=== PATIENT | male | born 1945 | race Caucasian/White ===

== ENCOUNTER → 2016-10-21 | Outpatient (CLI) | payer OTHER, MEDICARE ==
[~2016-10-21] MED LIST: ALL300 PO; FRS/40 PO; GEMF600T3 PO; GLC5 PO; GLC500 PO; LSN5 PO; METO-551 PO; POTA-327 PO; PRT40 PO; WARF5TAB7 PO
[2016-10-21 13:16] LABS: BASO % 0.2 %; BASO ABS # 0.02 K/uL (0-0.2); COMPLETE YES; EOS % 0.9 %; HEMATOCRIT 34.8 % (42-52); IG% 1.4 %; LYMPH % 16.8 %; MEAN CELL VOLUME 93.3 fL (80-100); MEAN CORPUSCULAR HEMOGLOBIN 29.8 pg (25-34); MEAN CORPUSCULAR HGB CONC 31.9 g/dl (32-36); MEAN PLATELET VOLUME 9.8 fL (7.4-10.4); MONO % 9.6 %; NEUT % 71.1 %; PLATELET COUNT 418 K/uL (130-400); RED BLOOD COUNT 3.73 M/uL (4.7-6.1); WHITE BLOOD COUNT 9.52 K/uL (4.8-10.8)
[2016-10-21 13:31] LABS: BLOOD UREA NITROGEN 31 mg/dl (7-18); BUN/CREATININE RATIO 21.9 (10-20); CARBON DIOXIDE 25 mmol/L (21-32); CHLORIDE 104 mmol/L (98-107); CHOLESTEROL 134 mg/dl (0-200); GLUCOSE 143 mg/dl (70-99); POTASSIUM 3.8 mmol/L (3.5-5.1); SODIUM 138 mmol/L (136-145); TRIGLYCERIDES 235 mg/dl (0-150); VERY LOW DENSITY LIPOPROT CALC 47 mg/dl
[2016-10-21 13:35] LABS: CHOLESTEROL/HDL RATIO 5.6; HDL CHOLESTEROL 24 mg/dl
[2016-10-21 13:38] LABS: ESTIMATED AVERAGE GLUCOSE 143 mg/dl; HA1C FLAG Normal (Normal)
== END | disposition home or self-care (01) ==
LOC: C.LABSPEC 12:23
PROVIDERS: ATTEND Internal Medicine
DX: E11.9 Type 2 diabetes mellitus without complications (principal); I10 Essential (primary) hypertension; E78.5 Hyperlipidemia, unspecified

== ENCOUNTER → 2017-02-08 | Outpatient (CLI) | payer OTHER, MEDICARE ==
[2017-02-08 15:04] LABS: BASO % 0.4 %; BASO ABS # 0.04 K/uL (0-0.2); COMPLETE YES; EOS % 0.7 %; IG% 2.1 %; LYMPH % 18.7 %; LYMPH ABS # 1.79 K/uL (1.2-3.4); MEAN CELL VOLUME 93.8 fL (80-100); MEAN CORPUSCULAR HEMOGLOBIN 30.8 pg (25-34); MEAN CORPUSCULAR HGB CONC 32.9 g/dl (32-36); MEAN PLATELET VOLUME 10.4 fL (7.4-10.4); MONO % 10.5 %; NEUT % 67.6 %; PLATELET COUNT 359 K/uL (130-400); RED BLOOD COUNT 3.73 M/uL (4.7-6.1); WHITE BLOOD COUNT 9.56 K/uL (4.8-10.8)
[2017-02-08 15:10] LABS: BLOOD UREA NITROGEN 36 mg/dl (7-18); BUN/CREATININE RATIO 24.1 (10-20); CALCIUM 9.1 mg/dl (8.5-10.1); CARBON DIOXIDE 27 mmol/L (21-32); CHLORIDE 102 mmol/L (98-107); CREATININE 1.51 mg/dl (0.60-1.40); GLUCOSE 151 mg/dl (70-99); POTASSIUM 3.9 mmol/L (3.5-5.1); SODIUM 136 mmol/L (136-145)
[2017-02-08 15:13] LABS: ALB/GLOB RATIO 0.7 (0.9-2)
[2017-02-08 15:14] LABS: ALKALINE PHOSPHATASE 99 U/L (45-117); ALT/SGPT 20 U/L (12-78); AST/SGOT 13 U/L (15-37); CHOLESTEROL 118 mg/dl (0-200); CHOLESTEROL/HDL RATIO 4.5; HDL CHOLESTEROL 26 mg/dl; TRIGLYCERIDES 257 mg/dl (0-150); VERY LOW DENSITY LIPOPROT CALC 51 mg/dl
[2017-02-09 06:08] LABS: ESTIMATED AVERAGE GLUCOSE 151 mg/dl; HA1C FLAG Normal (Normal)
== END | disposition home or self-care (01) ==
LOC: C.LABSPEC 14:47
PROVIDERS: ATTEND Internal Medicine
DX: E11.65 Type 2 diabetes mellitus with hyperglycemia (principal); E78.00 Pure hypercholesterolemia, unspecified; I10 Essential (primary) hypertension; D47.3 Essential (hemorrhagic) thrombocythemia

== ENCOUNTER → 2017-06-10 | Outpatient (CLI) | payer OTHER, MEDICARE ==
[2017-06-10 15:30] LABS: BASO % 0.4 %; BASO ABS # 0.03 K/uL (0-0.2); EOS % 0.8 %; EOS ABS # 0.06 K/uL (0-0.5); HEMATOCRIT 34.4 % (42-52); HEMOGLOBIN 11.3 g/dL (14.0-18.0); IG# 0.15 K/uL (0.00-0.02); LYMPH % 17.1 %; LYMPH ABS # 1.27 K/uL (1.2-3.4); MEAN CELL VOLUME 94.5 fL (80-100); MEAN CORPUSCULAR HGB CONC 32.8 g/dl (32-36); MEAN PLATELET VOLUME 10.4 fL (7.4-10.4); MONO % 8.5 %; MONO ABS # 0.63 K/uL (0.11-0.59); NEUT % 71.2 %; NEUT ABS # 5.27 K/uL (1.4-6.5); PLATELET COUNT 332 K/uL (130-400); RED CELL DISTRIBUTION WIDTH SD 55.6 fL (36.4-46.3); RETIC COUNT % 1.5 % (0.5-2.0); WHITE BLOOD COUNT 7.41 K/uL (4.8-10.8)
[2017-06-10 16:34] LABS: BLOOD UREA NITROGEN 27 mg/dl (7-18); CREATININE 1.64 mg/dl (0.60-1.40); GLUCOSE 213 mg/dl (70-99)
[2017-06-10 16:35] LABS: ALBUMIN 3.2 gm/dl (3.4-5.0); ALT/SGPT 21 U/L (12-78); AST/SGOT 16 U/L (15-37); CALCIUM 9.2 mg/dl (8.5-10.1); CARBON DIOXIDE 26 mmol/L (21-32); POTASSIUM 3.6 mmol/L (3.5-5.1); SODIUM 137 mmol/L (136-145)
[2017-06-10 16:37] LABS: ALKALINE PHOSPHATASE 96 U/L (45-117); TOTAL PROTEIN 8.5 gm/dl (6.4-8.2)
[2017-06-11 07:09] LABS: HEMOGLOBIN A1C 6.7 % (4.5-5.6)
== END | disposition home or self-care (01) ==
LOC: C.LABSPEC 14:27
PROVIDERS: ATTEND Internal Medicine
DX: E11.9 Type 2 diabetes mellitus without complications (principal); I10 Essential (primary) hypertension; D69.6 Thrombocytopenia, unspecified

== ENCOUNTER 2019-03-22 21:16 | Inpatient (IN) ==
[2019-03-22] MEDS ORDERED: LIDOCAINE/EPINEPHRINE 1% 20 ML VIAL INFIL ONE (21:27)
[2019-03-22 22:14] LABS: Basophils # (auto) 0.04 K/uL (0-0.2); Basophils % (auto) 0.2 %; Eosinophils # (auto) 0.01 K/uL (0-0.5); Eosinophils % (auto) 0.1 %; Hematocrit (blood only) 37.9 % (42-52); Hemoglobin 12.4 g/dL (14.0-18.0); Immature Granulocytes # (auto) 0.48 K/uL (0.00-0.02); Immature Granulocytes % (auto) 2.5 %; Lymphocytes % (auto) 7.9 %; Mean Corpuscular Hemoglobin 31.9 pg (25-34); Mean Corpuscular Hgb Conc 32.7 g/dL (32-36); Mean Corpuscular Volume 97.4 fL (80-100); Monocytes # (auto) 1.77 K/uL (0.11-0.59); Monocytes % (auto) 9.3 %; Neutrophils # (auto) 15.15 K/uL (1.4-6.5); Nucleated RBC # (auto) 0.05 K/uL (0-0); Nucleated RBC % (auto) 0.3 %; Platelet Count 570 K/uL (130-400); RDW Coefficient of Variation 16.2 % (11.5-14.5); RDW Standard Deviation 57.1 fL (36.4-46.3); Red Blood Count 3.89 M/uL (4.7-6.1); White Blood Count 18.95 K/uL (4.8-10.8)
[2019-03-22 22:24] LABS: INR 2.5 (0.9-1.1); Partial Thromboplastin Ratio 1.6; Partial Thromboplastin Time 42.3 Seconds (21.0-31.0); Prothrombin Time 23.6 Seconds (9.0-12.0)
[2019-03-22 22:35] LABS: Alanine Aminotransferase 16 U/L (12-78); Albumin Level 2.9 gm/dl (3.4-5.0); Aspartate Aminotransferase 13 U/L (15-37); BUN Creatinine Ratio 31.3 (10-20); Blood Urea Nitrogen 52 mg/dl (7-18); Calcium 9.3 mg/dl (8.5-10.1); Carbon Dioxide 32 mmol/L (21-32); Chloride 98 mmol/L (98-107); Creatinine Clr Calc Pharmacy 54.2 ml/min; Est GFR (African American) 46.4; Glucose 180 mg/dl (70-99); Magnesium 1.9 mg/dl (1.8-2.4); Potassium 3.2 mmol/L (3.5-5.1); Sodium 137 mmol/L (136-145)
[2019-03-22 22:40] LABS: Albumin Globulin Ratio 0.5 (0.9-2); Alkaline Phosphatase 106 U/L (45-117); Bilirubin,Total 1.5 mg/dl (0.2-1); Globulin 6.2 gm/dl (2.5-4.0); NT Pro B Type Natriuretic Pept 5498 pg/ml (0-900); Total Protein 9.1 gm/dl (6.4-8.2); Troponin I < 0.015 ng/ml (0-0.045)
--- NOTE | 2019-03-22 22:50 | XRay Report ---
SINGLE VIEW CHEST CLINICAL HISTORY: Dyspnea. FINDINGS: An AP, portable, upright chest radiograph is compared to study dated 03/18/2019. The examin ation is degraded by portable technique and patient rotation. The patient is status post midline ster notomy. The heart is enlarged and there is atherosclerotic calcification of the thoracic aorta. There is pulmonary vascular congestion. Bibasilar atelectasis is noted. No airspace consolidation or large pleural effusion is identified. No pneumothorax is seen. The skeletal structures are osteopenic. The bony thorax is grossly intact. IMPRESSION: Cardiomegaly with evidence of mild congestive failure. Electronically signed by: Ho Denny M.D. 03/22/2019 10:48 PM
[2019-03-22] MEDS ORDERED: FUROSEMIDE 40 MG/4 ML VIAL IV STA (22:53)
[2019-03-22] MEDS ORDERED: POTASSIUM CHLORIDE 20 MEQ TABCR PO STA (22:53)
[2019-03-22 23:12] LABS: Appearance Urine Clear (Clear); Bilirubin Urine Negative (Negative); Blood Urine Negative (Negative); Color Urine Yellow; Glucose Urine UA Negative (Negative); Ketones Urine Negative (Negative); Leukocyte Esterase Urine Negative (Negative); Nitrite Urine Negative (Negative); Protein Urine Negative (Negative); Specific Gravity Urine 1.011 (1.000-1.030); Urobilinogen Urine Negative (Negative); pH Urine 5.5 (4.5-7.5)
--- NOTE | 2019-03-23 00:27 | Emergency Department Note ---
Entered by Ivelisse Mcqueen acting as a scribe for Eligio Padilla MD History of Present Illness General Chief complaint: Shortness of Breath/Dyspnea Stated complaint: BLOODY NOSE, SOB Time Seen by Provider: 03/22/19 21:25 Source: patient History of Present Illness Onset (ago): hour(s) 2 Location: chest Pain Consistency: + constant Relieved By: + other (taking an extra 1mg of Coumadin than normally prescribed ) Associated symptoms: + denies other symptoms (abdominal pain ), + cough (with sputum, secondary to bronchitis ), + shortness of breath (secondary to recent bronchitis dx ) and + other (left sided epistaxis, right leg swelling today) The patient is a 73 year old elderly white male on Coumadin with a history of acute bronchitis, COPD, Afib, mechanical heart valve present, CHF, DM2, HTN who presents to the Emergency Room with complaints of shortness of breath. 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 He currently is experiencing left sided epistaxis and states that he has history of this when he takes more Coumadin than prescribed. Additionally he reports that he noticed his right leg filling up with fluid today as well as cough with sputum secondary to his bronchitis. Of note, the patient follows with Dr. Canales from cardiology. He has also had recent sickness exposure from his at home who is experiencing cold symptoms. The patient denies abdominal pain and offers no additional concerns at this time. Home Medications Home Medications Medication Instructions Recorded Confirmed Type allopurinol [Zyloprim] 300 mg PO QAM 01/09/18 03/22/19 History gemfibrozil [Lopid] 600 mg PO QAM 01/09/18 03/22/19 History glipizide [Glucotrol] 10 mg PO BID 01/09/18 03/22/19 History pantoprazole [Protonix] 40 mg PO QAM 01/09/18 03/22/19 History warfarin [Coumadin] 5 mg PO DAILY 01/09/18 03/22/19 History aspirin [Ecotrin Low Strength] 81 mg PO QAM #30 tab 01/14/18 03/22/19 Rx insulin glargine [Lantus Solostar 15 unit SUBCUT HS 11/12/18 03/22/19 History U-100 Insulin] furosemide 40 mg tablet 60 mg PO BID tab 03/14/19 03/22/19 History azithromycin [Zithromax] 500 mg PO DAILY 5 Days #5 tab 03/18/19 03/22/19 Rx metoprolol tartrate [Lopressor] 75 mg PO BID 03/18/19 03/22/19 History codeine-guaifenesin 10 ml PO Q4H PRN 03/22/19 03/22/19 History methylprednisolone 0 mg PO .DAILY/UD 03/22/19 03/22/19 History pregabalin 50 mg PO BID 03/22/19 03/22/19 History Allergies Allergy/AdvReac Type Severity Reaction Status Date / Time enoxaparin Allergy Unknown Illness Verified 03/18/19 07:42 adhesive AdvReac Unknown SORES WITH Verified 03/18/19 07:42 "SOME TAPE" oxycodone AdvReac Unknown HALLUCINATI Verified 03/18/19 07:42 ONS Morphine Derivatives Allergy Unknown Uncoded 03/18/19 07:42 Past Med/Surg History Medical History Afib Amputation of left lower extremity below knee Bronchitis Diabetes Surgical History Mechanical heart valve present S/P AKA (above knee amputation) unilateral Family History Other Family history of diabetes mellitus Social History Preferred Language: Upper Sorbian Communication Ability: Effective Visual Impairment: No 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 and A total of 10 systems reviewed and were otherwise negative Physical Exam Vital Signs Vital Signs - 24 hr 03/22/19 21:18 03/22/19 21:50 03/22/19 22:00 Temperature 36.7 C Temperature Source Oral Pulse Rate 112 H 95 H Pulse Rate [Apical] 105 H Pulse Rate from SpO2 Sensor 109 H Respiratory Rate 20 17 17 Respiratory Effort / Characteristics Non-Labored Spontaneous Non-Labored Spontaneous Respiratory Depth Normal Normal Blood Pressure 150/84 H 146/86 H Blood Pressure [Right Arm] 142/108 H Blood Pressure Mean 106 107 Blood Pressure Mean [Right Arm] 119 Pulse Oximetry 92 93 93 Oxygen Delivery Method Room Air Room Air Room Air Sepsis Recent Fever Within 48 Hours No Sepsis New/Unexplained Change in Mental Status No Sepsis Action Taken by Nursing No Action Required 03/22/19 22:31 03/22/19 23:10 03/23/19 00:00 Temperature Temperature Source Pulse Rate 90 103 H Pulse Rate [Apical] 101 H Pulse Rate from SpO2 Sensor 102 H Respiratory Rate 21 24 18 Respiratory Effort / Characteristics Respiratory Depth Blood Pressure 152/106 H 128/85 Blood Pressure [Right Arm] 165/103 H Blood Pressure Mean 144 90 Blood Pressure Mean [Right Arm] 123 Pulse Oximetry 91 93 90 Oxygen Delivery Method Room Air Room Air Room Air Sepsis Recent Fever Within 48 Hours Sepsis New/Unexplained Change in Mental Status Sepsis Action Taken by Nursing GENERAL: Well nourished, mildly uncomfortable in appearance, nasal clamp in place. EYE EXAM: Normal conjunctiva. PERRL, no anisocoria and EOM's grossly intact w/o pain. OROPHARYNX: Moist mucus membranes. Grossly normal dentition. No exudate, scant blood in posterior pharynx, no tonsillar/uvular deviation or swelling. Dry mucous membranes. NOSE: Mild to moderate bleeding to the left nares, septum. No septal hematoma. NECK: Supple, no nuchal rigidity, no adenopathy, non-tender. no signs of meningismus. LUNGS: Clear to auscultation. Normal chest wall mechanics. HEART: Tachycardiac and irregular, no MRG. ABDOMEN: Abdomen soft, non-tender, normo-active bowel sounds, no masses, no rebound or guarding. BACK: No CVA TTP. SKIN: No rashes and no bruising. UPPER EXTREMITIES: Upper extremities are grossly normal. LOWER EXTREMITIES: No calf pain. Left BKA. Right 2-3+ LE edema. NEURO EXAM: A&O x3, cranial nerves II-XII grossly intact, normal speech, moves all 4 extremities on command w/o issue. Procedures Epistaxis Control Time Out Performed: Yes Nostril: left Nose Prepped With: lidocaine Direct Inspection: yes Clots Removed by: blowing nose Cautery Used: none Device Inserted: hemostatic balloon Device Size: 5 Patient Tolerated Procedure: well and no complications Course Course 2132: Past medical records reviewed. The patient was evaluated in room B06. A complete history and physical exam was performed. 2133: The patient was placed on a joint cutter machine. 2314: I checked on the patient. He is requesting chap stick. 2337: I re-evaluated the patient and packed his nose. [facility]. The patient verbally expressed understanding and agreement of the treatment plan. The patient will be evaluated for further treatment. Administered Medications Discontinued Medications Furosemide (Lasix) 40 mg IV NOW STA Stop: 03/22/19 22:54 Last Admin: 03/22/19 23:20 Dose: 40 mg Documented by: [id number] Lidocaine/Epinephrine (Xylocaine/Epinephrine 1%) 20 ml INFIL NOW ONE Stop: 03/22/19 21:28 Last Admin: 03/22/19 22:16 Dose: 20 ml Documented by: [id number] Potassium Chloride (Klor-Con M20) 40 meq PO NOW STA Stop: 03/22/19 22:54 Last Admin: 03/22/19 23:20 Dose: 40 meq Documented by: [id number] Medical Decision Making Differential Diagnosis Differential diagnosis includes but is not limited to etiologies such as anterior epistaxis, coagulopathy, traumatic injury, fracture, septal hematoma, posterior epistaxis, infections, reactive airway disease, pneumonia, pneumothorax, COPD, CHF, cardiac ischemia, pulmonary embolism, musculoskeletal, gastrointestinal, as well as others were entertained. Medical Records Attestation: I reviewed the patient's medical records. The patient was recently seen in the ED on 03/18/19 for cough and congestion. He was prescribed a course of Prednisone and Zithromax at this time and his symptoms were thought to be bronchitis. Additionally, he is on Coumadin for a mechanical valve and Afib. Home Medications Current Medication List: was personally reviewed by me Laboratory Data Attestation: I reviewed the patient's lab results. Result diagrams: 03/22/19 21:56 03/22/19 21:56 Lab Results 03/22/19 03/22/19 03/22/19 Range/Units 21:56 21:56 21:56 WBC 18.95 H (4.8-10.8) K/uL RBC 3.89 L (4.7-6.1) M/uL Hgb 12.4 L (14.0-18.0) g/dL Hct 37.9 L (42-52) % MCV 97.4 (80-100) fL MCH 31.9 (25-34) pg MCHC 32.7 (32-36) g/dL RDW Std Deviation 57.1 H (36.4-46.3) fL RDW Coeff of Joes 16.2 H (11.5-14.5) % Plt Count 570 H (130-400) K/uL MPV 11.0 H (7.4-10.4) fL Immature Gran % (Auto) 2.5 % Neut % (Auto) 80.0 % Lymph % (Auto) 7.9 % [place] % (Auto) 9.3 % Eos % (Auto) 0.1 % Baso % (Auto) 0.2 % Immature Gran # (Auto) 0.48 H (0.00-0.02) K/uL Neut # (Auto) 15.15 H (1.4-6.5) K/uL Lymph # (Auto) 1.50 (1.2-3.4) K/uL Tama # (Auto) 1.77 H (0.11-0.59) K/uL Eos # (Auto) 0.01 (0-0.5) K/uL Baso # (Auto) 0.04 (0-0.2) K/uL Absolute Nucleated RBC 0.05 H (0-0) K/uL Nucleated RBC % (auto) 0.3 % PT 23.6 H (9.0-12.0) Seconds INR 2.5 H (0.9-1.1) APTT 42.3 H (21.0-31.0) Seconds PTT Ratio 1.6 Sodium 137 (136-145) mmol/L Potassium 3.2 L (3.5-5.1) mmol/L Chloride 98 (98-107) mmol/L Carbon Dioxide 32 (21-32) mmol/L Anion Gap 7.0 (3-11) BUN 52 H (7-18) mg/dl Creatinine 1.66 H (0.6-1.4) mg/dl Est Cr Clr Drug Dosing 54.2 ml/min Est GFR ( Amer) 46.4 Est GFR (Non-Af Amer) 40.0 BUN/Creatinine Ratio 31.3 H (10-20) Glucose 180 H (70-99) mg/dl Calcium 9.3 (8.5-10.1) mg/dl Magnesium 1.9 (1.8-2.4) mg/dl Total Bilirubin 1.5 H (0.2-1) mg/dl AST 13 L (15-37) U/L ALT 16 (12-78) U/L Alkaline Phosphatase 106 (45-117) U/L Troponin I < 0.015 (0-0.045) ng/ml NT-Pro-B Natriuret Pep 5498 H (0-900) pg/ml Total Protein 9.1 H (6.4-8.2) gm/dl Albumin 2.9 L (3.4-5.0) gm/dl Globulin 6.2 H (2.5-4.0) gm/dl Albumin/Globulin Ratio 0.5 L (0.9-2) Urine Color Urine Appearance (Clear) Urine pH (4.5-7.5) Ur Specific [place] (1.000-1.030) Urine Protein (Negative) Urine Glucose (UA) (Negative) Urine Ketones (Negative) Urine Blood (Negative) Urine Nitrite (Negative) Urine Bilirubin (Negative) Urine Urobilinogen (Negative) Ur Leukocyte Esterase (Negative) 03/22/19 Range/Units 23:03 WBC (4.8-10.8) K/uL RBC (4.7-6.1) M/uL Hgb (14.0-18.0) g/dL Hct (42-52) % MCV (80-100) fL MCH (25-34) pg MCHC (32-36) g/dL RDW Std Deviation (36.4-46.3) fL RDW Coeff of Jose (11.5-14.5) % Plt Count (130-400) K/uL MPV (7.4-10.4) fL Immature Gran % (Auto) % Neut % (Auto) % Lymph % (Auto) % [place] % (Auto) % Eos % (Auto) % Baso % (Auto) % Immature Gran # (Auto) (0.00-0.02) K/uL Neut # (Auto) (1.4-6.5) K/uL Lymph # (Auto) (1.2-3.4) K/uL [place] # (Auto) (0.11-0.59) K/uL Eos # (Auto) (0-0.5) K/uL Baso # (Auto) (0-0.2) K/uL Absolute Nucleated RBC (0-0) K/uL Nucleated RBC % (auto) % PT (9.0-12.0) Seconds INR (0.9-1.1) APTT (21.0-31.0) Seconds PTT Ratio Sodium (136-145) mmol/L Potassium (3.5-5.1) mmol/L Chloride (98-107) mmol/L Carbon Dioxide (21-32) mmol/L Anion Gap (3-11) BUN (7-18) mg/dl Creatinine (0.6-1.4) mg/dl Est Cr Clr Drug Dosing ml/min Est GFR ( Amer) Est GFR (Non-Af Amer) BUN/Creatinine Ratio (10-20) Glucose (70-99) mg/dl Calcium (8.5-10.1) mg/dl Magnesium (1.8-2.4) mg/dl Total Bilirubin (0.2-1) mg/dl AST (15-37) U/L ALT (12-78) U/L Alkaline Phosphatase (45-117) U/L Troponin I (0-0.045) ng/ml NT-Pro-B Natriuret Pep (0-900) pg/ml Total Protein (6.4-8.2) gm/dl Albumin (3.4-5.0) gm/dl Globulin (2.5-4.0) gm/dl Albumin/Globulin Ratio (0.9-2) Urine Color Yellow Urine Appearance Clear (Clear) Urine pH 5.5 (4.5-7.5) Ur Specific [place] 1.011 (1.000-1.030) Urine Protein Negative (Negative) Urine Glucose (UA) Negative (Negative) Urine Ketones Negative (Negative) Urine Blood Negative (Negative) Urine Nitrite Negative (Negative) Urine Bilirubin Negative (Negative) Urine Urobilinogen Negative (Negative) Ur Leukocyte Esterase Negative (Negative) Imaging Data Radiologist's Impression: Radiology results as stated below per my review and the radiologist's interpretation: SINGLE VIEW CHEST CLINICAL HISTORY: Dyspnea. FINDINGS: An AP, portable, upright chest radiograph is compared to study dated 03/18/2019. The examination is degraded by portable technique and patient rotation. The patient is status post midline sternotomy. The heart is enlarged and there is atherosclerotic calcification of the thoracic aorta. There is pulmonary vascular congestion. Bibasilar atelectasis is noted. No airspace consolidation or large pleural effusion is identified. No pneumothorax is seen. The skeletal structures are osteopenic. The bony thorax is grossly intact. IMPRESSION: Cardiomegaly with evidence of mild congestive failure. Electronically signed by: Ho Denny M.D. 03/22/2019 10:48 PM ECG Data Attestation: I personally reviewed and interpreted this ECG as follows: Indication: + SOB/dyspnea Rate (beats per minute): 100 Rhythm: + atrial fibrillation ECG Intervals/blocks: + Normal QRS ECG [place]: + Normal ECG Findings: + PVCs Comparison ECG Date: from (03/18/19) Change: the following changes noted (rate today is improved and there is no bundle branch block today) Blood Pressure Blood Pressure Findings: Elevated blood pressure Blood Pressure Disposition: further management by hospitalist KAMAR Narrative The patient is a 73 year old elderly white male on Coumadin with a history of acute bronchitis, COPD, Afib, mechanical heart valve present, CHF, DM2, HTN who presents to the Emergency Room with complaints of shortness of breath. Patient was seen and evaluated the bedside. The patient did present with concern for some shortness of breath with lying flat. The patient was recently seen for bronchitis and was started on prednisone and azithromycin. The patient does have a prior history of A. fib and a mechanical valve for which she does take Coumadin. The patient also does present with epistaxis. The patient does have some left-sided epistaxis. The patient did initially trial lidocaine with epinephrine and the nasal clamp this did not improve it. The patient does appear to be clinically volume overloaded with some crackles in the bilateral chest and associated lower extremity swelling. The patient does have mild white count believe this is more related to the steroids. Patient does not have evidence of focal consolidation. The patient has had some lower oxygen saturations but these appear consistent with prior although may be slightly worsened given the patient's increasing fluid retention. Kidney function is essentially at baseline. Glucose is somewhat elevated but may also be related to the patient's steroid use. Patient was given a dose of Lasix in addition to potassium given that it is 3.2. The patient continued to bleed from the left nares and does have some bleeding to the left septum without septal hematoma. The patient's left naris was packed with a rapid Rhino. Given the patient's concern for continued respiratory issues and the fact that his nose was packed I did discuss possible outpatient versus inpatient treatment. Patient was subsequently admitted to the medicine service did speak with Dr. Ryan who agreed to further evaluate and treat the patient. Patient was admitted. Impression & Plan CHF exacerbation, Epistaxis, Bronchitis Discharge Plan Visit Data Chief Complaint: Shortness of Breath/Dyspnea Stated Complaint: BLOODY NOSE, SOB ED Provider: Eligio Padilla Discharge Problem: CHF exacerbation, Epistaxis, Bronchitis Patient Disposition: Being Evaluated by Hospitalist Forms Stand Alone Forms: [facility] Prescriptions Prescriptions: No Action Lantus Solostar U-100 Insulin 100 unit/mL (3 mL) insulin pen 15 unit subcut HS RF: 0 furosemide [Lasix] 40 mg tablet 60 mg PO BID RF: 0 glipizide [Glucotrol] 10 mg tablet 10 mg PO BID RF: 0 gemfibrozil [Lopid] 600 mg tablet 600 mg PO QAM RF: 0 pantoprazole [Protonix] 40 mg tablet,delayed release (DR/EC) 40 mg PO QAM RF: 0 allopurinol [Zyloprim] 300 mg tablet 300 mg PO QAM RF: 0 warfarin [Coumadin] 5 mg Tablet 5 mg PO DAILY RF: 0 aspirin [Ecotrin Low Strength] 81 mg Tablet,Delayed Release (Dr/Ec) 81 mg PO QAM Qty: 30 RF: 0 metoprolol tartrate [Lopressor] 50 mg tablet 75 mg PO BID RF: 0 azithromycin [Zithromax] 500 mg tablet 500 mg PO DAILY 5 Days Qty: 5 RF: 0 pregabalin 50 mg capsule 50 mg PO BID RF: 0 codeine-guaifenesin 10-100 mg/5 mL liquid 10 ml PO Q4H PRN (Reason: Cough) RF: 0 methylprednisolone 4 mg tablets,dose pack 0 mg PO .DAILY/UD RF: 0 Referrals Referrals: Leonel Manriquez MD [Primary Care Provider] - Discharge Problem: CHF exacerbation Qualifiers: Heart failure type: unspecified Qualified Code(s): I50.9 - Heart failure, unspecified The scribe's documentation has been prepared under my direction and personally reviewed by me in its entirety. I confirm that the note above accurately reflects all work, treatment, procedures, and medical decision making performed by me.
--- NOTE | 2019-03-23 01:00 | History & Physical Report ---
Date of Service March 22, 2019 Assessment & Plan (1) Epistaxis: Patient with balloon in place. No visible bleeding from anterior or in posterior pharynx at present. INR therapeutic at 2.5 -Maintain balloon in place for now -Monitor for continued bleeding -CBC in AM -Patient may have melenic stools due to swallowing of blood during his epistaxis Present on Admission?: Yes (2) CHF exacerbation: Patient appears to be mildly volume overloaded. Also with complaints of worsening orthopnea, cough with pink-tinged sputum, ?pulmonary edema vs effects of recent bronchitis. He is breathing comfortably, no respiratory distress. Adequate oxygenation on room air -Admit to medical floor with telemetry monitoring -Lasix 40mg IV BID -Strict I/O measurements, daily weights -BMP BID, electrolyte repletion and attention to renal function -Continue home Lopressor Present on Admission?: Yes (3) GERD (gastroesophageal reflux disease): Chronic. Stable -Continue Protonix 40mg po daily Present on Admission?: Yes (4) Gout: History of gout. No active flare -Continue Allopurinol. Adjust if needed based on renal function Present on Admission?: Yes (5) Anemia: Normochromic, normocytic. Hgb=12.4, Hct=37.9 which is near baseline. Expect small drop from blood loss due to epistaxis -Continue to monitor, CBC in AM Present on Admission?: Yes (6) Hypertension: Blood pressure adequately controlled at present, 128/85 -Continue Lopressor -Continue to monitor Present on Admission?: Yes (7) Mechanical heart valve present: Placed in 1997. Last visualized with echocardiogram in January 2019, in place and well functioning. On Coumadin anticoagulation, therapeutic at 2.5 -Continue Coumadin. Dose recently changed to 5mg po daily -INR q daily Present on Admission?: Yes (8) Diabetes: Patient with well controlled Type II DM. Blood whmgr=958 today. HgbA1C= 6.7 on 01/20/19 -Continue Lantus 15u qHS -ISS -Hold Glipizide while inpatient -Continue Lyrica for neuropathy (9) Hyperlipidemia: Chronic. Stable -Continue Gemfibrozil F/E/N - Diuresis as above with Lasix 40mg IV BID, check BMP BID, CC/Heart healthy diet as tolerated Ppx - Continue Coumadin at home dose with daily INR, Continue Protonix at home dose Code - Full Dispo - Admit to medical floor with telemetry monitorin History of Present Illness Chief Complaint: SOB, epistaxis Primary Care Provider: Leonel Manriquez MD Mr. Merchant is a pleasant 73yo C male with multiple medical comorbidities to include HTN/HLP/DM, COPD, diastolic CHF. Recently diagnosed with bronchitis and treated with Azithromycin, Prednisone and Robitussin/Codeine. Patient presents today with worsening shortness of breath, fatigue and orthopnea as well as epistaxis. Patient was coughing and developed left nare epistaxis at appx 19:45 this evening. He applied pressure but continue bleeding. He reports the blood was pouring down the back of his throat and making it somewhat difficult to breathe. No prior episodes of epistaxis. Denies digital manipulation of nare. Additionally, patient reports worsening orthopnea as well as a cough productive for pink tinged sputum. Fatigue x 2 weeks as well as occasional chest pressure and orthopnea. Also with chronic constipation. No additional complaints at this time, specifically no fevers/chills/nausea/vomiting/diarrhea. No dysuria. He recently fell on his stump and reports that it is slightly sore. ER Course: Lasix 40mg IV, Nasal Lido/Epi, hemostatic balloon placed Allergies Allergy/AdvReac Type Severity Reaction Status Date / Time enoxaparin Allergy Unknown Illness Verified 03/18/19 07:42 adhesive AdvReac Unknown SORES WITH Verified 03/18/19 07:42 "SOME TAPE" oxycodone AdvReac Unknown HALLUCINATI Verified 03/18/19 07:42 ONS Morphine Derivatives Allergy Unknown Uncoded 03/18/19 07:42 Home Medications Home Medications Medication Instructions Recorded Confirmed Type allopurinol [Zyloprim] 300 mg PO QAM 01/09/18 03/22/19 History gemfibrozil [Lopid] 600 mg PO QAM 01/09/18 03/22/19 History glipizide [Glucotrol] 10 mg PO BID 01/09/18 03/22/19 History pantoprazole [Protonix] 40 mg PO QAM 01/09/18 03/22/19 History warfarin [Coumadin] 5 mg PO DAILY 01/09/18 03/22/19 History aspirin [Ecotrin Low Strength] 81 mg PO QAM #30 tab 01/14/18 03/22/19 Rx insulin glargine [Lantus Solostar 15 unit SUBCUT HS 11/12/18 03/22/19 History U-100 Insulin] furosemide 40 mg tablet 60 mg PO BID tab 03/14/19 03/22/19 History azithromycin [Zithromax] 500 mg PO DAILY 5 Days #5 tab 03/18/19 03/22/19 Rx metoprolol tartrate [Lopressor] 75 mg PO BID 03/18/19 03/22/19 History codeine-guaifenesin 10 ml PO Q4H PRN 03/22/19 03/22/19 History methylprednisolone 0 mg PO .DAILY/UD 03/22/19 03/22/19 History pregabalin 50 mg PO BID 03/22/19 03/22/19 History Past Med/Surg History Medical History (Updated 03/23/19 @ 00:59 by Manisha Ryan DO) Afib Amputation of left lower extremity below knee Anemia Bronchitis CHF (congestive heart failure) (Acute) Diabetes GERD (gastroesophageal reflux disease) Gout Hyperlipidemia Hypertension Surgical History (Updated 03/23/19 @ 00:44 by Manisha Ryan DO) History of appendectomy History of cholecystectomy Mechanical heart valve present 1997 S/P AKA (above knee amputation) unilateral Family History Other Family history of diabetes mellitus Social History Preferred Language: [place] Communication Ability: Effective Visual Impairment: No 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 Beliefs That Will Affect Care: None marital status: Current Living Situation: Spouse Feels Safe at Home: Yes Smoking Status: Never smoker Second Hand Exposure: No ; Hx Alcohol Use: No Hx Substance Use: No Review of Systems Review of Systems: All systems reviewed & are unremarkable except as noted in HPI & below Physical Exam Physical Exam: General: patient resting comfortably, NAD, non-toxic in appearance, AA&O x 4, nasal balloon present in left nare Skin: warm, dry, intact, no rashes or lesions HEENT: NC/AT, PERRL, EOMI, anicteric sclera, conjunctiva without injection, ext ernal ear normal to inspection and nontender, moist mucus membranes, dentition intact, no oropharyngeal lesions, neck supple, trachea midline, no LAD, no thyromegaly, no JVD Heart: +S1/S2, irregularly irregular, no m/r/g Lungs: equal air entry bilaterally,+crackles in bilateral bases, no wheezing Abd: obese, +BS, soft, NT/ND, no masses/organomegaly/ascites Ext: s/p left AKA, stump slightly tender, RLE cool, 1+ pulses, 2+ edema Neuro: nonfocal, patient AA&O x 4, speech intact, no facial droop, sitting in motorized scooter, bilateral UE and RLE 5/5 strength Results & Data Vital Signs (Past 12 Hours) Vital Signs Temp Pulse Pulse Resp BP BP Pulse Ox 03/23/19 00:00 103 H 18 128/85 90 03/22/19 23:10 101 H 24 165/103 H 93 03/22/19 22:31 90 21 152/106 H 91 03/22/19 22:00 95 H 17 146/86 H 93 03/22/19 21:50 105 H 17 142/108 H 93 03/22/19 21:18 36.7 C 112 H 20 150/84 H 92 Laboratory Results Lab Results 03/22/19 03/22/19 03/22/19 Range/Units 21:56 21:56 21:56 WBC 18.95 H (4.8-10.8) K/uL RBC 3.89 L (4.7-6.1) M/uL Hgb 12.4 L (14.0-18.0) g/dL Hct 37.9 L (42-52) % MCV 97.4 (80-100) fL MCH 31.9 (25-34) pg MCHC 32.7 (32-36) g/dL RDW Std Deviation 57.1 H (36.4-46.3) fL RDW Coeff of Jose 16.2 H (11.5-14.5) % Plt Count 570 H (130-400) K/uL MPV 11.0 H (7.4-10.4) fL Immature Gran % (Auto) 2.5 % Neut % (Auto) 80.0 % Lymph % (Auto) 7.9 % [place] % (Auto) 9.3 % Eos % (Auto) 0.1 % Baso % (Auto) 0.2 % Immature Gran # (Auto) 0.48 H (0.00-0.02) K/uL Neut # (Auto) 15.15 H (1.4-6.5) K/uL Lymph # (Auto) 1.50 (1.2-3.4) K/uL [place] # (Auto) 1.77 H (0.11-0.59) K/uL Eos # (Auto) 0.01 (0-0.5) K/uL Baso # (Auto) 0.04 (0-0.2) K/uL Absolute Nucleated RBC 0.05 H (0-0) K/uL Nucleated RBC % (auto) 0.3 % PT 23.6 H (9.0-12.0) Seconds INR 2.5 H (0.9-1.1) APTT 42.3 H (21.0-31.0) Seconds PTT Ratio 1.6 Sodium 137 (136-145) mmol/L Potassium 3.2 L (3.5-5.1) mmol/L Chloride 98 (98-107) mmol/L Carbon Dioxide 32 (21-32) mmol/L Anion Gap 7.0 (3-11) BUN 52 H (7-18) mg/dl Creatinine 1.66 H (0.6-1.4) mg/dl Est Cr Clr Drug Dosing 54.2 ml/min Est GFR ( Amer) 46.4 Est GFR (Non-Af Amer) 40.0 BUN/Creatinine Ratio 31.3 H (10-20) Glucose 180 H (70-99) mg/dl Calcium 9.3 (8.5-10.1) mg/dl Magnesium 1.9 (1.8-2.4) mg/dl Total Bilirubin 1.5 H (0.2-1) mg/dl AST 13 L (15-37) U/L ALT 16 (12-78) U/L Alkaline Phosphatase 106 (45-117) U/L Troponin I < 0.015 (0-0.045) ng/ml NT-Pro-B Natriuret Pep 5498 H (0-900) pg/ml Total Protein 9.1 H (6.4-8.2) gm/dl Albumin 2.9 L (3.4-5.0) gm/dl Globulin 6.2 H (2.5-4.0) gm/dl Albumin/Globulin Ratio 0.5 L (0.9-2) Urine Color Urine Appearance (Clear) Urine pH (4.5-7.5) Ur Specific [place] (1.000-1.030) Urine Protein (Negative) Urine Glucose (UA) (Negative) Urine Ketones (Negative) Urine Blood (Negative) Urine Nitrite (Negative) Urine Bilirubin (Negative) Urine Urobilinogen (Negative) Ur Leukocyte Esterase (Negative) 03/22/19 Range/Units 23:03 WBC (4.8-10.8) K/uL RBC (4.7-6.1) M/uL Hgb (14.0-18.0) g/dL Hct (42-52) % MCV (80-100) fL MCH (25-34) pg MCHC (32-36) g/dL RDW Std Deviation (36.4-46.3) fL RDW Coeff of Jose (11.5-14.5) % Plt Count (130-400) K/uL MPV (7.4-10.4) fL Immature Gran % (Auto) % Neut % (Auto) % Lymph % (Auto) % [place] % (Auto) % Eos % (Auto) % Baso % (Auto) % Immature Gran # (Auto) (0.00-0.02) K/uL Neut # (Auto) (1.4-6.5) K/uL Lymph # (Auto) (1.2-3.4) K/uL [place] # (Auto) (0.11-0.59) K/uL Eos # (Auto) (0-0.5) K/uL Baso # (Auto) (0-0.2) K/uL Absolute Nucleated RBC (0-0) K/uL Nucleated RBC % (auto) % PT (9.0-12.0) Seconds INR (0.9-1.1) APTT (21.0-31.0) Seconds PTT Ratio Sodium (136-145) mmol/L Potassium (3.5-5.1) mmol/L Chloride (98-107) mmol/L Carbon Dioxide (21-32) mmol/L Anion Gap (3-11) BUN (7-18) mg/dl Creatinine (0.6-1.4) mg/dl Est Cr Clr Drug Dosing ml/min Est GFR ( Amer) Est GFR (Non-Af Amer) BUN/Creatinine Ratio (10-20) Glucose (70-99) mg/dl Calcium (8.5-10.1) mg/dl Magnesium (1.8-2.4) mg/dl Total Bilirubin (0.2-1) mg/dl AST (15-37) U/L ALT (12-78) U/L Alkaline Phosphatase (45-117) U/L Troponin I (0-0.045) ng/ml NT-Pro-B Natriuret Pep (0-900) pg/ml Total Protein (6.4-8.2) gm/dl Albumin (3.4-5.0) gm/dl Globulin (2.5-4.0) gm/dl Albumin/Globulin Ratio (0.9-2) Urine Color Yellow Urine Appearance Clear (Clear) Urine pH 5.5 (4.5-7.5) Ur Specific [place] 1.011 (1.000-1.030) Urine Protein Negative (Negative) Urine Glucose (UA) Negative (Negative) Urine Ketones Negative (Negative) Urine Blood Negative (Negative) Urine Nitrite Negative (Negative) Urine Bilirubin Negative (Negative) Urine Urobilinogen Negative (Negative) Ur Leukocyte Esterase Negative (Negative) Diagnostic Findings SINGLE VIEW CHEST CLINICAL HISTORY: Dyspnea. FINDINGS: An AP, portable, upright chest radiograph is compared to study dated 03/18/2019. The examination is degraded by portable technique and patient rotation. The patient is status post midline sternotomy. The heart is enlarged and there is atherosclerotic calcification of the thoracic aorta. There is pul monary vascular congestion. Bibasilar atelectasis is noted. No airspace consolidation or large pleural effusion is identified. No pneumothorax is seen. The skeletal structures are osteopenic. The bony thorax is grossly intact. IMPRESSION: Cardiomegaly with evidence of mild congestive failure. Electronically signed by: Ho Denny M.D. 03/22/2019 10:48 PM Dictated: 03/22/192247 Transcribed: 03/22/192247 ECG Additional Comments: The study shows AF at 100bpm, left axis, SCG=414, QNc=660, TW flattening Code Status & VTE Plan Code Status FULL VTE Prophylaxis Plan VTE Prophylaxis will be ordered: Yes PG Care Time/CCT Total # of Minutes Spent Total Time Spent with Patient: Total time spent is greater than 50% in coordination of care (as documented) at patient's floor/unit and/or counseling patient: (1) CHF exacerbation Heart failure type: unspecified Qualified Code(s): I50.9 - Heart failure, unspecified (2) GERD (gastroesophageal reflux disease) Esophagitis presence: esophagitis presence not specified Qualified Code(s): K21.9 - Gastro-esophageal reflux disease without esophagitis (3) Gout Gout site: unspecified site Gout etiology: unspecified cause Chronicity: unspecified Qualified Code(s): M10.9 - Gout, unspecified (4) Anemia Anemia type: unspecified type Qualified Code(s): D64.9 - Anemia, unspecified (5) Hypertension Hypertension type: essential hypertension Qualified Code(s): I10 - Essential (primary) hypertension (6) Diabetes Diabetes mellitus type: type 2 Diabetes mellitus 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
[2019-03-23] MEDS ORDERED: GUAIFENESIN/CODEINE 200MG/20MG 10ML UDC PO PRN (01:18)
[2019-03-23] MEDS ORDERED: CARBOHYDRATES FOR HYPOGLYCEMIA PO PRN (01:18)
[2019-03-23] MEDS ORDERED: DEXTROSE 50% 50 ML SYRINGE IV PRN (01:18)
[2019-03-23] MEDS ORDERED: DOCUSATE SODIUM 100 MG CAP PO PRN (01:18)
[2019-03-23] MEDS ORDERED: GLUCOSE 40% GEL 15 GM TUBE PO PRN (01:18)
[2019-03-23] MEDS ORDERED: ACETAMINOPHEN 325 MG TAB PO PRN (01:18)
[2019-03-23] MEDS ORDERED: GLUCOSE 10 TABS/TUBE PO PRN (01:18)
[2019-03-23] MEDS ORDERED: POLYETHYLENE (MIRALAX) 17 GM PACK PO PRN (01:18)
[2019-03-23] MEDS ORDERED: GLUCAGON FOR INJ 1 MG VIAL SQ PRN (01:18)
[2019-03-23] MEDS ORDERED: bisacodyL 10 MG SUPP PR PRN (01:18)
[2019-03-23 01:32] LABS: Phosphorus 3.6 mg/dl (2.5-4.9)
[2019-03-23 01:50] LABS: INR 2.5 (0.9-1.1); Prothrombin Time 23.8 Seconds (9.0-12.0)
[2019-03-23 01:59] LABS: BUN Creatinine Ratio 31.3 (10-20); Calcium 9.1 mg/dl (8.5-10.1); Creatinine Clr Calc Pharmacy 53.6 ml/min; Est GFR (African American) 45.7; Est GFR (Non-African American) 39.4; Potassium 3.6 mmol/L (3.5-5.1)
[2019-03-23] MEDS: METOPROLOL TARTRATE 25 MG TAB PO SCH ×2 (07:52→21:14)
[2019-03-23] MEDS: AMOXICILLIN/CLAVULANATE 875 MG TAB PO SCH ×2 (07:53→17:17)
[2019-03-23] MEDS: gemfibroziL 600 MG TAB PO SCH (07:54)
[2019-03-23] MEDS: ASPIRIN 81 MG ECTAB PO SCH (07:54)
[2019-03-23] MEDS: allopurinoL 300 MG TAB PO SCH (07:55)
[2019-03-23] MEDS: PANTOprazole 40 MG TAB PO SCH (07:55)
[2019-03-23 08:08] LABS: Basophils # (auto) 0.06 K/uL (0-0.2); Basophils % (auto) 0.3 %; Eosinophils # (auto) 0.01 K/uL (0-0.5); Hematocrit (blood only) 38.6 % (42-52); Hemoglobin 12.5 g/dL (14.0-18.0); Immature Granulocytes # (auto) 0.48 K/uL (0.00-0.02); Immature Granulocytes % (auto) 2.3 %; Lymphocytes # (auto) 2.25 K/uL (1.2-3.4); Lymphocytes % (auto) 10.9 %; Mean Corpuscular Hemoglobin 31.7 pg (25-34); Mean Platelet Volume 11.2 fL (7.4-10.4); Monocytes # (auto) 2.12 K/uL (0.11-0.59); Monocytes % (auto) 10.3 %; Neutrophils % (auto) 76.2 %; Platelet Count 629 K/uL (130-400); RDW Coefficient of Variation 16.2 % (11.5-14.5); RDW Standard Deviation 57.9 fL (36.4-46.3); Red Blood Count 3.94 M/uL (4.7-6.1); White Blood Count 20.62 K/uL (4.8-10.8)
[2019-03-23 08:18] LABS: Mean Corpuscular Hgb Conc 32.4 g/dL (32-36)
[2019-03-23 08:32] LABS: BUN Creatinine Ratio 33.2 (10-20); Calcium 9.6 mg/dl (8.5-10.1); Creatinine Clr Calc Pharmacy 58.5 ml/min; Est GFR (African American) 50.8; Est GFR (Non-African American) 43.8; Potassium 3.2 mmol/L (3.5-5.1)
[2019-03-23] MEDS: FUROSEMIDE 40 MG in SYRINGE 0 ML IV SCH ×2 (09:06→21:12)
[2019-03-23] MEDS: PREGABALIN 50 MG CAP PO SCH ×2 (09:06→21:14)
[2019-03-23] MEDS: INSULIN ASPART 100 UNITS/ML 3 ML PEN SC SCH ×4 (09:07→21:14)
--- NOTE | 2019-03-23 10:11 | Hospitalist Progress Note ---
Date of Service March 23, 2019 Assessment & Plan (1) COPD exacerbation: MR. Merchant is a 73yo M with a PMHx of CHF, GERD, COPD, L AKA, T2DM, A fib and gout who presents with an acute on chronic CHF exacerbation and epistaxis. Acute on Chronic CHF Exacerbation likely sec to uncontrolled a fib - Clinically volume overloaded, JVD/edema/LLL crackles on exam - BNP 5498. 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 - Hypertension management as below Leukocytosis - No obvious sign of infection - ? sec to stress reaction - follow T2DM with neuropathy, s/p L BKA - Glargine 15u SQ qHS, SSI - Pregabalin 50mg PO BID - BSG AC/HS - BMP daily Mechanical [facility] Valve - On coumadin - Coumadin 5mg PO daily - INR 2.5 Anemia - CBC Q12H in setting of acute bleed - Normocytic GERD - Protonix 40mg qAM Gout - Allopurinol 300mg PO qam HTN/HLD - Gemfibrozil 600mg qAM - Continue metoprolol tartrate 75mg PO BID DVT Prophylaxis: On coumadin FENGI: T2DM diet Code Status: Full (2) Acute bronchitis: (3) Hx of AKA (above knee amputation): (4) Hyperglycemia due to type 2 diabetes mellitus: (5) Epistaxis: (6) Acute kidney injury: (7) CHF exacerbation: (8) GERD (gastroesophageal reflux disease): (9) Anemia: (10) Hypertension: (11) Mechanical heart valve present: (12) Diabetes: (13) Hyperlipidemia: Supervising Physician Co-Signing Physician Notes Resident Physician Supervision Note: I independently interviewed and examined the patient and verified the martin history and physical, reviewed labs and image studies, discussed the case with the resident Dr. Nguyen and agree with the findings and care plan. Subjective Mr. Merchant is seen at the bedside this morning. He reprots he continues to be slightly short of breath, but is without chest pain or difficulty breathing. Trace swelling in his R leg. Denies spitting up blood or epistaxis since his nasal balloon was placed. Denies lightheadedness/dizziness/syncope/presyncope. Review of Systems Review of Systems: Constitutional: Denies fever, chills. Endorse fatigue Eyes: Denies acute vision change ENT: Denies ear pain, sore throat. Endorses nasal pressure, epistaxis. Cardiovascular: Denies Chest pain, chest pressure, palpitations. Endorses extremity swelling. Respiratory: Endorses shortness of breath. Denies difficulty breathing. Gastrointestinal: Denies abdominal pain, nausea, vomiting, constipation, diarrhea Genitourinary: Denies pain with urination Musculoskeletal: Endorses neuropathy and history of gout. Denies acute joint/muscle pain. Integumentary: Denies new rash, lesions Neurological: Denies headache. Endorses numbness of the R leg/neuropathy. Heme: Endorses epistaxis Physical Exam Physical Exam: General: A&Ox3. NAD. Cooperative. HEENT: Normocephalic. Balloon tampanade present in L nare, balloon inflated but not hard. Posterior oropharynx without erythema/blood/drainage. R nare without anterior plexus bleed, no septal erosion. PERLAA. Vision grossly intact. Pulm: LLL soft crackles/light rales. Symmetrical chest rise. No increased work of breathing. No respiratory distress. Cardiac: RRR, -mrg. Radial pulses intact and symmetrical. JVD to 1-2cm above the clavicle with +HJR. Abdominal: Nontender, nondistended, soft. BS present. Extremity: S/p L BKA. R leg wtih 2+ edema. Numbness to soft touch in the R foot. Onchomycosis of the R foot/nails. Results & Data Vital Signs (Past 12 Hours) Vital Signs Temp Pulse Pulse Resp BP BP Pulse Ox 03/23/19 07:30 140 H 134/70 03/23/19 04:49 36.3 C L 60 18 145/91 H 93 03/23/19 00:45 36.5 C 97 H 18 149/77 H 91 03/23/19 00:00 103 H 18 128/85 90 03/22/19 23:10 101 H 24 165/103 H 93 03/22/19 22:31 90 21 152/106 H 91 Resident Activity Tracking Resident Involvement: Resident Care Provided Care Provided: Adult Hospital Medicine (1) CHF exacerbation Heart failure type: unspecified Qualified Code(s): I50.9 - Heart failure, unspecified (2) Diabetes Diabetes mellitus complication detail: with polyneuropathy Diabetes mellitus complication status: with neurologic complications 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 insulin use: with long goods drier use Diabetes mellitus type: type 2 Qualified Code(s): E11.42 - Type 2 diabetes mellitus with diabetic polyneuropathy; Z79.4 - [facility] (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 insulin (3) Anemia Anemia type: unspecified type Qualified Code(s): D64.9 - Anemia, unspecified (4) Hyperlipidemia Hyperlipidemia type: unspecified Qualified Code(s): E78.5 - Hyperlipidemia, unspecified (5) GERD (gastroesophageal reflux disease) Esophagitis presence: esophagitis presence not specified Qualified Code(s): K21.9 - Gastro-esophageal reflux disease without esophagitis (6) Hypertension Hypertension type: essential hypertension Qualified Code(s): I10 - Essential (primary) hypertension
[2019-03-23] MEDS ORDERED: POTASSIUM CHLORIDE 20 MEQ TABCR PO ONE (10:15)
[2019-03-23] MEDS: POTASSIUM CHLORIDE 20 MEQ TABCR PO SCH ×2 (13:32→21:13)
[2019-03-23] MEDS ORDERED: METOPROLOL TARTRATE 1 MG/ML VIAL IV PRN (15:20)
[2019-03-23] MEDS: WARFARIN SOD 5 MG TAB PO SCH (16:27)
[2019-03-23 17:15] LABS: BUN Creatinine Ratio 31.7 (10-20); Calcium 9.2 mg/dl (8.5-10.1); Creatinine Clr Calc Pharmacy 58.8 ml/min; Est GFR (African American) 51.2; Est GFR (Non-African American) 44.1; Potassium 3.5 mmol/L (3.5-5.1)
[2019-03-23] MEDS: INSULIN GLARGINE SOLOSTAR 100 UNITS/ML 3 ML PEN SQ SCH (21:13)
--- NOTE | 2019-03-24 02:28 | Progress Note ---
Date of Service March 24, 2019 Assessment & Plan (1) Epistaxis: Informed by nursing that patient had pulled out his balloon packing from his left nostril, and blood was slowly oozing from his nostril. Reviewed chart. Patient was meant to have the balloon packing in for 48h longer. INR today was 2.5. Patient was seen at bedside. Verbal consent was obtained to replace the packing in his nostril. His left nostril had dried blood around the opening. A 4.5cm anterior rapid rhino was soaked in sterile saline, and inserted into his left nostril without resistance. 4cc of air was used to insufflate the packing. The rhino rocket was secured in place with a piece of tape. The patient tolerated the procedure well. Vic Ga, PGY-3 Overnight call resident Results & Data Vital Signs (Past 12 Hours) Vital Signs Temp Pulse Pulse Pulse Resp BP BP 03/24/19 01:00 104 H 03/23/19 23:37 36.9 C 102 H 18 137/84 03/23/19 23:16 106 H 03/23/19 20:25 36.3 C L 102 H 20 146/77 H 03/23/19 16:14 97 H 20 164/106 H Pulse Ox 03/24/19 01:00 03/23/19 23:37 92 03/23/19 23:16 03/23/19 20:25 96 03/23/19 16:14 92 Resident Activity Tracking Resident Involvement: Luggage Liner Coverage Note Care Provided: Adult Hospital Medicine
[2019-03-24 05:53] LABS: Basophils # (auto) 0.04 K/uL (0-0.2); Basophils % (auto) 0.2 %; Eosinophils # (auto) 0.04 K/uL (0-0.5); Eosinophils % (auto) 0.2 %; Hematocrit (blood only) 36.9 % (42-52); Hemoglobin 11.7 g/dL (14.0-18.0); Immature Granulocytes # (auto) 0.49 K/uL (0.00-0.02); Immature Granulocytes % (auto) 2.7 %; Lymphocytes # (auto) 1.37 K/uL (1.2-3.4); Lymphocytes % (auto) 7.6 %; Mean Corpuscular Hgb Conc 31.7 g/dL (32-36); Mean Corpuscular Volume 97.6 fL (80-100); Mean Platelet Volume 10.9 fL (7.4-10.4); Monocytes # (auto) 1.68 K/uL (0.11-0.59); Monocytes % (auto) 9.3 %; Neutrophils # (auto) 14.51 K/uL (1.4-6.5); Nucleated RBC # (auto) 0.06 K/uL (0-0); Nucleated RBC % (auto) 0.3 %; Platelet Count 548 K/uL (130-400); RDW Coefficient of Variation 16.6 % (11.5-14.5); RDW Standard Deviation 58.3 fL (36.4-46.3); Red Blood Count 3.78 M/uL (4.7-6.1); White Blood Count 18.13 K/uL (4.8-10.8)
[2019-03-24 06:00] LABS: INR 2.3 (0.9-1.1); Prothrombin Time 22.3 Seconds (9.0-12.0)
[2019-03-24 06:35] LABS: BUN Creatinine Ratio 32.6 (10-20); Calcium 9.2 mg/dl (8.5-10.1); Creatinine Clr Calc Pharmacy 59.5 ml/min; Est GFR (Non-African American) 44.9; Potassium 3.3 mmol/L (3.5-5.1)
[2019-03-24] MEDS ORDERED: POTASSIUM CHLORIDE 20 MEQ TABCR PO ONE (08:15)
[2019-03-24] MEDS: PANTOprazole 40 MG TAB PO SCH (08:33)
[2019-03-24] MEDS: METOPROLOL TARTRATE 25 MG TAB PO SCH ×2 (08:33→21:31)
[2019-03-24] MEDS: PREGABALIN 50 MG CAP PO SCH ×2 (08:33→21:32)
[2019-03-24] MEDS: allopurinoL 300 MG TAB PO SCH (08:33)
[2019-03-24] MEDS: AMOXICILLIN/CLAVULANATE 875 MG TAB PO SCH ×2 (08:33→17:39)
[2019-03-24] MEDS: POTASSIUM CHLORIDE 20 MEQ TABCR PO SCH ×3 (08:34→21:27)
[2019-03-24] MEDS: gemfibroziL 600 MG TAB PO SCH (08:34)
[2019-03-24] MEDS: ASPIRIN 81 MG ECTAB PO SCH (08:34)
[2019-03-24] MEDS: INSULIN ASPART 100 UNITS/ML 3 ML PEN SC SCH ×4 (08:35→21:33)
[2019-03-24] MEDS: FUROSEMIDE 40 MG in SYRINGE 0 ML IV SCH (08:36)
[2019-03-24] MEDS ORDERED: FUROSEMIDE 20 MG in SYRINGE 0 ML IV ONE (09:15)
[2019-03-24] MEDS ORDERED: MICONAZOLE NITRATE POWDER 43 GM EXT PRN (09:32)
[2019-03-24] MEDS: POLYETHYLENE (MIRALAX) 17 GM PACK PO SCH ×2 (09:36→13:36)
--- NOTE | 2019-03-24 13:44 | Hospitalist Progress Note ---
Date of Service March 24, 2019 Assessment & Plan (1) CHF exacerbation: (1) COPD exacerbation: MR. Merchant is a 73yo M with a PMHx of CHF, GERD, COPD, L AKA, T2DM, A fib and gout who presents with an acute on chronic CHF exacerbation and epistaxis. Acute on Chronic combined CHF Exacerbation likely sec to uncontrolled a fib - Still clinically volume overloaded this am, improved throughout the day today with increase of Lasix 60 BID, up from 40 BID. - Continue Lasix 60 mg IV BID, follow I/O's, consider transition back to PO based on output and exam in the am. 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 - CXR cardiomegaly, bibasilar atelectasis - BNP 5498 at admission Metabolic encephlopathy - Woke up confused this morning, but has good insight - Keep patient oriented, open shades in the morning Atrial fibrillation with RVR - Continue home Metoprolol - Add IV lopressor for HR > 120 - On warfarin for mechanical valve Epistaxis - Balloon tamponade in place in L nare - No anterior bleed appreciated on admitting exam, suspect posterior bleed 2/2 anticoagulation - Patient removed last night with minor bleeding - Hgb remains stable, continue to follow H/H - Remove balloon tamponade in 72 hours - Hypertension management as below Leukocytosis - No obvious sign of infection, but was on course of steroids prior to admission, likely contributing - Continue to follow CKD 3 - monitor renal function while diuresing . T2DM with neuropathy, s/p L BKA - Glargine 15u SQ qHS, SSI - Pregabalin 50mg PO BID - BSG AC/HS - BMP daily Mechanical [facility] [place] Valve - Coumadin 5mg PO daily, follow INR - 2.3, slightly subtherapuetic, will tolerate in the setting of significant epistaxis, but if INR drops any lower, increase Coumadin dose tomorrow Anemia - CBC Q12H in setting of acute bleed - Normocytic GERD - Protonix 40mg qAM Gout - Allopurinol 300mg PO qam HTN/HLD - Gemfibrozil 600mg qAM - Continue metoprolol tartrate 75mg PO BID Morbid obesity BMI 42 - supportive care DVT Prophylaxis: On coumadin FENGI: T2DM diet Code Status: Full (2) Hyperlipidemia: (3) Diabetes: (4) Mechanical heart valve present: (5) Hypertension: (6) Anemia: (7) Gout: (8) GERD (gastroesophageal reflux disease): (9) Epistaxis: Supervising Physician Co-Signing Physician Notes Resident Physician Supervision Note: I independently interviewed and examined the patient and verified the amrtin history and physical, reviewed labs and image studies, discussed the case with the resident Dr. Mary Reyes and agree with the findings and care plan. Subjective Patient said that he felt confused when he woke up but is feeling better now. No SOB, no CP, no palpitations. His daughter is present. She states that he does have some short term memory issues. Review of Systems Constitutional: no fever, no chills and no sweats Respiratory: no cough, no dyspnea and no dyspnea on exertion Cardiovascular: no chest pain, no dyspnea and no palpitations Gastrointestinal: no abdominal pain, no nausea and no vomiting Physical Exam Constitutional: WD/WN, vitals as above Eyes: PERRL, conjunctivae normal, anicteric sclerae ENMT: external ear and nose normal, oropharynx normal Neck: trachea midline, no thyromegaly Respiratory: normal respiratory effort; no respiratory distress, no labored breathing and no cough Auscultation: + diminished lung sounds and + crackles Cardiovascular: RRR, no murmur, no edema Gastrointestinal (Abdomen): normal bowel sounds, soft, nontender, no hepatosplenomegaly Musculoskeletal: no cyanosis or clubbing, extremities motor strength 5/5 Skin: no rashes, warm and dry Neurologic: PERRL, EOMI, accommodation nl, no face palsy, no dysarthria Psychiatric: A+Ox3, euthymic affect Results & Data Vital Signs (Past 12 Hours) Vital Signs Temp Pulse Pulse Resp BP BP Pulse Ox 03/24/19 11:19 36.4 C L 92 H 20 133/86 93 03/24/19 07:36 36.9 C 95 H 20 136/87 95 03/24/19 07:18 92 H 03/24/19 04:27 36.7 C 74 18 118/73 94 03/24/19 03:56 144 H Resident Activity Tracking Resident Involvement: Resident Care Provided Care Provided: Adult Hospital Medicine (1) CHF exacerbation Heart failure type: unspecified Qualified Code(s): I50.9 - Heart failure, unspecified (2) Diabetes Diabetes mellitus complication detail: with polyneuropathy Diabetes mellitus complication status: with neurologic complications Diabetes mellitus rn long term care insulin use: with rn long term care use Diabetes mellitus type: type 2 Qualified Code(s): E11.42 - Type 2 diabetes mellitus with diabetic polyneuropathy; Z79.4 - long-term (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 insulin (3) Gout Chronicity: unspecified Gout etiology: unspecified cause Gout site: unspecified site Qualified Code(s): M10.9 - Gout, unspecified (4) Anemia Anemia type: unspecified type Qualified Code(s): D64.9 - Anemia, unspecified (5) Hyperlipidemia Hyperlipidemia type: unspecified Qualified Code(s): E78.5 - Hyperlipidemia, unspecified (6) GERD (gastroesophageal reflux disease) Esophagitis presence: esophagitis presence not specified Qualified Code(s): K21.9 - Gastro-esophageal reflux disease without esophagitis (7) Hypertension Hypertension type: essential hypertension Qualified Code(s): I10 - Essential (primary) hypertension
[2019-03-24] MEDS: WARFARIN SOD 5 MG TAB PO SCH (16:48)
[2019-03-24 17:11] LABS: BUN Creatinine Ratio 29.4 (10-20); Calcium 9.5 mg/dl (8.5-10.1); Creatinine Clr Calc Pharmacy 55.4 ml/min; Est GFR (African American) 47.7; Est GFR (Non-African American) 41.2; Potassium 3.9 mmol/L (3.5-5.1)
[2019-03-24] MEDS ORDERED: FUROSEMIDE 60 MG in SYRINGE 0 ML IV SCH (21:00)
[2019-03-24] MEDS: INSULIN GLARGINE SOLOSTAR 100 UNITS/ML 3 ML PEN SQ SCH (21:30)
[2019-03-25 05:38] LABS: Basophils # (auto) 0.03 K/uL (0-0.2); Basophils % (auto) 0.2 %; Eosinophils # (auto) 0.07 K/uL (0-0.5); Eosinophils % (auto) 0.4 %; Hemoglobin 11.9 g/dL (14.0-18.0); Immature Granulocytes # (auto) 0.75 K/uL (0.00-0.02); Immature Granulocytes % (auto) 4.7 %; Lymphocytes # (auto) 1.45 K/uL (1.2-3.4); Mean Corpuscular Hemoglobin 31.1 pg (25-34); Mean Corpuscular Hgb Conc 32.2 g/dL (32-36); Mean Corpuscular Volume 96.6 fL (80-100); Neutrophils # (auto) 12.17 K/uL (1.4-6.5); Neutrophils % (auto) 75.7 %; Platelet Count 537 K/uL (130-400); RDW Coefficient of Variation 16.9 % (11.5-14.5); RDW Standard Deviation 59.1 fL (36.4-46.3); Red Blood Count 3.83 M/uL (4.7-6.1); White Blood Count 16.07 K/uL (4.8-10.8)
[2019-03-25 05:45] LABS: INR 3.1 (0.9-1.1)
[2019-03-25 05:59] LABS: Creatinine Clr Calc Pharmacy 55.8 ml/min; Est GFR (African American) 48.1; Est GFR (Non-African American) 41.5; Potassium 3.6 mmol/L (3.5-5.1)
[2019-03-25] MEDS: INSULIN ASPART 100 UNITS/ML 3 ML PEN SC SCH ×4 (08:21→21:14)
[2019-03-25] MEDS: gemfibroziL 600 MG TAB PO SCH (08:22)
[2019-03-25] MEDS: ASPIRIN 81 MG ECTAB PO SCH (08:22)
[2019-03-25] MEDS: METOPROLOL TARTRATE 25 MG TAB PO SCH (08:23)
[2019-03-25] MEDS: allopurinoL 300 MG TAB PO SCH (08:23)
[2019-03-25] MEDS: PANTOprazole 40 MG TAB PO SCH (08:23)
[2019-03-25] MEDS: POTASSIUM CHLORIDE 20 MEQ TABCR PO SCH ×3 (08:23→21:12)
[2019-03-25] MEDS: AMOXICILLIN/CLAVULANATE 875 MG TAB PO SCH ×2 (08:24→17:16)
[2019-03-25] MEDS: PREGABALIN 50 MG CAP PO SCH ×2 (08:27→21:13)
[2019-03-25] MEDS: FUROSEMIDE 40 MG TAB PO SCH ×2 (08:27→17:16)
--- NOTE | 2019-03-25 14:26 | Hospitalist Progress Note ---
Date of Service March 25, 2019 Assessment & Plan (1) CHF exacerbation: Mr. Merchant is a 73yo M with a PMHx of CHF, GERD, COPD, L AKA, T2DM, A fib and gout who presents with an acute on chronic CHF exacerbation and epistaxis. Acute on Chronic combined CHF Exacerbation likely sec to uncontrolled a fib - CXR cardiomegaly, bibasilar atelectasis - Clinically improving in terms of volume status -Negative 2000ml last 24 hrs. -DC'd Lasix 60 mg IV BID and switched to home PO regimen 60 mg BID, follow I/O's - Continue Metoprolol 100mg PO BID -Added low dose 2.5 mg Lisinipril as pt was not on ACEi/ARB prior in setting of CHF dx Episode of confusion - Woke up confused this morning, but has good insight - Keep patient oriented, open shades in the morning Atrial fibrillation with RVR - Continue home Metoprolol. Increased to 100 mg BID from 75 mg BID for better rate control - Add IV lopressor for HR > 120 - On warfarin for mechanical valve Epistaxis-resolved -03/25 removed Balloon tamponade in place in L nare given 72 hr duration completion - No anterior bleed appreciated on admitting exam, suspect posterior bleed 2/2 anticoagulation - Hgb remains stable, continue to follow H/H - Hypertension management as below Leukocytosis - No obvious sign of infection, but was on course of steroids prior to admission, likely contributing - Continue to follow CKD 3 - monitor renal function while diuresing T2DM with neuropathy, s/p L BKA - Glargine 15u SQ qHS, SSI - Pregabalin 50mg PO BID - BSG AC/HS - BMP daily Mechanical [facility] Ricardo Valve - Coumadin 5mg PO daily, follow INR - 2.3, slightly subtherapuetic, will tolerate in the setting of significant epistaxis, but if INR drops any lower, increase Coumadin dose tomorrow Anemia - h/h stable - Normocytic GERD - Protonix 40mg qAM Gout - Allopurinol 300mg PO qam HTN/HLD - Gemfibrozil 600mg qAM - Continue metoprolol tartrate 75mg PO BID Morbid obesity BMI 42 - supportive care DVT Prophylaxis: On coumadin FENGI: T2DM diet Code Status: Full Dispo: Anticipate d/c tomorrow. Supervising Physician Co-Signing Physician Notes Resident Physician Supervision Note: I independently interviewed and examined the patient and verified the martin history and physical, reviewed labs and image studies, discussed the case with the resident Dr. Maldonado and agree with the findings and care plan. Subjective 73 yo M found in bed this AM in NAD. No reported overnight events. States feels good, breathing better. Only complaint of feeling dry 2/2 fluid restriction. Epistaxis resolved. No other acute concerns or complaints. Review of Systems Review of Systems: All systems reviewed & are unremarkable except as noted in HPI & below Physical Exam Constitutional: WD/WN, vitals as above Eyes: PERRL, conjunctivae normal, anicteric sclerae ENMT: external ear and nose normal, oropharynx normal Respiratory: mild crackles Cardiovascular: RRR, no murmur, no edema Gastrointestinal (Abdomen): normal bowel sounds, soft, nontender, no hepatosplenomegaly Skin: no rashes, warm and dry Psychiatric: A+Ox3, euthymic affect Results & Data Vital Signs (Past 12 Hours) Vital Signs Temp Pulse Resp BP Pulse Ox 03/25/19 11:17 36.6 C 78 20 146/92 H 93 03/25/19 07:30 37.0 C 109 H 20 129/82 90 03/25/19 04:30 36.9 C 101 H 20 146/84 H 94 Laboratory Results Laboratory Results - last 24 hr 03/24/19 03/24/19 03/24/19 16:30 16:38 20:03 WBC RBC Hgb Hct MCV MCH MCHC RDW Std Deviation RDW Coeff of Jose Plt Count MPV Immature Gran % (Auto) Neut % (Auto) Lymph % (Auto) [place] % (Auto) Eos % (Auto) Baso % (Auto) Immature Gran # (Auto) Neut # (Auto) Lymph # (Auto) [place] # (Auto) Eos # (Auto) Baso # (Auto) PT INR Sodium 136 Potassium 3.9 D Chloride 97 L Carbon Dioxide 33 H Anion Gap 6.0 BUN 48 H Creatinine 1.62 H Est Cr Clr Drug Dosing 55.4 Est GFR ( Amer) 47.7 Est GFR (Non-Af Amer) 41.2 BUN/Creatinine Ratio 29.4 H Glucose 130 H POC Glucose 151 H 176 H Calcium 9.5 03/25/19 03/25/1903/25/19 05:18 05:18 05:18 WBC 16.07 H RBC 3.83 L Hgb 11.9 L Hct 37.0 L MCV 96.6 MCH 31.1 MCHC 32.2 RDW Std Deviation 59.1 H RDW Coeff of Jose 16.9 H Plt Count 537 H MPV 11.0 H Immature Gran % (Auto) 4.7 Neut % (Auto) 75.7 Lymph % (Auto) 9.0 [place] % (Auto) 10.0 Eos % (Auto) 0.4 Baso % (Auto) 0.2 Immature Gran # (Auto) 0.75 H Neut # (Auto) 12.17 H Lymph # (Auto) 1.45 [place] # (Auto) 1.60 H Eos # (Auto) 0.07 Baso # (Auto) 0.03 PT 29.0 H INR 3.1 H Sodium 136 Potassium 3.6 Chloride 99 Carbon Dioxide 34 H Anion Gap 3.0 BUN 47 H Creatinine 1.61 H Est Cr Clr Drug Dosing 55.8 Est GFR ( Amer) 48.1 Est GFR (Non-Af Amer) 41.5 BUN/Creatinine Ratio 29.0 H Glucose 130 H POC Glucose Calcium 9.0 03/25/19 03/25/19 07:59 11:42 WBC RBC Hgb Hct MCV MCH MCHC RDW Std Deviation RDW Coeff of Jose Plt Count MPV Immature Gran % (Auto) Neut % (Auto) Lymph % (Auto) [place] % (Auto) Eos % (Auto) Baso % (Auto) Immature Gran # (Auto) Neut # (Auto) Lymph # (Auto) [place] # (Auto) Eos # (Auto) Baso # (Auto) PT INR Sodium Potassium Chloride Carbon Dioxide Anion Gap BUN Creatinine Est Cr Clr Drug Dosing Est GFR ( Amer) Est GFR (Non-Af Amer) BUN/Creatinine Ratio Glucose POC Glucose 136 H 156 H Calcium Medications Administered Current Inpatient Medications Acetaminophen (Tylenol) 650 mg PO Q4H PRN PRN Reason: pain/fever Stop: 04/22/19 01:17 [facility]oprim) [facility] [place] [place]: 04/22/19 08:59 Last Admin: 03/25/19 08:23 Dose: 300 mg Documented by: Amoxicillin/Clavulanate Potassium (Augmentin 875mg) 1 tab PO BIDM [facility] Stop: 04/02/19 07:59 Last Admin: 03/25/19 08:24 Dose: 1 tab Documented by: Aspirin (Ecotrin Ectab) 81 mg PO QAM [facility] Stop: 04/22/19 08:59 Last Admin: 03/25/19 08:22 Dose: 81 mg Documented by: Bisacodyl (Dulcolax) 10 mg CA DAILY PRN PRN Reason: Constipation Stop: 04/22/19 01:17 Dextrose (Dextrose 50%) 25 - 50 ml IV UD PRN; Protocol PRN Reason: Hypoglycemia Protocol Stop: 04/22/19 01:17 Docusate Sodium (Colace) 100 mg PO BID PRN PRN Reason: Constipation Stop: 04/22/19 01:17 Furosemide (Lasix) 60 mg PO BID17 [facility] Stop: 04/24/19 08:59 Last Admin: 03/25/19 08:27 Dose: 60 mg Documented by: Gemfibrozil (Lopid) [address] [facility] Stop: 04/22/19 08:59 Last Admin: 03/25/19 08:22 Dose: 600 mg Documented by: Glucagon (Glucagen) 1 mg SQ UD PRN; Protocol PRN Reason: Hypoglycemia Protocol Stop: 04/22/19 01:17 Glucose (Dex4 Glucose) 4 - 8 tabs PO UD PRN; Protocol PRN Reason: Hypoglycemia Protocol Stop: 04/22/19 01:17 Glucose (Glucose 40%) 15 - 30 gm PO UD PRN; Protocol PRN Reason: Hypoglycemia Protocol Stop: 04/22/19 01:17 Guaifenesin/Codeine Phosphate (Robitussin-Ac Sugar Free) 10 ml PO Q4H PRN PRN Reason: Cough Stop: 04/22/19 01:17 Insulin Aspart (Novolog Flexpen) 0 units SC ACHS [facility] Stop: 04/22/19 07:29 Last Admin: 03/25/19 12:18 Dose: 4 units Documented by: Insulin Glargine (Lantus Solostar Pen) 15 units SQ HS [facility] Stop: 04/22/19 20:59 Last Admin: 03/24/19 21:30 Dose: 15 units Documented by: Lisinopril (Zestril) 2.[address] [facility] Stop: 04/24/19 11:59 Last Admin: 03/25/19 12:17 Dose: 2.5 mg Documented by: Metoprolol Tartrate (Lopressor) 5 mg IV Q4 PRN PRN Reason: tachycardia Stop: 04/22/19 15:59 Last Admin: 03/24/19 03:56 Dose: 5 mg Documented by: Metoprolol Tartrate (Lopressor) 100 mg PO BID [facility] Stop: 04/24/19 20:59 Miconazole Nitrate (Desenex) 1 appln EXT PRN PRN PRN Reason: Affected Skin Folds Stop: 04/23/19 09:31 Miscellaneous (Carbohydrates For Hypoglycemia) 15 - 30 gm PO UD PRN PRN Reason: Hypoglycemia Protocol Stop: 04/22/19 01:17 Pantoprazole Sodium (Protonix) 40 mg PO QAM [facility] Stop: 04/22/19 08:59 Last Admin: 03/25/19 08:23 Dose: 40 mg Documented by: Polyethylene Glycol (Miralax Powder Packet) 17 gm PO DAILY PRN PRN Reason: Constipation Stop: 04/22/19 01:17 Potassium Chloride (Klor-Con M20) 20 meq PO TID [facility] Stop: 04/22/19 13:59 Last Admin: 03/25/19 13:59 Dose: 20 meq Documented by: Pregabalin (Lyrica) 50 mg PO BID [facility] Stop: 04/22/19 08:59 Last Admin: 03/25/19 08:27 Dose: 50 mg Documented by: Warfarin Sodium (Coumadin) 5 mg PO DAILY@1600 [facility] Stop: 04/22/19 15:59 Last Admin: 03/24/19 16:48 Dose: 5 mg Documented by: Resident Activity Tracking Resident Involvement: Resident Care Provided Care Provided: Adult Hospital Medicine (1) CHF exacerbation Heart failure type: unspecified Qualified Code(s): I50.9 - Heart failure, unspecified
[2019-03-25] MEDS: WARFARIN SOD 5 MG TAB PO SCH (17:08)
[2019-03-25] MEDS: INSULIN GLARGINE SOLOSTAR 100 UNITS/ML 3 ML PEN SQ SCH (21:12)
[2019-03-25] MEDS: METOPROLOL TARTRATE 100 MG TAB PO SCH (21:13)
[2019-03-26 05:49] LABS: Basophils # (auto) 0.03 K/uL (0-0.2); Basophils % (auto) 0.2 %; Eosinophils % (auto) 0.6 %; Hematocrit (blood only) 37.4 % (42-52); Hemoglobin 12.1 g/dL (14.0-18.0); Immature Granulocytes # (auto) 0.86 K/uL (0.00-0.02); Lymphocytes # (auto) 1.69 K/uL (1.2-3.4); Lymphocytes % (auto) 9.9 %; Mean Corpuscular Hemoglobin 31.3 pg (25-34); Mean Corpuscular Hgb Conc 32.4 g/dL (32-36); Mean Corpuscular Volume 96.6 fL (80-100); Monocytes % (auto) 11.1 %; Neutrophils # (auto) 12.49 K/uL (1.4-6.5); Neutrophils % (auto) 73.2 %; Nucleated RBC # (auto) 0.03 K/uL (0-0); Nucleated RBC % (auto) 0.2 %; Platelet Count 632 K/uL (130-400); RDW Standard Deviation 59.4 fL (36.4-46.3); Red Blood Count 3.87 M/uL (4.7-6.1); White Blood Count 17.07 K/uL (4.8-10.8)
[2019-03-26 06:10] LABS: Prothrombin Time 33.8 Seconds (9.0-12.0)
[2019-03-26 06:13] LABS: INR 3.6 (0.9-1.1)
[2019-03-26 06:23] LABS: BUN Creatinine Ratio 29.2 (10-20); Calcium 9.6 mg/dl (8.5-10.1); Creatinine Clr Calc Pharmacy 53.1 ml/min; Est GFR (African American) 45.7; Est GFR (Non-African American) 39.4; Potassium 3.8 mmol/L (3.5-5.1)
[2019-03-26] MEDS: INSULIN ASPART 100 UNITS/ML 3 ML PEN SC SCH ×2 (08:30→12:12)
[2019-03-26] MEDS: PREGABALIN 50 MG CAP PO SCH (08:31)
[2019-03-26] MEDS: PANTOprazole 40 MG TAB PO SCH (08:32)
[2019-03-26] MEDS: ASPIRIN 81 MG ECTAB PO SCH (08:32)
[2019-03-26] MEDS: gemfibroziL 600 MG TAB PO SCH (08:32)
[2019-03-26] MEDS: FUROSEMIDE 40 MG TAB PO SCH (08:32)
[2019-03-26] MEDS: POTASSIUM CHLORIDE 20 MEQ TABCR PO SCH (08:33)
[2019-03-26] MEDS: METOPROLOL TARTRATE 100 MG TAB PO SCH (08:33)
[2019-03-26] MEDS: AMOXICILLIN/CLAVULANATE 875 MG TAB PO SCH (08:33)
[2019-03-26] MEDS: allopurinoL 300 MG TAB PO SCH (08:33)
--- NOTE | 2019-03-26 10:58 | Discharge Summary ---
Date of Service March 26, 2019 Admission HPI Per Admitting Provider Mr. Merchant is a pleasant 73yo C male with multiple medical comorbidities to include HTN/HLP/DM, COPD, diastolic CHF. Recently diagnosed with bronchitis and treated with Azithromycin, Prednisone and Robitussin/Codeine. Patient presents today with worsening shortness of breath, fatigue and orthopnea as well as epistaxis. Patient was coughing and developed left nare epistaxis at appx 19:45 this evening. He applied pressure but continue bleeding. He reports the blood was pouring down the back of his throat and making it somewhat difficult to breathe. No prior episodes of epistaxis. Denies digital manipulation of nare. Additionally, patient reports worsening orthopnea as well as a cough productive for pink tinged sputum. Fatigue x 2 weeks as well as occasional chest pressure and orthopnea. Also with chronic constipation. No additional complaints at this time, specifically no fevers/chills/nausea/vomiting/diarrhea. No dysuria. He recently fell on his stump and reports that it is slightly sore. ER Course: Lasix 40mg IV, Nasal Lido/Epi, hemostatic balloon placed Principal Diagnosis chf exacerbation Discharge Exam Constitutional WD/WN, vitals as above Eyes PERRL, conjunctivae normal, anicteric sclerae ENMT external ear and nose normal, oropharynx normal Respiratory normal respiratory effort; no respiratory distress and no labored breathing Cardiovascular RRR, no murmur, no edema Gastrointestinal (Abdomen) normal bowel sounds, soft, nontender, no hepatosplenomegaly Skin no rashes, warm and dry Psychiatric A+Ox3, euthymic affect Discharge Data Allergies Allergy/AdvReac Type Severity Reaction Status Date / Time enoxaparin Allergy Unknown Illness Verified 03/18/19 07:42 adhesive AdvReac Unknown SORES WITH Verified 03/18/19 07:42 "SOME TAPE" oxycodone AdvReac Unknown HALLUCINATI Verified 03/18/19 07:42 ONS Morphine Derivatives Allergy Unknown Uncoded 03/18/19 07:42 Consultations 03/22/19 23:41 ED Decision to Admit Stat 03/26/19 10:17 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 Merchant is a 73yo M with a PMHx of CHF, GERD, COPD, L AKA, T2DM, A fib and gout who presents with an acute on chronic CHF exacerbation and epistaxis. The following was the medical management during stay here: Acute on Chronic combined CHF Exacerbation likely 2/2 uncontrolled a fib - CXR cardiomegaly, bibasilar atelectasis - Clinically improved in terms of volume status -Negative 3.2L on d/c -DC'd Lasix 60 mg IV BID and switched to home PO regimen 60 mg BID, follow I/O's - Continue Metoprolol 100mg PO BID -Added low dose 2.5 mg Lisinopril as pt was not on ACEi/ARB prior in setting of CHF dx -pt to be set up with CHF clinic on d/c Atrial fibrillation with RVR - Continue home Metoprolol. Increased to 100 mg BID from 75 mg BID for better rate control - On warfarin for mechanical valve Epistaxis-resolved -03/25 removed Balloon tamponade in place in L nare given 72 hr duration complet ion - No anterior bleed appreciated on admitting exam, suspect posterior bleed 2/2 anticoagulation - Hgb remains stable - Hypertension management as below Leukocytosis - No obvious sign of infection, but was on course of steroids prior to admission, likely contributing CKD 3 - monitor renal function while diuresing. Cr was stable Mechanical [facility]ardo Valve - Coumadin 5mg PO daily, follow INR Anemia - h/h stable - Normocytic GERD - Protonix 40mg qAM Gout - Allopurinol 300mg PO qam HTN/HLD - Gemfibrozil 600mg qAM - Continue metoprolol tartrate 100mg PO BID Morbid obesity BMI 42 - supportive care DVT Prophylaxis: On coumadin. At time of d/c, pt had no other acute concerns or complaints. Total Time Total Time Spent Total Time Spent (In Minutes): see attending attestation Discharge Plan Discharge Items Patient Disposition: Home - Self-Care Reason For Visit: SOB, EPISTAXIS Discharge Diagnosis: chf exacerbation Activity: Per Instructions section Non-emergency contact: Primary Care Provider Call non-emergency contact if: you have any medication questions and your symptoms worsen Follow-up/Referrals: Leonel Manriquez MD [Primary Care Provider] - Diet: Low Sodium (2gm) Addtl Attending Provider Instructions: You were admitted for an exacerbation of your CHF. Please follow the below instructions on discharge: -You will continue your home regimen of Lasix 60 mg 2x/day -We added a new low dose medication for your CHF: Lisinopril 2.5 mg daily -For you A-fib, we increased the dose of your Metoprolol from 75 mg 2x/day to 100 mg 2x/day for better heart rate control -If your nose bleeding is very severe and uncontrolled, then please come back into the ER. If it is minor, then apply direct pressure to your outer nostril for 10 min at a time until bleeding subsides -Please follow up with your PCP within one week of discharge -You will be set up with our CHF clinic, they will reach out to you about dates/times Pending Studies at Discharge: No Stand-Alone Forms: My [facility] Hematris Wound Care, Smoking Cessation Medications and DC Order Prescriptions: New metoprolol tartrate 100 mg Tablet 100 mg PO BID 30 Days Qty: 60 RF: 0 lisinopril 2.5 mg Tablet 2.5 mg PO QAM 30 Days Qty: 30 RF: 0 Continued Lantus Solostar U-100 Insulin 100 unit/mL (3 mL) insulin pen 15 unit subcut HS RF: 0 furosemide [Lasix] 40 mg tablet 60 mg PO BID RF: 0 glipizide [Glucotrol] 10 mg tablet 10 mg PO BID RF: 0 gemfibrozil [Lopid] 600 mg tablet 600 mg PO QAM RF: 0 pantoprazole [Protonix] 40 mg tablet,delayed release (DR/EC) 40 mg PO QAM RF: 0 allopurinol [Zyloprim] 300 mg tablet 300 mg PO QAM RF: 0 warfarin [Coumadin] 5 mg Tablet 5 mg PO DAILY RF: 0 aspirin [Ecotrin Low Strength] 81 mg Tablet,Delayed Release (Dr/Ec) 81 mg PO QAM Qty: 30 RF: 0 pregabalin 50 mg capsule 50 mg PO BID RF: 0 codeine-guaifenesin 10-100 mg/5 mL liquid 10 ml PO Q4H PRN (Reason: Cough) RF: 0 Discontinued metoprolol tartrate [Lopressor] 50 mg tablet 75 mg PO BID RF: 0 azithromycin [Zithromax] 500 mg tablet 500 mg PO DAILY 5 Days Qty: 5 RF: 0 methylprednisolone 4 mg tablets,dose pack 0 mg PO .DAILY/UD RF: 0 Discharge Orders: Discharge Order (Routine); Ordered 03/26/19 Ordered By: Simone Barton/Other Patient Handouts: Lisinopril Hydrochlorothiazide Oral tablet Admission Data Admit Date/Time: 03/22/19 23:52 Attending Provider: Yessi Kang Admit Provider: Manisha Ryan Primary Care Provider: Leonel Manriquez Other Providers: Manisha Ryan Other Interventions: Discharge Summary Assessment (RN) Last Done: 03/26/19 11:47 DC Date/Time DO NOT enter until pt leaves facility: 03/26/19 12:25 Supervising Physician Co-Signing Physician Notes Resident Physician Supervision Note: I independently interviewed and examined the patient and verified the martin history and physical, reviewed labs and image studies, discussed the case with the resident Dr. Maldonado and agree with the findings and care plan. Resident Activity Tracking Resident Involvement: Resident Care Provided Care Provided: Adult Hospital Medicine
== END 2019-03-26 12:25 | disposition home or self-care (01) | DRG 291 ==
LOC: ED 21:16 → SUATTDRO 23:52 → 2N 23:52

== ENCOUNTER 2019-11-22 19:07 | Inpatient (IN) ==
[2019-11-22] MEDS ORDERED: CEFEPIME 2,000 MG/12.5 ML VIAL IV STA (19:27)
--- NOTE | 2019-11-22 19:45 | XRay Report ---
XR chest 1V portable HISTORY: 74 years-old Male sob, fever acute shortness of breath with fever COMPARISON: Chest radiograph 03/22/2019 TECHNIQUE: Portable AP view of the chest FINDINGS: Cardiac silhouette is enlarged. Mild pulmonary vascular congestion. Prior median sternotomy. Calcifie d plaque of the thoracic aortic arch. No pneumothorax, pleural effusion or overt pulmonary edema. Mil d chronic interstitial coarsening. Degenerative changes of the shoulders and spine. IMPRESSION: Cardiomegaly with pulmonary vascular congestion. ACT 112: Negative or not required by law. The above report was generated using voice recognition software. It may contain grammatical, syntax o r spelling errors. Electronically signed by: José Arrieta M.D. 11/22/2019 7:44 PM
--- NOTE | 2019-11-22 19:47 | Emergency Department Note ---
History of Present Illness General Chief complaint: Lethargic Stated complaint: LETHARGIC, SWELLING IN LEGS Time Seen by Provider: 11/22/19 19:16 Source: patient Mode of arrival: ambulatory Limitations: no limitations History of Present Illness Provider complaint: Fever and weakness This is a 74-year-old male who presents to the ED with a chief complaint of weakness and tiredness and shortness of breath. The patient states that his symptoms have been ongoing for the past couple of days. He is progressively bec oming weaker. He reports that he has a history of congestive heart failure and has been using 4 pillows to sleep at night. The patient has a little cough according to the . He had a little nausea tonight. He did not know that he had a fever but he does have a temperature of 38 here tonight in triage. Denies any vomiting or diarrhea. Denies any abdominal pains or chest pains. Denies any skin infections. The patient does have history of a mechanical aortic valve and is on Coumadin. Home Medications Home Medications Medication Instructions Recorded Confirmed Type allopurinol [Zyloprim] 300 mg PO QAM 01/09/18 11/22/19 History gemfibrozil [Lopid] 600 mg PO QAM 01/09/18 11/22/19 History glipizide [Glucotrol] 10 mg PO BID 01/09/18 11/22/19 History pantoprazole [Protonix] 40 mg PO QAM 01/09/18 11/22/19 History warfarin [Coumadin] 5 mg PO DAILY 01/09/18 11/22/19 History aspirin [Ecotrin Low Strength] 81 mg PO QAM #30 tab 01/14/18 11/22/19 Rx Lantus Solostar U-100 Insulin 15 unit SUBCUT HS 11/12/18 11/22/19 History pregabalin 50 mg PO BID 03/22/19 11/22/19 History metoprolol tartrate 100 mg tablet 100 mg PO BID 05/01/19 11/22/19 History furosemide 40 mg tablet 80 mg PO BID tab 09/04/19 11/22/19 History metolazone 2.5 mg PO QAM 11/22/19 11/22/19 History Allergies Allergy/AdvReac Type Severity Reaction Status Date / Time enoxaparin Allergy Unknown Illness Verified 11/07/19 11:24 adhesive AdvReac Unknown SORES WITH Verified 11/07/19 11:24 "SOME TAPE" oxycodone AdvReac Unknown HALLUCINATI Verified 11/07/19 11:24 ONS Morphine Derivatives Allergy Unknown Uncoded 11/07/19 11:24 Past Med/Surg History Medical History Afib Amputation of left lower extremity below knee Anemia Bronchitis CHF (congestive heart failure) Diabetes GERD (gastroesophageal reflux disease) Gout Hyperlipidemia Hypertension Surgical History History of appendectomy History of cholecystectomy Mechanical heart valve present 1997 S/P AKA (above knee amputation) unilateral Family History Other Family history of diabetes mellitus Social History Smoking Status: Never smoker Second Hand Exposure: No; Hx Alcohol Use: No Hx Substance Use: No Preferred Language: Armenian Communication Ability: Effective Visual Impairment: No Limitations Microwave Supervisor Required: No Beliefs That Will Affect Care: None marital status: Current Living Situation: Spouse Feels Safe at Home: Yes Review of Systems A total of 10 systems reviewed and were otherwise negative Physical Exam Vital Signs Vital Signs - 24 hr 11/22/19 19:10 11/22/19 19:56 11/22/19 20:00 Temperature 38.0 C H Temperature Source Oral Pulse Rate 88 86 84 Pulse Rate from SpO2 Sensor 89 91 H Respiratory Rate 20 25 H 28 H Respiratory Effort / Characteristics Non-Labored Spontaneous Respiratory Depth Normal Blood Pressure 113/70 124/68 123/72 Blood Pressure Mean 84 80 83 Blood Pressure Position Sitting Pulse Oximetry 91 92 94 Oxygen Delivery Method Room Air Room Air Room Air Sepsis Recent Fever Within 48 Hours No Sepsis New/Unexplained Change in Mental Status N/A Sepsis Action Taken by Nursing No Action Required 11/22/19 20:30 Temperature Temperature Source Pulse Rate 84 Pulse Rate from SpO2 Sensor 84 Respiratory Rate 21 Respiratory Effort / Characteristics Respiratory Depth Blood Pressure 140/76 Blood Pressure Mean 98 Blood Pressure Position Pulse Oximetry 94 Oxygen Delivery Method Room Air Sepsis Recent Fever Within 48 Hours Sepsis New/Unexplained Change in Mental Status Sepsis Action Taken by Nursing CONSTITUTIONAL/VITAL SIGNS: Reviewed / noted above. GENERAL: Non-toxic in appearance. INTEGUMENTARY: Warm, dry, and [place]. HEAD: Normocephalic. EYES: without scleral icterus or trauma. ENT/OROPHARYNX: clear and moist. LYMPHADENOPATHY/NECK: Is supple without lymphadenopathy or meningismus. RESPIRATORY: Lungs clear and equal. CARDIOVASCULAR: Regular rate and rhythm. GI/ABDOMEN: Soft and nontender. No organomegaly or pulsatile mass. No rebound or guarding. Normal bowel sounds. EXTREMITIES: Warm and well perfused. Left AKA. BACK: No CVA tenderness. NEUROLOGICAL: Intact without focal deficits. PSYCHIATRIC: normal affect. MUSCULOSKELETAL: Normally developed with good muscle tone. TRIAGE NURSING DOCUMENTATION REVIEWED. Course Administered Medications Discontinued Medications Cefepime HCl (Maxipime) 2,000 mg in 12.5 mls @ 3.125 mls/min IV NOW STA Stop: 11/22/19 19:30 Last Admin: 11/22/19 19:59 Dose: 3.125 mls/min Documented by: [id number] Medical Decision Making Differential Diagnosis Differential includes acute coronary syndrome, myocardial infarction, CVA, TIA, anemia, infection, pneumonia, UTI, pyelonephritis, poor nutrition, dehydration, electrolyte disturbance,hypoglycemia. Medical Records Attestation: I reviewed the patient's medical records. Home Medications Current Medication List: was personally reviewed by me Laboratory Data Attestation: I reviewed the patient's lab results. Result diagrams: 11/22/19 19:44 11/22/19 19:44 Lab Results 11/22/19 11/22/19 11/22/19 Range/Units 19:44 19:44 19:44 WBC 19.91 H (4.8-10.8) K/uL RBC 3.65 L (4.7-6.1) M/uL Hgb 11.4 L (14.0-18.0) g/dL Hct 35.1 L (42-52) % MCV 96.2 (80-100) fL MCH 31.2 (25-34) pg MCHC 32.5 (32-36) g/dL RDW Std Deviation 60.1 H (36.4-46.3) fL RDW Coeff of Jose 17.1 H (11.5-14.5) % Plt Count 529 H (130-400) K/uL MPV 10.8 H (7.4-10.4) fL Immature Gran % (Auto) 1.9 % Neut % (Auto) 76.3 % Lymph % (Auto) 9.2 % [place] % (Auto) 12.3 % Eos % (Auto) 0.1 % Baso % (Auto) 0.2 % Neut # (Auto) 15.20 H (1.4-6.5) K/uL Lymph # (Auto) 1.84 (1.2-3.4) K/uL [place] # (Auto) 2.45 H (0.11-0.59) K/uL Eos # (Auto) 0.01 (0-0.5) K/uL Baso # (Auto) 0.03 (0-0.2) K/uL Immature Gran # (Auto) 0.38 H (0.00-0.02) K/uL Absolute Nucleated RBC 0.03 H (0-0) K/uL Nucleated RBC % (auto) 0.2 % PT 25.7 H (9.0-12.0) Seconds INR 2.6 H (0.9-1.1) Sodium 134 L (136-145) mmol/L Potassium 3.1 L (3.5-5.1) mmol/L Chloride 93 L (98-107) mmol/L Carbon Dioxide 32 (21-32) mmol/L Anion Gap 9.0 (3-11) BUN 58 H (7-18) mg/dl Creatinine 1.96 H (0.6-1.4) mg/dl Est Cr Clr Drug Dosing Not Reportable Est GFR ( Amer) 37.7 Est GFR (Non-Af Amer) 32.5 BUN/Creatinine Ratio 29.8 H (10-20) Glucose 171 H (70-99) mg/dl Lactate (0.4-2.0) mmol/L Calcium 9.2 (8.5-10.1) mg/dl Total Bilirubin 3.0 H (0.2-1) mg/dl AST 21 (15-37) U/L ALT 15 (12-78) U/L Alkaline Phosphatase 133 H (45-117) U/L Troponin I < 0.015 (0-0.045) ng/ml Total Protein 8.8 H (6.4-8.2) gm/dl Albumin 2.9 L (3.4-5.0) gm/dl Globulin 5.9 H (2.5-4.0) gm/dl Albumin/Globulin Ratio 0.5 L (0.9-2) Urine Color Urine Appearance (Clear) Urine pH (4.5-7.5) Ur Specific [place] (1.000-1.030) Urine Protein (Negative) Urine Glucose (UA) (Negative) Urine Ketones (Negative) Urine Blood (Negative) Urine Nitrite (Negative) Urine Bilirubin (Negative) Urine Urobilinogen (Negative) Ur Leukocyte Esterase (Negative) Urine WBC (Auto) (0-5) /hpf Urine RBC (Auto) (0-4) /hpf U Hyaline Cast (Auto) (0-5) /lpf U Epithel Cells (Auto) (0-5) /lpf Urine Bacteria (Auto) (Negative) 11/22/19 11/22/19 Range/Units 19:44 20:27 WBC (4.8-10.8) K/uL RBC (4.7-6.1) M/uL Hgb (14.0-18.0) g/dL Hct (42-52) % MCV (80-100) fL MCH (25-34) pg MCHC (32-36) g/dL RDW Std Deviation (36.4-46.3) fL RDW Coeff of Jose (11.5-14.5) % Plt Count (130-400) K/uL MPV (7.4-10.4) fL Immature Gran % (Auto) % Neut % (Auto) % Lymph % (Auto) % [place] % (Auto) % Eos % (Auto) % Baso % (Auto) % Neut # (Auto) (1.4-6.5) K/uL Lymph # (Auto) (1.2-3.4) K/uL [place] # (Auto) (0.11-0.59) K/uL Eos # (Auto) (0-0.5) K/uL Baso # (Auto) (0-0.2) K/uL Immature Gran # (Auto) (0.00-0.02) K/uL Absolute Nucleated RBC (0-0) K/uL Nucleated RBC % (auto) % PT (9.0-12.0) Seconds INR (0.9-1.1) Sodium (136-145) mmol/L Potassium (3.5-5.1) mmol/L Chloride (98-107) mmol/L Carbon Dioxide (21-32) mmol/L Anion Gap (3-11) BUN (7-18) mg/dl Creatinine (0.6-1.4) mg/dl Est Cr Clr Drug Dosing Est GFR ( Amer) Est GFR (Non-Af Amer) BUN/Creatinine Ratio (10-20) Glucose (70-99) mg/dl Lactate 1.2 (0.4-2.0) mmol/L Calcium (8.5-10.1) mg/dl Total Bilirubin (0.2-1) mg/dl AST (15-37) U/L ALT (12-78) U/L Alkaline Phosphatase (45-117) U/L Troponin I (0-0.045) ng/ml Total Protein (6.4-8.2) gm/dl Albumin (3.4-5.0) gm/dl Globulin (2.5-4.0) gm/dl Albumin/Globulin Ratio (0.9-2) Urine Color Yellow Urine Appearance Cloudy A (Clear) Urine pH 7.5 (4.5-7.5) Ur Specific [place] 1.008 (1.000-1.030) Urine Protein Negative (Negative) Urine Glucose (UA) Negative (Negative) Urine Ketones Negative (Negative) Urine Blood Negative (Negative) Urine Nitrite Positive A (Negative) Urine Bilirubin Negative (Negative) Urine Urobilinogen Negative (Negative) Ur Leukocyte Esterase 3+ H (Negative) Urine WBC (Auto) >30 H (0-5) /hpf Urine RBC (Auto) 0-4 (0-4) /hpf U Hyaline Cast (Auto) 1-5 (0-5) /lpf U Epithel Cells (Auto) 0-5 (0-5) /lpf Urine Bacteria (Auto) 1+ H (Negative) Imaging Data Radiologist's Impression: XR chest 1V portable HISTORY: 74 years-old Male sob, fever acute shortness of breath with fever COMPARISON: Chest radiograph 03/22/2019 TECHNIQUE: Portable AP view of the chest FINDINGS: Cardiac silhouette is enlarged. Mild pulmonary vascular congestion. Prior median sternotomy. Calcified plaque of the thoracic aortic arch. No pneumothorax, pleu ral effusion or overt pulmonary edema. Mild chronic interstitial coarsening. Degenerative changes of the shoulders and spine. IMPRESSION: Cardiomegaly with pulmonary vascular congestion. A CT scan of the abdomen pelvis read by stat rad reveals status post cholecystectomy. No biliary dilatation. Hepatosplenomegaly. Perinephric stranding around the kidneys favored related to age. Mild fat stranding around the bladder. Correlate with UA as cystitis can have this appearance. Unremarkable GI tract. Few fat-containing ventral hernias. (Ashish Valdivia MD) An ultrasound of the right upper quadrant was performed. There is mild hepatomegaly. Status post cholecystectomy. No biliary dilatation. Unremarkable right kidney and no free fluid. ECG Data Attestation: I personally reviewed and interpreted this ECG as follows: Indication: + weakness Rate (beats per minute): 82 Rhythm: + atrial fibrillation ECG ST segments: no ST elevation ECG Findings: no PVCs Change: no significant change (March 22, 2019) MDM Narrative The patient presents with a chief complaint of generalized weakness as well as some shortness of breath. He is noted to have a fever here of 38. Pulse ox was 91 to 94% on room air. The patient has clear lung sounds. No obvious skin infection. He has a left AKA. Abdomen is soft and nontender. Heart sounds reveal mechanical valve without other audible abnormality. His chest x-ray today shows findings suggestive of cardiomegaly and pulmonary vascular congestion. Clinically his lungs are clear he does not have any clear findings to suggest pulmonary edema. EKG shows a chronic atrial fibrillation. The patient's CBC reveals an elevated white blood cell count. His chemistry panel reveals some chronic renal insufficiency. Potassium was 3.1. His urine appears infected. CT scan of the abdomen pelvis read by stat read did not reveal any acute intra-abdominal process. He did have some perinephric fat stranding ar ound the kidneys. This could be related to a pyelonephritis. They felt that it might be more age-related. He has some mild fat stranding around the bladder which is likely related to his cystitis. He has had a cholecystectomy in the past. The patient was given IV cefepime. He will be seen by the hospitalist for further inpatient evaluation and care. The patient does have an elevated bilirubin. This appears to be somewhat chronic in nature. He does have history of cholecystectomy. Impression & Plan Urinary tract infection, Weakness Discharge Plan Visit Data Chief Complaint: Lethargic Stated Complaint: LETHARGIC, SWELLING IN LEGS ED Provider: Haile Ellis Discharge Problem: Urinary tract infection, Weakness Patient Disposition: Being Evaluated by Hospitalist Forms Stand Alone Forms: [facility], Virtual Emergency Department, Important Visit Information Prescriptions Prescriptions: No Action furosemide [Lasix] 40 mg tablet 80 mg PO BID RF: 0 metoprolol tartrate 100 mg tablet 100 mg PO BID RF: 0 Lantus Solostar U-100 Insulin 100 unit/mL (3 mL) insulin pen 15 unit subcut HS RF: 0 glipizide [Glucotrol] 10 mg tablet 10 mg PO BID RF: 0 gemfibrozil [Lopid] 600 mg tablet 600 mg PO QAM RF: 0 pantoprazole [Protonix] 40 mg tablet,delayed release (DR/EC) 40 mg PO QAM RF: 0 allopurinol [Zyloprim] 300 mg tablet 300 mg PO QAM RF: 0 warfarin [Coumadin] 5 mg Tablet 5 mg PO DAILY RF: 0 aspirin [Ecotrin Low Strength] 81 mg Tablet,Delayed Release (Dr/Ec) 81 mg PO QAM Qty: 30 RF: 0 pregabalin 50 mg capsule 50 mg PO BID RF: 0 metolazone 2.5 mg tablet 2.5 mg PO QAM RF: 0 Referrals Referrals: Leonel Manriquez MD [Primary Care Provider] - Discharge Problem: Urinary tract infection Qualifiers: Urinary tract infection type: acute cystitis Hematuria presence: with hematuria Qualified Code(s): N30.01 - Acute cystitis with hematuria
[2019-11-22 19:53] LABS: Basophils # (auto) 0.03 K/uL (0-0.2); Basophils % (auto) 0.2 %; Eosinophils # (auto) 0.01 K/uL (0-0.5); Eosinophils % (auto) 0.1 %; Hematocrit (blood only) 35.1 % (42-52); Hemoglobin 11.4 g/dL (14.0-18.0); Immature Granulocytes # (auto) 0.38 K/uL (0.00-0.02); Immature Granulocytes % (auto) 1.9 %; Lymphocytes # (auto) 1.84 K/uL (1.2-3.4); Lymphocytes % (auto) 9.2 %; Mean Corpuscular Hemoglobin 31.2 pg (25-34); Mean Corpuscular Hgb Conc 32.5 g/dL (32-36); Mean Corpuscular Volume 96.2 fL (80-100); Mean Platelet Volume 10.8 fL (7.4-10.4); Monocytes # (auto) 2.45 K/uL (0.11-0.59); Monocytes % (auto) 12.3 %; Neutrophils % (auto) 76.3 %; Nucleated RBC # (auto) 0.03 K/uL (0-0); Nucleated RBC % (auto) 0.2 %; Platelet Count 529 K/uL (130-400); RDW Coefficient of Variation 17.1 % (11.5-14.5); RDW Standard Deviation 60.1 fL (36.4-46.3); Red Blood Count 3.65 M/uL (4.7-6.1); White Blood Count 19.91 K/uL (4.8-10.8)
[2019-11-22 20:03] LABS: INR 2.6 (0.9-1.1); Prothrombin Time 25.7 Seconds (9.0-12.0)
[2019-11-22 20:10] LABS: Alanine Aminotransferase 15 U/L (12-78); Albumin Level 2.9 gm/dl (3.4-5.0); Aspartate Aminotransferase 21 U/L (15-37); BUN Creatinine Ratio 29.8 (10-20); Blood Urea Nitrogen 58 mg/dl (7-18); Calcium 9.2 mg/dl (8.5-10.1); Carbon Dioxide 32 mmol/L (21-32); Chloride 93 mmol/L (98-107); Est GFR (African American) 37.7; Est GFR (Non-African American) 32.5; Glucose 171 mg/dl (70-99); Potassium 3.1 mmol/L (3.5-5.1); Sodium 134 mmol/L (136-145)
[2019-11-22 20:15] LABS: Albumin Globulin Ratio 0.5 (0.9-2); Alkaline Phosphatase 133 U/L (45-117); Globulin 5.9 gm/dl (2.5-4.0); Total Protein 8.8 gm/dl (6.4-8.2); Troponin I < 0.015 ng/ml (0-0.045)
[2019-11-22 20:49] LABS: Appearance Urine Cloudy (Clear); Bacteria Urine Automated 1+ (Negative); Bilirubin Urine Negative (Negative); Blood Urine Negative (Negative); Color Urine Yellow; Epithelial Cell Urine Auto 0-5 /lpf (0-5); Glucose Urine UA Negative (Negative); Ketones Urine Negative (Negative); Leukocyte Esterase Urine 3+ (Negative); Nitrite Urine Positive (Negative); Protein Urine Negative (Negative); RBC Urine Automated 0-4 /hpf (0-4); Specific Gravity Urine 1.008 (1.000-1.030); Urobilinogen Urine Negative (Negative); WBC Urine Automated >30 /hpf (0-5); pH Urine 7.5 (4.5-7.5)
--- NOTE | 2019-11-22 23:02 | History & Physical Report ---
Date of Service November 22, 2019 Assessment & Plan (1) Urinary tract infection: Follow urine culture and sensitivity We will await full interpretation by radiology of CT, as there is suggestion of fat stranding around bilateral kidneys and bladder. Continue cefepime 1 g IV every 8 hours. NSS at 80 mils per hour x1 L Zofran 4 mg IV every 6 hours as needed Present on Admission?: Yes (2) Weakness: Weakness and lethargy likely secondary to early sepsis/metabolic encephalopathy. He has been having difficulty transferring from his wheelchair to bed and elsewhere. May require PT/OT assessment prior to discharge Present on Admission?: Yes (3) Chronic diastolic congestive heart failure: Hypertension/atrial fibrillation/chronic diastolic CHF- Continue aspirin, metoprolol tartrate and warfarin Hold metolazone. Resume furosemide in the a.m. Present on Admission?: Yes (4) Hyperlipidemia: Continue gemfibrozil Present on Admission?: Yes (5) Hypertension: See above Present on Admission?: Yes (6) Diabetes: Hold glipizide. Reduce Lantus from 15 to 10 units subcu at bedtime Placed on Accu-Cheks AC and at bedtime with NovoLog coverage per scale Present on Admission?: Yes (7) GERD (gastroesophageal reflux disease): Continue pantoprazole 40 mg daily Present on Admission?: Yes History of Present Illness Chief Complaint: The patient presents to the emergency department due to family concerns regarding lethargy, generalized weakness, fatigue, shortness of breath and difficulty urinating over the past few days. Primary Care Provider: Leonel Manriquez MD The patient is a 74-year-old male with a past medical history including chronic diastolic CHF, hyperlipidemia, diabetes mellitus, hypertension, anemia, gout, GERD, bronchitis, peripheral neuropathy, LINO, COPD, left AKA, epistaxis and mechanical valve presents. He presents with the above symptoms as noted. Allergies Allergy/AdvReac Type Severity Reaction Status Date / Time enoxaparin Allergy Unknown Illness Verified 11/07/19 11:24 adhesive AdvReac Unknown SORES WITH Verified 11/07/19 11:24 "SOME TAPE" oxycodone AdvReac Unknown HALLUCINATI Verified 11/07/19 11:24 ONS Morphine Derivatives Allergy Unknown Uncoded 11/07/19 11:24 Home Medications Home Medications Medication Instructions Recorded Confirmed Type allopurinol [Zyloprim] 300 mg PO QAM 10/07/18 08/19/20 History gemfibrozil [Lopid] 600 mg PO QAM 01/09/18 11/22/19 History glipizide [Glucotrol] 10 mg PO BID 01/09/18 11/22/19 History pantoprazole [Protonix] 40 mg PO QAM 01/09/18 11/22/19 History warfarin [Coumadin] 5 mg PO DAILY 01/09/18 11/22/19 History aspirin [Ecotrin Low Strength] 81 mg PO QAM #30 tab 01/14/18 11/22/19 Rx Lantus Solostar U-100 Insulin 15 unit SUBCUT HS 11/12/18 11/22/19 History pregabalin 50 mg PO BID 03/22/19 11/22/19 History metoprolol tartrate 100 mg tablet 100 mg PO BID 05/01/19 11/22/19 History furosemide 40 mg tablet 80 mg PO BID tab 09/04/19 11/22/19 History metolazone 2.5 mg PO QAM 11/22/19 11/22/19 History Past Med/Surg History Medical History Afib Amputation of left lower extremity below knee Anemia Bronchitis CHF (congestive heart failure) Diabetes GERD (gastroesophageal reflux disease) Gout Hyperlipidemia Hypertension Surgical History History of appendectomy History of cholecystectomy Mechanical heart valve present 1997 S/P AKA (above knee amputation) unilateral Family History Other Family history of diabetes mellitus Social History Smoking Status: Never smoker Second Hand Exposure: No; Hx Alcohol Use: No Hx Substance Use: No Preferred Language: Croatian Communication Ability: Effective Visual Impairment: No Limitations Collection Systems Foreman Required: No Beliefs That Will Affect Care: None marital status: Current Living Situation: Spouse Other Information That Helps Us Care for You: No Feels Safe at Home: Yes Safety Concerns: Feels Safe At This Time Review of Systems Review of Systems: The patient denies chest pain, palpitations, cough, sore throat, fevers, chills, sweats, nausea, vomiting, diarrhea , constipation, abdominal pain, blood in urine or stool, urinary frequency or urgency, lightheadedness, dizziness, headache, memory loss, loss of consciousness, rash, abnormal bruising or bleeding, imbalance, focal weakness, numbness or tingling in arms or legs, generalized arthralgias or myalgias, back or neck pain, or night sweats. The review of systems is otherwise negative other than for that already noted above, and at least 10 systems have been reviewed. Physical Exam Physical Exam: The patient is awake, alert and oriented 3 but slow to respond, and atraumatic, lying in bed and in no acute distress. HEENT--PERRL, EOMI, mucous membranes and oropharynx dry. Neck--supple. No JVD. No bruits. Thyroid normal, trachea midline, no adenop athy. Heart--normal S1 and S2. No murmurs, rubs or gallops. Lungs--clear bilaterally, no respiratory distress, no accessory muscle use. Abdomen--normal bowel sounds and soft. Nontender. Nondistended. Obese. Extremities--no cyanosis or clubbing. Right lower extremity with 1+ pretibial pitting edema. Left AKA Dermatologic--normal skin turgor, normal color, no abnormal lymph nodes, no rash. Neurologic--cranial nerves II through XII grossly intact. Rheumatologic--normal range of motion. Psychiatric--mildly lethargic Results & Data Results & Data ([facility]) Vital Signs (Past 12 Hours) Vital Signs Temp Pulse Resp BP Pulse Ox 11/22/19 22:30 88 17 131/79 94 11/22/19 22:00 98.6 F 89 21 125/68 93 11/22/19 21:39 88 17 125/76 96 11/22/19 20:30 84 21 140/76 94 11/22/19 20:00 84 28 H 123/72 94 11/22/19 19:56 86 25 H 124/68 92 11/22/19 19:10 100.4 F H 88 20 113/70 91 Laboratory Results Laboratory Results WBC 19.91 K/uL (4.8-10.8) H 11/22/19 19:44 RBC 3.65 M/uL (4.7-6.1) L 11/22/19 19:44 Hgb 11.4 g/dL (14.0-18.0) L 11/22/19 19:44 Hct 35.1 % (42-52) L 11/22/19 19:44 MCV 96.2 fL (80-100) 11/22/19 19:44 MCH 31.2 pg (25-34) 11/22/19 19:44 MCHC 32.5 g/dL (32-36) 11/22/19 19:44 RDW Std Deviation 60.1 fL (36.4-46.3) H 11/22/19 19:44 RDW Coeff of Jose 17.1 % (11.5-14.5) H 11/22/19 19:44 Plt Count 529 K/uL (130-400) H 11/22/19 19:44 MPV 10.8 fL (7.4-10.4) H 11/22/19 19:44 Immature Gran % (Auto) 1.9 % 11/22/19 19:44 Neut % (Auto) 76.3 % 11/22/19 19:44 Lymph % (Auto) 9.2 % 11/22/19 19:44 [place] % (Auto) 12.3 % 11/22/19 19:44 Eos % (Auto) 0.1 % 11/22/19 19:44 Baso % (Auto) 0.2 % 11/22/19 19:44 Neut # (Auto) 15.20 K/uL (1.4-6.5) H 11/22/19 19:44 Lymph # (Auto) 1.84 K/uL (1.2-3.4) 11/22/19 19:44 [place] # (Auto) 2.45 K/uL (0.11-0.59) H 11/22/19 19:44 Eos # (Auto) 0.01 K/uL (0-0.5) 11/22/19 19:44 Baso # (Auto) 0.03 K/uL (0-0.2) 11/22/19 19:44 Immature Gran # (Auto) 0.38 K/uL (0.00-0.02) H 11/22/19 19:44 Absolute Nucleated RBC 0.03 K/uL (0-0) H 11/22/19 19:44 Nucleated RBC % (auto) 0.2 % 11/22/19 19:44 PT 25.7 Seconds (9.0-12.0) H 11/22/19 19:44 INR 2.6 (0.9-1.1) H 11/22/19 19:44 Sodium 134 mmol/L (136-145) L 11/22/19 19:44 Potassium 3.1 mmol/L (3.5-5.1) L 11/22/19 19:44 Chloride 93 mmol/L (98-107) L 11/22/19 19:44 Carbon Dioxide 32 mmol/L (21-32) 11/22/19 19:44 Anion Gap 9.0 (3-11) 11/22/19 19:44 BUN 58 mg/dl (7-18) H 11/22/19 19:44 Creatinine 1.96 mg/dl (0.6-1.4) H 11/22/19 19:44 Est Cr Clr Drug Dosing Not Reportable 11/22/19 19:44 Est GFR ( Amer) 37.7 11/22/19 19:44 Est GFR (Non-Af Amer) 32.5 11/22/19 19:44 BUN/Creatinine Ratio 29.8 (10-20) H 11/22/19 19:44 Glucose 171 mg/dl (70-99) H 11/22/19 19:44 Lactate 1.2 mmol/L (0.4-2.0) 11/22/19 19:44 Calcium 9.2 mg/dl (8.5-10.1) 11/22/19 19:44 Total Bilirubin 3.0 mg/dl (0.2-1) H 11/22/19 19:44 AST 21 U/L (15-37) 11/22/19 19:44 ALT 15 U/L (12-78) 11/22/19 19:44 Alkaline Phosphatase 133 U/L (45-117) H 11/22/19 19:44 Troponin I < 0.015 ng/ml (0-0.045) 11/22/19 19:44 Total Protein 8.8 gm/dl (6.4-8.2) H 11/22/19 19:44 Albumin 2.9 gm/dl (3.4-5.0) L 11/22/19 19:44 Globulin 5.9 gm/dl (2.5-4.0) H 11/22/19 19:44 Albumin/Globulin Ratio 0.5 (0.9-2) L 11/22/19 19:44 Urine Color Yellow 11/22/19 20:27 Urine Appearance Cloudy (Clear) A 11/22/19 20:27 Urine pH 7.5 (4.5-7.5) 11/22/19 20:27 Ur Specific [place] 1.008 (1.000-1.030) 11/22/19 20:27 Urine Protein Negative (Negative) 11/22/19 20:27 Urine Glucose (UA) Negative (Negative) 11/22/19 20:27 Urine Ketones Negative (Negative) 11/22/19 20:27 Urine Blood Negative (Negative) 11/22/19 20:27 Urine Nitrite Positive (Negative) A 11/22/19 20:27 Urine Bilirubin Negative (Negative) 11/22/19 20:27 Urine Urobilinogen Negative (Negative) 11/22/19 20:27 Ur Leukocyte Esterase 3+ (Negative) H 11/22/19 20:27 Urine WBC (Auto) >30 /hpf (0-5) H 11/22/19 20:27 Urine RBC (Auto) 0-4 /hpf (0-4) 11/22/19 20:27 U Hyaline Cast (Auto) 1-5 /lpf (0-5) 11/22/19 20:27 U Epithel Cells (Auto) 0-5 /lpf (0-5) 11/22/19 20:27 Urine Bacteria (Auto) 1+ (Negative) H 11/22/19 20:27 Diagnostic Findings [place], [place] [phone] XRay Report Patient: JUAN SIU IIIAdmit Date: 11/22/19 MR#: [id number]: [id number] [facility] Acct ID:[id number]: Date: 1945[facility] [place] [address] Age: 74Location: ED Sex: M Room/Bed: Att Phy:Diagnosis: LETHARGIC, SWELLING IN LEGS Laxmi Phy: Leonel Ames M.D.Service Date: 11/22/19 [facility] Phy:Interpreting Phy: Salty Arrieta Admit Phy: Ordering Phy: Haile Ellis D.O. cc: ~ XR chest 1V portable HISTORY: 74 years-old Male sob, fever acute shortness of breath with fever COMPARISON: Chest radiograph 03/22/2019 TECHNIQUE: Portable AP view of the chest FINDINGS: Cardiac silhouette is enlarged. Mild pulmonary vascular congestion. Prior median sternotomy. Calcified plaque of the thoracic aortic arch. No pneumothorax, pleural effusion or overt pulmonary edema. Mild chronic interstitial coarsening. Degenerative changes of the shoulders and spine. IMPRESSION: Cardiomegaly with pulmonary vascular congestion. ACT 112: Negative or not required by law. The above report was generated using voice recognition software. It may contain grammatical, syntax or spelling errors. Electronically signed by: José Arrieta M.D. 11/22/2019 7:44 PM Dictated: 11/22/191942 Transcribed: 11/22/191942 [facility] Patient: JUAN SIU III (Male) : 43 Status: ER Date: 11/22/19 21:05 Room #: History: elevated bilirubin fever Slices: 604 Priors: Tech: George Uribe @ [phone] Exams: CT ABDOMEN & PELVIS Without Contrast Contrast: Accession Numbers: [id number] Preliminary Findings Only See Final Report For Complete Findings CT ABDOMEN & PELVIS Without Contrast: Status post cholecystectomy. No biliary dilatation. Hepatosplenomegaly. Perinephric fat stranding around the kidneys favored related to age. Mild fat stranding around the bladder. Correlate with UA as cystitis can have this appearance. Unremarkable GI tract. Few fat-containing ventral hernias. Radiologist: Ashish Valdivia MD Study ready at 21:08 and initial results transmitted at 21:14 *This report constitutes a preliminary interpretation only. Non-acute findings felt to be unrelated to the clinical presentation may not be discussed in this report. The study will be interpreted and a final report will be generated by the local Radiologist the following shift. To reach the hospital radiology department call [phone]. If a discrepancy is found between the preliminary and final interpretations of this study, please notify us via our Client Portal at [email or web address].You can also fax this report with a description of the discrepancy, or include the final report, to our daytime fax number [phone].If faxing, please indicate the severity of discrepancy using one of the following categories: [ ] 1 - Agree/Informational [ ] 2 - Unlikely to Affect Management [ ] 3 - Possible Eventual Change of Management [ ] 4 - Probable Immediate Change of Management For all other patient related information, please fax us at [phone]. [id number] [facility] Patient: JUAN SIU III (Male) : 43 Status: ER Date: 11/22/19 21:20 Room #: History: Elevated bilirubin Slices: 32 Priors: Tech: Regi Arrington @ [phone] Exams: US GALLBLADDER Contrast: Accession Numbers: [id number] Preliminary Findings Only See Final Report For Complete Findings US GALLBLADDER: Mild hepatomegaly. Status post cholecystectomy. No biliary dilatation. Unremarkable right kidney. No free fluid. Radiologist: Ashish Valdivia MD Study ready at 21:21 and initial results transmitted at 21:32 *This report constitutes a preliminary interpretation only. Non-acute findings felt to be unrelated to the clinical presentation may not be discussed in this report. The study will be interpreted and a final report will be generated by the local Radiologist the following shift. To reach the hospital radiology department call [phone]. If a discrepancy is found between the preliminary and final interpretations of this study, please notify us via our Client Portal at [email or web address].You can also fax this report with a description of the discrepancy, or include the final report, to our daytime fax number [phone].If faxing, please indicate the severity of discrepancy using one of the following categories: [ ] 1 - Agree/Informational [ ] 2 - Unlikely to Affect Management [ ] 3 - Possible Eventual Change of Management [ ] 4 - Probable Immediate Change of Management For all other patient related information, please fax us at [phone]. [id number] Code Status & VTE Plan Code Status Full code VTE Prophylaxis Plan VTE Prophylaxis will be ordered: Yes PG Care Time/CCT Total # of Minutes Spent Total Time Spent with Patient: Total time spent is greater than 50% in coordination of care (as documented) at patient's floor/unit and/or counseling patient: Coding Level of Care Code 23722 Initial Inpt Care Lvl 3 Diagnoses Urinary tract infection N30.01 Hematuria presence: with hematuria Urinary tract infection type: acute cystitis Weakness R53.1 Chronic diastolic congestive heart failure I50.32 Hyperlipidemia E78.5 Hyperlipidemia type: unspecified Hypertension I10 Hypertension type: essential hypertension Diabetes E11.42; Z79.4 Diabetes mellitus type: type 2 Diabetes mellitus skilled nursing insulin use: with exterminator helper use Diabetes mellitus complication status: with neurologic complications Diabetes mellitus complication detail: with polyneuropathy GERD (gastroesophageal reflux disease) K21.9 Esophagitis presence: esophagitis presence not specified (1) Urinary tract infection Hematuria presence: with hematuria Urinary tract infection type: acute cystitis Qualified Code(s): N30.01 - Acute cystitis with hematuria (2) Hyperlipidemia Hyperlipidemia type: unspecified Qualified Code(s): E78.5 - Hyperlipidemia, unspecified (3) Diabetes Diabetes mellitus type: type 2 Diabetes mellitus skilled nursing insulin use: with exterminator helper use Diabetes mellitus complication status: with neurologic comp lications Diabetes mellitus complication detail: with polyneuropathy Qualified Code(s): E11.42 - Type 2 diabetes mellitus with diabetic polyneuropathy; Z79.4 - snf (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 insulin (4) Hypertension Hypertension type: essential hypertension Qualified Code(s): I10 - Essential (primary) hypertension (5) GERD (gastroesophageal reflux disease) Esophagitis presence: esophagitis presence not specified Qualified Code(s): K21.9 - Gastro-esophageal reflux disease without esophagitis
[2019-11-22] MEDS ORDERED: GLUCOSE 40% GEL 15 GM TUBE PO PRN (23:31)
[2019-11-22] MEDS ORDERED: ONDANSETRON INJ 2 MG/ML 2 ML VIAL IV PRN (23:31)
[2019-11-22] MEDS ORDERED: ACETAMINOPHEN 325 MG TAB PO PRN (23:31)
[2019-11-22] MEDS ORDERED: CARBOHYDRATES FOR HYPOGLYCEMIA PO PRN (23:31)
[2019-11-22] MEDS ORDERED: ALUMINUM/MAGNESIUM SUSP 30 ML UDC PO PRN (23:31)
[2019-11-22] MEDS ORDERED: GLUCOSE 10 TABS/TUBE PO PRN (23:31)
[2019-11-22] MEDS ORDERED: MAGNESIUM HYDROXIDE SUSP 30 ML UDC PO PRN (23:31)
[2019-11-22] MEDS ORDERED: SODIUM CHLORIDE 0.9% 1000ML 1,000 ML IV SCH (23:31)
[2019-11-22] MEDS ORDERED: GLUCAGON FOR INJ 1 MG VIAL SQ PRN (23:31)
[2019-11-22] MEDS ORDERED: DEXTROSE 50% 50 ML SYRINGE IV PRN (23:31)
[2019-11-23] MEDS: METOPROLOL TARTRATE 100 MG TAB PO SCH ×3 (00:25→20:20)
[2019-11-23] MEDS: PREGABALIN 50 MG CAP PO SCH ×3 (00:30→20:21)
[2019-11-23] MEDS: CEFEPIME 1,000 MG in SYRINGE 0 ML IV SCH ×3 (04:11→20:19)
--- NOTE | 2019-11-23 06:50 | CT Scan Report ---
CT OF THE ABDOMEN AND PELVIS WITHOUT CONTRAST CLINICAL HISTORY: Fever. Elevated bilirubin. COMPARISON STUDY: CT of the chest and abdomen May 28, 2006. TECHNIQUE: Axial images of the abdomen and pelvis were obtained without IV contrast. Images were revi ewed in the axial, sagittal, and coronal planes. Automated exposure control was utilized for the mikaela dy. A dose lowering technique was utilized adhering to the principles of ALARA. FINDINGS: Lung bases are unremarkable. No pneumatosis, free air or portal venous gas is present. Eval uation of the abdomen and pelvis is suboptimal on this unenhanced examination. Hepatosplenomegaly is noted. Splenomegaly is unchanged since CT of May 28, 2006. Hepatomegaly has mildly increased. Th ere is no biliary ductal dilatation status post cholecystectomy. There is no pancreatic ductal dilata tion. Water attenuation lesion within the upper pole of the left kidney is suboptimally assessed on t his unenhanced exam but favors a cyst. Calcifications within the right renal sinus is probably vascul ar. There is mild bilateral perinephric infiltration. There is no hydronephrosis. There are no ureter al calculi. Mild bladder wall thickening with adjacent infiltration is noted. There is no evidence fo r a bowel obstruction. No ascites is present. There is no lymphadenopathy. No suspicious osseous lesi ons are present. Several fat-containing ventral hernias are present. IMPRESSION: 1. Bladder wall thickening with adjacent infiltration which raises the possibility of cystitis. This could be correlated with urinalysis. 2. Mild hepatosplenomegaly. No biliary ductal dilatation status post cholecystectomy. 3. No bowel obstruction. 4. Several fat-containing ventral hernias. ACT 112: Negative or not required by law. Electronically signed by: Yao Clement M.D. 11/23/2019 6:49 AM
--- NOTE | 2019-11-23 07:06 | Ultrasound Report ---
US gallbladder CLINICAL HISTORY: fever, elevated bilirubin COMPARISON STUDY: CT scan dated 11/22/2019 FINDINGS: The pancreas appeared normal as visualized. The distal body and tail were poorly demonstrat ed. No focal hepatic masses are visualized. There is no ductal dilatation. The common bile duct measured 4 mm. The gallbladder is surgically absent. There is no right-sided hydronephrosis. IMPRESSION: 1. Surgically absent gallbladder. 2. No evidence of ductal dilatation. ACT 112: Negative or not required by law. Electronically signed by: Gary Gilliam M.D. 11/23/2019 7:05 AM
[2019-11-23] MEDS: POTASSIUM CHLORIDE / WTR 10 MEQ/100 ML PLCT IV SCH ×3 (07:12→09:09)
[2019-11-23] MEDS: POTASSIUM CHLORIDE 20 MEQ TABCR PO SCH ×3 (07:15→13:57)
[2019-11-23] MEDS: gemfibroziL 600 MG TAB PO SCH (07:17)
[2019-11-23] MEDS: MAGNESIUM OXIDE 400 MG TAB PO SCH ×2 (07:17→20:19)
[2019-11-23] MEDS: ASPIRIN 81 MG ECTAB PO SCH (07:17)
[2019-11-23] MEDS: allopurinoL 300 MG TAB PO SCH (07:18)
[2019-11-23] MEDS: PANTOprazole 40 MG TAB PO SCH (07:19)
[2019-11-23 07:28] LABS: Estimated Average Glucose 123 mg/dl; Hemoglobin A1C 5.9 % (4.5-5.6)
[2019-11-23] MEDS: INSULIN ASPART 100 UNITS/ML 3 ML PEN SC SCH ×4 (07:56→20:23)
[2019-11-23] MEDS ORDERED: metOLazone 2.5 MG TABLET PO SCH (09:00)
[2019-11-23] MEDS ORDERED: FUROSEMIDE 80 MG TAB PO SCH (09:00)
--- NOTE | 2019-11-23 12:27 | Hospitalist Progress Note ---
Date of Service November 23, 2019 Assessment & Plan (1) Urinary tract infection: E. coli isolated in the urine. Blood cultures negative to date. Sensitivities pending. Continue cefepime, day 1. Continue IV fluids. (2) Weakness: Appears to be due to UTI. Will treat infectious process. Continue IV fluids. OT and PT assessments. May require PT/OT assessment prior to discharge (3) Chronic diastolic congestive heart failure: Hypertension/atrial fibrillation/chronic diastolic CHF- Continue aspirin, metoprolol tartrate and warfarin Hold metolazone. Resume furosemide in the a.m. (4) Hyperlipidemia: Continue gemfibrozil (5) Hypertension: Continue current medical management (6) Diabetes: Hold glipizide. Reduced Lantus from 15 to 10 units on admission Placed on Accu-Cheks AC and at bedtime with NovoLog coverage per scale (7) GERD (gastroesophageal reflux disease): Continue pantoprazole 40 mg daily (8) Hypokalemia: Oral and IV replacement. Serial labs Admission and Anticipated Discharge Date Admission Date: November 22, 2019 Subjective Alert and oriented. Generalized weakness is essentially unchanged. Urine culture growing E. coli. Cefepime day 1. Blood cultures negative to date. INR 2.6 today. Will follow. Potassium replacement underway for hypokalemia. Metolazone and glipizide are on hold. Review of Systems Review of Systems: Constitutional-no fever or chills ENT-no blurred vision, no double vision, no epistaxis, no sore throat Respiratory-no cough, no wheezing, no shortness of breath Cardiac-no palpitations, no chest pain, no syncope GI-no nausea, vomiting, diarrhea, melena, hematochezia -no urinary retention, no urinary incontinence, no hematuria. Dysuria Musculoskeletal-no joint pain, no muscle tenderness Skin-no bruising, no rashes, no pruritus Neuro- generalized weakness. No paresthesia, no weakness Psych-no depression, no anxiety Physical Exam Physical Exam: General-alert and oriented x3, no fevers, no chills HEENT-head atraumatic and normocephalic, TMs intact bilaterally, pupils equal and reactive to light, extraocular muscles intact Neck-no lymphadenopathy or thyromegaly, trachea midline Chest-clear to auscultation percussion. No rales wheezing or rhonchi Cardiac-regular rate and rhythm, normal S1 and S2, no murmurs Abdomen-normal bowel sounds, nontender, no hepatosplenomegaly Extremities-no cyanosis, clubbing, or edema Neuro-cranial nerves II through XII intact. Generalized weakness. No focal deficits Psych-normal affect, normal mood Results & Data Results & Data ([facility]) Vital Signs (Past 12 Hours) Vital Signs Temp Pulse Pulse Resp BP BP Pulse Ox 11/23/19 11:48 37.3 C 86 18 104/68 92 11/23/19 07:57 36.5 C 86 20 124/68 90 11/23/19 04:14 36.8 C 84 16 112/72 93 11/23/19 01:24 88 Laboratory Results 11/22/19 19:44 11/22/19 19:44 PG Care Time/CCT Total # of Minutes Spent Total Time Spent with Patient: Total time spent is greater than 50% in coordination of care (as documented) at patient's floor/unit and/or counseling patient: Coding Level of Care Code 77829 Subseq Hosp Care Lvl 3 Diagnoses Urinary tract infection N30.01 Hematuria presence: with hematuria Urinary tract infection type: acute cystitis Weakness R53.1 Chronic diastolic congestive heart failure I50.32 Hyperlipidemia E78.5 Hyperlipidemia type: unspecified Hypertension I10 Hypertension type: essential hypertension Diabetes E11.42; Z79.4 Diabetes mellitus type: type 2 Diabetes mellitus fci insulin use: with fci use Diabetes mellitus complication status: with neurologic complications Diabetes mellitus complication detail: with polyneuropathy GERD (gastroesophageal reflux disease) K21.9 Esophagitis presence: esophagitis presence not specified Hypokalemia E87.6 (1) Urinary tract infection Hematuria presence: with hematuria Urinary tract infection type: acute cystitis Qualified Code(s): N30.01 - Acute cystitis with hematuria (2) Hyperlipidemia Hyperlipidemia type: unspecified Qualified Code(s): E78.5 - Hyperlipidemia, u nspecified (3) Hypertension Hypertension type: essential hypertension Qualified Code(s): I10 - Essential (primary) hypertension (4) Diabetes Diabetes mellitus type: type 2 Diabetes mellitus fci insulin use: with exterminator termite use Diabetes mellitus complication status: with neurologic complicat ions Diabetes mellitus complication detail: with polyneuropathy Qualified Code(s): E11.42 - Type 2 diabetes mellitus with diabetic polyneuropathy; Z79.4 - assistant terminal manager (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 insulin (5) GERD (gastroesophageal reflux disease) Esophagitis presence: esophagitis presence not specified Qualified Code(s): K21.9 - Gastro-esophageal reflux disease without esophagitis
[2019-11-23] MEDS: WARFARIN SOD 5 MG TAB PO SCH (15:37)
[2019-11-23] MEDS: SODIUM CHLORIDE 0.9% 1000ML 1,000 ML IV SCH (15:41)
[2019-11-23] MEDS ORDERED: Nursing to Pharmacy Communication SCH (15:45)
[2019-11-23] MEDS: INSULIN GLARGINE SOLOSTAR 100 UNITS/ML 3 ML PEN SQ SCH (20:23)
[2019-11-23] MEDS ORDERED: PATIENT'S HEIGHT AND/OR WEIGHT NEEDED SCH (23:45)
[2019-11-24] MEDS: CEFEPIME 1,000 MG in SYRINGE 0 ML IV SCH (03:35)
[2019-11-24] MEDS: SODIUM CHLORIDE 0.9% 1000ML 1,000 ML IV SCH ×2 (03:35→17:09)
--- NOTE | 2019-11-24 05:18 | Electrocardiogram Report ---
Test Reason : Blood Pressure : / mmHG Vent. Rate : 082 BPM Atrial Rate : 085 BPM P-R Int : 000 ms QRS Dur : 108 ms QT Int : 342 ms P-R-T Axes : 000 -06 164 degrees QTc Int : 399 ms Atrial fibrillation Abnormal ECG When compared with ECG of 23-MAR-2019 07:13, Vent. rate has decreased BY 45 BPM Aberrant conduction is no longer Present Confirmed by Urbano Morales ([id number]) on 11/24/2019 5:17:56 AM Referred By: REFERRED SELF Confirmed By:Urbano Morales
[2019-11-24 07:31] LABS: Basophils # (auto) 0.04 K/uL (0-0.2); Basophils % (auto) 0.3 %; Eosinophils # (auto) 0.09 K/uL (0-0.5); Eosinophils % (auto) 0.6 %; Hematocrit (blood only) 34.3 % (42-52); Hemoglobin 10.9 g/dL (14.0-18.0); Immature Granulocytes # (auto) 0.59 K/uL (0.00-0.02); Lymphocytes # (auto) 2.17 K/uL (1.2-3.4); Lymphocytes % (auto) 14.6 %; Mean Corpuscular Hgb Conc 31.8 g/dL (32-36); Mean Corpuscular Volume 97.4 fL (80-100); Monocytes # (auto) 1.29 K/uL (0.11-0.59); Monocytes % (auto) 8.7 %; Neutrophils # (auto) 10.66 K/uL (1.4-6.5); Neutrophils % (auto) 71.8 %; Platelet Count 526 K/uL (130-400); RDW Coefficient of Variation 16.9 % (11.5-14.5); RDW Standard Deviation 60.6 fL (36.4-46.3); Red Blood Count 3.52 M/uL (4.7-6.1); White Blood Count 14.84 K/uL (4.8-10.8)
[2019-11-24 08:10] LABS: Est GFR (African American) 39.1
[2019-11-24 08:11] LABS: BUN Creatinine Ratio 36.4 (10-20); Calcium 9.4 mg/dl (8.5-10.1); Creatinine Clr Calc Pharmacy 46.7 ml/min; Est GFR (Non-African American) 33.7
[2019-11-24] MEDS: METOPROLOL TARTRATE 100 MG TAB PO SCH ×2 (08:11→20:10)
[2019-11-24] MEDS: gemfibroziL 600 MG TAB PO SCH (08:12)
[2019-11-24] MEDS: allopurinoL 300 MG TAB PO SCH (08:12)
[2019-11-24] MEDS: MAGNESIUM OXIDE 400 MG TAB PO SCH ×2 (08:12→20:10)
[2019-11-24] MEDS: PANTOprazole 40 MG TAB PO SCH (08:12)
[2019-11-24] MEDS: ASPIRIN 81 MG ECTAB PO SCH (08:12)
[2019-11-24] MEDS: INSULIN ASPART 100 UNITS/ML 3 ML PEN SC SCH ×4 (08:13→20:34)
[2019-11-24] MEDS: PREGABALIN 50 MG CAP PO SCH ×2 (08:15→20:10)
[2019-11-24 09:32] LABS: INR 2.2 (0.9-1.1); Prothrombin Time 22.3 Seconds (9.0-12.0)
--- NOTE | 2019-11-24 11:31 | Hospitalist Progress Note ---
Date of Service November 24, 2019 Assessment & Plan (1) Urinary tract infection: E. coli isolated in the urine. Blood cultures remain negative to date. E. coli is pansensitive. Cefepime switched over to Ancef. Antibiotic day 2. Taper IV fluids. (2) Weakness: Appears to be due to UTI. Improving. OT and PT assessments. (3) Chronic diastolic congestive heart failure: Hypertension/atrial fibrillation/chronic diastolic CHF- Continue aspirin, metoprolol tartrate and warfarin Hold metolazone and Lasix for now (4) Hyperlipidemia: Continue gemfibrozil (5) Hypertension: Continue current medical management (6) Diabetes: Hold glipizide. Reduced Lantus from 15 to 10 units on admission Placed on Accu-Cheks AC and at bedtime with NovoLog coverage per scale (7) GERD (gastroesophageal reflux disease): Continue pantoprazole 40 mg daily (8) Hypokalemia: Oral and IV replacement. Serial labs Admission and Anticipated Discharge Date Admission Date: November 22, 2019 Subjective Feeling better. E. coli in the urine is pansensitive. Antibiotics de-escalated to IV Ancef. Will taper IV fluids. Continue physical therapy. INR is 2.2. Potassium 2.7 which will be replaced orally and parenterally. Review of Systems Review of Systems: Constitutional-no fever or chills ENT-no blurred vision, no double vision, no epistaxis, no sore throat Respiratory-no cough, no wheezing, no shortness of breath Cardiac-no palpitations, no chest pain, no syncope GI-no nausea, vomiting, diarrhea, melena, hematochezia -no urinary retention, no urinary incontinence, no dysuria, no hematuria Musculoskeletal-no joint pain, no muscle tenderness Skin-no bruising, no rashes, no pruritus Neuro- no paresthesia. Generalized weakness Psych-no depression, no anxiety Physical Exam Physical Exam: General-alert and oriented x3, no fevers, no chills HEENT-head atraumatic and normocephalic, TMs intact bilaterally, pupils equal and reactive to light, extraocular muscles intact Neck-no lymphadenopathy or thyromegaly, trachea midline Chest-clear to auscultation percussion. No rales wheezing or rhonchi Cardiac-irregular rhythm, controlled rate , normal S1 and S2 Abdomen-normal bowel sounds, nontender, no hepatosplenomegaly Extremities-no cyanosis, clubbing, or edema Neuro-cranial nerves II through XII intact, motor and sensory function within normal limits, no focal deficits Psych-normal affect, normal mood Results & Data Results & Data ([facility]) Vital Signs (Past 12 Hours) Vital Signs Temp Pulse Resp BP BP Pulse Ox 11/24/19 10:56 36.4 C L 889 H 20 121/74 94 11/24/19 07:09 36.7 C 90 16 113/72 91 11/24/19 03:31 36.7 C 85 16 115/81 93 11/23/19 23:28 37 C 85 16 108/68 92 Laboratory Results 11/24/19 07:02 11/24/19 09:05 PG Care Time/CCT Total # of Minutes Spent Total Time Spent with Patient: Total time spent is greater than 50% in coordi nation of care (as documented) at patient's floor/unit and/or counseling patient: Coding Level of Care Code 23542 Subseq Hosp Care Lvl 3 Diagnoses Urinary tract infection N30.01 Hematuria presence: with hematuria Urinary tract infection type: acute cystitis Weakness R53.1 Chronic diastolic congestive heart failure I50.32 Hyperlipidemia E78.5 Hyperlipidemia type: unspecified Hypertension I10 Hypertension type: essential hypertension Diabetes E11.42; Z79.4 Diabetes mellitus type: type 2 Diabetes mellitus medical terminologist insulin use: with mcfp use Diabetes mellitus complication status: with neurologic complications Diabetes mellitus complication detail: with polyneuropathy GERD (gastroesophageal reflux disease) K21.9 Esophagitis presence: esophagitis presence not specified Hypokalemia E87.6 (1) Urinary tract infection Hematuria presence: with hematuria Urinary tract infection type: acute cystitis Qualified Code(s): N30.01 - Acute cystitis with hematuria (2) Hyperlipidemia Hyperlipidemia type: unspecified Qualified Code(s): E78.5 - Hyperlipidemia, unspecified (3) Hypertension Hypertension type: essential hypertension Qualified Code(s): I10 - Essential (primary) hypertension (4) Diabetes Diabetes mellitus type: type 2 Diabetes mellitus medical terminologist insulin use: with medical terminologist use Diabetes mellitus complication status: with neurologic complications Diabetes mellitus complication detail: with polyneuropathy Qualified Code(s): E11.42 - Type 2 diabetes mellitus with diabetic polyneuropathy; 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
[2019-11-24] MEDS: CEFAZOLIN 1000MG 1,000 MG/7.5 ML SYR IV SCH ×2 (11:52→20:10)
[2019-11-24] MEDS: POTASSIUM CHLORIDE / WTR 10 MEQ/100 ML PLCT IV SCH ×3 (11:52→14:36)
[2019-11-24] MEDS: POTASSIUM CHLORIDE 20 MEQ TABCR PO SCH ×2 (13:06→20:11)
[2019-11-24] MEDS: WARFARIN SOD 5 MG TAB PO SCH (17:07)
[2019-11-24] MEDS: INSULIN GLARGINE SOLOSTAR 100 UNITS/ML 3 ML PEN SQ SCH (20:32)
[2019-11-25] MEDS: CEFAZOLIN 1000MG 1,000 MG/7.5 ML SYR IV SCH ×3 (03:59→21:02)
[2019-11-25 06:44] LABS: Basophils # (auto) 0.02 K/uL (0-0.2); Basophils % (auto) 0.1 %; Eosinophils # (auto) 0.09 K/uL (0-0.5); Eosinophils % (auto) 0.7 %; Hematocrit (blood only) 33.4 % (42-52); Hemoglobin 10.7 g/dL (14.0-18.0); Immature Granulocytes # (auto) 0.46 K/uL (0.00-0.02); Immature Granulocytes % (auto) 3.4 %; Lymphocytes # (auto) 1.74 K/uL (1.2-3.4); Mean Corpuscular Hemoglobin 30.7 pg (25-34); Mean Corpuscular Volume 95.7 fL (80-100); Mean Platelet Volume 10.7 fL (7.4-10.4); Monocytes # (auto) 1.59 K/uL (0.11-0.59); Monocytes % (auto) 11.9 %; Neutrophils # (auto) 9.45 K/uL (1.4-6.5); Neutrophils % (auto) 70.9 %; Platelet Count 483 K/uL (130-400); RDW Coefficient of Variation 16.7 % (11.5-14.5); RDW Standard Deviation 58.5 fL (36.4-46.3); Red Blood Count 3.49 M/uL (4.7-6.1); White Blood Count 13.35 K/uL (4.8-10.8)
[2019-11-25 06:52] LABS: INR 2.4 (0.9-1.1)
[2019-11-25 07:10] LABS: BUN Creatinine Ratio 36.7 (10-20); Calcium 9.6 mg/dl (8.5-10.1); Creatinine Clr Calc Pharmacy 51.7 ml/min; Est GFR (African American) 44.1
[2019-11-25] MEDS: INSULIN ASPART 100 UNITS/ML 3 ML PEN SC SCH ×4 (08:13→20:17)
[2019-11-25] MEDS: allopurinoL 300 MG TAB PO SCH (08:14)
[2019-11-25] MEDS: MAGNESIUM OXIDE 400 MG TAB PO SCH ×2 (08:14→21:04)
[2019-11-25] MEDS: ASPIRIN 81 MG ECTAB PO SCH (08:15)
[2019-11-25] MEDS: gemfibroziL 600 MG TAB PO SCH (08:15)
[2019-11-25] MEDS: PANTOprazole 40 MG TAB PO SCH (08:15)
[2019-11-25] MEDS: METOPROLOL TARTRATE 100 MG TAB PO SCH ×2 (08:15→21:02)
[2019-11-25] MEDS: POTASSIUM CHLORIDE 20 MEQ TABCR PO SCH ×3 (08:15→21:02)
[2019-11-25] MEDS: PREGABALIN 50 MG CAP PO SCH ×2 (08:19→21:06)
[2019-11-25] MEDS: SODIUM CHLORIDE 0.9% 1000ML 1,000 ML IV SCH (10:09)
[2019-11-25] MEDS: POTASSIUM CHLORIDE / WTR 10 MEQ/100 ML PLCT IV SCH ×2 (10:10→11:22)
[2019-11-25] MEDS: WARFARIN SOD 5 MG TAB PO SCH (16:55)
--- NOTE | 2019-11-25 19:37 | Hospitalist Progress Note ---
Date of Service November 25, 2019 Assessment & Plan (1) Urinary tract infection: Urine culture with E. coli Antibiotics de-escalated to cefazolin (Ancef) 11/24/2019 Today is day 3 of antibiotics Patient is urinating without difficulty No hematuria Leukocytosis is improving T-max of 36.8 Continue to monitor (2) Weakness: Most likely secondary to urinary tract infection and obesity Physical therapy has been consulted Await their evaluation No neurological deficiencies identified (3) Chronic diastolic congestive heart failure: Furosemide and metolazone held Most recent echocardiogram 01/23/2019 Preserved left ventricular ejection fraction of 45 to 50%. 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 Trace mitral regurgitation Cumulative fluid status is -778 cc for this admission We will reevaluate restarting furosemide and metolazone tomorrow (4) Hyperlipidemia: Continue gemfibrozil (5) Hypertension: Systolic blood pressure typically in the 1 teens to 120s Continue with antihypertensives We will reevaluate starting of diuretics tomorrow (6) Diabetes: Continue Lantus Continue sliding scale with NovoLog Hemoglobin A1c on 11/22/2019 was 5.9 (7) GERD (gastroesophageal reflux disease): Continue pantoprazole daily (8) Hypokalemia: Potassium was 3.0 this morning Furosemide is been held Continue with K riders Magnesium was 2.2 Follow serial lab (9) DVT prophylaxis: Patient chronically on Coumadin INR today is 2.4 Admission and Anticipated Discharge Date Admission Date: November 22, 2019 Subjective Patient seen at bedside with present. Continues to have weakness but overall improving. Tolerating antibiotics. Appetite is improving. Patient denies fever, chills, sweats, rigors. No acute complaints. Review of Systems Review of Systems: All systems reviewed & are unremarkable except as noted in HPI & below Physical Exam Physical Exam: GENERAL : No acute distress. Patient drowsy but able to be awoken with verbal and tactile stimuli EYES: No icterus, gaze conjugate. Pupils equal round and reactive to light NOSE: No evidence of epistaxis MOUTH: No lesions or candidiasis. NECK: Supple. No stridor LUNGS: Fine crackles at the bilateral bases. No bronchospasm. No rhonchi HEART: Regular, rate controlled ABDOMEN: Soft, NT, ND, BS Present EXTREMITIES: No right LE edema, pedal pulse intact on right. Left lower extremity amputation. NEURO: A&OX3 Results & Data Results & Data ([facility]) Vital Signs (Past 12 Hours) Vital Signs Temp Pulse Pulse Resp BP BP Pulse Ox 11/25/19 19:12 36.5 C 93 H 18 123/68 96 11/25/19 15:14 36.6 C 71 18 113/73 94 11/25/19 14:52 79 11/25/19 12:28 36.5 C 84 20 137/84 95 11/25/19 07:28 89 11/25/19 07:25 36.8 C 83 20 129/77 93 Laboratory Results 11/25/19 06:25 11/25/19 06:25 INR 2.4 (0.9-1.1) H 11/25/19 06:25 Diagnostic Findings No diagnostic imaging since 11/22/2019 PG Care Time/CCT Total # of Minutes Spent Total Time Spent with Patient: Total time spent is greater than 50% in coordination of care (as documented) at patient's floor/unit and/or counseling patient: 30 minutes including discussion with patient's Coding Level of Care Code 15125 Subseq Hosp Care Lvl 2 Diagnoses Urinary tract infection N30.01 Hematuria presence: with hematuria Urinary tract infection type: acute cystitis Weakness R53.1 Chronic diastolic congestive heart failure I50.32 Hyperlipidemia E78.5 Hyperlipidemia type: unspecified Hypertension I10 Hypertension type: essential hypertension Diabetes E11.42; Z79.4 Diabetes mellitus type: type 2 Diabetes mellitus correction insulin use: with correction use Diabetes mellitus complication status: with neurologic complications Diabetes mellitus complication detail: with polyneuropathy GERD (gastroesophageal reflux disease) K21.9 Esophagitis presence: esophagitis presence not specified Hypokalemia E87.6 DVT prophylaxis Z29.9 Time Spent (min) 30 (1) Urinary tract infection Hematuria presence: with hematuria Urinary tract infection type: acute cystitis Qualified Code(s): N30.01 - Acute cystitis with hematuria (2) Hyperlipidemia Hyperlipidemia type: unspecified Qualified Code(s): E78.5 - Hyperlipidemia, unspecified (3) Hypertension Hypertension type: essential hypertension Qualified Code(s): I10 - Essential (primary) hypertension (4) Diabetes Diabetes mellitus type: type 2 Diabetes mellitus correction insulin use: with correction use Diabetes mellitus complication status: with neurologic complications Diabetes mellitus complication detail: with polyneuropathy Qualified Code(s): E11.42 - Type 2 diabetes mellitus with diabetic polyneuropathy; Z79.4 - group home (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 insulin (5) GERD (gastroesophageal reflux disease) Esophagitis presence: esophagitis presence not specified Qualified Code(s): K21.9 - Gastro-esophageal reflux disease without esophagitis
[2019-11-25] MEDS: INSULIN GLARGINE SOLOSTAR 100 UNITS/ML 3 ML PEN SQ SCH (21:02)
[2019-11-26] MEDS: CEFAZOLIN 1000MG 1,000 MG/7.5 ML SYR IV SCH ×3 (04:00→21:06)
[2019-11-26] MEDS: SODIUM CHLORIDE 0.9% 1000ML 1,000 ML IV SCH (05:47)
[2019-11-26 07:06] LABS: Basophils # (auto) 0.04 K/uL (0-0.2); Basophils % (auto) 0.3 %; Eosinophils # (auto) 0.13 K/uL (0-0.5); Hematocrit (blood only) 34.7 % (42-52); Hemoglobin 10.8 g/dL (14.0-18.0); Immature Granulocytes # (auto) 0.59 K/uL (0.00-0.02); Immature Granulocytes % (auto) 4.7 %; Lymphocytes # (auto) 1.71 K/uL (1.2-3.4); Lymphocytes % (auto) 13.7 %; Mean Corpuscular Hemoglobin 30.7 pg (25-34); Mean Corpuscular Hgb Conc 31.1 g/dL (32-36); Mean Corpuscular Volume 98.6 fL (80-100); Monocytes # (auto) 1.58 K/uL (0.11-0.59); Monocytes % (auto) 12.7 %; Neutrophils # (auto) 8.44 K/uL (1.4-6.5); Neutrophils % (auto) 67.6 %; Platelet Count 516 K/uL (130-400); RDW Standard Deviation 60.7 fL (36.4-46.3); Red Blood Count 3.52 M/uL (4.7-6.1); White Blood Count 12.49 K/uL (4.8-10.8)
[2019-11-26 07:14] LABS: INR 2.9 (0.9-1.1); Prothrombin Time 28.7 Seconds (9.0-12.0)
[2019-11-26 07:24] LABS: Calcium 8.9 mg/dl (8.5-10.1); Creatinine Clr Calc Pharmacy 59.4 ml/min; Est GFR (African American) 52.5; Est GFR (Non-African American) 45.3; Potassium 3.4 mmol/L (3.5-5.1)
[2019-11-26] MEDS: MAGNESIUM OXIDE 400 MG TAB PO SCH ×2 (08:12→21:03)
[2019-11-26] MEDS: ASPIRIN 81 MG ECTAB PO SCH (08:12)
[2019-11-26] MEDS: INSULIN ASPART 100 UNITS/ML 3 ML PEN SC SCH ×4 (08:12→20:44)
[2019-11-26] MEDS: POTASSIUM CHLORIDE 20 MEQ TABCR PO SCH ×3 (08:13→21:02)
[2019-11-26] MEDS: METOPROLOL TARTRATE 100 MG TAB PO SCH ×2 (08:13→21:02)
[2019-11-26] MEDS: gemfibroziL 600 MG TAB PO SCH (08:13)
[2019-11-26] MEDS: PANTOprazole 40 MG TAB PO SCH (08:13)
[2019-11-26] MEDS: allopurinoL 300 MG TAB PO SCH (08:13)
[2019-11-26] MEDS: PREGABALIN 50 MG CAP PO SCH ×2 (08:14→21:06)
[2019-11-26] MEDS: WARFARIN SOD 5 MG TAB PO SCH (16:07)
[2019-11-26] MEDS ORDERED: NEOMYCIN/POLYMYX/BACITR OINT 15 GM TUBE EXT PRN (16:30)
--- NOTE | 2019-11-26 16:33 | Pulmonology Progress Note ---
Date of Service November 26, 2019 Assessment & Plan (1) Urinary tract infection: Urine culture with E. coli Antibiotics de-escalated to cefazolin (Ancef) 11/24/2019 Today is day 4 of antibiotics Patient is urinating without difficulty but does have some difficulty with getting urine in the urinal No hematuria Leukocytosis is improving Afebrile Continue to monitor Hematuria presence: with hematuria Urinary tract infection type: acute cystitis Qualified Code(s): N30.01 - Acute cystitis with hematuria (2) Weakness: Most likely secondary to urinary tract infection and obesity Physical therapy has been consulted and recommends home therapy once discharged Occupational Therapy consulted Nursing reported a max assist of 3 nurses today to get patient off of bedside commode Continue inpatient physical therapy and Occupational Therapy until discharge No neurological deficiencies identified (3) Chronic diastolic congestive heart failure: Furosemide and metolazone held We will get repeat chest x-ray tomorrow morning Most recent echocardiogram 01/23/2019 Preserved left ventricular ejection fraction of 45 to 50%. 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 Today the patient is +77 8 mL. We will restart furosemide today Patient is on Lasix 80 mg p.o. twice daily at home. We will start with 40 mg daily and follow (4) Hyperlipidemia: Continue gemfibrozil Hyperlipidemia type: unspecified Qualified Code(s): E78.5 - H yperlipidemia, unspecified (5) Hypertension: Systolic blood pressure typically in the 1 teens to 120s Continue with antihypertensives Restart furosemide 40 mg daily today. 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 (7) GERD (gastroesophageal reflux disease): Continue pantoprazole daily Esophagitis presence: esophagitis presence not specified Qualified Code(s): K21.9 - Gastro-esophageal reflux disease without esophagitis (8) Hypokalemia: Potassium was 3.0 this morning Furosemide being restarted today Continue with K riders Magnesium was 2.2 Follow serial lab (9) DVT prophylaxis: Patient chronically on Coumadin INR today is 2.9 (10) Pressure ulcer: Pressure ulcer identified on right posterior thigh and buttocks reports that patient frequently has pressure ulcers from sitting in his power chair at home They have tried various padding including gel pads, foam egg crates, improvised padding at home to no avail WOCN nurse consulted to evaluate Admission and Anticipated Discharge Date Admission Date: November 22, 2019 Subjective staff to get him off the bedside commode back to bed Patient continues to be extremely weak. He had difficulty rolling over in the bed. He also has a new pressure ulcer on his right buttock and thigh. This afternoon the patient also developed a small arthur/laceration to his scrotum after using the urinal. I did discuss this with his Jenny whom I called at home. She stated that he does this all the time at home and this may not be new. The patient's RN will submit an incident report and the urinal will be presented to the quality department for review. Regarding review of systems, patient has no fever or chills. His shortness of breath seems to be improved. He has no abdominal pain, nausea, vomiting. He does continue to have some difficulty with urination and missed the urinal twice over the nighttime hours and had a mass on the floor. The patient also was extremely weak and it took 3 staff to get the patient off the bedside commode. 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 The patient has no chest pain or tightness and has no other acute complaints. Review of Systems Review of Systems: All systems reviewed & are unremarkable except as noted in HPI & below Physical Exam Physical Exam: GENERAL : No acute distress EYES: No icterus, gaze conjugate NOSE: No evidence of epistaxis MOUTH: No lesions or candidiasis NECK: Supple LUNGS: Bibasilar fine crackles HEART: Regular, rate controlled. Cardiac murmur appreciated ABDOMEN: Soft, NT, ND, BS Present EXTREMITIES: No LE edema, pedal pulses intact. Posterior right thigh and inferior buttocks has what appears to be a pressure ulcer. This is dressed with some evidence of seeping through the dressing NEURO: A&OX3 Results & Data Results & Data ([facility]) Vital Signs (Past 12 Hours) Vital Signs Temp Pulse Resp BP BP Pulse Ox 11/26/19 15:00 36.5 C 86 18 126/81 93 11/26/19 11:19 36.6 C 78 20 132/81 95 11/26/19 08:03 36.4 C L 95 H 20 131/84 93 Laboratory Results 11/26/19 06:44 11/26/19 06:44 Diagnostic Findings No radiographs since 11/22/2019 PG Care Time/CCT Total # of Minutes Spent Total Time Spent with Patient: Total time spent is greater than 50% in coordination of care (as documented) at patient's floor/unit and/or counseling patient: 40 minutes including discussion with the at bedside and 3 visits with the patient Coding Level of Care Code 64660 Subseq Hosp Care Lvl 3 Diagnoses Urinary tract infection N30.01 Hematuria presence: with hematuria Urinary tract infection type: acute cystitis Weakness R53.1 Chronic diastolic congestive heart failure I50.32 Hyperlipidemia E78.5 Hyperlipidemia type: unspecified Hypertension I10 Hypertension type: essential hypertension Diabetes E11.42; Z79.4 Diabetes mellitus type: type 2 Diabetes mellitus halfway insulin use: with halfway use Diabetes mellitus complication status: with neurologic complications Diabetes mellitus complication detail: with polyneuropathy GERD (gastroesophageal reflux disease) K21.9 Esophagitis presence: esophagitis presence not specified Hypokalemia E87.6 DVT prophylaxis Z29.9 Pressure ulcer L89.90 Time Spent (min) 40
[2019-11-26] MEDS: FUROSEMIDE 40 MG in SYRINGE 0 ML IV SCH (17:08)
[2019-11-26] MEDS: POTASSIUM CHLORIDE / WTR 10 MEQ/100 ML PLCT IV SCH ×2 (17:08→18:15)
[2019-11-26] MEDS: INSULIN GLARGINE SOLOSTAR 100 UNITS/ML 3 ML PEN SQ SCH (20:43)
--- NOTE | 2019-11-26 21:42 | Communication Note ---
Date of Service: November 26, 2019 Patient with frequent manipulation of genitalia for frequent urination from Lasix treatment. Now with superficial scrotal abrasion that patient continues to manipulate. He is frequently saturated with urine from in ability to adequately aim stream. Nursing recommends Fox cath placement to prevent further tissue destruction from self manipulation. Orders placed. Resident Activity Tracking Resident Involvement: Resident Care Provided Care Provided: Adult Hospital Medicine
[2019-11-27] MEDS: SODIUM CHLORIDE 0.9% 1000ML 1,000 ML IV SCH (02:14)
[2019-11-27] MEDS: CEFAZOLIN 1000MG 1,000 MG/7.5 ML SYR IV SCH ×2 (04:37→12:00)
--- NOTE | 2019-11-27 08:04 | XRay Report ---
SINGLE VIEW CHEST CLINICAL HISTORY: Dyspnea. FINDINGS: An AP, portable, upright chest radiograph is compared to study dated 11/22/2019. The examina tion is degraded by portable technique and patient rotation. The patient is status post midline vargas otomy. The heart is enlarged and there is atherosclerotic calcification of the thoracic aorta. There is pulmonary vascular congestion. Bibasilar atelectasis is noted. No airspace consolidation or large pleural effusion is identified. No pneumothorax is seen. The skeletal structures are osteopenic. The bony thorax is grossly intact. Degenerative change is noted in the left shoulder in the thoracic spin e. IMPRESSION: Cardiomegaly with evidence of mild congestive failure. Electronically signed by: Ho Denny M.D. 11/27/2019 8:02 AM
[2019-11-27] MEDS: INSULIN ASPART 100 UNITS/ML 3 ML PEN SC SCH ×3 (09:19→17:10)
[2019-11-27] MEDS: PANTOprazole 40 MG TAB PO SCH (09:20)
[2019-11-27] MEDS: METOPROLOL TARTRATE 100 MG TAB PO SCH (09:20)
[2019-11-27] MEDS: ASPIRIN 81 MG ECTAB PO SCH (09:20)
[2019-11-27] MEDS: MAGNESIUM OXIDE 400 MG TAB PO SCH (09:20)
[2019-11-27] MEDS: FUROSEMIDE 40 MG in SYRINGE 0 ML IV SCH (09:21)
[2019-11-27] MEDS: POTASSIUM CHLORIDE 20 MEQ TABCR PO SCH ×2 (09:21→13:09)
[2019-11-27] MEDS: gemfibroziL 600 MG TAB PO SCH (09:21)
[2019-11-27] MEDS: allopurinoL 300 MG TAB PO SCH (09:21)
[2019-11-27] MEDS: PREGABALIN 50 MG CAP PO SCH (09:25)
--- NOTE | 2019-11-27 15:36 | Discharge Summary ---
Date of Service November 27, 2019 Admission HPI Per Admitting Provider The patient is a 74-year-old male with a past medical history including chronic diastolic CHF, hyperlipidemia, diabetes mellitus, hypertension, anemia, gout, GERD, bronchitis, peripheral neuropathy, LINO, COPD, left AKA, epistaxis and mechanical valve presents. He presents with the above symptoms as noted. Admission Exam Per Admitting Provider Physical Exam: The patient is awake, alert and oriented 3 but slow to respond, and atraumatic, lying in bed and in no acute distress. HEENT--PERRL, EOMI, mucous membranes and oropharynx dry. Neck--supple. No JVD. No bruits. Thyroid normal, trachea midline, no adenopathy. Heart--normal S1 and S2. No murmurs, rubs or gallops. Lungs--clear bilaterally, no respiratory distress, no accessory muscle use. Abdomen--normal bowel sounds and soft. Nontender. Nondistended. Obese. Extremities--no cyanosis or clubbing. Right lower extremity with 1+ pretibial pitting edema. Left AKA Dermatologic--normal skin turgor, normal color, no abnormal lymph nodes, no rash. Neurologic--cranial nerves II through XII grossly intact. Rheumatologic--normal range of motion. Psychiatric--mildly lethargic Principal Diagnosis Urinary tract infection with E. coli Discharge Exam GENERAL : No acute distress EYES: No icterus, gaze conjugate NOSE: No evidence of epistaxis MOUTH: No lesions or candidiasis NECK: Supple LUNGS: CTA B/L, no wheezes, rales or rhonchi HEART: Regular, rate controlled. Mechanical murmur appreciated. ABDOMEN: Soft, NT, ND, BS Present EXTREMITIES: No LE edema, pedal pulse intact on the right. Patient with left [id number] amputation. No cyanosis or discoloration of stump. No appreciation of breakdown of tissue at stump. NEURO: A&OX3 Discharge Data Allergies Allergy/AdvReac Type Severity Reaction Status Date / Time enoxaparin Allergy Unknown Illness Verified 11/07/19 11:24 adhesive AdvReac Unknown SORES WITH Verified 11/07/19 11:24 "SOME TAPE" oxycodone AdvReac Unknown HALLUCINATI Verified 11/07/19 11:24 ONS Morphine Derivatives Allergy Unknown Uncoded 11/07/19 11:24 Consultations 11/22/19 21:20 ED Decision to Admit Stat 11/22/19 23:31 Consult Case Management - Discharge Planning Routine Ordered Studies 11/22/19 20:28 CT abd pelvis wo con Urgent CT OF THE ABDOMEN AND PELVIS WITHOUT CONTRAST CLINICAL HISTORY: Fever. Elevated bilirubin. COMPARISON STUDY: CT of the chest and abdomen May 28, 2006. TECHNIQUE: Axial images of the abdomen and pelvis were obtained without IV contrast. Images were reviewed in the axial, sagittal, and coronal planes. Automated exposure control was utilized for the study. A dose lowering technique was utilized adhering to the principles of ALARA. FINDINGS: Lung bases are unremarkable. No pneumatosis, free air or portal venous gas is present. Evaluation of the abdomen and pelvis is suboptimal on this unenhanced examination. Hepatosplenomegaly is noted. Splenomegaly is unchanged since CT of May 28, 2006. Hepatomegaly has mildly increased. There is no biliary ductal dilatation status post cholecystectomy. There is no pancreatic ductal dilatation. Water attenuation lesion within the upper pole of the left kidney is suboptimally assessed on this unenhanced exam but favors a cyst. Calcifications within the right renal sinus is probably vascular. There is mild bilateral perinephric infiltration. There is no hydronephrosis. There are no ureteral calculi. Mild bladder wall thickening with adjacent infiltration is noted. There is no evidence for a bowel obstruction. No ascites is present. There is no lymphadenopathy. No suspicious osseous lesions are present. Several fat-containing ventral hernias are present. IMPRESSION: 1. Bladder wall thickening with adjacent infiltration which raises the possibility of cystitis. This could be correlated with urinalysis. 2. Mild hepatosplenomegaly. No biliary ductal dilatation status post cholecystectomy. 3. No bowel obstruction. 4. Several fat-containing ventral hernias. Electronically signed by: Yao Clement M.D. 11/23/2019 6:49 AM US gallbladder Urgent US gallbladder CLINICAL HISTORY: fever, elevated bilirubin COMPARISON STUDY: CT scan dated 11/22/2019 FINDINGS: The pancreas appeared normal as visualized. The distal body and tail were poorly demonstrated. No focal hepatic masses are visualized. There is no ductal dilatation. The common bile duct measured 4 mm. The gallbladder is surgically absent. There is no right-sided hydronephrosis. IMPRESSION: 1. Surgically absent gallbladder. 2. No evidence of ductal dilatation. Electronically signed by: Gary Gilliam M.D. 11/23/2019 7:05 AM Hospital Course (1) Urinary tract infection: Urine culture with E. coli Antibiotics de-escalated to cefazolin (Ancef) 11/24/2019 Today is day 5 of antibiotics We will discharge on additional 5 days of ciprofloxacin 500 mg twice daily. This may increase INR. Will hold Coumadin today and tomorrow and then resume normal dosing Patient is urinating without difficulty but does have some difficulty with getting urine in the urinal No hematuria Leukocytosis is improving Afebrile Continue to monitor (2) Weakness: Most likely secondary to urinary tract infection and obesity/deconditioning Occupational Therapy and physical therapy have been consulted and both recommend home therapy once discharged No neurological deficiencies identified (3) Chronic diastolic congestive heart failure: Furosemide and metolazone held Chest x-ray this morning with mild congestive failure. Patient is oxygenating well. Will resume furosemide and metolazone on discharge Most recent echocardiogram 01/23/2019 Preserved left ventricular ejection fraction of 45 to 50%. 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 Trace mitral regurgitation (4) Hyperlipidemia: Continue gemfibrozil (5) Hypertension: Systolic blood pressure typically in the 1 teens to 120s Continue with antihypertensives (6) Diabetes: Continue Lantus Continue sliding scale with NovoLog Hemoglobin A1c on 11/22/2019 was 5.9 Resume home medications on discharge (7) GERD (gastroesophageal reflux disease): Continue pantoprazole daily (8) Hypokalemia: We will start the patient on potassium chloride twice daily on discharge Follow serial labs as an outpatient Most recent magnesium was 2.2 Continue with outpatient management (9) Pressure ulcer: Pressure ulcer identified on right posterior thigh and buttocks reports that patient frequently has pressure ulcers from sitting in his power chair at home They have tried various padding including gel pads, foam egg crates, improvised padding at home to no avail [facility] nurse consulted to evaluate -please refer to her recommendations Also issuing Krys's handout on preventing pressure sores at time of discharge (10) Thrombocytosis: In review past records patient was noted to have normal platelet count as recently as last November. In March 2019 it was noted that the platelet count began to increase. This is been consistently increasing since that time. Most recent platelet count is 516,000. Differential is not consistent with leukemia This may be secondary to antibiotic use or other chronic illness Would recommend follow-up with hematology as an outpatient as coordinated through patient's primary care provider No neurological deficits to indicate concern for stroke and no evidence of claudication or vascular compromise from thrombocytosis. (11) Uremia: Patient does have chronic kidney disease and appears to be at baseline with a creatinine BUN is been noted to be increasing since March 2019 and is currently at 55. Patient has no altered mental status on examination We will continue to follow kidney function closely. May benefit from nephrology outpatient exam. Total Time Total Time Spent Total Time Spent (In Minutes): 40 minutes Total Time Includes: Examination of the Patient, Discharge Planning, Medication Reconciliation, Communication With Other Providers and Other Discharge Plan Discharge Items Patient Disposition: Home - Home Health Services Reason For Visit: SEPSIS DUE TO UTI Discharge Diagnosis: Weakness, sepsis due to UTI Condition on Discharge: Fair Health Concerns: Recurrent pressure ulcers Activity: Resume your previous activity Lifting: Gradually increase as tolerated Bathing: No limitations Bathing Comment: Per recommendations of wound care Sexual Activity: When tolerated Exercise/Sports: Gradually increase as tolerated Driving/Machine Use: No limitations Weightbearing: Full weightbearing Non-emergency contact: Primary Care Provider Call non-emergency contact if: your pain is concerning for you and your temperature is above 101 Follow-up/Referrals: Leonel Manriquez MD [Primary Care Provider] - 12/04/19 11:30 am Diet: Carb Consistent or DM2 and Heart Healthy Addtl Attending Provider Instructions: Follow-up with all outpatient appointments. You are being and started on ciprofloxacin for your urinary tract infection. This may cause an increase in your INR. Please hold Coumadin today and tomorrow and resume normal dose on Wednesday. If you notice any abnormal bleeding, please contact your primary care provider to have your INR checked. Pending Studies at Discharge: No Studies:: Urine Culture Urine Culture Final 11/24/19-1043 Organism 1 Escherichia coli [place] Count >100,000 CFU/ml Stand-Alone Forms: My [facility] Medications and DC Order Prescriptions: New Triple Antibiotic 3.5mg-400 unit- 5,000 unit/gram Ointment 1 applic EXT Q8H PRN (Reason: wound healing) Qty: 15 RF: 0 potassium chloride [Klor-Con M20] 20 mEq Tablet,Er Particles/Crystals 20 meq PO BID Qty: 60 RF: 0 ciprofloxacin HCl 500 mg tablet 500 mg PO Q12H Qty: 10 RF: 0 Continued furosemide [Lasix] 40 mg tablet 80 mg PO BID RF: 0 metoprolol tartrate 100 mg tablet 100 mg PO BID RF: 0 Lantus Solostar U-100 Insulin 100 unit/mL (3 mL) insulin pen 15 unit subcut HS RF: 0 glipizide [Glucotrol] 10 mg tablet 10 mg PO BID RF: 0 gemfibrozil [Lopid] 600 mg tablet 600 mg PO QAM RF: 0 pantoprazole [Protonix] 40 mg tablet,delayed release (DR/EC) 40 mg PO QAM RF: 0 allopurinol [Zyloprim] 300 mg tablet 300 mg PO QAM RF: 0 warfarin [Coumadin] 5 mg Tablet 5 mg PO DAILY RF: 0 aspirin [Ecotrin Low Strength] 81 mg Tablet,Delayed Release (Dr/Ec) 81 mg PO QAM Qty: 30 RF: 0 pregabalin 50 mg capsule 50 mg PO BID RF: 0 metolazone 2.5 mg tablet 2.5 mg PO QAM RF: 0 Discharge Orders: Discharge Order (Routine); Ordered 11/27/19 Ordered By: Ho Barton/Other Patient Handouts: Preventing Pressure Sores Admission Data Admit Date/Time: 11/22/19 23:00 Attending Provider: Shani Blancas Admit Provider: Mejia Antoine Primary Care Provider: Leonel Manriquez Other Providers: Mejia Antoine ; [facility] Other Interventions: Discharge Summary Assessment (RN) Last Done: 11/27/19 16:29 Supervising Physician Co-Signing Physician Notes Pt seen and examined by me. Pt states that his weakness has been more of an issue with not having the same equipment that he has at home. States his son does cabinetry and designed most of his home to outfit pt specifically. He states he feels much better today and would prefer to go home with home services. Denies chest pain or SOB. Tolerating PO without issue. States he is more comfortable with wise in place due to ulceration on penis. Agree with HPI/ROS as noted by PA Hrt: RRR, neg for edema Lungs: CTA, neg respiratory distress Agree with plan as outlined above Wound care for penis ulcer, continue wise Finish cipro x5 more days for UTI Ongoing HHN Coding Level of Care Code D/C Day Management >30 mins Diagnoses Urinary tract infection N30.01 Hematuria presence: with hematuria Urinary tract infection type: acute cystitis Weakness R53.1 Chronic diastolic congestive heart failure I50.32 Hyperlipidemia E78.5 Hyperlipidemia type: unspecified Hypertension I10 Hypertension type: essential hypertension Diabetes E11.42; Z79.4 Diabetes mellitus complication detail: with polyneuropathy Diabetes mellitus complication status: with neurologic complications Diabetes mellitus exterminator insulin use: with nursing home use Diabetes mellitus type: type 2 GERD (gastroesophageal reflux disease) K21.9 Esophagitis presence: esophagitis presence not specified Hypokalemia E87.6 Pressure ulcer L89.90 Thrombocytosis D47.3 Uremia N19
[2019-11-27] MEDS: WARFARIN SOD 5 MG TAB PO SCH (15:52)
== END 2019-11-27 17:42 | disposition home health service (06) | DRG 871 ==
LOC: ED 19:07 → SUATTDRO 23:00 → 2S 23:00

== ENCOUNTER 2020-02-22 14:49 | Inpatient (IN) ==
--- NOTE | 2020-02-22 14:58 | Emergency Department Note ---
Impression & Plan Acute confusion, Acute uremia, Hyperammonemia ED Provider Note NAME: JUAN SIU III AGE: 74 SEX: M : 1945 ARRIVES VIA: Walk-In INFORMANT: Patient, ED PROVIDER(S): Eligio Padilla MD Chief Complaint: Confusion HPI: Patient does present from home with worsening confusion. The patient was recently seen in the outpatient setting by Dr. Hernandez and had recent blood work completed as well as CT of the head. Patient has had some slurred speech for greater than a week. He has had some generalized weakness. Patient did have a fall several weeks ago but not recently. The patient does take Coumadin. The patient did have kidney function completed on February 19 that showed that he had a BUN/creatinine of 94 and 2.4. Patient had a negative noncontrast head CT completed on 02/19 as well. The patient denies any current headache but had taken 2 Tylenol for headache earlier this morning. Patient denies any chest pain shortness of breath nausea or vomiting. The patient has had decreased appetite. The patient is on fluid restriction restriction due to concern fluid in the lungs. Patient denies any abdominal pain. ROS: See HPI for pertinent positives and negatives. A total of 10 systems were reviewed and otherwise negative. Past medical history: See below Surgical history: See below Social history: See below Physical Exam: GENERAL: Wearing glasses and a mask, easily arousable. EYE EXAM: Normal conjunctiva. PERRL, no anisocoria and EOM's grossly intact w/o pain. NECK: Supple, no nuchal rigidity, no adenopathy, non-tender. No signs of meningismus. LUNGS: Clear to auscultation. Normal chest wall mechanics. HEART: NSR, no MRG. ABDOMEN: Abdomen soft, non-tender, normo-active bowel sounds, no masses, no rebound or guarding. BACK: No CVA TTP. SKIN: No rashes and no bruising. UPPER EXTREMITIES: Upper extremities are grossly normal. LOWER EXTREMITIES: Left AKA noted. Moves right lower extremity without issue. NEURO EXAM: Opens eyes to voice, follows basic commands, aware of person and place but not time. Cranial nerves II-XII grossly intact with the exception of slightly slurred speech. Moves all 4 extremities on command w/o issue. Differential diagnoses: Infection, dehydration, metabolic abnormality, hypo/hyperglycemia, electrolyte disturbance, anemia, hypoxia, cardiac sources, intracerebral event, toxicologic, neurologic, as well as other pathologies. Course: Patient was seen and evaluated the bedside. Full history physical exam was performed. EKG: Indication: Weakness A. fib with PVCs, rate of 70, normal QRS duration, normal axis, T wave inversi ons throughout. Imaging Studies: Radiology results as stated below per my review in the radiologist's interpretation: CT SCAN OF THE BRAIN WITHOUT IV CONTRAST CLINICAL HISTORY: Change in mental status. COMPARISON STUDY: CT of the brain dated 02/20/2020. TECHNIQUE: Unenhanced axial CT scan of the brain is performed from the vertex to the skull base. A dose lowering technique was utilized adhering to the principles of ALARA. CT DOSE: 614.27 mGy.cm FINDINGS: Brain parenchyma: There are age-related involutional changes noting mild subcortical and periventricular microangiopathic change. There is no hemorrhage, mass effect, or evidence of acute territorial ischemia by CT criteria. Humphries- white matter differentiation is preserved. No extra-axial fluid collection is seen. Ventricles, sulci, cisterns: Prominent secondary to involutional change. Intracranial vasculature: There is atherosclerotic calcification of the cavernous carotid and vertebral arteries. Calvarium: Unremarkable. Sinuses and mastoids: The visualized paranasal sinuses are clear. The mastoid air cells are well pneumatized. Orbits: The bony orbits are grossly intact. IMPRESSION: There is no hemorrhage, mass effect, or evidence of acute territorial ischemia by CT criteria. ACT 112: Negative or not required by law. Electronically signed by: Ho Denny M.D. 02/22/2020 4:19 PM Dictated: 02/22/207Transcribed: 02/22/20 161 XR chest 1V portable CLINICAL HISTORY: weakness COMPARISON STUDY: Chest radiograph November 27, 2019. FINDINGS: There are median sternotomy wires. Moderate cardiomegaly is noted without evidence for pulmonary edema. No pneumothorax or pleural effusion is noted. Mild elevation of the right hemidiaphragm is noted. Apparent right basilar opacity is similar to prior exams and likely reflects vessels or atelectasis. IMPRESSION: No acute cardiopulmonary findings. No significant change in appearance of the chest. ACT 112: Negative or not required by law. Electronically signed by: Yao Clement M.D. 02/22/2020 3:55 PM Dictated: 02/22/20 1554Transcribed: 02/22/20 1554 Cardiac monitoring: An order was placed for continuous cardiac monitoring. The monitor shows a rate of 71 with sinus rhythm. MDM: Patient does present with worsening weakness and confusion. Blood work is obtained along with repeat CT of the head as the patient is on Coumadin. Olivia ent also did have urinalysis blood and urine cultures was given a small amount of IV fluids chest x-ray EKG and troponin also obtained. Patient has a mild white count of 12 with a hemoglobin of 10. Platelet count is elevated which is chronic. Anemia is also chronic. Patient does have elevated total bicarb with a normal gap. The patient does have an elevated BUN and creatinine of 94 and 3.2. Patient's ammonia is also elevated. Lactulose was ordered. Given the patient's worsening kidney function, uremia confusion and associated hyperammonemia I did speak with the on-call hospitalist and the patient was admitted by Dr. Rebollar. Past Med/Surg History Medical History Afib Amputation of left lower extremity below knee Anemia Bronchitis CHF (congestive heart failure) Diabetes GERD (gastroesophageal reflux disease) Gout Hyperlipidemia Hypertension Thrombocytosis Uremia Surgical History History of appendectomy History of cholecystectomy Mechanical heart valve present 1997 S/P AKA (above knee amputation) unilateral Family History Other Family history of diabetes mellitus Social History Smoking Status: Unknown if ever smoked Second Hand Exposure: No; Hx Alcohol Use: No Hx Substance Use: No Preferred Language: Icelandic Communication Ability: Effective Visual Impairment: No Limitations Motor 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 Required: No Beliefs That Will Affect Care: None marital status: Current Living Situation: Family Feels Safe at Home: Yes Assistive Devices: Cane Allergies Allergies Allergy/AdvReac Type Severity Reaction Status Date / Time enoxaparin Allergy Unknown Illness Verified 02/22/20 17:25 morphine Allergy Unknown Unknown Verified 02/22/20 17:25 adhesive AdvReac Unknown SORES WITH Verified 02/22/20 17:25 "SOME TAPE" oxycodone AdvReac Unknown HALLUCINATI Verified 02/22/20 17:25 ONS Home Meds Home Medications Medication Instructions Recorded Confirmed allopurinol [Zyloprim] 300 mg PO QAM 01/09/18 02/22/20 gemfibrozil [Lopid] 600 mg PO QAM 01/09/18 02/22/20 glipizide [Glucotrol] 10 mg PO BID 01/09/18 02/22/20 pantoprazole [Protonix] 40 mg PO QAM 01/09/18 02/22/20 Lantus Solostar U-100 Insulin 15 unit SUBCUT DAILY@2100 11/12/18 02/22/20 pregabalin 50 mg PO BID 03/22/19 02/22/20 metoprolol tartrate 100 mg tablet 100 mg PO BID 05/01/19 02/22/20 furosemide 40 mg tablet 80 mg PO BID tab 09/04/19 02/22/20 levothyroxine 50 mcg PO QAM 02/22/20 02/22/20 potassium chloride [Klor-Con M20] See Rx Instructions .ROUTE .COMPLEX 02/22/20 02/22/20 warfarin 2.5 mg PO 4XWK 02/22/20 02/22/20 warfarin 5 mg PO 3XWK 02/22/20 02/22/20 Previous Rx's Medication Instructions Recorded aspirin [Ecotrin Low Strength] 81 mg PO QAM #30 tab 01/14/18 Results & Data (ED) Vital Signs Vital Signs - 24 hr 02/22/20 14:52 02/22/20 15:28 02/22/20 15:30 Temperature 36.5 C 36.5 C Temperature Source Oral Oral Pulse Rate 71 Pulse Rate [Apical] 78 Pulse Rate from SpO2 Sensor Pulse Rhythm Regular Pulse Strength Normal Respiratory Rate 20 18 Respiratory Effort / Characteristics Non-Labored Respiratory Depth Normal Blood Pressure 115/76 Blood Pressure [Right Arm] 99/72 L Blood Pressure Mean 89 Blood Pressure Mean [Right Arm] 81 Blood Pressure Position Sitting Pulse Oximetry 98 96 97 Oxygen Delivery Method Room Air Room Air Room Air Sepsis Recent Fever Within 48 Hours No Sepsis New/Unexplained Change in Mental Status No Sepsis Action Taken by Nursing No Action Required 02/22/20 16:00 02/22/20 16:12 02/22/20 16:30 Temperature Temperature Source Pulse Rate Pulse Rate [Apical] 71 Pulse Rate from SpO2 Sensor 76 Pulse Rhythm Pulse Strength Respiratory Rate 19 Respiratory Effort / Characteristics Respiratory Depth Blood Pressure 92/66 L Blood Pressure [Right Arm] 103/69 Blood Pressure Mean 78 Blood Pressure Mean [Right Arm] 80 Blood Pressure Position Pulse Oximetry 94 99 Oxygen Delivery Method Room Air Room Air Sepsis Recent Fever Within 48 Hours Sepsis New/Unexplained Change in Mental Status Sepsis Action Taken by Nursing 02/22/20 17:00 02/22/20 17:30 02/22/20 18:00 Temperature Temperature Source Pulse Rate 72 73 72 Pulse Rate [Apical] Pulse Rate from SpO2 Sensor 76 71 Pulse Rhythm Pulse Strength Respiratory Rate 21 15 20 Respiratory Effort / Characteristics Respiratory Depth Blood Pressure 110/65 95/66 L 103/67 Blood Pressure [Right Arm] Blood Pressure Mean 82 75 93 Blood Pressure Mean [Right Arm] Blood Pressure Position Pulse Oximetry 98 97 96 Oxygen Delivery Method Room Air Sepsis Recent Fever Within 48 Hours Sepsis New/Unexplained Change in Mental Status Sepsis Action Taken by Nursing 02/22/20 18:30 02/22/20 19:00 Temperature Temperature Source Pulse Rate 76 69 Pulse Rate [Apical] Pulse Rate from SpO2 Sensor 75 Pulse Rhythm Pulse Strength Respiratory Rate 18 20 Respiratory Effort / Characteristics Respiratory Depth Blood Pressure 111/71 119/70 Blood Pressure [Right Arm] Blood Pressure Mean 83 81 Blood Pressure Mean [Right Arm] Blood Pressure Position Pulse Oximetry 96 97 Oxygen Delivery Method Sepsis Recent Fever Within 48 Hours Sepsis New/Unexplained Change in Mental Status Sepsis Action Taken by [place] Medications Current Medication List: was personally reviewed by me Laboratory Data Attestation: I reviewed the patient's lab results. Result diagrams: 02/22/20 15:46 02/22/20 15:46 Lab Results 02/22/20 02/22/20 02/22/20 Range/Units 15:46 15:46 15:46 WBC 12.96 H (4.8-10.8) K/uL RBC 3.47 L (4.7-6.1) M/uL Hgb 10.8 L (14.0-18.0) g/dL POC Hgb (14.0-18.0) g/dl Hct 34.9 L (42-52) % POC Hct (42-52) % MCV 100.6 H (80-100) fL MCH 31.1 (25-34) pg MCHC 30.9 L (32-36) g/dL RDW Std Deviation 71.7 H (36.4-46.3) fL RDW Coeff of Jose 19.6 H (11.5-14.5) % Plt Count 555 H (130-400) K/uL MPV 12.4 H (7.4-10.4) fL Immature Gran % (Auto) 3.4 % Neut % (Auto) 67.3 % Lymph % (Auto) 18.6 % [place] % (Auto) 9.5 % Eos % (Auto) 0.9 % Baso % (Auto) 0.3 % Neut # (Auto) 8.72 H (1.4-6.5) K/uL Lymph # (Auto) 2.41 (1.2-3.4) K/uL [place] # (Auto) 1.23 H (0.11-0.59) K/uL Eos # (Auto) 0.12 (0-0.5) K/uL Baso # (Auto) 0.04 (0-0.2) K/uL Immature Gran # (Auto) 0.44 H (0.00-0.02) K/uL PT 29.8 H (9.0-12.0) Seconds INR 3.0 H (0.9-1.1) POC Sodium (135-144) mmol/L Sodium 135 L (136-145) mmol/L POC Potassium (3.3-5.0) mmol/L Potassium 3.6 (3.5-5.1) mmol/L POC Chloride (101-112) mmol/L Chloride 95 L (98-107) mmol/L Carbon Dioxide 36 H (21-32) mmol/L POC Total CO2 (24-31) mmol/L Anion Gap 4.0 (3-11) POC Anion Gap (16-25) mmol/L POC BUN (7-18) mg/dl BUN 94 H (7-18) mg/dl Creatinine 3.20 H (0.6-1.4) mg/dl POC Creatinine (0.6-1.3) mg/dl Est Cr Clr Drug Dosing 28.1 ml/min Est GFR ( Amer) 20.8 Est GFR (Non-Af Amer) 18.0 BUN/Creatinine Ratio 29.4 H (10-20) Glucose 153 H (70-99) mg/dl POC Glucose (other) (70-99) mg/dl Calcium 9.0 (8.5-10.1) mg/dl POC Ioniz Calcium Matthew (1.12-1.32) mmol/l Total Bilirubin 3.2 H (0.2-1) mg/dl AST 19 (15-37) U/L ALT 15 (12-78) U/L Alkaline Phosphatase 144 H (45-117) U/L Ammonia (11-32) umol/L Troponin I 0.020 (0-0.045) ng/ml Total Protein 8.4 H (6.4-8.2) gm/dl Albumin 3.1 L (3.4-5.0) gm/dl Globulin 5.3 H (2.5-4.0) gm/dl Albumin/Globulin Ratio 0.6 L (0.9-2) TSH 2.110 (0.300-4.500) uIu/ml Urine Color Urine Appearance (Clear) Urine pH (4.5-7.5) Ur Specific [place] (1.000-1.030) Urine Protein (Negative) Urine Glucose (UA) (Negative) Urine Ketones (Negative) Urine Blood (Negative) Urine Nitrite (Negative) Urine Bilirubin (Negative) Urine Urobilinogen (Negative) Ur Leukocyte Esterase (Negative) Urine WBC (Auto) (0-5) /hpf Urine RBC (Auto) (0-4) /hpf U Hyaline Cast (Auto) (0-5) /lpf U Epithel Cells (Auto) (0-5) /lpf Urine Bacteria (Auto) (Negative) 02/22/20 02/22/20 02/22/20 Range/Units 15:46 15:54 16:54 WBC (4.8-10.8) K/uL RBC (4.7-6.1) M/uL Hgb (14.0-18.0) g/dL POC Hgb 11.6 L (14.0-18.0) g/dl Hct (42-52) % POC Hct 34 L (42-52) % MCV (80-100) fL MCH (25-34) pg MCHC (32-36) g/dL RDW Std Deviation (36.4-46.3) fL RDW Coeff of Jose (11.5-14.5) % Plt Count (130-400) K/uL MPV (7.4-10.4) fL Immature Gran % (Auto) % Neut % (Auto) % Lymph % (Auto) % [place] % (Auto) % Eos % (Auto) % Baso % (Auto) % Neut # (Auto) (1.4-6.5) K/uL Lymph # (Auto) (1.2-3.4) K/uL [place] # (Auto) (0.11-0.59) K/uL Eos # (Auto) (0-0.5) K/uL Baso # (Auto) (0-0.2) K/uL Immature Gran # (Auto) (0.00-0.02) K/uL PT (9.0-12.0) Seconds INR (0.9-1.1) POC Sodium 137 (135-144) mmol/L Sodium (136-145) mmol/L POC Potassium 3.7 (3.3-5.0) mmol/L Potassium (3.5-5.1) mmol/L POC Chloride 92 L (101-112) mmol/L Chloride (98-107) mmol/L Carbon Dioxide (21-32) mmol/L POC Total CO2 34 H (24-31) mmol/L Anion Gap (3-11) POC Anion Gap 15.0 L (16-25) mmol/L POC BUN 97 H (7-18) mg/dl BUN (7-18) mg/dl Creatinine (0.6-1.4) mg/dl POC Creatinine 3.2 H (0.6-1.3) mg/dl Est Cr Clr Drug Dosing ml/min Est GFR ( Amer) Est GFR (Non-Af Amer) BUN/Creatinine Ratio (10-20) Glucose (70-99) mg/dl POC Glucose (other) 151 H (70-99) mg/dl Calcium (8.5-10.1) mg/dl POC Ioniz Calcium Matthew 1.09 L (1.12-1.32) mmol/l Total Bilirubin (0.2-1) mg/dl AST (15-37) U/L ALT (12-78) U/L Alkaline Phosphatase (45-117) U/L Ammonia 61.0 H (11-32) umol/L Troponin I (0-0.045) ng/ml Total Protein (6.4-8.2) gm/dl Albumin (3.4-5.0) gm/dl Globulin (2.5-4.0) gm/dl Albumin/Globulin Ratio (0.9-2) TSH (0.300-4.500) uIu/ml Urine Color Yellow Urine Appearance Clear (Clear) Urine pH 7.0 (4.5-7.5) Ur Specific [place] 1.010 (1.000-1.030) Urine Protein Negative (Negative) Urine Glucose (UA) Negative (Negative) Urine Ketones Negative (Negative) Urine Blood Negative (Negative) Urine Nitrite Negative (Negative) Urine Bilirubin Negative (Negative) Urine Urobilinogen Negative (Negative) Ur Leukocyte Esterase Trace H (Negative) Urine WBC (Auto) 5-10 H (0-5) /hpf Urine RBC (Auto) 0-4 (0-4) /hpf U Hyaline Cast (Auto) 1-5 (0-5) /lpf U Epithel Cells (Auto) 5-10 H (0-5) /lpf Urine Bacteria (Auto) Negative (Negative) Administered Medications Discontinued Medications Sodium Chloride (Nss 1000ml) 250 mls @ 999 mls/hr IV .Q16M ONE Stop: 02/22/20 15:23 Last Infusion: 02/22/20 16:31 Dose: 0 mls/hr Documented by: [id number] Admin: 02/22/20 15:48 Dose: 999 mls/hr Documented by: [id number] Lactulose (Lactulose Syrup 20 Gm/30 Ml Udc) 30 gm PO NOW STA Stop: 02/22/20 17:17 Last Admin: 02/22/20 17:54 Dose: 30 gm Documented by: [id number] Discharge Plan Visit Data Chief Complaint: Confusion Stated Complaint: CONFUSION,SLURRED SPEECH ED Provider: Eligio Padilla Discharge Problem: Acute confusion, Acute uremia, Hyperammonemia Patient Disposition: Admitted As Inpatient Discharge Instructions Interventions: ED Discharge Assessment Last Done: 02/22/20 21:20
[2020-02-22] MEDS ORDERED: SODIUM CHLORIDE 0.9% 1000ML 250 ML IV ONE (15:08)
--- NOTE | 2020-02-22 15:57 | XRay Report ---
XR chest 1V portable CLINICAL HISTORY: weakness COMPARISON STUDY: Chest radiograph November 27, 2019. FINDINGS: There are median sternotomy wires. Moderate cardiomegaly is noted without evidence for pulm onary edema. No pneumothorax or pleural effusion is noted. Mild elevation of the right hemidiaphragm is noted. Apparent right basilar opacity is similar to prior exams and likely reflects vessels or ate lectasis. IMPRESSION: No acute cardiopulmonary findings. No significant change in appearance of the chest. ACT 112: Negative or not required by law. Electronically signed by: Yao Clement M.D. 02/22/2020 3:55 PM
[2020-02-22 16:05] LABS: Basophils # (auto) 0.04 K/uL (0-0.2); Basophils % (auto) 0.3 %; Eosinophils # (auto) 0.12 K/uL (0-0.5); Eosinophils % (auto) 0.9 %; Hematocrit (blood only) 34.9 % (42-52); Hemoglobin 10.8 g/dL (14.0-18.0); Immature Granulocytes # (auto) 0.44 K/uL (0.00-0.02); Immature Granulocytes % (auto) 3.4 %; Lymphocytes # (auto) 2.41 K/uL (1.2-3.4); Lymphocytes % (auto) 18.6 %; Mean Corpuscular Hemoglobin 31.1 pg (25-34); Mean Corpuscular Hgb Conc 30.9 g/dL (32-36); Mean Corpuscular Volume 100.6 fL (80-100); Mean Platelet Volume 12.4 fL (7.4-10.4); Monocytes # (auto) 1.23 K/uL (0.11-0.59); Monocytes % (auto) 9.5 %; Neutrophils # (auto) 8.72 K/uL (1.4-6.5); Neutrophils % (auto) 67.3 %; Platelet Count 555 K/uL (130-400); RDW Coefficient of Variation 19.6 % (11.5-14.5); RDW Standard Deviation 71.7 fL (36.4-46.3); Red Blood Count 3.47 M/uL (4.7-6.1); White Blood Count 12.96 K/uL (4.8-10.8)
[2020-02-22 16:06] LABS: iSTAT Creatinine 3.2 mg/dl (0.6-1.3); iSTAT Hemoglobin 11.6 g/dl (14.0-18.0); iSTAT Ionized Calcium 1.09 mmol/l (1.12-1.32); iSTAT Potassium 3.7 mmol/L (3.3-5.0)
[2020-02-22 16:14] LABS: Prothrombin Time 29.8 Seconds (9.0-12.0)
[2020-02-22 16:20] LABS: Albumin Level 3.1 gm/dl (3.4-5.0); BUN Creatinine Ratio 29.4 (10-20); Creatinine Clr Calc Pharmacy 28.1 ml/min; Est GFR (African American) 20.8; Potassium 3.6 mmol/L (3.5-5.1)
--- NOTE | 2020-02-22 16:21 | CT Scan Report ---
CT SCAN OF THE BRAIN WITHOUT IV CONTRAST CLINICAL HISTORY: Change in mental status. COMPARISON STUDY: CT of the brain dated 02/20/2020. TECHNIQUE: Unenhanced axial CT scan of the brain is performed from the vertex to the skull base. A do se lowering technique was utilized adhering to the principles of ALARA. CT DOSE: 614.27 mGy.cm FINDINGS: Brain parenchyma: There are age-related involutional changes noting mild subcortical and periventric ular microangiopathic change. There is no hemorrhage, mass effect, or evidence of acute territorial i schemia by CT criteria. Humphries-white matter differentiation is preserved. No extra-axial fluid collecti on is seen. Ventricles, sulci, cisterns: Prominent secondary to involutional change. Intracranial vasculature: There is atherosclerotic calcification of the cavernous carotid and vertebr al arteries. Calvarium: Unremarkable. Sinuses and mastoids: The visualized paranasal sinuses are clear. The mastoid air cells are well pneu matized. Orbits: The bony orbits are grossly intact. IMPRESSION: There is no hemorrhage, mass effect, or evidence of acute territorial ischemia by CT c[place]. ACT 112: Negative or not required by law. Electronically signed by: Ho Denny M.D. 02/22/2020 4:19 PM
[2020-02-22 16:31] LABS: Albumin Globulin Ratio 0.6 (0.9-2); Bilirubin,Total 3.2 mg/dl (0.2-1); Globulin 5.3 gm/dl (2.5-4.0); Thyroid Stimulating Hormone 2.11 uIu/ml (0.300-4.500); Total Protein 8.4 gm/dl (6.4-8.2); Troponin I 0.02 ng/ml (0-0.045)
[2020-02-22] MEDS ORDERED: LACTULOSE SYRUP 20 GM/30 ML UDC PO STA (17:16)
[2020-02-22 17:17] LABS: Appearance Urine Clear (Clear); Bacteria Urine Automated Negative (Negative); Bilirubin Urine Negative (Negative); Blood Urine Negative (Negative); Color Urine Yellow; Glucose Urine UA Negative (Negative); Ketones Urine Negative (Negative); Leukocyte Esterase Urine Trace (Negative); Nitrite Urine Negative (Negative); Protein Urine Negative (Negative); RBC Urine Automated 0-4 /hpf (0-4); Urobilinogen Urine Negative (Negative)
--- NOTE | 2020-02-22 20:58 | History & Physical Report ---
Date of Service February 22, 2020 Assessment & Plan (1) Confusion: Patient presents with similar General symptoms this admission as he did for admission that began on November 22, 2019. His symptoms included confusion, generalized weakness and lethargy which at that time were thought due to early sepsis and metabolic encephalopathy, which still are strong considerations this visit as well. We will order an MRI of the brain to assess for stroke. We will order an echocardiogram to assess functioning of heart valve, and for possible endocarditis. Present on Admission?: Yes (2) Chronic diastolic congestive heart failure: Hold furosemide Present on Admission?: Yes (3) Hyperlipidemia: Continue gemfibrozil 600 mg every morning Present on Admission?: Yes (4) Diabetes: Hold glipizide Reduce Lantus Placed on Accu-Cheks before meals and at bedtime with NovoLog coverage for scale Present on Admission?: Yes (5) Mechanical heart valve present: As above, order echocardiogram. Patient may require TRINA to assess for endocarditis Present on Admission?: Yes (6) Hypertension: See above Present on Admission?: Yes (7) Gout: Continue allopurinol 3 mg daily Present on Admission?: Yes (8) GERD (gastroesophageal reflux disease): Continue pantoprazole 40 mg daily Present on Admission?: Yes (9) Uremia: Hold diuretics and gently rehydrate Present on Admission?: Yes (10) Urinary tract infection: Possible prostatitis/urinary tract infection- Follow urine culture and sensitivities Placed on ceftriaxone 2 g IV daily Present on Admission?: Yes (11) Acute kidney injury superimposed on chronic kidney disease: Creatinine 3.20 upon admission, with range 1.49-2.43. Holding diuretics. Gently rehydrate with normal saline, and recheck laboratories in a.m. Present on Admission?: Yes History of Present Illness Chief Complaint: The patient is brought to the emergency department by family due to concerns regarding worsening confusion, generalized weakness and slurred speech over the past week Primary Care Provider: Leonel Manriquez MD The patient is a 74-year-old male with a past medical history including chronic diastolic CHF, HFpEF, hyperlipidemia, diabetes mellitus, hypertension, anemia, gout, GERD, bronchitis, peripheral neuropathy, LINO, COPD, left AKA, epistaxis and mechanical valve. His most recent hospitalization was from 11/21-11/27/2023 urinary tract infection, and essentially the same symptoms as he otherwise presented with today. Allergies Allergy/AdvReac Type Severity Reaction Status Date / Time enoxaparin Allergy Unknown Illness Verified 02/22/20 17:25 morphine Allergy Unknown Unknown Verified 02/22/20 17:25 adhesive AdvReac Unknown SORES WITH Verified 02/22/20 17:25 "SOME TAPE" oxycodone AdvReac Unknown HALLUCINATI Verified 02/22/20 17:25 ONS Home Medications Medication Instructions Recorded Confirmed Type allopurinol [Zyloprim] 300 mg PO QAM 01/09/18 02/22/20 History gemfibrozil [Lopid] 600 mg PO QAM 01/09/18 02/22/20 History glipizide [Glucotrol] 10 mg PO BID 01/09/18 02/22/20 History pantoprazole [Protonix] 40 mg PO QAM 01/09/18 02/22/20 History aspirin [Ecotrin Low Strength] 81 mg PO QAM #30 tab 01/14/18 02/22/20 Rx Lantus Solostar U-100 Insulin 15 unit SUBCUT DAILY@2100 11/12/18 02/22/20 History pregabalin 50 mg PO BID 03/22/19 02/22/20 History metoprolol tartrate 100 mg tablet 100 mg PO BID 05/01/19 02/22/20 History furosemide 40 mg tablet 80 mg PO BID tab 09/04/19 02/22/20 History levothyroxine 50 mcg PO QAM 02/22/20 02/22/20 History potassium chloride [Klor-Con M20] See Rx Instructions .ROUTE .COMPLEX 02/22/20 02/22/20 History warfarin 2.5 mg PO 4XWK 02/22/20 02/22/20 History warfarin 5 mg PO 3XWK 02/22/20 02/22/20 History Past Med/Surg History Medical History Afib Amputation of left lower extremity below knee Anemia Bronchitis CHF (congestive heart failure) Diabetes GERD (gastroesophageal reflux disease) Gout Hyperlipidemia Hypertension Thrombocytosis Uremia Surgical History History of appendectomy History of cholecystectomy Mechanical heart valve present 1997 S/P AKA (above knee amputation) unilateral Family History Other Family history of diabetes mellitus Social History Smoking Status: Never smoker Second Hand Exposure: No; Hx Alcohol Use: No Hx Substance Use: No Preferred Language: Malagasy Communication Ability: Effective Visual Impairment: No Limitations Forensic Examiner Required: No Beliefs That Will Affect Care: None marital status: Current Living Situation: Spouse Feels Safe at Home: Yes Assistive Devices: Glasses and Wheelchair Review of Systems Review of Systems: The patient denies chest pain, palpitations, shortness of breath, dyspnea on exertion, cough, lower extremity swelling, sore throat, fevers, chills, sweats, vomiting, diarrhea , constipation, abdominal pain, pelvic pain, blood in urine or stool, dysuria, urinary frequency or urgency, loss of consciousness, rash, abnormal bruising or bleeding, imbalance, focal weakness, numbness or tingling in arms or legs, generalized arthralgias or myalgias, back or neck pain, or night sweats. The review of systems is otherwise negative other than for that already noted above, and at least 10 systems have been reviewed. Physical Exam Physical Exam: The patient is awake, but lethargic, well developed and well nourished, normocephalic and atraumatic, lying in bed and in no acute distress. HEENT--PERRL, EOMI, mucous membranes and oropharynx dry. Neck--supple. No JVD. No bruits. Thyroid normal, trachea midline, no adenopathy. Heart--normal S1 and S2. No murmurs, rubs or gallops. Lungs--clear bilaterally, no respiratory distress, no accessory muscle use. Abdomen--normal bowel sounds and soft. Nontender. Nondistended. Morbidly obese Extremities--no cyanosis or clubbing. No edema. Dermatologic--normal skin turgor, normal color, no abnormal lymph nodes, no rash. Neurologic--cranial nerves II through XII grossly intact. Rheumatologic--normal range of motion. Psychiatric--lethargic Results & Data Results & Data ([facility]) Vital Signs (Past 12 Hours) Vital Signs Temp Pulse Pulse Resp BP BP Pulse Ox 02/22/20 20:30 69 16 101/74 98 02/22/20 20:17 72 16 109/67 98 02/22/20 20:00 68 14 109/67 95 02/22/20 19:30 72 16 114/75 96 02/22/20 19:00 69 20 119/70 97 02/22/20 18:30 76 18 111/71 96 02/22/20 18:00 72 20 103/67 96 02/22/20 17:30 73 15 95/66 L 97 02/22/20 17:00 72 21 110/65 98 02/22/20 16:30 71 19 103/69 99 02/22/20 16:00 92/66 L 94 02/22/20 15:30 97.7 F 78 18 99/72 L 97 02/22/20 15:28 96 02/22/20 14:52 97.7 F 71 20 115/76 98 Laboratory Results Laboratory Results WBC 12.96 K/uL (4.8-10.8) H 02/22/20 15:46 RBC 3.47 M/uL (4.7-6.1) L 02/22/20 15:46 Hgb 10.8 g/dL (14.0-18.0) L 02/22/20 15:46 POC Hgb 11.6 g/dl (14.0-18.0) L 02/22/20 15:54 Hct 34.9 % (42-52) L 02/22/20 15:46 POC Hct 34 % (42-52) L 02/22/20 15:54 MCV 100.6 fL (80-100) H 02/22/20 15:46 MCH 31.1 pg (25-34) 02/22/20 15:46 MCHC 30.9 g/dL (32-36) L 02/22/20 15:46 RDW Std Deviation 71.7 fL (36.4-46.3) H 02/22/20 15:46 RDW Coeff of Jose 19.6 % (11.5-14.5) H 02/22/20 15:46 Plt Count 555 K/uL (130-400) H 02/22/20 15:46 MPV 12.4 fL (7.4-10.4) H 02/22/20 15:46 Immature Gran % (Auto) 3.4 % 02/22/20 15:46 Neut % (Auto) 67.3 % 02/22/20 15:46 Lymph % (Auto) 18.6 % 02/22/20 15:46 [place] % (Auto) 9.5 % 02/22/20 15:46 Eos % (Auto) 0.9 % 02/22/20 15:46 Baso % (Auto) 0.3 % 02/22/20 15:46 Neut # (Auto) 8.72 K/uL (1.4-6.5) H 02/22/20 15:46 Lymph # (Auto) 2.41 K/uL (1.2-3.4) 02/22/20 15:46 [place] # (Auto) 1.23 K/uL (0.11-0.59) H 02/22/20 15:46 Eos # (Auto) 0.12 K/uL (0-0.5) 02/22/20 15:46 Baso # (Auto) 0.04 K/uL (0-0.2) 02/22/20 15:46 Immature Gran # (Auto) 0.44 K/uL (0.00-0.02) H 02/22/20 15:46 PT 29.8 Seconds (9.0-12.0) H 02/22/20 15:46 INR 3.0 (0.9-1.1) H 02/22/20 15:46 POC Sodium 137 mmol/L (135-144) 02/22/20 15:54 Sodium 135 mmol/L (136-145) L 02/22/20 15:46 POC Potassium 3.7 mmol/L (3.3-5.0) 02/22/20 15:54 Potassium 3.6 mmol/L (3.5-5.1) 02/22/20 15:46 POC Chloride 92 mmol/L (101-112) L 02/22/20 15:54 Chloride 95 mmol/L (98-107) L 02/22/20 15:46 Carbon Dioxide 36 mmol/L (21-32) H 02/22/20 15:46 POC Total CO2 34 mmol/L (24-31) H 02/22/20 15:54 Anion Gap 4.0 (3-11) 02/22/20 15:46 POC Anion Gap 15.0 mmol/L (16-25) L 02/22/20 15:54 POC BUN 97 mg/dl (7-18) H 02/22/20 15:54 BUN 94 mg/dl (7-18) H 02/22/20 15:46 Creatinine 3.20 mg/dl (0.6-1.4) H 02/22/20 15:46 POC Creatinine 3.2 mg/dl (0.6-1.3) H 02/22/20 15:54 Est Cr Clr Drug Dosing 28.1 ml/min 02/22/20 15:46 Est GFR ( Amer) 20.8 02/22/20 15:46 Est GFR (Non-Af Amer) 18.0 02/22/20 15:46 BUN/Creatinine Ratio 29.4 (10-20) H 02/22/20 15:46 Glucose 153 mg/dl (70-99) H 02/22/20 15:46 POC Glucose (other) 151 mg/dl (70-99) H 02/22/20 15:54 Calcium 9.0 mg/dl (8.5-10.1) 02/22/20 15:46 POC Ioniz Calcium Matthew 1.09 mmol/l (1.12-1.32) L 02/22/20 15:54 Total Bilirubin 3.2 mg/dl (0.2-1) H 02/22/20 15:46 AST 19 U/L (15-37) 02/22/20 15:46 ALT 15 U/L (12-78) 02/22/20 15:46 Alkaline Phosphatase 144 U/L (45-117) H 02/22/20 15:46 Ammonia 61.0 umol/L (11-32) H 02/22/20 15:46 Troponin I 0.020 ng/ml (0-0.045) 02/22/20 15:46 Total Protein 8.4 gm/dl (6.4-8.2) H 02/22/20 15:46 Albumin 3.1 gm/dl (3.4-5.0) L 02/22/20 15:46 Globulin 5.3 gm/dl (2.5-4.0) H 02/22/20 15:46 Albumin/Globulin Ratio 0.6 (0.9-2) L 02/22/20 15:46 TSH 2.110 uIu/ml (0.300-4.500) 02/22/20 15:46 Urine Color Yellow 02/22/20 16:54 Urine Appearance Clear (Clear) 02/22/20 16:54 Urine pH 7.0 (4.5-7.5) 02/22/20 16:54 Ur Specific [place] 1.010 (1.000-1.030) 02/22/20 16:54 Urine Protein Negative (Negative) 02/22/20 16:54 Urine Glucose (UA) Negative (Negative) 02/22/20 16:54 Urine Ketones Negative (Negative) 02/22/20 16:54 Urine Blood Negative (Negative) 02/22/20 16:54 Urine Nitrite Negative (Negative) 02/22/20 16:54 Urine Bilirubin Negative (Negative) 02/22/20 16:54 Urine Urobilinogen Negative (Negative) 02/22/20 16:54 Ur Leukocyte Esterase Trace (Negative) H 02/22/20 16:54 Urine WBC (Auto) 5-10 /hpf (0-5) H 02/22/20 16:54 Urine RBC (Auto) 0-4 /hpf (0-4) 02/22/20 16:54 U Hyaline Cast (Auto) 1-5 /lpf (0-5) 02/22/20 16:54 U Epithel Cells (Auto) 5-10 /lpf (0-5) H 02/22/20 16:54 Urine Bacteria (Auto) Negative (Negative) 02/22/20 16:54 SARS-CoV-2 Ag (Rapid) Negative (Negative) 02/22/20 20:34 Diagnostic Findings [facility], [phone] XRay Report Patient: JUAN SIU IIIAdmit Date: 02/22/20MR#: [id number]: [address]Acct ID:[id number]: [facility] Zip: [place] [id number]: 74Location: EDSex: MRoom/Bed:Att Phy:Diagnosis: CONFUSION,SLURRED SPEECHPri Phy: PCP,NOService Date: 02/22/20Fam Phy:Interpreting Phy: Yao Clement [facility]: Ordering Phy: Eligio Padilla MD cc: ~ XR chest 1V portable CLINICAL HISTORY: weakness COMPARISON STUDY: Chest radiograph November 27, 2019. FINDINGS: There are median sternotomy wires. Moderate cardiomegaly is noted without evidence for pulmonary edema. No pneumothorax or pleural effusion is noted. Mild elevation of the right hemidiaphragm is noted. Apparent right basilar opacity is similar to prior exams and likely reflects vessels or atelectasis. IMPRESSION: No acute cardiopulmonary findings. No significant change in appearance of the chest. ACT 112: Negative or not required by law. Electronically signed by: Yao Clement M.D. 02/22/2020 3:55 PM Dictated: 02/22/20 1554Transcribed: 02/22/20 155 [facility], [phone] CT Scan Report Patient: JUAN SIU IIIAdmit Date: 02/22/20MR#: [id number]: [address]Acct ID:[id number]: Date: [address] [place] [address] Zip: [place] [id number]: 74Location: EDSex: MRoom/Bed:Att Phy:Diagnosis: CONFUSION,SLURRED SPEECHPri Phy: PCP,NOService Date: 02/22/20Fa Phy:I nterpreting Phy: Ho Denny MDAdmit Phy: Ordering Phy: Eligio Padilla MD cc: ~ CT SCAN OF THE BRAIN WITHOUT IV CONTRAST CLINICAL HISTORY: Change in mental status. COMPARISON STUDY: CT of the brain dated 02/20/2020. TECHNIQUE: Unenhanced axial CT scan of the brain is performed from the vertex to the skull base. A dose lowering technique was utilized adhering to the principles of ALARA. CT DOSE: 614.27 mGy.cm FINDINGS: Brain parenchyma: There are age-related involutional changes noting mild subcortical and periventricular microangiopathic change. There is no hemorrhage, mass effect, or evidence of acute territorial ischemia by CT criteria. Humphries- white matter differentiation is preserved. No extra-axial fluid collection is seen. Ventricles, sulci, cisterns: Prominent secondary to involutional change. Intracranial vasculature: There is atherosclerotic calcification of the cavernous carotid and vertebral arteries. Calvarium: Unremarkable. Sinuses and mastoids: The visualized paranasal sinuses are clear. The mastoid air cells are well pneumatized. Orbits: The bony orbits are grossly intact. IMPRESSION: There is no hemorrhage, mass effect, or evidence of acute ter ritorial ischemia by CT criteria. ACT 112: Negative or not required by law. Electronically signed by: Ho Denny M.D. 02/22/2020 4:19 PM Dictated: 02/22/20 1617Transcribed: 02/22/20 1617 Code Status & VTE Plan Code Status Full code VTE Prophylaxis Plan VTE Prophylaxis will be ordered: Yes PG Care Time/CCT Total # of Minutes Spent Total Time Spent with Patient: Total time spent is greater than 50% in coordination of care (as documented) at patient's floor/unit and/or counseling patient: Coding Level of Care Code 58488 Initial Inpt Care Lvl 3 Diagnoses Confusion R41.0 Chronic diastolic congestive heart failure I50.32 Hyperlipidemia E78.5 Hyperlipidemia type: unspecified Diabetes E11.42; Z79.4 Diabetes mellitus type: type 2 Diabetes mellitus usp insulin use: with usp use Diabetes mellitus complication status: with neurologic complications Diabetes mellitus complication detail: with polyneuropathy Mechanical heart valve present Z95.2 Hypertension I10 Hypertension type: essential hypertension Gout M10.9 Gout site: unspecified site Gout etiology: unspecified cause Chronicity: unspecified GERD (gastroesophageal reflux disease) K21.9 Esophagitis presence: esophagitis presence not specified Uremia N19 Urinary tract infection N30.01 Hematuria presence: with hematuria Urinary tract infection type: acute cystitis Acute kidney injury superimposed on chronic kidney disease N17.9; N18.9 (1) Hyperlipidemia Hyperlipidemia type: unspecified Qualified Code(s): E78.5 - Hyperlipidemia, unspecified (2) Diabetes Diabetes mellitus type: type 2 Diabetes mellitus intermediate frame tender insulin use: with usp use Diabetes mellitus complication status: with neurologic complications Diabetes mellitus complication detail: with polyneuropathy Qualified Code(s): E11.42 - Type 2 diabetes mellitus with diabetic polyneuropathy; 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 (3) Hypertension Hypertension type: essential hypertension Qualified Code(s): I10 - Essential (primary) hypertension (4) Gout Gout site: unspecified site Gout etiology: unspecified cause Chronicity: unspecified Qualified Code(s): M10.9 - Gout, unspecified (5) GERD (gastroesophageal reflux disease) Esophagitis presence: esophagitis presence not specified Qualified Code(s): K21.9 - Gastro-esophageal reflux disease without esophagitis (6) Urinary tract infection Hematuria presence: with hematuria Urinary tract infection type: acute cystitis Qualified Code(s): N30.01 - Acute cystitis with hematuria
[2020-02-22] MEDS ORDERED: ONDANSETRON INJ 2 MG/ML 2 ML VIAL IV PRN (21:43)
[2020-02-22] MEDS ORDERED: CARBOHYDRATES FOR HYPOGLYCEMIA PO PRN (22:15)
[2020-02-22] MEDS ORDERED: GLUCOSE 40% GEL 15 GM TUBE PO PRN (22:15)
[2020-02-22] MEDS ORDERED: DEXTROSE 50% 50 ML SYRINGE IV PRN (22:15)
[2020-02-22] MEDS ORDERED: GLUCAGON FOR INJ 1 MG VIAL IM PRN (22:15)
[2020-02-22] MEDS ORDERED: GLUCOSE 10 TABS/TUBE PO PRN (22:15)
[2020-02-22] MEDS: SODIUM CHLORIDE 0.9% 1000ML 1,000 ML IV SCH (23:48)
[2020-02-22] MEDS: cefTRIAXone SODIUM 2,000 MG in DEXTROSE 5% 50 ML IV SCH (23:48)
[2020-02-23] MEDS: PREGABALIN 50 MG CAP PO SCH ×3 (00:03→21:56)
[2020-02-23] MEDS: METOPROLOL TARTRATE 100 MG TAB PO SCH ×3 (00:03→21:42)
[2020-02-23] MEDS: INSULIN GLARGINE SOLOSTAR 100 UNITS/ML 3 ML PEN SQ SCH ×2 (00:03→21:43)
--- NOTE | 2020-02-23 06:02 | Electrocardiogram Report ---
Test Reason : Blood Pressure : / mmHG Vent. Rate : 070 BPM Atrial Rate : 076 BPM P-R Int : 000 ms QRS Dur : 100 ms QT Int : 418 ms P-R-T Axes : 000 004 206 degrees QTc Int : 451 ms Atrial fibrillation with premature ventricular or aberrantly conducted complexes Cannot rule out Inferior infarct , age undetermined Abnormal ECG When compared with ECG of 22-NOV-2019 19:51, Minimal criteria for Inferior infarct are now Present Inverted T waves have replaced nonspecific T wave abnormality in Inferior leads T wave inversion now evident in Anterior leads Confirmed by Urbano Morales ([id number]) on 02/23/2020 6:01:59 AM Referred By: Confirmed By:Urbano Morales
[2020-02-23] MEDS: LEVOTHYROXINE SODIUM 50 MCG TABLET PO SCH (06:32)
--- NOTE | 2020-02-23 07:21 | Magnetic Resonance Report ---
MRI OF THE BRAIN WITHOUT CONTRAST CLINICAL HISTORY: confusion COMPARISON STUDY: MRI of the brain January 02, 2016. Head CT February 22, 2020. TECHNIQUE: Utilizing a 1.5 Georgie magnet and dedicated coil, multiplanar, multiecho imaging of the bra in was performed without IV contrast. FINDINGS: There are no foci of restricted diffusion to suggest acute infarct. No acute intracranial h emorrhage, midline shift or mass effect is present. Basal cisterns are patent. There are no extra-axi al collections. A 3 mm T2 hyperintense focus within the white matter the left frontal lobe suggest mi ld small vessel disease. No intracranial mass is identified on this unenhanced exam. There is mild at rophy. There is apparent mildly diminished marrow signal within visualized portions of the upper cerv ical spine as well as portions of the calvarium and clivus. IMPRESSION: 1. No acute intracranial findings. 2. Mildly diminished marrow signal within visualized portions of the upper cervical spine as well as portions of the calvarium and clivus. This may reflect a marrow proliferative or marrow replacement p rocess. ACT 112: Negative or not required by law. Electronically signed by: Yao Clement M.D. 02/23/2020 7:20 AM
[2020-02-23 07:43] LABS: INR 3.2 (0.9-1.1); Prothrombin Time 31.6 Seconds (9.0-12.0)
[2020-02-23] MEDS ORDERED: LACTULOSE SYRUP 20 GM/30 ML UDC PO ONE (09:30)
[2020-02-23] MEDS: allopurinoL 300 MG TAB PO SCH (10:13)
[2020-02-23] MEDS: gemfibroziL 600 MG TAB PO SCH (10:13)
[2020-02-23] MEDS: PANTOprazole 40 MG TAB PO SCH (10:14)
[2020-02-23] MEDS: ASPIRIN 81 MG ECTAB PO SCH (10:14)
[2020-02-23 10:32] LABS: Albumin Globulin Ratio 0.6 (0.9-2); BUN Creatinine Ratio 33.4 (10-20); Calcium 9.2 mg/dl (8.5-10.1); Creatinine Clr Calc Pharmacy 32.9 ml/min; Est GFR (African American) 25.3; Est GFR (Non-African American) 21.9; Globulin 5.3 gm/dl (2.5-4.0); Total Protein 8.3 gm/dl (6.4-8.2)
[2020-02-23 10:52] LABS: Folate (Folic Acid) 12.2 ng/ml (>5.38)
[2020-02-23] MEDS ORDERED: POTASSIUM CHLORIDE CRTAB 20 MEQ TABCR PO ONE (11:15)
[2020-02-23] MEDS: POTASSIUM CHLORIDE CRTAB 20 MEQ TABCR PO SCH ×2 (13:35→21:41)
[2020-02-23] MEDS: SODIUM CHLORIDE 0.9% 1000ML 1,000 ML IV SCH (13:36)
--- NOTE | 2020-02-23 13:58 | XCELERA ---
[id number]
[2020-02-23] MEDS: INSULIN ASPART 100 UNITS/ML 3 ML PEN SC SCH ×2 (16:49→21:44)
[2020-02-23] MEDS: WARFARIN SOD 5 MG TAB PO SCH (16:53)
--- NOTE | 2020-02-23 19:35 | Ultrasound Report ---
ULTRASOUND RIGHT UPPER QUADRANT ABDOMEN CLINICAL HISTORY: Cirrhosis. COMPARISON STUDY: Abdominal CT and ultrasound dated 11/22/2019. TECHNIQUE: Real-time, grayscale, and color flow sonography of the right upper quadrant of the abdomen was performed. Images are reviewed in the transverse and longitudinal planes. FINDINGS: Liver: The liver is enlarged and heterogeneous in echotexture. There is nodularity of the hepatic precious face contour. There is no intrahepatic biliary ductal dilatation. The main portal vein is patent. Gallbladder: The gallbladder is surgically absent. The common bile duct measures up to 0.4 cm in diam eter. Pancreas: Visualized portions of the pancreatic head and body are normal in appearance. The splenic v ein is patent. Right kidney: Survey images of the right kidney demonstrate cortical atrophy and are normal in echote xture. There is no hydronephrosis. Ascites: There is trace perihepatic ascites. IMPRESSION: 1. The liver is enlarged and heterogeneous. Nodularity of the surface contour is consistent with cirr hotic change. 2. Trace perihepatic ascites. 3. Status post cholecystectomy. ACT 112: Negative or not required by law. Electronically signed by: Ho Denny M.D. 02/23/2020 7:34 PM
--- NOTE | 2020-02-23 20:58 | Hospitalist Progress Note ---
Date of Service February 23, 2020 Assessment & Plan (1) Hepatic encephalopathy: elevated ammonia in the 60s at presentation. lactulose given yesterday. gave additional lactulose today. still with confusion, asterixis, etc. cont lactulose daily. RUQ u/s obtained - liver is indeed cirrhotic appearing - see below. repeat ammonia level wnl today. (2) Cirrhosis: CHANG? other? no h/o prior etoh. HepC neg. Check HepBsAg. with hepatic encephalopathy - treating such. is on chronic diuretics thus he is compensated. will need GI f/u post-d/c for this. aware of this diagnosis. (3) Acute metabolic encephalopathy: 2nd hyperammonemia, UTI, etc. Treat components. Supportive care. (4) Urinary tract infection: Possible prostatitis/urinary tract infection- 2nd strep species Cont ceftriaxone 2 g IV daily May need to change this if enterococcus (5) Acute kidney injury superimposed on chronic kidney disease: Creatinine 3.20 upon admission. Cont to Hold diuretics. Gently rehydrate with normal saline. BMP am. Baseline Cr about 2 (Stage 3 CKD). (6) Chronic diastolic congestive heart failure: Hold furosemide volume depleted (7) Hyperlipidemia: Continue gemfibrozil 600 mg every morning (8) Diabetes: Hold glipizide cont lantus add novolog for correction & carb coverage (9) Mechanical heart valve present: AV INR goal 2.5 to 3.5 mechanical (10) Hypertension: (11) Gout: Continue allopurinol 300mg daily for prophylaxis (12) GERD (gastroesophageal reflux disease): Continue pantoprazole 40 mg daily (13) Morbid obesity with BMI of 40.0-44.9, adult: BMI 43 (14) Unilateral AKA: left performed 2014 does not use prosthesis uses power chair at home (15) DVT prophylaxis: coumadin updated , Mely, extensively by phone this evening Admission and Anticipated Discharge Date Admission Date: February 22, 2020 Subjective tele stable overnight. during the visit patient reports feeling somewhat better. a little more awake today. still tired however. when I spoke with she reports he is still very confused and "slurry." pt states he had AKA in 2014 of LLE. does not use a prosthesis. uses power chair at home. denies cough/dyspnea. denies h/o hepatitis or heavy etoh use. Review of Systems Constitutional: + fatigue and + weakness; no fever, no chills and no body aches Physical Exam Constitutional: + obese and + altered mental status; no acute distress ENMT: external ear and nose normal, oropharynx normal Respiratory: normal respiratory effort, lungs clear to auscultation Cardiovascular: Rate/Rhythm: regular rate and + irregularly irregular Heart Sounds: normal S1 and normal S2; no murmur Vessels: posterior tibial pulses present (right leg ) and dorsalis pedis pulses present (right leg ); no JVD Extremities: + edema (trace RLE ) mechanical valve closure sound heard all over chest Gastrointestinal (Abdomen): normal bowel sounds, soft, nontender, no hepatosplenomegaly Musculoskeletal: left AKA Skin: stasis changes right vázquez Neurologic: Motor/Sensory: + asterixis Psychiatric: Orientation: alert, oriented to person and oriented to place; + not oriented to time Results & Data Results & Data ([facility]) Vital Signs (Past 12 Hours) Vital Signs Temp Pulse Pulse Resp BP Pulse Ox 02/23/20 20:00 36.7 C 81 16 120/66 98 02/23/20 16:17 72 02/23/20 15:16 36.4 C L 71 20 110/63 94 02/23/20 12:02 36.9 C 90 16 124/60 Laboratory Results Laboratory Results - last 24 hr 02/22/20 02/23/20 02/23/20 23:46 07:05 07:12 Peripher Smr Path Cons PT 31.6 H INR 3.2 H Sodium Potassium Chloride Carbon Dioxide Anion Gap BUN Creatinine Est Cr Clr Drug Dosing Est GFR ( Amer) Est GFR (Non-Af Amer) BUN/Creatinine Ratio Glucose POC Glucose 129 H 117 H Calcium Total Bilirubin AST ALT Alkaline Phosphatase Ammonia Total Protein Albumin Globulin Albumin/Globulin Ratio Vitamin B12 Folate 02/23/20 02/23/20 02/23/20 09:47 09:47 09:47 Peripher Smr Path Cons PT INR Sodium 137 Potassium 3.0 L D Chloride 96 L Carbon Dioxide 37 H Anion Gap 4.0 BUN 91 H Creatinine 2.72 H D Est Cr Clr Drug Dosing 32.9 Est GFR ( Amer) 25.3 Est GFR (Non-Af Amer) 21.9 BUN/Creatinine Ratio 33.4 H Glucose 117 H POC Glucose Calcium 9.2 Total Bilirubin 3.0 H AST 18 ALT 13 Alkaline Phosphatase 133 H Ammonia 32.0 Total Protein 8.3 H Albumin 3.0 L Globulin 5.3 H Albumin/Globulin Ratio 0.6 L Vitamin B12 972 Folate 12.20 02/23/20 02/23/20 02/23/20 09:48 11:07 16:12 Peripher Smr Path Cons PT INR Sodium Potassium Chloride Carbon Dioxide Anion Gap BUN Creatinine Est Cr Clr Drug Dosing Est GFR ( Amer) Est GFR (Non-Af Amer) BUN/Creatinine Ratio Glucose POC Glucose 286 H 150 H Calcium Total Bilirubin AST ALT Alkaline Phosphatase Ammonia Total Protein Albumin Globulin Albumin/Globulin Ratio Vitamin B12 Folate 02/23/20 20:36 Peripher Smr Path Cons PT INR Sodium Potassium Chloride Carbon Dioxide Anion Gap BUN Creatinine Est Cr Clr Drug Dosing Est GFR ( Amer) Est GFR (Non-Af Amer) BUN/Creatinine Ratio Glucose POC Glucose 148 H Calcium Total Bilirubin AST ALT Alkaline Phosphatase Ammonia Total Protein Albumin Globulin Albumin/Globulin Ratio Vitamin B12 Folate urine cx - strep species PG Care Time/CCT Total # of Minutes Spent Total Time Spent with Patient: Total time spent is greater than 50% in coordination of care (as documented) at patient's floor/unit and/or counseling patient: Coding Level of Care Code 25905 Subseq Hosp Care Lvl 3 Diagnoses Hepatic encephalopathy K72.90 Cirrhosis K74.60; R18.8 Hepatic cirrhosis type: unspecified hepatic cirrhosis Ascites presence: with ascites Acute metabolic encephalopathy G93.41 Urinary tract infection N30.01 Hematuria presence: with hematuria Urinary tract infection type: acute cystitis Acute kidney injury superimposed on chronic kidney disease N17.9; N18.9 Chronic diastolic congestive heart failure I50.32 Hyperlipidemia E78.5 Hyperlipidemia type: unspecified Diabetes E11.42; Z79.4 Diabetes mellitus complication detail: with polyneuropathy Diabetes mellitus complication status: with neurologic complications Diabetes mellitus middle or intermediate school principal insulin use: with middle or intermediate school principal use Diabetes mellitus type: type 2 Mechanical heart valve present Z95.2 Hypertension I10 Hypertension type: essential hypertension Gout M10.9 Chronicity: unspecified Gout etiology: unspecified cause Gout site: unspecified site GERD (gastroesophageal reflux disease) K21.9 Esophagitis presence: esophagitis presence not specified Morbid obesity with BMI of 40.0-44.9, adult E66.01; Z68.41 Unilateral AKA S78.119A DVT prophylaxis Z29.9 (1) Urinary tract infection Hematuria presence: with hematuria Urinary tract infection type: acute cystitis Qualified Code(s): N30.01 - Acute cystitis with hematuria (2) Diabetes Diabetes mellitus complication detail: with polyneuropathy Diabetes mellitus complication status: with neurologic complications Diabetes mellitus middle or intermediate school principal insulin use: with middle or intermediate school principal use Diabetes mellitus type: type 2 Qualified Code(s): E11.42 - Type 2 diabetes mellitus with diabetic polyneuropathy; Z79.4 - [facility] (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 insulin (3) Gout Chronicity: unspecified Gout etiology: unspecified cause Gout site: unspecified site Qualified Code(s): M10.9 - Gout, unspecified (4) Hyperlipidemia Hyperlipidemia type: unspecified Qualified Code(s): E78.5 - Hyperlipidemia, unspecified (5) GERD (gastroesophageal reflux disease) Esophagitis presence: esophagitis presence not specified Qualified Code(s): K21.9 - Gastro-esophageal reflux disease without esophagitis (6) Hypertension Hypertension type: essential hypertension Qualified Code(s): I10 - Essential (primary) hypertension (7) Cirrhosis Hepatic cirrhosis type: unspecified hepatic cirrhosis Ascites presence: with ascites Qualified Code(s): K74.60 - Unspecified cirrhosis of liver; R18.8 - Other ascites
[2020-02-23] MEDS: ACETAMINOPHEN 325 MG TAB PO PRN (22:00)
[2020-02-23] MEDS: cefTRIAXone SODIUM 2,000 MG in DEXTROSE 5% 50 ML IV SCH (22:33)
[2020-02-24] MEDS: LEVOTHYROXINE SODIUM 50 MCG TABLET PO SCH (05:01)
[2020-02-24 07:05] LABS: Hematocrit (blood only) 35.8 % (42-52); Mean Corpuscular Hemoglobin 30.9 pg (25-34); Mean Corpuscular Hgb Conc 30.7 g/dL (32-36); Mean Corpuscular Volume 100.6 fL (80-100); Mean Platelet Volume 12.3 fL (7.4-10.4); Platelet Count 509 K/uL (130-400); RDW Coefficient of Variation 19.6 % (11.5-14.5); RDW Standard Deviation 71.5 fL (36.4-46.3); Red Blood Count 3.56 M/uL (4.7-6.1)
[2020-02-24 07:17] LABS: Prothrombin Time 30.2 Seconds (9.0-12.0)
[2020-02-24 07:39] LABS: BUN Creatinine Ratio 35.5 (10-20); Creatinine Clr Calc Pharmacy 35.7 ml/min; Est GFR (African American) 27.9; Est GFR (Non-African American) 24.1; Potassium 3.4 mmol/L (3.5-5.1)
[2020-02-24] MEDS: allopurinoL 300 MG TAB PO SCH (08:35)
[2020-02-24] MEDS: POTASSIUM CHLORIDE CRTAB 20 MEQ TABCR PO SCH ×3 (08:35→19:59)
[2020-02-24] MEDS: ASPIRIN 81 MG ECTAB PO SCH (08:36)
[2020-02-24] MEDS: PANTOprazole 40 MG TAB PO SCH (08:36)
[2020-02-24] MEDS: METOPROLOL TARTRATE 100 MG TAB PO SCH ×2 (08:37→19:59)
[2020-02-24] MEDS: gemfibroziL 600 MG TAB PO SCH (08:37)
[2020-02-24] MEDS: LACTULOSE SYRUP 20 GM/30 ML UDC PO SCH (08:38)
[2020-02-24] MEDS: PREGABALIN 50 MG CAP PO SCH ×2 (08:38→19:58)
[2020-02-24] MEDS: INSULIN ASPART 100 UNITS/ML 3 ML PEN SC SCH ×4 (08:40→21:04)
[2020-02-24] MEDS: SODIUM CHLORIDE 0.9% 1000ML 1,000 ML IV SCH (08:41)
[2020-02-24] MEDS: AMPICILLIN/SULBACTAM SOD 3,000 MG in 0.9 % SODIUM CHLORIDE 100 ML IV SCH ×2 (14:01→19:53)
[2020-02-24] MEDS: WARFARIN SOD 2.5 MG TAB PO SCH (17:12)
--- NOTE | 2020-02-24 20:55 | Hospitalist Progress Note ---
Date of Service February 24, 2020 Assessment & Plan (1) Hepatic encephalopathy: elevated ammonia in the 60s at presentation. still with sleepiness, asterixis, etc. cont lactulose daily. some of the sleepiness could be due to untreated UTI. RUQ u/s obtained - liver is indeed cirrhotic appearing - see below. (2) Cirrhosis: CHANG? leading diagnosis candidate. other? no h/o prior etoh. HepC neg. HepBsAg negative. with hepatic encephalopathy - treating such. is on chronic diuretics thus he is compensated from volume standpoint. will need GI f/u post-d/c for this. aware of this diagnosis. (3) Acute metabolic encephalopathy: 2nd hyperammonemia, UTI, etc. Treating all components. Supportive care. gradually improving. (4) Urinary tract infection: Possible prostatitis/urinary tract infection- 2nd enterococcus STOP ceftriaxone 2 g IV daily - not effective against enterococcus CHANGE to unasyn IV today is really the first day of effective Rx needs JAMES to r/o prostatitis before d/c and/or PSA check (5) Acute kidney injury superimposed on chronic kidney disease: Creatinine 3.20 upon admission. 2.5 today. Cont to Hold diuretics. Gently rehydrate with normal saline. BMP am. Baseline Cr about 2 (Stage 3 CKD). (6) Chronic diastolic congestive heart failure: Hold furosemide volume depleted (7) Hyperlipidemia: Continue gemfibrozil 600 mg every morning (8) Diabetes: Hold glipizide cont lantus cont novolog for correction & carb coverage adjust meds (9) Mechanical heart valve present: AV INR goal 2.5 to 3.5 mechanical INR therapeutic today cont coumadin INR am (10) Hypertension: See above (11) Gout: Continue allopurinol 300mg daily for prophylaxis (12) GERD (gastroesophageal reflux disease): Continue pantoprazole 40 mg daily (13) Morbid obesity with BMI of 40.0-44.9, adult: BMI 43 (14) Unilateral AKA: left performed 2014 does not use prosthesis uses power chair at home (15) DVT prophylaxis: coumadin updated , Mely, extensively by phone on 02/22 and 02/23 she asked if he will need rehab PT, OT evals pending Admission and Anticipated Discharge Date Admission Date: February 22, 2020 Subjective tele stable overnight. patient sleeping upon arrival but easily woke up. states he does feel better than previous. not quite back to baseline but getting there. eating improving. did know he was in the hospital, that it was 2019, and we had the election recently. denied new complaints. Review of Systems Constitutional: + fatigue; no fever and no chills Respiratory: no cough and no dyspnea Cardiovascular: no chest pain and no orthopnea Gastrointestinal: no abdominal pain, no nausea and no vomiting Physical Exam Constitutional: + obese; no acute distress and no altered mental status ENMT: external ear and nose normal, oropharynx normal Respiratory: normal respiratory effort, lungs clear to auscultation Cardiovascular: Rate/Rhythm: regular rate and + irregularly irregular Heart Sounds: normal S1 and normal S2; no murmur Vessels: posterior tibial pulses present (right leg ) and dorsalis pedis pulses present (right leg ); no JVD Extremities: + edema (trace RLE ) Gastrointestinal (Abdomen): normal bowel sounds, soft, nontender, no hepatosplenomegaly Musculoskeletal: left AKA Skin: stasis changes right vázquez Neurologic: Motor/Sensory: + asterixis Psychiatric: Orientation: alert, oriented to person, oriented to place and oriented to time Results & Data Results & Data ([facility]) Vital Signs (Past 12 Hours) Vital Signs Temp Pulse Pulse Resp BP Pulse Ox 02/24/20 19:54 36.4 C L 83 20 108/60 95 02/24/20 16:25 36.4 C L 84 121/76 97 02/24/20 15:08 75 02/24/20 11:45 37.0 C 84 16 133/68 93 Laboratory Results Laboratory Results - last 24 hr 02/24/20 02/24/20 02/24/20 06:37 06:37 06:37 WBC 12.70 H RBC 3.56 L Hgb 11.0 L Hct 35.8 L MCV 100.6 H MCH 30.9 MCHC 30.7 L RDW Std Deviation 71.5 H RDW Coeff of Jose 19.6 H Plt Count 509 H MPV 12.3 H PT 30.2 H INR 3.0 H Sodium 136 Potassium 3.4 L Chloride 98 Carbon Dioxide 32 Anion Gap 6.0 BUN 89 H Creatinine 2.51 H Est Cr Clr Drug Dosing 35.7 Est GFR ( Amer) 27.9 Est GFR (Non-Af Amer) 24.1 BUN/Creatinine Ratio 35.5 H Glucose 109 H POC Glucose Calcium 9.0 Hep Bs Antigen 02/24/20 02/24/20 02/24/20 06:37 07:46 10:55 WBC RBC Hgb Hct MCV MCH MCHC RDW Std Deviation RDW Coeff of Jose Plt Count MPV PT INR Sodium Potassium Chloride Carbon Dioxide Anion Gap BUN Creatinine Est Cr Clr Drug Dosing Est GFR ( Amer) Est GFR (Non-Af Amer) BUN/Creatinine Ratio Glucose POC Glucose 117 H 282 H Calcium Hep Bs Antigen Neg 02/24/20 02/24/20 16:35 20:37 WBC RBC Hgb Hct MCV MCH MCHC RDW Std Deviation RDW Coeff of Jose Plt Count MPV PT INR Sodium Potassium Chloride Carbon Dioxide Anion Gap BUN Creatinine Est Cr Clr Drug Dosing Est GFR ( Amer) Est GFR (Non-Af Amer) BUN/Creatinine Ratio Glucose POC Glucose 119 H 157 H Calcium Hep Bs Antigen urine cx - pansensitive enterococcus blood cx's neg PG Care Time/CCT Total # of Minutes Spent Total Time Spent with Patient: Total time spent is greater than 50% in co ordination of care (as documented) at patient's floor/unit and/or counseling patient: Coding Level of Care Code 34030 Subseq Hosp Care Lvl 3 Diagnoses Hepatic encephalopathy K72.90 Cirrhosis K74.60; R18.8 Ascites presence: with ascites Hepatic cirrhosis type: unspecified hepatic cirrhosis Acute metabolic encephalopathy G93.41 Urinary tract infection N30.01 Hematuria presence: with hematuria Urinary tract infection type: acute cystitis Acute kidney injury superimposed on chronic kidney disease N17.9; N18.9 Chronic diastolic congestive heart failure I50.32 Hyperlipidemia E78.5 Hyperlipidemia type: unspecified Diabetes E11.42; Z79.4 Diabetes mellitus complication detail: with polyneuropathy Diabetes mellitus complication status: with neurologic complications Diabetes mellitus middle or intermediate school principal insulin use: with middle or intermediate school principal use Diabetes mellitus type: type 2 Mechanical heart valve present Z95.2 Hypertension I10 Hypertension type: essential hypertension Gout M10.9 Chronicity: unspecified Gout etiology: unspecified cause Gout site: unspecified site GERD (gastroesophageal reflux disease) K21.9 Esophagitis presence: esophagitis presence not specified Morbid obesity with BMI of 40.0-44.9, adult E66.01; Z68.41 Unilateral AKA S78.119A DVT prophylaxis Z29.9 (1) Urinary tract infection Hematuria presence: with hematuria Urinary tract infection type: acute cystitis Qualified Code(s): N30.01 - Acute cystitis with hematuria (2) Diabetes Diabetes mellitus complication detail: with polyneuropathy Diabetes mellitus complication status: with neurologic complications Diabetes mellitus snf insulin use: with snf use Diabetes mellitus type: type 2 Qualified Code(s): E11.42 - Type 2 diabetes mellitus with diabetic polyneuropathy; Z79.4 - snf (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 insulin (3) Gout Chronicity: unspecified Gout etiology: unspecified cause Gout site: unspecified site Qualified Code(s): M10.9 - Gout, unspecified (4) Hyperlipidemia Hyperlipidemia type: unspecified Qualified Code(s): E78.5 - Hyperlipidemia, unspecified (5) Cirrhosis Ascites presence: with ascites Hepatic cirrhosis type: unspecified hepatic cirrhosis Qualified Code(s): K74.60 - Unspecified cirrhosis of liver; R18.8 - Other ascites (6) GERD (gastroesophageal reflux disease) Esophagitis presence: esophagitis presence not specified Qualified Code(s): K21.9 - Gastro-esophageal reflux disease without esophagitis (7) Hypertension Hypertension type: essential hypertension Qualified Code(s): I10 - Essential (primary) hypertension
[2020-02-24] MEDS: INSULIN GLARGINE SOLOSTAR 100 UNITS/ML 3 ML PEN SQ SCH (21:04)
[2020-02-25] MEDS: SODIUM CHLORIDE 0.9% 1000ML 1,000 ML IV SCH ×2 (01:18→19:49)
[2020-02-25] MEDS: AMPICILLIN/SULBACTAM SOD 3,000 MG in 0.9 % SODIUM CHLORIDE 100 ML IV SCH ×4 (01:19→19:49)
[2020-02-25] MEDS: LEVOTHYROXINE SODIUM 50 MCG TABLET PO SCH (04:12)
[2020-02-25 06:14] LABS: Hematocrit (blood only) 34.7 % (42-52); Hemoglobin 10.8 g/dL (14.0-18.0); Mean Corpuscular Hemoglobin 31.6 pg (25-34); Mean Corpuscular Hgb Conc 31.1 g/dL (32-36); Mean Corpuscular Volume 101.5 fL (80-100); Mean Platelet Volume 12.4 fL (7.4-10.4); Platelet Count 535 K/uL (130-400); RDW Coefficient of Variation 19.9 % (11.5-14.5); RDW Standard Deviation 73.3 fL (36.4-46.3); Red Blood Count 3.42 M/uL (4.7-6.1); White Blood Count 14.42 K/uL (4.8-10.8)
[2020-02-25 06:25] LABS: INR 3.2 (0.9-1.1); Prothrombin Time 31.8 Seconds (9.0-12.0)
[2020-02-25 06:43] LABS: BUN Creatinine Ratio 36.1 (10-20); Calcium 9.4 mg/dl (8.5-10.1); Creatinine Clr Calc Pharmacy 38.5 ml/min; Est GFR (African American) 30.6; Est GFR (Non-African American) 26.4; Potassium 3.8 mmol/L (3.5-5.1)
[2020-02-25] MEDS: INSULIN ASPART 100 UNITS/ML 3 ML PEN SC SCH ×4 (09:15→21:00)
[2020-02-25] MEDS: LACTULOSE SYRUP 20 GM/30 ML UDC PO SCH (09:19)
[2020-02-25] MEDS: METOPROLOL TARTRATE 100 MG TAB PO SCH ×2 (09:19→20:04)
[2020-02-25] MEDS: ASPIRIN 81 MG ECTAB PO SCH (09:19)
[2020-02-25] MEDS: gemfibroziL 600 MG TAB PO SCH (09:20)
[2020-02-25] MEDS: POTASSIUM CHLORIDE CRTAB 20 MEQ TABCR PO SCH ×3 (09:20→20:04)
[2020-02-25] MEDS: PANTOprazole 40 MG TAB PO SCH (09:20)
[2020-02-25] MEDS: PREGABALIN 50 MG CAP PO SCH ×2 (09:22→20:04)
[2020-02-25] MEDS: allopurinoL 300 MG TAB PO SCH (09:30)
[2020-02-25] MEDS: ACETAMINOPHEN 325 MG TAB PO PRN (12:04)
--- NOTE | 2020-02-25 12:24 | Hospitalist Progress Note ---
Date of Service February 25, 2020 Assessment & Plan (1) Hepatic encephalopathy: elevated ammonia in the 60s at presentation, WNL s/p lactulose dosing still with sleepiness, asterixis, etc but improving cont lactulose daily. some of the sleepiness could be due to untreated UTI. RUQ u/s obtained - liver is indeed cirrhotic appearing - see below. (2) Cirrhosis: CHANG? leading diagnosis candidate. other? no h/o prior etoh. HepC neg. HepBsAg negative. with hepatic encephalopathy - treating such. is on chronic diuretics thus he is compensated from volume standpoint. will need GI f/u post-d/c for this. aware of this diagnosis. (3) Acute metabolic encephalopathy: 2nd hyperammonemia, UTI, etc. Treating all components. Supportive care. gradually improving. (4) Urinary tract infection: Possible prostatitis/urinary tract infection- 2nd enterococcus STOP ceftriaxone 2 g IV daily on 02/23 - not effective against enterococcus CHANGE to unasyn IV on 02/23--consider as first day of dosing given cx results Blood cx neg on admission (5) Acute kidney injury superimposed on chronic kidney disease: Creatinine 3.20 upon admission, improving but not at baseline yet Cont to Hold diuretics. Gently rehydrate with normal saline. BMP am. Baseline Cr about 2 (Stage 3 CKD). (6) Chronic diastolic congestive heart failure: Hold furosemide volume depleted (7) Hyperlipidemia: Continue gemfibrozil 600 mg every morning (8) Diabetes: Hold glipizide cont lantus cont novolog for correction & carb coverage adjust meds (9) Mechanical heart valve present: AV INR goal 2.5 to 3.5 mechanical INR therapeutic cont coumadin INR am (10) Hypertension: See above (11) Gout: Continue allopurinol 300mg daily for prophylaxis (12) GERD (gastroesophageal reflux disease): Continue pantoprazole 40 mg daily (13) Morbid obesity with BMI of 40.0-44.9, adult: BMI 43 (14) Unilateral AKA: left performed 2014 does not use prosthesis uses power chair at home (15) DVT prophylaxis: coumadin PT, OT evals pending Admission and Anticipated Discharge Date Admission Date: February 22, 2020 Subjective Pt states he feels overall improved, but still with weakness. He states he is able to use his UE overall, but they are still a bit shaky at times. He feels the most weakness in his LE and states that he feels like they won't hold him when his getting OOB. Tolerating PO without issue. Pt denies fever, SOB, chest pain, abd pain, n/v/c/d, LE pain or swelling. Review of Systems Review of Systems: Pertinent positives and negatives reviewed in HPI--all others negative Physical Exam Constitutional: WD/WN, vitals as above Eyes: normal visual hernandez by confrontation and + anicteric sclerae Neck: normal visual inspection and trachea midline Respiratory: normal respiratory effort, lungs clear to auscultation Cardiovascular: Rate/Rhythm: regular rate; + abnormal rhythm Extremities: + edema (trace) Gastrointestinal (Abdomen): Inspection/Auscultation: abdomen not distended Percussion/Palpation: abdomen soft; abdomen nontender Musculoskeletal: Head/Neck/Chest: normocephalic and head atraumatic peripheral pulses intact Skin: no rashes, warm and dry Neurologic: awake; not confused Speech / Cognition: normal speech Psychiatric: A+Ox3, euthymic affect Results & Data Results & Data ([facility]) Vital Signs (Past 12 Hours) Vital Signs Temp Pulse Pulse Resp BP BP Pulse Ox 02/25/20 11:53 36.5 C 76 16 118/64 95 02/25/20 09:00 84 02/25/20 06:57 36.4 C L 80 18 126/73 95 02/25/20 04:02 36.9 C 79 18 131/81 92 02/25/20 00:19 36.6 C 76 18 125/69 96 PG Care Time/CCT Total # of Minutes Spent Total Time Spent with Patient: Total time spent is greater than 50% in coordination of care (as documented) at patient's floor/unit and/or counseling patient: Coding Level of Care Code 15381 Subseq Hosp Care Lvl 3 Diagnoses Hepatic encephalopathy K72.90 Cirrhosis K74.60; R18.8 Hepatic cirrhosis type: unspecified hepatic cirrhosis Ascites presence: with ascites Acute metabolic encephalopathy G93.41 Urinary tract infection N30.01 Hematuria presence: with hematuria Urinary tract infection type: acute cystitis Acute kidney injury superimposed on chronic kidney disease N17.9; N18.9 Chronic diastolic congestive heart failure I50.32 Hyperlipidemia E78.5 Hyperlipidemia type: unspecified Diabetes E11.42; Z79.4 Diabetes mellitus type: type 2 Diabetes mellitus clinical dietician insulin use: with clinical dietician use Diabetes mellitus complication status: with neurologic complications Diabetes mellitus complication detail: with polyneuropathy Mechanical heart valve present Z95.2 Hypertension I10 Hypertension type: essential hypertension Gout M10.9 Gout site: unspecified site Gout etiology: unspecified cause Chronicity: unspecified GERD (gastroesophageal reflux disease) K21.9 Esophagitis presence: esophagitis presence not specified Morbid obesity with BMI of 40.0-44.9, adult E66.01; Z68.41 Unilateral AKA S78.119A DVT prophylaxis Z29.9 (1) Cirrhosis Hepatic cirrhosis type: unspecified hepatic cirrhosis Ascites presence: with ascites Qualified Code(s): K74.60 - Unspecified cirrhosis of liver; R18.8 - Other ascites (2) Urinary tract infection Hematuria presence: with hematuria Urinary tract infection type: acute cystitis Qualified Code(s): N30.01 - Acute cystitis with hematuria (3) Hyperlipidemia Hyperlipidemia type: unspecified Qualified Code(s): E78.5 - Hyperlipidemia, unspecified (4) Diabetes Diabetes mellitus type: type 2 Diabetes mellitus clinical dietician insulin use: with clinical dietician use Diabetes mellitus complication status: with neurologic complications Diabetes mellitus complication detail: with polyneuropathy Qualified Code(s): E11.42 - Type 2 diabetes mellitus with diabetic polyneuropathy; Z79.4 - esl instructor (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 insulin (5) Hypertension Hypertension type: essential hypertension Qualified Code(s): I10 - Essential (primary) hypertension (6) Gout Gout site: unspecified site Gout etiology: unspecified cause Chronicity: unspecified Qualified Code(s): M10.9 - Gout, unspecified (7) GERD (gastroesophageal reflux disease) Esophagitis presence: esophagitis presence not specified Qualified Code(s): K21.9 - Gastro-esophageal reflux disease without esophagitis
[2020-02-25] MEDS: WARFARIN SOD 2.5 MG TAB PO SCH (15:29)
[2020-02-25] MEDS: INSULIN GLARGINE SOLOSTAR 100 UNITS/ML 3 ML PEN SQ SCH (21:02)
[2020-02-26] MEDS: ACETAMINOPHEN 325 MG TAB PO PRN (01:04)
[2020-02-26] MEDS: AMPICILLIN/SULBACTAM SOD 3,000 MG in 0.9 % SODIUM CHLORIDE 100 ML IV SCH ×4 (01:06→19:50)
[2020-02-26] MEDS: LEVOTHYROXINE SODIUM 50 MCG TABLET PO SCH (04:44)
[2020-02-26] MEDS: ASPIRIN 81 MG ECTAB PO SCH (08:18)
[2020-02-26] MEDS: PANTOprazole 40 MG TAB PO SCH (08:18)
[2020-02-26] MEDS: gemfibroziL 600 MG TAB PO SCH (08:18)
[2020-02-26] MEDS: LACTULOSE SYRUP 20 GM/30 ML UDC PO SCH (08:18)
[2020-02-26] MEDS: allopurinoL 300 MG TAB PO SCH (08:18)
[2020-02-26] MEDS: POTASSIUM CHLORIDE CRTAB 20 MEQ TABCR PO SCH ×3 (08:19→19:51)
[2020-02-26] MEDS: INSULIN ASPART 100 UNITS/ML 3 ML PEN SC SCH ×4 (08:20→20:29)
[2020-02-26] MEDS: PREGABALIN 50 MG CAP PO SCH ×2 (08:27→19:51)
[2020-02-26 08:35] LABS: Mean Corpuscular Hgb Conc 30.6 g/dL (32-36); Mean Platelet Volume 12.4 fL (7.4-10.4); Nucleated RBC # (auto) 0.06 K/uL (0-0); Nucleated RBC % (auto) 0.4 %; Platelet Count 550 K/uL (130-400)
[2020-02-26 08:59] LABS: BUN Creatinine Ratio 35.5 (10-20); Calcium 9.6 mg/dl (8.5-10.1); Creatinine Clr Calc Pharmacy 40.7 ml/min; Est GFR (Non-African American) 27.6; Magnesium 2.7 mg/dl (1.8-2.4); Phosphorus 3.5 mg/dl (2.5-4.9); Potassium 4.5 mmol/L (3.5-5.1)
[2020-02-26 09:00] LABS: ALC (manual) 1.78 K/uL (1.2-3.4); ANC (manual) 12.99 K/uL (1.4-6.5); Anisocytosis Present; Basophils # (manual) 0.14 K/uL (0-0.2); Basophils % (manual) 0.9 %; Eosinophils # (manual) 0.14 K/uL (0-0.5); Eosinophils % (manual) 0.9 %; Hematocrit (blood only) 37.9 % (42-52); Hemoglobin 11.6 g/dL (14.0-18.0); Lymphocytes # (manual) 1.78 K/uL (1.2-3.4); Lymphocytes % (manual) 11.1 %; Mean Corpuscular Hemoglobin 30.8 pg (25-34); Mean Corpuscular Volume 100.5 fL (80-100); Metamyelocytes # (manual) 0.14 K/uL (0-0); Metamyelocytes % (manual) 0.9 %; Monocytes # (manual) 0.54 K/uL (0.11-0.59); Monocytes % (manual) 3.4 %; Myelocytes # (manual) 0.27 K/uL (0-0); Myelocytes % (manual) 1.7 %; Neutrophils # (manual) 12.99 K/uL (1.4-6.5); Neutrophils % (manual) 81.1 %; Polychromasia 1+; RDW Coefficient of Variation 19.7 % (11.5-14.5); RDW Standard Deviation 71.2 fL (36.4-46.3); Red Blood Count 3.77 M/uL (4.7-6.1); Spherocytes 1+; White Blood Count 16.02 K/uL (4.8-10.8)
[2020-02-26] MEDS: METOPROLOL TARTRATE 100 MG TAB PO SCH ×2 (10:20→19:56)
[2020-02-26] MEDS: SODIUM CHLORIDE 0.9% 1000ML 1,000 ML IV SCH (10:22)
--- NOTE | 2020-02-26 15:08 | Hospitalist Progress Note ---
Date of Service February 26, 2020 Assessment & Plan (1) Hepatic encephalopathy: elevated ammonia in the 60s at presentation, WNL s/p lactulose dosing still with sleepiness, asterixis, etc but improving cont lactulose daily. some of the sleepiness could be due to untreated UTI. RUQ u/s obtained - liver is indeed cirrhotic appearing - see below. (2) Cirrhosis: CHANG? leading diagnosis candidate. other? no h/o prior etoh. HepC neg. HepBsAg negative. with hepatic encephalopathy - treating such. is on chronic diuretics thus he is compensated from volume standpoint. will need GI f/u post-d/c for this. aware of this diagnosis. (3) Acute metabolic encephalopathy: 2nd hyperammonemia, UTI, etc. Treating all components. Supportive care. gradually improving. (4) Urinary tract infection: Possible prostatitis/urinary tract infection- 2nd enterococcus STOP ceftriaxone 2 g IV daily on 02/23 - not effective against enterococcus CHANGE to unasyn IV on 02/23--consider as first day of dosing given cx results Blood cx neg on admission (5) Acute kidney injury superimposed on chronic kidney disease: Creatinine 3.20 upon admission, improving but not at baseline yet Cont to Hold diuretics. Gently rehydrate with normal saline. BMP am. Baseline Cr about 2 (Stage 3 CKD). (6) Chronic diastolic congestive heart failure: Hold furosemide volume depleted (7) Hyperlipidemia: Continue gemfibrozil 600 mg every morning (8) Diabetes: Hold glipizide cont lantus cont novolog for correction & carb coverage adjust meds (9) Mechanical heart valve present: AV INR goal 2.5 to 3.5 mechanical INR therapeutic cont coumadin INR am (10) Hypertension: See above (11) Gout: Continue allopurinol 300mg daily for prophylaxis (12) GERD (gastroesophageal reflux disease): Continue pantoprazole 40 mg daily (13) Morbid obesity with BMI of 40.0-44.9, adult: BMI 43 (14) Unilateral AKA: left performed 2014 does not use prosthesis uses power chair at home (15) DVT prophylaxis: coumadin PT recs for home, OT recs for SNF (16) Dysphagia: ST c/s pending Admission and Anticipated Discharge Date Admission Date: February 22, 2020 Subjective Pt feels his LE are more strong today, but still weak overall. Ongoing UE shaking with use. No breathing issues. Pt denies fever, chest pain, abd pain, n/v/c/d, LE pain. Ongoing LE swelling that is stable. Pt tells me today that he feels like he cannot swallow at times. He cites bread specifically as an example of something he tries to swallow but has to "bring it back up" because it gets stuck. Not feeling like he is choking/coughing with eating. Review of Systems Review of Systems: Pertinent positives and negatives reviewed in HPI--all others negative Physical Exam Constitutional: WD/WN, vitals as above Eyes: normal visual hernandez by confrontation and + anicteric sclerae Neck: normal visual inspection and trachea midline Respiratory: normal respiratory effort, lungs clear to auscultation Cardiovascular: Rate/Rhythm: regular rate; + abnormal rhythm Extremities: + edema (trace, pitting) Gastrointestinal (Abdomen): Inspection/Auscultation: abdomen not distended Percussion/Palpation: abdomen soft; abdomen nontender Musculoskeletal: Head/Neck/Chest: normocephalic and head atraumatic Skin: no rashes, warm and dry Neurologic: awake; not confused Speech / Cognition: normal speech Psychiatric: A+Ox3, euthymic affect Results & Data Results & Data ([facility]) Vital Signs (Past 12 Hours) Vital Signs Temp Pulse Pulse Resp BP BP Pulse Ox 02/26/20 14:53 91 H 02/26/20 12:07 36.7 C 81 20 125/64 95 02/26/20 10:07 82 02/26/20 07:06 36.6 C 81 20 115/62 94 02/26/20 03:37 36.7 C 79 18 123/72 95 PG Care Time/CCT Total # of Minutes Spent Total Time Spent with Patient: Total time spent is greater than 50% in coordination of care (as documented) at patient's floor/unit and/or counseling patient: Coding Level of Care Code 90450 Subseq Hosp Care Lvl 3 Diagnoses Hepatic encephalopathy K72.90 Cirrhosis K74.60; R18.8 Hepatic cirrhosis type: unspecified hepatic cirrhosis Ascites presence: with ascites Acute metabolic encephalopathy G93.41 Urinary tract infection N30.01 Hematuria presence: with hematuria Urinary tract infection type: acute cystitis Acute kidney injury superimposed on chronic kidney disease N17.9; N18.9 Chronic diastolic congestive heart failure I50.32 Hyperlipidemia E78.5 Hyperlipidemia type: unspecified Diabetes E11.42; Z79.4 Diabetes mellitus type: type 2 Diabetes mellitus intermediate frame tender insulin use: with assisted use Diabetes mellitus complication status: with neurologic complications Diabetes mellitus complication detail: with polyneuropathy Mechanical heart valve present Z95.2 Hypertension I10 Hypertension type: essential hypertension Gout M10.9 Gout site: unspecified site Gout etiology: unspecified cause Chronicity: unspecified GERD (gastroesophageal reflux disease) K21.9 Esophagitis presence: esophagitis presence not specified Morbid obesity with BMI of 40.0-44.9, adult E66.01; Z68.41 Unilateral AKA S78.119A DVT prophylaxis Z29.9 Dysphagia R13.10 (1) Cirrhosis Hepatic cirrhosis type: unspecified hepatic cirrhosis Ascites presence: with ascites Qualified Code(s): K74.60 - Unspecified cirrhosis of liver; R18.8 - Other ascites (2) Urinary tract infection Hematuria presence: with hematuria Urinary tract infection type: acute cystitis Qualified Code(s): N30.01 - Acute cystitis with hematuria (3) Hyperlipidemia Hyperlipidemia type: unspecified Qualified Code(s): E78.5 - Hyperlipidemia, unspecified (4) Diabetes Diabetes mellitus type: type 2 Diabetes mellitus intermediate frame tender insulin use: with intermediate frame tender use Diabetes mellitus complication status: with neurologic complications Diabetes mellitus complication detail: with polyneuropathy Qualified Code(s): E11.42 - Type 2 diabetes mellitus with diabetic polyneuropathy; Z79.4 - 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
[2020-02-26] MEDS: WARFARIN SOD 5 MG TAB PO SCH (15:58)
[2020-02-26] MEDS: INSULIN GLARGINE SOLOSTAR 100 UNITS/ML 3 ML PEN SQ SCH (20:29)
[2020-02-27] MEDS: SODIUM CHLORIDE 0.9% 1000ML 1,000 ML IV SCH (01:23)
[2020-02-27] MEDS: AMPICILLIN/SULBACTAM SOD 3,000 MG in 0.9 % SODIUM CHLORIDE 100 ML IV SCH ×4 (01:24→19:45)
[2020-02-27] MEDS: LEVOTHYROXINE SODIUM 50 MCG TABLET PO SCH (05:25)
[2020-02-27 07:48] LABS: Basophils # (auto) 0.04 K/uL (0-0.2); Basophils % (auto) 0.3 %; Eosinophils % (auto) 0.7 %; Hematocrit (blood only) 34.2 % (42-52); Hemoglobin 10.6 g/dL (14.0-18.0); Immature Granulocytes # (auto) 0.67 K/uL (0.00-0.02); Immature Granulocytes % (auto) 4.8 %; Lymphocytes % (auto) 15.6 %; Mean Corpuscular Hemoglobin 31.2 pg (25-34); Mean Corpuscular Volume 100.6 fL (80-100); Mean Platelet Volume 11.9 fL (7.4-10.4); Monocytes # (auto) 1.99 K/uL (0.11-0.59); Monocytes % (auto) 14.2 %; Neutrophils # (auto) 9.06 K/uL (1.4-6.5); Neutrophils % (auto) 64.4 %; Platelet Count 491 K/uL (130-400); RDW Coefficient of Variation 19.7 % (11.5-14.5); RDW Standard Deviation 71.9 fL (36.4-46.3); White Blood Count 14.06 K/uL (4.8-10.8)
[2020-02-27 08:15] LABS: INR 3.2 (0.9-1.1); Prothrombin Time 31.9 Seconds (9.0-12.0)
[2020-02-27 08:16] LABS: BUN Creatinine Ratio 34.8 (10-20); Calcium 9.2 mg/dl (8.5-10.1); Creatinine Clr Calc Pharmacy 40.4 ml/min; Est GFR (African American) 31.5; Est GFR (Non-African American) 27.2; Potassium 4.2 mmol/L (3.5-5.1)
[2020-02-27] MEDS: METOPROLOL TARTRATE 100 MG TAB PO SCH ×2 (08:17→20:59)
[2020-02-27] MEDS: gemfibroziL 600 MG TAB PO SCH (08:17)
[2020-02-27] MEDS: allopurinoL 300 MG TAB PO SCH (08:17)
[2020-02-27] MEDS: PANTOprazole 40 MG TAB PO SCH (08:17)
[2020-02-27] MEDS: LACTULOSE SYRUP 20 GM/30 ML UDC PO SCH ×2 (08:17→20:59)
[2020-02-27] MEDS: POTASSIUM CHLORIDE CRTAB 20 MEQ TABCR PO SCH ×3 (08:17→20:58)
[2020-02-27] MEDS: ASPIRIN 81 MG ECTAB PO SCH (08:17)
[2020-02-27] MEDS: PREGABALIN 50 MG CAP PO SCH (08:17)
[2020-02-27] MEDS: INSULIN ASPART 100 UNITS/ML 3 ML PEN SC SCH ×4 (08:18→21:08)
--- NOTE | 2020-02-27 12:45 | Hospitalist Progress Note ---
Date of Service February 27, 2020 Assessment & Plan (1) Hepatic encephalopathy: ongoing. has lethargy, slurred speech, ongoing asterixis, and ammonia still mildly elevated. increase lactulose to 20gm TID. shoot for 3 BMs/day. check VBG - rule out hypercarbia. check lactate and procal - r/o sepsis. (2) Cirrhosis: CHANG? leading diagnosis candidate. other? no h/o prior etoh. HepC neg. HepBsAg negative. with hepatic encephalopathy - treating such. will need GI f/u post-d/c for this. aware of this diagnosis. (3) Acute diastolic (congestive) heart failure: acute/chronic. patient had been volume depleted - got IVF since admission. now volume overloaded. stop IVF. bumex 2mg IV x 1 now. follow response. (4) Acute metabolic encephalopathy: WORSE TODAY. 2nd hyperammonemia, UTI, etc. cannot rule out another process. would have expected better improvement since admission. CT chest - r/o pneumonia. Consider repeat COVID. CT abd/pelvis - r/o obstructing kidney stone, etc. Treating all components. Supportive care. of note - CT head and MRI brain neg at admission; no stroke, etc (5) Urinary tract infection: Possible prostatitis/urinary tract infection- 2nd enterococcus Cont unasyn IV CT abd/pelvis today needs JAMES to r/o prostatitis before d/c and/or PSA check (6) Acute kidney injury superimposed on chronic kidney disease: Creatinine 3.20 upon admission. 2.2 today. resolved. stop fluids. see above. (7) Hyperlipidemia: Continue gemfibrozil 600 mg every morning (8) Diabetes: Hold glipizide cont lantus cont novolog for correction & carb coverage adjust meds (9) Mechanical heart valve present: AV INR goal 2.5 to 3.5 mechanical INR therapeutic again today cont coumadin INR am (10) Hypertension: See above (11) Gout: Continue allopurinol 300mg daily for prophylaxis (12) GERD (gastroesophageal reflux disease): Continue pantoprazole 40 mg daily (13) Morbid obesity with BMI of 40.0-44.9, adult: BMI 45 (14) Unilateral AKA: left performed 2014 does not use prosthesis uses power chair at home (15) DVT prophylaxis: coumadin updated , Mely, extensively by phone on 02/22 and 02/23 and then again lawanda explained plan of care Admission and Anticipated Discharge Date Admission Date: February 22, 2020 Subjective patient VERY confused, lethargic during my visit. does not look well. in mid-sentence he fell asleep multiple times. staff report the morning has been like this. tele overnight - a.fib; rates 90s/100s. Review of Systems Review of Systems: Unobtainable due to reduced consciousness Physical Exam Constitutional: + acute distress (looks uncomfortable in some fashion; mild tachypnea noted; very lethargic), + morbidly obese and + altered mental status ENMT: external ear and nose normal, oropharynx normal Respiratory: + tachypneic Auscultation: + crackles (bases) Cardiovascular: Rate/Rhythm: regular rate and + irregularly irregular Heart Sounds: normal S1 and normal S2; no murmur Vessels: posterior tibial pulses present (right leg ) and dorsalis pedis pulses present (right leg ); no JVD Extremities: + edema (2+ RLE ) Gastrointestinal (Abdomen): normal bowel sounds, soft, nontender, no hepatosplenomegaly Musculoskeletal: AKA left leg Neurologic: Motor/Sensory: + asterixis Psychiatric: Orientation: + not alert and + not oriented x 3 Results & Data Results & Data ([facility]) Vital Signs (Past 12 Hours) Vital Signs Temp Pulse Pulse Resp BP Pulse Ox 02/27/20 11:32 37.2 C 99 H 20 101/51 L 90 02/27/20 07:44 37.2 C 103 H 18 115/70 91 02/27/20 07:25 88 02/27/20 03:36 36.7 C 98 H 17 105/63 91 Laboratory Results Laboratory Results - last 24 hr 02/26/20 02/26/20 02/27/20 16:22 20:15 07:17 WBC RBC Hgb Hct MCV MCH MCHC RDW Std Deviation RDW Coeff of Jose Plt Count MPV Immature Gran % (Auto) Neut % (Auto) Lymph % (Auto) Jefferson % (Auto) Eos % (Auto) Baso % (Auto) Neut # (Auto) Lymph # (Auto) Jefferson # (Auto) Eos # (Auto) Baso # (Auto) Immature Gran # (Auto) PT INR Sodium Potassium Chloride Carbon Dioxide Anion Gap BUN Creatinine Est Cr Clr Drug Dosing Est GFR ( Amer) Est GFR (Non-Af Amer) BUN/Creatinine Ratio Glucose POC Glucose 175 H 151 H 164 H Calcium Ammonia 02/27/20 02/27/20 02/27/20 07:18 07:18 07:18 WBC 14.06 H RBC 3.40 L Hgb 10.6 L Hct 34.2 L MCV 100.6 H MCH 31.2 MCHC 31.0 L RDW Std Deviation 71.9 H RDW Coeff of Jose 19.7 H Plt Count 491 H MPV 11.9 H Immature Gran % (Auto) 4.8 Neut % (Auto) 64.4 Lymph % (Auto) 15.6 Jefferson % (Auto) 14.2 Eos % (Auto) 0.7 Baso % (Auto) 0.3 Neut # (Auto) 9.06 H Lymph # (Auto) 2.20 Jefferson # (Auto) 1.99 H Eos # (Auto) 0.10 Baso # (Auto) 0.04 Immature Gran # (Auto) 0.67 H PT 31.9 H INR 3.2 H Sodium 138 Potassium 4.2 Chloride 103 Carbon Dioxide 27 Anion Gap 8.0 BUN 79 H Creatinine 2.27 H Est Cr Clr Drug Dosing 40.4 Est GFR ( Amer) 31.5 Est GFR (Non-Af Amer) 27.2 BUN/Creatinine Ratio 34.8 H Glucose 119 H POC Glucose Calcium 9.2 Ammonia 02/27/20 02/27/20 07:20 10:58 WBC RBC Hgb Hct MCV MCH MCHC RDW Std Deviation RDW Coeff of Jose Plt Count MPV Immature Gran % (Auto) Neut % (Auto) Lymph % (Auto) Jefferson % (Auto) Eos % (Auto) Baso % (Auto) Neut # (Auto) Lymph # (Auto) Jefferson # (Auto) Eos # (Auto) Baso # (Auto) Immature Gran # (Auto) PT INR Sodium Potassium Chloride Carbon Dioxide Anion Gap BUN Creatinine Est Cr Clr Drug Dosing Est GFR ( Amer) Est GFR (Non-Af Amer) BUN/Creatinine Ratio Glucose POC Glucose 143 H Calcium Ammonia 37.2 H PG Care Time/CCT Total # of Minutes Spent Total Time Spent with Patient: Total time spent is greater than 50% in coordination of care (as documented) at patient's floor/unit and/or counseling patient: Coding Level of Care Code 58050 Subs Hosp Care Lvl 3 Diagnoses Hepatic encephalopathy K72.90 Cirrhosis K74.60; R18.8 Ascites presence: with ascites Hepatic cirrhosis type: unspecified hepatic cirrhosis Acute diastolic (congestive) heart failure I50.31 Acute metabolic encephalopathy G93.41 Urinary tract infection N30.01 Hematuria presence: with hematuria Urinary tract infection type: acute cystitis Acute kidney injury superimposed on chronic kidney disease N17.9; N18.9 Hyperlipidemia E78.5 Hyperlipidemia type: unspecified Diabetes E11.42; Z79.4 Diabetes mellitus complication detail: with polyneuropathy Diabetes mellitus complication status: with neurologic complications Diabetes mellitus roasterman insulin use: with senior living use Diabetes mellitus type: type 2 Mechanical heart valve present Z95.2 Hypertension I10 Hypertension type: essential hypertension Gout M10.9 Chronicity: unspecified Gout etiology: unspecified cause Gout site: unspecified site GERD (gastroesophageal reflux disease) K21.9 Esophagitis presence: esophagitis presence not specified Morbid obesity with BMI of 40.0-44.9, adult E66.01; Z68.41 Unilateral AKA S78.119A DVT prophylaxis Z29.9 (1) Urinary tract infection Hematuria presence: with hematuria Urinary tract infection type: acute cystitis Qualified Code(s): N30.01 - Acute cystitis with hematuria (2) Diabetes Diabetes mellitus complication detail: with polyneuropathy Diabetes mellitus complication status: with neurologic complications Diabetes mellitus senior living insulin use: with senior living use Diabetes mellitus type: type 2 Qualified Code(s): E11.42 - Type 2 diabetes mellitus with diabetic polyneuropathy; 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 insulin (3) Gout Chronicity: unspecified Gout etiology: unspecified cause Gout site: unspecified site Qualified Code(s): M10.9 - Gout, unspecified (4) Hyperlipidemia Hyperlipidemia type: unspecified Qualified Code(s): E78.5 - Hyperlipidemia, unspecified (5) Cirrhosis Ascites presence: with ascites Hepatic cirrhosis type: unspecified hepatic cirrhosis Qualified Code(s): K74.60 - Unspecified cirrhosis of liver; R18.8 - Other ascites (6) GERD (gastroesophageal reflux disease) Esophagitis presence: esophagitis presence not specified Qualified Code(s): K21.9 - Gastro-esophageal reflux disease without esophagitis (7) Hypertension Hypertension type: essential hypertension Qualified Code(s): I10 - Essential (primary) hypertension
--- NOTE | 2020-02-27 13:07 | XRay Report ---
SINGLE VIEW CHEST CLINICAL HISTORY: Change in mental status FINDINGS: An AP, portable, upright chest radiograph is compared to study dated 02/22/2020 and correla armen with chest CT dated 05/28/2006. The patient is status post midline sternotomy. The heart is enlarg ed noting atherosclerotic calcification of the thoracic aorta. There is pulmonary vascular congestion . Bilateral airspace opacities suggest interstitial edema. No large pleural effusion or pneumothorax is seen. The skeletal structures are osteopenic. The bony thorax is grossly intact. IMPRESSION: 1. Cardiomegaly with evidence of congestive failure. 2. Bilateral airspace opacities likely represent interstitial edema. Correlate clinically for evidenc e of a superimposed infectious/inflammatory pneumonitis. ACT 112: Negative or not required by law. Electronically signed by: Ho Denny M.D. 02/27/2020 1:06 PM
[2020-02-27 13:18] LABS: Base Excess VBG 1.8 mEq/L; Oxygen Saturation VBG 91.6 %; pH VBG 7.43 (7.36-7.41)
[2020-02-27] MEDS ORDERED: BUMETANIDE 2 MG in SYRINGE 0 ML IV ONE (14:00)
[2020-02-27] MEDS ORDERED: LACTULOSE SYRUP 30 GM/45 ML UDP PO ONE (17:00)
[2020-02-27] MEDS: WARFARIN SOD 2.5 MG TAB PO SCH (19:39)
[2020-02-27] MEDS: INSULIN GLARGINE SOLOSTAR 100 UNITS/ML 3 ML PEN SQ SCH (21:00)
[2020-02-28] MEDS: AMPICILLIN/SULBACTAM SOD 3,000 MG in 0.9 % SODIUM CHLORIDE 100 ML IV SCH ×4 (02:08→19:50)
[2020-02-28] MEDS: LEVOTHYROXINE SODIUM 50 MCG TABLET PO SCH (02:08)
[2020-02-28 06:15] LABS: Hematocrit (blood only) 33.9 % (42-52); Hemoglobin 10.4 g/dL (14.0-18.0); Mean Corpuscular Hgb Conc 30.7 g/dL (32-36); Mean Corpuscular Volume 101.2 fL (80-100); Mean Platelet Volume 11.2 fL (7.4-10.4); Platelet Count 428 K/uL (130-400); RDW Coefficient of Variation 19.2 % (11.5-14.5); RDW Standard Deviation 71.6 fL (36.4-46.3); Red Blood Count 3.35 M/uL (4.7-6.1); White Blood Count 11.49 K/uL (4.8-10.8)
--- NOTE | 2020-02-28 06:37 | CT Scan Report ---
CT OF THE ABDOMEN AND PELVIS WITHOUT CONTRAST CLINICAL HISTORY: mental status changes, leukocytosis COMPARISON STUDY: CT of the abdomen and pelvis November 22, 2019 and abdominal ultrasound February 23, 2020. TECHNIQUE: Axial images of the abdomen and pelvis were obtained without IV contrast. Images were revi ewed in the axial, sagittal, and coronal planes. Automated exposure control was utilized for the mikaela dy. A dose lowering technique was utilized adhering to the principles of ALARA. FINDINGS: Please note that the chest CT will be reported separately. Evaluation is called was given l ack of contrast and artifact from body wall contacting the gantry. There is a trace right pleural eff usion. Small subcutaneous densities of the lower chest wall upper abdominal wall are new since prior exam. A small amount of abdominal and pelvic ascites is noted. There is anasarca. The liver is enlarg ed. Slight nodularity of the liver surface suggests underlying cirrhosis. Splenomegaly is noted. This is unchanged. No pneumatosis, free air or portal venous gas is present. There is no biliary ductal d ilatation status post cholecystectomy. Water attenuation left renal lesion favors a cyst although sub optimally assessed on this unenhanced examination. There is no hydronephrosis. Unenhanced images of t he adrenal glands and pancreas are unremarkable. There is no pancreatic ductal dilatation. There are multiple fat-containing ventral hernias. There is no evidence for a bowel obstruction. Colon is mildl y fluid-filled. A Fox balloon is present within the bladder. There is bladder wall thickening with adjacent fluid. No acute fracture or suspicious lesion is identified within visualized skeletal struc tures. Prominent bilateral iliac nodes are likely benign. There is no fluid collection to suggest an abscess. IMPRESSION: 1. Hepatosplenomegaly. Subtle nodularity of the liver surface suggests cirrhosis. Small amount of asc ites. Anasarca. 2. No bowel obstruction. Mildly fluid-filled colon could reflect a diarrheal state. 3. Fox balloon within the bladder. Bladder wall thickening which could be correlated with urinalysi s. Small amount of adjacent fluid. No hydronephrosis. 4. Exam compromised given lack of contrast and artifact from body wall contacting the gantry. ACT 112: Negative or not required by law. Electronically signed by: Yao Clement M.D. 02/28/2020 6:36 AM
[2020-02-28 06:39] LABS: Anisocytosis Present; Basophils # (auto) 0.06 K/uL (0-0.2); Basophils % (auto) 0.5 %; Eosinophils # (auto) 0.08 K/uL (0-0.5); Eosinophils % (auto) 0.7 %; Giant Platelets 1+; Immature Granulocytes # (auto) 0.59 K/uL (0.00-0.02); Immature Granulocytes % (auto) 5.1 %; Lymphocytes # (auto) 1.51 K/uL (1.2-3.4); Lymphocytes % (auto) 13.1 %; Monocytes # (auto) 1.64 K/uL (0.11-0.59); Monocytes % (auto) 14.3 %; Neutrophils # (auto) 7.61 K/uL (1.4-6.5); Neutrophils % (auto) 66.3 %; Polychromasia 1+; Spherocytes 1+
[2020-02-28 06:48] LABS: Albumin Level 2.5 gm/dl (3.4-5.0); BUN Creatinine Ratio 35.5 (10-20); Calcium 8.8 mg/dl (8.5-10.1); Creatinine Clr Calc Pharmacy 40.9 ml/min; Est GFR (African American) 32.2; Est GFR (Non-African American) 27.8; Potassium 3.8 mmol/L (3.5-5.1)
[2020-02-28 06:51] LABS: Albumin Globulin Ratio 0.5 (0.9-2); Bilirubin,Total 2.1 mg/dl (0.2-1); Total Protein 7.5 gm/dl (6.4-8.2)
--- NOTE | 2020-02-28 07:38 | CT Scan Report ---
CT OF THE CHEST WITHOUT IV CONTRAST CLINICAL HISTORY: hypoxia, dyspnea, eval pneumonia or edema COMPARISON STUDY: Chest CT May 28, 2006. Chest radiograph February 27, 2020. TECHNIQUE: Axial images of the chest were obtained without IV contrast. Images were reviewed in the axial, sagittal, and coronal planes. IV contrast was not administered for this examination. Automat ed exposure control was utilized for the study. A dose lowering technique was utilized adhering to t he principles of ALARA. FINDINGS: No enlarged axillary, mediastinal or hilar lymph nodes are noted. There is right-sided assembler motor vehicle ecomastia. There are multiple ill-defined subcutaneous hypodensities of the chest and abdominal [place] that measure up to 1.8 cm. Moderate cardiomegaly is noted. There is extensive coronary artery calcif ication. There are median sternotomy wires and prosthetic aortic valve. There is no pericardial effus ion. Trace right pleural effusion is noted. There is no pneumothorax. Subpleural opacities favor atel ectasis. There may be mild pulmonary edema. Visualized portions of the upper abdomen demonstrate susp ected cirrhosis. There is splenomegaly with a small amount of ascites. IMPRESSION: 1. No consolidation identified. 2. Suspected mild interstitial pulmonary edema. Trace right pleural effusion. 3. Moderate cardiomegaly and extensive coronary artery calcification. 4. Cirrhosis. Splenomegaly and a small amount of ascites. ACT 112: Negative or not required by law. Electronically signed by: Yao Clement M.D. 02/28/2020 7:36 AM
[2020-02-28] MEDS: INSULIN ASPART 100 UNITS/ML 3 ML PEN SC SCH ×4 (08:15→21:22)
[2020-02-28] MEDS ORDERED: BUMETANIDE 2 MG in SYRINGE 0 ML IV ONE (08:15)
[2020-02-28] MEDS: LACTULOSE SYRUP 20 GM/30 ML UDC PO SCH ×3 (08:24→19:50)
[2020-02-28] MEDS: POTASSIUM CHLORIDE CRTAB 20 MEQ TABCR PO SCH ×3 (08:24→19:51)
[2020-02-28] MEDS: PANTOprazole 40 MG TAB PO SCH (08:24)
[2020-02-28] MEDS: METOPROLOL TARTRATE 100 MG TAB PO SCH ×2 (08:24→19:51)
[2020-02-28] MEDS: gemfibroziL 600 MG TAB PO SCH (08:25)
[2020-02-28] MEDS: allopurinoL 300 MG TAB PO SCH (08:25)
[2020-02-28] MEDS: ASPIRIN 81 MG ECTAB PO SCH (08:26)
[2020-02-28] MEDS: WARFARIN SOD 5 MG TAB PO SCH (15:38)
[2020-02-28] MEDS: INSULIN GLARGINE SOLOSTAR 100 UNITS/ML 3 ML PEN SQ SCH (21:22)
--- NOTE | 2020-02-28 22:39 | Hospitalist Progress Note ---
Date of Service February 28, 2020 Assessment & Plan (1) Hepatic encephalopathy: clinically improved today. lethargy, slurred speech, asterixis - all improved. ammonia level wnl today. cont lactulose 20gm TID. shoot for 3 BMs/day. (2) Cirrhosis: CHANG? other? CHANG is leading diagnosis candidate. no h/o prior etoh. HepC neg. HepBsAg negative. hepatic encephalopathy - improved. will need GI f/u post-d/c for this. Cirrhosis is NEW DIAGNOSIS for him. counseled about this new issue for him. (3) Acute diastolic (congestive) heart failure: acute/chronic. I cannot rule out right-sided CHF but right ventricular windows were poor on echo. [id number] will give IV lasix again today. then, depending on volume status/labs tomorrow, resume lasix 80mg BID then. (4) Acute metabolic encephalopathy: IMPROVED. 2nd hyperammonemia and UTI. Treating both. Cannot rule out another process but no other source found (COVID neg x 2, CT chest/abd/pelvis negative, c diff negative, blood cx's negative, CT head negative, MRI brain negative, VBG w/o hypercarbia). Lyrica could cause sedation - will hold for now. (5) Urinary tract infection: 2nd enterococcus Cont unasyn IV CT abd/pelvis without obstructing stone, etc. needs JAMES to r/o prostatitis before d/c possibly switch to PO augmentin tomorrow blood cx's negative (6) Acute kidney injury superimposed on chronic kidney disease: Creatinine 3.20 upon admission. 2.2 today. resolved. stopped fluids. bmp am. (7) Hyperlipidemia: Continue gemfibrozil 600 mg every morning (8) Diabetes: Cont to hold glipizide cont lantus cont novolog for correction & carb coverage adjust meds (9) Mechanical heart valve present: Aortic valve echo this admission with normal gradient INR goal 2.5 to 3.5 INR therapeutic again today cont coumadin INR am (10) Hypertension: Cont metoprolol 100mg BID (11) Gout: Continue allopurinol 300mg daily for prophylaxis (12) GERD (gastroesophageal reflux disease): Continue pantoprazole 40 mg daily (13) Morbid obesity with BMI of 40.0-44.9, adult: BMI 45 (14) Unilateral AKA: left performed 2013 does not use prosthesis uses power chair at home (15) DVT prophylaxis: coumadin updated , Mely, extensively by phone on 02/26 and 02/27 explained plan of care dispo - [facility] at discharge?? Admission and Anticipated Discharge Date Admission Date: February 22, 2020 Subjective patient feeling much better today. when I came into the room he was awake, alert, and speech was normal. he voiced that he had better appetite and just overall wasn't as fatigued. breathing improved today. did c/o a little of dry mouth. denied pain in chest, abdomen, or any other location. tele overnight with rate-controlled a.fib. he also mentions feeling less shaky. Review of Systems Constitutional: no fever, no chills and no anorexia Respiratory: no cough and no dyspnea Cardiovascular: no chest pain Gastrointestinal: no abdominal pain Physical Exam Constitutional: + morbidly obese; no acute distress and no altered mental status looks much better today; alert, oriented ENMT: Mouth: + dry oral mucous membranes Respiratory: Auscultation: + crackles (bases) Cardiovascular: Rate/Rhythm: regular rate and + irregularly irregular Heart Sounds: normal S1, normal S2 and + click ([facility] valve closure sound); no murmur Vessels: posterior tibial pulses present (right leg ) and dorsalis pedis pulses present (right leg ); no JVD Extremities: + edema (2+ RLE ) Gastrointestinal (Abdomen): normal bowel sounds, soft, nontender, no hepatosplenomegaly Musculoskeletal: left AKA Neurologic: Motor/Sensory: + asterixis (but improved from prior exams ) Psychiatric: Orientation: alert and oriented x 3 Results & Data Results & Data ([facility]) Vital Signs (Past 12 Hours) Vital Signs Temp Pulse Resp BP BP Pulse Ox 02/28/20 19:08 36.4 C L 87 21 127/78 100 02/28/20 15:10 36.4 C L 89 20 119/68 98 02/28/20 11:15 36.5 C 89 18 142/87 H 96 Laboratory Results Laboratory Results - last 24 hr 02/28/20 02/28/20 02/28/20 06:07 06:07 06:07 WBC 11.49 H RBC 3.35 L Hgb 10.4 L Hct 33.9 L MCV 101.2 H MCH 31.0 MCHC 30.7 L RDW Std Deviation 71.6 H RDW Coeff of Jose 19.2 H Plt Count 428 H MPV 11.2 H Immature Gran % (Auto) 5.1 Neut % (Auto) 66.3 Lymph % (Auto) 13.1 [place] % (Auto) 14.3 Eos % (Auto) 0.7 Baso % (Auto) 0.5 Neut # (Auto) 7.61 H Lymph # (Auto) 1.51 [place] # (Auto) 1.64 H Eos # (Auto) 0.08 Baso # (Auto) 0.06 Immature Gran # (Auto) 0.59 H Giant Platelets 1+ Polychromasia 1+ Anisocytosis Present Spherocytes 1+ Sodium 139 Potassium 3.8 Chloride 103 Carbon Dioxide 30 Anion Gap 6.0 BUN 79 H Creatinine 2.23 H Est Cr Clr Drug Dosing 40.9 Est GFR ( Amer) 32.2 Est GFR (Non-Af Amer) 27.8 BUN/Creatinine Ratio 35.5 H Glucose 108 H POC Glucose Calcium 8.8 Total Bilirubin 2.1 H AST 31 ALT 17 Alkaline Phosphatase 124 H Ammonia 23.0 Total Protein 7.5 Albumin 2.5 L Globulin 5.0 H Albumin/Globulin Ratio 0.5 L Stl C. diff Tox B Gene COVID-19 Eval Order SARS-CoV-2, RNA, NAAT 02/28/20 02/28/20 02/28/20 07:46 09:05 09:05 WBC RBC Hgb Hct MCV MCH MCHC RDW Std Deviation RDW Coeff of Jose Plt Count MPV Immature Gran % (Auto) Neut % (Auto) Lymph % (Auto) [place] % (Auto) Eos % (Auto) Baso % (Auto) Neut # (Auto) Lymph # (Auto) [place] # (Auto) Eos # (Auto) Baso # (Auto) Immature Gran # (Auto) Giant Platelets Polychromasia Anisocytosis Spherocytes Sodium Potassium Chloride Carbon Dioxide Anion Gap BUN Creatinine Est Cr Clr Drug Dosing Est GFR ( Amer) Est GFR (Non-Af Amer) BUN/Creatinine Ratio Glucose POC Glucose 110 H Calcium Total Bilirubin AST ALT Alkaline Phosphatase Ammonia Total Protein Albumin Globulin Albumin/Globulin Ratio Stl C. diff Tox B Gene COVID-19 Eval [facility] SARS-CoV-2, RNA, NAAT NEGATIVE 02/28/20 02/28/20 02/28/20 11:34 14:35 16:20 WBC RBC Hgb Hct MCV MCH MCHC RDW Std Deviation RDW Coeff of Jose Plt Count MPV Immature Gran % (Auto) Neut % (Auto) Lymph % (Auto) [place] % (Auto) Eos % (Auto) Baso % (Auto) Neut # (Auto) Lymph # (Auto) [place] # (Auto) Eos # (Auto) Baso # (Auto) Immature Gran # (Auto) Giant Platelets Polychromasia Anisocytosis Spherocytes Sodium Potassium Chloride Carbon Dioxide Anion Gap BUN Creatinine Est Cr Clr Drug Dosing Est GFR ( Amer) Est GFR (Non-Af Amer) BUN/Creatinine Ratio Glucose POC Glucose 137 H 131 H Calcium Total Bilirubin AST ALT Alkaline Phosphatase Ammonia Total Protein Albumin Globulin Albumin/Globulin Ratio Stl C. diff Tox B Gene Negative Cdiff Gene COVID-19 Eval Order SARS-CoV-2, RNA, NAAT 02/28/20 21:18 WBC RBC Hgb Hct MCV MCH MCHC RDW Std Deviation RDW Coeff of Jose Plt Count MPV Immature Gran % (Auto) Neut % (Auto) Lymph % (Auto) [place] % (Auto) Eos % (Auto) Baso % (Auto) Neut # (Auto) Lymph # (Auto) [place] # (Auto) Eos # (Auto) Baso # (Auto) Immature Gran # (Auto) Giant Platelets Polychromasia Anisocytosis Spherocytes Sodium Potassium Chloride Carbon Dioxide Anion Gap BUN Creatinine Est Cr Clr Drug Dosing Est GFR ( Amer) Est GFR (Non-Af Amer) BUN/Creatinine Ratio Glucose POC Glucose 129 H Calcium Total Bilirubin AST ALT Alkaline Phosphatase Ammonia Total Protein Albumin Globulin Albumin/Globulin Ratio Stl C. diff Tox B Gene COVID-19 Eval Order SARS-CoV-2, RNA, NAAT PG Care Time/CCT Total # of Minutes Spent Total Time Spent with Patient: Total time spent is greater than 50% in co ordination of care (as documented) at patient's floor/unit and/or counseling patient: Coding Level of Care Code 37774 Subseq Hosp Care Lvl 3 Diagnoses Hepatic encephalopathy K72.90 Cirrhosis K74.60; R18.8 Ascites presence: with ascites Hepatic cirrhosis type: unspecified hepatic cirrhosis Acute diastolic (congestive) heart failure I50.31 Acute metabolic encephalopathy G93.41 Urinary tract infection N30.01 Hematuria presence: with hematuria Urinary tract infection type: acute cystitis Acute kidney injury superimposed on chronic kidney disease N17.9; N18.9 Hyperlipidemia E78.5 Hyperlipidemia type: unspecified Diabetes E11.42; Z79.4 Diabetes mellitus complication detail: with polyneuropathy Diabetes mellitus complication status: with neurologic complications Diabetes mellitus senior living insulin use: with senior living use Diabetes mellitus type: type 2 Mechanical heart valve present Z95.2 Hypertension I10 Hypertension type: essential hypertension Gout M10.9 Chronicity: unspecified Gout etiology: unspecified cause Gout site: unspecified site GERD (gastroesophageal reflux disease) K21.9 Esophagitis presence: esophagitis presence not specified Morbid obesity with BMI of 40.0-44.9, adult E66.01; Z68.41 Unilateral AKA S78.119A DVT prophylaxis Z29.9 (1) Urinary tract infection Hematuria presence: with hematuria Urinary tract infection type: acute cystitis Qualified Code(s): N30.01 - Acute cystitis with hematuria (2) Diabetes Diabetes mellitus complication detail: with polyneuropathy Diabetes mellitus complication status: with neurologic complications Diabetes mellitus senior living insulin use: with senior living use Diabetes mellitus type: type 2 Qualified Code(s): E11.42 - Type 2 diabetes mellitus with diabetic polyneuropathy; 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 (3) Gout Chronicity: unspecified Gout etiology: unspecified cause Gout site: unspecified site Qualified Code(s): M10.9 - Gout, unspecified (4) Hyperlipidemia Hyperlipidemia type: unspecified Qualified Code(s): E78.5 - Hyperlipidemia, unspecified (5) Cirrhosis Ascites presence: with ascites Hepatic cirrhosis type: unspecified hepatic cirrhosis Qualified Code(s): K74.60 - Unspecified cirrhosis of liver; R18.8 - Other ascites (6) GERD (gastroesophageal reflux disease) Esophagitis presence: esophagitis presence not specified Qualified Code(s): K21.9 - Gastro-esophageal reflux disease without esophagitis (7) Hypertension Hypertension type: essential hypertension Qualified Code(s): I10 - Essential (primary) hypertension
[2020-02-29] MEDS: AMPICILLIN/SULBACTAM SOD 3,000 MG in 0.9 % SODIUM CHLORIDE 100 ML IV SCH ×3 (01:17→14:23)
[2020-02-29] MEDS: LEVOTHYROXINE SODIUM 50 MCG TABLET PO SCH (04:23)
[2020-02-29 05:49] LABS: Hematocrit (blood only) 33.3 % (42-52); Hemoglobin 10.4 g/dL (14.0-18.0); Mean Corpuscular Hemoglobin 31.1 pg (25-34); Mean Corpuscular Hgb Conc 31.2 g/dL (32-36); Mean Corpuscular Volume 99.7 fL (80-100); Mean Platelet Volume 11.4 fL (7.4-10.4); Platelet Count 428 K/uL (130-400); RDW Coefficient of Variation 18.7 % (11.5-14.5); RDW Standard Deviation 67.8 fL (36.4-46.3); Red Blood Count 3.34 M/uL (4.7-6.1); White Blood Count 11.42 K/uL (4.8-10.8)
[2020-02-29 06:15] LABS: BUN Creatinine Ratio 32.8 (10-20); Calcium 8.6 mg/dl (8.5-10.1); Creatinine Clr Calc Pharmacy 39.8 ml/min; Est GFR (African American) 31.2; Est GFR (Non-African American) 26.9; Potassium 3.6 mmol/L (3.5-5.1)
[2020-02-29 06:31] LABS: INR 4.2 (0.9-1.1); Prothrombin Time 41.2 Seconds (9.0-12.0)
[2020-02-29] MEDS: METOPROLOL TARTRATE 100 MG TAB PO SCH ×2 (07:25→20:57)
[2020-02-29] MEDS: ASPIRIN 81 MG ECTAB PO SCH (07:26)
[2020-02-29] MEDS: POTASSIUM CHLORIDE CRTAB 20 MEQ TABCR PO SCH ×3 (07:26→20:57)
[2020-02-29] MEDS: allopurinoL 300 MG TAB PO SCH (07:26)
[2020-02-29] MEDS: PANTOprazole 40 MG TAB PO SCH (07:26)
[2020-02-29] MEDS: LACTULOSE SYRUP 20 GM/30 ML UDC PO SCH ×2 (07:27→11:48)
[2020-02-29] MEDS: gemfibroziL 600 MG TAB PO SCH (07:27)
[2020-02-29] MEDS: INSULIN ASPART 100 UNITS/ML 3 ML PEN SC SCH ×4 (07:59→20:55)
[2020-02-29] MEDS ORDERED: FUROSEMIDE 80 MG TAB PO ONE (17:13)
[2020-02-29] MEDS ORDERED: AMOXICILLIN/CLAVULANATE 875 MG TAB PO ONE (17:14)
[2020-02-29] MEDS: ADVANCED PROBIOTIC 1250 MG CAPSULE PO SCH (18:09)
--- NOTE | 2020-02-29 19:04 | Hospitalist Progress Note ---
Date of Service February 29, 2020 Assessment & Plan (1) Hepatic encephalopathy: improved/resolved. ammonia normalized. asterixis on exam gone. having numerous BMs - can cut lactulose back to 20gm BID. titrate for 3 BMs/day. 2nd to new-onset cirrhosis. (2) Cirrhosis: CHANG? leading diagnosis candidate. other? no h/o prior etoh. HepC neg. HepBsAg negative. with hepatic encephalopathy - treating such. see above. will need GI f/u post-d/c for this. aware of this diagnosis. (3) Acute diastolic (congestive) heart failure: acute/chronic. patient had been volume depleted - got IVF first few days of admission - developed volume overload. diuresed x 2 days. looks euvolemic today or close to such. resume normal diuretic regimen of lasix 80mg BID. (4) Acute metabolic encephalopathy: 2nd hyperammonemia, UTI. RESOLVING. CT head, MRI brain, COVID x 2, CT chest/abd/pelvis, VBG - all negative/normal for other etiologies. (5) Urinary tract infection: 2nd enterococcus Change IV unasyn to PO augmentin plan at least 7 days of IV/PO abx; today is day #[address] abd/pelvis without obstructing stone needs JAMES to r/o prostatitis before d/c (6) Acute kidney injury superimposed on chronic kidney disease: Creatinine 3.20 upon admission. 2.2 again today. resolved. BMP am. (7) Hyperlipidemia: Continue gemfibrozil 600 mg every morning (8) Diabetes: Hold glipizide cont lantus cont novolog for correction & carb coverage control adequate (9) Mechanical heart valve present: AV INR goal 2.5 to 3.5 mechanical INR supratherapeutic today - hold coumadin high INR likely due to concomitant antibiotics repeat INR am (10) Hypertension: (11) Gout: Continue allopurinol 300mg daily for prophylaxis (12) GERD (gastroesophageal reflux disease): Continue pantoprazole 40 mg daily (13) Morbid obesity with BMI of 40.0-44.9, adult: BMI 45 (14) Unilateral AKA: left performed 2014 does not use prosthesis uses power chair at home (15) Sleep disorder breathing: suspect he has ALECIA and/or OHS consider overnight oximetry study before discharge he states he has never had sleep study (16) DVT prophylaxis: coumadin updated , Mely, extensively by phone yesterday and today Mely wanting him to go to [facility] post-d/c patient slowly progressing Admission and Anticipated Discharge Date Admission Date: February 22, 2020 Subjective tele with rate controlled [place] pt sleeping upon my arrival easily awakens when he wakes he is initially groggy and slurs his speech because mouth is so dry after waking up and drinking some water speech clears he states he had mild nosebleed overnight; none since he is eating 100% of meals he knows it is 2019, that it is , and that he is at "[facility]" denies pain in any location staff report multiple BMs today including the last one that was "very large" Review of Systems Constitutional: + fatigue; no fever, no chills and no anorexia Respiratory: no cough and no dyspnea Cardiovascular: no chest pain Gastrointestinal: no abdominal pain, no nausea and no vomiting Physical Exam Constitutional: + morbidly obese; no acute distress and no altered mental status ENMT: external ear and nose normal, oropharynx normal Mouth: + dry oral mucous membranes Respiratory: no respiratory distress Auscultation: + crackles (bases- scant); no wheezes Cardiovascular: Rate/Rhythm: regular rate and + irregularly irregular Heart Sounds: normal S1 and normal S2; no murmur Vessels: posterior tibial pulses present (right leg ) and dorsalis pedis pulses present (right leg ); no JVD Extremities: + edema (2+ RLE ) Gastrointestinal (Abdomen): normal bowel sounds, soft, nontender, no hepatosplenomegaly Musculoskeletal: left aka Neurologic: Motor/Sensory: no asterixis (Resolved) Psychiatric: Orientation: alert and oriented x 3 Results & Data Results & Data ([facility]) Vital Signs (Past 12 Hours) Vital Signs Temp Pulse Pulse Resp BP BP Pulse Ox 02/29/20 15:25 36.8 C 89 19 123/71 95 02/29/20 12:02 36.6 C 88 19 114/75 90 02/29/20 07:33 36.9 C 83 20 118/77 99 Laboratory Results Laboratory Results - last 24 hr 02/28/20 02/29/20 02/29/20 21:18 05:33 05:33 WBC 11.42 H RBC 3.34 L Hgb 10.4 L Hct 33.3 L MCV 99.7 MCH 31.1 MCHC 31.2 L RDW Std Deviation 67.8 H RDW Coeff of Jose 18.7 H Plt Count 428 H MPV 11.4 H PT 41.2 H INR 4.2 H Sodium Potassium Chloride Carbon Dioxide Anion Gap BUN Creatinine Est Cr Clr Drug Dosing Est GFR ( Amer) Est GFR (Non-Af Amer) BUN/Creatinine Ratio Glucose POC Glucose 129 H Calcium 02/29/20 02/29/20 02/29/20 05:33 07:36 11:16 WBC RBC Hgb Hct MCV MCH MCHC RDW Std Deviation RDW Coeff of Jose Plt Count MPV PT INR Sodium 134 L Potassium 3.6 Chloride 98 Carbon Dioxide 32 Anion Gap 4.0 BUN 75 H Creatinine 2.29 H Est Cr Clr Drug Dosing 39.8 Est GFR ( Amer) 31.2 Est GFR (Non-Af Amer) 26.9 BUN/Creatinine Ratio 32.8 H Glucose 105 H POC Glucose 103 H 146 H Calcium 8.6 02/29/20 16:16 WBC RBC Hgb Hct MCV MCH MCHC RDW Std Deviation RDW Coeff of Jose Plt Count MPV PT INR Sodium Potassium Chloride Carbon Dioxide Anion Gap BUN Creatinine Est Cr Clr Drug Dosing Est GFR ( Amer) Est GFR (Non-Af Amer) BUN/Creatinine Ratio Glucose POC Glucose 153 H Calcium PG Care Time/CCT Total # of Minutes Spent Total Time Spent with Patient: Total time spent is greater than 50% in coordination of care (as documented) at patient's floor/unit and/or counseling patient: Coding Level of Care Code 03372 Subseq Hosp Care Lvl 3 Diagnoses Hepatic encephalopathy K72.90 Cirrhosis K74.60; R18.8 Ascites presence: with ascites Hepatic cirrhosis type: unspecified hepatic cirrhosis Acute diastolic (congestive) heart failure I50.31 Acute metabolic encephalopathy G93.41 Urinary tract infection N30.01 Hematuria presence: with hematuria Urinary tract infection type: acute cystitis Acute kidney injury superimposed on chronic kidney disease N17.9; N18.9 Hyperlipidemia E78.5 Hyperlipidemia type: unspecified Diabetes E11.42; Z79.4 Diabetes mellitus complication detail: with polyneuropathy Diabetes mellitus complication status: with neurologic complications Diabetes mellitus usp insulin use: with usp use Diabetes mellitus type: type 2 Mechanical heart valve present Z95.2 Hypertension I10 Hypertension type: essential hypertension Gout M10.9 Chronicity: unspecified Gout etiology: unspecified cause Gout site: unspecified site GERD (gastroesophageal reflux disease) K21.9 Esophagitis presence: esophagitis presence not specified Morbid obesity with BMI of 40.0-44.9, adult E66.01; Z68.41 Unilateral AKA S78.119A Sleep disorder breathing G47.30 DVT prophylaxis Z29.9 (1) Urinary tract infection Hematuria presence: with hematuria Urinary tract infection type: acute cystitis Qualified Code(s): N30.01 - Acute cystitis with hematuria (2) Diabetes Diabetes mellitus complication detail: with polyneuropathy Diabetes mellitus complication status: with neurologic complications Diabetes mellitus cardiac exercise physiologist insulin use: with cardiac exercise physiologist use Diabetes mellitus type: type 2 Qualified Code(s): E11.42 - Type 2 diabetes mellitus with diabetic polyneuropathy; Z79.4 - halfway (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 insulin (3) Gout Chronicity: unspecified Gout etiology: unspecified cause Gout site: unspecified site Qualified Code(s): M10.9 - Gout, unspecified (4) Hyperlipidemia Hyperlipidemia type: unspecified Qualified Code(s): E78.5 - Hyperlipidemia, unspecified (5) Cirrhosis Ascites presence: with ascites Hepatic cirrhosis type: unspecified hepatic cirrhosis Qualified Code(s): K74.60 - Unspecified cirrhosis of liver; R18.8 - Other ascites (6) GERD (gastroesophageal reflux disease) Esophagitis presence: esophagitis presence not specified Qualified Code(s): K21.9 - Gastro-esophageal reflux disease without esophagitis (7) Hypertension Hypertension type: essential hypertension Qualified Code(s): I10 - Essential (primary) hypertension
[2020-02-29] MEDS: INSULIN GLARGINE SOLOSTAR 100 UNITS/ML 3 ML PEN SQ SCH (20:57)
[2020-03-01] MEDS: ACETAMINOPHEN 325 MG TAB PO PRN (05:17)
[2020-03-01] MEDS: LEVOTHYROXINE SODIUM 50 MCG TABLET PO SCH (05:19)
[2020-03-01 07:08] LABS: INR 2.6 (0.9-1.1); Prothrombin Time 26.4 Seconds (9.0-12.0)
[2020-03-01 07:16] LABS: BUN Creatinine Ratio 32.9 (10-20); Calcium 8.5 mg/dl (8.5-10.1); Creatinine Clr Calc Pharmacy 44.2 ml/min; Est GFR (African American) 35.3; Est GFR (Non-African American) 30.4; Potassium 3.3 mmol/L (3.5-5.1)
[2020-03-01 07:22] LABS: Hematocrit (blood only) 32.8 % (42-52); Hemoglobin 10.2 g/dL (14.0-18.0); Mean Corpuscular Hemoglobin 30.9 pg (25-34); Mean Corpuscular Hgb Conc 31.1 g/dL (32-36); Mean Corpuscular Volume 99.4 fL (80-100); Mean Platelet Volume 11.9 fL (7.4-10.4); Platelet Count 484 K/uL (130-400); RDW Coefficient of Variation 18.6 % (11.5-14.5); RDW Standard Deviation 67.2 fL (36.4-46.3); White Blood Count 10.15 K/uL (4.8-10.8)
[2020-03-01] MEDS: INSULIN ASPART 100 UNITS/ML 3 ML PEN SC SCH ×4 (08:32→21:33)
[2020-03-01] MEDS: METOPROLOL TARTRATE 100 MG TAB PO SCH ×2 (08:33→21:30)
[2020-03-01] MEDS: ADVANCED PROBIOTIC 1250 MG CAPSULE PO SCH (08:34)
[2020-03-01] MEDS: allopurinoL 300 MG TAB PO SCH (08:34)
[2020-03-01] MEDS: FUROSEMIDE 80 MG TAB PO SCH ×2 (08:34→17:12)
[2020-03-01] MEDS: POTASSIUM CHLORIDE CRTAB 20 MEQ TABCR PO SCH ×3 (08:34→21:30)
[2020-03-01] MEDS: gemfibroziL 600 MG TAB PO SCH (08:35)
[2020-03-01] MEDS: ASPIRIN 81 MG ECTAB PO SCH (08:35)
[2020-03-01] MEDS: AMOXICILLIN/CLAVULANATE 875 MG TAB PO SCH ×2 (08:35→17:12)
[2020-03-01] MEDS: PANTOprazole 40 MG TAB PO SCH (08:36)
[2020-03-01] MEDS ORDERED: LACTULOSE SYRUP 20 GM/30 ML UDC PO SCH (09:00)
--- NOTE | 2020-03-01 16:23 | Hospitalist Progress Note ---
Date of Service March 01, 2020 Assessment & Plan (1) Hepatic encephalopathy: improved/resolved. ammonia normalized when last checked, will repeat tomorrow asterixis on exam gone. having numerous BMs - can cut lactulose back to 20gm daily in the morning add Rifaximin 550mg BID titrate for 2 loose BM a day 2nd to new-onset cirrhosis. (2) Cirrhosis: CHANG? leading diagnosis candidate. other? no h/o prior etoh. HepC neg. HepBsAg negative. with hepatic encephalopathy - treating such. see above. will need GI f/u post-d/c for this. aware of this diagnosis. (3) Acute diastolic (congestive) heart failure: acute/chronic. patient had been volume depleted - got IVF first few days of admission - developed volume overload. diuresed x 2 days. looks euvolemic past two days resumed normal diuretic regimen of lasix 80mg BID. (4) Acute metabolic encephalopathy: 2nd hyperammonemia, UTI. RESOLVED CT head, MRI brain, COVID x 2, CT chest/abd/pelvis, VBG - all negative/normal for other etiologies. (5) Urinary tract infection: 2nd enterococcus Change IV unasyn to PO augmentin plan at least 7 days of IV/PO abx; today is day #[address] abd/pelvis without obstructing stone (6) Acute kidney injury superimposed on chronic kidney disease: Creatinine 3.20 upon admission. 2.0 today. resolved. BMP again in the AM (7) Hyperlipidemia: Continue gemfibrozil 600 mg every morning (8) Diabetes: Hold glipizide cont lantus cont novolog for correction & carb coverage control adequate, monitor for hypoglycemia (9) Mechanical heart valve present: AV INR goal 2.5 to 3.5 mechanical, INR is 2.6 (10) Hypertension: Cont metoprolol 100mg BID (11) Gout: Continue allopurinol 300mg daily for prophylaxis (12) GERD (gastroesophageal reflux disease): Continue pantoprazole 40 mg daily (13) Morbid obesity with BMI of 40.0-44.9, adult: BMI 45 (14) Unilateral AKA: left performed 2014 does not use prosthesis uses power chair at home (15) Sleep disorder breathing: suspect he has ALECIA and/or OHS consider overnight oximetry study before discharge he states he has never had sleep study (16) DVT prophylaxis: coumadin Mely, his , wanting him to go to [facility] post-d/c patient slowly progressing Admission and Anticipated Discharge Date Admission Date: February 22, 2020 Subjective patient c/o diarrhea that is too frequent, moving bowels anytime he moves he says the staff is giving him a hard time due to this we discussed that ammonia is well controlled, can use Rifaximin and lower the dose of Lactulose for more comfort reviewed chart, reviewed labs today patient says he is eating okay, he says he is getting tired of the food discussed rehab, he is interested if possible, but at baseline he is in a motorized wheelchair due to his amputation Review of Systems Review of Systems: All systems reviewed & are unremarkable except as noted in Subjective Constitutional: + fatigue and + weakness; no fever Respiratory: no cough and no dyspnea Cardiovascular: no chest pain and no edema Gastrointestinal: + diarrhea/loose stools (multiple times a day); no abdominal pain, no nausea, no vomiting and no constipation Physical Exam Constitutional: well developed and + morbidly obese; no acute distress Neck: trachea midline and + thick neck Respiratory: normal respiratory effort, lungs clear to auscultation Auscultation: + diminished lung sounds (bases) Cardiovascular: RRR, no murmur, no edema Gastrointestinal (Abdomen): normal bowel sounds, soft, nontender, no hepatosplenomegaly Musculoskeletal: Head/Neck/Chest: normocephalic, head atraumatic and neck supple Extremities: + abnormal strength (generalized weakness) and + amputation noted (left AKA); no cyanosis and no clubbing Skin: no rashes, warm and dry Neurologic: CN's II-XI intact bilaterally, moves all extremities and awake; no focal motor deficits Psychiatric: A+Ox3, euthymic affect Lymphatic: no cervical or axillary lymphadenopathy Results & Data Results & Data ([facility]) Vital Signs (Past 12 Hours) Vital Signs Temp Pulse Pulse Resp BP Pulse Ox 03/01/20 15:03 36.5 C 82 81 18 110/73 92 03/01/20 12:17 93 H 03/01/20 12:02 37.0 C 84 19 122/79 93 03/01/20 07:55 36.9 C 86 19 110/72 93 Laboratory Results Laboratory Results - last 24 hr 02/29/20 03/01/20 03/01/20 20:53 06:38 06:38 WBC 10.15 RBC 3.30 L Hgb 10.2 L Hct 32.8 L MCV 99.4 MCH 30.9 MCHC 31.1 L RDW Std Deviation 67.2 H RDW Coeff of Jose 18.6 H Plt Count 484 H MPV 11.9 H PT INR Sodium 134 L Potassium 3.3 L Chloride 98 Carbon Dioxide 31 Anion Gap 5.0 BUN 68 H Creatinine 2.07 H Est Cr Clr Drug Dosing 44.2 Est GFR ( Amer) 35.3 Est GFR (Non-Af Amer) 30.4 BUN/Creatinine Ratio 32.9 H Glucose 104 H POC Glucose 154 H Calcium 8.5 03/01/20 03/01/20 03/01/20 06:38 07:44 11:34 WBC RBC Hgb Hct MCV MCH MCHC RDW Std Deviation RDW Coeff of Jose Plt Count MPV PT 26.4 H INR 2.6 H Sodium Potassium Chloride Carbon Dioxide Anion Gap BUN Creatinine Est Cr Clr Drug Dosing Est GFR ( Amer) Est GFR (Non-Af Amer) BUN/Creatinine Ratio Glucose POC Glucose 112 H 128 H Calcium 03/01/20 16:15 WBC RBC Hgb Hct MCV MCH MCHC RDW Std Deviation RDW Coeff of Jose Plt Count MPV PT INR Sodium Potassium Chloride Carbon Dioxide Anion Gap BUN Creatinine Est Cr Clr Drug Dosing Est GFR ( Amer) Est GFR (Non-Af Amer) BUN/Creatinine Ratio Glucose POC Glucose 123 H Calcium Medications Administered Current Inpatient Medications Acetaminophen (Acetaminophen 325 Mg Tab) 650 mg PO Q4H PRN PRN Reason: Pain or Fever Stop: 03/23/20 21:42 Last Admin: 03/01/20 05:17 Dose: 650 mg Documented by: Allopurinol ([facility]op[facility]ol 300 Mg Tab) [facility] [place]: 03/24/20 08:59 Last Admin: 03/01/20 08:34 Dose: 300 mg Documented by: Amoxicillin/Clavulanate Potassium (Amoxicillin/Clavulanate 875 Mg Tab) 1 tab PO BIDM [facility] Stop: 03/11/20 07:59 Last Admin: 03/01/20 08:35 Dose: 1 tab Documented by: Aspirin (Aspirin 81 Mg Ectab) [facility] [place] Stop: 03/24/20 08:59 Last Admin: 03/01/20 08:35 Dose: 81 mg Documented by: Dextrose (Dextrose 50% 50 Ml Syringe) 25 - 50 ml IV UD PRN; Protocol PRN Reason: Hypoglycemia Protocol Stop: 03/23/20 22:14 Furosemide (Furosemide 80 Mg Tab) 80 mg PO [id number] [facility] Stop: 03/31/20 08:59 Last Admin: 03/01/20 08:34 Dose: 80 mg Documented by: Gemfibrozil (Gemfibrozil 600 Mg Tab) 600 mg PO QAM [facility] Stop: 03/24/20 08:59 Last Admin: 03/01/20 08:35 Dose: 600 mg Documented by: Glucagon (Glucagon For Inj 1 Mg Vial) 1 mg IM UD PRN; Protocol PRN Reason: Hypoglycemia Protocol Stop: 03/23/20 22:14 Glucose (Glucose 40% Gel 15 Gm Tube) 15 - 30 gm PO UD PRN; Protocol PRN Reason: Hypoglycemia Protocol Stop: 03/23/20 22:14 Glucose (Glucose 10 Tabs/Tube) 4 - 8 tabs PO UD PRN; Protocol PRN Reason: Hypoglycemia Protocol Stop: 03/23/20 22:14 Insulin Aspart (Insulin Aspart 100 Units/Ml 3 Ml Pen) 0 units SC ACHS [facility] Stop: 03/24/20 16:29 Last Admin: 03/01/20 12:03 Dose: 5 units Documented by: Insulin Glargine (Insulin Glargine Solostar 100 Units/Ml 3 Ml Pen) 15 units SQ DAILY@2100 [facility] Stop: 03/25/20 20:59 Last Admin: 02/29/20 20:57 Dose: 15 units Documented by: Lactobacillus Acidoph/Casei/Rhamnos (Advanced Probiotic 1250 Mg Capsule) 2 cap PO DAILY [facility] Stop: 03/30/20 17:14 Last Admin: 03/01/20 08:34 Dose: 2 cap Documented by: Lactulose (Lactulose Syrup 20 Gm/30 Ml Udc) 20 gm PO DAILY [facility] Stop: 04/01/20 08:59 Levothyroxine Sodium (Levothyroxine Sodium 50 Mcg Tablet) 50 mcg PO DAILYBB [facility] Stop: 03/24/20 06:29 Last Admin: 03/01/20 05:19 Dose: 50 mcg Documented by: Metoprolol Tartrate (Metoprolol Tartrate 100 Mg Tab) 100 mg PO BID [facility] Stop: 03/23/20 21:59 Last Admin: 03/01/20 08:33 Dose: 100 mg Documented by: Miscellaneous (Carbohydrates For Hypoglycemia ) 15 - 30 gm PO UD PRN PRN Reason: Hypoglycemia Treatment Stop: 03/23/20 22:14 Ondansetron HCl (Ondansetron Inj 2 Mg/Ml 2 Ml Vial) 4 mg IV Q6H PRN PRN Reason: Nausea Stop: 03/23/20 21:42 Pantoprazole Sodium (Pantoprazole 40 Mg Tab) 40 mg PO QAM [facility] Stop: 03/24/20 08:59 Last Admin: 03/01/20 08:36 Dose: 40 mg Documented by: Potassium Chloride (Potassium Chloride Crtab 20 Meq Tabcr) 20 meq PO TID [facility] Stop: 03/24/20 13:59 Last Admin: 03/01/20 13:58 Dose: 20 meq Documented by: Pregabalin (Pregabalin 50 Mg Cap) 50 mg PO BID [facility] Stop: 03/23/20 21:59 Last Admin: 02/27/20 08:17 Dose: 50 mg Documented by: Rifaximin (Rifaximin 550 Mg Tablet) 550 mg PO BID [facility] Stop: 03/31/20 20:59 Warfarin Sodium (Warfarin Sod 2.5 Mg Tab) 2.5 mg PO SuTuThSa@1600 [facility] Stop: 03/25/20 15:59 Last Admin: 02/27/20 19:39 Dose: 2.5 mg Documented by: Warfarin Sodium (Warfarin Sod 5 Mg Tab) 5 mg PO MoWeFr@1600 [facility] Stop: 03/24/20 15:59 Last Admin: 02/28/20 15:38 Dose: 5 mg Documented by: PG Care Time/CCT Total # of Minutes Spent Total Time Spent with Patient: Total time spent is greater than 50% in coordination of care (as documented) at patient's floor/unit and/or counseling patient: Coding Level of Care Code 04593 Subseq Hosp Care Lvl 3 Diagnoses Hepatic encephalopathy K72.90 Cirrhosis K74.60; R18.8 Ascites presence: with ascites Hepatic cirrhosis type: unspecified hepatic cirrhosis Acute diastolic (congestive) heart failure I50.31 Acute metabolic encephalopathy G93.41 Urinary tract infection N30.01 Hematuria presence: with hematuria Urinary tract infection type: acute cystitis Acute kidney injury superimposed on chronic kidney disease N17.9; N18.9 Hyperlipidemia E78.5 Hyperlipidemia type: unspecified Diabetes E11.42; Z79.4 Diabetes mellitus complication detail: with polyneuropathy Diabetes mellitus complication status: with neurologic complications Diabetes mellitus exterminator helper termite insulin use: with exterminator helper termite use Diabetes mellitus type: type 2 Mechanical heart valve present Z95.2 Hypertension I10 Hypertension type: essential hypertension Gout M10.9 Chronicity: unspecified Gout etiology: unspecified cause Gout site: unspecified site GERD (gastroesophageal reflux disease) K21.9 Esophagitis presence: esophagitis presence not specified Morbid obesity with BMI of 40.0-44.9, adult E66.01; Z68.41 Unilateral AKA S78.119A Sleep disorder breathing G47.30 DVT prophylaxis Z29.9 (1) Urinary tract infection Hematuria presence: with hematuria Urinary tract infection type: acute cystitis Qualified Code(s): N30.01 - Acute cystitis with hematuria (2) Diabetes Diabetes mellitus complication detail: with polyneuropathy Diabetes mellitus complication status: with neurologic complications Diabetes mellitus assisted insulin use: with exterminator helper termite use Diabetes mellitus type: type 2 Qualified Code(s): E11.42 - Type 2 diabetes mellitus with diabetic polyneuropathy; Z79.4 - tank terminal gauger (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 insulin (3) Gout Chronicity: unspecified Gout etiology: unspecified cause Gout site: unspecified site Qualified Code(s): M10.9 - Gout, unspecified (4) Hyperlipidemia Hyperlipidemia type: unspecified Qualified Code(s): E78.5 - Hyperlipidemia, unspecified (5) Cirrhosis Ascites presence: with ascites Hepatic cirrhosis type: unspecified hepatic cirrhosis Qualified Code(s): K74.60 - Unspecified cirrhosis of liver; R18.8 - Other ascites (6) GERD (gastroesophageal reflux disease) Esophagitis presence: esophagitis presence not specified Qualified Code(s): K21.9 - Gastro-esophageal reflux disease without esophagitis (7) Hypertension Hypertension type: essential hypertension Qualified Code(s): I10 - Essential (primary) hypertension
[2020-03-01] MEDS: WARFARIN SOD 5 MG TAB PO SCH (17:08)
[2020-03-01] MEDS: rifAXIMin 550 MG TABLET PO SCH (21:31)
[2020-03-01] MEDS: INSULIN GLARGINE SOLOSTAR 100 UNITS/ML 3 ML PEN SQ SCH (21:31)
[2020-03-02] MEDS: LEVOTHYROXINE SODIUM 50 MCG TABLET PO SCH (05:31)
[2020-03-02 06:45] LABS: Hematocrit (blood only) 34.2 % (42-52); Hemoglobin 10.8 g/dL (14.0-18.0); Mean Corpuscular Hemoglobin 31.3 pg (25-34); Mean Corpuscular Hgb Conc 31.6 g/dL (32-36); Mean Corpuscular Volume 99.1 fL (80-100); Mean Platelet Volume 11.6 fL (7.4-10.4); Platelet Count 498 K/uL (130-400); RDW Coefficient of Variation 18.8 % (11.5-14.5); RDW Standard Deviation 67.2 fL (36.4-46.3); Red Blood Count 3.45 M/uL (4.7-6.1); White Blood Count 10.68 K/uL (4.8-10.8)
[2020-03-02 07:13] LABS: Albumin Level 2.6 gm/dl (3.4-5.0); BUN Creatinine Ratio 30.9 (10-20); Calcium 8.9 mg/dl (8.5-10.1); Creatinine Clr Calc Pharmacy 45.8 ml/min; Est GFR (Non-African American) 31.9; Potassium 3.2 mmol/L (3.5-5.1)
[2020-03-02 07:16] LABS: Albumin Globulin Ratio 0.5 (0.9-2); Bilirubin,Total 1.7 mg/dl (0.2-1); Globulin 5.2 gm/dl (2.5-4.0); Total Protein 7.8 gm/dl (6.4-8.2)
[2020-03-02] MEDS: ASPIRIN 81 MG ECTAB PO SCH (08:04)
[2020-03-02] MEDS: POTASSIUM CHLORIDE CRTAB 20 MEQ TABCR PO SCH ×3 (08:04→21:40)
[2020-03-02] MEDS: gemfibroziL 600 MG TAB PO SCH (08:04)
[2020-03-02] MEDS: PANTOprazole 40 MG TAB PO SCH (08:04)
[2020-03-02] MEDS: allopurinoL 300 MG TAB PO SCH (08:04)
[2020-03-02] MEDS: rifAXIMin 550 MG TABLET PO SCH ×2 (08:06→21:40)
[2020-03-02] MEDS: FUROSEMIDE 80 MG TAB PO SCH ×2 (08:06→16:35)
[2020-03-02] MEDS: AMOXICILLIN/CLAVULANATE 875 MG TAB PO SCH ×2 (08:06→16:35)
[2020-03-02] MEDS: METOPROLOL TARTRATE 100 MG TAB PO SCH ×2 (08:06→21:40)
[2020-03-02] MEDS: LACTULOSE SYRUP 20 GM/30 ML UDC PO SCH (08:06)
[2020-03-02] MEDS: ADVANCED PROBIOTIC 1250 MG CAPSULE PO SCH (08:07)
[2020-03-02] MEDS: INSULIN ASPART 100 UNITS/ML 3 ML PEN SC SCH ×4 (08:10→21:41)
[2020-03-02] MEDS: WARFARIN SOD 2.5 MG TAB PO SCH (16:35)
[2020-03-02] MEDS: INSULIN GLARGINE SOLOSTAR 100 UNITS/ML 3 ML PEN SQ SCH (21:44)
--- NOTE | 2020-03-02 22:24 | Hospitalist Progress Note ---
Date of Service March 02, 2020 Assessment & Plan (1) Hepatic encephalopathy: improved/resolved. ammonia normalized when last checked, repeat today is 28 asterixis on exam gone. having numerous BMs - can cut lactulose back to 20gm daily in the morning add Rifaximin 550mg BID titrate for 2 loose BM a day much better and tolerable today, will continue the above regimen repeat ammonia tomorrow (2) Cirrhosis: CHANG? leading diagnosis candidate. other? no h/o prior etoh. HepC neg. HepBsAg negative. with hepatic encephalopathy - treating such. see above. will need GI f/u post-d/c for this. aware of this diagnosis. (3) Acute diastolic (congestive) heart failure: acute/chronic. patient had been volume depleted - got IVF first few days of admission - developed volume overload. diuresed x 2 days. looks euvolemic past two days resumed normal diuretic regimen of lasix 80mg BID. making a lot of urine, Cr stable 1.99 (4) Acute metabolic encephalopathy: 2nd hyperammonemia, UTI. RESOLVED CT head, MRI brain, COVID x 2, CT chest/abd/pelvis, VBG - all negative/normal for other etiologies. (5) Urinary tract infection: 2nd enterococcus Change IV unasyn to PO augmentin plan at least 7 days of IV/PO abx; today is day #8 of Rx, will stop CT abd/pelvis without obstructing stone (6) Acute kidney injury superimposed on chronic kidney disease: Creatinine 3.20 upon admission. 1.99 today. resolved. BMP again in the AM (7) Hyperlipidemia: Continue gemfibrozil 600 mg every morning (8) Diabetes: Hold glipizide cont lantus cont novolog for correction & carb coverage control adequate, monitor for hypoglycemia, no episodes (9) Mechanical heart valve present: AV INR goal 2.5 to 3.5 mechanical, INR is 2.6 on 03/02, repeat tomorrow (10) Hypertension: Cont metoprolol 100mg BID (11) Gout: Continue allopurinol 300mg daily for prophylaxis (12) GERD (gastroesophageal reflux disease): Continue pantoprazole 40 mg daily (13) Morbid obesity with BMI of 40.0-44.9, adult: BMI 45 (14) Unilateral AKA: left performed 2014 does not use prosthesis uses power chair at home (15) Sleep disorder breathing: suspect he has ALECIA and/or OHS consider overnight oximetry study before discharge he states he has never had sleep study (16) DVT prophylaxis: coumadin Mely, his , wanting him to go to [facility] post-d/c patient slowly progressing Admission and Anticipated Discharge Date Admission Date: February 22, 2020 Subjective patient with only one BM today, ammonia is 28 eating okay, poor appetite today, no chest pain, no cough, no dyspnea moved to medical floor today he is in agreement with plan for rehab this week other labs show stable CBC and Cr of 1.99 with normal electrolytes Review of Systems Review of Systems: All systems reviewed & are unremarkable except as noted in Subjective Constitutional: + fatigue and + weakness; no fever, no chills and no sweats Cardiovascular: no chest pain Gastrointestinal: + diarrhea/loose stools; no abdominal pain, no nausea, no vomiting and no constipation Physical Exam Constitutional: well developed and + morbidly obese; no acute distress Neck: trachea midline and + thick neck Respiratory: normal respiratory effort, lungs clear to auscultation Auscultation: + diminished lung sounds (bases) Cardiovascular: RRR, no murmur, no edema Gastrointestinal (Abdomen): normal bowel sounds, soft, nontender, no hepatosplenomegaly Musculoskeletal: Head/Neck/Chest: normocephalic, head atraumatic and neck supple Extremities: + abnormal strength (generalized weakness) and + amputation noted (left AKA); no cyanosis and no clubbing Skin: no rashes, warm and dry Neurologic: CN's II-XI intact bilaterally, moves all extremities and awake; no focal motor deficits Psychiatric: A+Ox3, euthymic affect Lymphatic: no cervical or axillary lymphadenopathy Results & Data Results & Data ([facility]) Vital Signs (Past 12 Hours) Vital Signs Temp Pulse Pulse Resp BP BP Pulse Ox 03/02/20 21:38 92 H 115/72 03/02/20 15:00 36.5 C 91 H 16 118/71 91 03/02/20 12:00 36.7 C 83 20 115/67 94 03/02/20 10:38 36.8 C 83 22 111/65 94 Laboratory Results Laboratory Results - last 24 hr 03/02/20 03/02/20 03/02/20 06:35 06:35 06:35 WBC 10.68 RBC 3.45 L Hgb 10.8 L Hct 34.2 L MCV 99.1 MCH 31.3 MCHC 31.6 L RDW Std Deviation 67.2 H RDW Coeff of Jose 18.8 H Plt Count 498 H MPV 11.6 H Sodium 136 Potassium 3.2 L Chloride 98 Carbon Dioxide 29 Anion Gap 9.0 BUN 62 H Creatinine 1.99 H Est Cr Clr Drug Dosing 45.8 Est GFR ( Amer) 37.0 Est GFR (Non-Af Amer) 31.9 BUN/Creatinine Ratio 30.9 H Glucose 104 H POC Glucose Calcium 8.9 Total Bilirubin 1.7 H AST 29 ALT 15 Alkaline Phosphatase 149 H Ammonia 30.0 Total Protein 7.8 Albumin 2.6 L Globulin 5.2 H Albumin/Globulin Ratio 0.5 L 03/02/20 03/02/20 03/02/20 07:17 11:08 17:05 WBC RBC Hgb Hct MCV MCH MCHC RDW Std Deviation RDW Coeff of Jose Plt Count MPV Sodium Potassium Chloride Carbon Dioxide Anion Gap BUN Creatinine Est Cr Clr Drug Dosing Est GFR ( Amer) Est GFR (Non-Af Amer) BUN/Creatinine Ratio Glucose POC Glucose 138 H 142 H 141 H Calcium Total Bilirubin AST ALT Alkaline Phosphatase Ammonia Total Protein Albumin Globulin Albumin/Globulin Ratio 03/02/20 20:42 WBC RBC Hgb Hct MCV MCH MCHC RDW Std Deviation RDW Coeff of Jose Plt Count MPV Sodium Potassium Chloride Carbon Dioxide Anion Gap BUN Creatinine Est Cr Clr Drug Dosing Est GFR ( Amer) Est GFR (Non-Af Amer) BUN/Creatinine Ratio Glucose POC Glucose 155 H Calcium Total Bilirubin AST ALT Alkaline Phosphatase Ammonia Total Protein Albumin Globulin Albumin/Globulin Ratio Medications Administered Current Inpatient Medications Acetaminophen (Acetaminophen 325 Mg Tab) 650 mg PO Q4H PRN PRN Reason: Pain or Fever Stop: 03/23/20 21:42 Last Admin: 03/01/20 05:17 Dose: 650 mg Documented by: Allopurinol (Allopurinol 300 Mg Tab) 300 mg PO QAM [facility] Stop: 03/24/20 08:59 Last Admin: 03/02/20 08:04 Dose: 300 mg Documented by: Amoxicillin/Clavulanate Potassium (Amoxicillin/Clavulanate 875 Mg Tab) 1 tab PO BIDM [facility] Stop: 03/11/20 07:59 Last Admin: 03/02/20 16:35 Dose: 1 tab Documented by: Aspirin (Aspirin 81 Mg Ectab) 81 mg PO QAM [facility] Stop: 03/24/20 08:59 Last Admin: 03/02/20 08:04 Dose: 81 mg Documented by: Dextrose (Dextrose 50% 50 Ml Syringe) 25 - 50 ml IV UD PRN; Protocol PRN Reason: Hypoglycemia Protocol Stop: 03/23/20 22:14 Furosemide (Furosemide 80 Mg Tab) 80 mg PO [id number] [facility] Stop: 03/31/20 08:59 Last Admin: 03/02/20 16:35 Dose: 80 mg Documented by: Gemfibrozil (Gemfibrozil 600 Mg Tab) 600 mg PO QAM [facility] Stop: 03/24/20 08:59 Last Admin: 03/02/20 08:04 Dose: 600 mg Documented by: Glucagon (Glucagon For Inj 1 Mg Vial) 1 mg IM UD PRN; Protocol PRN Reason: Hypoglycemia Protocol Stop: 03/23/20 22:14 Glucose (Glucose 40% Gel 15 Gm Tube) 15 - 30 gm PO UD PRN; Protocol PRN Reason: Hypoglycemia Protocol Stop: 03/23/20 22:14 Glucose (Glucose 10 Tabs/Tube) 4 - 8 tabs PO UD PRN; Protocol PRN Reason: Hypoglycemia Protocol Stop: 03/23/20 22:14 Insulin Aspart (Insulin Aspart 100 Units/Ml 3 Ml Pen) 0 units SC ACHS [facility] Stop: 03/24/20 16:29 Last Admin: 03/02/20 21:41 Dose: Not Given Documented by: Insulin Glargine (Insulin Glargine Solostar 100 Units/Ml 3 Ml Pen) 15 units SQ DAILY@2100 [facility] Stop: 03/25/20 20:59 Last Admin: 03/02/20 21:44 Dose: 15 units Documented by: Lactobacillus Acidoph/Casei/Rhamnos (Advanced Probiotic 1250 Mg Capsule) 2 cap PO DAILY [facility] Stop: 03/30/20 17:14 Last Admin: 03/02/20 08:07 Dose: 2 cap Documented by: Lactulose (Lactulose Syrup 20 Gm/30 Ml Udc) 20 gm PO DAILY [facility] Stop: 04/01/20 08:59 Last Admin: 03/02/20 08:06 Dose: 20 gm Documented by: Levothyroxine Sodium (Levothyroxine Sodium 50 Mcg Tablet) 50 mcg PO DAILYBB [facility] Stop: 03/24/20 06:29 Last Admin: 03/02/20 05:31 Dose: 50 mcg Documented by: Metoprolol Tartrate (Metoprolol Tartrate 100 Mg Tab) 100 mg PO BID [facility] Stop: 03/23/20 21:59 Last Admin: 03/02/20 21:40 Dose: 100 mg Documented by: Miscellaneous (Carbohydrates For Hypoglycemia ) 15 - 30 gm PO UD PRN PRN Reason: Hypoglycemia Treatment Stop: 03/23/20 22:14 Ondansetron HCl (Ondansetron Inj 2 Mg/Ml 2 Ml Vial) 4 mg IV Q6H PRN PRN Reason: Nausea Stop: 03/23/20 21:42 Pantoprazole Sodium (Pantoprazole 40 Mg Tab) 40 mg PO QAM [facility] Stop: 03/24/20 08:59 Last Admin: 03/02/20 08:04 Dose: 40 mg Documented by: Potassium Chloride (Potassium Chloride Crtab 20 Meq Tabcr) 40 meq PO TID [facility] Stop: 04/01/20 08:59 Last Admin: 03/02/20 21:40 Dose: 40 meq Documented by: Pregabalin (Pregabalin 50 Mg Cap) 50 mg PO BID [facility] Stop: 03/23/20 21:59 Last Admin: 02/27/20 08:17 Dose: 50 mg Documented by: Rifaximin (Rifaximin 550 Mg Tablet) 550 mg PO BID [facility] Stop: 03/31/20 20:59 Last Admin: 03/02/20 21:40 Dose: 550 mg Documented by: Warfarin Sodium (Warfarin Sod 2.5 Mg Tab) 2.5 mg PO SuTuThSa@1600 [facility] Stop: 03/25/20 15:59 Last Admin: 03/02/20 16:35 Dose: 2.5 mg Documented by: Warfarin Sodium (Warfarin Sod 5 Mg Tab) 5 mg PO MoWeFr@1600 [facility] Stop: 03/24/20 15:59 Last Admin: 03/01/20 17:08 Dose: 5 mg Documented by: PG Care Time/CCT Total # of Minutes Spent Total Time Spent with Patient: Total time spent is greater than 50% in coordination of care (as documented) at patient's floor/unit and/or counseling patient: Coding Level of Care Code 50205 Subseq Hosp Care Lvl 3 Diagnoses Hepatic encephalopathy K72.90 Cirrhosis K74.60; R18.8 Hepatic cirrhosis type: unspecified hepatic cirrhosis Ascites presence: with ascites Acute diastolic (congestive) heart failure I50.31 Acute metabolic encephalopathy G93.41 Urinary tract infection N30.01 Hematuria presence: with hematuria Urinary tract infection type: acute cystitis Acute kidney injury superimposed on chronic kidney disease N17.9; N18.9 Hyperlipidemia E78.5 Hyperlipidemia type: unspecified Diabetes E11.42; Z79.4 Diabetes mellitus type: type 2 Diabetes mellitus roasterman insulin use: with roasterman use Diabetes mellitus complication status: with neurologic complications Diabetes mellitus complication detail: with polyneuropathy Mechanical heart valve present Z95.2 Hypertension I10 Hypertension type: essential hypertension Gout M10.9 Gout site: unspecified site Gout etiology: unspecified cause Chronicity: unspecified GERD (gastroesophageal reflux disease) K21.9 Esophagitis presence: esophagitis presence not specified Morbid obesity with BMI of 40.0-44.9, adult E66.01; Z68.41 Unilateral AKA S78.119A Sleep disorder breathing G47.30 DVT prophylaxis Z29.9 (1) Cirrhosis Hepatic cirrhosis type: unspecified hepatic cirrhosis Ascites presence: with ascites Qualified Code(s): K74.60 - Unspecified cirrhosis of liver; R18.8 - Other ascites (2) Urinary tract infection Hematuria presence: with hematuria Urinary tract infection type: acute cystitis Qualified Code(s): N30.01 - Acute cystitis with hematuria (3) Hyperlipidemia Hyperlipidemia type: unspecified Qualified Code(s): E78.5 - Hyperlipidemia, unspecified (4) Diabetes Diabetes mellitus type: type 2 Diabetes mellitus roasterman insulin use: with roasterman use Diabetes mellitus complication status: with neurologic complications Diabetes mellitus complication detail: with polyneuropathy Qualified Code(s): E11.42 - 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
[2020-03-03] MEDS: LEVOTHYROXINE SODIUM 50 MCG TABLET PO SCH (06:15)
[2020-03-03 07:21] LABS: INR 1.6 (0.9-1.1); Prothrombin Time 16.7 Seconds (9.0-12.0)
[2020-03-03 07:30] LABS: BUN Creatinine Ratio 26.8 (10-20); Calcium 9.2 mg/dl (8.5-10.1); Creatinine Clr Calc Pharmacy 44.2 ml/min; Est GFR (African American) 35.7; Est GFR (Non-African American) 30.8; Potassium 3.7 mmol/L (3.5-5.1)
[2020-03-03] MEDS: ACETAMINOPHEN 325 MG TAB PO PRN (08:28)
[2020-03-03] MEDS: POTASSIUM CHLORIDE CRTAB 20 MEQ TABCR PO SCH ×3 (08:31→20:52)
[2020-03-03] MEDS: allopurinoL 300 MG TAB PO SCH (08:32)
[2020-03-03] MEDS: ADVANCED PROBIOTIC 1250 MG CAPSULE PO SCH (08:32)
[2020-03-03] MEDS: gemfibroziL 600 MG TAB PO SCH (08:32)
[2020-03-03] MEDS: PANTOprazole 40 MG TAB PO SCH (08:33)
[2020-03-03] MEDS: ASPIRIN 81 MG ECTAB PO SCH (08:35)
[2020-03-03] MEDS: rifAXIMin 550 MG TABLET PO SCH ×2 (08:35→20:51)
[2020-03-03] MEDS: METOPROLOL TARTRATE 100 MG TAB PO SCH ×2 (08:36→20:51)
[2020-03-03] MEDS: FUROSEMIDE 80 MG TAB PO SCH ×2 (08:36→17:39)
[2020-03-03] MEDS: LACTULOSE SYRUP 20 GM/30 ML UDC PO SCH ×2 (08:36→13:43)
[2020-03-03] MEDS: AMOXICILLIN/CLAVULANATE 875 MG TAB PO SCH ×2 (08:36→17:39)
[2020-03-03] MEDS: INSULIN ASPART 100 UNITS/ML 3 ML PEN SC SCH ×4 (09:34→20:54)
--- NOTE | 2020-03-03 13:11 | Hospitalist Progress Note ---
Date of Service March 03, 2020 Assessment & Plan (1) Hepatic encephalopathy: resolved. ammonia up slightly to 34 from 28 asterixis on exam gone. will keep Lactulose at 20mg BID, moving bowels appropriately add Rifaximin 550mg BID titrate for 2-3 loose BM a day (2) Cirrhosis: CHANG? leading diagnosis candidate. other? no h/o prior etoh. HepC neg. HepBsAg negative. with hepatic encephalopathy - treating such. see above. will need GI f/u post-d/c for this. aware of this diagnosis. (3) Acute diastolic (congestive) heart failure: acute/chronic. patient had been volume depleted - got IVF first few days of admission - developed volume overload. diuresed x 2 days. looks euvolemic past three days resumed normal diuretic regimen of lasix 80mg BID. making a lot of urine, Cr stable 2.0 (4) Acute metabolic encephalopathy: 2nd hyperammonemia, UTI. RESOLVED CT head, MRI brain, COVID x 2, CT chest/abd/pelvis, VBG - all negative/normal for other etiologies. (5) Urinary tract infection: 2nd enterococcus Change IV unasyn to PO augmentin completed [address] abd/pelvis without obstructing stone (6) Acute kidney injury superimposed on chronic kidney disease: Creatinine 3.20 upon admission. 2.0 today. resolved. BMP again in the AM (7) Hyperlipidemia: Continue gemfibrozil 600 mg every morning (8) Diabetes: Hold glipizide cont lantus cont novolog for correction & carb coverage control adequate, monitor for hypoglycemia, no episodes (9) Mechanical heart valve present: AV INR goal 2.5 to 3.5 mechanical, INR is 1.6 after dose was held on . repeat in the AM he is on home regimen okay for INR to be subtherapeutic briefly since it is aortic valve (10) Hypertension: Cont metoprolol 100mg BID (11) Gout: Continue allopurinol 300mg daily for prophylaxis (12) GERD (gastroesophageal reflux disease): Continue pantoprazole 40 mg daily (13) Morbid obesity with BMI of 40.0-44.9, adult: BMI 45 (14) Unilateral AKA: left performed 2014 does not use prosthesis uses power chair at home (15) Sleep disorder breathing: suspect he has ALECIA and/or OHS consider overnight oximetry study before discharge he states he has never had sleep study (16) DVT prophylaxis: coumadin Mely, his , wanting him to go to [facility] post-d/c patient slowly progressing would be ready for rehab as early as tomorrow, CM can request insurance auth Admission and Anticipated Discharge Date Admission Date: February 22, 2020 Subjective patient is awake and oriented today, no acute issues discussed removing wise catheter, will plan to remove it tomorrow, he is concerned about cutting his skin with the urinal like he did last time he is eating fairly well, says the food does not taste great he is moving his bowels ammonia is 34 today, Cr is stable and electrolytes are normal Review of Systems Review of Systems: All systems reviewed & are unremarkable except as noted in Subjective Constitutional: + weakness; no fever and no fatigue Respiratory: no cough and no dyspnea Cardiovascular: no chest pain and no edema Gastrointestinal: + diarrhea/loose stools; no abdominal pain, no nausea, no vomiting and no constipation Physical Exam Constitutional: well developed and + morbidly obese; no acute distress Neck: trachea midline and + thick neck Respiratory: normal respiratory effort, lungs clear to auscultation Auscultation: + diminished lung sounds (bases) Cardiovascular: RRR, no murmur, no edema Gastrointestinal (Abdomen): normal bowel sounds, soft, nontender, no hepatosplenomegaly Musculoskeletal: Head/Neck/Chest: normocephalic, head atraumatic and neck supple Extremities: + abnormal strength (generalized weakness) and + amputation noted (left AKA); no cyanosis and no clubbing Skin: no rashes, warm and dry Neurologic: CN's II-XI intact bilaterally, moves all extremities and awake; no focal motor deficits Psychiatric: A+Ox3, euthymic affect Lymphatic: no cervical or axillary lymphadenopathy Results & Data Results & Data ([facility]) Vital Signs (Past 12 Hours) Vital Signs Temp Pulse Resp BP Pulse Ox 03/03/20 07:38 36.9 C 77 18 129/71 95 Laboratory Results Laboratory Results - last 24 hr 03/02/20 03/02/20 03/03/20 17:05 20:42 06:52 PT INR Sodium Potassium Chloride Carbon Dioxide Anion Gap BUN Creatinine Est Cr Clr Drug Dosing Est GFR ( Amer) Est GFR (Non-Af Amer) BUN/Creatinine Ratio Glucose POC Glucose 141 H 155 H Calcium Ammonia 34.7 H 03/03/20 03/03/20 03/03/20 06:52 06:52 08:17 PT 16.7 H INR 1.6 H Sodium 136 Potassium 3.7 D Chloride 98 Carbon Dioxide 30 Anion Gap 8.0 BUN 55 H Creatinine 2.05 H Est Cr Clr Drug Dosing 44.2 Est GFR ( Amer) 35.7 Est GFR (Non-Af Amer) 30.8 BUN/Creatinine Ratio 26.8 H Glucose 109 H POC Glucose 123 H Calcium 9.2 Ammonia 03/03/20 12:29 PT INR Sodium Potassium Chloride Carbon Dioxide Anion Gap BUN Creatinine Est Cr Clr Drug Dosing Est GFR ( Amer) Est GFR (Non-Af Amer) BUN/Creatinine Ratio Glucose POC Glucose 121 H Calcium Ammonia Medications Administered Current Inpatient Medications Acetaminophen (Acetaminophen 325 Mg Tab) 650 mg PO Q4H PRN PRN Reason: Pain or Fever Stop: 03/23/20 21:42 Last Admin: 03/03/20 08:28 Dose: 650 mg Documented by: Allopurinol (Allopurinol 300 Mg Tab) 300 mg PO [facility] Stop: 03/24/20 08:59 Last Admin: 03/03/20 08:32 Dose: 300 mg Documented by: Amoxicillin/Clavulanate Potassium (Amoxicillin/Clavulanate 875 Mg Tab) 1 tab PO BIDM [facility] Stop: 03/11/20 07:59 Last Admin: 03/03/20 08:36 Dose: 1 tab Documented by: Aspirin (Aspirin 81 Mg Ectab) [facility] [place]: 03/24/20 08:59 Last Admin: 03/03/20 08:35 Dose: 81 mg Documented by: Dextrose (Dextrose 50% 50 Ml Syringe) 25 - 50 ml IV UD PRN; Protocol PRN Reason: Hypoglycemia Protocol Stop: 03/23/20 22:14 Furosemide (Furosemide 80 Mg Tab) 80 mg PO BID17 [facility] Stop: 03/31/20 08:59 Last Admin: 03/03/20 08:36 Dose: 80 mg Documented by: Gemfibrozil (Gemfibrozil 600 Mg Tab) 600 mg PO QAM [facility] Stop: 03/24/20 08:59 Last Admin: 03/03/20 08:32 Dose: 600 mg Documented by: Glucagon (Glucagon For Inj 1 Mg Vial) 1 mg IM UD PRN; Protocol PRN Reason: Hypoglycemia Protocol Stop: 03/23/20 22:14 Glucose (Glucose 40% Gel 15 Gm Tube) 15 - 30 gm PO UD PRN; Protocol PRN Reason: Hypoglycemia Protocol Stop: 03/23/20 22:14 Glucose (Glucose 10 Tabs/Tube) 4 - 8 tabs PO UD PRN; Protocol PRN Reason: Hypoglycemia Protocol Stop: 03/23/20 22:14 Insulin Aspart (Insulin Aspart 100 Units/Ml 3 Ml Pen) 0 units SC ACHS [facility] Stop: 03/24/20 16:29 Last Admin: 03/03/20 09:34 Dose: 4 units Documented by: Insulin Glargine (Insulin Glargine Solostar 100 Units/Ml 3 Ml Pen) 15 units SQ DAILY@2100 [facility] Stop: 03/25/20 20:59 Last Admin: 03/02/20 21:44 Dose: 15 units Documented by: Lactobacillus Acidoph/Casei/Rhamnos (Advanced Probiotic 1250 Mg Capsule) 2 cap PO DAILY [facility] Stop: 03/30/20 17:14 Last Admin: 03/03/20 08:32 Dose: 2 cap Documented by: Lactulose (Lactulose Syrup 20 Gm/30 Ml Udc) 20 gm PO DAILY [facility] Stop: 04/01/20 08:59 Last Admin: 03/03/20 08:36 Dose: 20 gm Documented by: Lactulose (Lactulose Syrup 20 Gm/30 Ml Udc) 20 gm PO DAILY@1200 [facility] Stop: 04/02/20 11:59 Levothyroxine Sodium (Levothyroxine Sodium 50 Mcg Tablet) 50 mcg PO DAILYBB [facility] Stop: 03/24/20 06:29 Last Admin: 03/03/20 06:15 Dose: 50 mcg Documented by: Metoprolol Tartrate (Metoprolol Tartrate 100 Mg Tab) 100 mg PO BID [facility] Stop: 03/23/20 21:59 Last Admin: 03/03/20 08:36 Dose: 100 mg Documented by: Miscellaneous (Carbohydrates For Hypoglycemia ) 15 - 30 gm PO UD PRN PRN Reason: Hypoglycemia Treatment Stop: 03/23/20 22:14 Ondansetron HCl (Ondansetron Inj 2 Mg/Ml 2 Ml Vial) 4 mg IV Q6H PRN PRN Reason: Nausea Stop: 03/23/20 21:42 Pantoprazole Sodium (Pantoprazole 40 Mg Tab) 40 mg PO QAM [facility] Stop: 03/24/20 08:59 Last Admin: 03/03/20 08:33 Dose: 40 mg Documented by: Potassium Chloride (Potassium Chloride Crtab 20 Meq Tabcr) 40 meq PO TID [facility] Stop: 04/01/20 08:59 Last Admin: 03/03/20 08:31 Dose: 40 meq Documented by: Pregabalin (Pregabalin 50 Mg Cap) 50 mg PO BID [facility] Stop: 03/23/20 21:59 Last Admin: 02/27/20 08:17 Dose: 50 mg Documented by: Rifaximin (Rifaximin 550 Mg Tablet) 550 mg PO BID [facility] Stop: 03/31/20 20:59 Last Admin: 03/03/20 08:35 Dose: 550 mg Documented by: Warfarin Sodium (Warfarin Sod 2.5 Mg Tab) 2.5 mg PO SuTuThSa@1600 [facility] Stop: 03/25/20 15:59 Last Admin: 03/02/20 16:35 Dose: 2.5 mg Documented by: Warfarin Sodium (Warfarin Sod 5 Mg Tab) 5 mg PO MoWeFr@1600 [facility] Stop: 03/24/20 15:59 Last Admin: 03/01/20 17:08 Dose: 5 mg Documented by: PG Care Time/CCT Total # of Minutes Spent Total Time Spent with Patient: Total time spent is greater than 50% in coordination of care (as documented) at patient's floor/unit and/or counseling patient: Coding Level of Care Code 21228 Subseq Hosp Care Lvl 3 Diagnoses Hepatic encephalopathy K72.90 Cirrhosis K74.60; R18.8 Ascites presence: with ascites Hepatic cirrhosis type: unspecified hepatic cirrhosis Acute diastolic (congestive) heart failure I50.31 Acute metabolic encephalopathy G93.41 Urinary tract infection N30.01 Hematuria presence: with hematuria Urinary tract infection type: acute cystitis Acute kidney injury superimposed on chronic kidney disease N17.9; N18.9 Hyperlipidemia E78.5 Hyperlipidemia type: unspecified Diabetes E11.42; Z79.4 Diabetes mellitus complication detail: with polyneuropathy Diabetes mellitus complication status: with neurologic complications Diabetes mellitus marine oil terminal superintendent insulin use: with marine oil terminal superintendent use Diabetes mellitus type: type 2 Mechanical heart valve present Z95.2 Hypertension I10 Hypertension type: essential hypertension Gout M10.9 Chronicity: unspecified Gout etiology: unspecified cause Gout site: unspecified site GERD (gastroesophageal reflux disease) K21.9 Esophagitis presence: esophagitis presence not specified Morbid obesity with BMI of 40.0-44.9, adult E66.01; Z68.41 Unilateral AKA S78.119A Sleep disorder breathing G47.30 DVT prophylaxis Z29.9 (1) Urinary tract infection Hematuria presence: with hematuria Urinary tract infection type: acute cystitis Qualified Code(s): N30.01 - Acute cystitis with hematuria (2) Diabetes Diabetes mellitus complication detail: with polyneuropathy Diabetes mellitus complication status: with neurologic complications Diabetes mellitus marine oil terminal superintendent insulin use: with group home use Diabetes mellitus type: type 2 Qualified Code(s): E11.42 - Type 2 diabetes mellitus with diabetic polyneuropathy; Z79.4 - detention (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 insulin (3) Gout Chronicity: unspecified Gout etiology: unspecified cause Gout site: unspecified site Qualified Code(s): M10.9 - Gout, unspecified (4) Hyperlipidemia Hyperlipidemia type: unspecified Qualified Code(s): E78.5 - Hyperlipidemia, unspecified (5) Cirrhosis Ascites presence: with ascites Hepatic cirrhosis type: unspecified hepatic cirrhosis Qualified Code(s): K74.60 - Unspecified cirrhosis of liver; R18.8 - Other ascites (6) GERD (gastroesophageal reflux disease) Esophagitis presence: esophagitis presence not specified Qualified Code(s): K21.9 - Gastro-esophageal reflux disease without esophagitis (7) Hypertension Hypertension type: essential hypertension Qualified Code(s): I10 - Essential (primary) hypertension
[2020-03-03] MEDS: WARFARIN SOD 2.5 MG TAB PO SCH (17:39)
[2020-03-03] MEDS: INSULIN GLARGINE SOLOSTAR 100 UNITS/ML 3 ML PEN SQ SCH (20:53)
[2020-03-04] MEDS: ACETAMINOPHEN 325 MG TAB PO PRN (04:26)
[2020-03-04] MEDS: LEVOTHYROXINE SODIUM 50 MCG TABLET PO SCH (06:10)
[2020-03-04 07:13] LABS: Hematocrit (blood only) 34.2 % (42-52); Hemoglobin 10.7 g/dL (14.0-18.0); Mean Corpuscular Hemoglobin 31.5 pg (25-34); Mean Corpuscular Hgb Conc 31.3 g/dL (32-36); Mean Corpuscular Volume 100.6 fL (80-100); Mean Platelet Volume 11.4 fL (7.4-10.4); Nucleated RBC # (auto) 0.03 K/uL (0-0); Nucleated RBC % (auto) 0.3 %; Platelet Count 540 K/uL (130-400); RDW Standard Deviation 70.4 fL (36.4-46.3); White Blood Count 10.51 K/uL (4.8-10.8)
[2020-03-04 07:23] LABS: INR 1.7 (0.9-1.1); Prothrombin Time 17.4 Seconds (9.0-12.0)
[2020-03-04 07:45] LABS: BUN Creatinine Ratio 26.7 (10-20); Calcium 8.9 mg/dl (8.5-10.1); Creatinine Clr Calc Pharmacy 45.1 ml/min; Est GFR (African American) 36.5; Est GFR (Non-African American) 31.5; Potassium 3.6 mmol/L (3.5-5.1)
[2020-03-04] MEDS: POTASSIUM CHLORIDE CRTAB 20 MEQ TABCR PO SCH (08:28)
[2020-03-04] MEDS: METOPROLOL TARTRATE 100 MG TAB PO SCH (08:28)
[2020-03-04] MEDS: rifAXIMin 550 MG TABLET PO SCH (08:28)
[2020-03-04] MEDS: FUROSEMIDE 80 MG TAB PO SCH (08:29)
[2020-03-04] MEDS: gemfibroziL 600 MG TAB PO SCH (08:29)
[2020-03-04] MEDS: AMOXICILLIN/CLAVULANATE 875 MG TAB PO SCH (08:29)
[2020-03-04] MEDS: allopurinoL 300 MG TAB PO SCH (08:29)
[2020-03-04] MEDS: ADVANCED PROBIOTIC 1250 MG CAPSULE PO SCH (08:29)
[2020-03-04] MEDS: ASPIRIN 81 MG ECTAB PO SCH (08:29)
[2020-03-04] MEDS: PANTOprazole 40 MG TAB PO SCH (08:29)
[2020-03-04] MEDS: LACTULOSE SYRUP 20 GM/30 ML UDC PO SCH ×2 (08:41→12:42)
--- NOTE | 2020-03-04 08:47 | Hospitalist Progress Note ---
Date of Service March 04, 2020 Assessment & Plan Admission and Anticipated Discharge Date Admission Date: February 22, 2020 Results & Data Results & Data ([facility]) Vital Signs (Past 12 Hours) Vital Signs Temp Pulse Resp BP Pulse Ox 03/04/20 07:29 36.8 C 84 18 101/63 92 03/03/20 22:59 36.9 C 83 18 110/71 94 Laboratory Results 03/04/20 03/04/20 03/04/20 Range/Units 08:32 07:00 06:57 WBC (4.8-10.8) K/uL RBC (4.7-6.1) M/uL Hgb (14.0-18.0) g/dL Hct (42-52) % MCV (80-100) fL MCH (25-34) pg MCHC (32-36) g/dL RDW Std Deviation (36.4-46.3) fL RDW Coeff of Jose (11.5-14.5) % Plt Count (130-400) K/uL MPV (7.4-10.4) fL Absolute Nucleated RBC (0-0) K/uL Nucleated RBC % (auto) % PT (9.0-12.0) Seconds INR (0.9-1.1) Sodium 137 (136-145) mmol/L Potassium 3.6 (3.5-5.1) mmol/L Chloride 101 (98-107) mmol/L Carbon Dioxide 31 (21-32) mmol/L Anion Gap 5.0 (3-11) BUN 54 H (7-18) mg/dl Creatinine 2.01 H (0.6-1.4) mg/dl Est Cr Clr Drug Dosing 45.1 ml/min Est GFR ( Amer) 36.5 Est GFR (Non-Af Amer) 31.5 BUN/Creatinine Ratio 26.7 H (10-20) Glucose 96 (70-99) mg/dl POC Glucose 98 (70-99) mg/dl Calcium 8.9 (8.5-10.1) mg/dl Ammonia 25.8 (11-32) umol/L 03/04/20 03/04/20 03/03/20 Range/Units 06:57 06:57 20:37 WBC 10.51 (4.8-10.8) K/uL RBC 3.40 L (4.7-6.1) M/uL Hgb 10.7 L (14.0-18.0) g/dL Hct 34.2 L (42-52) % MCV 100.6 H (80-100) fL MCH 31.5 (25-34) pg MCHC 31.3 L (32-36) g/dL RDW Std Deviation 70.4 H (36.4-46.3) fL RDW Coeff of Jose 19.0 H (11.5-14.5) % Plt Count 540 H (130-400) K/uL MPV 11.4 H (7.4-10.4) fL Absolute Nucleated RBC 0.03 H (0-0) K/uL Nucleated RBC % (auto) 0.3 % PT 17.4 H (9.0-12.0) Seconds INR 1.7 H (0.9-1.1) Sodium (136-145) mmol/L Potassium (3.5-5.1) mmol/L Chloride (98-107) mmol/L Carbon Dioxide (21-32) mmol/L Anion Gap (3-11) BUN (7-18) mg/dl Creatinine (0.6-1.4) mg/dl Est Cr Clr Drug Dosing ml/min Est GFR ( Amer) Est GFR (Non-Af Amer) BUN/Creatinine Ratio (10-20) Glucose (70-99) mg/dl POC Glucose 133 H (70-99) mg/dl Calcium (8.5-10.1) mg/dl Ammonia (11-32) umol/L 03/03/20 03/03/20 Range/Units 17:21 12:29 WBC (4.8-10.8) K/uL RBC (4.7-6.1) M/uL Hgb (14.0-18.0) g/dL Hct (42-52) % MCV (80-100) fL MCH (25-34) pg MCHC (32-36) g/dL RDW Std Deviation (36.4-46.3) fL RDW Coeff of Jose (11.5-14.5) % Plt Count (130-400) K/uL MPV (7.4-10.4) fL Absolute Nucleated RBC (0-0) K/uL Nucleated RBC % (auto) % PT (9.0-12.0) Seconds INR (0.9-1.1) Sodium (136-145) mmol/L Potassium (3.5-5.1) mmol/L Chloride (98-107) mmol/L Carbon Dioxide (21-32) mmol/L Anion Gap (3-11) BUN (7-18) mg/dl Creatinine (0.6-1.4) mg/dl Est Cr Clr Drug Dosing ml/min Est GFR ( Amer) Est GFR (Non-Af Amer) BUN/Creatinine Ratio (10-20) Glucose (70-99) mg/dl POC Glucose 118 H 121 H (70-99) mg/dl Calcium (8.5-10.1) mg/dl Ammonia (11-32) umol/L PG Care Time/CCT Total # of Minutes Spent Total Time Spent with Patient: Total time spent is greater than 50% in coordination of care (as documented) at patient's floor/unit and/or counseling patient: Coding
[2020-03-04] MEDS ORDERED: LIDOCAINE 5% 1 PATCH TD SCH (09:00)
[2020-03-04] MEDS: INSULIN ASPART 100 UNITS/ML 3 ML PEN SC SCH (09:14)
--- NOTE | 2020-03-18 07:20 | Discharge Summary ---
Date of Service March 04, 2020 Admission HPI Per Admitting Provider The patient is a 74-year-old male with a past medical history including chronic diastolic CHF, HFpEF, hyperlipidemia, diabetes mellitus, hypertension, anemia, gout, GERD, bronchitis, peripheral neuropathy, LINO, COPD, left AKA, epistaxis and mechanical valve. His most recent hospitalization was from 11/21-11/27/2023 urinary tract infection, and essentially the same symptoms as he otherwise presented with today. Principal Diagnosis hepatic encephalopathy Discharge Exam Patient was discharged by Sridevi Garcia, PAC Discharge Data Allergies Allergy/AdvReac Type Severity Reaction Status Date / Time enoxaparin Allergy Unknown Illness Verified 02/22/20 17:25 morphine Allergy Unknown Unknown Verified 02/22/20 17:25 adhesive AdvReac Unknown SORES WITH Verified 02/22/20 17:25 "SOME TAPE" oxycodone AdvReac Unknown HALLUCINATI Verified 02/22/20 17:25 ONS Consultations 02/22/20 16:51 ED Decision to Admit Stat 02/22/20 21:43 Consult Case Management - Discharge Planning Routine Ordered Studies 02/22/20 15:08 CT head/brain wo con Stat 02/22/20 21:43 MR brain wo con Urgent 02/23/20 16:54 US abdomen limited Routine 02/27/20 18:36 CT abd pelvis wo con Urgent CT chest wo con Urgent Hospital Course (1) Hepatic encephalopathy: resolved. ammonia up slightly to 34 from 28 asterixis on exam gone. will keep Lactulose at 20mg BID, moving bowels appropriately add Rifaximin 550mg BID titrate for 2-3 loose BM a day (2) Cirrhosis: CHANG? leading diagnosis candidate. other? no h/o prior etoh. HepC neg. HepBsAg negative. with hepatic encephalopathy - treating such. see above. will need GI f/u post-d/c for this. aware of this diagnosis. (3) Acute diastolic (congestive) heart failure: acute/chronic. patient had been volume depleted - got IVF first few days of admission - developed volume overload. diuresed x 2 days. looks euvolemic past three days resumed normal diuretic regimen of lasix 80mg BID. making a lot of urine, Cr stable 2.0 (4) Acute metabolic encephalopathy: 2nd hyperammonemia, UTI. RESOLVED CT head, MRI brain, COVID x 2, CT chest/abd/pelvis, VBG - all negative/normal for other etiologies. (5) Urinary tract infection: 2nd enterococcus Change IV unasyn to PO augmentin completed [address] abd/pelvis without obstructing stone (6) Acute kidney injury superimposed on chronic kidney disease: Creatinine 3.20 upon admission. 2.0 today. resolved. BMP again in the AM (7) Hyperlipidemia: Continue gemfibrozil 600 mg every morning (8) Diabetes: Hold glipizide cont lantus cont novolog for correction & carb coverage control adequate, monitor for hypoglycemia, no episodes (9) Mechanical heart valve present: AV INR goal 2.5 to 3.5 mechanical, INR is 1.6 after dose was held on 02.28 repeat in the AM he is on home regimen okay for INR to be subtherapeutic briefly since it is aortic valve (10) Hypertension: Cont metoprolol 100mg BID (11) Gout: Continue allopurinol 300mg daily for prophylaxis (12) GERD (gastroesophageal reflux disease): Continue pantoprazole 40 mg daily (13) Morbid obesity with BMI of 40.0-44.9, adult: BMI 45 (14) Unilateral AKA: left performed 2014 does not use prosthesis uses power chair at home (15) Sleep disorder breathing: suspect he has ALECIA and/or OHS consider overnight oximetry study before discharge he states he has never had sleep study (16) DVT prophylaxis: coumadin Mely, his , wanting him to go to [facility] post-d/c patient slowly progressing would be ready for rehab as early as tomorrow, CM can request insurance auth Total Time Total Time Spent Total Time Spent (In Minutes): Less than 30 minutes Discharge Plan Discharge Items Patient Disposition: Transfer Inpatient Rehab Fac Reason For Visit: CONFUSION, WEAKNESS, LINO Discharge Diagnosis: Hepatic Encephalopathy, CHANG Goals: You have been hospitalized for an acute medical problem. During your stay at [facility], we have made an effort to correct the problem that brought you to the hospital while keeping you as comfortable as possible. Medications were used to bring your condition under control and your discharge instructions will include directions for any medications you should take after leaving the hospital. Please make sure you see your Primary Care Provider as part of your follow up plan. Activity: As commented below Activity Comment: increase activity with therapy Non-emergency contact: Primary Care Provider and Television News Photographer Call non-emergency contact if: you have any medication questions and your symptoms worsen Follow-up/Referrals: Alexander Velasco, [Physician] - (2 weeks- cirrhosis) Leonel Manriquez MD [Primary Care Provider] - Diet: Carb Consistent or DM2 and Heart Healthy Addtl Attending Provider Instructions: You have been hospitalized for confusion and found to have hepatic encephalopathy, likely related to CHANG given hepatitis panel negative and no history of cirrhosis or alcohol abuse. You have been started on new medication to help keep ammonia levels down and prevent confusion and these will be continued to produce 2-3 bowel movements per day. You have been set up rehab at discharge. You will need GI follow up after discharge for cirrhosis. Please follow up with your PCP in next week. You should consider a sleep study as an outpatient for possible sleep apnea. Return to emergency department with any symptoms that are concerning for you. It has been a pleasure being a part of the medical team providing for you while in the hospital. Take care! Pending Studies at Discharge: No Stand-Alone Forms: My [facility] Skilled Items Patient informed of condition?: Yes DNR: No Discharge Level of Care: Acute rehab Communicable Disease: No Discharge Prognosis: Stable Lines: None Urinary Catheter: No Medications and DC Order Prescriptions: New lactulose 20 gram/30 mL Solution 30 ml PO DAILY 30 Days Qty: 900 RF: 0 lactulose 20 gram/30 mL Solution 30 ml PO DAILY@1200 30 Days RF: 0 potassium chloride [Klor-Con M20] 20 mEq Tablet,Er Particles/Crystals 40 meq PO TID 30 Days Qty: 180 RF: 0 Continued furosemide [Lasix] 40 mg tablet 80 mg PO BID RF: 0 metoprolol tartrate 100 mg tablet 100 mg PO BID RF: 0 Lantus Solostar U-100 Insulin 100 unit/mL (3 mL) insulin pen 15 unit subcut DAILY@2100 RF: 0 glipizide [Glucotrol] 10 mg tablet 10 mg PO BID RF: 0 gemfibrozil [Lopid] 600 mg tablet 600 mg PO QAM RF: 0 pantoprazole [Protonix] 40 mg tablet,delayed release (DR/EC) 40 mg PO QAM RF: 0 allopurinol [Zyloprim] 300 mg tablet 300 mg PO QAM RF: 0 aspirin [Ecotrin Low Strength] 81 mg Tablet,Delayed Release (Dr/Ec) 81 mg PO QAM Qty: 30 RF: 0 pregabalin 50 mg capsule 50 mg PO BID RF: 0 levothyroxine 50 mcg tablet 50 mcg PO QAM RF: 0 warfarin 5 mg tablet 5 mg PO 3XWK RF: 0 warfarin 5 mg tablet 2.5 mg PO 4XWK RF: 0 Discontinued potassium chloride [Klor-Con M20] 20 mEq tablet,ER particles/crystals See Rx Instructions .ROUTE .COMPLEX RF: 0 Discharge Orders: Discharge Order (Routine); Ordered 03/04/20 Ordered By: Sridevi Barton/Other Patient Handouts: Hypoglycemia (Low Blood Sugar), Managing Type 2 Diabetes Admission Data Admit Date/Time: 02/22/20 19:06 Attending Provider: Aldo Woodward Admit Provider: Mejia Antoine Primary Care Provider: Leonel Manriquez Other Providers: [facility] ; Mejia Antoine Other Interventions: Discharge Summary Assessment (RN) Last Done: 03/04/20 13:46 Coding Level of Care Code D/C Day Management <30 mins Diagnoses Hepatic encephalopathy K72.90 Cirrhosis K74.60; R18.8 Hepatic cirrhosis type: unspecified hepatic cirrhosis Ascites presence: with ascites Acute diastolic (congestive) heart failure I50.31 Acute metabolic encephalopathy G93.41 Urinary tract infection N30.01 Hematuria presence: with hematuria Urinary tract infection type: acute cystitis Acute kidney injury superimposed on chronic kidney disease N17.9; N18.9 Hyperlipidemia E78.5 Hyperlipidemia type: unspecified Diabetes E11.42; Z79.4 Diabetes mellitus type: type 2 Diabetes mellitus licensing and registration director insulin use: with licensing and registration director use Diabetes mellitus complication status: with neurologic complications Diabetes mellitus complication detail: with polyneuropathy Mechanical heart valve present Z95.2 Hypertension I10 Hypertension type: essential hypertension Gout M10.9 Gout site: unspecified site Gout etiology: unspecified cause Chronicity: unspecified GERD (gastroesophageal reflux disease) K21.9 Esophagitis presence: esophagitis presence not specified Morbid obesity with BMI of 40.0-44.9, adult E66.01; Z68.41 Unilateral AKA S78.119A Sleep disorder breathing G47.30 DVT prophylaxis Z29.9
== END 2020-03-04 14:56 | DRG 441 ==
LOC: ED 14:49 → 2S 19:06 → SUATTDRO 19:06 → 2S 21:20 → 3N 03-02 11:30

== ENCOUNTER 2020-04-03 13:33 | Inpatient (IN) ==
--- NOTE | 2020-04-03 14:08 | Emergency Department Note ---
Impression & Plan Acute renal failure (ARF), Acute uremia ED Provider Note NAME: JUAN SIU III AGE: 74 SEX: M : 1945 ARRIVES VIA: Walk-In INFORMANT: Patient, ED PROVIDER(S): Eilgio Padilla MD Chief Complaint: Confusion, fatigue, doctor referral HPI: Patient does present from his primary care physician's office due to concern for jaundice and increasing sleepiness and fatigue. Patient states that this is probably ongoing for the last week or so and did have a follow-up as the patient did have a recent admission due to concern for hepatic encephalopathy and elevated ammonia. The patient states that he has been taking his medications as prescribed and has been having loose stools approximately 2 to 3/day as had been recommended. The patient denies any fevers, chills, chest pains or shortness of breath. The patient denies any nausea or vomiting or abdominal or back pain. Patient does have a known history of CHF hyperlipidemia diabetes hypertension anemia gout GERD bronchitis peripheral neuropathy LINO COPD and a recent admission in February. Patient did have hepatic encephalopathy was an elevated ammonia. Patient was referred today as there was concern for jaundice and increasing confusion. Patient does have a history of cirrhosis with hep C and hip the S antigen negative. Patient is to be taking lactulose and rifaximin. ROS: See HPI for pertinent positives and negatives. A total of 10 systems were reviewed and otherwise negative. Past medical history: See below Surgical history: See below Social history: See below Physical Exam: GENERAL: Mildly ill in appearance, wearing glasses and a mask. EYE EXAM: Normal conjunctiva. PERRL, no anisocoria and EOM's grossly intact w/o pain. NECK: Supple, no nuchal rigidity, no adenopathy, non-tender. No signs of meningismus. LUNGS: Clear to auscultation. Normal chest wall mechanics. HEART: NSR, no MRG. ABDOMEN: Abdomen soft, non-tender, normo-active bowel sounds, no masses, no rebound or guarding. BACK: No CVA TTP. SKIN: No rashes and bruising to the right upper back without TTP. UPPER EXTREMITIES: Upper extremities are grossly normal. LOWER EXTREMITIES: Left AKA noted. NEURO EXAM: A&O x3, cranial nerves II-XII grossly intact, normal speech, moves all 4 extremities on command w/o issue. Differential diagnoses: Infection, dehydration, metabolic abnormality, hypo/hyperglycemia, electrolyte disturbance, anemia, hypoxia, cardiac sources, intracerebral event, toxicologic, neurologic, as well as other pathologies. Course: Patient was seen and evaluated the bedside. Full history physical exam was performed. EKG: Indication: Weakness Normal sinus rhythm, rate of 77, normal QRS T wave inversions anteriorly laterally and inferiorly. Imaging Studies: Radiology results as stated below per my review in the radiologist's interpretation: XR chest 1V portable CLINICAL HISTORY: SEPSIS COMPARISON STUDY: 02/27/2020 FINDINGS: The heart is enlarged. There is mild prominence of interstitial markings likely secondary to pulmonary vascular congestion. There is no lobar consolidation. There are no pleural effusions.[Arthritic changes are present within the left shoulder. IMPRESSION: Cardiomegaly with radiographic evidence of mild congestive failure. No evidence of lobar consolidation ACT 112: Negative or not required by law. Electronically signed by: Gary Gilliam M.D. 04/03/2020 2:36 PM Dictated: 04/03/20 1432 Transcribed: 04/03/20 1432 Cardiac monitoring: An order was placed for continuous cardiac monitoring. The monitor shows a rate of 67 with sinus rhythm. MDM: Patient did present with concern as a doctor referral and some increasing fatigue and tiredness. Patient does not have any other acute symptomatic complaints. The patient does have some bruising to the right upper back but s tates that this was from a fall approximately 1 month ago. The patient is on Coumadin. The patient did have blood work completed along with ammonia. The patient's pro-[place] is not elevated troponin is detectable but not elevated. Bilirubin of 2.1 virtual baseline. Ammonia is not grossly elevated at 32. Lactate normal. The patient does have significant acute renal failure with an elevated BUN and creatinine of 113 and 5.9 respectively. This is an acute change for the patient. Patient is therapeutic with regard to the INR 2.7 with hemoglobin of 8.7. The patient's hemoglobin at discharge 1 month prior was 10.7. The patient denies any GI bleeding. I did speak with the on-call insurance defense attorney Dr. Gaitan and explained the situation. After discussion with the patient's presentation and lab values thinking this may be an element of hepatorenal syndrome. He did recommend a trial of normal saline at 1 to 2 L per 24 hours along with albumin 25 g every 8 H. Will need to be gentle given the patient's known history of CHF. He did state that if this does not improve his symptoms they would do a trial of midodrine and octreotide. I did convey these recommendations to the on-call hospitalist. I did speak with the on-call hospitalist and the patient was admitted to the medicine service under Dr. Rebollar. Past Med/Surg History Medical History Afib Amputation of left lower extremity below knee Anemia Bronchitis CHF (congestive heart failure) Diabetes GERD (gastroesophageal reflux disease) Gout Hyperlipidemia Hypertension Thrombocytosis Surgical History History of appendectomy History of cholecystectomy Mechanical heart valve present 1997 S/P AKA (above knee amputation) unilateral Family History Other Family history of diabetes mellitus Social History Smoking Status: Never smoker Second Hand Exposure: No; Hx Alcohol Use: No Hx Substance Use: No Preferred Language: Faroese Communication Ability: Effective Visual Impairment: No Limitations Border Measurer And Cutter Required: No Beliefs That Will Affect Care: None marital status: Current Living Situation: Family Feels Safe at Home: Yes Assistive Devices: None Allergies Allergies Allergy/AdvReac Type Severity Reaction Status Date / Time enoxaparin Allergy Unknown Illness Verified 04/03/20 17:25 morphine Allergy Unknown Unknown Verified 04/03/20 17:26 adhesive AdvReac Unknown SORES WITH Verified 04/03/20 17:26 "SOME TAPE" oxycodone AdvReac Unknown HALLUCINATI Verified 04/03/20 17:26 ONS Home Meds Home Medications Medication Instructions Recorded Confirmed allopurinol [Zyloprim] 300 mg PO QAM 01/09/18 04/03/20 gemfibrozil [Lopid] 600 mg PO QAM 01/09/18 04/03/20 glipizide [Glucotrol] 10 mg PO BID 01/09/18 04/03/20 pantoprazole [Protonix] 40 mg PO QAM 01/09/18 04/03/20 Lantus Solostar U-100 Insulin 15 unit SUBCUT DAILY@2100 11/12/18 04/03/20 pregabalin 50 mg PO BID 03/22/19 04/03/20 metoprolol tartrate 100 mg tablet 100 mg PO BID 05/01/19 04/03/20 furosemide 40 mg tablet 80 mg PO BID tab 09/04/19 04/03/20 levothyroxine 50 mcg PO QAM 02/22/20 04/03/20 warfarin 2.5 mg PO 3XWK 02/22/20 04/03/20 warfarin 5 mg PO 4XWK 02/22/20 04/03/20 Previous Rx's Medication Instructions Recorded aspirin [Ecotrin Low Strength] 81 mg PO QAM #30 tab 01/14/18 Results & Data (ED) Vital Signs Vital Signs - 24 hr 04/03/20 13:36 04/03/20 14:46 04/03/20 14:49 Temperature 35.5 C L Temperature Source Temporal Artery Scan Pulse Rate 117 H 77 Pulse Rate [Right Finger] Pulse Rhythm Regular Pulse Strength Normal Respiratory Rate 20 18 18 Respiratory Effort / Characteristics Non-Labored Non-Labored Respiratory Depth Normal Respiratory Pattern Regular Blood Pressure 128/77 107/64 Blood Pressure [Right Arm] Blood Pressure Mean 94 75 Blood Pressure Mean [Right Arm] Blood Pressure Position Sitting Pulse Oximetry 98 95 Oxygen Delivery Method Room Air Room Air Sepsis Recent Fever Within 48 Hours No Sepsis New/Unexplained Change in Mental Status No Sepsis Action Taken by Nursing No Action Required 04/03/20 15:05 04/03/20 15:06 04/03/20 15:30 Temperature Temperature Source Pulse Rate 79 74 Pulse Rate [Right Finger] 67 Pulse Rhythm Pulse Strength Respiratory Rate 18 15 16 Respiratory Effort / Characteristics Respiratory Depth Respiratory Pattern Blood Pressure Blood Pressure [Right Arm] 107/64 Blood Pressure Mean Blood Pressure Mean [Right Arm] 78 Blood Pressure Position Pulse Oximetry 96 Oxygen Delivery Method Room Air Sepsis Recent Fever Within 48 Hours Sepsis New/Unexplained Change in Mental Status Sepsis Action Taken by Nursing 04/03/20 16:00 04/03/20 16:27 04/03/20 16:30 Temperature Temperature Source Pulse Rate 78 74 81 Pulse Rate [Right Finger] Pulse Rhythm Pulse Strength Respiratory Rate 17 17 20 Respiratory Effort / Characteristics Respiratory Depth Respiratory Pattern Blood Pressure 111/88 Blood Pressure [Right Arm] Blood Pressure Mean 91 Blood Pressure Mean [Right Arm] Blood Pressure Position Pulse Oximetry Oxygen Delivery Method Sepsis Recent Fever Within 48 Hours Sepsis New/Unexplained Change in Mental Status Sepsis Action Taken by Nursing 04/03/20 16:45 04/03/20 18:33 Temperature Temperature Source Pulse Rate 75 Pulse Rate [Right Finger] Pulse Rhythm Pulse Strength Respiratory Rate 17 Respiratory Effort / Characteristics Respiratory Depth Respiratory Pattern Blood Pressure 101/63 Blood Pressure [Right Arm] Blood Pressure Mean 75 Blood Pressure Mean [Right Arm] Blood Pressure Position Pulse Oximetry Oxygen Delivery Method Room Air Sepsis Recent Fever Within 48 Hours Sepsis New/Unexplained Change in Mental Status Sepsis Action Taken by [facility] Medications Current Medication List: was personally reviewed by me Laboratory Data Attestation: I reviewed the patient's lab results. Result diagrams: 04/03/20 14:41 04/03/20 14:41 Lab Results 04/03/20 04/03/20 04/03/20 Range/Units 14:41 14:41 14:41 WBC 11.62 H (4.8-10.8) K/uL RBC 2.78 L (4.7-6.1) M/uL Hgb 8.7 L (14.0-18.0) g/dL Hct 28.3 L (42-52) % MCV 101.8 H (80-100) fL MCH 31.3 (25-34) pg MCHC 30.7 L (32-36) g/dL RDW Std Deviation 71.8 H (36.4-46.3) fL RDW Coeff of Jose 19.9 H (11.5-14.5) % Plt Count 460 H (130-400) K/uL MPV 12.0 H (7.4-10.4) fL Immature Gran % (Auto) 2.6 % Neut % (Auto) 70.3 % Lymph % (Auto) 15.9 % [place] % (Auto) 10.2 % Eos % (Auto) 0.9 % Baso % (Auto) 0.1 % Neut # (Auto) 8.16 H (1.4-6.5) K/uL Lymph # (Auto) 1.85 (1.2-3.4) K/uL [place] # (Auto) 1.19 H (0.11-0.59) K/uL Eos # (Auto) 0.11 (0-0.5) K/uL Baso # (Auto) 0.01 (0-0.2) K/uL Immature Gran # (Auto) 0.30 H (0.00-0.02) K/uL PT 26.6 H (9.0-12.0) Seconds INR 2.7 H (0.9-1.1) APTT 49.8 H* (21.0-31.0) Seconds PTT Ratio 1.8 Sodium 130 L (136-145) mmol/L Potassium 4.8 (3.5-5.1) mmol/L Chloride 93 L (98-107) mmol/L Carbon Dioxide 26 (21-32) mmol/L Anion Gap 11.0 (3-11) BUN 113 H (7-18) mg/dl Creatinine 5.94 H* (0.6-1.4) mg/dl Est Cr Clr Drug Dosing Not Reportable Est GFR ( Amer) 9.9 Est GFR (Non-Af Amer) 8.5 BUN/Creatinine Ratio 19.0 (10-20) Glucose 80 (70-99) mg/dl Lactate (0.4-2.0) mmol/L Calcium 8.7 (8.5-10.1) mg/dl Magnesium 3.2 H (1.8-2.4) mg/dl Total Bilirubin 2.1 H (0.2-1) mg/dl AST 30 (15-37) U/L ALT 15 (12-78) U/L Alkaline Phosphatase 183 H (45-117) U/L Ammonia (11-32) umol/L Troponin I 0.027 (0-0.045) ng/ml NT-Pro-B Natriuret Pep (0-900) pg/ml Total Protein 7.8 (6.4-8.2) gm/dl Albumin 2.8 L (3.4-5.0) gm/dl Globulin 5.0 H (2.5-4.0) gm/dl Albumin/Globulin Ratio 0.6 L (0.9-2) Procalcitonin (0-0.5) ng/ml Urine Color Urine Appearance (Clear) Urine pH (4.5-7.5) Ur Specific [place] (1.000-1.030) Urine Protein (Negative) Urine Glucose (UA) (Negative) Urine Ketones (Negative) Urine Blood (Negative) Urine Nitrite (Negative) Urine Bilirubin (Negative) Urine Urobilinogen (Negative) Ur Leukocyte Esterase (Negative) Urine WBC (Auto) (0-5) /hpf Urine RBC (Auto) (0-4) /hpf U Hyaline Cast (Auto) (0-5) /lpf U Epithel Cells (Auto) (0-5) /lpf Urine Bacteria (Auto) (Negative) Urine Yeast SARS-CoV-2 Ag (Rapid) (Negative) 04/03/20 04/03/20 04/03/20 Range/Units 14:41 14:41 14:41 WBC (4.8-10.8) K/uL RBC (4.7-6.1) M/uL Hgb (14.0-18.0) g/dL Hct (42-52) % MCV (80-100) fL MCH (25-34) pg MCHC (32-36) g/dL RDW Std Deviation (36.4-46.3) fL RDW Coeff of Jose (11.5-14.5) % Plt Count (130-400) K/uL MPV (7.4-10.4) fL Immature Gran % (Auto) % Neut % (Auto) % Lymph % (Auto) % [place] % (Auto) % Eos % (Auto) % Baso % (Auto) % Neut # (Auto) (1.4-6.5) K/uL Lymph # (Auto) (1.2-3.4) K/uL [place] # (Auto) (0.11-0.59) K/uL Eos # (Auto) (0-0.5) K/uL Baso # (Auto) (0-0.2) K/uL Immature Gran # (Auto) (0.00-0.02) K/uL PT (9.0-12.0) Seconds INR (0.9-1.1) APTT (21.0-31.0) Seconds PTT Ratio Sodium (136-145) mmol/L Potassium (3.5-5.1) mmol/L Chloride (98-107) mmol/L Carbon Dioxide (21-32) mmol/L Anion Gap (3-11) BUN (7-18) mg/dl Creatinine (0.6-1.4) mg/dl Est Cr Clr Drug Dosing Est GFR ( Amer) Est GFR (Non-Af Amer) BUN/Creatinine Ratio (10-20) Glucose (70-99) mg/dl Lactate 1.7 (0.4-2.0) mmol/L Calcium (8.5-10.1) mg/dl Magnesium (1.8-2.4) mg/dl Total Bilirubin (0.2-1) mg/dl AST (15-37) U/L ALT (12-78) U/L Alkaline Phosphatase (45-117) U/L Ammonia 32.0 (11-32) umol/L Troponin I (0-0.045) ng/ml NT-Pro-B Natriuret Pep (0-900) pg/ml Total Protein (6.4-8.2) gm/dl Albumin (3.4-5.0) gm/dl Globulin (2.5-4.0) gm/dl Albumin/Globulin Ratio (0.9-2) Procalcitonin 0.20 (0-0.5) ng/ml Urine Color Urine Appearance (Clear) Urine pH (4.5-7.5) Ur Specific [place] (1.000-1.030) Urine Protein (Negative) Urine Glucose (UA) (Negative) Urine Ketones (Negative) Urine Blood (Negative) Urine Nitrite (Negative) Urine Bilirubin (Negative) Urine Urobilinogen (Negative) Ur Leukocyte Esterase (Negative) Urine WBC (Auto) (0-5) /hpf Urine RBC (Auto) (0-4) /hpf U Hyaline Cast (Auto) (0-5) /lpf U Epithel Cells (Auto) (0-5) /lpf Urine Bacteria (Auto) (Negative) Urine Yeast SARS-CoV-2 Ag (Rapid) (Negative) 04/03/20 04/03/20 04/03/20 Range/Units 14:41 17:42 Unknown WBC (4.8-10.8) K/uL RBC (4.7-6.1) M/uL Hgb (14.0-18.0) g/dL Hct (42-52) % MCV (80-100) fL MCH (25-34) pg MCHC (32-36) g/dL RDW Std Deviation (36.4-46.3) fL RDW Coeff of Jose (11.5-14.5) % Plt Count (130-400) K/uL MPV (7.4-10.4) fL Immature Gran % (Auto) % Neut % (Auto) % Lymph % (Auto) % [place] % (Auto) % Eos % (Auto) % Baso % (Auto) % Neut # (Auto) (1.4-6.5) K/uL Lymph # (Auto) (1.2-3.4) K/uL [place] # (Auto) (0.11-0.59) K/uL Eos # (Auto) (0-0.5) K/uL Baso # (Auto) (0-0.2) K/uL Immature Gran # (Auto) (0.00-0.02) K/uL PT (9.0-12.0) Seconds INR (0.9-1.1) APTT (21.0-31.0) Seconds PTT Ratio Sodium (136-145) mmol/L Potassium (3.5-5.1) mmol/L Chloride (98-107) mmol/L Carbon Dioxide (21-32) mmol/L Anion Gap (3-11) BUN (7-18) mg/dl Creatinine (0.6-1.4) mg/dl Est Cr Clr Drug Dosing Est GFR ( Amer) Est GFR (Non-Af Amer) BUN/Creatinine Ratio (10-20) Glucose (70-99) mg/dl Lactate (0.4-2.0) mmol/L Calcium (8.5-10.1) mg/dl Magnesium (1.8-2.4) mg/dl Total Bilirubin (0.2-1) mg/dl AST (15-37) U/L ALT (12-78) U/L Alkaline Phosphatase (45-117) U/L Ammonia (11-32) umol/L Troponin I (0-0.045) ng/ml NT-Pro-B Natriuret Pep 37197 H (0-900) pg/ml Total Protein (6.4-8.2) gm/dl Albumin (3.4-5.0) gm/dl Globulin (2.5-4.0) gm/dl Albumin/Globulin Ratio (0.9-2) Procalcitonin (0-0.5) ng/ml Urine Color Dark Yellow Urine Appearance Cloudy A (Clear) Urine pH 5.0 (4.5-7.5) Ur Specific [place] 1.018 (1.000-1.030) Urine Protein Trace H (Negative) Urine Glucose (UA) Negative (Negative) Urine Ketones Trace H (Negative) Urine Blood 1+ H (Negative) Urine Nitrite Negative (Negative) Urine Bilirubin Negative (Negative) Urine Urobilinogen Negative (Negative) Ur Leukocyte Esterase Trace H (Negative) Urine WBC (Auto) 1-5 (0-5) /hpf Urine RBC (Auto) 5-10 H (0-4) /hpf U Hyaline Cast (Auto) 10-30 H (0-5) /lpf U Epithel Cells (Auto) 10-20 H (0-5) /lpf Urine Bacteria (Auto) Negative (Negative) Urine Yeast Not Reportable SARS-CoV-2 Ag (Rapid) Negative (Negative) Administered Medications Discontinued Medications Sodium Chloride (Nss 1000ml) 500 mls @ 999 mls/hr IV .Q31M ONE Stop: 04/03/20 17:29 Last Infusion: 04/03/20 18:32 Dose: 0 mls/hr Documented by: [id number] Admin: 04/03/20 17:45 Dose: 999 mls/hr Documented by: [id number] Discharge Plan Visit Data Chief Complaint: Illness Stated Complaint: ILLNESS - SENT BY ED Provider: Eligio Padilla Discharge Problem: Acute renal failure (ARF), Acute uremia Patient Disposition: Admitted As Inpatient Discharge Instructions Interventions: ED Discharge Assessment Last Done: 04/03/20 18:33 Forms Stand Alone Forms: My [facility] Prescriptions Prescriptions: No Action furosemide [Lasix] 40 mg tablet 80 mg PO BID RF: 0 metoprolol tartrate 100 mg tablet 100 mg PO BID RF: 0 Lantus Solostar U-100 Insulin 100 unit/mL (3 mL) insulin pen 15 unit subcut DAILY@2100 RF: 0 glipizide [Glucotrol] 10 mg tablet 10 mg PO BID RF: 0 gemfibrozil [Lopid] 600 mg tablet 600 mg PO QAM RF: 0 pantoprazole [Protonix] 40 mg tablet,delayed release (DR/EC) 40 mg PO QAM RF: 0 allopurinol [Zyloprim] 300 mg tablet 300 mg PO QAM RF: 0 aspirin [Ecotrin Low Strength] 81 mg Tablet,Delayed Release (Dr/Ec) 81 mg PO QAM Qty: 30 RF: 0 pregabalin 50 mg capsule 50 mg PO BID RF: 0 levothyroxine 50 mcg tablet 50 mcg PO QAM RF: 0 warfarin 5 mg tablet 5 mg PO 4XWK RF: 0 warfarin 5 mg tablet 2.5 mg PO 3XWK RF: 0 Referrals Referrals: Leonel Manriquez MD [Primary Care Provider] - Discharge Problem: Acute renal failure (ARF) Qualifiers: Acute renal failure type: unspecified Qualified Code(s): N17.9 - Acute kidney failure, unspecified
--- NOTE | 2020-04-03 14:37 | XRay Report ---
XR chest 1V portable CLINICAL HISTORY: SEPSIS COMPARISON STUDY: 02/27/2020 FINDINGS: The heart is enlarged. There is mild prominence of interstitial markings likely secondary t o pulmonary vascular congestion. There is no lobar consolidation. There are no pleural effusions.[Art hritic changes are present within the left shoulder. IMPRESSION: Cardiomegaly with radiographic evidence of mild congestive failure. No evidence of lobar consolidation ACT 112: Negative or not required by law. Electronically signed by: Gary Gilliam M.D. 04/03/2020 2:36 PM
[2020-04-03 14:51] LABS: Basophils # (auto) 0.01 K/uL (0-0.2); Basophils % (auto) 0.1 %; Eosinophils # (auto) 0.11 K/uL (0-0.5); Eosinophils % (auto) 0.9 %; Hematocrit (blood only) 28.3 % (42-52); Hemoglobin 8.7 g/dL (14.0-18.0); Immature Granulocytes % (auto) 2.6 %; Lymphocytes # (auto) 1.85 K/uL (1.2-3.4); Lymphocytes % (auto) 15.9 %; Mean Corpuscular Hemoglobin 31.3 pg (25-34); Mean Corpuscular Hgb Conc 30.7 g/dL (32-36); Mean Corpuscular Volume 101.8 fL (80-100); Monocytes # (auto) 1.19 K/uL (0.11-0.59); Monocytes % (auto) 10.2 %; Neutrophils # (auto) 8.16 K/uL (1.4-6.5); Neutrophils % (auto) 70.3 %; Platelet Count 460 K/uL (130-400); RDW Coefficient of Variation 19.9 % (11.5-14.5); RDW Standard Deviation 71.8 fL (36.4-46.3); Red Blood Count 2.78 M/uL (4.7-6.1); White Blood Count 11.62 K/uL (4.8-10.8)
--- NOTE | 2020-04-03 15:00 | Electrocardiogram Report ---
Test Reason : Blood Pressure : / mmHG Vent. Rate : 077 BPM Atrial Rate : 079 BPM P-R Int : 000 ms QRS Dur : 104 ms QT Int : 370 ms P-R-T Axes : 000 -08 180 degrees QTc Int : 418 ms Sinus rhythm Abnormal ECG When compared with ECG of 22-FEB-2020 15:25, Sinus rhythm has replaced atrial fibrillation Minimal criteria for Inferior infarct are no longer Present T wave inversion less evident in Anterior leads Confirmed by Hernesto Fernandez ([id number]) on 04/03/2020 3:00:23 PM Referred By: ED Confirmed By:Jose G Fernandez
[2020-04-03 15:11] LABS: INR 2.7 (0.9-1.1); Partial Thromboplastin Ratio 1.8; Prothrombin Time 26.6 Seconds (9.0-12.0)
[2020-04-03 15:14] LABS: Partial Thromboplastin Time 49.8 Seconds (21.0-31.0)
[2020-04-03 15:23] LABS: Alanine Aminotransferase 15 U/L (12-78); Albumin Globulin Ratio 0.6 (0.9-2); Albumin Level 2.8 gm/dl (3.4-5.0); Alkaline Phosphatase 183 U/L (45-117); Aspartate Aminotransferase 30 U/L (15-37); Bilirubin,Total 2.1 mg/dl (0.2-1); Blood Urea Nitrogen 113 mg/dl (7-18); Calcium 8.7 mg/dl (8.5-10.1); Carbon Dioxide 26 mmol/L (21-32); Chloride 93 mmol/L (98-107); Est GFR (African American) 9.9; Est GFR (Non-African American) 8.5; Glucose 80 mg/dl (70-99); Magnesium 3.2 mg/dl (1.8-2.4); Potassium 4.8 mmol/L (3.5-5.1); Sodium 130 mmol/L (136-145); Total Protein 7.8 gm/dl (6.4-8.2); Troponin I 0.027 ng/ml (0-0.045)
--- NOTE | 2020-04-03 15:58 | History & Physical Report ---
Date of Service April 03, 2020 Assessment & Plan (1) Acute renal failure (ARF): - Admit to [facility] tele - Cr significantly elevated compared to 1 month ago. Cr. 5.94 up from 2.01 - Volume overloaded in RLE as well as in the left thigh - Will hold lasix for now, give NSS 500mL bolus with adequate EF, and albumin IV for fluid redistribution. - Nephro consulted for possible needs for dialysis - Follow am Bmp - Pt discharged home from [facility] yesterday - Hx of UTI with enterococcus, previous admission was pansensitive - can cover with levaquin after obtaining ua and culture. (2) Acute uremia: - Urine not yet obtained, elevated BUN of 113 compared to 54 at time of last admission - Nephro consult - Follow am bmp - Possible that altered mental status is due to uremic encephalopathy vs hepatic encephalopathy presently. (3) Acute diastolic (congestive) heart failure: - Appears volume overloaded, however with ARF will hold lasix and give small amount of fluid as above - Preserved EF of 50-55% from 02/23/20 - Continue metoprolol tartrate 100 mg BID (4) Hyperlipidemia: - Cont Lopid 600 mg QAM (5) Mechanical heart valve present: - Inserted in 1988, prosthetic aortic valve - Risk for endocarditis with valve in place - Cover with levaquin after obtaining urine as above, wise cath placement - Afebrile, no leukocytosis. 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 INR is 2.7, follow with am labs (8) Cirrhosis: - Thought to be CHANG without prior etoh use - Hep C neg, Hep BsAg negative - Hx of hepatic encephalopathy-patient reports feeling dopey recently, will hold lactulose for now with likely uremic encephalopathy vs hepatic encephalopathy currently, once resume then titrate for 2-3 BMs daily - ammonia 32 on admission - Has been previously requested to have GI follow-up, as patient just got out of [facility], he had not yet been able to follow-up with GI (9) Hyponatremia: - 130 on admission - Fluid restrict with diet, will give NSS x 500mL once (10) Diabetes: - Hold glipizide -ISS with Accu-Cheks ACHS -Continue Lantus 15 units hs -Check A1c with a.m. labs , 6.1 on 01/12/20 (11) Gout: -Continue allopurinol (12) GERD (gastroesophageal reflux disease): -Continue Protonix daily (13) Morbid obesity with BMI of 40.0-44.9, adult: -History of such, diet and exercise encouraged Called and discussed the pts care with over the phone, all her questions and concerns were addressed. DVT ppx: - teds, scds, holding Coumadin as above CODE: DNR/DNI Dispo: From home, likely to remain in the hospital x 1-2 days History of Present Illness Primary Care Provider: Leonel Manriquez MD This is a 74-year-old male with PMHx of chronic diastolic CHF, mechanical valve on Coumadin, HTN, HLD, COPD, DM type II, morbid obesity, cirrhosis, hepatic encephalopathy, hyperammonemia, CKD stage III, AKA of left leg, Gout, GERD, who presents to the ER after being sent by PCP. The patient's took the patient to his PCP this morning to discuss Xifaxin medication for cirrhosis, however once there was send to the ER for feeling unwell, decreased urine output. Pt notes that he voided 200 mL at midnight last night, and then 100 mL this morning after waking up. He did not eat or drink anything today, and was more swollen in his R leg, left thigh, and pt reports feeling "dopey" for the past 2 weeks. He was just discharged home from [facility] yesterday. PT noted to have elevated Cr of 5.94 with hyponatremia 130, Hgb is decreased to 8.7, HCT 28.3, alk phos 183, BNP [id number]. He has not yet provided a urine sample, will plan to have straight cath obtained now. Pt is complaining of pain on his butt, report he does not walk at baseline, uses motorized scooter Allergies Allergy/AdvReac Type Severity Reaction Status Date / Time enoxaparin Allergy Unknown Illness Verified 04/03/20 17:25 morphine Allergy Unknown Unknown Verified 04/03/20 17:26 adhesive AdvReac Unknown SORES WITH Verified 04/03/20 17:26 "SOME TAPE" oxycodone AdvReac Unknown HALLUCINATI Verified 04/03/20 17:26 ONS Home Medications Medication Instructions Recorded Confirmed Type allopurinol [Zyloprim] 300 mg PO QAM 01/09/18 04/03/20 History gemfibrozil [Lopid] 600 mg PO QAM 01/09/18 04/03/20 History glipizide [Glucotrol] 10 mg PO BID 01/09/18 04/03/20 History pantoprazole [Protonix] 40 mg PO QAM 01/09/18 04/03/20 History aspirin [Ecotrin Low Strength] 81 mg PO QAM #30 tab 01/14/18 04/03/20 Rx Lantus Solostar U-100 Insulin 15 unit SUBCUT DAILY@2100 11/12/18 04/03/20 History pregabalin 50 mg PO BID 03/22/19 04/03/20 History metoprolol tartrate 100 mg tablet 100 mg PO BID 05/01/19 04/03/20 History furosemide 40 mg tablet 80 mg PO BID tab 09/04/19 04/03/20 History levothyroxine 50 mcg PO QAM 02/22/20 04/03/20 History warfarin 2.5 mg PO 3XWK 02/22/20 04/03/20 History warfarin 5 mg PO 4XWK 02/22/20 04/03/20 History Past Med/Surg History Medical History Afib Amputation of left lower extremity below knee Anemia Bronchitis CHF (congestive heart failure) Diabetes GERD (gastroesophageal reflux disease) Gout Hyperlipidemia Hypertension Thrombocytosis Surgical History History of appendectomy History of cholecystectomy Mechanical heart valve present 1997 S/P AKA (above knee amputation) unilateral Family History Other Family history of diabetes mellitus Social History Smoking Status: Unknown if ever smoked Second Hand Exposure: No; Hx Alcohol Use: No Hx Substance Use: No Preferred Language: Kiswahili Communication Ability: Effective Visual Impairment: No Limitations Cloth Tearer Required: No Beliefs That Will Affect Care: None marital status: Current Living Situation: Family Other Information That Helps Us Care for You: No Feels Safe at Home: Yes Safety Concerns: Feels Safe At This Time Assistive Devices: Glasses and Wheelchair Review of Systems Review of Systems: Constitutional: No fever, sweats or chills Eyes: No diplopia, no worsening or blurred vision ENT: normal hearing, no trouble swallowing Respiratory: No cough, sputum, dyspnea at rest or on exertion Cardiovascular: No chest pain, tightness or palpitations Abdomen: No pain, nausea, vomiting, diarrhea or constipation Musculoskeletal: No joint pain, calf pain, swelling Neurologic: no focal weakness, numbness/tingling, or balance problems Psychiatric: No anxiety or depression Skin: No rash or itch, pain over sacral region Physical Exam Physical Exam: General: awake, alert, no apparent distress, + morbidly obese Head: Normocephalic, atraumatic ENT: PERRL, EOMI, no pharyngeal exudate, mucous membranes dry Chest: Clear to auscultation, on room air, no adventitious breath sounds Back: Patient with multiple areas of ecchymosis of the right shoulder blade region and right flank region Cardiac: Regular rate and rhythm, + mechanical valve click, no JVD, normal peripheral pulses, good capillary refill Abdominal: NABS x 4 quadrants, soft, nondistended, nontender to palpation, no rebound or guarding Extremities: Left AKA, 2 device pitting edema in LLE, no erythema, calfs nontender to palpation Psych: Depressed mood and flat affect Neuro: AAO x 3, strength intact bilaterally and rated 3/5 ble, does not ambulate at baseline, no gross motor deficits, speech is slowed but clear, no peripheral sensory deficits Skin: Erythema over sacral decub region, no ulceration or skin breakdown. Areas of ecchymosis over R shoulder blade region and upper extremities Results & Data Results & Data ([facility]) Vital Signs (Past 12 Hours) Vital Signs Temp Pulse Pulse Resp BP BP Pulse Ox 04/03/20 15:05 67 18 107/64 96 04/03/20 14:49 18 95 04/03/20 13:36 35.5 C L 117 H 20 128/77 98 Supervising Physician Co-Signing Physician Notes Attending addendum: I have physically seen this patient, have supervised the KATTY's activities, and agree with the H&P unless as otherwise noted. Assessment and Plan: Acute renal failure on chronic kidney disease- Creatinine 5.94 for admission, with baseline 1.99-2.72. Hold furosemide. Rehydrate with IV fluids. Serial BMP and magnesium levels Follow urine culture and sensitivity Levofloxacin 250 mg IV daily for empiric coverage of previous organisms: Enterococcus and E. coli Consult nephrology Chronic diastolic heart failure/hypertension- Hold furosemide. Continue metoprolol tartrate 100 mg p.o. twice daily with hold parameters Hold warfarin. Follow PT/INR Diabetes mellitus- Hold glipizide. Continue Lantus 15 units subcu at bedtime Placed on Accu-Cheks before meals and at bedtime with NovoLog coverage per scale Remaining orders and notations as noted PG Care Time/CCT Total # of Minutes Spent Total Time Spent with Patient: Total time spent is greater than 50% in coordination of care (as documented) at patient's floor/unit and/or counseling patient: Coding Level of Care Code 96132 Initial Inpt Care Lvl 3 Diagnoses Acute renal failure (ARF) N17.9 Acute renal failure type: unspecified Acute uremia N19 Acute diastolic (congestive) heart failure I50.31 Hyperlipidemia E78.5 Hyperlipidemia type: unspecified Mechanical heart valve present Z95.2 Hypertension I10 Hypertension type: essential hypertension Anemia D64.9 Anemia type: unspecified type Cirrhosis K74.60; R18.8 Ascites presence: with ascites Hepatic cirrhosis type: unspecified hepatic cirrhosis Hyponatremia E87.1 Diabetes E11.42; Z79.4 Diabetes mellitus complication detail: with polyneuropathy Diabetes mellitus complication status: with neurologic complications 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 Diabetes mellitus type: type 2 Gout M10.9 Chronicity: unspecified Gout etiology: unspecified cause Gout site: unspecified site GERD (gastroesophageal reflux disease) K21.9 Esophagitis presence: esophagitis presence not specified Morbid obesity with BMI of 40.0-44.9, adult E66.01; Z68.41 (1) Diabetes Diabetes mellitus complication detail: with polyneuropathy Diabetes mellitus complication status: with neurologic complications Diabetes mellitus mcfp insulin use: with mcfp use Diabetes mellitus type: type 2 Qualified Code(s): E11.42 - Type 2 diabetes mellitus with diabetic polyneuropathy; 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 (2) Gout Chronicity: unspecified Gout etiology: unspecified cause Gout site: unspecified site Qualified Code(s): M10.9 - Gout, unspecified (3) Acute renal failure (ARF) Acute renal failure type: unspecified Qualified Code(s): N17.9 - Acute kidney failure, unspecified (4) Anemia Anemia type: unspecified type Qualified Code(s): D64.9 - Anemia, unspecified (5) Hyperlipidemia Hyperlipidemia type: unspecified Qualified Code(s): E78.5 - Hyperlipidemia, unspecified (6) Cirrhosis Ascites presence: with ascites Hepatic cirrhosis type: unspecified hepatic cirrhosis Qualified Code(s): K74.60 - Unspecified cirrhosis of liver; R18.8 - Other ascites (7) GERD (gastroesophageal reflux disease) Esophagitis presence: esophagitis presence not specified Qualified Code(s): K21.9 - Gastro-esophageal reflux disease without esophagitis (8) Hypertension Hypertension type: essential hypertension Qualified Code(s): I10 - Essential (primary) hypertension
[2020-04-03] MEDS ORDERED: SODIUM CHLORIDE 0.9% 1000ML 500 ML IV ONE (16:59)
[2020-04-03 18:00] LABS: Appearance Urine Cloudy (Clear); Bacteria Urine Automated Negative (Negative); Bilirubin Urine Negative (Negative); Blood Urine 1+ (Negative); Color Urine Dark Yellow; Glucose Urine UA Negative (Negative); Ketones Urine Trace (Negative); Leukocyte Esterase Urine Trace (Negative); Nitrite Urine Negative (Negative); Protein Urine Trace (Negative); Specific Gravity Urine 1.018 (1.000-1.030); Urobilinogen Urine Negative (Negative)
[2020-04-03] MEDS ORDERED: WARFARIN SOD 5 MG TAB PO SCH (19:35)
[2020-04-03] MEDS ORDERED: GLUCAGON FOR INJ 1 MG VIAL SQ PRN (19:35)
[2020-04-03] MEDS ORDERED: WARFARIN SOD 2.5 MG TAB PO SCH (19:35)
[2020-04-03] MEDS ORDERED: GLUCOSE 40% GEL 15 GM TUBE PO PRN (19:35)
[2020-04-03] MEDS ORDERED: GLUCOSE 10 TABS/TUBE PO PRN (19:35)
[2020-04-03 20:07] LABS: Ferritin 121.9 ng/ml (8-388)
[2020-04-03] MEDS: ALBUMIN 25% 12.5 GM/50 ML VIAL IV SCH ×2 (21:16→22:20)
[2020-04-03] MEDS: WARFARIN SOD 5 MG TAB PO SCH ×2 (21:19→21:31)
[2020-04-03] MEDS: INSULIN ASPART 100 UNITS/ML 3 ML PEN SC SCH (21:19)
[2020-04-03] MEDS: INSULIN GLARGINE SOLOSTAR 100 UNITS/ML 3 ML PEN SQ SCH (21:20)
[2020-04-03] MEDS: METOPROLOL TARTRATE 100 MG TAB PO SCH ×2 (21:21→21:31)
[2020-04-03] MEDS: levoFLOXacin/D5W 250 MG/50 ML BAG IV SCH (21:21)
[2020-04-03] MEDS: PREGABALIN 50 MG CAP PO SCH (21:26)
[2020-04-03 23:42] LABS: Calcium 8.6 mg/dl (8.5-10.1); Creatinine Clr Calc Pharmacy 15.3 ml/min; Est GFR (African American) 9.9; Est GFR (Non-African American) 8.5; Potassium 4.8 mmol/L (3.5-5.1)
[2020-04-04 00:09] LABS: Folate (Folic Acid) 8.5 ng/ml (>5.38)
[2020-04-04 05:50] LABS: Hematocrit (blood only) 27.5 % (42-52); Hemoglobin 8.3 g/dL (14.0-18.0); Mean Corpuscular Hemoglobin 30.7 pg (25-34); Mean Corpuscular Hgb Conc 30.2 g/dL (32-36); Mean Corpuscular Volume 101.9 fL (80-100); Mean Platelet Volume 12.1 fL (7.4-10.4); Platelet Count 508 K/uL (130-400); RDW Standard Deviation 71.9 fL (36.4-46.3); White Blood Count 13.33 K/uL (4.8-10.8)
[2020-04-04 06:01] LABS: INR 2.7 (0.9-1.1); Prothrombin Time 26.6 Seconds (9.0-12.0)
[2020-04-04] MEDS: LEVOTHYROXINE SODIUM 50 MCG TABLET PO SCH (06:20)
[2020-04-04 06:30] LABS: Albumin Globulin Ratio 0.6 (0.9-2); Albumin Level 2.8 gm/dl (3.4-5.0); BUN Creatinine Ratio 19.8 (10-20); Bilirubin,Total 2.3 mg/dl (0.2-1); Calcium 8.5 mg/dl (8.5-10.1); Creatinine Clr Calc Pharmacy 15.2 ml/min; Est GFR (African American) 9.8; Est GFR (Non-African American) 8.5; Globulin 4.6 gm/dl (2.5-4.0); Potassium 4.7 mmol/L (3.5-5.1); Total Protein 7.4 gm/dl (6.4-8.2)
[2020-04-04] MEDS: DEXTROSE 50% 50 ML SYRINGE IV PRN (06:35)
[2020-04-04 07:04] LABS: Estimated Average Glucose 100 mg/dl; Hemoglobin A1C 5.1 % (4.5-5.6)
[2020-04-04] MEDS: ASPIRIN 81 MG ECTAB PO SCH (07:56)
[2020-04-04] MEDS: allopurinoL 300 MG TAB PO SCH (07:56)
[2020-04-04] MEDS: METOPROLOL TARTRATE 100 MG TAB PO SCH ×2 (07:56→21:08)
[2020-04-04] MEDS: gemfibroziL 600 MG TAB PO SCH (07:56)
[2020-04-04] MEDS: PANTOprazole 40 MG TAB PO SCH (07:56)
[2020-04-04] MEDS: PREGABALIN 50 MG CAP PO SCH ×2 (07:59→21:14)
[2020-04-04] MEDS: INSULIN ASPART 100 UNITS/ML 3 ML PEN SC SCH ×4 (08:33→21:08)
--- NOTE | 2020-04-04 09:34 | Gastrointestinal Consultation ---
Date of Consultation April 04, 2020 Assessment & Plan (1) Cirrhosis: Patient with history of cirrhosis, likely etiology CHANG. Presented to the ED with c/o jaundice and confusion. No jaundice noted, total bilirubin is 2.1. Will obtain abdominal ultrasound to r/o ascites. Ammonia WNL at 32.0. Confusion likely related to CHF and ARF. Please refer to supervising physician addendum for further recommendations. History of Present Illness Attending Physician: Italo Hogan History of Present Illness The patient is a 74-year-old male with past medical history that includes mechanical AVR [id number], diastolic CHF, hypertension, hyperlipidemia, type 2 diabetes mellitus, s/p left above knee amputation, CKD, COPD, GERD, and gout. The patient presented to the emergency department with complaints of jaundice, confusion, fatigue. He had a recent admission from to 03/04/2020 due to hepatic encephalopathy. He was discharged from [facility] to . He just was discharged from to home on 04/02/2020. GI consult due to cirrhosis. On exam/review today, the patient reports bilateral lower abdominal pain. Denies nausea or vomiting. Reports that he has been at [facility] and has had no missed doses of medications. Reports that "I have not had a good bowel movement in a week". Family reports 2-3 stools per day per record. Denies blood in the stool. However patient is an unreliable historian. He told me that his left [id number] amputation was performed in 1914 and that his hospital roommate was his son. He is set up with his breakfast tray reports that he is hungry and ready to eat. Last colonoscopy 11/26/[address] Wong, notes not available for review. The patient is and lives at home with his spouse. Has 2 adult children. He is retired. 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 Reports lifetime non- smoker with no significant secondhand smoke exposures. He reports no alcohol consumption. Denies use of recreational drugs including marijuana. Allergies Allergy/AdvReac Type Severity Reaction Status Date / Time enoxaparin Allergy Unknown Illness Verified 04/03/20 17:25 morphine Allergy Unknown Unknown Verified 04/03/20 17:26 adhesive AdvReac Unknown SORES WITH Verified 04/03/20 17:26 "SOME TAPE" oxycodone AdvReac Unknown HALLUCINATI Verified 04/03/20 17:26 ONS Home Medications Medication Instructions Recorded Confirmed Type allopurinol [Zyloprim] 300 mg PO QAM 01/09/18 04/03/20 History gemfibrozil [Lopid] 600 mg PO QAM 01/09/18 04/03/20 History glipizide [Glucotrol] 10 mg PO BID 01/09/18 04/03/20 History pantoprazole [Protonix] 40 mg PO QAM 01/09/18 04/03/20 History aspirin [Ecotrin Low Strength] 81 mg PO QAM #30 tab 01/14/18 04/03/20 Rx Lantus Solostar U-100 Insulin 15 unit SUBCUT DAILY@2100 11/12/18 04/03/20 History pregabalin 50 mg PO BID 03/22/19 04/03/20 History metoprolol tartrate 100 mg tablet 100 mg PO BID 05/01/19 04/03/20 History furosemide 40 mg tablet 80 mg PO BID tab 09/04/19 04/03/20 History levothyroxine 50 mcg PO QAM 02/22/20 04/03/20 History warfarin 2.5 mg PO 3XWK 02/22/20 04/03/20 History warfarin 5 mg PO 4XWK 02/22/20 04/03/20 History Patient History Medical History Afib Amputation of left lower extremity below knee Anemia Bronchitis CHF (congestive heart failure) Diabetes GERD (gastroesophageal reflux disease) Gout Hyperlipidemia Hypertension Thrombocytosis Surgical History History of appendectomy History of cholecystectomy Mechanical heart valve present 1997 S/P AKA (above knee amputation) unilateral Family History Other Family history of diabetes mellitus Social History Smoking Status: Unknown if ever smoked Second Hand Exposure: No; Hx Alcohol Use: No Hx Substance Use: No Preferred Language: Telugu Communication Ability: Effective Visual Impairment: No 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 Beliefs That Will Affect Care: None marital status: Current Living Situation: Family Other Information That Helps Us Care for You: No Feels Safe at Home: Yes Safety Concerns: Feels Safe At This Time Assistive Devices: Glasses and Wheelchair Review of Systems Review of Systems: Per HPI, patient with confusion Physical Exam Constitutional: + morbidly obese Eyes: wears corrective lenses Neck: trachea midline, no thyromegaly normal visual inspection Respiratory: normal respiratory effort; no respiratory distress and no labored breathing Cardiovascular: Rate/Rhythm: regular rate and regular rhythm Gastrointestinal (Abdomen): Inspection/Auscultation: abdomen normal to inspection and normal bowel sounds Percussion/Palpation: abdomen soft; abdomen nontender Musculoskeletal: Extremities: no cyanosis and no clubbing left above the knee amputation Psychiatric: Orientation: alert and oriented to person Results & Data ([facility]) Vital Signs (Past 12 Hours) Vital Signs Temp Pulse Pulse Resp BP Pulse Ox 04/04/20 07:17 36.4 C L 77 20 127/61 91 04/04/20 03:13 36.7 C 80 18 107/62 90 04/03/20 23:59 75 04/03/20 23:00 93 04/03/20 22:57 35.6 C L 75 18 145/54 H 93 Laboratory Results - last 24 hr 04/03/20 04/03/20 04/03/20 14:41 14:41 14:41 WBC 11.62 H RBC 2.78 L Hgb 8.7 L Hct 28.3 L MCV 101.8 H MCH 31.3 MCHC 30.7 L RDW Std Deviation 71.8 H RDW Coeff of Jose 19.9 H Plt Count 460 H MPV 12.0 H Immature Gran % (Auto) 2.6 Neut % (Auto) 70.3 Lymph % (Auto) 15.9 Mcintosh % (Auto) 10.2 Eos % (Auto) 0.9 Baso % (Auto) 0.1 Neut # (Auto) 8.16 H Lymph # (Auto) 1.85 Mcintosh # (Auto) 1.19 H Eos # (Auto) 0.11 Baso # (Auto) 0.01 Immature Gran # (Auto) 0.30 H PT 26.6 H INR 2.7 H APTT 49.8 H* PTT Ratio 1.8 Sodium 130 L Potassium 4.8 Chloride 93 L Carbon Dioxide 26 Anion Gap 11.0 BUN 113 H Creatinine 5.94 H* Est Cr Clr Drug Dosing Not Reportable Est GFR ( Amer) 9.9 Est GFR (Non-Af Amer) 8.5 BUN/Creatinine Ratio 19.0 Glucose 80 POC Glucose Estimat Average Glucose Hemoglobin A1c Lactate Calcium 8.7 Magnesium 3.2 H Iron TIBC Transferrin Ferritin Total Bilirubin 2.1 H AST 30 ALT 15 Alkaline Phosphatase 183 H Ammonia Troponin I 0.027 NT-Pro-B Natriuret Pep Total Protein 7.8 Albumin 2.8 L Globulin 5.0 H Albumin/Globulin Ratio 0.6 L Triglycerides Cholesterol LDL Cholesterol, Calc VLDL Cholesterol, Calc HDL Cholesterol Cholesterol/HDL Ratio Vitamin B12 Folate Procalcitonin Urine Color Urine Appearance Urine pH Ur Specific Witt Urine Protein Urine Glucose (UA) Urine Ketones Urine Blood Urine Nitrite Urine Bilirubin Urine Urobilinogen Ur Leukocyte Esterase Urine WBC (Auto) Urine RBC (Auto) U Hyaline Cast (Auto) U Epithel Cells (Auto) Urine Bacteria (Auto) Urine Yeast SARS-CoV-2 Ag (Rapid) 04/03/20 04/03/20 04/03/20 14:41 14:41 14:41 WBC RBC Hgb Hct MCV MCH MCHC RDW Std Deviation RDW Coeff of Jose Plt Count MPV Immature Gran % (Auto) Neut % (Auto) Lymph % (Auto) Mcintosh % (Auto) Eos % (Auto) Baso % (Auto) Neut # (Auto) Lymph # (Auto) Mcintosh # (Auto) Eos # (Auto) Baso # (Auto) Immature Gran # (Auto) PT INR APTT PTT Ratio Sodium Potassium Chloride Carbon Dioxide Anion Gap BUN Creatinine Est Cr Clr Drug Dosing Est GFR ( Amer) Est GFR (Non-Af Amer) BUN/Creatinine Ratio Glucose POC Glucose Estimat Average Glucose Hemoglobin A1c Lactate 1.7 Calcium Magnesium Iron TIBC Transferrin Ferritin Total Bilirubin AST ALT Alkaline Phosphatase Ammonia 32.0 Troponin I NT-Pro-B Natriuret Pep Total Protein Albumin Globulin Albumin/Globulin Ratio Triglycerides Cholesterol LDL Cholesterol, Calc VLDL Cholesterol, Calc HDL Cholesterol Cholesterol/HDL Ratio Vitamin B12 Folate Procalcitonin 0.20 Urine Color Urine Appearance Urine pH Ur Specific Witt Urine Protein Urine Glucose (UA) Urine Ketones Urine Blood Urine Nitrite Urine Bilirubin Urine Urobilinogen Ur Leukocyte Esterase Urine WBC (Auto) Urine RBC (Auto) U Hyaline Cast (Auto) U Epithel Cells (Auto) Urine Bacteria (Auto) Urine Yeast SARS-CoV-2 Ag (Rapid) 04/03/20 04/03/20 04/03/20 14:41 14:41 17:42 WBC RBC Hgb Hct MCV MCH MCHC RDW Std Deviation RDW Coeff of Jose Plt Count MPV Immature Gran % (Auto) Neut % (Auto) Lymph % (Auto) Mcintosh % (Auto) Eos % (Auto) Baso % (Auto) Neut # (Auto) Lymph # (Auto) Mcintosh # (Auto) Eos # (Auto) Baso # (Auto) Immature Gran # (Auto) PT INR APTT PTT Ratio Sodium Potassium Chloride Carbon Dioxide Anion Gap BUN Creatinine Est Cr Clr Drug Dosing Est GFR ( Amer) Est GFR (Non-Af Amer) BUN/Creatinine Ratio Glucose POC Glucose Estimat Average Glucose Hemoglobin A1c Lactate Calcium Magnesium Iron 102 TIBC 269 Transferrin 226 Ferritin 121.9 Total Bilirubin AST ALT Alkaline Phosphatase Ammonia Troponin I NT-Pro-B Natriuret Pep 34055 H Total Protein Albumin Globulin Albumin/Globulin Ratio Triglycerides Cholesterol LDL Cholesterol, Calc VLDL Cholesterol, Calc HDL Cholesterol Cholesterol/HDL Ratio Vitamin B12 Folate Procalcitonin Urine Color Dark Yellow Urine Appearance Cloudy A Urine pH 5.0 Ur Specific Witt 1.018 Urine Protein Trace H Urine Glucose (UA) Negative Urine Ketones Trace H Urine Blood 1+ H Urine Nitrite Negative Urine Bilirubin Negative Urine Urobilinogen Negative Ur Leukocyte Esterase Trace H Urine WBC (Auto) 1-5 Urine RBC (Auto) 5-10 H U Hyaline Cast (Auto) 10-30 H U Epithel Cells (Auto) 10-20 H Urine Bacteria (Auto) Negative Urine Yeast Not Reportable SARS-CoV-2 Ag (Rapid) 04/03/20 04/03/20 04/03/20 20:41 22:50 22:50 WBC RBC Hgb Hct MCV MCH MCHC RDW Std Deviation RDW Coeff of Jose Plt Count MPV Immature Gran % (Auto) Neut % (Auto) Lymph % (Auto) Mcintosh % (Auto) Eos % (Auto) Baso % (Auto) Neut # (Auto) Lymph # (Auto) Mcintosh # (Auto) Eos # (Auto) Baso # (Auto) Immature Gran # (Auto) PT INR APTT PTT Ratio Sodium 132 L Potassium 4.8 Chloride 93 L Carbon Dioxide 23 Anion Gap 16.0 H BUN 118 H Creatinine 5.92 H* Est Cr Clr Drug Dosing 15.3 Est GFR ( Amer) 9.9 Est GFR (Non-Af Amer) 8.5 BUN/Creatinine Ratio 20.0 Glucose 54 L POC Glucose 115 H Estimat Average Glucose Hemoglobin A1c Lactate Calcium 8.6 Magnesium Iron TIBC Transferrin Ferritin Total Bilirubin AST ALT Alkaline Phosphatase Ammonia Troponin I NT-Pro-B Natriuret Pep Total Protein Albumin Globulin Albumin/Globulin Ratio Triglycerides Cholesterol LDL Cholesterol, Calc VLDL Cholesterol, Calc HDL Cholesterol Cholesterol/HDL Ratio Vitamin B12 1030 H Folate 8.50 Procalcitonin Urine Color Urine Appearance Urine pH Ur Specific Witt Urine Protein Urine Glucose (UA) Urine Ketones Urine Blood Urine Nitrite Urine Bilirubin Urine Urobilinogen Ur Leukocyte Esterase Urine WBC (Auto) Urine RBC (Auto) U Hyaline Cast (Auto) U Epithel Cells (Auto) Urine Bacteria (Auto) Urine Yeast SARS-CoV-2 Ag (Rapid) 04/03/20 04/04/20 04/04/20 Unknown 05:17 05:17 WBC 13.33 H RBC 2.70 L Hgb 8.3 L Hct 27.5 L MCV 101.9 H MCH 30.7 MCHC 30.2 L RDW Std Deviation 71.9 H RDW Coeff of Jose 20.0 H Plt Count 508 H MPV 12.1 H Immature Gran % (Auto) Neut % (Auto) Lymph % (Auto) Mcintosh % (Auto) Eos % (Auto) Baso % (Auto) Neut # (Auto) Lymph # (Auto) Mcintosh # (Auto) Eos # (Auto) Baso # (Auto) Immature Gran # (Auto) PT 26.6 H INR 2.7 H APTT PTT Ratio Sodium Potassium Chloride Carbon Dioxide Anion Gap BUN Creatinine Est Cr Clr Drug Dosing Est GFR ( Amer) Est GFR (Non-Af Amer) BUN/Creatinine Ratio Glucose POC Glucose Estimat Average Glucose Hemoglobin A1c Lactate Calcium Magnesium Iron TIBC Transferrin Ferritin Total Bilirubin AST ALT Alkaline Phosphatase Ammonia Troponin I NT-Pro-B Natriuret Pep Total Protein Albumin Globulin Albumin/Globulin Ratio Triglycerides Cholesterol LDL Cholesterol, Calc VLDL Cholesterol, Calc HDL Cholesterol Cholesterol/HDL Ratio Vitamin B12 Folate Procalcitonin Urine Color Urine Appearance Urine pH Ur Specific Witt Urine Protein Urine Glucose (UA) Urine Ketones Urine Blood Urine Nitrite Urine Bilirubin Urine Urobilinogen Ur Leukocyte Esterase Urine WBC (Auto) Urine RBC (Auto) U Hyaline Cast (Auto) U Epithel Cells (Auto) Urine Bacteria (Auto) Urine Yeast SARS-CoV-2 Ag (Rapid) Negative 04/04/20 04/04/20 04/04/20 05:17 05:17 06:50 WBC RBC Hgb Hct MCV MCH MCHC RDW Std Deviation RDW Coeff of Jose Plt Count MPV Immature Gran % (Auto) Neut % (Auto) Lymph % (Auto) Mcintosh % (Auto) Eos % (Auto) Baso % (Auto) Neut # (Auto) Lymph # (Auto) Mcintosh # (Auto) Eos # (Auto) Baso # (Auto) Immature Gran # (Auto) PT INR APTT PTT Ratio Sodium 131 L Potassium 4.7 Chloride 95 L Carbon Dioxide 24 Anion Gap 12.0 H BUN 117 H Creatinine 5.96 H* Est Cr Clr Drug Dosing 15.2 Est GFR ( Amer) 9.8 Est GFR (Non-Af Amer) 8.5 BUN/Creatinine Ratio 19.8 Glucose 41 L* POC Glucose 148 H Estimat Average Glucose 100 Hemoglobin A1c 5.1 Lactate Calcium 8.5 Magnesium Iron TIBC Transferrin Ferritin Total Bilirubin 2.3 H AST 27 ALT 14 Alkaline Phosphatase 162 H Ammonia Troponin I NT-Pro-B Natriuret Pep Total Protein 7.4 Albumin 2.8 L Globulin 4.6 H Albumin/Globulin Ratio 0.6 L Triglycerides 128 Cholesterol 84 LDL Cholesterol, Calc 38 VLDL Cholesterol, Calc 26 HDL Cholesterol 20 Cholesterol/HDL Ratio 4 Vitamin B12 Folate Procalcitonin Urine Color Urine Appearance Urine pH Ur Specific Witt Urine Protein Urine Glucose (UA) Urine Ketones Urine Blood Urine Nitrite Urine Bilirubin Urine Urobilinogen Ur Leukocyte Esterase Urine WBC (Auto) Urine RBC (Auto) U Hyaline Cast (Auto) U Epithel Cells (Auto) Urine Bacteria (Auto) Urine Yeast SARS-CoV-2 Ag (Rapid) 04/04/20 07:40 WBC RBC Hgb Hct MCV MCH MCHC RDW Std Deviation RDW Coeff of Jose Plt Count MPV Immature Gran % (Auto) Neut % (Auto) Lymph % (Auto) Mcintosh % (Auto) Eos % (Auto) Baso % (Auto) Neut # (Auto) Lymph # (Auto) Mcintosh # (Auto) Eos # (Auto) Baso # (Auto) Immature Gran # (Auto) PT INR APTT PTT Ratio Sodium Potassium Chloride Carbon Dioxide Anion Gap BUN Creatinine Est Cr Clr Drug Dosing Est GFR ( Amer) Est GFR (Non-Af Amer) BUN/Creatinine Ratio Glucose POC Glucose 148 H Estimat Average Glucose Hemoglobin A1c Lactate Calcium Magnesium Iron TIBC Transferrin Ferritin Total Bilirubin AST ALT Alkaline Phosphatase Ammonia Troponin I NT-Pro-B Natriuret Pep Total Protein Albumin Globulin Albumin/Globulin Ratio Triglycerides Cholesterol LDL Cholesterol, Calc VLDL Cholesterol, Calc HDL Cholesterol Cholesterol/HDL Ratio Vitamin B12 Folate Procalcitonin Urine Color Urine Appearance Urine pH Ur Specific Witt Urine Protein Urine Glucose (UA) Urine Ketones Urine Blood Urine Nitrite Urine Bilirubin Urine Urobilinogen Ur Leukocyte Esterase Urine WBC (Auto) Urine RBC (Auto) U Hyaline Cast (Auto) U Epithel Cells (Auto) Urine Bacteria (Auto) Urine Yeast SARS-CoV-2 Ag (Rapid) (1) Cirrhosis Hepatic cirrhosis type: unspecified hepatic cirrhosis Ascites presence: with ascites Qualified Code(s): K74.60 - Unspecified cirrhosis of liver; R18.8 - Other ascites
--- NOTE | 2020-04-04 11:49 | Consultation Report ---
DATE OF CONSULTATION: 04/04/2020 Consult note with Nalini Astudillo: I reviewed the patient's history and physical exam and reviewed the lab and imaging. The patient has a baseline history of cirrhosis, probably on the basis of CHANG, who presented with confusion. He is not jaundiced, but has some mild liver test abnormalities. His main problems are what appear to be congestive heart failure and renal failure. The renal failure and congestive heart failure may be contributing to his altered mental status. Of note is that his white count and platelet counts are elevated, and this could indicate a form of infection. Typically in cirrhosis, the platelet count is low. His blood cultures have been drawn and are pending, but he could have spontaneous bacterial peritonitis and an ultrasound to assess this has been ordered. Urine culture may also be prudent to obtain. Currently, there is no need for intervention related to his liver. His ammonia level is normal. If he does have signs of ascites, it may be important to obtain some ascitic fluid for evaluation and culture. We will follow the patient during his hospitalization.
--- NOTE | 2020-04-04 12:01 | Nephrology Consultation ---
Date of Consultation April 04, 2020 Assessment & Plan (1) Acute renal failure (ARF): * LINO suggestive of type I HRS * Need to be vigilant for possible infection related to R great toe wound * Will check FeNa * Creatinine has stabilized following 500 cc IV fluid bolus * No acute indication for HD at this time. Electrolyte balance and volume status remain acceptable * Continue 25 g Albumin IV q8 hours * Will provide a trial of midodrine and octreotide * Await blood and urine culture results * Keep wise catheter in place to monitor I&O's * Will order renal US * Case discussed w/ hospitalist and critical care this morning. 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 Hospitalist group will hold warfarin today to allow INR to drift down to ~ 2.0 in anticipation of patient requiring vascular procedure (2) Chronic kidney disease: * Baseline Cr 2.0 (3) Urinary tract infection: * Treated for Enterococcus Faecalis UTI 02/22 * Await follow up urine culture results (4) Wound of foot: * R great toe nail is partially torn off and nail bed is bleeding * Consider imaging to rule out osteomyelitis/foreign body (5) Cirrhosis: * NH3 within normal limits at 32 History of Present Illness Reason for Consultation: LINO/CKD Attending Physician: Italo Hogan History of Present Illness Mr. Merchant is a 74 year old white male who is seen at the request of Dr. Hogan for evaluation of LINO/CKD. Medical records in the EMR were reviewed and are summarized as follows: Mr. Merchant has CKD w/ baseline Cr 2.0. There is no prior Nephrology evaluation recorded. His medical history is significant for obesity, cirrhosis due to CHANG, diastolic CHF, atrial fibrillation, mechanical heart valve requiring chronic warfarin therapy, PVD s/p L AKA, COPD and AODM. Mr. Merchant was brought to the hospital by his family yesterday due to progressive weakness. ED evaluation revealed LINO w/ Cr 5.8, WBC 13K, Hgb 8.3, INR 2.7, urinalysis w/ spgr 1.018, urine microscopy w/ hyaline casts, NH3 32, albumin 2.8. Wise catheter was inserted, IV hydration and IV albumin was provided in ED. Patient was admitted to hospitalist service for ongoing medical management Allergies Allergy/AdvReac Type Severity Reaction Status Date / Time enoxaparin Allergy Unknown Illness Verified 04/03/20 17:25 morphine Allergy Unknown Unknown Verified 04/03/20 17:26 adhesive AdvReac Unknown SORES WITH Verified 04/03/20 17:26 "SOME TAPE" oxycodone AdvReac Unknown HALLUCINATI Verified 04/03/20 17:26 ONS Home Medications Medication Instructions Recorded Confirmed Type allopurinol [Zyloprim] 300 mg PO QAM 01/09/18 04/03/20 History gemfibrozil [Lopid] 600 mg PO QAM 01/09/18 04/03/20 History glipizide [Glucotrol] 10 mg PO BID 01/09/18 04/03/20 History pantoprazole [Protonix] 40 mg PO QAM 01/09/18 04/03/20 History aspirin [Ecotrin Low Strength] 81 mg PO QAM #30 tab 01/14/18 04/03/20 Rx Lantus Solostar U-100 Insulin 15 unit SUBCUT DAILY@2100 11/12/18 04/03/20 History pregabalin 50 mg PO BID 03/22/19 04/03/20 History metoprolol tartrate 100 mg tablet 100 mg PO BID 05/01/19 04/03/20 History furosemide 40 mg tablet 80 mg PO BID tab 09/04/19 04/03/20 History levothyroxine 50 mcg PO QAM 02/22/20 04/03/20 History warfarin 2.5 mg PO 3XWK 02/22/20 04/03/20 History warfarin 5 mg PO 4XWK 02/22/20 04/03/20 History Patient History Medical History Afib Amputation of left lower extremity below knee Anemia Bronchitis CHF (congestive heart failure) Diabetes GERD (gastroesophageal reflux disease) Gout Hyperlipidemia Hypertension Thrombocytosis Surgical History History of appendectomy History of cholecystectomy Mechanical heart valve present 1997 S/P AKA (above knee amputation) unilateral Family History Other Family history of diabetes mellitus Social History Smoking Status: Unknown if ever smoked Second Hand Exposure: No; Hx Alcohol Use: No Hx Substance Use: No Preferred Language: Lithuanian Communication Ability: Effective Visual Impairment: No Limitations Traveling Secretary Required: No Beliefs That Will Affect Care: None marital status: Current Living Situation: Family Other Information That Helps Us Care for You: No Feels Safe at Home: Yes Safety Concerns: Feels Safe At This Time Assistive Devices: Glasses and Wheelchair Review of Systems Constitutional: no fever Eyes: no problem reported Ear, Nose, Mouth, Throat: no problem reported Respiratory: no dyspnea Cardiovascular: + edema; no chest pain Gastrointestinal: no abdominal pain, no vomiting and no diarrhea/loose stools Neurologic: no dizziness Physical Exam Constitutional: + obese (chronically ill appearing) Eyes: PERRL, conjunctivae normal, anicteric sclerae ENMT: external ear and nose normal, oropharynx normal Neck: trachea midline, no thyromegaly Respiratory: normal respiratory effort, lungs clear to auscultation Cardiovascular: Rate/Rhythm: regular rate and regular rhythm Extremities: + edema (RLE 1+ pretibial pitting edema) Gastrointestinal (Abdomen): normal bowel sounds, soft, nontender, no hepatosplenomegaly Musculoskeletal: Extremities: no cyanosis avulsed R great toe nail. Bloody drainage from R great toe nail site Results & Data ([facility]) Vital Signs (Past 12 Hours) Vital Signs Temp Pulse Pulse Resp BP Pulse Ox 04/04/20 07:17 36.4 C L 77 20 127/61 91 04/04/20 03:13 36.7 C 80 18 107/62 90 04/03/20 23:59 75 Laboratory Tests 04/04/20 04/04/20 05:17 05:17 WBC 13.33 H Hgb 8.3 L Hct 27.5 L Plt Count 508 H Sodium 131 L Potassium 4.7 Chloride 95 L Carbon Dioxide 24 BUN 117 H Creatinine 5.96 H* Glucose 41 L* PG Care Time/CCT Total # of Minutes Spent Total Time Spent with Patient: Total time spent is greater than 50% in coordination of care (as documented) at patient's floor/unit and/or counseling patient: Coding Level of Care Code 11293 Inpt Consult Level 5 Diagnoses Acute renal failure (ARF) N17.9 Acute renal failure type: unspecified Chronic kidney disease N18.9 Urinary tract infection N30.01 Hematuria presence: with hematuria Urinary tract infection type: acute cystitis Wound of foot S91.309A Cirrhosis K74.60; R18.8 Ascites presence: with ascites Hepatic cirrhosis type: unspecified hepatic cirrhosis (1) Urinary tract infection Hematuria presence: with hematuria Urinary tract infection type: acute cystitis Qualified Code(s): N30.01 - Acute cystitis with hematuria (2) Acute renal failure (ARF) Acute renal failure type: unspecified Qualified Code(s): N17.9 - Acute kidney failure, unspecified (3) Cirrhosis Ascites presence: with ascites Hepatic cirrhosis type: unspecified hepatic cirrhosis Qualified Code(s): K74.60 - Unspecified cirrhosis of liver; R18.8 - Other ascites
[2020-04-04] MEDS: OCTREOTIDE ACETATE 100 MCG/ML VIAL SQ SCH ×2 (12:42→21:18)
[2020-04-04] MEDS: MIDODRINE HCL 2.5 MG TAB PO SCH ×2 (12:42→16:59)
[2020-04-04] MEDS: ALBUMIN 25% 12.5 GM/50 ML VIAL IV SCH ×3 (12:43→21:14)
--- NOTE | 2020-04-04 13:53 | Ultrasound Report ---
ULTRASOUND ASCITES CHECK CLINICAL HISTORY: Cirrhosis. Ascites. COMPARISON STUDY: Abdominal CT dated 02/28/2020. FINDINGS: Real-time grayscale sonography of all 4 quadrants of the abdomen is performed to assess for abdominal ascites. There is trace abdominopelvic ascites. The spleen is enlarged measuring 17.2 cm i n length. The liver is cirrhotic in morphology and heterogeneous in echotexture. IMPRESSION: 1. There is trace abdominopelvic ascites, insufficient for paracentesis. 2. Cirrhotic liver morphology and splenomegaly. Electronically signed by: Ho Denny M.D. 04/04/2020 1:52 PM
--- NOTE | 2020-04-04 13:56 | Ultrasound Report ---
ULTRASOUND KIDNEYS AND BLADDER CLINICAL HISTORY: Acute renal insufficiency. COMPARISON STUDY: Abdominal CT dated 02/28/2020 TECHNIQUE: Real-time, grayscale, and color flow sonography of the kidneys and bladder is performed. I mages are reviewed in the transverse and longitudinal planes. FINDINGS: Kidneys: The kidneys are atrophic. Echotexture is normal. The right kidney measures 10.3 cm inlet and the left kidney measures 12.1 cm in length. There is no hydronephrosis. No shadowing renal calculi a re identified. A 3.2 cm cyst is noted in the left upper pole. There is no sonographic evidence of con tour deforming renal mass lesion. No perinephric fluid is identified. Bladder: The bladder is bladder is decompressed around a Fox catheter and cannot be assessed. There is trace pelvic ascites. Upper abdomen: Survey images of the liver show cirrhotic morphology and heterogeneous echotexture. Th ere is trace perihepatic ascites. The spleen is enlarged. IMPRESSION: 1. The kidneys are atrophic and without hydronephrosis. 2. The bladder was decompressed and could not be assessed. ACT 112: Negative or not required by law. Electronically signed by: Ho Denny M.D. 04/04/2020 1:55 PM
--- NOTE | 2020-04-04 14:31 | Billing Data ---
Date of Service April 04, 2020 Coding Level of Care Code 91266 Initial Inpt Care Lvl 3
[2020-04-04] MEDS ORDERED: WARFARIN SOD 2.5 MG TAB PO SCH (16:00)
[2020-04-04] MEDS: INSULIN GLARGINE SOLOSTAR 100 UNITS/ML 3 ML PEN SQ SCH (21:07)
[2020-04-04] MEDS: levoFLOXacin/D5W 250 MG/50 ML BAG IV SCH (21:07)
--- NOTE | 2020-04-04 22:52 | Magnetic Resonance Report ---
MRI OF THE RIGHT FOREFOOT WITHOUT IV CONTRAST CLINICAL HISTORY: Right foot wound. Clinical concern for osteomyelitis. COMPARISON STUDY: No priors. TECHNIQUE: MRI of the right forefoot is performed utilizing various T1 and T2-weighted sequences in t he axial, sagittal, and coronal planes. IV contrast was not administered for this examination. Note t hat interpretation is suboptimal without plain film correlate. FINDINGS: There is no marrow signal abnormality identified typical for osteomyelitis. No focal marrow edema is identified throughout the visualized bony structures. Mild degenerative change is noted in the midfoot and at the first metatarsophalangeal joint. There is diffuse superficial and deep soft ti ssue edema identified throughout the forefoot. No organized fluid collection is seen to suggest absce ss. The visualized flexor and extensor tendons are grossly intact. Mild edema is noted in the regiona l musculature. IMPRESSION: 1. There is no MRI evidence of osteomyelitis as clinically queried. 2. Diffuse soft tissue edema suggests cellulitis. Clinical correlation will be required. 3. Findings suggest myositis of the regional musculature. Electronically signed by: Ho Denny M.D. 04/04/2020 10:51 PM
--- NOTE | 2020-04-04 22:57 | Hospitalist Progress Note ---
Date of Service April 04, 2020 Assessment & Plan (1) Acute renal failure (ARF): - Admit to [facility] tele - Cr significantly elevated compared to 1 month ago. Cr. 5.94 up from 2.01 - Volume overloaded in RLE as well as in the left thigh - Will hold lasix for now, give NSS 500mL bolus with adequate EF, and albumin IV for fluid redistribution. - Nephro consulted for possible needs for dialysis: plan is to hold warfarin and to get HD done if renal function does not imrpove. - Follow am Bmp - Pt discharged home from [facility] yesterday - Hx of UTI with enterococcus, previous admission was pansensitive - can cover with levaquin after obtaining ua and culture. (2) Acute uremia: - Urine not yet obtained, elevated BUN of 113 compared to 54 at time of last admission - Nephro consult - Follow am bmp - Possible that altered mental status is due to uremic encephalopathy vs hepatic encephalopathy presently. (3) Acute diastolic (congestive) heart failure: - Appears volume overloaded, however with ARF will hold lasix and give small amount of fluid as above - Preserved EF of 50-55% from 02/23/20 - Continue metoprolol tartrate 100 mg BID (4) Hyperlipidemia: - Cont Lopid 600 mg QAM (5) Mechanical heart valve present: - Inserted in 1988, prosthetic aortic valve - Risk for endocarditis with valve in place - Cover with levaquin after obtaining urine as above, wise cath placement - Afebrile, no leukocytosis. 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 INR is 2.7, follow with am labs (8) Cirrhosis: - Thought to be CHANG without prior etoh use - Hep C neg, Hep BsAg negative - Hx of hepatic encephalopathy-patient reports feeling dopey recently, will hold lactulose for now with likely uremic encephalopathy vs hepatic encephalopathy currently, once resume then titrate for 2-3 BMs daily - ammonia 32 on admission - Has been previously requested to have GI follow-up, as patient just got out of [facility], he had not yet been able to follow-up with GI (9) Hyponatremia: - 130 on admission - Fluid restrict with diet, will give NSS x 500mL once (10) Diabetes: - Hold glipizide -ISS with Accu-Cheks ACHS -Continue Lantus 15 units hs -Check A1c with a.m. labs , 6.1 on 01/12/20 (11) Gout: -Continue allopurinol (12) GERD (gastroesophageal reflux disease): -Continue Protonix daily (13) Morbid obesity with BMI of 40.0-44.9, adult: -History of such, diet and exercise encouraged Called and discussed the pts care with over the phone, all her questions and concerns were addressed. DVT ppx: - teds, scds, holding Coumadin as above CODE: DNR/DNI Dispo: From home, likely to remain in the hospital x 1-2 days (14) Cellulitis of right toe: will obtain MRI to rule out osteomyelitis. will continue levaquin. appreciate wound care input Admission and Anticipated Discharge Date Admission Date: April 03, 2020 Subjective Patient is a 74 male who reports no new symptoms. He was difficult to arouse, but answers questions. Review of Systems Review of Systems: All systems reviewed & are unremarkable except as noted in HPI & below Physical Exam Physical Exam: General: difficult to arouse, alert, no apparent distress, + morbidly obese Head: Normocephalic, atraumatic ENT: PERRL, EOMI, no pharyngeal exudate, mucous membranes dry Chest: Clear to auscultation, on room air, no adventitious breath sounds Back: Patient with multiple areas of ecchymosis of the right shoulder blade region and right flank region Cardiac: Regular rate and rhythm, + mechanical valve click, no JVD, normal peripheral pulses, good capillary refill Abdominal: NABS x 4 quadrants, soft, nondistended, nontender to palpation, no rebound or guarding Extremities: Left AKA, 2 device pitting edema in LLE, no erythema, calfs nontender to palpation, right toe is dressed. Psych: Depressed mood and flat affect Neuro: strength intact bilaterally and rated 3/5 ble, does not ambulate at baseline, no gross motor deficits, speech is slowed but clear, no peripheral sensory deficits Skin: Erythema over sacral decub region, no ulceration or skin breakdown. Areas of ecchymosis over R shoulder blade region and upper extremities Results & Data Results & Data ([facility]) Vital Signs (Past 12 Hours) Vital Signs Temp Pulse Pulse Resp BP Pulse Ox 04/04/20 19:34 36.6 C 75 19 107/73 95 04/04/20 16:00 78 04/04/20 15:26 36.6 C 76 16 96/65 L 94 04/04/20 12:28 36.4 C L 80 18 103/56 L 96 PG Care Time/CCT Total # of Minutes Spent Total Time Spent with Patient: Total time spent is greater than 50% in coordination of care (as documented) at patient's floor/unit and/or counseling patient: Coding Level of Care Code 55934 Subseq Hosp Care Lvl 3 Diagnoses Acute renal failure (ARF) N17.9 Acute renal failure type: unspecified Acute uremia N19 Acute diastolic (congestive) heart failure I50.31 Hyperlipidemia E78.5 Hyperlipidemia type: unspecified Mechanical heart valve present Z95.2 Hypertension I10 Hypertension type: essential hypertension Anemia D64.9 Anemia type: unspecified type Cirrhosis K74.60; R18.8 Ascites presence: with ascites Hepatic cirrhosis type: unspecified hepatic cirrhosis Hyponatremia E87.1 Diabetes E11.42; Z79.4 Diabetes mellitus complication detail: with polyneuropathy Diabetes mellitus complication status: with neurologic complications Diabetes mellitus medical terminologist insulin use: with snf use Diabetes mellitus type: type 2 Gout M10.9 Chronicity: unspecified Gout etiology: unspecified cause Gout site: unspecified site GERD (gastroesophageal reflux disease) K21.9 Esophagitis presence: esophagitis presence not specified Morbid obesity with BMI of 40.0-44.9, adult E66.01; Z68.41 Cellulitis of right toe L03.031 (1) Diabetes Diabetes mellitus complication detail: with polyneuropathy Diabetes mellitus complication status: with neurologic complications Diabetes mellitus medical terminologist insulin use: with medical terminologist use Diabetes mellitus type: type 2 Qualified Code(s): E11.42 - Type 2 diabetes mellitus with diabetic polyneuropathy; 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 (2) Gout Chronicity: unspecified Gout etiology: unspecified cause Gout site: unspecified site Qualified Code(s): M10.9 - Gout, unspecified (3) Acute renal failure (ARF) Acute renal failure type: unspecified Qualified Code(s): N17.9 - Acute kidney failure, unspecified (4) Anemia Anemia type: unspecified type Qualified Code(s): D64.9 - Anemia, unspecified (5) Hyperlipidemia Hyperlipidemia type: unspecified Qualified Code(s): E78.5 - Hyperlipidemia, unspecified (6) Cirrhosis Ascites presence: with ascites Hepatic cirrhosis type: unspecified hepatic cirrhosis Qualified Code(s): K74.60 - Unspecified cirrhosis of liver; R18.8 - Other ascites (7) GERD (gastroesophageal reflux disease) Esophagitis presence: esophagitis presence not specified Qualified Code(s): K21.9 - Gastro-esophageal reflux disease without esophagitis (8) Hypertension Hypertension type: essential hypertension Qualified Code(s): I10 - Essential (primary) hypertension
[2020-04-05] MEDS: ALBUMIN 25% 12.5 GM/50 ML VIAL IV SCH ×4 (00:27→17:02)
[2020-04-05] MEDS: DEXTROSE 50% 50 ML SYRINGE IV PRN ×2 (03:57→17:00)
[2020-04-05] MEDS: OCTREOTIDE ACETATE 100 MCG/ML VIAL SQ SCH ×2 (05:35→17:02)
[2020-04-05] MEDS: LEVOTHYROXINE SODIUM 50 MCG TABLET PO SCH (05:36)
[2020-04-05] MEDS: ACETAMINOPHEN 325 MG TAB PO PRN (06:27)
[2020-04-05] MEDS: METOPROLOL TARTRATE 100 MG TAB PO SCH ×2 (07:27→22:00)
[2020-04-05] MEDS: ASPIRIN 81 MG ECTAB PO SCH (07:27)
[2020-04-05] MEDS: MIDODRINE HCL 2.5 MG TAB PO SCH ×2 (07:27→12:21)
[2020-04-05] MEDS: PANTOprazole 40 MG TAB PO SCH (07:29)
[2020-04-05] MEDS: gemfibroziL 600 MG TAB PO SCH (07:29)
[2020-04-05] MEDS: allopurinoL 300 MG TAB PO SCH (07:29)
[2020-04-05] MEDS: PREGABALIN 50 MG CAP PO SCH ×2 (07:32→22:00)
[2020-04-05 07:33] LABS: Hematocrit (blood only) 26.4 % (42-52); Mean Corpuscular Hemoglobin 31.1 pg (25-34); Mean Corpuscular Hgb Conc 30.3 g/dL (32-36); Mean Corpuscular Volume 102.7 fL (80-100); Mean Platelet Volume 12.2 fL (7.4-10.4); Nucleated RBC # (auto) 0.06 K/uL (0-0); Nucleated RBC % (auto) 0.5 %; Platelet Count 471 K/uL (130-400); RDW Coefficient of Variation 20.4 % (11.5-14.5); RDW Standard Deviation 74.2 fL (36.4-46.3); Red Blood Count 2.57 M/uL (4.7-6.1); White Blood Count 12.43 K/uL (4.8-10.8)
[2020-04-05 07:53] LABS: INR 3.8 (0.9-1.1); Prothrombin Time 37.7 Seconds (9.0-12.0)
[2020-04-05 08:11] LABS: Albumin Globulin Ratio 0.7 (0.9-2); Albumin Level 3.1 gm/dl (3.4-5.0); BUN Creatinine Ratio 18.2 (10-20); Bilirubin,Total 2.4 mg/dl (0.2-1); Calcium 8.5 mg/dl (8.5-10.1); Creatinine Clr Calc Pharmacy 13.5 ml/min; Est GFR (African American) 8.4; Est GFR (Non-African American) 7.3; Globulin 4.3 gm/dl (2.5-4.0); Potassium 5.1 mmol/L (3.5-5.1); Total Protein 7.4 gm/dl (6.4-8.2)
[2020-04-05] MEDS ORDERED: EPOETIN ALFA 10,000 UNITS/ML VIAL IV ONE (08:48)
[2020-04-05] MEDS ORDERED: SODIUM CHLORIDE 0.9% 1000ML 1,000 ML IV PRN (08:48)
[2020-04-05] MEDS: INSULIN ASPART 100 UNITS/ML 3 ML PEN SC SCH ×4 (08:55→21:48)
[2020-04-05 10:19] LABS: Hepatitis B Surface Ab Quant 4.06 mIU/mL (>or=10mIU/mL Immune); Hepatitis B Surface Antibody Non-Immune
[2020-04-05 10:30] LABS: Hepatitis B Surface Antigen Neg (Neg)
--- NOTE | 2020-04-05 10:51 | Nephrology Progress Note ---
Date of Service April 05, 2020 Assessment & Plan (1) Acute renal failure (ARF): * LINO - ddx includes type I HRS, ATN related to RLE cellulitis/myositis * FeNa 0.2% * Blood and urine cultures are NGTD * Renal US 04/04/20: R 10.3cm, L 12.1cm. No hydronephrosis, calculi or mass. Bladder is decompressed by wise catheter * Progressive renal dysfunction and azotemia despite IV hydration, albumin, midodrine and octreotide administration * Will stop above measures and initiate HD. Indications/benefits/alternatives to HD discussed with both patient and his (telephone) this morning. They are agreeable to temporary dialysis catheter insertion and initiation of HD * Critical care consulted for temporary dialysis catheter insertion * HD orders placed in EMR and HD RN notified (2) Chronic kidney disease: * Baseline Cr 2.0 (3) Urinary tract infection: * Treated for Enterococcus Faecalis UTI 02/22 * Follow up urine culture results are negative (4) Wound of foot: * Partial avulsion of R great toe nail * 04/04/20 MRI R foot reveals cellulitis/myositis (5) Cirrhosis: * NH3 within normal limits at 32 Admission and Anticipated Discharge Date Admission Date: April 03, 2020 Subjective Mr. Merchant was seen & examined in his hospital room this morning. He was alert and oriented to self, place and month. He denied fever, dyspnea or nausea. Noncontrast MRI of RLE yesterday was negative for osteomyelitis but did reveal cellulitis/myositis Review of Systems Constitutional: no fever Eyes: no problem reported Ear, Nose, Mouth, Throat: no problem reported Respiratory: no dyspnea Cardiovascular: + edema; no chest pain Gastrointestinal: no abdominal pain, no vomiting and no diarrhea/loose stools Neurologic: no dizziness Physical Exam Constitutional: + obese (chronically ill appearing) Eyes: PERRL, conjunctivae normal, anicteric sclerae ENMT: external ear and nose normal, oropharynx normal Neck: trachea midline, no thyromegaly Respiratory: normal respiratory effort, lungs clear to auscultation Cardiovascular: Rate/Rhythm: regular rate and regular rhythm Extremities: + edema (RLE 1+ pretibial pitting edema) Gastrointestinal (Abdomen): normal bowel sounds, soft, nontender, no hep atosplenomegaly Musculoskeletal: Extremities: no cyanosis (R foot bandaged) Results & Data ([facility]) Vital Signs (Past 12 Hours) Vital Signs Temp Pulse Pulse Resp BP Pulse Ox 04/05/20 07:43 36.5 C 76 18 119/64 93 04/05/20 02:36 36.8 C 78 20 101/51 L 92 04/04/20 23:59 74 04/04/20 22:56 36.5 C 73 19 101/64 95 Laboratory Tests 04/05/20 04/05/20 06:46 06:46 WBC 12.43 H Hgb 8.0 L Hct 26.4 L Plt Count 471 H Sodium 128 L Potassium 5.1 Chloride 92 L Carbon Dioxide 23 BUN 122 H Creatinine 6.76 H* D Glucose 64 L PG Care Time/CCT Total # of Minutes Spent Total Time Spent with Patient: Total time spent is greater than 50% in coordination of care (as documented) at patient's floor/unit and/or counseling patient: Coding Level of Care Code 94749 Subseq Hosp Care Lvl 3 Diagnoses Acute renal failure (ARF) N17.9 Acute renal failure type: unspecified Chronic kidney disease N18.9 Urinary tract infection N30.01 Hematuria presence: with hematuria Urinary tract infection type: acute cystitis Wound of foot S91.309A Cirrhosis K74.60; R18.8 Hepatic cirrhosis type: unspecified hepatic cirrhosis Ascites presence: with ascites (1) Acute renal failure (ARF) Acute renal failure type: unspecified Qualified Code(s): N17.9 - Acute kidney failure, unspecified (2) Urinary tract infection Hematuria presence: with hematuria Urinary tract infection type: acute cystitis Qualified Code(s): N30.01 - Acute cystitis with hematuria (3) Cirrhosis Hepatic cirrhosis type: unspecified hepatic cirrhosis Ascites presence: with ascites Qualified Code(s): K74.60 - Unspecified cirrhosis of liver; R18.8 - Other ascites
[2020-04-05] MEDS ORDERED: PIPERACILL/TAZOBAC CONSULT ACTIVE PRN (12:57)
[2020-04-05] MEDS ORDERED: PIPERACILLIN/TAZOBACTAM 3.375 GM in DEXTROSE 5% 100 ML IV SCH (13:00)
[2020-04-05] MEDS ORDERED: LIDOCAINE HCL 1% 20 ML VIAL ONE (13:35)
--- NOTE | 2020-04-05 13:56 | Progress Notes ---
DATE: 04/05/2020 SUBJECTIVE: The patient's altered mental status has deteriorated probably on the basis of uremia. He is having a central line placed currently, he is to begin hemodialysis, which will be somewhat risky given his systolic blood pressure of 90. Overall, his liver function is compensated. His ammonia level is normal. His INR is elevated, but his platelet count and white count are actually high, probably from infection or combination of uremia. His urine culture and 2 blood cultures were negative. An MRI of his foot, however, shows that he probably has cellulitis and he is currently receiving Flagyl and, it looks like, Levaquin for that. Pulse 71, blood pressure was 150/66 earlier today, currently 90/66. Urine output is only 270 mL over the last 24 hours. White count is 12.43, hemoglobin 8, MCV 102.7, platelets are 471,000. INR 3.8. Sodium 128, BUN 122, creatinine 6.76, total bilirubin 2.4, AST 25, ALT 12, alkaline phosphatase 136, albumin 3.1. Hepatitis B surface antigen is negative. Ultrasound of his abdomen just showed minimal trace ascites, too small to tap. IMPRESSION: The patient is getting worse mentally, probably from the basis of uremia. His liver actually seems relatively well compensated. I agree with proceeding with hemodialysis at this time provided he can tolerate it given his low blood pressure. Obviously at this point, his prognosis is quite guarded. TESSIED
--- NOTE | 2020-04-05 14:34 | Procedure Note ---
Procedure Note Date of Service April 05, 2020 Note Procedure:Double Lumen Dialysis Catheter Indication: Dialysis access Consent: Signed consent in chart. I reviewed risks of procedure which include but are not limited to bleeding, pneuomothorax, infection and need for blood transfusion. Alternatives to procedure are not available short of foregoing life saving diaysis treatments. Patient's consented to procedure and had opportunity to ask questions. Labs: INR and Plts were checked prior to procedure Procedure: Using local anesthesia and sterile technique the right IJ vein was cannulated w/ a single stick without difficulty. Dark, non pulsatile blood was aspirated at which point using sterile seldinger method a double lumen dialysis catheter was inserted without difficulty to 15 CM. Dark, non-pulsatile blood was aspirated from all ports. Line was sutured in place and dressed. Patient tolerated procedure without complications. Follow up CXR to document location and rule out pneumothorax is pending. Coding CPT Codes Tubes, Drains, and Vasc Access - Tubes, Drains, and Vasc Access: [id number] Place catheter in vein superior or inferior vena cava ([id number]) Tubes, Drains, and Vasc Access - Tubes, Drains, and Vasc Access: [id number] Ultrasound Guidance For Vascular ([id number]) [facility] [place] Procedure Codes (Charges) Tubes, Drains, and Vasc Access Procedure 1: Tubes, Drains, and Vasc Access: [id number] Place catheter in vein superior or inferior vena cava Procedure 2: Tubes, Drains, and Vasc Access: [id number] Ultrasound Guidance For Vascular
--- NOTE | 2020-04-05 14:40 | Critical Care Consultation ---
Date of Consultation April 05, 2020 Assessment & Plan (1) Acute renal failure (ARF): Right-sided double-lumen dialysis catheter was placed successfully. Chest x-ray confirms adequate placement. Okay to proceed with dialysis. Thank you for the consult. Will sign off. (2) Uremia: History of Present Illness Reason for Consultation: Placement of temporary dialysis catheter Requesting Physician: Dr. Bain Attending Physician: Italo Hogan History of Present Illness 74-year-old male admitted to the hospital on 04/03/2020 due to acute renal failure with a creatinine of 5.94. Patient was also found to be uremic. He has a history of mechanical heart valve and is currently on warfarin. He is being treated for cellulitis of the right great toe. MRI is negative for osteomyelitis. Due to increasing BUN and creatinine, critical care was consulted for placement of temporary dialysis catheter. This was successfully placed today on 04/05/2020. Chest x-ray was reviewed with adequate placement and no complications. Patient unable to participate in any significant history taking due to uremia. I did discuss with the and obtain consent from the patient's . She was agreeable with proceeding with dialysis catheter placement and understood the risks and benefits. Allergies Allergy/AdvReac Type Severity Reaction Status Date / Time enoxaparin Allergy Unknown Illness Verified 04/03/20 17:25 morphine Allergy Unknown Unknown Verified 04/03/20 17:26 adhesive AdvReac Unknown SORES WITH Verified 04/03/20 17:26 "SOME TAPE" oxycodone AdvReac Unknown HALLUCINATI Verified 04/03/20 17:26 ONS Home Medications Medication Instructions Recorded Confirmed Type allopurinol [Zyloprim] 300 mg PO QAM 01/09/18 04/03/20 History gemfibrozil [Lopid] 600 mg PO QAM 01/09/18 04/03/20 History glipizide [Glucotrol] 10 mg PO BID 01/09/18 04/03/20 History pantoprazole [Protonix] 40 mg PO QAM 01/09/18 04/03/20 History aspirin [Ecotrin Low Strength] 81 mg PO QAM #30 tab 01/14/18 04/03/20 Rx Lantus Solostar U-100 Insulin 15 unit SUBCUT DAILY@2100 11/12/18 04/03/20 History pregabalin 50 mg PO BID 03/22/19 04/03/20 History metoprolol tartrate 100 mg tablet 100 mg PO BID 05/01/19 04/03/20 History furosemide 40 mg tablet 80 mg PO BID tab 09/04/19 04/03/20 History levothyroxine 50 mcg PO QAM 02/22/20 04/03/20 History warfarin 2.5 mg PO 3XWK 02/22/20 04/03/20 History warfarin 5 mg PO 4XWK 02/22/20 04/03/20 History Patient History Medical History Afib Amputation of left lower extremity below knee Anemia Bronchitis CHF (congestive heart failure) Diabetes GERD (gastroesophageal reflux disease) Gout Hyperlipidemia Hypertension Thrombocytosis Surgical History History of appendectomy History of cholecystectomy Mechanical heart valve present 1997 S/P AKA (above knee amputation) unilateral Family History Other Family history of diabetes mellitus Social History Smoking Status: Unknown if ever smoked Second Hand Exposure: No; Hx Alcohol Use: No Hx Substance Use: No Preferred Language: [place]atian Communication Ability: Effective Visual Impairment: No Limitations Molecular Pathologist Required: No Beliefs That Will Affect Care: None marital status: Current Living Situation: Family Other Information That Helps Us Care for You: No Feels Safe at Home: Yes Safety Concerns: Feels Safe At This Time Assistive Devices: Wheelchair Review of Systems Review of Systems: All systems reviewed & are unremarkable except as noted in HPI & below and Unobtainable due to reduced consciousness Physical Exam Constitutional: Morbidly obese appearing male who is lethargic, but able to answer questions appropriately at times. He thinks that he is in [place]. Eyes: PERRL, conjunctivae normal, anicteric sclerae ENMT: external ear and nose normal, oropharynx normal Neck: + thick neck Respiratory: normal respiratory effort Diminished breath sounds bilaterally. Cardiovascular: Heart Sounds: normal S1 and normal S2 Extremities: no edema Gastrointestinal (Abdomen): normal bowel sounds, soft, nontender, no hepatosplenomegaly Musculoskeletal: no cyanosis or clubbing, extremities motor strength 5/5 Skin: no rashes, warm and dry Neurologic: PERRL, EOMI, accommodation nl, no face palsy, no dysarthria Psychiatric: A+Ox3, euthymic affect Results & Data Results & Data ([facility]) Vital Signs (Past 12 Hours) Vital Signs Temp Pulse Resp BP BP Pulse Ox 04/05/20 14:08 71 98/64 L 99 04/05/20 12:01 97.9 F 71 18 150/66 H 95 04/05/20 07:43 97.7 F 76 18 119/64 93 04/05/20 02:36 98.2 F 78 20 101/51 L 92 I reviewed the vital signs, labs and imaging Coding Level of Care Code 52862 Inpt Consult Level 5 Diagnoses Acute renal failure (ARF) N17.9 Acute renal failure type: unspecified Uremia N19 (1) Acute renal failure (ARF) Acute renal failure type: unspecified Qualified Code(s): N17.9 - Acute kidney failure, unspecified
--- NOTE | 2020-04-05 14:42 | XRay Report ---
XR chest 1V portable HISTORY: dialysis cath placement COMPARISON: Chest 04/03/2020. FINDINGS: Cardiac silhouette remains moderately enlarged. There are poststernotomy changes. Interstit ial/vascular thickening consistent with mild congestive change. This is similar to the prior study. N o new focal lung consolidations to suggest pneumonia. No pneumothorax. No pleural effusions. Interval placement of right jugular central venous catheter terminates at the proximal SVC. IMPRESSION: 1. Right jugular catheter terminates at the proximal SVC. 2. Cardiomegaly with mild congestive change. This is similar to the prior study. ACT 112: Negative or not required by law. Electronically signed by: Leopoldo Del Real M.D. 04/05/2020 2:40 PM
[2020-04-05] MEDS ORDERED: LIDOCAINE HCL 1% 20 ML VIAL INJ ONE (14:47)
[2020-04-05] MEDS: CARBOHYDRATES FOR HYPOGLYCEMIA PO PRN (16:36)
[2020-04-05] MEDS: metroNIDAZOLE 500 MG/100 ML BAG IV SCH ×2 (17:07→21:59)
[2020-04-05] MEDS ORDERED: INSULIN GLARGINE SOLOSTAR 100 UNITS/ML 3 ML PEN SQ SCH (21:00)
[2020-04-05] MEDS ORDERED: PHARMACY GLYCEMIC MGMT CONSULT PRN (22:01)
--- NOTE | 2020-04-05 22:28 | Hospitalist Progress Note ---
Date of Service April 05, 2020 Assessment & Plan (1) Acute renal failure (ARF): - Admit to med tele - Cr significantly elevated compared to 1 month ago. Cr. 6.76 up from 2.01 - Volume overloaded in RLE as well as in the left thigh - no improvement after albumin on day 1 of admission. - Nephro consulted for possible needs for dialysis: plan is to hold warfarin and to get HD done if renal function does not improve. -Consulted Critical care for placement of temp cath for dialysis. - will have dialysis later today. - Pt discharged home from [facility] day prior to this admission. - Hx of UTI with enterococcus, previous admission was pansensitive - can cover with levaquin after obtaining ua and culture. Due to foot infection: added metronidazol and will continue levaquin. (2) Acute uremia: - Urine not yet obtained, elevated BUN of 113 compared to 54 at time of last admission - Nephro consult - Follow am bmp - Possible that altered mental status is due to uremic encephalopathy (3) Acute diastolic (congestive) heart failure: - Appears volume overloaded, however with ARF will hold lasix and give small amount of fluid as above - Preserved EF of 50-55% from 02/23/20 - Continue metoprolol tartrate 100 mg BID (4) Hyperlipidemia: - Cont Lopid 600 mg QAM (5) Mechanical heart valve present: - Inserted in 1988, prosthetic aortic valve - Risk for endocarditis with valve in place - Cover with levaquin after obtaining urine as above, wise cath placement - Afebrile, no leukocytosis. 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 (8) Cirrhosis: - Thought to be CHANG without prior etoh use - Hep C neg, Hep BsAg negative - Hx of hepatic encephalopathy-patient reports feeling dopey recently, will hold lactulose for now with likely uremic encephalopathy vs hepatic encephalopathy currently, once resume then titrate for 2-3 BMs daily - ammonia 32 on admission - Has been previously requested to have GI follow-up, as patient just got out of [facility], he had not yet been able to follow-up with GI (9) Hyponatremia: - 130 on admission -128 today - Fluid restrict with diet, (10) Diabetes: - Hold glipizide -ISS with Accu-Cheks ACHS -Continue Lantus 15 units hs -Check A1c with a.m. labs , 6.1 on 01/12/20 (11) Gout: -Continue allopurinol (12) GERD (gastroesophageal reflux disease): -Continue Protonix daily (13) Cellulitis of right toe: will obtain MRI to rule out osteomyelitis. This was ruled out. But signs of cellulitis and myositis. will continue levaquin and add flagyl. appreciate wound care input (14) Morbid obesity with BMI of 40.0-44.9, adult: -History of such, diet and exercise encouraged Called and discussed the pts care with over the phone, did not pear picker phone. DVT ppx: - teds, scds, holding Coumadin as above CODE: DNR/DNI Consulted speech for swallow eval. Admission and Anticipated Discharge Date Admission Date: April 03, 2020 Subjective Patient is more awake today, but remains confused. He is seen coughing when trying to drink fluid with straw. Review of Systems Review of Systems: All systems reviewed & are unremarkable except as noted in HPI & below Physical Exam Physical Exam: General: alert, no apparent distress, + morbidly obese Head: Normocephalic, atraumatic ENT: PERRL, EOMI, no pharyngeal exudate, mucous membranes dry Chest: Clear to auscultation, on room air, no adventitious breath sounds Back: Patient with multiple areas of ecchymosis of the right shoulder blade region and right flank region Cardiac: Regular rate and rhythm, + mechanical valve click, no JVD, normal peripheral pulses, good capillary refill Abdominal: NABS x 4 quadrants, soft, nondistended, nontender to palpation, no rebound or guarding Extremities: Left AKA, 2 device pitting edema in LLE, no erythema, calfs nontender to palpation, right toe is dressed (picture noted in chart). Psych: Depressed mood and flat affect Neuro: strength intact bilaterally and rated 3/5 ble, does not ambulate at baseline, no gross motor deficits, speech is slowed but clear, no peripheral sensory deficits Skin: Erythema over sacral decub region, no ulceration or skin breakdown. Areas of ecchymosis over R shoulder blade region and upper extremities Results & Data Results & Data ([facility]) Vital Signs (Past 12 Hours) Vital Signs Temp Pulse Pulse Pulse Resp BP BP 04/05/20 20:30 37 C 72 18 04/05/20 19:59 36.5 C 75 04/05/20 19:40 76 109/52 L 04/05/20 19:20 67 98/47 L 04/05/20 19:00 70 110/50 L 04/05/20 18:40 64 116/41 L 04/05/20 18:20 73 97/54 L 04/05/20 18:00 71 122/61 04/05/20 17:45 70 133/53 L 04/05/20 17:39 36.3 C L 76 04/05/20 15:36 73 04/05/20 15:22 36.2 C L 71 16 97/62 L 04/05/20 14:08 71 98/64 L 04/05/20 12:01 36.6 C 71 18 BP Pulse Ox 04/05/20 20:30 99/63 L 93 04/05/20 19:59 103/61 04/05/20 19:40 04/05/20 19:20 04/05/20 19:00 04/05/20 18:40 04/05/20 18:20 04/05/20 18:00 04/05/20 17:45 04/05/20 17:39 04/05/20 15:36 04/05/20 15:22 97 04/05/20 14:08 99 04/05/20 12:01 150/66 H 95 PG Care Time/CCT Total # of Minutes Spent Total Time Spent with Patient: Total time spent is greater than 50% in coordination of care (as documented) at patient's floor/unit and/or counseling patient: Coding Level of Care Code 37613 Subseq Hosp Care Lvl 3 Diagnoses Acute renal failure (ARF) N17.9 Acute renal failure type: unspecified Acute uremia N19 Acute diastolic (congestive) heart failure I50.31 Hyperlipidemia E78.5 Hyperlipidemia type: unspecified Mechanical heart valve present Z95.2 Hypertension I10 Hypertension type: essential hypertension Anemia D64.9 Anemia type: unspecified type Cirrhosis K74.60; R18.8 Ascites presence: with ascites Hepatic cirrhosis type: unspecified hepatic cirrhosis Hyponatremia E87.1 Diabetes E11.42; Z79.4 Diabetes mellitus complication detail: with polyneuropathy Diabetes mellitus complication status: with neurologic complications 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 inspector insulin use: with nursing home use Diabetes mellitus type: type 2 Gout M10.9 Chronicity: unspecified Gout etiology: unspecified cause Gout site: unspecified site GERD (gastroesophageal reflux disease) K21.9 Esophagitis presence: esophagitis presence not specified Cellulitis of right toe L03.031 Morbid obesity with BMI of 40.0-44.9, adult E66.01; Z68.41 Time Spent (min) 35 (1) Diabetes Diabetes mellitus complication detail: with polyneuropathy Diabetes mellitus complication status: with neurologic complications Diabetes mellitus nursing home insulin use: with nursing home use Diabetes mellitus type: type 2 Qualified Code(s): E11.42 - Type 2 diabetes mellitus with diabetic polyneuropathy; Z79.4 - termite inspector (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 insulin (2) Gout Chronicity: unspecified Gout etiology: unspecified cause Gout site: unspecified site Qualified Code(s): M10.9 - Gout, unspecified (3) Acute renal failure (ARF) Acute renal failure type: unspecified Qualified Code(s): N17.9 - Acute kidney failure, unspecified (4) Anemia Anemia type: unspecified type Qualified Code(s): D64.9 - Anemia, unspecified (5) Hyperlipidemia Hyperlipidemia type: unspecified Qualified Code(s): E78.5 - Hyperlipidemia, unspecified (6) Cirrhosis Ascites presence: with ascites Hepatic cirrhosis type: unspecified hepatic cirrhosis Qualified Code(s): K74.60 - Unspecified cirrhosis of liver; R18.8 - Other ascites (7) GERD (gastroesophageal reflux disease) Esophagitis presence: esophagitis presence not specified Qualified Code(s): K21.9 - Gastro-esophageal reflux disease without esophagitis (8) Hypertension Hypertension type: essential hypertension Qualified Code(s): I10 - Essential (primary) hypertension
[2020-04-05] MEDS: levoFLOXacin/D5W 250 MG/50 ML BAG IV SCH (22:37)
[2020-04-06] MEDS: DEXTROSE 50% 50 ML SYRINGE IV PRN (04:04)
[2020-04-06] MEDS: LEVOTHYROXINE SODIUM 50 MCG TABLET PO SCH (05:35)
[2020-04-06] MEDS: metroNIDAZOLE 500 MG/100 ML BAG IV SCH ×3 (05:35→20:37)
[2020-04-06 06:44] LABS: Hematocrit (blood only) 26.2 % (42-52); Hemoglobin 8.1 g/dL (14.0-18.0); Mean Corpuscular Hemoglobin 31.5 pg (25-34); Mean Corpuscular Hgb Conc 30.9 g/dL (32-36); Mean Corpuscular Volume 101.9 fL (80-100); Mean Platelet Volume 11.4 fL (7.4-10.4); Nucleated RBC % (auto) 0.7 %; Platelet Count 517 K/uL (130-400); RDW Coefficient of Variation 20.5 % (11.5-14.5); RDW Standard Deviation 74.8 fL (36.4-46.3); Red Blood Count 2.57 M/uL (4.7-6.1)
[2020-04-06 06:50] LABS: INR 3.3 (0.9-1.1)
[2020-04-06] MEDS ORDERED: SODIUM CHLORIDE 0.9% 1000ML 1,000 ML IV PRN (07:00)
[2020-04-06 07:18] LABS: Albumin Globulin Ratio 0.7 (0.9-2); Albumin Level 2.9 gm/dl (3.4-5.0); BUN Creatinine Ratio 16.1 (10-20); Bilirubin,Total 2.4 mg/dl (0.2-1); Calcium 8.3 mg/dl (8.5-10.1); Creatinine Clr Calc Pharmacy 14.9 ml/min; Est GFR (African American) 9.5; Est GFR (Non-African American) 8.2; Globulin 4.1 gm/dl (2.5-4.0)
[2020-04-06] MEDS: CARBOHYDRATES FOR HYPOGLYCEMIA PO PRN (07:35)
[2020-04-06] MEDS: PANTOprazole 40 MG TAB PO SCH (08:22)
[2020-04-06] MEDS: PREGABALIN 50 MG CAP PO SCH (08:22)
[2020-04-06] MEDS: INSULIN ASPART 100 UNITS/ML 3 ML PEN SC SCH ×4 (08:22→21:45)
[2020-04-06] MEDS: METOPROLOL TARTRATE 100 MG TAB PO SCH ×2 (08:22→20:34)
[2020-04-06] MEDS: gemfibroziL 600 MG TAB PO SCH (08:22)
[2020-04-06] MEDS: ASPIRIN 81 MG ECTAB PO SCH (08:22)
[2020-04-06] MEDS: allopurinoL 300 MG TAB PO SCH (08:22)
[2020-04-06] MEDS ORDERED: DEXTROSE 10% 1,000 ML IV SCH (09:30)
--- NOTE | 2020-04-06 11:56 | Nephrology Progress Note ---
Date of Service April 06, 2020 Assessment & Plan (1) Acute renal failure (ARF): * LINO - ddx includes type I HRS, ATN related to RLE cellulitis/myositis * Blood and urine cultures are NGTD * Renal US 04/04/20: R 10.3cm, L 12.1cm. No hydronephrosis, calculi or mass. * Progressive renal dysfunction and azotemia despite IV hydration, albumin, midodrine and octreotide administration. Therapy has been stopped. * Non-tunneled HD catheter placed yesterday (04/05/2019). * Completed 1st HD treatment 04/05/2019. * HD orders for today are in EMR and have been reviewed with HD RN. (2) Chronic kidney disease: * Baseline Cr 2.0 (3) Urinary tract infection: * Treated for Enterococcus Faecalis UTI 02/22 * Follow up urine culture results are negative (4) Wound of foot: * Partial avulsion of R great toe nail * 04/04/20 MRI R foot reveals cellulitis/myositis (5) Cirrhosis: Admission and Anticipated Discharge Date Admission Date: April 03, 2020 Subjective No acute events overnight. Remains confused. No fevers or chills. Denies pain. Tolerated 1st HD treatment yesterday without complications. Review of Systems Review of Systems: All systems reviewed & are unremarkable except as noted in HPI & below Physical Exam Constitutional: well developed, + obese and + altered mental status; no acute distress Eyes: no scleral abnormality and no corneal abnormality ENMT: Mouth: no oral mucosal abnormality and oral mucous membranes not dry Neck: normal visual inspection and trachea midline Respiratory: normal respiratory effort Auscultation: lungs clear to auscultation bilaterally Cardiovascular: Rate/Rhythm: regular rate Heart Sounds: normal S1 and normal S2 Extremities: no edema Gastrointestinal (Abdomen): Inspection/Auscultation: + abdomen distended Percussion/Palpation: abdomen nontender Musculoskeletal: Extremities: no cyanosis and no clubbing Skin: normal turgor; no lesions Neurologic: Motor/Sensory: no tremor and no asterixis Psychiatric: Orientation: alert and oriented x 3 Results & Data ([facility]) Vital Signs (Past 12 Hours) Vital Signs Temp Pulse Pulse Resp BP Pulse Ox 04/06/20 11:03 36.8 C 79 20 99/52 L 93 04/06/20 07:41 36.3 C L 79 18 99/60 L 94 04/06/20 04:00 36.4 C L 74 20 103/60 93 04/06/20 03:34 76 Laboratory Results Laboratory Results - last 24 hr 04/05/20 04/05/20 04/05/20 16:25 16:26 16:52 WBC RBC Hgb Hct MCV MCH MCHC RDW Std Deviation RDW Coeff of Jose Plt Count MPV Absolute Nucleated RBC Nucleated RBC % (auto) PT INR Sodium Potassium Chloride Carbon Dioxide Anion Gap BUN Creatinine Est Cr Clr Drug Dosing Est GFR ( Amer) Est GFR (Non-Af Amer) BUN/Creatinine Ratio Glucose POC Glucose 47 L* 49 L* 53 L* Calcium Total Bilirubin AST ALT Alkaline Phosphatase Total Protein Albumin Globulin Albumin/Globulin Ratio 04/05/20 04/05/20 04/06/20 17:15 20:18 00:04 WBC RBC Hgb Hct MCV MCH MCHC RDW Std Deviation RDW Coeff of Jose Plt Count MPV Absolute Nucleated RBC Nucleated RBC % (auto) PT INR Sodium Potassium Chloride Carbon Dioxide Anion Gap BUN Creatinine Est Cr Clr Drug Dosing Est GFR ( Amer) Est GFR (Non-Af Amer) BUN/Creatinine Ratio Glucose POC Glucose 154 H 99 72 Calcium Total Bilirubin AST ALT Alkaline Phosphatase Total Protein Albumin Globulin Albumin/Globulin Ratio 04/06/20 04/06/20 04/06/20 03:56 03:58 04:22 WBC RBC Hgb Hct MCV MCH MCHC RDW Std Deviation RDW Coeff of Jose Plt Count MPV Absolute Nucleated RBC Nucleated RBC % (auto) PT INR Sodium Potassium Chloride Carbon Dioxide Anion Gap BUN Creatinine Est Cr Clr Drug Dosing Est GFR ( Amer) Est GFR (Non-Af Amer) BUN/Creatinine Ratio Glucose POC Glucose 46 L* 51 L* 91 Calcium Total Bilirubin AST ALT Alkaline Phosphatase Total Protein Albumin Globulin Albumin/Globulin Ratio 04/06/20 04/06/20 04/06/20 06:29 06:29 06:29 WBC 14.20 H RBC 2.57 L Hgb 8.1 L Hct 26.2 L MCV 101.9 H MCH 31.5 MCHC 30.9 L RDW Std Deviation 74.8 H RDW Coeff of Jose 20.5 H Plt Count 517 H MPV 11.4 H Absolute Nucleated RBC 0.10 H Nucleated RBC % (auto) 0.7 PT 33.0 H INR 3.3 H Sodium 130 L Potassium 5.0 Chloride 95 L Carbon Dioxide 24 Anion Gap 11.0 BUN 99 H Creatinine 6.14 H* D Est Cr Clr Drug Dosing 14.9 Est GFR ( Amer) 9.5 Est GFR (Non-Af Amer) 8.2 BUN/Creatinine Ratio 16.1 Glucose 64 L POC Glucose Calcium 8.3 L Total Bilirubin 2.4 H AST 30 ALT 14 Alkaline Phosphatase 134 H Total Protein 7.0 Albumin 2.9 L Globulin 4.1 H Albumin/Globulin Ratio 0.7 L 04/06/20 04/06/20 04/06/20 07:29 07:29 07:53 WBC RBC Hgb Hct MCV MCH MCHC RDW Std Deviation RDW Coeff of Jose Plt Count MPV Absolute Nucleated RBC Nucleated RBC % (auto) PT INR Sodium Potassium Chloride Carbon Dioxide Anion Gap BUN Creatinine Est Cr Clr Drug Dosing Est GFR ( Amer) Est GFR (Non-Af Amer) BUN/Creatinine Ratio Glucose POC Glucose 65 L* 61 L* 69 L* Calcium Total Bilirubin AST ALT Alkaline Phosphatase Total Protein Albumin Globulin Albumin/Globulin Ratio 04/06/20 07:56 WBC RBC Hgb Hct MCV MCH MCHC RDW Std Deviation RDW Coeff of Jose Plt Count MPV Absolute Nucleated RBC Nucleated RBC % (auto) PT INR Sodium Potassium Chloride Carbon Dioxide Anion Gap BUN Creatinine Est Cr Clr Drug Dosing Est GFR ( Amer) Est GFR (Non-Af Amer) BUN/Creatinine Ratio Glucose POC Glucose 72 Calcium Total Bilirubin AST ALT Alkaline Phosphatase Total Protein Albumin Globulin Albumin/Globulin Ratio PG Care Time/CCT Total # of Minutes Spent Total Time Spent with Patient: Total time spent is greater than 50% in coordination of care (as documented) at patient's floor/unit and/or counseling patient: Coding Level of Care Code 68317 Subseq Hosp Care Lvl 3 Diagnoses Acute renal failure (ARF) N17.9 Acute renal failure type: unspecified Chronic kidney disease N18.9 Urinary tract infection N30.01 Hematuria presence: with hematuria Urinary tract infection type: acute cystitis Wound of foot S91.309A Cirrhosis K74.60; R18.8 Hepatic cirrhosis type: unspecified hepatic cirrhosis Ascites presence: with ascites (1) Acute renal failure (ARF) Acute renal failure type: unspecified Qualified Code(s): N17.9 - Acute kidney failure, unspecified (2) Urinary tract infection Hematuria presence: with hematuria Urinary tract infection type: acute cystitis Qualified Code(s): N30.01 - Acute cystitis with hematuria (3) Cirrhosis Hepatic cirrhosis type: unspecified hepatic cirrhosis Ascites presence: with ascites Qualified Code(s): K74.60 - Unspecified cirrhosis of liver; R18.8 - Other ascites
--- NOTE | 2020-04-06 13:49 | Hospitalist Progress Note ---
Date of Service April 06, 2020 Assessment & Plan (1) Acute metabolic encephalopathy: Likely 2nd uremia. Cannot rule out infectious cause. Cannot rule out high ammonia level. Remains on IV antibiotics for right foot cellulitis. Check ammonia level am. Continue HD for symptomatic uremia/ARF. HOLD lyrica in setting of ARF. (2) Acute renal failure (ARF): Baseline Cr about 2 (in 02/2020). Now >6 with markedly elevated BUN. Patient w/ volume overload and uremic symptoms. Temporary HD catheter placed (right IJ) by critical care. Day #2 of HD today. Appreciate nephrology assistance. (3) Acute uremia: dialysis, session #2 today. (4) Cellulitis of right toe: MRI w/o signs of osteomyelitis or abscess. Continue levaquin and flagyl IV. If any worsening then will need MRSA coverage. Toe stable on exam today. Appreciate wound care input and recs. (5) Mechanical heart valve present: Inserted in 1988, prosthetic aortic valve. INR goal 2.5 to 3.5. INR today 3.3. (6) Hyperlipidemia: Cont Lopid 600 mg QAM (7) Hypertension: Cont Metoprolol but lower dose to 25mg BID (tartrate). Hold parameters in place for hypotension. (8) Anemia: stool heme+. Hb 8.1 today. Repeat CBC am. Very poor candidate for endoscopic eval given clinical status. 04/03 ferritin 120. (9) Cirrhosis: Thought 2nd to CHANG No prior etoh use Recheck ammonia in am due to mental status HepB, C negative No significant ascites on recent ultrasound (10) Hyponatremia: 2nd to ARF Check cortisol in am given his hypotension, hypoglycemia, etc (11) Diabetes: Since 2019 his a1c's have all been <7%. Now having hypoglycemia off of oral agents; however, with ARF, the glipizide theoretically could still be at play. For hypoglycemia - check cortisol AM. D10W at 20cc/hr to maintain euglycemia. (12) Gout: Continue allopurinol prophylaxis (13) GERD (gastroesophageal reflux disease): Continue Protonix daily (14) Morbid obesity with BMI of 40.0-44.9, adult: BMI 45 (15) Wound of foot: RIGHT great toe - local wound care (16) Chronic kidney disease: Previously stage 3 with baseline CrCl 30s/40s. Now with superimposed ARF/LINO requiring HD for symptomatic uremia & volume overload. Session #[address] Hernandez's consultation. (17) Hx of AKA (above knee amputation): LEFT (18) Hypoglycemia: see discussion above (19) DVT prophylaxis: coumadin on hold, but INR 3.3 this am extensively updated by phone tonight prognosis is guarded in light of multi-organ dysfunction DNR Admission and Anticipated Discharge Date Admission Date: April 03, 2020 Subjective saw patient while on hemodialysis today. he was quite confused. he could offer little history or ROS. dialysis nurse stated BPs were running low during the session and nephrology was aware. he had significant asterixis of left arm during my visit. fell asleep while asking him questions. this am had multiple BSGs <70 requiring institution of dextrose 10% infusion to maintain euglycemia. updated by phone this evening. she understands how sick he is. Review of Systems Review of Systems: Unobtainable due to cognitive status Physical Exam Constitutional: + ill appearing, + morbidly obese and + altered mental status ENMT: external ear and nose normal, oropharynx normal Respiratory: no respiratory distress Auscultation: + diminished lung sounds (bases); no crackles and no wheezes Cardiovascular: Rate/Rhythm: regular rate Heart Sounds: normal S1 and no rmal S2; no murmur Vessels: + JVD, posterior tibial pulses present and dorsalis pedis pulses present Extremities: + edema (right leg - 3+ to the thigh) mechanical valve closure sound; HD catheter right IJ intact Gastrointestinal (Abdomen): Inspection/Auscultation: normal bowel sounds Percussion/Palpation: abdomen nontender Musculoskeletal: left AKA Skin: + pallor right foot - first toe nail absent; blood blister medial aspect of nailbed; mild erythema over first MTP joint area but nontender to palpation; dry skin plantar aspect Psychiatric: Orientation: oriented to person and oriented to place; + not alert and + not oriented to time Results & Data Results & Data ([facility]) Vital Signs (Past 12 Hours) Vital Signs Temp Pulse Pulse Pulse Resp BP BP 04/06/20 13:40 71 86/55 L 04/06/20 13:20 81 101/60 04/06/20 12:53 36.8 C 82 82 105/68 04/06/20 11:03 36.8 C 79 20 99/52 L 04/06/20 07:41 36.3 C L 79 18 99/60 L 04/06/20 04:00 36.4 C L 74 20 103/60 04/06/20 03:34 76 Pulse Ox 04/06/20 13:40 04/06/20 13:20 04/06/20 12:53 04/06/20 11:03 93 04/06/20 07:41 94 04/06/20 04:00 93 04/06/20 03:34 Laboratory Results Laboratory Results - last 24 hr 04/05/20 04/05/20 04/05/20 16:25 16:26 16:52 WBC RBC Hgb Hct MCV MCH MCHC RDW Std Deviation RDW Coeff of Jose Plt Count MPV Absolute Nucleated RBC Nucleated RBC % (auto) PT INR Sodium Potassium Chloride Carbon Dioxide Anion Gap BUN Creatinine Est Cr Clr Drug Dosing Est GFR ( Amer) Est GFR (Non-Af Amer) BUN/Creatinine Ratio Glucose POC Glucose 47 L* 49 L* 53 L* Calcium Total Bilirubin AST ALT Alkaline Phosphatase Total Protein Albumin Globulin Albumin/Globulin Ratio 04/05/20 04/05/20 04/06/20 17:15 20:18 00:04 WBC RBC Hgb Hct MCV MCH MCHC RDW Std Deviation RDW Coeff of Jose Plt Count MPV Absolute Nucleated RBC Nucleated RBC % (auto) PT INR Sodium Potassium Chloride Carbon Dioxide Anion Gap BUN Creatinine Est Cr Clr Drug Dosing Est GFR ( Amer) Est GFR (Non-Af Amer) BUN/Creatinine Ratio Glucose POC Glucose 154 H 99 72 Calcium Total Bilirubin AST ALT Alkaline Phosphatase Total Protein Albumin Globulin Albumin/Globulin Ratio 04/06/20 04/06/20 04/06/20 03:56 03:58 04:22 WBC RBC Hgb Hct MCV MCH MCHC RDW Std Deviation RDW Coeff of Jose Plt Count MPV Absolute Nucleated RBC Nucleated RBC % (auto) PT INR Sodium Potassium Chloride Carbon Dioxide Anion Gap BUN Creatinine Est Cr Clr Drug Dosing Est GFR ( Amer) Est GFR (Non-Af Amer) BUN/Creatinine Ratio Glucose POC Glucose 46 L* 51 L* 91 Calcium Total Bilirubin AST ALT Alkaline Phosphatase Total Protein Albumin Globulin Albumin/Globulin Ratio 04/06/20 04/06/20 04/06/20 06:29 06:29 06:29 WBC 14.20 H RBC 2.57 L Hgb 8.1 L Hct 26.2 L MCV 101.9 H MCH 31.5 MCHC 30.9 L RDW Std Deviation 74.8 H RDW Coeff of Jose 20.5 H Plt Count 517 H MPV 11.4 H Absolute Nucleated RBC 0.10 H Nucleated RBC % (auto) 0.7 PT 33.0 H INR 3.3 H Sodium 130 L Potassium 5.0 Chloride 95 L Carbon Dioxide 24 Anion Gap 11.0 BUN 99 H Creatinine 6.14 H* D Est Cr Clr Drug Dosing 14.9 Est GFR ( Amer) 9.5 Est GFR (Non-Af Amer) 8.2 BUN/Creatinine Ratio 16.1 Glucose 64 L POC Glucose Calcium 8.3 L Total Bilirubin 2.4 H AST 30 ALT 14 Alkaline Phosphatase 134 H Total Protein 7.0 Albumin 2.9 L Globulin 4.1 H Albumin/Globulin Ratio 0.7 L 04/06/20 04/06/20 04/06/20 07:29 07:29 07:53 WBC RBC Hgb Hct MCV MCH MCHC RDW Std Deviation RDW Coeff of Jose Plt Count MPV Absolute Nucleated RBC Nucleated RBC % (auto) PT INR Sodium Potassium Chloride Carbon Dioxide Anion Gap BUN Creatinine Est Cr Clr Drug Dosing Est GFR ( Amer) Est GFR (Non-Af Amer) BUN/Creatinine Ratio Glucose POC Glucose 65 L* 61 L* 69 L* Calcium Total Bilirubin AST ALT Alkaline Phosphatase Total Protein Albumin Globulin Albumin/Globulin Ratio 04/06/20 04/06/20 07:56 12:03 WBC RBC Hgb Hct MCV MCH MCHC RDW Std Deviation RDW Coeff of Jose Plt Count MPV Absolute Nucleated RBC Nucleated RBC % (auto) PT INR Sodium Potassium Chloride Carbon Dioxide Anion Gap BUN Creatinine Est Cr Clr Drug Dosing Est GFR ( Amer) Est GFR (Non-Af Amer) BUN/Creatinine Ratio Glucose POC Glucose 72 71 Calcium Total Bilirubin AST ALT Alkaline Phosphatase Total Protein Albumin Globulin Albumin/Globulin Ratio PG Care Time/CCT Total # of Minutes Spent Total Time Spent with Patient: Total time spent is greater than 50% in coordination of care (as documented) at patient's floor/unit and/or counseling patient: Coding Level of Care Code 73086 Subseq Hosp Care Lvl 3 Diagnoses Acute metabolic encephalopathy G93.41 Acute renal failure (ARF) N17.9 Acute renal failure type: unspecified Acute uremia N19 Cellulitis of right toe L03.031 Mechanical heart valve present Z95.2 Hyperlipidemia E78.5 Hyperlipidemia type: unspecified Hypertension I10 Hypertension type: essential hypertension Anemia D64.9 Anemia type: unspecified type Cirrhosis K74.60; R18.8 Ascites presence: with ascites Hepatic cirrhosis type: unspecified hepatic cirrhosis Hyponatremia E87.1 Diabetes E11.42; Z79.4 Diabetes mellitus complication detail: with polyneuropathy Diabetes mellitus complication status: with neurologic complications Diabetes mellitus supervisor intermediates insulin use: with supervisor intermediates use Diabetes mellitus type: type 2 Gout M10.9 Chronicity: unspecified Gout etiology: unspecified cause Gout site: unspecified site GERD (gastroesophageal reflux disease) K21.9 Esophagitis presence: esophagitis presence not specified Morbid obesity with BMI of 40.0-44.9, adult E66.01; Z68.41 Wound of foot S91.309A Chronic kidney disease N18.30 Chronic kidney disease stage: stage 3 (moderate) Chronic kidney disease stage 3 subtype: unspecified whether 3a or 3b Hx of AKA (above knee amputation) Z89.619 Hypoglycemia E16.2 DVT prophylaxis Z29.9 (1) Diabetes Diabetes mellitus complication detail: with polyneuropathy Diabetes mellitus complication status: with neurologic complications Diabetes mellitus supervisor intermediates insulin use: with fci use Diabetes mellitus type: type 2 Qualified Code(s): E11.42 - Type 2 diabetes mellitus with diabetic polyneuropathy; Z79.4 - ocean transportation intermediary (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 insulin (2) Gout Chronicity: unspecified Gout etiology: unspecified cause Gout site: unspecified site Qualified Code(s): M10.9 - Gout, unspecified (3) Acute renal failure (ARF) Acute renal failure type: unspecified Qualified Code(s): N17.9 - Acute kidney failure, unspecified (4) Anemia Anemia type: unspecified type Qualified Code(s): D64.9 - Anemia, unspecified (5) Hyperlipidemia Hyperlipidemia type: unspecified Qualified Code(s): E78.5 - Hyperlipidemia, unspecified (6) Cirrhosis Ascites presence: with ascites Hepatic cirrhosis type: unspecified hepatic cirrhosis Qualified Code(s): K74.60 - Unspecified cirrhosis of liver; R18.8 - Other ascites (7) GERD (gastroesophageal reflux disease) Esophagitis presence: esophagitis presence not specified Qualified Code(s): K21.9 - Gastro-esophageal reflux disease without esophagitis (8) Hypertension Hypertension type: essential hypertension Qualified Code(s): I10 - Essential (primary) hypertension (9) Chronic kidney disease Chronic kidney disease stage: stage 3 (moderate) Chronic kidney disease stage 3 subtype: unspecified whether 3a or 3b Qualified Code(s): N18.30 - Chronic kidney disease, stage 3 unspecified
--- NOTE | 2020-04-06 16:10 | Progress Notes ---
DATE: 04/06/2020 The patient remains lethargic and poorly responsive. He did not wake up with verbal or physical stimulation. The patient's MELD score calculated today is 36, which is poor prognosis. His main problem is that were elevated creatinine with associated renal failure. There are no signs of bleeding or significant ascites on ultrasound. PHYSICAL EXAMINATION: GENERAL: The patient is lying in left side in bed, breathing deeply with his eyes closed and does not arouse with verbal or shaking stimulation. LABORATORY DATA: White count 14.2, hemoglobin 8.1, platelets are 517,000. There is a cellulitis in his foot. INR 3.3. Sodium 130, creatinine 6.14, BUN 99. Bilirubin is 2.4, alkaline phosphatase 124, ALT and AST are normal. IMPRESSION: The patient is poorly responsive, probably on the basis of uremia may be developing some hepatic encephalopathy as well, but his ammonia was normal on admission. He is not awake enough now to take lactulose orally. Unfortunately, his prognosis is guarded with limited options other than dialysis and his other supportive measures at this time. We will continue to follow the patient.
[2020-04-06] MEDS: levoFLOXacin/D5W 250 MG/50 ML BAG IV SCH (20:34)
[2020-04-06] MEDS: METOPROLOL TARTRATE 25 MG TAB PO SCH (20:37)
[2020-04-07] MEDS: metroNIDAZOLE 500 MG/100 ML BAG IV SCH ×3 (06:06→20:35)
[2020-04-07] MEDS: LEVOTHYROXINE SODIUM 50 MCG TABLET PO SCH (06:06)
[2020-04-07 07:22] LABS: Hematocrit (blood only) 26.3 % (42-52); Hemoglobin 8.1 g/dL (14.0-18.0); Mean Corpuscular Hemoglobin 31.8 pg (25-34); Mean Corpuscular Hgb Conc 30.8 g/dL (32-36); Mean Corpuscular Volume 103.1 fL (80-100); Mean Platelet Volume 11.3 fL (7.4-10.4); Nucleated RBC % (auto) 0.6 %; Platelet Count 538 K/uL (130-400); RDW Standard Deviation 76.4 fL (36.4-46.3); Red Blood Count 2.55 M/uL (4.7-6.1); White Blood Count 15.54 K/uL (4.8-10.8)
[2020-04-07 07:28] LABS: INR 2.1 (0.9-1.1); Prothrombin Time 20.9 Seconds (9.0-12.0)
[2020-04-07 08:14] LABS: Albumin Level 2.8 gm/dl (3.4-5.0); BUN Creatinine Ratio 14.3 (10-20); Calcium 8.9 mg/dl (8.5-10.1); Creatinine Clr Calc Pharmacy 19.2 ml/min; Est GFR (African American) 12.8; Phosphorus 5.2 mg/dl (2.5-4.9); Potassium 4.2 mmol/L (3.5-5.1)
[2020-04-07] MEDS ORDERED: LACTULOSE SYRUP 30 GM/45 ML UDP PO STA (08:35)
[2020-04-07] MEDS: allopurinoL 300 MG TAB PO SCH (08:44)
[2020-04-07] MEDS: METOPROLOL TARTRATE 25 MG TAB PO SCH ×2 (08:44→20:36)
[2020-04-07] MEDS: PANTOprazole 40 MG TAB PO SCH (08:44)
[2020-04-07] MEDS: gemfibroziL 600 MG TAB PO SCH (08:45)
[2020-04-07] MEDS: ASPIRIN 81 MG ECTAB PO SCH (08:45)
[2020-04-07] MEDS: INSULIN ASPART 100 UNITS/ML 3 ML PEN SC SCH ×4 (08:45→20:37)
[2020-04-07] MEDS ORDERED: Nursing to Pharmacy Communication SCH ×2 (11:00)
--- NOTE | 2020-04-07 12:31 | Progress Notes ---
DATE: 04/07/2020 SUBJECTIVE: The patient has had a dramatic improvement overnight after being dialyzed. He is awake. He is conversant, but a little sluggish, sitting up in bed and eating his lunch. He said his appetite is pretty good and can wait to go home. His ammonia level has gone up a little bit over the last couple of days and is now 39.6. He was given one dose of lactulose today and has already moved his bowels 4 times, I think prior to get the lactulose and I plan on adding Xifaxan. Albumin is low at 2.8, magnesium 5.2. Creatinine is 4.8, BUN 69, which are significantly improved. Sodium slightly low at 133 and potassium is 4.2. IMPRESSION: The patient's mental status is improved. Kidney function is improving with dialysis. He still has been treated for his right foot cellulitis with Flagyl and Levaquin. I plan on adding oral Xifaxan 550 mg twice a day to help treat the elevated ammonia.
--- NOTE | 2020-04-07 12:33 | Nephrology Progress Note ---
Date of Service April 07, 2020 Assessment & Plan (1) Acute renal failure (ARF): * LINO - ddx includes type I HRS, ATN related to RLE cellulitis/myositis * Renal US 04/04/20: R 10.3cm, L 12.1cm. No hydronephrosis, calculi or mass. * Progressive renal dysfunction and azotemia despite IV hydration, albumin, midodrine and octreotide administration. Therapy has been stopped. * Non-tunneled HD catheter placed yesterday (04/05/2019). * Completed 1st HD treatment 04/05/2019. * Anticipate next HD treatment tomorrow versus Wednesday. * I spoke with Mr. Merchant's on the phone today and provided an update. (2) Chronic kidney disease: * Baseline Cr 2.0 (3) Urinary tract infection: * Treated for Enterococcus Faecalis UTI 02/22 * Follow up urine culture results are negative (4) Wound of foot: * Partial avulsion of R great toe nail * 04/04/20 MRI R foot reveals cellulitis/myositis (5) Cirrhosis: * Lactulose provided this AM Admission and Anticipated Discharge Date Admission Date: April 03, 2020 Subjective No acute events overnight. Mental status continues to wax and wane. Tolerated HD yesterday with some intradialytic hypotension. No fevers or chills. Net UF 1.5 L. Review of Systems Review of Systems: All systems reviewed & are unremarkable except as noted in HPI & below Physical Exam Constitutional: well developed, + obese and + altered mental status; no acute distress Eyes: no scleral abnormality and no corneal abnormality ENMT: Mouth: no oral mucosal abnormality and oral mucous membranes not dry Neck: normal visual inspection and trachea midline Respiratory: normal respiratory effort Auscultation: lungs clear to auscultation bilaterally Cardiovascular: Rate/Rhythm: regular rate Heart Sounds: normal S1 and normal S2 Extremities: no edema Gastrointestinal (Abdomen): Inspection/Auscultation: + abdomen distended Percussion/Palpation: abdomen nontender Musculoskeletal: Extremities: no cyanosis and no clubbing Skin: normal turgor; no lesions Neurologic: Motor/Sensory: no tremor and no asterixis Psychiatric: Orientation: alert and oriented x 3 Results & Data ([facility]) Vital Signs (Past 12 Hours) Vital Signs Temp Pulse Resp BP Pulse Ox 04/07/20 11:09 36.4 C L 67 18 115/66 95 04/07/20 07:37 36.7 C 84 20 110/59 L 94 04/07/20 04:00 36.5 C 79 20 103/65 92 Laboratory Results Laboratory Results - last 24 hr 04/05/20 04/06/20 04/06/20 09:15 16:22 18:10 WBC RBC Hgb Hct MCV MCH MCHC RDW Std Deviation RDW Coeff of Jose Plt Count MPV Absolute Nucleated RBC Nucleated RBC % (auto) PT INR Sodium Potassium Chloride Carbon Dioxide Anion Gap BUN Creatinine Est Cr Clr Drug Dosing Est GFR ( Amer) Est GFR (Non-Af Amer) BUN/Creatinine Ratio Glucose POC Glucose 209 H Calcium Phosphorus Ammonia Albumin Procalcitonin Cortisol AM Sample Stool Occult Bld Scrn COVID-19 Eval [facility] B Core IgM Ab NON-REACTIVE SARS-CoV-2, RNA, NAAT 04/06/20 04/06/20 04/06/20 18:10 18:10 20:18 WBC RBC Hgb Hct MCV MCH MCHC RDW Std Deviation RDW Coeff of Jose Plt Count MPV Absolute Nucleated RBC Nucleated RBC % (auto) PT INR Sodium Potassium Chloride Carbon Dioxide Anion Gap BUN Creatinine Est Cr Clr Drug Dosing Est GFR ( Amer) Est GFR (Non-Af Amer) BUN/Creatinine Ratio Glucose POC Glucose > 600 H* Calcium Phosphorus Ammonia Albumin Procalcitonin Cortisol AM Sample Stool Occult Bld Scrn Positive A COVID-19 Eval Order Hep B Core IgM Ab SARS-CoV-2, RNA, NAAT NEGATIVE 04/06/20 04/06/20 04/06/20 20:19 20:41 23:46 WBC RBC Hgb Hct MCV MCH MCHC RDW Std Deviation RDW Coeff of Jose Plt Count MPV Absolute Nucleated RBC Nucleated RBC % (auto) PT INR Sodium Potassium Chloride Carbon Dioxide Anion Gap BUN Creatinine Est Cr Clr Drug Dosing Est GFR ( Amer) Est GFR (Non-Af Amer) BUN/Creatinine Ratio Glucose 140 H POC Glucose 146 H 171 H Calcium Phosphorus Ammonia Albumin Procalcitonin Cortisol AM Sample Stool Occult Bld Scrn COVID-19 Eval Order Hep B Core IgM Ab SARS-CoV-2, RNA, NAAT 04/07/20 04/07/20 04/07/20 03:55 07:04 07:04 WBC 15.54 H RBC 2.55 L Hgb 8.1 L Hct 26.3 L MCV 103.1 H MCH 31.8 MCHC 30.8 L RDW Std Deviation 76.4 H RDW Coeff of Jose 21.0 H Plt Count 538 H MPV 11.3 H Absolute Nucleated RBC 0.10 H Nucleated RBC % (auto) 0.6 PT INR Sodium Potassium Chloride Carbon Dioxide Anion Gap BUN Creatinine Est Cr Clr Drug Dosing Est GFR ( Amer) Est GFR (Non-Af Amer) BUN/Creatinine Ratio Glucose POC Glucose 155 H Calcium Phosphorus Ammonia 39.6 H Albumin Procalcitonin Cortisol AM Sample Stool Occult Bld Scrn COVID-19 Eval Order Hep B Core IgM Ab SARS-CoV-2, RNA, NAAT 04/07/20 04/07/20 04/07/20 07:04 07:04 07:04 WBC RBC Hgb Hct MCV MCH MCHC RDW Std Deviation RDW Coeff of Jose Plt Count MPV Absolute Nucleated RBC Nucleated RBC % (auto) PT 20.9 H INR 2.1 H Sodium 133 L Potassium 4.2 D Chloride 98 Carbon Dioxide 24 Anion Gap 11.0 BUN 69 H Creatinine 4.80 H* D Est Cr Clr Drug Dosing 19.2 Est GFR ( Amer) 12.8 Est GFR (Non-Af Amer) 11.0 BUN/Creatinine Ratio 14.3 Glucose 133 H POC Glucose Calcium 8.9 Phosphorus 5.2 H Ammonia Albumin 2.8 L Procalcitonin Cortisol AM Sample 24.18 H Stool Occult Bld Scrn COVID-19 Eval Order Hep B Core IgM Ab SARS-CoV-2, RNA, NAAT 04/07/20 04/07/20 04/07/20 07:04 07:31 11:39 WBC RBC Hgb Hct MCV MCH MCHC RDW Std Deviation RDW Coeff of Jose Plt Count MPV Absolute Nucleated RBC Nucleated RBC % (auto) PT INR Sodium Potassium Chloride Carbon Dioxide Anion Gap BUN Creatinine Est Cr Clr Drug Dosing Est GFR ( Amer) Est GFR (Non-Af Amer) BUN/Creatinine Ratio Glucose POC Glucose 153 H 219 H Calcium Phosphorus Ammonia Albumin Procalcitonin 0.29 Cortisol AM Sample Stool Occult Bld Scrn COVID-19 Eval Order Hep B Core IgM Ab SARS-CoV-2, RNA, NAAT PG Care Time/CCT Total # of Minutes Spent Total Time Spent with Patient: Total time spent is greater than 50% in coordination of care (as documented) at patient's floor/unit and/or counseling patient: Coding Level of Care Code 35425 Subseq Hosp Care Lvl 3 Diagnoses Acute renal failure (ARF) N17.9 Acute renal failure type: unspecified Chronic kidney disease N18.30 Chronic kidney disease stage: stage 3 (moderate) Chronic kidney disease stage 3 subtype: unspecified whether 3a or 3b Urinary tract infection N30.01 Hematuria presence: with hematuria Urinary tract infection type: acute cystitis Wound of foot S91.309A Cirrhosis K74.60; R18.8 Hepatic cirrhosis type: unspecified hepatic cirrhosis Ascites presence: with ascites (1) Acute renal failure (ARF) Acute renal failure type: unspecified Qualified Code(s): N17.9 - Acute kidney failure, unspecified (2) Chronic kidney disease Chronic kidney disease stage: stage 3 (moderate) Chronic kidney disease stage 3 subtype: unspecified whether 3a or 3b Qualified Code(s): N18.30 - Chronic kidney disease, stage 3 unspecified (3) Urinary tract infection Hematuria presence: with hematuria Urinary tract infection type: acute cystitis Qualified Code(s): N30.01 - Acute cystitis with hematuria (4) Cirrhosis Hepatic cirrhosis type: unspecified hepatic cirrhosis Ascites presence: with ascites Qualified Code(s): K74.60 - Unspecified cirrhosis of liver; R18.8 - Other ascites
--- NOTE | 2020-04-07 15:04 | Pharmacy Report ---
Pharmacy Glycemic Short Note 2 - Date of Service April 07, 2020 - Glycemic Short BSG Results (Last 24 hours): 04/06/20 04/06/20 04/06/20 16:22 20:18 20:19 Glucose POC Glucose 209 H > 600 H* 146 H 04/06/20 04/06/20 04/07/20 20:41 23:46 03:55 Glucose 140 H POC Glucose 171 H 155 H 04/07/20 04/07/20 04/07/20 07:04 07:31 11:39 Glucose 133 H POC Glucose 153 H 219 H OUTPATIENT ANTIDIABETIC REGIMEN: * Lantus 15 units daily, glipizide ASSESSMENT: * 74 year old with metabolic encephalopathy, cellulitis, CKD 3 with LINO on admission requiring HD * Pharmacy consulted as BSGs have been low on admission, likely related to too much basal/home glipizide in combination with LINO * Had been started on D10 infusion yesterday, and BSGs moderately controlled. Only SSI ordered * D10 infusion stopped yesterday evening. BSGs this AM 150s, lunch time trending up - plan to tighten CF/CR * May add small basal scale for HS PLAN FOR INPATIENT GLYCEMIC CONTROL: * Hold outpatient oral diabetes medications * Basal insulin * Lantus 0-8 units hs * Bolus insulin * NovoLog per scale ACHS or Q6hrs while NPO * Goal Range: Low 110 mg/dL - High 160 mg/dL * Correction Factor: 30 mg/dL/unit * Nutritional / Prandial insulin per carb ratio of 1 unit per 15 grams CHO consumed PLAN FOR DISCHARGE: * tbd
[2020-04-07] MEDS: INSULIN GLARGINE SOLOSTAR 100 UNITS/ML 3 ML PEN SQ SCH (20:35)
[2020-04-07] MEDS: levoFLOXacin/D5W 250 MG/50 ML BAG IV SCH (20:35)
[2020-04-07] MEDS: rifAXIMin 550 MG TABLET PO SCH (20:36)
--- NOTE | 2020-04-07 23:40 | Hospitalist Progress Note ---
Date of Service April 07, 2020 Assessment & Plan (1) Acute metabolic encephalopathy: Likely 2nd uremia and mild hepatic encephalopathy. IMPROVED today with HD. Lactulose x 1 given. GI started rifaximin BID> Cannot rule out infectious cause (cellulitis right foot) contributing to confusion. Continue HD for symptomatic uremia/ARF. HOLD lyrica in setting of ARF. (2) Acute renal failure (ARF): Baseline Cr about 2 (in 02/2020). Now >6 with markedly elevated BUN. Patient w/ volume overload and uremic symptoms. Temporary HD catheter placed (right IJ) by critical care. s/p HD x 2 sessions. To have HD tomorrow or Wednesday. Appreciate nephrology assistance. (3) Acute uremia: confusion/uremic symptoms improved. appreciate nephrology assistance. BMP am. (4) Cellulitis of right toe: MRI w/o signs of osteomyelitis or abscess. WORSE today. STOP levaquin. STOP metronidazole. Switch to IV rocephin with daptomycin (avoid vanco due to morbid obesity and ARF). (5) Mechanical heart valve present: Inserted in 1988, prosthetic aortic valve. INR goal 2.5 to 3.5. INR today 2.1. Daily INR. resume coumadin. (6) Hyperlipidemia: Cont Lopid 600 mg QAM (7) Hypertension: Controlled without meds. Resume metoprolol as BP rises. (8) Anemia: stool heme+. Hb about 8. Repeat CBC am. Very poor candidate for endoscopic eval given clinical status. 04/03 ferritin 120. (9) Cirrhosis: Thought 2nd to CHANG No prior etoh use Ammonia mildly high today. Lactulose x 1 given. Rifaximin started by GI today. repeat ammonia level in 48 hours. HepB, C negative No significant ascites on recent ultrasound (10) Hyponatremia: 2nd to ARF Cortisol wnl. (11) Diabetes: Since 2019 his a1c's have all been <7%. Hypoglycemia finally resolved - was likely due to glipizide. Lantus/novolog (12) Gout: Continue allopurinol prophylaxis (13) GERD (gastroesophageal reflux disease): Continue Protonix daily (14) Morbid obesity with BMI of 40.0-44.9, adult: BMI 45 (15) Wound of foot: RIGHT great toe - local wound care (16) Chronic kidney disease: Previously stage 3 with baseline CrCl 30s/40s. Now with superimposed ARF/LINO requiring HD for symptomatic uremia & volume overload. Appreciate Dr Henrandez's consultation. (17) Hx of AKA (above knee amputation): LEFT (18) Hypoglycemia: see discussion above (19) DVT prophylaxis: resume coumadin extensively updated by phone 04/06/20 prognosis is guarded but did make progress overnight DNR PT, OT will need rehab likely Admission and Anticipated Discharge Date Admission Date: April 03, 2020 Subjective tele with rate controlled a.fib. patient drowsy when I entered room but woke up after I called his name. states "I feel a bit better today." copious stools s/p lactulose x 1 earlier today. breathing improved. appetite fair. very tired still. no complaints of pain in any location. Review of Systems Constitutional: + fatigue and + weakness; no fever and no chills Respiratory: no dyspnea Cardiovascular: no chest pain Gastrointestinal: no abdominal pain Physical Exam Constitutional: + ill appearing, + morbidly obese and + frail appearing; no altered mental status (knew it was 2020; knew he was in hospital) ENMT: external ear and nose normal, oropharynx normal Mouth: + dry oral mucous membranes Respiratory: no respiratory distress Auscultation: + diminished lung sounds (bases); no crackles and no wheezes Cardiovascular: Rate/Rhythm: regular rate and + irregularly irregular Heart Sounds: normal S1 and normal S2; no murmur Vessels: posterior tibial pulses present and dorsalis pedis pulses present; no JVD (resolved ) Extremities: + edema (right leg - 2+ to the thigh) Gastrointestinal (Abdomen): Inspection/Auscultation: + abdomen distended (mild) and normal bowel sounds Percussion/Palpation: abdomen nontender and no hepatosplenomegaly Musculoskeletal: left AKA Skin: + pallor right IJ CVC clean; right great toe - erythema worsening, starting to track proximally towards mid-foot; warm to touch; erythema along MTP and 1st metatarsal (mild) Psychiatric: Orientation: alert, oriented to person, oriented to place and oriented to time Results & Data Results & Data ([facility]) Vital Signs (Past 12 Hours) Vital Signs Temp Pulse Pulse Pulse Resp BP BP 04/07/20 18:41 36.7 C 65 18 111/68 04/07/20 16:23 36.5 C 66 18 100/61 04/07/20 15:00 73 Pulse Ox 04/07/20 18:41 96 04/07/20 16:23 96 04/07/20 15:00 Laboratory Results Laboratory Results - last 24 hr 04/05/20 04/06/20 04/07/20 09:15 23:46 03:55 WBC RBC Hgb Hct MCV MCH MCHC RDW Std Deviation RDW Coeff of Jose Plt Count MPV Absolute Nucleated RBC Nucleated RBC % (auto) PT INR Sodium Potassium Chloride Carbon Dioxide Anion Gap BUN Creatinine Est Cr Clr Drug Dosing Est GFR ( Amer) Est GFR (Non-Af Amer) BUN/Creatinine Ratio Glucose POC Glucose 171 H 155 H Calcium Phosphorus Ammonia Albumin Procalcitonin Cortisol AM Sample Hep B Core IgM Ab NON-REACTIVE 04/07/20 04/07/20 04/07/20 07:04 07:04 07:04 WBC 15.54 H RBC 2.55 L Hgb 8.1 L Hct 26.3 L MCV 103.1 H MCH 31.8 MCHC 30.8 L RDW Std Deviation 76.4 H RDW Coeff of Jose 21.0 H Plt Count 538 H MPV 11.3 H Absolute Nucleated RBC 0.10 H Nucleated RBC % (auto) 0.6 PT INR Sodium 133 L Potassium 4.2 D Chloride 98 Carbon Dioxide 24 Anion Gap 11.0 BUN 69 H Creatinine 4.80 H* D Est Cr Clr Drug Dosing 19.2 Est GFR ( Amer) 12.8 Est GFR (Non-Af Amer) 11.0 BUN/Creatinine Ratio 14.3 Glucose 133 H POC Glucose Calcium 8.9 Phosphorus 5.2 H Ammonia 39.6 H Albumin 2.8 L Procalcitonin Cortisol AM Sample Hep B Core IgM Ab 04/07/20 04/07/20 04/07/20 07:04 07:04 07:04 WBC RBC Hgb Hct MCV MCH MCHC RDW Std Deviation RDW Coeff of Jose Plt Count MPV Absolute Nucleated RBC Nucleated RBC % (auto) PT 20.9 H INR 2.1 H Sodium Potassium Chloride Carbon Dioxide Anion Gap BUN Creatinine Est Cr Clr Drug Dosing Est GFR ( Amer) Est GFR (Non-Af Amer) BUN/Creatinine Ratio Glucose POC Glucose Calcium Phosphorus Ammonia Albumin Procalcitonin 0.29 Cortisol AM Sample 24.18 H Hep B Core IgM Ab 04/07/20 04/07/20 04/07/20 07:31 11:39 16:36 WBC RBC Hgb Hct MCV MCH MCHC RDW Std Deviation RDW Coeff of Jose Plt Count MPV Absolute Nucleated RBC Nucleated RBC % (auto) PT INR Sodium Potassium Chloride Carbon Dioxide Anion Gap BUN Creatinine Est Cr Clr Drug Dosing Est GFR ( Amer) Est GFR (Non-Af Amer) BUN/Creatinine Ratio Glucose POC Glucose 153 H 219 H 184 H Calcium Phosphorus Ammonia Albumin Procalcitonin Cortisol AM Sample Hep B Core IgM Ab 04/07/20 20:12 WBC RBC Hgb Hct MCV MCH MCHC RDW Std Deviation RDW Coeff of Jose Plt Count MPV Absolute Nucleated RBC Nucleated RBC % (auto) PT INR Sodium Potassium Chloride Carbon Dioxide Anion Gap BUN Creatinine Est Cr Clr Drug Dosing Est GFR ( Amer) Est GFR (Non-Af Amer) BUN/Creatinine Ratio Glucose POC Glucose 178 H Calcium Phosphorus Ammonia Albumin Procalcitonin Cortisol AM Sample Hep B Core IgM Ab PG Care Time/CCT Total # of Minutes Spent Total Time Spent with Patient: Total time spent is greater than 50% in coordination of care (as documented) at patient's floor/unit and/or counseling patient: Coding Level of Care Code 28857 Subseq Hosp Care Lvl 3 Diagnoses Acute metabolic encephalopathy G93.41 Acute renal failure (ARF) N17.9 Acute renal failure type: unspecified Acute uremia N19 Cellulitis of right toe L03.031 Mechanical heart valve present Z95.2 Hyperlipidemia E78.5 Hyperlipidemia type: unspecified Hypertension I10 Hypertension type: essential hypertension Anemia D64.9 Anemia type: unspecified type Cirrhosis K74.60; R18.8 Ascites presence: with ascites Hepatic cirrhosis type: unspecified hepatic cirrhosis Hyponatremia E87.1 Diabetes E11.42; Z79.4 Diabetes mellitus complication detail: with polyneuropathy Diabetes mellitus complication status: with neurologic complications 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 control 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: with termite control technician use Diabetes mellitus type: type 2 Gout M10.9 Chronicity: unspecified Gout etiology: unspecified cause Gout site: unspecified site GERD (gastroesophageal reflux disease) K21.9 Esophagitis presence: esophagitis presence not specified Morbid obesity with BMI of 40.0-44.9, adult E66.01; Z68.41 Wound of foot S91.309A Chronic kidney disease N18.30 Chronic kidney disease stage: stage 3 (moderate) Chronic kidney disease stage 3 subtype: unspecified whether 3a or 3b Hx of AKA (above knee amputation) Z89.619 Hypoglycemia E16.2 DVT prophylaxis Z29.9 (1) Diabetes Diabetes mellitus complication detail: with polyneuropathy Diabetes mellitus complication status: with neurologic complications Diabetes mellitus fci insulin use: with fci use Diabetes mellitus type: type 2 Qualified Code(s): E11.42 - Type 2 diabetes mellitus with diabetic polyneuropathy; 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 (2) Gout Chronicity: unspecified Gout etiology: unspecified cause Gout site: unspecified site Qualified Code(s): M10.9 - Gout, unspecified (3) Acute renal failure (ARF) Acute renal failure type: unspecified Qualified Code(s): N17.9 - Acute kidney failure, unspecified (4) Anemia Anemia type: unspecified type Qualified Code(s): D64.9 - Anemia, unspecified (5) Hyperlipidemia Hyperlipidemia type: unspecified Qualified Code(s): E78.5 - Hyperlipidemia, unspecified (6) Cirrhosis Ascites presence: with ascites Hepatic cirrhosis type: unspecified hepatic cirrhosis Qualified Code(s): K74.60 - Unspecified cirrhosis of liver; R18.8 - Other ascites (7) Chronic kidney disease Chronic kidney disease stage: stage 3 (moderate) Chronic kidney disease stage 3 subtype: unspecified whether 3a or 3b Qualified Code(s): N18.30 - Chronic kidney disease, stage 3 unspecified (8) GERD (gastroesophageal reflux disease) Esophagitis presence: esophagitis presence not specified Qualified Code(s): K21.9 - Gastro-esophageal reflux disease without esophagitis (9) Hypertension Hypertension type: essential hypertension Qualified Code(s): I10 - Essential (primary) hypertension
[2020-04-08] MEDS ORDERED: DAPTOmycin 400 MG in SYRINGE 0 ML IV ONE
[2020-04-08] MEDS: cefTRIAXone SODIUM 2,000 MG in DEXTROSE 5% 50 ML IV SCH ×2 (00:24→22:59)
[2020-04-08] MEDS: LEVOTHYROXINE SODIUM 50 MCG TABLET PO SCH (05:23)
[2020-04-08 06:26] LABS: Basophils # (auto) 0.03 K/uL (0-0.2); Basophils % (auto) 0.2 %; Eosinophils # (auto) 0.11 K/uL (0-0.5); Eosinophils % (auto) 0.7 %; Hematocrit (blood only) 26.7 % (42-52); Hemoglobin 8.1 g/dL (14.0-18.0); Immature Granulocytes # (auto) 0.54 K/uL (0.00-0.02); Immature Granulocytes % (auto) 3.7 %; Lymphocytes % (auto) 13.6 %; Mean Corpuscular Hemoglobin 31.3 pg (25-34); Mean Corpuscular Hgb Conc 30.3 g/dL (32-36); Mean Corpuscular Volume 103.1 fL (80-100); Mean Platelet Volume 11.8 fL (7.4-10.4); Monocytes # (auto) 1.49 K/uL (0.11-0.59); Monocytes % (auto) 10.1 %; Neutrophils # (auto) 10.58 K/uL (1.4-6.5); Neutrophils % (auto) 71.7 %; Nucleated RBC # (auto) 0.06 K/uL (0-0); Nucleated RBC % (auto) 0.4 %; Platelet Count 525 K/uL (130-400); RDW Coefficient of Variation 21.2 % (11.5-14.5); RDW Standard Deviation 76.8 fL (36.4-46.3); Red Blood Count 2.59 M/uL (4.7-6.1); White Blood Count 14.75 K/uL (4.8-10.8)
[2020-04-08 06:48] LABS: INR 1.7 (0.9-1.1)
[2020-04-08 07:01] LABS: Anisocytosis Present; Polychromasia 1+; Spherocytes Occasional
[2020-04-08 07:23] LABS: BUN Creatinine Ratio 13.7 (10-20); Calcium 8.5 mg/dl (8.5-10.1); Creatinine Clr Calc Pharmacy 16.2 ml/min; Est GFR (African American) 10.5; Est GFR (Non-African American) 9.1
[2020-04-08] MEDS: allopurinoL 300 MG TAB PO SCH (08:39)
[2020-04-08] MEDS: PANTOprazole 40 MG TAB PO SCH (08:39)
[2020-04-08] MEDS: ASPIRIN 81 MG ECTAB PO SCH (08:39)
[2020-04-08] MEDS: rifAXIMin 550 MG TABLET PO SCH ×2 (08:40→21:09)
[2020-04-08] MEDS: gemfibroziL 600 MG TAB PO SCH (08:40)
[2020-04-08] MEDS: INSULIN ASPART 100 UNITS/ML 3 ML PEN SC SCH ×4 (08:44→21:09)
--- NOTE | 2020-04-08 08:46 | Gastroenterology Progress Note ---
Date of Service April 08, 2020 Assessment & Plan (1) Cirrhosis: Patient with history of cirrhosis, likely etiology CHANG. Ammonia level not resulted this morning, elevated yesterday. Continue ammonia and xifaxin. Please refer to supervising physician addendum for further recommendations. Admission and Anticipated Discharge Date Admission Date: April 03, 2020 Supervising Physician Co-Signing Physician Notes I have seen and examined the patient. I agree with note above by DANYELL Alcantar except as noted below. HPI f/u Cirrhosis and elevated ammonia. Pt seen by me in dialysis and is alert. Has some stomach upset but no abd pain. PE Abdomen pos bs, soft, no guarding nor rebound A/P elevated ammonia---36.5 today. Continue Xifaxan in case this is contributing to mental status cirrhosis--likeley from CHANG--needs f/u as outpt Subjective Patient awake and alert to person and place this morning. Mental status waxes and wanes. Completed eating his breakfast tray and reports tolerated well. Denies abdominal pain, nausea, or vomiting. States no bowel movement today but multiple yesterday. Nursing confirms multiple loose to liquid bowel movements yesterday. Review of Systems Review of Systems: Per HPI, patient with intermittent confusion Physical Exam Constitutional: + morbidly obese Neck: trachea midline, no thyromegaly normal visual inspection Respiratory: normal respiratory effort; no respiratory distress and no labored breathing Cardiovascular: Rate/Rhythm: regular rate and regular rhythm Gastrointestinal (Abdomen): Inspection/Auscultation: abdomen normal to inspection and normal bowel sounds Percussion/Palpation: abdomen soft; abdomen nontender Musculoskeletal: Extremities: no cyanosis and no clubbing Psychiatric: Orientation: alert and oriented to person Results & Data ([facility]) Vital Signs (Past 12 Hours) Vital Signs Temp Pulse Pulse Pulse Resp BP BP 04/08/20 07:50 36.4 C L 84 18 121/73 04/08/20 03:00 36.4 C L 81 20 100/64 04/08/20 01:22 81 04/07/20 23:00 37 C 88 20 101/71 Pulse Ox 04/08/20 07:50 93 04/08/20 03:00 94 04/08/20 01:22 04/07/20 23:00 96 Laboratory Results - last 24 hr 04/07/20 04/07/20 04/07/20 07:04 11:39 16:36 WBC RBC Hgb Hct MCV MCH MCHC RDW Std Deviation RDW Coeff of Jose Plt Count MPV Immature Gran % (Auto) Neut % (Auto) Lymph % (Auto) [place] % (Auto) Eos % (Auto) Baso % (Auto) Neut # (Auto) Lymph # (Auto) [place] # (Auto) Eos # (Auto) Baso # (Auto) Immature Gran # (Auto) Absolute Nucleated RBC Nucleated RBC % (auto) Polychromasia Anisocytosis Spherocytes PT INR Sodium Potassium Chloride Carbon Dioxide Anion Gap BUN Creatinine Est Cr Clr Drug Dosing Est GFR ( Amer) Est GFR (Non-Af Amer) BUN/Creatinine Ratio Glucose POC Glucose 219 H 184 H Calcium Cortisol AM Sample 24.18 H 04/07/20 04/08/20 04/08/20 20:12 05:28 05:28 WBC 14.75 H RBC 2.59 L Hgb 8.1 L Hct 26.7 L MCV 103.1 H MCH 31.3 MCHC 30.3 L RDW Std Deviation 76.8 H RDW Coeff of Jose 21.2 H Plt Count 525 H MPV 11.8 H Immature Gran % (Auto) 3.7 Neut % (Auto) 71.7 Lymph % (Auto) 13.6 [place] % (Auto) 10.1 Eos % (Auto) 0.7 Baso % (Auto) 0.2 Neut # (Auto) 10.58 H Lymph # (Auto) 2.00 [place] # (Auto) 1.49 H Eos # (Auto) 0.11 Baso # (Auto) 0.03 Immature Gran # (Auto) 0.54 H Absolute Nucleated RBC 0.06 H Nucleated RBC % (auto) 0.4 Polychromasia 1+ Anisocytosis Present Spherocytes Occasional PT 17.0 H INR 1.7 H Sodium Potassium Chloride Carbon Dioxide Anion Gap BUN Creatinine Est Cr Clr Drug Dosing Est GFR ( Amer) Est GFR (Non-Af Amer) BUN/Creatinine Ratio Glucose POC Glucose 178 H Calcium Cortisol AM Sample 04/08/20 04/08/20 05:28 07:42 WBC RBC Hgb Hct MCV MCH MCHC RDW Std Deviation RDW Coeff of Jose Plt Count MPV Immature Gran % (Auto) Neut % (Auto) Lymph % (Auto) [place] % (Auto) Eos % (Auto) Baso % (Auto) Neut # (Auto) Lymph # (Auto) [place] # (Auto) Eos # (Auto) Baso # (Auto) Immature Gran # (Auto) Absolute Nucleated RBC Nucleated RBC % (auto) Polychromasia Anisocytosis Spherocytes PT INR Sodium 133 L Potassium 4.0 Chloride 98 Carbon Dioxide 25 Anion Gap 10.0 BUN 76 H Creatinine 5.64 H* D Est Cr Clr Drug Dosing 16.2 Est GFR ( Amer) 10.5 Est GFR (Non-Af Amer) 9.1 BUN/Creatinine Ratio 13.7 Glucose 114 H POC Glucose 107 H Calcium 8.5 Cortisol AM Sample (1) Cirrhosis Ascites presence: with ascites Hepatic cirrhosis type: unspecified hepatic cirrhosis Qualified Code(s): K74.60 - Unspecified cirrhosis of liver; R18.8 - Other ascites
[2020-04-08] MEDS ORDERED: SODIUM CHLORIDE 0.9% 1000ML 1,000 ML IV PRN (08:52)
--- NOTE | 2020-04-08 10:28 | Nephrology Progress Note ---
Date of Service April 08, 2020 Assessment & Plan (1) Acute renal failure (ARF): * LINO - ddx includes type I HRS, ATN related to RLE cellulitis/myositis * Renal US 04/04/20: R 10.3cm, L 12.1cm. No hydronephrosis, calculi or mass. * Progressive renal dysfunction and azotemia despite IV hydration, albumin, midodrine and octreotide administration. Therapy has been stopped. * Non-tunneled HD catheter placed yesterday (04/05/2019). * Completed 1st HD treatment 04/05/2019. * Orders for HD today reviewed with dialysis nurse. Plan 3 hours for UF ~2 L. (2) Chronic kidney disease: * Baseline Cr 2.0 (3) Urinary tract infection: * Treated for Enterococcus Faecalis UTI 02/22 * Follow up urine culture results are negative (4) Wound of foot: * Partial avulsion of R great toe nail * 04/04/20 MRI R foot reveals cellulitis/myositis (5) Cirrhosis: * GI consultation reviewed. Admission and Anticipated Discharge Date Admission Date: April 03, 2020 Subjective No acute events overnight. Remains very tired but more awake this AM. Denies pain. No fevers or chills. Denies shortness of breath. Review of Systems Review of Systems: All systems reviewed & are unremarkable except as noted in HPI & below Physical Exam Constitutional: well developed and + obese; no acute distress Eyes: no scleral abnormality and no corneal abnormality ENMT: Mouth: no oral mucosal abnormality and oral mucous membranes not dry Neck: normal visual inspection and trachea midline Respiratory: normal respiratory effort Auscultation: lungs clear to auscultation bilaterally Cardiovascular: Rate/Rhythm: regular rate Heart Sounds: normal S1 and normal S2 Extremities: + edema Gastrointestinal (Abdomen): Inspection/Auscultation: + abdomen distended Percussion/Palpation: abdomen nontender Musculoskeletal: Extremities: no cyanosis and no clubbing Skin: normal turgor; no lesions Neurologic: Motor/Sensory: no tremor and no asterixis Psychiatric: Orientation: alert and oriented x 3 Results & Data ([facility]) Vital Signs (Past 12 Hours) Vital Signs Temp Pulse Pulse Pulse Resp BP BP 04/08/20 07:50 36.4 C L 84 18 121/73 04/08/20 03:00 36.4 C L 81 20 100/64 04/08/20 01:22 81 04/07/20 23:00 37 C 88 20 101/71 Pulse Ox 04/08/20 07:50 93 04/08/20 03:00 94 04/08/20 01:22 04/07/20 23:00 96 Laboratory Results Laboratory Results - last 24 hr 04/07/20 04/07/20 04/07/20 11:39 16:36 20:12 WBC RBC Hgb Hct MCV MCH MCHC RDW Std Deviation RDW Coeff of Jose Plt Count MPV Immature Gran % (Auto) Neut % (Auto) Lymph % (Auto) [place] % (Auto) Eos % (Auto) Baso % (Auto) Neut # (Auto) Lymph # (Auto) [place] # (Auto) Eos # (Auto) Baso # (Auto) Immature Gran # (Auto) Absolute Nucleated RBC Nucleated RBC % (auto) Polychromasia Anisocytosis Spherocytes PT INR Sodium Potassium Chloride Carbon Dioxide Anion Gap BUN Creatinine Est Cr Clr Drug Dosing Est GFR ( Amer) Est GFR (Non-Af Amer) BUN/Creatinine Ratio Glucose POC Glucose 219 H 184 H 178 H Calcium Ammonia 04/08/20 04/08/20 04/08/20 05:28 05:28 05:28 WBC 14.75 H RBC 2.59 L Hgb 8.1 L Hct 26.7 L MCV 103.1 H MCH 31.3 MCHC 30.3 L RDW Std Deviation 76.8 H RDW Coeff of Jose 21.2 H Plt Count 525 H MPV 11.8 H Immature Gran % (Auto) 3.7 Neut % (Auto) 71.7 Lymph % (Auto) 13.6 [place] % (Auto) 10.1 Eos % (Auto) 0.7 Baso % (Auto) 0.2 Neut # (Auto) 10.58 H Lymph # (Auto) 2.00 [place] # (Auto) 1.49 H Eos # (Auto) 0.11 Baso # (Auto) 0.03 Immature Gran # (Auto) 0.54 H Absolute Nucleated RBC 0.06 H Nucleated RBC % (auto) 0.4 Polychromasia 1+ Anisocytosis Present Spherocytes Occasional PT 17.0 H INR 1.7 H Sodium 133 L Potassium 4.0 Chloride 98 Carbon Dioxide 25 Anion Gap 10.0 BUN 76 H Creatinine 5.64 H* D Est Cr Clr Drug Dosing 16.2 Est GFR ( Amer) 10.5 Est GFR (Non-Af Amer) 9.1 BUN/Creatinine Ratio 13.7 Glucose 114 H POC Glucose Calcium 8.5 Ammonia 04/08/20 04/08/20 07:42 09:03 WBC RBC Hgb Hct MCV MCH MCHC RDW Std Deviation RDW Coeff of Jose Plt Count MPV Immature Gran % (Auto) Neut % (Auto) Lymph % (Auto) [place] % (Auto) Eos % (Auto) Baso % (Auto) Neut # (Auto) Lymph # (Auto) [place] # (Auto) Eos # (Auto) Baso # (Auto) Immature Gran # (Auto) Absolute Nucleated RBC Nucleated RBC % (auto) Polychromasia Anisocytosis Spherocytes PT INR Sodium Potassium Chloride Carbon Dioxide Anion Gap BUN Creatinine Est Cr Clr Drug Dosing Est GFR ( Amer) Est GFR (Non-Af Amer) BUN/Creatinine Ratio Glucose POC Glucose 107 H Calcium Ammonia 36.5 H PG Care Time/CCT Total # of Minutes Spent Total Time Spent with Patient: Total time spent is greater than 50% in coordination of care (as documented) at patient's floor/unit and/or counseling patient: Coding Level of Care Code 59377 Subseq Hosp Care Lvl 3 Diagnoses Acute renal failure (ARF) N17.9 Acute renal failure type: unspecified Chronic kidney disease N18.30 Chronic kidney disease stage: stage 3 (moderate) Chronic kidney disease stage 3 subtype: unspecified whether 3a or 3b Urinary tract infection N30.01 Hematuria presence: with hematuria Urinary tract infection type: acute cystitis Wound of foot S91.309A Cirrhosis K74.60; R18.8 Hepatic cirrhosis type: unspecified hepatic cirrhosis Ascites presence: with ascites (1) Acute renal failure (ARF) Acute renal failure type: unspecified Qualified Code(s): N17.9 - Acute kidney failure, unspecified (2) Chronic kidney disease Chronic kidney disease stage: stage 3 (moderate) Chronic kidney disease stage 3 subtype: unspecified whether 3a or 3b Qualified Code(s): N18.30 - Chronic kidney disease, stage 3 unspecified (3) Urinary tract infection Hematuria presence: with hematuria Urinary tract infection type: acute cystitis Qualified Code(s): N30.01 - Acute cystitis with hematuria (4) Cirrhosis Hepatic cirrhosis type: unspecified hepatic cirrhosis Ascites presence: with ascites Qualified Code(s): K74.60 - Unspecified cirrhosis of liver; R18.8 - Other ascites
[2020-04-08] MEDS: ONDANSETRON INJ 2 MG/ML 2 ML VIAL IV PRN (15:27)
[2020-04-08] MEDS: WARFARIN SOD 7.5 MG TAB PO SCH (17:45)
--- NOTE | 2020-04-08 19:52 | Hospitalist Progress Note ---
Date of Service April 08, 2020 Assessment & Plan (1) Acute metabolic encephalopathy: IMPROVING. Likely 2nd uremia and mild hepatic encephalopathy along with right foot cellulitis . s/p Lactulose x 1 given followed by rifaximin BID. Continue HD for symptomatic uremia/ARF. HOLD lyrica in setting of ARF. Continue abx for foot infection. (2) Acute renal failure (ARF): Baseline Cr about 2 (in 02/2020). Now >6 with markedly elevated BUN. Patient w/ volume overload and uremic symptoms. Temporary HD catheter placed (right IJ) by critical care. s/p HD x 3 sessions including today. Appreciate nephrology assistance. (3) Acute uremia: confusion/uremic symptoms improved. appreciate nephrology assistance. BMP am. (4) Cellulitis of right toe: MRI w/o signs of osteomyelitis or abscess. Cont rocephin with daptomycin (avoid vanco due to morbid obesity and ARF). IMPROVED today. (5) Mechanical heart valve present: Inserted in 1988, prosthetic aortic valve. INR goal 2.5 to 3.5. INR today 1.7. Daily INR. resumed coumadin but increased to 7.5mg daily starting today. (6) Hyperlipidemia: Cont Lopid 600 mg QAM (7) Hypertension: Controlled without meds. Resume metoprolol as BP rises. (8) Anemia: stool heme+. Hb about 8. Repeat CBC am. Very poor candidate for endoscopic eval given clinical status. 04/03 ferritin 120. (9) Cirrhosis: Thought 2nd to CHANG No prior etoh use s/p lactulose x 1 followed by Rifaximin -- started by GI today. repeat ammonia level in AM. HepB, C negative No significant ascites on recent ultrasound (10) Hyponatremia: 2nd to ARF Cortisol wnl. improving with HD sessions. (11) Diabetes: Since 2019 his a1c's have all been <7%. Hypoglycemia finally resolved - was likely due to glipizide. Lantus/novolog (12) Gout: Continue allopurinol prophylaxis (13) GERD (gastroesophageal reflux disease): Continue Protonix daily (14) Morbid obesity with BMI of 40.0-44.9, adult: BMI 45 (15) Wound of foot: RIGHT great toe/2nd toe webspace along with trauma to right great toe - local wound care (16) Chronic kidney disease: Previously stage 3 with baseline CrCl 30s/40s. Now with superimposed ARF/LINO requiring HD for symptomatic uremia & volume overload. Appreciate Dr Hernandez's consultation. (17) Hx of AKA (above knee amputation): LEFT (18) Hypoglycemia: see discussion above (19) DVT prophylaxis: coumadin extensively updated by phone 04/06/20 and 04/08/20 DNR PT, OT will need rehab likely Admission and Anticipated Discharge Date Admission Date: April 03, 2020 Subjective tele - a.fib, rates controlled saw patient post-HD today he was sleepy but able to converse denied any pain in any location feels "a bit better" dyspnea improved today still quite tired less shaky eating fair Review of Systems Constitutional: no fever Respiratory: + dyspnea; no cough Cardiovascular: no chest pain Gastrointestinal: no abdominal pain, no nausea, no vomiting and no diarrhea/loose stools Physical Exam Constitutional: + ill appearing, + morbidly obese and + frail appearing; no altered mental status (again knew it was 2020; knew he was in hospital) ENMT: external ear and nose normal, oropharynx normal Respiratory: no respiratory distress Auscultation: + diminished lung sounds (bases); no crackles and no wheezes Cardiovascular: Rate/Rhythm: regular rate and + irregularly irregular Heart Sounds: normal S1 and normal S2; no murmur Vessels: posterior tibial pulses present and dorsalis pedis pulses present; no JVD Extremities: + edema (right leg - 2+ to the thigh) Gastrointestinal (Abdomen): Inspection/Auscultation: normal bowel sounds; abdomen not distended Percussion/Palpation: abdomen soft; abdomen nontender and no hepatosplenomegaly Musculoskeletal: left AKA Skin: + pallor right IJ HD catheter clean/dry; right great toe cellulitis IMPROVED today; less erythema, less swelling, less warmth; ulcer present in between first/2nd toes unchanged; mild rash on first metatarasal region Psychiatric: Orientation: alert, oriented to person, oriented to place and oriented to time Results & Data Results & Data ([facility]) Vital Signs (Past 12 Hours) Vital Signs Temp Pulse Pulse Pulse Resp BP BP 04/08/20 19:34 36.3 C L 92 H 20 108/65 04/08/20 17:14 164/61 H 04/08/20 17:00 37 C 95 H 04/08/20 16:20 88 101/57 L 04/08/20 16:00 79 108/60 04/08/20 15:40 97 H 104/60 04/08/20 15:20 90 107/62 04/08/20 15:00 93 H 115/60 04/08/20 14:40 94 H 94/59 L 04/08/20 14:20 94 H 114/63 04/08/20 14:00 92 H 114/63 04/08/20 13:40 82 123/70 04/08/20 13:33 36.9 C 82 04/08/20 10:59 36.7 C 91 H 20 04/08/20 08:00 80 BP Pulse Ox 04/08/20 19:34 94 04/08/20 17:14 04/08/20 17:00 113/65 04/08/20 16:20 04/08/20 16:00 04/08/20 15:40 04/08/20 15:20 04/08/20 15:00 04/08/20 14:40 04/08/20 14:20 04/08/20 14:00 04/08/20 13:40 04/08/20 13:33 04/08/20 10:59 124/72 96 04/08/20 08:00 Laboratory Results Laboratory Results - last 24 hr 04/07/20 04/08/20 04/08/20 20:12 05:28 05:28 WBC 14.75 H RBC 2.59 L Hgb 8.1 L Hct 26.7 L MCV 103.1 H MCH 31.3 MCHC 30.3 L RDW Std Deviation 76.8 H RDW Coeff of Jose 21.2 H Plt Count 525 H MPV 11.8 H Immature Gran % (Auto) 3.7 Neut % (Auto) 71.7 Lymph % (Auto) 13.6 [place] % (Auto) 10.1 Eos % (Auto) 0.7 Baso % (Auto) 0.2 Neut # (Auto) 10.58 H Lymph # (Auto) 2.00 [place] # (Auto) 1.49 H Eos # (Auto) 0.11 Baso # (Auto) 0.03 Immature Gran # (Auto) 0.54 H Absolute Nucleated RBC 0.06 H Nucleated RBC % (auto) 0.4 Polychromasia 1+ Anisocytosis Present Spherocytes Occasional PT 17.0 H INR 1.7 H Sodium Potassium Chloride Carbon Dioxide Anion Gap BUN Creatinine Est Cr Clr Drug Dosing Est GFR ( Amer) Est GFR (Non-Af Amer) BUN/Creatinine Ratio Glucose POC Glucose 178 H Calcium Ammonia 04/08/20 04/08/20 04/08/20 05:28 07:42 09:03 WBC RBC Hgb Hct MCV MCH MCHC RDW Std Deviation RDW Coeff of Jose Plt Count MPV Immature Gran % (Auto) Neut % (Auto) Lymph % (Auto) [place] % (Auto) Eos % (Auto) Baso % (Auto) Neut # (Auto) Lymph # (Auto) [place] # (Auto) Eos # (Auto) Baso # (Auto) Immature Gran # (Auto) Absolute Nucleated RBC Nucleated RBC % (auto) Polychromasia Anisocytosis Spherocytes PT INR Sodium 133 L Potassium 4.0 Chloride 98 Carbon Dioxide 25 Anion Gap 10.0 BUN 76 H Creatinine 5.64 H* D Est Cr Clr Drug Dosing 16.2 Est GFR ( Amer) 10.5 Est GFR (Non-Af Amer) 9.1 BUN/Creatinine Ratio 13.7 Glucose 114 H POC Glucose 107 H Calcium 8.5 Ammonia 36.5 H 04/08/20 04/08/20 11:25 16:29 WBC RBC Hgb Hct MCV MCH MCHC RDW Std Deviation RDW Coeff of Jose Plt Count MPV Immature Gran % (Auto) Neut % (Auto) Lymph % (Auto) [place] % (Auto) Eos % (Auto) Baso % (Auto) Neut # (Auto) Lymph # (Auto) [place] # (Auto) Eos # (Auto) Baso # (Auto) Immature Gran # (Auto) Absolute Nucleated RBC Nucleated RBC % (auto) Polychromasia Anisocytosis Spherocytes PT INR Sodium Potassium Chloride Carbon Dioxide Anion Gap BUN Creatinine Est Cr Clr Drug Dosing Est GFR ( Amer) Est GFR (Non-Af Amer) BUN/Creatinine Ratio Glucose POC Glucose 149 H 195 H Calcium Ammonia PG Care Time/CCT Total # of Minutes Spent Total Time Spent with Patient: Total time spent is greater than 50% in coordination of care (as documented) at patient's floor/unit and/or counseling patient: Coding Level of Care Code 43560 Subseq Hosp Care Lvl 3 Diagnoses Acute metabolic encephalopathy G93.41 Acute renal failure (ARF) N17.9 Acute renal failure type: unspecified Acute uremia N19 Cellulitis of right toe L03.031 Mechanical heart valve present Z95.2 Hyperlipidemia E78.5 Hyperlipidemia type: unspecified Hypertension I10 Hypertension type: essential hypertension Anemia D64.9 Anemia type: unspecified type Cirrhosis K74.60; R18.8 Ascites presence: with ascites Hepatic cirrhosis type: unspecified hepatic cirrhosis Hyponatremia E87.1 Diabetes E11.42; Z79.4 Diabetes mellitus complication detail: with polyneuropathy Diabetes mellitus complication status: with neurologic complications Diabetes mellitus terminal press operator insulin use: with terminal press operator use Diabetes mellitus type: type 2 Gout M10.9 Chronicity: unspecified Gout etiology: unspecified cause Gout site: unspecified site GERD (gastroesophageal reflux disease) K21.9 Esophagitis presence: esophagitis presence not specified Morbid obesity with BMI of 40.0-44.9, adult E66.01; Z68.41 Wound of foot S91.309A Chronic kidney disease N18.30 Chronic kidney disease stage: stage 3 (moderate) Chronic kidney disease stage 3 subtype: unspecified whether 3a or 3b Hx of AKA (above knee amputation) Z89.619 Hypoglycemia E16.2 DVT prophylaxis Z29.9 (1) Diabetes Diabetes mellitus complication detail: with polyneuropathy Diabetes mellitus complication status: with neurologic complications Diabetes mellitus care home insulin use: with care home use Diabetes mellitus type: type 2 Qualified Code(s): E11.42 - Type 2 diabetes mellitus with diabetic polyneuropathy; Z79.4 - long term (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 insulin (2) Gout Chronicity: unspecified Gout etiology: unspecified cause Gout site: unspecified site Qualified Code(s): M10.9 - Gout, unspecified (3) Acute renal failure (ARF) Acute renal failure type: unspecified Qualified Code(s): N17.9 - Acute kidney failure, unspecified (4) Anemia Anemia type: unspecified type Qualified Code(s): D64.9 - Anemia, unspecified (5) Hyperlipidemia Hyperlipidemia type: unspecified Qualified Code(s): E78.5 - Hyperlipidemia, unspecified (6) Cirrhosis Ascites presence: with ascites Hepatic cirrhosis type: unspecified hepatic cirrhosis Qualified Code(s): K74.60 - Unspecified cirrhosis of liver; R18.8 - Other ascites (7) Chronic kidney disease Chronic kidney disease stage: stage 3 (moderate) Chronic kidney disease stage 3 subtype: unspecified whether 3a or 3b Qualified Code(s): N18.30 - Chronic kidney disease, stage 3 unspecified (8) GERD (gastroesophageal reflux disease) Esophagitis presence: esophagitis presence not specified Qualified Code(s): K21.9 - Gastro-esophageal reflux disease without esophagitis (9) Hypertension Hypertension type: essential hypertension Qualified Code(s): I10 - Essential (primary) hypertension
[2020-04-08] MEDS: METOPROLOL TARTRATE 25 MG TAB PO SCH (21:09)
[2020-04-08] MEDS: INSULIN GLARGINE SOLOSTAR 100 UNITS/ML 3 ML PEN SQ SCH (21:10)
[2020-04-08] MEDS: ACETAMINOPHEN 325 MG TAB PO PRN (21:13)
[2020-04-08] MEDS ORDERED: MELATONIN 3 MG TAB PO PRN (22:37)
[2020-04-09 05:35] LABS: Basophils # (auto) 0.01 K/uL (0-0.2); Basophils % (auto) 0.1 %; Eosinophils # (auto) 0.07 K/uL (0-0.5); Eosinophils % (auto) 0.5 %; Hematocrit (blood only) 27.5 % (42-52); Hemoglobin 8.3 g/dL (14.0-18.0); Immature Granulocytes # (auto) 0.46 K/uL (0.00-0.02); Immature Granulocytes % (auto) 3.5 %; Lymphocytes # (auto) 1.86 K/uL (1.2-3.4); Lymphocytes % (auto) 14.4 %; Mean Corpuscular Hemoglobin 31.3 pg (25-34); Mean Corpuscular Hgb Conc 30.2 g/dL (32-36); Mean Corpuscular Volume 103.8 fL (80-100); Mean Platelet Volume 11.2 fL (7.4-10.4); Monocytes # (auto) 1.04 K/uL (0.11-0.59); Neutrophils # (auto) 9.52 K/uL (1.4-6.5); Neutrophils % (auto) 73.5 %; Nucleated RBC # (auto) 0.03 K/uL (0-0); Nucleated RBC % (auto) 0.2 %; Platelet Count 498 K/uL (130-400); RDW Coefficient of Variation 21.7 % (11.5-14.5); RDW Standard Deviation 79.7 fL (36.4-46.3); Red Blood Count 2.65 M/uL (4.7-6.1); White Blood Count 12.96 K/uL (4.8-10.8)
[2020-04-09] MEDS: LEVOTHYROXINE SODIUM 50 MCG TABLET PO SCH (05:54)
[2020-04-09 06:11] LABS: Albumin Globulin Ratio 0.6 (0.9-2); Albumin Level 2.7 gm/dl (3.4-5.0); BUN Creatinine Ratio 11.2 (10-20); Calcium 8.5 mg/dl (8.5-10.1); Creatinine Clr Calc Pharmacy 20.6 ml/min; Est GFR (Non-African American) 12.1; Globulin 4.4 gm/dl (2.5-4.0); Total Protein 7.1 gm/dl (6.4-8.2)
[2020-04-09 06:25] LABS: INR 1.7 (0.9-1.1); Prothrombin Time 17.5 Seconds (9.0-12.0)
[2020-04-09 06:48] LABS: Anisocytosis Present; Giant Platelets 1+; Polychromasia 2+
--- NOTE | 2020-04-09 08:29 | Gastroenterology Progress Note ---
Date of Service April 09, 2020 Assessment & Plan (1) Cirrhosis: Patient with history of cirrhosis, likely etiology CHANG. Confusion improved today, received dialysis yesterday. Ammonia level 25.0 this morning, down from 36.5 yesterday. Continue lactulose and Xifaxan. Please refer to supervising physician addendum for further recommendations. Admission and Anticipated Discharge Date Admission Date: April 03, 2020 Supervising Physician Co-Signing Physician Notes I have seen and examined the patient. I agree with note above by DANYELL Alcantar except as noted below. HPI Pt awake and alert. Denies abd pain. PE Abdomen pos bs, soft, no guarding nor rebound A/P elevated ammonia---normal at 25 today mental status waxes and wanes---uremia can contribute. See how he does when BUN improved. Subjective Patient awake and alert to person and place this morning. Mental status waxes a nd wanes. Completed eating his breakfast tray and reports tolerated well. Denies abdominal pain, upset, nausea, or vomiting. States no bowel movement yet today but multiple yesterday. Review of Systems Review of Systems: Per HPI, patient with intermittent confusion Physical Exam Constitutional: + morbidly obese Neck: trachea midline, no thyromegaly normal visual inspection Respiratory: normal respiratory effort; no respiratory distress and no labored breathing Cardiovascular: Rate/Rhythm: regular rate and regular rhythm Gastrointestinal (Abdomen): Inspection/Auscultation: abdomen normal to inspection and normal bowel sounds Percussion/Palpation: abdomen soft; abdomen nontender, no guarding and abdomen not rigid Musculoskeletal: Extremities: no cyanosis and no clubbing Psychiatric: Orientation: alert and oriented to person Results & Data ([facility]) Vital Signs (Past 12 Hours) Vital Signs Temp Pulse Pulse Pulse Resp BP BP 04/09/20 08:12 36.4 C L 72 16 154/51 H 04/09/20 03:51 36.4 C L 90 20 111/69 04/09/20 00:03 86 04/08/20 22:05 36.3 C L 91 H 18 113/69 Pulse Ox 04/09/20 08:12 93 04/09/20 03:51 94 04/09/20 00:03 04/08/20 22:05 96 Laboratory Results - last 24 hr 04/08/20 04/08/20 04/08/20 09:03 11:25 16:29 WBC RBC Hgb Hct MCV MCH MCHC RDW Std Deviation RDW Coeff of Jose Plt Count MPV Immature Gran % (Auto) Neut % (Auto) Lymph % (Auto) [place] % (Auto) Eos % (Auto) Baso % (Auto) Neut # (Auto) Lymph # (Auto) [place] # (Auto) Eos # (Auto) Baso # (Auto) Immature Gran # (Auto) Absolute Nucleated RBC Nucleated RBC % (auto) Giant Platelets Polychromasia Anisocytosis PT INR Sodium Potassium Chloride Carbon Dioxide Anion Gap BUN Creatinine Est Cr Clr Drug Dosing Est GFR ( Amer) Est GFR (Non-Af Amer) BUN/Creatinine Ratio Glucose POC Glucose 149 H 195 H Calcium Total Bilirubin AST ALT Alkaline Phosphatase Ammonia 36.5 H Total Protein Albumin Globulin Albumin/Globulin Ratio 04/08/20 04/09/20 04/09/20 20:07 05:21 05:21 WBC 12.96 H RBC 2.65 L Hgb 8.3 L Hct 27.5 L MCV 103.8 H MCH 31.3 MCHC 30.2 L RDW Std Deviation 79.7 H RDW Coeff of Jose 21.7 H Plt Count 498 H MPV 11.2 H Immature Gran % (Auto) 3.5 Neut % (Auto) 73.5 Lymph % (Auto) 14.4 [place] % (Auto) 8.0 Eos % (Auto) 0.5 Baso % (Auto) 0.1 Neut # (Auto) 9.52 H Lymph # (Auto) 1.86 [place] # (Auto) 1.04 H Eos # (Auto) 0.07 Baso # (Auto) 0.01 Immature Gran # (Auto) 0.46 H Absolute Nucleated RBC 0.03 H Nucleated RBC % (auto) 0.2 Giant Platelets 1+ Polychromasia 2+ Anisocytosis Present PT INR Sodium 135 L Potassium 4.0 Chloride 102 Carbon Dioxide 26 Anion Gap 7.0 BUN 50 H Creatinine 4.44 H D Est Cr Clr Drug Dosing 20.6 Est GFR ( Amer) 14.0 Est GFR (Non-Af Amer) 12.1 BUN/Creatinine Ratio 11.2 Glucose 84 POC Glucose 140 H Calcium 8.5 Total Bilirubin 2.0 H AST 24 ALT 12 Alkaline Phosphatase 117 Ammonia Total Protein 7.1 Albumin 2.7 L Globulin 4.4 H Albumin/Globulin Ratio 0.6 L 04/09/20 04/09/20 04/09/20 05:21 05:25 07:21 WBC RBC Hgb Hct MCV MCH MCHC RDW Std Deviation RDW Coeff of Jose Plt Count MPV Immature Gran % (Auto) Neut % (Auto) Lymph % (Auto) [place] % (Auto) Eos % (Auto) Baso % (Auto) Neut # (Auto) Lymph # (Auto) [place] # (Auto) Eos # (Auto) Baso # (Auto) Immature Gran # (Auto) Absolute Nucleated RBC Nucleated RBC % (auto) Giant Platelets Polychromasia Anisocytosis PT 17.5 H INR 1.7 H Sodium Potassium Chloride Carbon Dioxide Anion Gap BUN Creatinine Est Cr Clr Drug Dosing Est GFR ( Amer) Est GFR (Non-Af Amer) BUN/Creatinine Ratio Glucose POC Glucose 87 Calcium Total Bilirubin AST ALT Alkaline Phosphatase Ammonia 25.0 Total Protein Albumin Globulin Albumin/Globulin Ratio (1) Cirrhosis Ascites presence: with ascites Hepatic cirrhosis type: unspecified hepatic cirrhosis Qualified Code(s): K74.60 - Unspecified cirrhosis of liver; R18.8 - Other ascites
[2020-04-09] MEDS: PANTOprazole 40 MG TAB PO SCH (08:39)
[2020-04-09] MEDS: allopurinoL 300 MG TAB PO SCH (08:39)
[2020-04-09] MEDS: METOPROLOL TARTRATE 25 MG TAB PO SCH ×2 (08:39→21:20)
[2020-04-09] MEDS: rifAXIMin 550 MG TABLET PO SCH ×2 (08:40→21:20)
[2020-04-09] MEDS: ASPIRIN 81 MG ECTAB PO SCH (08:40)
[2020-04-09] MEDS: gemfibroziL 600 MG TAB PO SCH (08:40)
[2020-04-09] MEDS: INSULIN ASPART 100 UNITS/ML 3 ML PEN SC SCH ×4 (08:42→21:19)
--- NOTE | 2020-04-09 09:51 | Nephrology Progress Note ---
Date of Service April 09, 2020 Assessment & Plan (1) Acute renal failure (ARF): * LINO - ddx includes type I HRS, ATN related to RLE cellulitis/myositis * Renal US 04/04/20: R 10.3cm, L 12.1cm. No hydronephrosis, calculi or mass. * Progressive renal dysfunction and azotemia despite IV hydration, albumin, midodrine and octreotide administration. Therapy has been stopped. * Non-tunneled HD catheter placed 04/05/2019 * Completed 1st HD treatment 04/05/2019 * 3rd treatment completed yesterday without complications * Anticipate next HD tomorrow * I discussed permcath placement with vascular surgery this AM., consultation placed (2) Chronic kidney disease: * Baseline Cr 2.0 (3) Wound of foot: * Partial avulsion of R great toe nail * 04/04/20 MRI R foot reveals cellulitis/myositis (4) Cirrhosis: * GI consultation reviewed. (5) Depression: * Psychiatric consultation requested * I discussed concerns with the bedside nurse * Patient's contacted Admission and Anticipated Discharge Date Admission Date: April 03, 2020 Subjective No acute events overnight. Ross was very despondent this AM. Tolerated HD well yesterday. No complications with treatment. Ross told me this AM that he is "done with it all." He initially told me that he felt like he couldn't take any more and that he was having thoughts of ending it all. I asked him if he honestly believed that he could harm himself and he told me that he is at that point but has not specific plan or idea of how to do it. He said that if he had a gun he thinks he could pull the trigger. I asked him if he had discussed this with his and he told me that part of the problem was difficulty communicating with her over the phone. He expressed frustration and eventually was agreeable to planning permcath placement with the understanding that this would be one step closer to discharge home. Ultimately, he stated that he just wants to get out of the hospital. When I asked him if he wanted to stop dialysis, he told me that he'll do whatever he has to do. Review of Systems Review of Systems: All systems reviewed & are unremarkable except as noted in HPI & below Physical Exam Constitutional: well developed and + obese; no acute distress Eyes: no scleral abnormality and no corneal abnormality ENMT: Mouth: no oral mucosal abnormality and oral mucous membranes not dry Neck: normal visual inspection and trachea midline Respiratory: normal respiratory effort Auscultation: lungs clear to auscultation bilaterally Cardiovascular: Rate/Rhythm: regular rate Heart Sounds: normal S1 and normal S2 Extremities: + edema Gastrointestinal (Abdomen): Inspection/Auscultation: + abdomen distended Percussion/Palpation: abdomen nontender Musculoskeletal: Extremities: no cyanosis and no clubbing Skin: normal turgor; no lesions Neurologic: Motor/Sensory: no tremor and no asterixis Psychiatric: Orientation: alert and oriented x 3 Results & Data ([facility]) Vital Signs (Past 12 Hours) Vital Signs Temp Pulse Pulse Pulse Resp BP BP 04/09/20 08:12 36.4 C L 72 16 154/51 H 04/09/20 03:51 36.4 C L 90 20 111/69 04/09/20 00:03 86 04/08/20 22:05 36.3 C L 91 H 18 113/69 Pulse Ox 04/09/20 08:12 93 04/09/20 03:51 94 04/09/20 00:03 04/08/20 22:05 96 Laboratory Results Laboratory Results - last 24 hr 04/08/20 04/08/20 04/08/20 11:25 16:29 20:07 WBC RBC Hgb Hct MCV MCH MCHC RDW Std Deviation RDW Coeff of Jose Plt Count MPV Immature Gran % (Auto) Neut % (Auto) Lymph % (Auto) [place] % (Auto) Eos % (Auto) Baso % (Auto) Neut # (Auto) Lymph # (Auto) [place] # (Auto) Eos # (Auto) Baso # (Auto) Immature Gran # (Auto) Absolute Nucleated RBC Nucleated RBC % (auto) Giant Platelets Polychromasia Anisocytosis PT INR Sodium Potassium Chloride Carbon Dioxide Anion Gap BUN Creatinine Est Cr Clr Drug Dosing Est GFR ( Amer) Est GFR (Non-Af Amer) BUN/Creatinine Ratio Glucose POC Glucose 149 H 195 H 140 H Calcium Total Bilirubin AST ALT Alkaline Phosphatase Ammonia Total Protein Albumin Globulin Albumin/Globulin Ratio 04/09/20 04/09/20 04/09/20 05:21 05:21 05:21 WBC 12.96 H RBC 2.65 L Hgb 8.3 L Hct 27.5 L MCV 103.8 H MCH 31.3 MCHC 30.2 L RDW Std Deviation 79.7 H RDW Coeff of Jose 21.7 H Plt Count 498 H MPV 11.2 H Immature Gran % (Auto) 3.5 Neut % (Auto) 73.5 Lymph % (Auto) 14.4 [place] % (Auto) 8.0 Eos % (Auto) 0.5 Baso % (Auto) 0.1 Neut # (Auto) 9.52 H Lymph # (Auto) 1.86 [place] # (Auto) 1.04 H Eos # (Auto) 0.07 Baso # (Auto) 0.01 Immature Gran # (Auto) 0.46 H Absolute Nucleated RBC 0.03 H Nucleated RBC % (auto) 0.2 Giant Platelets 1+ Polychromasia 2+ Anisocytosis Present PT INR Sodium 135 L Potassium 4.0 Chloride 102 Carbon Dioxide 26 Anion Gap 7.0 BUN 50 H Creatinine 4.44 H D Est Cr Clr Drug Dosing 20.6 Est GFR ( Amer) 14.0 Est GFR (Non-Af Amer) 12.1 BUN/Creatinine Ratio 11.2 Glucose 84 POC Glucose Calcium 8.5 Total Bilirubin 2.0 H AST 24 ALT 12 Alkaline Phosphatase 117 Ammonia 25.0 Total Protein 7.1 Albumin 2.7 L Globulin 4.4 H Albumin/Globulin Ratio 0.6 L 04/09/20 04/09/20 05:25 07:21 WBC RBC Hgb Hct MCV MCH MCHC RDW Std Deviation RDW Coeff of Jose Plt Count MPV Immature Gran % (Auto) Neut % (Auto) Lymph % (Auto) [place] % (Auto) Eos % (Auto) Baso % (Auto) Neut # (Auto) Lymph # (Auto) [place] # (Auto) Eos # (Auto) Baso # (Auto) Immature Gran # (Auto) Absolute Nucleated RBC Nucleated RBC % (auto) Giant Platelets Polychromasia Anisocytosis PT 17.5 H INR 1.7 H Sodium Potassium Chloride Carbon Dioxide Anion Gap BUN Creatinine Est Cr Clr Drug Dosing Est GFR ( Amer) Est GFR (Non-Af Amer) BUN/Creatinine Ratio Glucose POC Glucose 87 Calcium Total Bilirubin AST ALT Alkaline Phosphatase Ammonia Total Protein Albumin Globulin Albumin/Globulin Ratio PG Care Time/CCT Total # of Minutes Spent Total Time Spent with Patient: Total time spent is greater than 50% in coordination of care (as documented) at patient's floor/unit and/or counseling patient: Coding Level of Care Code 89092 Subseq Hosp Care Lvl 3 Diagnoses Acute renal failure (ARF) N17.9 Acute renal failure type: unspecified Chronic kidney disease N18.30 Chronic kidney disease stage: stage 3 (moderate) Chronic kidney disease stage 3 subtype: unspecified whether 3a or 3b Wound of foot S91.309A Cirrhosis K74.60; R18.8 Hepatic cirrhosis type: unspecified hepatic cirrhosis Ascites presence: with ascites Depression F32.9 (1) Acute renal failure (ARF) Acute renal failure type: unspecified Qualified Code(s): N17.9 - Acute kidney failure, unspecified (2) Chronic kidney disease Chronic kidney disease stage: stage 3 (moderate) Chronic kidney disease stage 3 subtype: unspecified whether 3a or 3b Qualified Code(s): N18.30 - Chronic kidney disease, stage 3 unspecified (3) Cirrhosis Hepatic cirrhosis type: unspecified hepatic cirrhosis Ascites presence: with ascites Qualified Code(s): K74.60 - Unspecified cirrhosis of liver; R18.8 - Other ascites
--- NOTE | 2020-04-09 10:01 | Consultation ---
Date of Consultation April 09, 2020 Assessment & Plan (1) Acute renal failure (ARF): Pt discussed with Dr Larson, planning on permcath insertion tomorrow in OR. Pt agreeable. Continue to hold AC at least until after permcath insertion. Acute renal failure type: unspecified Qualified Code(s): N17.9 - Acute kidney failure, unspecified History of Present Illness Reason for Consultation: LINO, need permcath Attending Physician: Carlitos Clements History of Present Illness 74 yo m with multiple medical problems, including CKD III, liver cirrhosis, LLE AKA, gout, DMII, hyperlipidemia, HTN, chronic anemia, GERD, CHF, COPD, mech anical cardiac valve, admitted with LINO, seen in consultation today for insertion of permcath for HD. Pt had temporary line inserted and has had successful HD, but will require more durable catheter for outpt HD. Pt admits fatigue/malaise. Denies PHELAN, fever, chest pain, SOB, abd pain, N/V, claudication, other complaints. Allergies Allergy/AdvReac Type Severity Reaction Status Date / Time enoxaparin Allergy Unknown Illness Verified 04/03/20 17:25 morphine Allergy Unknown Unknown Verified 04/03/20 17:26 adhesive AdvReac Unknown SORES WITH Verified 04/03/20 17:26 "SOME TAPE" oxycodone AdvReac Unknown HALLUCINATI Verified 04/03/20 17:26 ONS Home Medications Medication Instructions Recorded Confirmed Type allopurinol [Zyloprim] 300 mg PO QAM 01/09/18 04/03/20 History gemfibrozil [Lopid] 600 mg PO QAM 01/09/18 04/03/20 History glipizide [Glucotrol] 10 mg PO BID 01/09/18 04/03/20 History pantoprazole [Protonix] 40 mg PO QAM 01/09/18 04/03/20 History aspirin [Ecotrin Low Strength] 81 mg PO QAM #30 tab 01/14/18 04/03/20 Rx Lantus Solostar U-100 Insulin 15 unit SUBCUT DAILY@2100 11/12/18 04/03/20 History pregabalin 50 mg PO BID 03/22/19 04/03/20 History metoprolol tartrate 100 mg tablet 100 mg PO BID 05/01/19 04/03/20 History furosemide 40 mg tablet 80 mg PO BID tab 09/04/19 04/03/20 History levothyroxine 50 mcg PO QAM 02/22/20 04/03/20 History warfarin 2.5 mg PO 3XWK 02/22/20 04/03/20 History warfarin 5 mg PO 4XWK 02/22/20 04/03/20 History Patient History Medical History Afib Amputation of left lower extremity below knee Anemia Bronchitis CHF (congestive heart failure) Diabetes GERD (gastroesophageal reflux disease) Gout Hyperlipidemia Hypertension Thrombocytosis Uremia Surgical History History of appendectomy History of cholecystectomy Mechanical heart valve present 1997 S/P AKA (above knee amputation) unilateral Family History Other Family history of diabetes mellitus Social History Smoking Status: Unknown if ever smoked Second Hand Exposure: No; Hx Alcohol Use: No Hx Substance Use: No Preferred Language: Pashto Communication Ability: Effective Visual Impairment: No Limitations Educational Resource Coordinator Required: No Beliefs That Will Affect Care: None marital status: Current Living Situation: Family Other Information That Helps Us Care for You: No Feels Safe at Home: Yes Safety Concerns: Feels Safe At This Time Assistive Devices: Glasses Review of Systems Review of Systems: All systems reviewed & are unremarkable except as noted in HPI & below Physical Exam Constitutional: WD/WN, vitals as above + morbidly obese and cooperative; not in distress Eyes: PERRL, conjunctivae normal, anicteric sclerae Neck: trachea midline Respiratory: Auscultation: + diminished lung sounds and + crackles (basilar) Cardiovascular: Rate/Rhythm: regular rate and regular rhythm Heart Sounds: + click Vessels: posterior tibial pulses present (RLE), dorsalis pedis pulses present (RLE), brachial pulses present and radial pulses present; + abnormal peripheral pulses Extremities: normal capillary refill, + edema and + vascu lar access device (R IJ temporary HD catheter noted.) Gastrointestinal (Abdomen): Inspection/Auscultation: + abdomen distended and normal bowel sounds Percussion/Palpation: abdomen soft; abdomen nontender Musculoskeletal: Extremities: + amputation noted (LLE AKA) Skin: no rashes, warm and dry Neurologic: moves all extremities; no focal motor deficits Psychiatric: Orientation: alert, oriented to person and oriented to place; + not oriented to time Affect: + flat affect Results & Data ([facility]) Vital Signs (Past 12 Hours) Vital Signs Temp Pulse Pulse Pulse Resp BP BP 04/09/20 08:12 36.4 C L 72 16 154/51 H 04/09/20 03:51 36.4 C L 90 20 111/69 04/09/20 00:03 86 04/08/20 22:05 36.3 C L 91 H 18 113/69 Pulse Ox 04/09/20 08:12 93 04/09/20 03:51 94 04/09/20 00:03 04/08/20 22:05 96
[2020-04-09] MEDS: HEPARIN SOD 5,000 UNIT/0.5 ML VIAL SQ SCH ×3 (10:15→21:19)
--- NOTE | 2020-04-09 12:48 | Psychiatric Consultation ---
Date of Consultation April 09, 2020 Impression / Recommendations Impression Dr. Alina Che was directly involved in review and discussion of the patient's case and participated in medical decision making regarding treatment recommendations. RECOMMENDATIONS: 04/09/20 - Psychiatric consultation requested by nephrology service after patient had reportedly verbalized feelings of hopelessness and wishes during their follow-up visit today. - Pt denies depressive symptoms prior to his current hospitalization and believes his mood is related to dealing with his chronic medical conditions and frustrations related to hospitalization during a pandemic (visitor restrictions, limited support, fear, etc). Pt is future oriented in the sense that he is wanting to return home as soon as possible and is hoping to see his family soon. He admits to having support of family and having many activities that keep him busy at home. Pt did agree to sign an OLIMPIA for his to allow us to gather collateral information and to review safety planning. He did not feel that she would offer any concerns about his mood. - Will discuss safety planning with patient's , which includes monitoring for depressive symptoms and passive wishes or SI. We are also encouraging that she secure any guns or weapons within the home until patient is stable with regard to his mood. Would encourage staff to also routinely monitor mood and SI during his hospitalization. - Patient agreed to sign OLIMPIA for his PCP - we will fax documentation from this consultation to allow for coordination of care. Would encourage continued monitoring of mood, and referrals for outpatient psychiatry or therapy if concerns for depression continue. Pt is not interested in a trial of an antidepressant at this time, and he does somewhat convincingly report that his currently depressed mood is situational and does not pre-date his hospital admission. Nonetheless, patient does have several risk factors for depression and potential harm to self (gender, age, chronic medical conditions), and his mood should be monitored closely. - If considering an antidepressant medication, it does seem that sertraline would be a reasonable option as it does not require dosing adjustments for renal dysfunction and is generally preferred in patient's on Warfarin. Would encourage dosing at 25mg qAM, and could increased by 25mg weekly or as tolerated until reaching a dose of 100mg (continued adjustments as needed to target mood). Obviously medication interactions would need to be taken into account when considering initiation of an antidepressant; however, if depressive symptoms continue have his discharge it may be a beneficial option to improve his mood and improve prognosis with regard to his general medical treatment. Risk Factors Assessment Do You Have Access To A Gun?: Yes (reports a personal hobby is to build [employer]) Psych History Identifying Data 74-year-old male admitted medically on 04/03/2020 after being sent to the ED by his PCP for decreased urine output and medical decompensation. Psychiatric consultation was requested by our nephrology service due to hopelessness and wishes verbalized by the patient during follow-up visit. Chief Complaint "I'm not bad, just depressed." History of Present Illness Ross Merchant is a 74-year-old male admitted medically on 04/03/2020 following a visit to his PCP. It was reported during the visit that patient had decreased urine output and was decompensating in general, and ED visit was encouraged. Pt has numerous medical conditions, including CHF, ARF, HTN, HLD, cirrhosis, and diabetes. Nephrology service was consulted and patient began dialysis. During nephrology follow-up visit in the hospital on 04/09, the patient reportedly appeared more depressed and had verbalized hopelessness and wishes. He continued to be agreeable with recommended treatment, and per documentation verbalized his ultimate desire was to continue to work toward discharge home. Psychiatric consultation was requested by our Nephrology colleagues to evaluate patient further for these statements. Pt is superficially cooperative with interview, and presents as depressed and somewhat guarded. The patient begins our conversation by reporting "I'm not bad, just depressed." He states that he has been frustrated that he is requiring a hospitalization and states "I come in here and I'm told a need a stent. That was a 12-hour ordeal that knocked the shit out of me." He states that he is frustrated with his general medical condition and feels his mood is worsened even more by the fact that he cannot have visitors in the hospital. He denies feeling depressed prior to his hospitalization and states "it just started while I was in here. You can only stare at blank [place] for so long." He admits to poor sleep and decreased appetite in the hospital, but denies that these were concerns prior to his admission. He does admit that his goal is "to get better and get out of here. To get home to my and family." He reports "I have a good life and I'm ambitious to get some things done." He states that he has several hobbies and activities to keep him busy at home and denies anhedonia, apathy, or hopelessness when outside of the hospital setting. Pt does verbalize somewhat provocative and conditional statements related to /suicidality. He does state "If I can't go home, then there's no point. I'll just be done with it all." He does not verbalize any specific plan, but then also states "I wouldn't want to give up the secret." Pt convincingly stated that he does not currently feel he would act on these statements as he is still hopeful he will be returning home soon. He states he has not had suicidal thoughts in the past and would not feel he would have them outside of the hospital setting. This provider did express appreciation that patient could be open and honest, but also discussed concern for these statements. Pt did report that he felt he could communicate to staff if his frustration was reaching a point of acute safety risk. This provider express that his treatment team is working with him to get stronger and leave the hospital. He is agreeable with current treatment recommendations from his other medical services. Initiation of an antidepressant medication was offered to the patient, as he does have several risk factors for depression and they may be beneficial in improving prognosis with regard to his many chronic medical conditions. Pt is declining at this time, but did agree to discuss future recommendations. Pt was encouraged to continue these conversations with his PCP or to reach out to our service with any additional concerns during his stay. He denied other needs or concerns at this time. Past Psychiatric History Current Psychiatric Diagnosis: Denies previous psychiatric diagnoses Outpatient Services: None Previous Psych Admissions: Denied Do You Have Access To A Gun?: Yes (reports a personal hobby is to build [employer]) History of Previous Suicide Attempt: No Past Medication Trials: Denies Allergies Allergy/AdvReac Type Severity Reaction Status Date / Time enoxaparin Allergy Unknown Illness Verified 04/03/20 17:25 morphine Allergy Unknown Unknown Verified 04/03/20 17:26 adhesive AdvReac Unknown SORES WITH Verified 04/03/20 17:26 "SOME TAPE" oxycodone AdvReac Unknown HALLUCINATI Verified 04/03/20 17:26 ONS Home Medications Medication Instructions Recorded Confirmed Type allopurinol [Zyloprim] 300 mg PO QAM 01/09/18 04/03/20 History gemfibrozil [Lopid] 600 mg PO QAM 01/09/18 04/03/20 History glipizide [Glucotrol] 10 mg PO BID 01/09/18 04/03/20 History pantoprazole [Protonix] 40 mg PO QAM 01/09/18 04/03/20 History aspirin [Ecotrin Low Strength] 81 mg PO QAM #30 tab 01/14/18 04/03/20 Rx Lantus Solostar U-100 Insulin 15 unit SUBCUT DAILY@2100 11/12/18 04/03/20 History pregabalin 50 mg PO BID 03/22/19 04/03/20 History metoprolol tartrate 100 mg tablet 100 mg PO BID 05/01/19 04/03/20 History furosemide 40 mg tablet 80 mg PO BID tab 09/04/19 04/03/20 History levothyroxine 50 mcg PO QAM 02/22/20 04/03/20 History warfarin 2.5 mg PO 3XWK 02/22/20 04/03/20 History warfarin 5 mg PO 4XWK 02/22/20 04/03/20 History Family History Denies known family history of mental health conditions. Substance Abuse History Denies significant alcohol or tobacco use. Denies use of illicit substances. Personal History Living Arrangements: Home (with in [place]) Employment Status: Retired Number Of Children: 2 adult children Beliefs That Will Affect Care: None Patient History Medical History (Updated 04/09/20 @ 13:06 by Leopoldo Garcia MD) Afib Amputation of left lower extremity below knee Anemia Bronchitis CHF (congestive heart failure) Diabetes GERD (gastroesophageal reflux disease) Gout Hyperlipidemia Hypertension Renal insufficiency Thrombocytosis Uremia Surgical History (Updated 04/09/20 @ 13:03 by Leopoldo Garcia MD) History of appendectomy History of cholecystectomy History of prosthetic aortic valve Mechanical heart valve present 1997 S/P AKA (above knee amputation) unilateral Family History Other Family history of diabetes mellitus Social History Smoking Status: Unknown if ever smoked Second Hand Exposure: No; Hx Alcohol Use: No Hx Substance Use: No Preferred Language: Trinidadian Communication Ability: Effective Visual Impairment: No Limitations Machine Whitener Required: No Beliefs That Will Affect Care: None marital status: Current Living Situation: Family Other Information That Helps Us Care for You: No Feels Safe at Home: Yes Safety Concerns: Feels Safe At This Time Assistive Devices: Glasses Physical Exam Psychiatric: Orientation: alert, oriented x 3 and + guarded (superficially cooperative ) Apperance: appropriately dressed, appropriately groomed and appeared stated age Obese male, laying in bed - appearing slightly uncomfortable but in no acute distress. Pt is appropriately dressed for setting in a hospital gown. Level of hygiene and grooming is adequate for setting. Eye Contact: + fair eye contact Motor Behavior: no abnormal motor movements (observed while laying in bed) Speech: normal rate/rhythm/volume of speech Affect: + depressed affect and + flat affect Mood: + depressed mood Thought Process: goal directed thought process and thought association intact Thought Content: + hopelessness (intermittently, related to his medical conditions/treatment); not paranoid and no delusions Suicidal Thoughts: d enies suicidal thoughts denies SI presently, but does admit to frustrations surrounding his medical condition. He does verbalize some provocative wishes, but does not report any intent or plan to harm himself. He feels depression will resolve rather promptly after he returns home. Homicidal Thoughts: denies homicidal thoughts Hallucinations: no auditory hallucinations and no visual hallucinations Cognition: attention grossly intact and language grossly intact Estimated Intelligence: consistent with education level Insight: + impaired insight Judgement: + fair judgement Vital Signs (Past 24 Hours): Last Vital Signs Temp 36.6 C 04/09/20 12:10 Pulse 87 04/09/20 12:10 Resp 16 04/09/20 12:10 BP 105/70 04/09/20 12:10 Pulse Ox 95 04/09/20 12:10 Review of Systems Constitutional: reports generalized discomfort Cardiovascular: denied Respiratory: denied Gastrointestinal: denied Neurological: denied Psychiatric: denies symptoms other than stated above Total of at least 10 systems reviewed, pertinent positives as above and in HPI. Results & Data (PSY) Medications Administered Acetaminophen (Acetaminophen 325 Mg Tab) 650 mg PO Q4H PRN PRN Reason: Moderate Pain Stop: 05/03/20 19:34 Last Admin: 04/08/20 21:13 Dose: 650 mg Documented by: [id number] Admin: 04/05/20 06:27 Dose: 650 mg Documented by: [id number] Allopurinol (Allopurinol 300 Mg Tab) [facility] Stop: 05/04/20 08:59 Last Admin: 04/09/20 08:39 Dose: 300 mg Documented by: [id number] Admin: 04/08/20 08:39 Dose: 300 mg Documented by: [id number] Admin: 04/07/20 08:44 Dose: 300 mg Documented by: [id number] Admin: 04/06/20 08:22 Dose: Not Given Documented by: [id number] Admin: 04/05/20 07:29 Dose: 300 mg Documented by: [id number] Admin: 04/04/20 07:56 Dose: 300 mg Documented by: [id number] Aspirin (Aspirin 81 Mg Ectab) 81 mg PO [facility] Stop: 05/04/20 08:59 Last Admin: 04/09/20 08:40 Dose: 81 mg Documented by: [id number] Admin: 04/08/20 08:39 Dose: 81 mg Documented by: [id number] Admin: 04/07/20 08:45 Dose: 81 mg Documented by: [id number] Admin: 04/06/20 08:22 Dose: Not Given Documented by: [id number] Admin: 04/05/20 07:27 Dose: 81 mg Documented by: [id number] Admin: 04/04/20 07:56 Dose: 81 mg Documented by: [id number] Dextrose (Dextrose 50% 50 Ml Syringe) 25 - 50 ml IV UD PRN; Protocol PRN Reason: Hypoglycemia Protocol Stop: 05/03/20 19:34 Last Admin: 04/06/20 04:04 Dose: 50 ml Documented by: [id number] Admin: 04/05/20 17:00 Dose: 50 ml Documented by: [id number] Admin: 04/05/20 03:57 Dose: 50 ml Documented by: [id number] Admin: 04/04/20 06:35 Dose: 50 ml Documented by: [id number] Gemfibrozil (Gemfibrozil 600 Mg Tab) 600 mg PO [facility] Stop: 05/04/20 08:59 Last Admin: 04/09/20 08:40 Dose: 600 mg Documented by: [id number] Admin: 04/08/20 08:40 Dose: 600 mg Documented by: [id number] Admin: 04/07/20 08:45 Dose: 600 mg Documented by: [id number] Admin: 04/06/20 08:22 Dose: Not Given Documented by: [id number] Admin: 04/05/20 07:29 Dose: 600 mg Documented by: [id number] Admin: 04/04/20 07:56 Dose: 600 mg Documented by: [id number] Heparin Sodium (Porcine) (Heparin Sod 5,000 Unit/0.5 Ml Vial) 5,000 units SQ Q8 [facility] Stop: 05/09/20 09:14 Last Admin: 04/09/20 10:15 Dose: 5,000 units Documented by: [id number] Ceftriaxone Sodium 2,000 mg/ (Dextrose) 70 mls @ 100 mls/hr IV Q24H [facility]; Protocol Stop: 04/14/20 23:44 Last Infusion: 04/08/20 23:53 Dose: 0 mls/hr Documented by: [id number] Admin: 04/08/20 22:59 Dose: 100 mls/hr Documented by: [id number] Infusion: 04/08/20 01:09 Dose: 0 mls/hr Documented by: [id number] Admin: 04/08/20 00:24 Dose: 100 mls/hr Documented by: [id number] Insulin Aspart (Insulin Aspart 100 Units/Ml 3 Ml Pen) 0 units SC ACHS [facility] Stop: 05/03/20 20:59 Last Admin: 04/09/20 12:23 Dose: 2 units Documented by: [id number] Cosigned by: [id number] Admin: 04/09/20 08:42 Dose: 2 units Documented by: [id number] Cosigned by: [id number] Admin: 04/08/20 21:09 Dose: Not Given Documented by: [id number] Cosigned by: [id number] Admin: 04/08/20 17:47 Dose: 4 units Documented by: [id number] Cosigned by: [id number] Admin: 04/08/20 12:45 Dose: 4 units Documented by: [id number] Cosigned by: [id number] Admin: 04/08/20 08:44 Dose: 2 units Documented by: [id number] Cosigned by: [id number] Admin: 04/07/20 20:37 Dose: 2 units Documented by: [id number] Cosigned by: [id number] Admin: 04/07/20 17:55 Dose: 3 units Documented by: [id number] Cosigned by: [id number] Admin: 04/07/20 12:17 Dose: 4 units Documented by: [id number] Cosigned by: [id number] Admin: 04/07/20 08:45 Dose: 2 units Documented by: [id number] Cosigned by: [id number] Admin: 04/06/20 21:45 Dose: Not Given Documented by: [id number] Admin: 04/06/20 18:08 Dose: 2 units Documented by: [id number] Cosigned by: [id number] Admin: 04/06/20 12:27 Dose: Not Given Documented by: [id number] Admin: 04/06/20 08:22 Dose: Not Given Documented by: [id number] Admin: 04/05/20 21:48 Dose: Not Given Documented by: [id number] Cosigned by: [id number] Admin: 04/05/20 16:41 Dose: Not Given Documented by: [id number] Cosigned by: [id number] Admin: 04/05/20 11:41 Dose: Not Given Documented by: [id number] Cosigned by: [id number] Admin: 04/05/20 08:55 Dose: Not Given Documented by: [id number] Cosigned by: [id number] Admin: 04/04/20 21:08 Dose: Not Given Documented by: [id number] Cosigned by: [id number] Admin: 04/04/20 16:59 Dose: Not Given Documented by: [id number] Admin: 04/04/20 12:37 Dose: 3 units Documented by: [id number] Cosigned by: [id number] Admin: 04/04/20 08:33 Dose: 3 units Documented by: [id number] Cosigned by: [id number] Admin: 04/03/20 21:19 Dose: Not Given Documented by: [id number] Insulin Glargine (Insulin Glargine Solostar 100 Units/Ml 3 Ml Pen) 0 units SQ HS [facility]; Protocol Stop: 05/07/20 20:59 Last Admin: 04/08/20 21:10 Dose: Not Given Documented by: [id number] Admin: 04/07/20 20:35 Dose: Not Given Documented by: [id number] Levothyroxine Sodium (Levothyroxine Sodium 50 Mcg Tablet) 50 mcg PO DAILYBB [facility] Stop: 05/04/20 06:29 Last Admin: 04/09/20 05:54 Dose: 50 mcg Documented by: [id number] Admin: 04/08/20 05:23 Dose: 50 mcg Documented by: [id number] Admin: 04/07/20 06:06 Dose: 50 mcg Documented by: [id number] Admin: 04/06/20 05:35 Dose: 50 mcg Documented by: [id number] Admin: 04/05/20 05:36 Dose: Not Given Documented by: [id number] Admin: 04/04/20 06:20 Dose: 50 mcg Documented by: [id number] Metoprolol Tartrate (Metoprolol Tartrate 25 Mg Tab) 25 mg PO BID [facility] Stop: 05/06/20 20:59 Last Admin: 04/09/20 08:39 Dose: 25 mg Documented by: [id number] Admin: 04/08/20 21:09 Dose: 25 mg Documented by: [id number] Admin: 04/07/20 20:36 Dose: 25 mg Documented by: [id number] Admin: 04/07/20 08:44 Dose: 25 mg Documented by: [id number] Admin: 04/06/20 20:37 Dose: Not Given Documented by: [id number] Miscellaneous (Carbohydrates For Hypoglycemia ) 15 - 30 gm PO UD PRN PRN Reason: Hypoglycemia Protocol Stop: 05/03/20 19:34 Last Admin: 04/06/20 07:35 Dose: 15 gm Documented by: [id number] Admin: 04/05/20 16:36 Dose: 30 gm Documented by: [id number] Ondansetron HCl (Ondansetron Inj 2 Mg/Ml 2 Ml Vial) 4 mg IV Q4H PRN PRN Reason: Nausea And Vomiting Stop: 05/03/20 19:34 Last Admin: 04/08/20 15:27 Dose: 4 mg Documented by: [id number] Pantoprazole Sodium (Pantoprazole 40 Mg Tab) 40 mg PO QAM [facility] Stop: 05/04/20 08:59 Last Admin: 04/09/20 08:39 Dose: 40 mg Documented by: [id number] Admin: 04/08/20 08:39 Dose: 40 mg Documented by: [id number] Admin: 04/07/20 08:44 Dose: 40 mg Documented by: [id number] Admin: 04/06/20 08:22 Dose: Not Given Documented by: [id number] Admin: 04/05/20 07:29 Dose: 40 mg Documented by: [id number] Admin: 04/04/20 07:56 Dose: 40 mg Documented by: [id number] Pregabalin (Pregabalin 50 Mg Cap) 50 mg PO BID [facility] Stop: 05/03/20 20:59 Last Admin: 04/06/20 08:22 Dose: Not Given Documented by: [id number] Admin: 04/05/20 22:00 Dose: Not Given Documented by: [id number] Admin: 04/05/20 07:32 Dose: 50 mg Documented by: [id number] Admin: 04/04/20 21:14 Dose: 50 mg Documented by: [id number] Admin: 04/04/20 07:59 Dose: 50 mg Documented by: [id number] Admin: 04/03/20 21:26 Dose: Not Given Documented by: [id number] Rifaximin (Rifaximin 550 Mg Tablet) 550 mg PO BID [facility] Stop: 05/07/20 20:59 Last Admin: 04/09/20 08:40 Dose: 550 mg Documented by: [id number] Admin: 04/08/20 21:09 Dose: 550 mg Documented by: [id number] Admin: 04/08/20 08:40 Dose: 550 mg Documented by: [id number] Admin: 04/07/20 20:36 Dose: 550 mg Documented by: [id number] Warfarin Sodium (Warfarin Sod 5 Mg Tab) 5 mg PO [id number] [facility] Stop: 05/03/20 20:29 Last Admin: 04/03/20 21:31 Dose: Not Given Documented by: [id number] Warfarin Sodium (Warfarin Sod 7.5 Mg Tab) 7.5 mg PO DAILY@1600 [facility] Stop: 05/08/20 15:59 Last Admin: 04/08/20 17:45 Dose: 7.5 mg Documented by: [id number] Coding Level of Care Code 41470 U Intl Hosp Care Lvl 3
--- NOTE | 2020-04-09 13:01 | Anesthesiology Consultation ---
Date of Service April 09, 2020 Covid 19 negative on 04/06/20. Assessment & Plan (1) Encounter for pre-operative examination: (2) Anemia: Chart Review Chart Review: Acceptable Risk for Surgery (necessary procedure) and Patient NOT seen in Pre Admission Testing Consults Requested none medicine is following the patient History Surgery Operation Date: 04/10/20 07:00 Proposed Procedures p Perm Catheter Placement - Juan Larson MD Height/Weight Height: 5 ft 10 in Weight: 143.8 kg Allergies Allergy/AdvReac Type Severity Reaction Status Date / Time enoxaparin Allergy Unknown Illness Verified 04/03/20 17:25 morphine Allergy Unknown Unknown Verified 04/03/20 17:26 adhesive AdvReac Unknown SORES WITH Verified 04/03/20 17:26 "SOME TAPE" oxycodone AdvReac Unknown HALLUCINATI Verified 04/03/20 17:26 ONS Medications Home Medications Medication Instructions Recorded Confirmed Last Taken allopurinol [Zyloprim] 300 mg PO QAM 01/09/18 04/03/20 02/22/20 09:30 gemfibrozil [Lopid] 600 mg PO QAM 01/09/18 04/03/20 02/22/20 09:30 glipizide [Glucotrol] 10 mg PO BID 01/09/18 04/03/20 02/22/20 09:30 pantoprazole [Protonix] 40 mg PO QAM 01/09/18 04/03/20 02/22/20 09:30 aspirin [Ecotrin Low Strength] 81 mg PO QAM #30 tab 01/14/18 04/03/20 02/22/20 09:30 Lantus Solostar U-100 Insulin 15 unit SUBCUT DAILY@2100 11/12/18 04/03/20 02/21/20 15 UNITS pregabalin 50 mg PO BID 03/22/19 04/03/20 02/22/20 09:30 metoprolol tartrate 100 mg tablet 100 mg PO BID 05/01/19 04/03/20 02/22/20 09:30 furosemide 40 mg tablet 80 mg PO BID tab 09/04/19 04/03/20 02/22/20 09:30 levothyroxine 50 mcg PO QAM 02/22/20 04/03/20 02/22/20 09:30 warfarin 2.5 mg PO 3XWK 02/22/20 04/03/20 02/22/20 09:30 warfarin 5 mg PO 4XWK 02/22/20 04/03/20 02/21/20 09:30 Active Medications Generic Name Dose Route Start Last Admin Trade Name Freq PRN Reason Stop Dose Admin Acetaminophen 650 mg 04/03/20 19:35 04/08/20 21:13 Acetaminophen 325 Mg Tab PO 05/03/20 19:34 650 mg Q4H PRN Administration Moderate Pain Allopurinol 300 mg 04/04/20 09:00 04/09/20 08:39 Allopurinol 300 Mg Tab PO 05/04/20 08:59 300 mg QAM MARYBEL Administration Aspirin 81 mg 04/04/20 09:00 04/09/20 08:40 Aspirin 81 Mg Ectab PO 05/04/20 08:59 81 mg QAM MARYBEL Administration Dextrose 25 - 50 ml 04/03/20 19:35 04/06/20 04:04 Dextrose 50% 50 Ml Syringe IV 05/03/20 19:34 50 ml UD PRN Administration Hypoglycemia Protocol Protocol Gemfibrozil 600 mg 04/04/20 09:00 04/09/20 08:40 Gemfibrozil 600 Mg Tab PO 05/04/20 08:59 600 mg QAM MARYBEL Administration Heparin Sodium (Porcine) 5,000 units 04/09/20 09:15 04/09/20 10:15 Heparin Sod 5,000 Unit/0.5 Ml Vial SQ 05/09/20 09:14 5,000 units Q8 MARYBEL Administration Ceftriaxone Sodium 2,000 mg/ 70 mls @ 100 mls/hr 04/07/20 23:45 04/08/20 23:53 Dextrose IV 04/14/20 23:44 Infused Q24H MARYBEL Infusion Protocol Insulin Aspart 0 units 04/03/20 21:00 04/09/20 12:23 Insulin Aspart 100 Units/Ml 3 Ml Pen SC 05/03/20 20:59 2 units ACHS MARYBEL Administration Insulin Glargine 0 units 04/07/20 21:00 04/08/20 21:10 Insulin Glargine Solostar 100 Units/Ml 3 Ml Pen SQ 05/07/20 20:59 Not Given HS MARYBEL Protocol Levothyroxine Sodium 50 mcg 04/04/20 06:30 04/09/20 05:54 Levothyroxine Sodium 50 Mcg Tablet PO 05/04/20 06:29 50 mcg DAILYBB MARYBEL Administration Metoprolol Tartrate 25 mg 04/06/20 21:00 04/09/20 08:39 Metoprolol Tartrate 25 Mg Tab PO 05/06/20 20:59 25 mg BID MARYBLE Administration Miscellaneous 15 - 30 gm 04/03/20 19:35 04/06/20 07:35 Carbohydrates For Hypoglycemia PO 05/03/20 19:34 15 gm UD PRN Administration Hypoglycemia Protocol Ondansetron HCl 4 mg 04/03/20 19:35 04/08/20 15:27 Ondansetron Inj 2 Mg/Ml 2 Ml Vial IV 05/03/20 19:34 4 mg Q4H PRN Administration Nausea And Vomiting Pantoprazole Sodium 40 mg 04/04/20 09:00 04/09/20 08:39 Pantoprazole 40 Mg Tab PO 05/04/20 08:59 40 mg QAM MARYBEL Administration Pregabalin 50 mg 04/03/20 21:00 04/06/20 08:22 Pregabalin 50 Mg Cap PO 05/03/20 20:59 Not Given BID MARYBEL Rifaximin 550 mg 04/07/20 21:00 04/09/20 08:40 Rifaximin 550 Mg Tablet PO 05/07/20 20:59 550 mg BID MARYBEL Administration Warfarin Sodium 5 mg 04/03/20 20:30 04/03/20 21:31 Warfarin Sod 5 Mg Tab PO 05/03/20 20:29 Not Given [email or web address] MARYBEL Warfarin Sodium 7.5 mg 04/08/20 16:00 04/08/20 17:45 Warfarin Sod 7.5 Mg Tab PO 05/08/20 15:59 7.5 mg DAILY@1600 MARYBEL Administration Past Medical History Medical History (Updated 04/09/20 @ 13:06 by Leopoldo Garcia MD) Afib Amputation of left lower extremity below knee Anemia Bronchitis CHF (congestive heart failure) Diabetes GERD (gastroesophageal reflux disease) Gout Hyperlipidemia Hypertension Renal insufficiency Thrombocytosis Uremia Past Family History Family History Other Family history of diabetes mellitus Past Surgical History Surgical History (Updated 04/09/20 @ 13:03 by Leopoldo Garcia MD) History of appendectomy History of cholecystectomy History of prosthetic aortic valve Mechanical heart valve present 1997 S/P AKA (above knee amputation) unilateral Social History Smoking Status: Unknown if ever smoked Hx Alcohol Use: No Hx Substance Use: No substance use type: does not use Physical Exam Vital Signs Last Vital Signs Temp 36.6 C 04/09/20 12:10 Pulse 87 04/09/20 12:10 Resp 16 04/09/20 12:10 BP 105/70 04/09/20 12:10 Pulse Ox 95 04/09/20 12:10 Testing Laboratory Results 04/09/20 05:21 04/09/20 05:21 PT 17.5 Seconds (9.0-12.0) H 04/09/20 05:25 INR 1.7 (0.9-1.1) H 04/09/20 05:25 APTT 49.8 Seconds (21.0-31.0) H* 04/03/20 14:41 Hemoglobin A1c 5.1 % (4.5-5.6) 04/04/20 05:17 Urine Color Dark Yellow 04/03/20 17:42 Urine Appearance Cloudy (Clear) A 04/03/20 17:42 Urine pH 5.0 (4.5-7.5) 04/03/20 17:42 Ur Specific [place] 1.018 (1.000-1.030) 04/03/20 17:42 Urine Protein Trace (Negative) H 04/03/20 17:42 Urine Glucose (UA) Negative (Negative) 04/03/20 17:42 Urine Ketones Trace (Negative) H 04/03/20 17:42 Urine Nitrite Negative (Negative) 04/03/20 17:42 Ur Leukocyte Esterase Trace (Negative) H 04/03/20 17:42 Urine WBC (Auto) 1-5 /hpf (0-5) 04/03/20 17:42 Urine RBC (Auto) 5-10 /hpf (0-4) H 04/03/20 17:42 U Hyaline Cast (Auto) 10-30 /lpf (0-5) H 04/03/20 17:42 U Epithel Cells (Auto) 10-20 /lpf (0-5) H 04/03/20 17:42 Urine Bacteria (Auto) Negative (Negative) 04/03/20 17:42 04/03/20 15:44 Aerobic Blood Culture - Final Blood No growth in Aerobic bottle after 5 days. Anaerobic Blood Culture - Final 04/03/20 14:41 Aerobic Blood Culture - Final Blood No growth in Aerobic bottle after 5 days. Anaerobic Blood Culture - Final No growth in Anaerobic bottle after 5 days. 04/03/20 17:42 Urine Culture - Final Urine,Straight Cath No growth - less than 1,000 colonies/mL. 04/09/20 04/09/20 11:40 07:21 POC Glucose 111 H 87 Electrocardiogram Date: 04/03/20 Findings: + NSR @ (77) ST and T wave abnormality, inferolateral ischemia Chest X-Ray Date: 04/05/20 XR chest 1V portable HISTORY: dialysis cath placement COMPARISON: Chest 04/03/2020. FINDINGS: Cardiac silhouette remains moderately enlarged. There are poststernoto my changes. Interstitial/vascular thickening consistent with mild congestive change. This is similar to the prior study. No new focal lung consolidations to suggest pneumonia. No pneumothorax. No pleural effusions. Interval placement of right jugular central venous catheter terminates at the proximal SVC. IMPRESSION: 1. Right jugular catheter terminates at the proximal SVC. 2. Cardiomegaly with mild congestive change. This is similar to the prior study. ACT 112: Negative or not required by law. Electronically signed by: Leopoldo Del Real M.D. 04/05/2020 2:40 PM Dictated: 04/05/201432Transcribed: 04/05/20 143 Echocardiogram Date: 02/23/20 EF: 50-55 Other Findings: + LVH (mild) prosthetic aortic valve seated well (1) Anemia Anemia type: unspecified type Qualified Code(s): D64.9 - Anemia, unspecified
[2020-04-09] MEDS: WARFARIN SOD 7.5 MG TAB PO SCH (17:28)
[2020-04-09] MEDS: INSULIN GLARGINE SOLOSTAR 100 UNITS/ML 3 ML PEN SQ SCH (21:19)
[2020-04-09] MEDS: ACETAMINOPHEN 325 MG TAB PO PRN (21:23)
[2020-04-09] MEDS ORDERED: DAPTOmycin 400 MG in SYRINGE 0 ML IV SCH (22:00)
--- NOTE | 2020-04-09 23:07 | Hospitalist Progress Note ---
Date of Service April 09, 2020 Assessment & Plan (1) Acute metabolic encephalopathy: resolved. Was likely combination of both uremia and mild hepatic encephalopathy (along with right foot cellulitis causing met encephalopathy) . s/p Lactulose x 1 given followed by rifaximin BID. Continue HD for symptomatic uremia/ARF. HOLD lyrica in setting of ARF. Can likely resume next couple of days. Continue abx for foot infection. (2) Acute renal failure (ARF): Baseline Cr about 2 (in 02/2020). Was >6 with markedly elevated BUN at admission. Patient w/ volume overload and uremic symptoms. Temporary HD catheter placed (right IJ) by critical care. s/p HD x 3 sessions. Appreciate nephrology assistance. To receive permcath tomorrow by vascular; can d/c temporary catheter after that. (3) Acute uremia: confusion/uremic symptoms improved & resolving. appreciate nephrology assistance. wise catheter removed; had minimal urine output last 48 hours. (4) Cellulitis of right toe: MRI w/o signs of osteomyelitis or abscess. Again IMPROVED today. d/c rocephin and daptomycin. change to oral omnicef & doxycycline tomorrow. (5) Mechanical heart valve present: Inserted in 1988, prosthetic aortic valve. INR goal 2.5 to 3.5. INR today 1.7. Daily INR. resumed coumadin but increased to 7.5mg daily starting today. (6) Hyperlipidemia: Cont Lopid 600 mg QAM (7) Hypertension: Controlled without meds. Resume metoprolol as BP rises. (8) Anemia: stool heme+. despite such Hb about 8 last few days. Repeat CBC am. Very poor candidate for endoscopic eval given clinical status. 04/03 ferritin 120. (9) Cirrhosis: Thought 2nd to CHANG No prior etoh use s/p lactulose x 1 followed by Rifaximin -- started by GI today. repeat ammonia level in AM. HepB, C negative No significant ascites on recent ultrasound (10) Hyponatremia: 2nd to ARF Cortisol wnl. improving with HD sessions. now 134-135. (11) Diabetes: Since 2019 his a1c's have all been <7%. Hypoglycemia finally resolved - was likely due to glipizide. Lantus/novolog (12) Gout: Continue allopurinol prophylaxis (13) GERD (gastroesophageal reflux disease): Continue Protonix daily (14) Morbid obesity with BMI of 40.0-44.9, adult: BMI 45 (15) Wound of foot: RIGHT great toe/2nd toe webspace along with trauma to right great toe - local wound care stable (16) Chronic kidney disease: Previously stage 3 with baseline CrCl 30s/40s. Now with superimposed ARF/LINO requiring HD for symptomatic uremia & volume overload. Appreciate Dr Hernandez's consultation. Appreciate critical care and vascular assistance for access. (17) Hx of AKA (above knee amputation): LEFT (18) Hypoglycemia: see discussion above (19) DVT prophylaxis: INR <2 on coumadin thus, add heparin 5000 BID extensively updated by phone 04/06/20 and 04/08/20 DNR PT, OT will need rehab likely Admission and Anticipated Discharge Date Admission Date: April 03, 2020 Subjective tele- rate-controlled a.fib patient again states he is feeling better. mentation and thinking improved. he recalled he is having permcath tomorrow. appetite robust - eating 100% of meals. denies any pain in right foot. mild cough; no dyspnea at rest. no chest pain. no abd pain. stools have slowed down last 1-2 days. Review of Systems Constitutional: no fever and no chills Respiratory: + cough; no hemoptysis and no wheezing Cardiovascular: no chest pain Gastrointestinal: no nausea and no vomiting Physical Exam Constitutional: + morbidly obese and + frail appearing; no altered mental status (again knew it was 2020; knew he was in hospital) looks much better today ENMT: external ear and nose normal, oropharynx normal Respiratory: no respiratory distress Auscultation: + diminished lung sounds (bases); no crackles and no wheezes Cardiovascular: Rate/Rhythm: regular rate and + irregularly irregular Heart Sounds: normal S1 and normal S2; no murmur Vessels: posterior tibial pulses present and dorsalis pedis pulses present; no JVD Extremities: + edema (right leg - 2+ to the thigh) Gastrointestinal (Abdomen): Inspection/Auscultation: normal bowel sounds; abdomen not distended Percussion/Palpation: abdomen soft; abdomen nontender and no hepatosplenomegaly Skin: + pallor resolving cellulitis R 1st toe; ulcer in between 1st/2nd toes unchanged; right IJHD cath clean Neurologic: Motor/Sensory: no asterixis Psychiatric: Orientation: alert, oriented to person, oriented to place and oriented to time Results & Data Results & Data ([facility]) Vital Signs (Past 12 Hours) Vital Signs Temp Pulse Pulse Pulse Resp BP BP 04/09/20 19:43 36.5 C 89 20 165/68 H 04/09/20 16:00 81 04/09/20 15:17 36.8 C 87 20 113/71 04/09/20 12:10 36.6 C 87 16 105/70 Pulse Ox 04/09/20 19:43 95 04/09/20 16:00 04/09/20 15:17 94 04/09/20 12:10 95 Laboratory Results Laboratory Results - last 24 hr 04/09/20 04/09/20 04/09/20 05:21 05:21 05:21 WBC 12.96 H RBC 2.65 L Hgb 8.3 L Hct 27.5 L MCV 103.8 H MCH 31.3 MCHC 30.2 L RDW Std Deviation 79.7 H RDW Coeff of Jose 21.7 H Plt Count 498 H MPV 11.2 H Immature Gran % (Auto) 3.5 Neut % (Auto) 73.5 Lymph % (Auto) 14.4 Spink % (Auto) 8.0 Eos % (Auto) 0.5 Baso % (Auto) 0.1 Neut # (Auto) 9.52 H Lymph # (Auto) 1.86 Spink # (Auto) 1.04 H Eos # (Auto) 0.07 Baso # (Auto) 0.01 Immature Gran # (Auto) 0.46 H Absolute Nucleated RBC 0.03 H Nucleated RBC % (auto) 0.2 Giant Platelets 1+ Polychromasia 2+ Anisocytosis Present PT INR Sodium 135 L Potassium 4.0 Chloride 102 Carbon Dioxide 26 Anion Gap 7.0 BUN 50 H Creatinine 4.44 H D Est Cr Clr Drug Dosing 20.6 Est GFR ( Amer) 14.0 Est GFR (Non-Af Amer) 12.1 BUN/Creatinine Ratio 11.2 Glucose 84 POC Glucose Calcium 8.5 Total Bilirubin 2.0 H AST 24 ALT 12 Alkaline Phosphatase 117 Ammonia 25.0 Total Protein 7.1 Albumin 2.7 L Globulin 4.4 H Albumin/Globulin Ratio 0.6 L 04/09/20 04/09/20 04/09/20 05:25 07:21 11:40 WBC RBC Hgb Hct MCV MCH MCHC RDW Std Deviation RDW Coeff of Jose Plt Count MPV Immature Gran % (Auto) Neut % (Auto) Lymph % (Auto) [place] % (Auto) Eos % (Auto) Baso % (Auto) Neut # (Auto) Lymph # (Auto) Spink # (Auto) Eos # (Auto) Baso # (Auto) Immature Gran # (Auto) Absolute Nucleated RBC Nucleated RBC % (auto) Giant Platelets Polychromasia Anisocytosis PT 17.5 H INR 1.7 H Sodium Potassium Chloride Carbon Dioxide Anion Gap BUN Creatinine Est Cr Clr Drug Dosing Est GFR ( Amer) Est GFR (Non-Af Amer) BUN/Creatinine Ratio Glucose POC Glucose 87 111 H Calcium Total Bilirubin AST ALT Alkaline Phosphatase Ammonia Total Protein Albumin Globulin Albumin/Globulin Ratio 04/09/20 04/09/20 16:36 20:51 WBC RBC Hgb Hct MCV MCH MCHC RDW Std Deviation RDW Coeff of Jose Plt Count MPV Immature Gran % (Auto) Neut % (Auto) Lymph % (Auto) [place] % (Auto) Eos % (Auto) Baso % (Auto) Neut # (Auto) Lymph # (Auto) Spink # (Auto) Eos # (Auto) Baso # (Auto) Immature Gran # (Auto) Absolute Nucleated RBC Nucleated RBC % (auto) Giant Platelets Polychromasia Anisocytosis PT INR Sodium Potassium Chloride Carbon Dioxide Anion Gap BUN Creatinine Est Cr Clr Drug Dosing Est GFR ( Amer) Est GFR (Non-Af Amer) BUN/Creatinine Ratio Glucose POC Glucose 182 H 122 H Calcium Total Bilirubin AST ALT Alkaline Phosphatase Ammonia Total Protein Albumin Globulin Albumin/Globulin Ratio PG Care Time/CCT Total # of Minutes Spent Total Time Spent with Patient: Total time spent is greater than 50% in coordination of care (as documented) at patient's floor/unit and/or counseling patient: Coding Level of Care Code 93622 Subseq Hosp Care Lvl 3 Diagnoses Acute metabolic encephalopathy G93.41 Acute renal failure (ARF) N17.9 Acute renal failure type: unspecified Acute uremia N19 Cellulitis of right toe L03.031 Mechanical heart valve present Z95.2 Hyperlipidemia E78.5 Hyperlipidemia type: unspecified Hypertension I10 Hypertension type: essential hypertension Anemia D64.9 Anemia type: unspecified type Cirrhosis K74.60; R18.8 Ascites presence: with ascites Hepatic cirrhosis type: unspecified hepatic cirrhosis Hyponatremia E87.1 Diabetes E11.42; Z79.4 Diabetes mellitus complication detail: with polyneuropathy Diabetes mellitus complication status: with neurologic complications Diabetes mellitus senior care insulin use: with ferry terminal agent use Diabetes mellitus type: type 2 Gout M10.9 Chronicity: unspecified Gout etiology: unspecified cause Gout site: unspecified site GERD (gastroesophageal reflux disease) K21.9 Esophagitis presence: esophagitis presence not specified Morbid obesity with BMI of 40.0-44.9, adult E66.01; Z68.41 Wound of foot S91.309A Chronic kidney disease N18.30 Chronic kidney disease stage: stage 3 (moderate) Chronic kidney disease stage 3 subtype: unspecified whether 3a or 3b Hx of AKA (above knee amputation) Z89.619 Hypoglycemia E16.2 DVT prophylaxis Z29.9 (1) Diabetes Diabetes mellitus complication detail: with polyneuropathy Diabetes mellitus complication status: with neurologic complications Diabetes mellitus ferry terminal agent insulin use: with ferry terminal agent use Diabetes mellitus type: type 2 Qualified Code(s): E11.42 - Type 2 diabetes mellitus with diabetic polyneuropathy; Z79.4 - 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 terminal manager (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 insulin (2) Gout Chronicity: unspecified Gout etiology: unspecified cause Gout site: unspecified site Qualified Code(s): M10.9 - Gout, unspecified (3) Acute renal failure (ARF) Acute renal failure type: unspecified Qualified Code(s): N17.9 - Acute kidney failure, unspecified (4) Anemia Anemia type: unspecified type Qualified Code(s): D64.9 - Anemia, unspecified (5) Hyperlipidemia Hyperlipidemia type: unspecified Qualified Code(s): E78.5 - Hyperlipidemia, unspecified (6) Cirrhosis Ascites presence: with ascites Hepatic cirrhosis type: unspecified hepatic cirrhosis Qualified Code(s): K74.60 - Unspecified cirrhosis of liver; R18.8 - Other ascites (7) Chronic kidney disease Chronic kidney disease stage: stage 3 (moderate) Chronic kidney disease stage 3 subtype: unspecified whether 3a or 3b Qualified Code(s): N18.30 - Chronic kidney disease, stage 3 unspecified (8) GERD (gastroesophageal reflux disease) Esophagitis presence: esophagitis presence not specified Qualified Code(s): K21.9 - Gastro-esophageal reflux disease without esophagitis (9) Hypertension Hypertension type: essential hypertension Qualified Code(s): I10 - Essential (primary) hypertension
[2020-04-10] MEDS: cefTRIAXone SODIUM 2,000 MG in DEXTROSE 5% 50 ML IV SCH ×2 (00:59→02:20)
[2020-04-10] MEDS ORDERED: LORazepam 1 MG/2 ML VIAL IV ONE (02:02)
[2020-04-10] MEDS: HEPARIN SOD 5,000 UNIT/0.5 ML VIAL SQ SCH ×3 (05:48→21:03)
[2020-04-10] MEDS: LEVOTHYROXINE SODIUM 50 MCG TABLET PO SCH (05:48)
[2020-04-10 05:53] LABS: INR 2.3 (0.9-1.1); Prothrombin Time 22.8 Seconds (9.0-12.0)
[2020-04-10 06:19] LABS: Albumin Globulin Ratio 0.6 (0.9-2); Albumin Level 2.7 gm/dl (3.4-5.0); BUN Creatinine Ratio 10.9 (10-20); Bilirubin,Total 1.6 mg/dl (0.2-1); Calcium 8.5 mg/dl (8.5-10.1); Creatinine Clr Calc Pharmacy 17.6 ml/min; Est GFR (African American) 11.5; Est GFR (Non-African American) 9.9; Globulin 4.2 gm/dl (2.5-4.0); Potassium 4.3 mmol/L (3.5-5.1); Total Protein 6.9 gm/dl (6.4-8.2)
[2020-04-10 06:26] LABS: Anisocytosis Present; Basophils # (auto) 0.02 K/uL (0-0.2); Basophils % (auto) 0.1 %; Eosinophils # (auto) 0.07 K/uL (0-0.5); Eosinophils % (auto) 0.5 %; Hematocrit (blood only) 28.4 % (42-52); Hemoglobin 8.7 g/dL (14.0-18.0); Immature Granulocytes # (auto) 0.41 K/uL (0.00-0.02); Immature Granulocytes % (auto) 2.8 %; Lymphocytes # (auto) 2.27 K/uL (1.2-3.4); Lymphocytes % (auto) 15.8 %; Mean Corpuscular Hemoglobin 31.6 pg (25-34); Mean Corpuscular Hgb Conc 30.6 g/dL (32-36); Mean Corpuscular Volume 103.3 fL (80-100); Mean Platelet Volume 11.6 fL (7.4-10.4); Monocytes % (auto) 9.7 %; Neutrophils # (auto) 10.24 K/uL (1.4-6.5); Neutrophils % (auto) 71.1 %; Platelet Count 527 K/uL (130-400); Polychromasia 1+; RDW Coefficient of Variation 21.7 % (11.5-14.5); RDW Standard Deviation 81.4 fL (36.4-46.3); Red Blood Count 2.75 M/uL (4.7-6.1); White Blood Count 14.41 K/uL (4.8-10.8)
[2020-04-10] MEDS ORDERED: LIDOCAINE HCL 2% 2 ML VIAL/AMP(20MG/ML) INFIL ONE (07:09)
[2020-04-10] MEDS ORDERED: ePHEDrine sulfate 50 MG/ML SYR ONE (07:09)
[2020-04-10] MEDS ORDERED: PROPOFOL IV EMULSION 10 MG/ML 20 ML VIAL IV ONE (07:09)
[2020-04-10] MEDS ORDERED: MIDAZOLAM HCL 1 MG/ML 2ML VIAL ONE (07:10)
[2020-04-10] MEDS ORDERED: fentaNYL citrate 100 MCG/2 ML VIAL ONE (07:10)
[2020-04-10] MEDS ORDERED: LIDOCAINE HCL 1% 20 ML VIAL ONE (07:23)
[2020-04-10] MEDS ORDERED: HEPARIN SOD (PORCINE) 5,000 UNITS/ML VIAL ONE (07:23)
[2020-04-10] MEDS: INSULIN ASPART 100 UNITS/ML 3 ML PEN SC SCH ×4 (07:43→20:55)
--- NOTE | 2020-04-10 07:52 | History & Physical Bridge Note ---
Date of Service April 10, 2020 History & Physical Bridge Note Patient for insertion of permcath today. I have discussed the risks options and benefits of the procedure with the patient. The patient understands the risks options and benefits and agrees to the procedure. I have examined the patient, reviewed the History & Physical and in the interval since the performance of the History & Physical I have noted the following changes of clinical significance: no changes noted
--- NOTE | 2020-04-10 08:25 | Gastroenterology Progress Note ---
Date of Service April 10, 2020 Assessment & Plan (1) Cirrhosis: Patient with history of cirrhosis with hyperammonemia, likely etiology CHANG. Continue lactulose and Xifaxan. Will need GI outpatient follow-up. In the OR this morning for PermCath placement. Please refer to supervising physician addendum for further recommendations. Admission and Anticipated Discharge Date Admission Date: April 03, 2020 Subjective Patient in OR for PermCath placement this morning. Chart reviewed. Alert and oriented x 3 per nursing documentation. No bowel movement documented through the night. No abdominal pain, nausea, or vomiting. Review of Systems Review of Systems: Per HPI, patient with intermittent confusion Results & Data ([place]) Vital Signs (Past 12 Hours) Vital Signs Temp Pulse Pulse Pulse Resp BP BP 04/10/20 07:31 36.3 C L 97 H 20 113/64 04/10/20 07:16 36.7 C 92 H 22 113/52 L 04/10/20 02:38 36.4 C L 92 H 20 101/59 L 04/09/20 23:59 95 H 04/09/20 23:42 36.3 C L 87 20 94/58 L Pulse Ox 04/10/20 07:31 97 04/10/20 07:16 96 04/10/20 02:38 92 04/09/20 23:59 04/09/20 23:42 95 Laboratory Results - last 24 hr 04/09/20 04/09/20 04/09/20 11:40 16:36 20:51 WBC RBC Hgb Hct MCV MCH MCHC RDW Std Deviation RDW Coeff of Jose Plt Count MPV Immature Gran % (Auto) Neut % (Auto) Lymph % (Auto) Simpson % (Auto) Eos % (Auto) Baso % (Auto) Neut # (Auto) Lymph # (Auto) Simpson # (Auto) Eos # (Auto) Baso # (Auto) Immature Gran # (Auto) Polychromasia Anisocytosis PT INR Sodium Potassium Chloride Carbon Dioxide Anion Gap BUN Creatinine Est Cr Clr Drug Dosing Est GFR ( Amer) Est GFR (Non-Af Amer) BUN/Creatinine Ratio Glucose POC Glucose 111 H 182 H 122 H Calcium Total Bilirubin AST ALT Alkaline Phosphatase Ammonia Total Protein Albumin Globulin Albumin/Globulin Ratio 04/10/20 04/10/20 04/10/20 05:32 05:32 05:32 WBC RBC Hgb Hct MCV MCH MCHC RDW Std Deviation RDW Coeff of Jose Plt Count MPV Immature Gran % (Auto) Neut % (Auto) Lymph % (Auto) Simpson % (Auto) Eos % (Auto) Baso % (Auto) Neut # (Auto) Lymph # (Auto) Simpson # (Auto) Eos # (Auto) Baso # (Auto) Immature Gran # (Auto) Polychromasia Anisocytosis PT 22.8 H INR 2.3 H Sodium 134 L Potassium 4.3 Chloride 101 Carbon Dioxide 25 Anion Gap 8.0 BUN 58 H Creatinine 5.22 H* D Est Cr Clr Drug Dosing 17.6 Est GFR ( Amer) 11.5 Est GFR (Non-Af Amer) 9.9 BUN/Creatinine Ratio 10.9 Glucose 94 POC Glucose Calcium 8.5 Total Bilirubin 1.6 H AST 22 ALT 12 Alkaline Phosphatase 112 Ammonia 34.0 H Total Protein 6.9 Albumin 2.7 L Globulin 4.2 H Albumin/Globulin Ratio 0.6 L 04/10/20 05:33 WBC 14.41 H RBC 2.75 L Hgb 8.7 L Hct 28.4 L MCV 103.3 H MCH 31.6 MCHC 30.6 L RDW Std Deviation 81.4 H RDW Coeff of Jose 21.7 H Plt Count 527 H MPV 11.6 H Immature Gran % (Auto) 2.8 Neut % (Auto) 71.1 Lymph % (Auto) 15.8 Simpson % (Auto) 9.7 Eos % (Auto) 0.5 Baso % (Auto) 0.1 Neut # (Auto) 10.24 H Lymph # (Auto) 2.27 Simpson # (Auto) 1.40 H Eos # (Auto) 0.07 Baso # (Auto) 0.02 Immature Gran # (Auto) 0.41 H Polychromasia 1+ Anisocytosis Present PT INR Sodium Potassium Chloride Carbon Dioxide Anion Gap BUN Creatinine Est Cr Clr Drug Dosing Est GFR ( Amer) Est GFR (Non-Af Amer) BUN/Creatinine Ratio Glucose POC Glucose Calcium Total Bilirubin AST ALT Alkaline Phosphatase Ammonia Total Protein Albumin Globulin Albumin/Globulin Ratio (1) Cirrhosis Hepatic cirrhosis type: unspecified hepatic cirrhosis Ascites presence: with ascites Qualified Code(s): K74.60 - Unspecified cirrhosis of liver; R18.8 - Other ascites
--- NOTE | 2020-04-10 08:34 | Operative Report ---
Post Operative Report Pre & Post Diagnosis Operation Date: 04/10/20 07:00 <No data on this case meets the specified criteria> I identified the patient and participated in the time-out.: Yes Procedure Operation Date: 04/10/20 07:00 Actual Procedures p Insertion Of Perm Catheter, Right Internal Jugular Approach, Ultrasound Localization Of Right Internal Jugular Vein, Fluoroscopy For Positioning, Removal Of temporary dialysis catheter (Right) - Juan Larson MD Surgeon Juan Larson MD Manager Supply Chain Planning None Estimated Blood Loss 10 Findings Consistent with Post-Op Diagnosis Specimens None Anesthesia Type MAC Complications none Disposition Accompanied Patient To Recovery: No Disposition: Recovery Room Indications This is a 74-year-old gentleman with acute kidney injury. He is undergoing dialysis a temporary catheter. Recommendations were made for PermCath insertion for a longer term dialysis. I have discussed the risks options and benefits of the procedure with the patient. The patient understands the risks options and benefits and agrees to the procedure. Description of Procedure Patient was taken to the angio suite and placed in the supine position. The patient was identified and a timeout was performed. The dressing was removed from the temporary dialysis catheter. Sutures were removed and the catheter was pulled. Pressure was applied adequate hemostasis was then obtained. The right side of the neck and chest wall were prepped and draped in a sterile manner. Local anesthesia was then administered to the appropriate areas of the neck and chest wall. Ultrasound was then used to locate the right internal jugular vein. The vein compressed easily, had no filing defects, and was patent. The vein was then punctured under direct ultrasound imaging. A guidewire was then passed centrally under fluoroscopic imaging. A stab wound was then made in the anterior chest wall and a 19 cm permcath was passed from the stab wound on the chest wall to the puncture site on the neck. The puncture site was then dilated till the 14Fr peel away sheath was inserted. The permcath was then inserted through the sheath to a central position in the distal superior vena cava. The peel away sheath was then removed. The catheter was then sutured in place using nylon sutures. The puncture was then closed using a 4-0 Vicryl subcuticular suture. Dermabond was used for a dressing on the puncture site. Both ports aspirated and flushed easily and were then packed with heparin. A sterile dressing was applied to the catheter. The patient left the operation room in satisfactory condition and tolerated the procedure well. All needle and sponge counts were correct at the end of the procedure. I attest to the content of the Intraoperative Record and any orders documented therein. Any exceptions are noted below.
--- NOTE | 2020-04-10 08:58 | Anesthesiology Progress Note ---
Date of Service April 10, 2020 Anesthesia Post Procedure Vital Signs Vital Signs: Temp Pulse Pulse Pulse Pulse Resp BP 04/10/20 08:50 90 18 04/10/20 08:41 97.5 F L 81 18 04/10/20 07:31 97.3 F L 97 H 20 04/10/20 07:16 98.1 F 92 H 22 04/10/20 02:38 97.5 F L 92 H 20 101/59 L 04/09/20 23:59 95 H 04/09/20 23:42 97.3 F L 87 20 94/58 L 04/09/20 19:43 97.7 F 89 20 04/09/20 16:00 81 04/09/20 15:17 98.2 F 87 20 113/71 04/09/20 12:10 97.9 F 87 16 BP Pulse Ox 04/10/20 08:50 103/62 100 04/10/20 08:41 103/58 L 100 04/10/20 07:31 113/64 97 04/10/20 07:16 113/52 L 96 04/10/20 02:38 92 04/09/20 23:59 04/09/20 23:42 95 04/09/20 19:43 165/68 H 95 04/09/20 16:00 04/09/20 15:17 94 04/09/20 12:10 105/70 95 Transfer of Care Handoff Completed per policy Notes Mental Status: alert / awake / arousable and participated in evaluation Patient Amnestic to Procedure: Yes Nausea / Vomiting: adequately controlled Pain: adequately controlled Airway Patency, RR, SpO2: stable & adequate BP & HR: stable & adequate Hydration State: stable & adequate Anesthetic Complications: no major complications apparent and Pt Satisfied with anesthetic care
[2020-04-10] MEDS ORDERED: FUROSEMIDE 80 MG TAB PO SCH (09:00)
[2020-04-10] MEDS: rifAXIMin 550 MG TABLET PO SCH ×2 (09:00→21:02)
[2020-04-10] MEDS: DOXYCYCLINE HYCLATE 100 MG CAP PO SCH ×2 (09:00→21:02)
--- NOTE | 2020-04-10 10:35 | Nephrology Progress Note ---
Date of Service April 10, 2020 Assessment & Plan (1) Acute renal failure (ARF): * LINO - ddx includes type I HRS, ATN related to RLE cellulitis/myositis * No evidence of renal recovery * Completed 1st HD treatment 04/05/2019 * Temporary catheter removed and permcath placed 04/10/[address] Larson * Orders for HD today entered into the EMR and reviewed with the dialysis nurse (2) Chronic kidney disease: * Baseline Cr 2.0 (3) Wound of foot: * Partial avulsion of R great toe nail * 04/04/20 MRI R foot reveals cellulitis/myositis (4) Cirrhosis: * GI following (5) Depression: * Psychiatric consultation reviewed * Plan of care reviewed with patient's at his request Admission and Anticipated Discharge Date Admission Date: April 03, 2020 Subjective No acute events overnight. Ross was seen and evaluated post TDC placement this AM. He was lethargic from sedation. No complications with procedure. I spoke to his (Mely) by phone yesterday and today. Review of Systems Review of Systems: All systems reviewed & are unremarkable except as noted in HPI & below Physical Exam Constitutional: well developed and + obese; no acute distress Eyes: no scleral abnormality and no corneal abnormality ENMT: Mouth: no oral mucosal abnormality and oral mucous membranes not dry Neck: normal visual inspection and trachea midline Respiratory: normal respiratory effort Auscultation: lungs clear to auscultation bilaterally Cardiovascular: Rate/Rhythm: regular rate Heart Sounds: normal S1 and normal S2 Extremities: + edema Gastrointestinal (Abdomen): Inspection/Auscultation: + abdomen distended Percussion/Palpation: abdomen nontender Musculoskeletal: Extremities: no cyanosis and no clubbing Skin: normal turgor; no lesions Neurologic: Motor/Sensory: no tremor and no asterixis Psychiatric: Orientation: alert and oriented x 3 Results & Data ([facility]) Vital Signs (Past 12 Hours) Vital Signs Temp Pulse Pulse Pulse Pulse Resp BP 04/10/20 09:25 36.6 C 90 18 04/10/20 09:05 36.5 C 89 18 04/10/20 08:50 90 18 04/10/20 08:41 36.4 C L 81 18 04/10/20 07:31 36.3 C L 97 H 20 04/10/20 07:16 36.7 C 92 H 22 04/10/20 02:38 36.4 C L 92 H 20 101/59 L 04/09/20 23:59 95 H 04/09/20 23:42 36.3 C L 87 20 94/58 L BP Pulse Ox 04/10/20 09:25 126/79 100 04/10/20 09:05 106/67 100 04/10/20 08:50 103/62 100 04/10/20 08:41 103/58 L 100 04/10/20 07:31 113/64 97 04/10/20 07:16 113/52 L 96 04/10/20 02:38 92 04/09/20 23:59 04/09/20 23:42 95 Laboratory Results Laboratory Results - last 24 hr 04/09/20 04/09/20 04/09/20 11:40 16:36 20:51 WBC RBC Hgb Hct MCV MCH MCHC RDW Std Deviation RDW Coeff of Jose Plt Count MPV Immature Gran % (Auto) Neut % (Auto) Lymph % (Auto) Dickinson % (Auto) Eos % (Auto) Baso % (Auto) Neut # (Auto) Lymph # (Auto) Dickinson # (Auto) Eos # (Auto) Baso # (Auto) Immature Gran # (Auto) Polychromasia Anisocytosis PT INR Sodium Potassium Chloride Carbon Dioxide Anion Gap BUN Creatinine Est Cr Clr Drug Dosing Est GFR ( Amer) Est GFR (Non-Af Amer) BUN/Creatinine Ratio Glucose POC Glucose 111 H 182 H 122 H Calcium Total Bilirubin AST ALT Alkaline Phosphatase Ammonia Total Protein Albumin Globulin Albumin/Globulin Ratio 04/10/20 04/10/20 04/10/20 05:32 05:32 05:32 WBC RBC Hgb Hct MCV MCH MCHC RDW Std Deviation RDW Coeff of Jose Plt Count MPV Immature Gran % (Auto) Neut % (Auto) Lymph % (Auto) Dickinson % (Auto) Eos % (Auto) Baso % (Auto) Neut # (Auto) Lymph # (Auto) Dickinson # (Auto) Eos # (Auto) Baso # (Auto) Immature Gran # (Auto) Polychromasia Anisocytosis PT 22.8 H INR 2.3 H Sodium 134 L Potassium 4.3 Chloride 101 Carbon Dioxide 25 Anion Gap 8.0 BUN 58 H Creatinine 5.22 H* D Est Cr Clr Drug Dosing 17.6 Est GFR ( Amer) 11.5 Est GFR (Non-Af Amer) 9.9 BUN/Creatinine Ratio 10.9 Glucose 94 POC Glucose Calcium 8.5 Total Bilirubin 1.6 H AST 22 ALT 12 Alkaline Phosphatase 112 Ammonia 34.0 H Total Protein 6.9 Albumin 2.7 L Globulin 4.2 H Albumin/Globulin Ratio 0.6 L 04/10/20 05:33 WBC 14.41 H RBC 2.75 L Hgb 8.7 L Hct 28.4 L MCV 103.3 H MCH 31.6 MCHC 30.6 L RDW Std Deviation 81.4 H RDW Coeff of Jose 21.7 H Plt Count 527 H MPV 11.6 H Immature Gran % (Auto) 2.8 Neut % (Auto) 71.1 Lymph % (Auto) 15.8 Dickinson % (Auto) 9.7 Eos % (Auto) 0.5 Baso % (Auto) 0.1 Neut # (Auto) 10.24 H Lymph # (Auto) 2.27 Dickinson # (Auto) 1.40 H Eos # (Auto) 0.07 Baso # (Auto) 0.02 Immature Gran # (Auto) 0.41 H Polychromasia 1+ Anisocytosis Present PT INR Sodium Potassium Chloride Carbon Dioxide Anion Gap BUN Creatinine Est Cr Clr Drug Dosing Est GFR ( Amer) Est GFR (Non-Af Amer) BUN/Creatinine Ratio Glucose POC Glucose Calcium Total Bilirubin AST ALT Alkaline Phosphatase Ammonia Total Protein Albumin Globulin Albumin/Globulin Ratio PG Care Time/CCT Total # of Minutes Spent Total Time Spent with Patient: Total time spent is greater than 50% in coordination of care (as documented) at patient's floor/unit and/or counseling patient: Coding Level of Care Code 59561 Subseq Hosp Care Lvl 3 Diagnoses Acute renal failure (ARF) N17.9 Acute renal failure type: unspecified Chronic kidney disease N18.30 Chronic kidney disease stage: stage 3 (moderate) Chronic kidney disease stage 3 subtype: unspecified whether 3a or 3b Wound of foot S91.309A Cirrhosis K74.60; R18.8 Hepatic cirrhosis type: unspecified hepatic cirrhosis Ascites presence: with ascites Depression F32.9 (1) Acute renal failure (ARF) Acute renal failure type: unspecified Qualified Code(s): N17.9 - Acute kidney failure, unspecified (2) Chronic kidney disease Chronic kidney disease stage: stage 3 (moderate) Chronic kidney disease stage 3 subtype: unspecified whether 3a or 3b Qualified Code(s): N18.30 - Chronic kidney disease, stage 3 unspecified (3) Cirrhosis Hepatic cirrhosis type: unspecified hepatic cirrhosis Ascites presence: with ascites Qualified Code(s): K74.60 - Unspecified cirrhosis of liver; R18.8 - Other ascites
[2020-04-10] MEDS: METOPROLOL TARTRATE 25 MG TAB PO SCH ×2 (11:37→21:02)
[2020-04-10] MEDS: ADVANCED PROBIOTIC 1250 MG CAPSULE PO SCH (12:33)
[2020-04-10] MEDS: CEFDINIR 300 MG CAP PO SCH (12:34)
[2020-04-10] MEDS: PANTOprazole 40 MG TAB PO SCH (12:35)
[2020-04-10] MEDS: ASPIRIN 81 MG ECTAB PO SCH (12:35)
[2020-04-10] MEDS: gemfibroziL 600 MG TAB PO SCH (12:35)
[2020-04-10] MEDS: allopurinoL 300 MG TAB PO SCH (12:36)
[2020-04-10] MEDS: LACTULOSE SYRUP 20 GM/30 ML UDC PO SCH (12:39)
--- NOTE | 2020-04-10 13:35 | Pharmacy Report ---
Glycemic Control Progress Note - Date of Service April 10, 2020 - Scope Glycemic Pharmacist consulted for glycemic control to write orders per [facility] inpatient glycemic control protocol. - Objective Accuchecks BSG(last 24 hours):: 04/09/20 04/09/20 04/10/20 16:36 20:51 05:32 Glucose 94 POC Glucose 182 H 122 H 04/10/20 11:16 Glucose POC Glucose 75 HbA1c:: Hemoglobin A1c 5.1 % (4.5-5.6) 04/04/20 05:17 - Recent Pertinent Medications The patient is currently receiving: * Basal insulin: Lantus -- units every 24 hours * Correctional Insulin: Novolog Correction per scale ACHS Goal Range: Low 110 mg/dL - High 140 mg/dL Correction Factor: 35 mg/dL/unit * Prandial insulin: Per carb ratio of 1 unit per 10 grams CHO consumed - Outpatient Anti-Diabetic Meds Lantus 15 units daily Glipizide 10 mg BID - Assessment & Plan ASSESSMENT: * See progress note from 04/06/20 for more background info, in short: * Pt receiving SQ basal bolus insulin regimen for hyperglycemia secondary to baseline DM (outpatient regimen on hold). Patient currently on cefdinir and doxycycline. POD 0 for PermCath insertion. * Patient is currently receiving an average of 8 units of insulin per day * 0 units of basal insulin * 8 units of prandial/correctional insulin * BSGs ranging 87 - 182 mg/dl over the past 24hrs * Changes needed to insulin regimen: * AM Fasting BSG = 94 mg/dl. This is in goal range for patient based on inpatient targets and co-morbidities. Continue to hold basal insulin. * Post-prandial BSGs do trend upwards. Tighten carbohydrate ratio. * Total daily dose = <10 units. PLAN FOR INPATIENT GLYCEMIC CONTROL: * Continuing correction factor of 35 mg/dl/unit * TIGHTENING carb ratio to 1 unit per 10 grams CHO consumed * Continuing goal range of Low 110 mg/dL - High 140 mg/dL * Please note that the plan above was derived based on current level of insulin resistance and hospital stress. These recommendations are appropriate for inpatient admission only. Plan of care upon discharge will need to be reassessed to avoid potential outpatient hypo/hyperglycemia. Thank you.
--- NOTE | 2020-04-10 15:56 | Progress Notes ---
DATE: 04/10/2020 Progress note in conjunction with Nalini Astudillo: The patient's chart was reviewed and labs examined. The patient has cirrhosis, which is being treated with Xifaxan 550 mg twice a day. Lactulose has been discontinued because he has underlying frequent bowel movements and it is not really needed. His main problems now are his renal failure and cellulitis. The remainder of his liver evaluation can be completed as an outpatient including an EGD to assess for varices. He does not really have any ascites to speak of. We will sign off the patient at this point, but please contact us if any acute liver problems arise during the remainder of his hospitalization.
[2020-04-10] MEDS: WARFARIN SOD 7.5 MG TAB PO SCH (17:56)
[2020-04-10] MEDS ORDERED: PREGABALIN 50 MG CAP PO SCH (21:00)
[2020-04-10] MEDS: KETOCONAZOLE 2% CR 15 GM TUBE EXT SCH (21:06)
--- NOTE | 2020-04-10 22:51 | Hospitalist Progress Note ---
Date of Service April 10, 2020 Assessment & Plan (1) Acute metabolic encephalopathy: resolved. Combination of both uremia and mild hepatic encephalopathy (along with right foot cellulitis causing met encephalopathy) . s/p Lactulose and rifaximin BID. Continue HD for symptomatic uremia/ARF. HOLD lyrica in setting of ARF. Can likely resume next couple of days. Continue abx for foot infection. (2) Acute renal failure (ARF): Baseline Cr about 2 (in 02/2020). Was >6 with markedly elevated BUN at admission. Patient w/ volume overload and uremic symptoms. R IJ temporary HD catheter removed yesterday. Permanent HD catheter placed by Dr Larson yesterday as well. Thus POD #1. Received HD yesterday. Appreciate nephrology assistance. Next HD session on 04/12/20. (3) Acute uremia: confusion/uremic symptoms improved & resolving. appreciate nephrology assistance. wise catheter removed. (4) Cellulitis of right toe: MRI w/o signs of osteomyelitis or abscess. Again IMPROVED today. d/c rocephin and daptomycin. change to oral omnicef & doxycycline today. (5) Mechanical heart valve present: Inserted in 1988, prosthetic aortic valve. INR goal 2.5 to 3.5. INR today 2.3. Daily INR. Cont coumadin 7.5mg daily but suspect we will need to back this down TOMORROW to his typical dosing (previously was on 5's and 2.5's). (6) Hyperlipidemia: Cont Lopid 600 mg QAM (7) Hypertension: Controlled without meds. Resume metoprolol as BP rises. (8) Anemia: stool heme+. despite such Hb about 8 last few days. Repeat CBC am. Very poor candidate for endoscopic eval given clinical status. 04/03 ferritin 120. (9) Cirrhosis: Thought 2nd to CHANG No prior etoh use HepB, C negative No significant ascites on recent ultrasound mild hepatic encephalopathy this admission -- Rx with both once daily lactulose & rifaximin BD asterixis resolved; mentation much improved last 48 hours (10) Hyponatremia: 2nd to ARF Cortisol wnl. improving with HD sessions. now 134-135. (11) Diabetes: Since 2019 his a1c's have all been <7%. Hypoglycemia earlier this admission resolved - was likely due to glipizide. cont Lantus/novolog (12) Gout: Continue allopurinol prophylaxis no flares noted (13) GERD (gastroesophageal reflux disease): Continue Protonix daily (14) Morbid obesity with BMI of 40.0-44.9, adult: BMI 45 (15) Wound of foot: RIGHT great toe/2nd toe webspace along with trauma to right great toe - local wound care stable cont abx for cellulitis (16) Chronic kidney disease: Previously stage 3 with baseline CrCl 30s/40s. Now with superimposed ARF/LINO requiring HD for symptomatic uremia & volume overload. Appreciate Dr Hernandez's consultation. Appreciate critical care and vascular assistance for access. (17) Hx of AKA (above knee amputation): LEFT (18) Hypoglycemia: see discussion above resolved (19) Tinea pedis: right foot ketoconazole cream BID (20) DVT prophylaxis: tomorrow if INR remains over 2 can stop heparin SC extensively updated by phone 04/06/20 and 04/08/20 and again today, 04/10/20 DNR PT, OT will need rehab strongly consider palliative care consult - patient has voiced dying to nephrology, his , staff members Admission and Anticipated Discharge Date Admission Date: April 03, 2020 Subjective patient resting comfortably during my visit. was eating his meal. awake, alert, could recall day's events. offered no complaints. denies any tremors of arms/hands. no right foot pain. ongoing weakness. updated pt's by phone this evening. Review of Systems Constitutional: no fever and no chills Respiratory: no cough Cardiovascular: no chest pain and no dyspnea at rest Gastrointestinal: no abdominal pain, no nausea and no vomiting Physical Exam Constitutional: + morbidly obese and + frail appearing; no altered mental status (again knew it was 2020; knew he was in hospital) ENMT: external ear and nose normal, oropharynx normal Respiratory: no respiratory distress Auscultation: + diminished lung sounds (bases); no crackles and no wheezes Cardiovascular: Rate/Rhythm: regular rate and + irregularly irregular Heart Sounds: normal S1 and normal S2; no murmur Vessels: posterior tibial pulses present and dorsalis pedis pulses present; no JVD Extremities: + edema (right leg - unchanged ) mech valve closures s Gastrointestinal (Abdomen): Inspection/Auscultation: normal bowel sounds; abdomen not distended Percussion/Palpation: abdomen nontender and no hepatosplenomegaly Skin: right foot: great toe cellulitis again improved; toenail absent; resolving ecchymoses adjacent to medial aspect of nailbed ; tinea pedis of foot Neurologic: Motor/Sensory: no asterixis Psychiatric: Orientation: alert, oriented to person, oriented to place and oriented to time Results & Data Results & Data ([facility]) Vital Signs (Past 12 Hours) Vital Signs Temp Pulse Pulse Pulse Pulse Resp BP 04/10/20 19:53 36.3 C L 100 H 16 04/10/20 16:00 105 H 04/10/20 15:45 36.3 C L 98 H 16 04/10/20 15:18 36.6 C 90 04/10/20 15:00 94 H 117/69 04/10/20 14:40 65 109/62 04/10/20 14:20 94 H 125/58 L 04/10/20 14:00 94 H 116/69 04/10/20 13:40 82 113/69 04/10/20 13:20 97 H 108/63 04/10/20 13:00 88 134/65 04/10/20 12:40 36.6 C 90 04/10/20 11:56 36.6 C 82 18 BP Pulse Ox 04/10/20 19:53 105/60 100 04/10/20 16:00 04/10/20 15:45 104/64 95 04/10/20 15:18 116/72 04/10/20 15:00 04/10/20 14:40 04/10/20 14:20 04/10/20 14:00 04/10/20 13:40 04/10/20 13:20 04/10/20 13:00 04/10/20 12:40 04/10/20 11:56 100/69 99 Laboratory Results Laboratory Results - last 24 hr 04/10/20 04/10/20 04/10/20 05:32 05:32 05:32 WBC RBC Hgb Hct MCV MCH MCHC RDW Std Deviation RDW Coeff of Jose Plt Count MPV Immature Gran % (Auto) Neut % (Auto) Lymph % (Auto) Gillespie % (Auto) Eos % (Auto) Baso % (Auto) Neut # (Auto) Lymph # (Auto) Gillespie # (Auto) Eos # (Auto) Baso # (Auto) Immature Gran # (Auto) Polychromasia Anisocytosis PT 22.8 H INR 2.3 H Sodium 134 L Potassium 4.3 Chloride 101 Carbon Dioxide 25 Anion Gap 8.0 BUN 58 H Creatinine 5.22 H* D Est Cr Clr Drug Dosing 17.6 Est GFR ( Amer) 11.5 Est GFR (Non-Af Amer) 9.9 BUN/Creatinine Ratio 10.9 Glucose 94 POC Glucose Calcium 8.5 Total Bilirubin 1.6 H AST 22 ALT 12 Alkaline Phosphatase 112 Ammonia 34.0 H Total Protein 6.9 Albumin 2.7 L Globulin 4.2 H Albumin/Globulin Ratio 0.6 L 04/10/20 04/10/20 04/10/20 05:33 11:16 16:11 WBC 14.41 H RBC 2.75 L Hgb 8.7 L Hct 28.4 L MCV 103.3 H MCH 31.6 MCHC 30.6 L RDW Std Deviation 81.4 H RDW Coeff of Jose 21.7 H Plt Count 527 H MPV 11.6 H Immature Gran % (Auto) 2.8 Neut % (Auto) 71.1 Lymph % (Auto) 15.8 Gillespie % (Auto) 9.7 Eos % (Auto) 0.5 Baso % (Auto) 0.1 Neut # (Auto) 10.24 H Lymph # (Auto) 2.27 Gillespie # (Auto) 1.40 H Eos # (Auto) 0.07 Baso # (Auto) 0.02 Immature Gran # (Auto) 0.41 H Polychromasia 1+ Anisocytosis Present PT INR Sodium Potassium Chloride Carbon Dioxide Anion Gap BUN Creatinine Est Cr Clr Drug Dosing Est GFR ( Amer) Est GFR (Non-Af Amer) BUN/Creatinine Ratio Glucose POC Glucose 75 86 Calcium Total Bilirubin AST ALT Alkaline Phosphatase Ammonia Total Protein Albumin Globulin Albumin/Globulin Ratio 04/10/20 20:33 WBC RBC Hgb Hct MCV MCH MCHC RDW Std Deviation RDW Coeff of Jose Plt Count MPV Immature Gran % (Auto) Neut % (Auto) Lymph % (Auto) Gillespie % (Auto) Eos % (Auto) Baso % (Auto) Neut # (Auto) Lymph # (Auto) Gillespie # (Auto) Eos # (Auto) Baso # (Auto) Immature Gran # (Auto) Polychromasia Anisocytosis PT INR Sodium Potassium Chloride Carbon Dioxide Anion Gap BUN Creatinine Est Cr Clr Drug Dosing Est GFR ( Amer) Est GFR (Non-Af Amer) BUN/Creatinine Ratio Glucose POC Glucose 119 H Calcium Total Bilirubin AST ALT Alkaline Phosphatase Ammonia Total Protein Albumin Globulin Albumin/Globulin Ratio PG Care Time/CCT Total # of Minutes Spent Total Time Spent with Patient: Total time spent is greater than 50% in coordination of care (as documented) at patient's floor/unit and/or counseling patient: Coding Level of Care Code 85490 Subseq Hosp Care Lvl 3 Diagnoses Acute metabolic encephalopathy G93.41 Acute renal failure (ARF) N17.9 Acute renal failure type: unspecified Acute uremia N19 Cellulitis of right toe L03.031 Mechanical heart valve present Z95.2 Hyperlipidemia E78.5 Hyperlipidemia type: unspecified Hypertension I10 Hypertension type: essential hypertension Anemia D64.9 Anemia type: unspecified type Cirrhosis K74.60; R18.8 Ascites presence: with ascites Hepatic cirrhosis type: unspecified hepatic cirrhosis Hyponatremia E87.1 Diabetes E11.42; Z79.4 Diabetes mellitus complication detail: with polyneuropathy Diabetes mellitus complication status: with neurologic complications Diabetes mellitus intermediate manager insulin use: with correction use Diabetes mellitus type: type 2 Gout M10.9 Chronicity: unspecified Gout etiology: unspecified cause Gout site: unspecified site GERD (gastroesophageal reflux disease) K21.9 Esophagitis presence: esophagitis presence not specified Morbid obesity with BMI of 40.0-44.9, adult E66.01; Z68.41 Wound of foot S91.309A Chronic kidney disease N18.30 Chronic kidney disease stage: stage 3 (moderate) Chronic kidney disease stage 3 subtype: unspecified whether 3a or 3b Hx of AKA (above knee amputation) Z89.619 Hypoglycemia E16.2 Tinea pedis B35.3 DVT prophylaxis Z29.9 (1) Diabetes Diabetes mellitus complication detail: with polyneuropathy Diabetes mellitus complication status: with neurologic complications Diabetes mellitus intermediate manager insulin use: with correction use Diabetes mellitus type: type 2 Qualified Code(s): E11.42 - Type 2 diabetes mellitus with diabetic polyneuropathy; Z79.4 - FDC (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 insulin (2) Gout Chronicity: unspecified Gout etiology: unspecified cause Gout site: unspecified site Qualified Code(s): M10.9 - Gout, unspecified (3) Acute renal failure (ARF) Acute renal failure type: unspecified Qualified Code(s): N17.9 - Acute kidney failure, unspecified (4) Anemia Anemia type: unspecified type Qualified Code(s): D64.9 - Anemia, unspecified (5) Hyperlipidemia Hyperlipidemia type: unspecified Qualified Code(s): E78.5 - Hyperlipidemia, unspecified (6) Cirrhosis Ascites presence: with ascites Hepatic cirrhosis type: unspecified hepatic cirrhosis Qualified Code(s): K74.60 - Unspecified cirrhosis of liver; R18.8 - Other ascites (7) Chronic kidney disease Chronic kidney disease stage: stage 3 (moderate) Chronic kidney disease stage 3 subtype: unspecified whether 3a or 3b Qualified Code(s): N18.30 - Chronic kidney disease, stage 3 unspecified (8) GERD (gastroesophageal reflux disease) Esophagitis presence: esophagitis presence not specified Qualified Code(s): K21.9 - Gastro-esophageal reflux disease without esophagitis (9) Hypertension Hypertension type: essential hypertension Qualified Code(s): I10 - Essential (primary) hypertension
[2020-04-11] MEDS: HEPARIN SOD 5,000 UNIT/0.5 ML VIAL SQ SCH ×2 (06:01→14:45)
[2020-04-11] MEDS: LEVOTHYROXINE SODIUM 50 MCG TABLET PO SCH (06:02)
[2020-04-11 07:20] LABS: Hematocrit (blood only) 26.6 % (42-52); Hemoglobin 8.1 g/dL (14.0-18.0); Mean Corpuscular Hemoglobin 31.8 pg (25-34); Mean Corpuscular Hgb Conc 30.5 g/dL (32-36); Mean Corpuscular Volume 104.3 fL (80-100); Mean Platelet Volume 11.5 fL (7.4-10.4); Nucleated RBC # (auto) 0.03 K/uL (0-0); Nucleated RBC % (auto) 0.3 %; Platelet Count 434 K/uL (130-400); RDW Coefficient of Variation 21.8 % (11.5-14.5); RDW Standard Deviation 81.7 fL (36.4-46.3); Red Blood Count 2.55 M/uL (4.7-6.1); White Blood Count 10.89 K/uL (4.8-10.8)
[2020-04-11 07:41] LABS: INR 3.1 (0.9-1.1); Prothrombin Time 30.5 Seconds (9.0-12.0)
[2020-04-11 08:04] LABS: Albumin Level 2.6 gm/dl (3.4-5.0); Calcium 8.3 mg/dl (8.5-10.1); Creatinine Clr Calc Pharmacy 19.3 ml/min; Est GFR (African American) 12.9; Est GFR (Non-African American) 11.1; Potassium 4.1 mmol/L (3.5-5.1)
--- NOTE | 2020-04-11 08:37 | Gastroenterology Progress Note ---
Date of Service April 11, 2020 Assessment & Plan (1) Cirrhosis: Patient with history of cirrhosis with hyperammonemia, likely etiology CHANG. Continue lactulose and Xifaxan. Patient is doing well this morning. Denies complaints. Will need GI outpatient follow-up after discharge. GI will sign off - thank you for the consult, reconsult if needed. Please refer to supervising physician addendum for further recommendations. Admission and Anticipated Discharge Date Admission Date: April 03, 2020 Subjective s/p dialysis catheter placement yesterday. Alert and oriented today. Denies abdominal pain, nausea, or vomiting. 2 bowel movements documented through the night. Review of Systems Review of Systems: Per HPI, patient with intermittent confusion Physical Exam Constitutional: + morbidly obese Neck: trachea midline, no thyromegaly normal visual inspection Respiratory: normal respiratory effort; no respiratory distress and no labored breathing Cardiovascular: Rate/Rhythm: regular rate and regular rhythm Gastrointestinal (Abdomen): Inspection/Auscultation: abdomen normal to inspection and normal bowel sounds Percussion/Palpation: abdomen soft; abdomen nontender, no guarding and abdomen not rigid Musculoskeletal: Extremities: no cyanosis and no clubbing Psychiatric: Orientation: alert and oriented to person Results & Data ([facility]) Vital Signs (Past 12 Hours) Vital Signs Temp Pulse Pulse Resp BP Pulse Ox 04/11/20 07:38 36.8 C 96 H 20 115/70 93 04/11/20 03:31 36.0 C L 95 H 16 93/57 L 95 04/10/20 23:59 92 H 04/10/20 23:18 36.6 C 93 H 16 104/60 99 Laboratory Results - last 24 hr 04/10/20 04/10/20 04/10/20 11:16 16:11 20:33 WBC RBC Hgb Hct MCV MCH MCHC RDW Std Deviation RDW Coeff of Jose Plt Count MPV Absolute Nucleated RBC Nucleated RBC % (auto) PT INR Sodium Potassium Chloride Carbon Dioxide Anion Gap BUN Creatinine Est Cr Clr Drug Dosing Est GFR ( Amer) Est GFR (Non-Af Amer) BUN/Creatinine Ratio Glucose POC Glucose 75 86 119 H Calcium Phosphorus Albumin 04/11/20 04/11/20 04/11/20 06:02 06:02 06:02 WBC 10.89 H RBC 2.55 L Hgb 8.1 L Hct 26.6 L MCV 104.3 H MCH 31.8 MCHC 30.5 L RDW Std Deviation 81.7 H RDW Coeff of Jose 21.8 H Plt Count 434 H MPV 11.5 H Absolute Nucleated RBC 0.03 H Nucleated RBC % (auto) 0.3 PT 30.5 H INR 3.1 H Sodium 134 L Potassium 4.1 Chloride 99 Carbon Dioxide 25 Anion Gap 10.0 BUN 43 H Creatinine 4.75 H* D Est Cr Clr Drug Dosing 19.3 Est GFR ( Amer) 12.9 Est GFR (Non-Af Amer) 11.1 BUN/Creatinine Ratio 9.0 L Glucose 98 POC Glucose Calcium 8.3 L Phosphorus 5.0 H Albumin 2.6 L 04/11/20 07:29 WBC RBC Hgb Hct MCV MCH MCHC RDW Std Deviation RDW Coeff of Jose Plt Count MPV Absolute Nucleated RBC Nucleated RBC % (auto) PT INR Sodium Potassium Chloride Carbon Dioxide Anion Gap BUN Creatinine Est Cr Clr Drug Dosing Est GFR ( Amer) Est GFR (Non-Af Amer) BUN/Creatinine Ratio Glucose POC Glucose 111 H Calcium Phosphorus Albumin (1) Cirrhosis Hepatic cirrhosis type: unspecified hepatic cirrhosis Ascites presence: with ascites Qualified Code(s): K74.60 - Unspecified cirrhosis of liver; R18.8 - Other ascites
[2020-04-11] MEDS: INSULIN ASPART 100 UNITS/ML 3 ML PEN SC SCH ×4 (08:58→20:40)
[2020-04-11] MEDS: DOXYCYCLINE HYCLATE 100 MG CAP PO SCH ×2 (08:59→20:47)
[2020-04-11] MEDS: rifAXIMin 550 MG TABLET PO SCH ×2 (09:00→20:47)
[2020-04-11] MEDS: ADVANCED PROBIOTIC 1250 MG CAPSULE PO SCH (09:00)
[2020-04-11] MEDS: allopurinoL 300 MG TAB PO SCH (09:00)
[2020-04-11] MEDS: LACTULOSE SYRUP 20 GM/30 ML UDC PO SCH (09:00)
[2020-04-11] MEDS: CEFDINIR 300 MG CAP PO SCH (09:01)
[2020-04-11] MEDS: gemfibroziL 600 MG TAB PO SCH (09:01)
[2020-04-11] MEDS: PANTOprazole 40 MG TAB PO SCH (09:01)
[2020-04-11] MEDS: METOPROLOL TARTRATE 25 MG TAB PO SCH ×2 (09:01→20:46)
[2020-04-11] MEDS: ASPIRIN 81 MG ECTAB PO SCH (09:02)
[2020-04-11] MEDS: KETOCONAZOLE 2% CR 15 GM TUBE EXT SCH ×2 (09:02→20:48)
--- NOTE | 2020-04-11 09:47 | Nephrology Progress Note ---
Date of Service April 11, 2020 Assessment & Plan (1) Acute renal failure (ARF): * LINO - ddx includes type I HRS, ATN related to RLE cellulitis/myositis * No evidence of renal recovery * Completed 1st HD treatment 04/05/2019 * Temporary catheter removed and permcath placed 04/10/[address] Larson * BP, volume status, and electrolytes are currently acceptable * Anticipate next HD tomorrow * If Ross is discharged to [facility], I would be happy to help coordinate continued dialysis as needed * I have updated Ross's daily (2) Chronic kidney disease: * Baseline Cr 2.0 (3) Wound of foot: * Partial avulsion of R great toe nail * 04/04/20 MRI R foot reveals cellulitis/myositis (4) Cirrhosis: * Improved HE Admission and Anticipated Discharge Date Admission Date: April 03, 2020 Subjective No acute events overnight. HD treatment stopped early yesterday at patient's request. No complications with treatment. Net UF 1.5 L. Ross had difficulty distinguishing between his dialysis treatment and catheter placement during our conversation this morning. He was otherwise appropriate in all his answers. He told me that he thought he was supposed to be sedated throughout dialysis and that anxiety and pain in his tailbone make sitting through the treatments the most difficult. No fevers or chills. Denies pain. Review of Systems Review of Systems: All systems reviewed & are unremarkable except as noted in HPI & below Physical Exam Constitutional: well developed and + obese; no acute distress Eyes: no scleral abnormality and no corneal abnormality ENMT: Mouth: no oral mucosal abnormality and oral mucous membranes not dry Neck: normal visual inspection and trachea midline Respiratory: normal respiratory effort Auscultation: lungs clear to auscultation bilaterally Cardiovascular: Rate/Rhythm: regular rate Heart Sounds: normal S1 and normal S2 Extremities: + edema Gastrointestinal (Abdomen): Inspection/Auscultation: + abdomen distended Percussion/Palpation: abdomen nontender Musculoskeletal: Extremities: no cyanosis and no clubbing Skin: normal turgor; no lesions Neurologic: Motor/Sensory: no tremor and no asterixis Psychiatric: Orientation: alert and oriented x 3 Results & Data ([facility]) Vital Signs (Past 12 Hours) Vital Signs Temp Pulse Pulse Resp BP Pulse Ox 04/11/20 07:38 36.8 C 96 H 20 115/70 93 01/07/21 03:31 36.0 C L 95 H 16 93/57 L 95 04/10/20 23:59 92 H 04/10/20 23:18 36.6 C 93 H 16 104/60 99 Laboratory Results Laboratory Results - last 24 hr 04/10/20 04/10/20 04/10/20 11:16 16:11 20:33 WBC RBC Hgb Hct MCV MCH MCHC RDW Std Deviation RDW Coeff of Jose Plt Count MPV Absolute Nucleated RBC Nucleated RBC % (auto) PT INR Sodium Potassium Chloride Carbon Dioxide Anion Gap BUN Creatinine Est Cr Clr Drug Dosing Est GFR ( Amer) Est GFR (Non-Af Amer) BUN/Creatinine Ratio Glucose POC Glucose 75 86 119 H Calcium Phosphorus Albumin 04/11/20 04/11/20 04/11/20 06:02 06:02 06:02 WBC 10.89 H RBC 2.55 L Hgb 8.1 L Hct 26.6 L MCV 104.3 H MCH 31.8 MCHC 30.5 L RDW Std Deviation 81.7 H RDW Coeff of Jose 21.8 H Plt Count 434 H MPV 11.5 H Absolute Nucleated RBC 0.03 H Nucleated RBC % (auto) 0.3 PT 30.5 H INR 3.1 H Sodium 134 L Potassium 4.1 Chloride 99 Carbon Dioxide 25 Anion Gap 10.0 BUN 43 H Creatinine 4.75 H* D Est Cr Clr Drug Dosing 19.3 Est GFR ( Amer) 12.9 Est GFR (Non-Af Amer) 11.1 BUN/Creatinine Ratio 9.0 L Glucose 98 POC Glucose Calcium 8.3 L Phosphorus 5.0 H Albumin 2.6 L 04/11/20 07:29 WBC RBC Hgb Hct MCV MCH MCHC RDW Std Deviation RDW Coeff of Jose Plt Count MPV Absolute Nucleated RBC Nucleated RBC % (auto) PT INR Sodium Potassium Chloride Carbon Dioxide Anion Gap BUN Creatinine Est Cr Clr Drug Dosing Est GFR ( Amer) Est GFR (Non-Af Amer) BUN/Creatinine Ratio Glucose POC Glucose 111 H Calcium Phosphorus Albumin PG Care Time/CCT Total # of Minutes Spent Total Time Spent with Patient: Total time spent is greater than 50% in coordination of care (as documented) at patient's floor/unit and/or counseling patient: Coding Level of Care Code 04234 Subseq Hosp Care Lvl 3 Diagnoses Acute renal failure (ARF) N17.9 Acute renal failure type: unspecified Chronic kidney disease N18.30 Chronic kidney disease stage: stage 3 (moderate) Chronic kidney disease stage 3 subtype: unspecified whether 3a or 3b Wound of foot S91.309A Cirrhosis K74.60; R18.8 Hepatic cirrhosis type: unspecified hepatic cirrhosis Ascites presence: with ascites (1) Acute renal failure (ARF) Acute renal failure type: unspecified Qualified Code(s): N17.9 - Acute kidney failure, unspecified (2) Chronic kidney disease Chronic kidney disease stage: stage 3 (moderate) Chronic kidney disease stage 3 subtype: unspecified whether 3a or 3b Qualified Code(s): N18.30 - Chronic kidney disease, stage 3 unspecified (3) Cirrhosis Hepatic cirrhosis type: unspecified hepatic cirrhosis Ascites presence: with ascites Qualified Code(s): K74.60 - Unspecified cirrhosis of liver; R18.8 - Other ascites
--- NOTE | 2020-04-11 12:07 | Pharmacy Report ---
Pharmacy Glycemic Sign Off Nt - Date of Service April 11, 2020 - Assessment & Plan ASSESSMENT: * Pharmacy was consulted by Dr Vargas on 04/05/20 for glycemic control and to write orders per [facility] inpatient glycemic control protocol. * Major changes made by pharmacy to antidiabetic regimen include: * discontinuation of Lantus * Alteration of Novolog * Patient has been receiving/requiring ~10 units of insulin per day for adequate glycemic control * BSGs ranging 75 -119 mg/dl * Regimen has only required minor adjustments over the past 48hrs to achieve this level of control * Do not anticipate further changes in patient status that would quickly deteriorate glycemic control (i.e. patient to be NPO for upcoming procedure, steroids tapering, starting tube feedings, etc). * Please see recommendations for outpatient antidiabetic regimen below. PLAN FOR INPATIENT GLYCEMIC CONTROL: No changes needed to current regimen. * No Lantus * Continue NovoLog per scale ACHS/Q6hrs while NPO * Goal range = 110-140 mg/dl * CF = 35 mg/dl/unit * CR = 1 unit for ever 10 g CHO consumed * Pharmacy is signing off of glycemic consult and will no longer be making adjustments to inpatient regimen. Please feel free to re-consult if needed. Thank you. DISCHARGE RECOMMENDATIONS: * A1c 5.1 % on 04/04/20 * Patient is newly started on hemodialysis * Would recommend discontinuation of glipizide as use of sulfonylureas in renal failure is not recommended * Would recommend decreasing Lantus significantly as patient's insulin sensitivity has increased due to initiation of hemodialysis * Could consider 5 units daily with increase of 1 unit every 3 days for fasting BSG > 160 mg/dL.
--- NOTE | 2020-04-11 14:24 | Hospitalist Progress Note ---
Date of Service April 11, 2020 Assessment & Plan (1) Acute metabolic encephalopathy: resolved. Combination of both uremic, metabolic and mild hepatic encephalopathy s/p Lactulose and rifaximin BID. Continue HD for symptomatic uremia/ARF. HOLD lyrica in setting of ARF. Can likely resume next couple of days. Continue abx for foot infection. (2) Acute renal failure (ARF): Baseline Cr about 2 (in 02/2020). Was >6 with markedly elevated BUN at admission. Patient admitted w/ volume overload and uremic symptoms. R IJ temporary HD catheter removed 04/09. Permanent HD catheter placed by Dr Larson 04/09 as well. POD #2. Received HD 04/10. Appreciate nephrology assistance. Next HD session on 04/12/20. (3) Acute uremia: confusion/uremic symptoms resolved appreciate nephrology assistance. wise catheter has been removed. (4) Cellulitis of right toe: MRI w/o signs of osteomyelitis or abscess. Continued improvement IV rocephin and daptomycin changed to oral omnicef & doxycycline 04/10. (5) Mechanical heart valve present: Inserted in 1988, prosthetic aortic valve. INR goal 2.5 to 3.5. INR 3.1 today, 04/11 Daily INR. (6) Hyperlipidemia: Cont Lopid 600 mg QAM (7) Hypertension: Controlled. Metoprolol therapy. (8) Anemia: stool heme+. Stable Hb. Serial labs. Poor candidate for endoscopic eval given clinical status. 04/03 ferritin 120. (9) Cirrhosis: Thought 2nd to CHANG No prior etoh use HepB, C negative No significant ascites on recent ultrasound (10) Hyponatremia: 2nd to ARF Cortisol wnl. Resolved with HD sessions. (11) Diabetes: Since 2019 his a1c's have all been <7%. Hypoglycemia earlier this admission resolved - was likely due to glipizide. Cont Lantus/novolog (12) Gout: Continue allopurinol prophylaxis no flares noted (13) GERD (gastroesophageal reflux disease): Continue Protonix daily (14) Morbid obesity with BMI of 40.0-44.9, adult: BMI 45 (15) Wound of foot: RIGHT great toe/2nd toe webspace along with trauma to right great toe - local wound care stable. MRI negative for underlying osteomyelitis. Now on oral antibiotics (16) Chronic kidney disease: Previously stage 3 with baseline CrCl 30s/40s. Now with superimposed ARF/LINO requiring HD for symptomatic uremia & volume overload. Appreciate Dr Hernandez's consultation. Appreciate critical care and vascular assistance for access. (17) Hx of AKA (above knee amputation): LEFT (18) Hypoglycemia: see discussion above resolved (19) Tinea pedis: right foot ketoconazole cream BID (20) DVT prophylaxis: Coumadin therapy DNR Disposition: Possible discharge to [facility]. PT, OT . Admission and Anticipated Discharge Date Admission Date: April 03, 2020 Subjective Alert. No acute distress. Permacath dialysis catheter was placed April 10. He continues to undergo hemodialysis. Nephrology consultation noted. INR has increased to 3.1 today. Coumadin dosage has been tapered down. IV antibiotics have been switched to oral Omnicef and doxycycline. Awaiting discharge to [facility]. Review of Systems Review of Systems: Constitutional-no fever or chills ENT-no blurred vision, no double vision, no epistaxis, no sore throat Respiratory-no cough, no wheezing, no shortness of breath Cardiac-no palpitations, no chest pain, no syncope GI-no nausea, vomiting, diarrhea, melena, hematochezia -no urinary retention, no urinary incontinence, no dysuria, no hematuria Musculoskeletal-no joint pain, no muscle tenderness Skin-no bruising, no rashes, no pruritus Neuro-no isolated weakness, no paresthesia, no weakness Psych-no depression, no anxiety Physical Exam Physical Exam: General-alert and oriented x3, no fevers, no chills. Morbidly obese HEENT-head atraumatic and normocephalic, TMs intact bilaterally, pupils equal and reactive to light, extraocular muscles intact Neck-no lymphadenopathy or thyromegaly, trachea midline Chest-clear to auscultation percussion. No rales wheezing or rhonchi Cardiac-regular rate and rhythm, normal S1 and S2, no murmurs Abdomen-normal bowel sounds, nontender, no hepatosplenomegaly Extremities-no cyanosis, clubbing, or edema. Remote left AKA status Neuro-cranial nerves II through XII intact, no focal deficits Psych-normal affect, normal mood Results & Data Results & Data ([facility]) Vital Signs (Past 12 Hours) Vital Signs Temp Pulse Resp BP Pulse Ox 04/11/20 11:16 36.4 C L 97 H 20 123/76 96 04/11/20 07:38 36.8 C 96 H 20 115/70 93 04/11/20 03:31 36.0 C L 95 H 16 93/57 L 95 Laboratory Results 04/11/20 06:02 04/11/20 06:02 PG Care Time/CCT Total # of Minutes Spent Total Time Spent with Patient: Total time spent is greater than 50% in bariatric coordinator rdination of care (as documented) at patient's floor/unit and/or counseling patient: Coding Level of Care Code 92793 Subseq Hosp Care Lvl 3 Diagnoses Acute metabolic encephalopathy G93.41 Acute renal failure (ARF) N17.9 Acute renal failure type: unspecified Acute uremia N19 Cellulitis of right toe L03.031 Mechanical heart valve present Z95.2 Hyperlipidemia E78.5 Hyperlipidemia type: unspecified Hypertension I10 Hypertension type: essential hypertension Anemia D64.9 Anemia type: unspecified type Cirrhosis K74.60; R18.8 Hepatic cirrhosis type: unspecified hepatic cirrhosis Ascites presence: with ascites Hyponatremia E87.1 Diabetes E11.42; Z79.4 Diabetes mellitus type: type 2 Diabetes mellitus alf insulin use: with alf use Diabetes mellitus complication status: with neurologic complications Diabetes mellitus complication detail: with polyneuropathy Gout M10.9 Gout site: unspecified site Gout etiology: unspecified cause Chronicity: unspecified GERD (gastroesophageal reflux disease) K21.9 Esophagitis presence: esophagitis presence not specified Morbid obesity with BMI of 40.0-44.9, adult E66.01; Z68.41 Wound of foot S91.309A Chronic kidney disease N18.30 Chronic kidney disease stage: stage 3 (moderate) Chronic kidney disease stage 3 subtype: unspecified whether 3a or 3b Hx of AKA (above knee amputation) Z89.619 Hypoglycemia E16.2 Tinea pedis B35.3 DVT prophylaxis Z29.9 (1) Acute renal failure (ARF) Acute renal failure type: unspecified Qualified Code(s): N17.9 - Acute kidney failure, unspecified (2) Hyperlipidemia Hyperlipidemia type: unspecified Qualified Code(s): E78.5 - Hyperlipidemia, unspecified (3) Hypertension Hypertension type: essential hypertension Qualified Code(s): I10 - Essential (primary) hypertension (4) Anemia Anemia type: unspecified type Qualified Code(s): D64.9 - Anemia, unspecified (5) Cirrhosis Hepatic cirrhosis type: unspecified hepatic cirrhosis Ascites presence: with ascites Qualified Code(s): K74.60 - Unspecified cirrhosis of liver; R18.8 - Other ascites (6) Diabetes Diabetes mellitus type: type 2 Diabetes mellitus terminal gauger insulin use: with alf use Diabetes mellitus complication status: with neurologic complications Diabetes mellitus complication detail: with polyneuropathy Qualified Code(s): E11.42 - Type 2 diabetes mellitus with diabetic polyneuropathy; Z79.4 - terminal operations manager (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 insulin (7) Gout Gout site: unspecified site Gout etiology: unspecified cause Chronicity: unspecified Qualified Code(s): M10.9 - Gout, unspecified (8) GERD (gastroesophageal reflux disease) Esophagitis presence: esophagitis presence not specified Qualified Code(s): K21.9 - Gastro-esophageal reflux disease without esophagitis (9) Chronic kidney disease Chronic kidney disease stage: stage 3 (moderate) Chronic kidney disease stage 3 subtype: unspecified whether 3a or 3b Qualified Code(s): N18.30 - Chronic kidney disease, stage 3 unspecified
[2020-04-11] MEDS: ACETAMINOPHEN 325 MG TAB PO PRN (15:39)
[2020-04-11] MEDS ORDERED: WARFARIN SOD 5 MG TAB PO SCH (16:00)
[2020-04-12] MEDS: LEVOTHYROXINE SODIUM 50 MCG TABLET PO SCH (05:59)
[2020-04-12 06:10] LABS: Basophils # (auto) 0.01 K/uL (0-0.2); Basophils % (auto) 0.1 %; Eosinophils # (auto) 0.09 K/uL (0-0.5); Eosinophils % (auto) 0.8 %; Hematocrit (blood only) 27.6 % (42-52); Hemoglobin 8.3 g/dL (14.0-18.0); Immature Granulocytes # (auto) 0.34 K/uL (0.00-0.02); Lymphocytes # (auto) 1.81 K/uL (1.2-3.4); Lymphocytes % (auto) 16.1 %; Mean Corpuscular Hemoglobin 31.4 pg (25-34); Mean Corpuscular Hgb Conc 30.1 g/dL (32-36); Mean Corpuscular Volume 104.5 fL (80-100); Mean Platelet Volume 11.4 fL (7.4-10.4); Monocytes # (auto) 1.29 K/uL (0.11-0.59); Monocytes % (auto) 11.5 %; Neutrophils # (auto) 7.71 K/uL (1.4-6.5); Neutrophils % (auto) 68.5 %; Platelet Count 425 K/uL (130-400); RDW Coefficient of Variation 21.7 % (11.5-14.5); RDW Standard Deviation 82.5 fL (36.4-46.3); Red Blood Count 2.64 M/uL (4.7-6.1); White Blood Count 11.25 K/uL (4.8-10.8)
[2020-04-12 06:31] LABS: INR 4.5 (0.9-1.1)
[2020-04-12 06:48] LABS: Anisocytosis Present; Basophilic Stippling 1+
[2020-04-12 06:59] LABS: BUN Creatinine Ratio 8.9 (10-20); Calcium 8.7 mg/dl (8.5-10.1); Creatinine Clr Calc Pharmacy 16.4 ml/min; Est GFR (African American) 10.6; Est GFR (Non-African American) 9.2; Potassium 4.2 mmol/L (3.5-5.1)
[2020-04-12] MEDS: gemfibroziL 600 MG TAB PO SCH (08:49)
[2020-04-12] MEDS: CEFDINIR 300 MG CAP PO SCH (08:49)
[2020-04-12] MEDS: PANTOprazole 40 MG TAB PO SCH (08:49)
[2020-04-12] MEDS: ASPIRIN 81 MG ECTAB PO SCH (08:50)
[2020-04-12] MEDS: DOXYCYCLINE HYCLATE 100 MG CAP PO SCH ×2 (08:51→20:37)
[2020-04-12] MEDS: allopurinoL 300 MG TAB PO SCH (08:51)
[2020-04-12] MEDS: ADVANCED PROBIOTIC 1250 MG CAPSULE PO SCH (08:51)
[2020-04-12] MEDS: rifAXIMin 550 MG TABLET PO SCH ×2 (08:51→20:37)
[2020-04-12] MEDS: INSULIN ASPART 100 UNITS/ML 3 ML PEN SC SCH ×4 (08:53→20:53)
[2020-04-12] MEDS: KETOCONAZOLE 2% CR 15 GM TUBE EXT SCH ×2 (08:57→20:37)
[2020-04-12] MEDS: ONDANSETRON INJ 2 MG/ML 2 ML VIAL IV PRN (10:13)
[2020-04-12] MEDS: METOPROLOL TARTRATE 25 MG TAB PO SCH ×2 (11:04→20:36)
[2020-04-12] MEDS: LACTULOSE SYRUP 20 GM/30 ML UDC PO SCH (11:05)
--- NOTE | 2020-04-12 11:29 | Nephrology Progress Note ---
Date of Service April 12, 2020 Assessment & Plan (1) Acute renal failure (ARF): * LINO - ddx includes type I HRS, ATN related to RLE cellulitis/myositis * No evidence of renal recovery * 1st HD treatment 04/05/2019 * Temporary catheter removed and permcath placed 04/10/[address] Larson * Remains on MWF HD * Orders for HD today reviewed with dialysis nurse; 180 optiflux, Qb 300, 3K, UF goal 2.5 L * Mr. Merchant is tolerating HD well * Anticipate next HD Wednesday * If Ross is discharged to [facility], I would be happy to help coordinate continued dialysis (2) Chronic kidney disease: * Baseline Cr 2.0 (3) Wound of foot: * Partial avulsion of R great toe nail * 04/04/20 MRI R foot reveals cellulitis/myositis (4) Cirrhosis: Admission and Anticipated Discharge Date Admission Date: April 03, 2020 Subjective No acute events overnight. Mr. Merchant was seen and evaluated during hemodialysis this AM. He experienced some nausea early during treatment with improvement following Zofran. Reports some constipation. No abdominal pain. Appetite remains poor. Otherwise, tolerating HD well. BP acceptable. UF goal increased today from 2 L to 2.5 L. Anticipated discharge to [facility] discussed. Review of Systems Constitutional: no weight loss, no weight gain and no problem reported Eyes: no problem reported Ear, Nose, Mouth, Throat: no problem reported Respiratory: no problem reported Cardiovascular: no problem reported Gastrointestinal: no problem reported Musculoskeletal: no problem reported Integumentary: no problem reported Neurologic: no problem reported Psychiatric: no problem reported Endocrine: no problem reported Hematologic / Lymphatic: no problem reported Physical Exam Constitutional: well developed and + obese; no acute distress Eyes: no scleral abnormality and no corneal abnormality ENMT: Mouth: no oral mucosal abnormality and oral mucous membranes not dry Neck: normal visual inspection and trachea midline Respiratory: normal respiratory effort Auscultation: lungs clear to ausc ultation bilaterally Cardiovascular: Rate/Rhythm: regular rate Heart Sounds: normal S1 and normal S2 Extremities: + edema Gastrointestinal (Abdomen): Inspection/Auscultation: + abdomen distended Percussion/Palpation: abdomen nontender Musculoskeletal: Extremities: no cyanosis and no clubbing Skin: normal turgor; no lesions Neurologic: Motor/Sensory: no tremor and no asterixis Psychiatric: Orientation: alert and oriented x 3 Results & Data ([facility]) Vital Signs (Past 12 Hours) Vital Signs Temp Pulse Pulse Pulse Resp BP BP 04/12/20 11:00 89 108/54 L 04/12/20 10:40 100 H 102/61 04/12/20 10:20 99 H 110/69 04/12/20 10:00 92 H 116/67 04/12/20 09:40 98 H 121/71 04/12/20 09:26 36.5 C 94 H 97 H 126/75 04/12/20 08:52 35.5 C L 88 20 134/77 04/12/20 03:36 36.4 C L 90 18 114/75 04/11/20 23:34 36.4 C L 87 20 BP Pulse Ox 04/12/20 11:00 04/12/20 10:40 04/12/20 10:20 04/12/20 10:00 04/12/20 09:40 04/12/20 09:26 04/12/20 08:52 04/12/20 03:36 95 04/11/20 23:34 125/81 97 Laboratory Results Laboratory Results - last 24 hr 04/11/20 04/11/20 04/12/20 16:38 20:31 05:26 WBC 11.25 H RBC 2.64 L Hgb 8.3 L Hct 27.6 L MCV 104.5 H MCH 31.4 MCHC 30.1 L RDW Std Deviation 82.5 H RDW Coeff of Jose 21.7 H Plt Count 425 H MPV 11.4 H Immature Gran % (Auto) 3.0 Neut % (Auto) 68.5 Lymph % (Auto) 16.1 Haakon % (Auto) 11.5 Eos % (Auto) 0.8 Baso % (Auto) 0.1 Neut # (Auto) 7.71 H Lymph # (Auto) 1.81 Haakon # (Auto) 1.29 H Eos # (Auto) 0.09 Baso # (Auto) 0.01 Immature Gran # (Auto) 0.34 H Basophilic Stippling 1+ Anisocytosis Present PT INR Sodium Potassium Chloride Carbon Dioxide Anion Gap BUN Creatinine Est Cr Clr Drug Dosing Est GFR ( Amer) Est GFR (Non-Af Amer) BUN/Creatinine Ratio Glucose POC Glucose 122 H 127 H Calcium 04/12/20 04/12/20 04/12/20 05:26 05:26 08:01 WBC RBC Hgb Hct MCV MCH MCHC RDW Std Deviation RDW Coeff of Jose Plt Count MPV Immature Gran % (Auto) Neut % (Auto) Lymph % (Auto) Haakon % (Auto) Eos % (Auto) Baso % (Auto) Neut # (Auto) Lymph # (Auto) Haakon # (Auto) Eos # (Auto) Baso # (Auto) Immature Gran # (Auto) Basophilic Stippling Anisocytosis PT 44.0 H INR 4.5 H Sodium 134 L Potassium 4.2 Chloride 99 Carbon Dioxide 25 Anion Gap 10.0 BUN 49 H Creatinine 5.58 H* D Est Cr Clr Drug Dosing 16.4 Est GFR ( Amer) 10.6 Est GFR (Non-Af Amer) 9.2 BUN/Creatinine Ratio 8.9 L Glucose 96 POC Glucose 102 H Calcium 8.7 PG Care Time/CCT Total # of Minutes Spent Total Time Spent with Patient: Total time spent is greater than 50% in coordination of care (as documented) at patient's floor/unit and/or counseling patient: Coding Level of Care Code 19510 Subseq Hosp Care Lvl 3 Diagnoses Acute renal failure (ARF) N17.9 Acute renal failure type: unspecified Chronic kidney disease N18.30 Chronic kidney disease stage: stage 3 (moderate) Chronic kidney disease stage 3 subtype: unspecified whether 3a or 3b Wound of foot S91.309A Cirrhosis K74.60; R18.8 Hepatic cirrhosis type: unspecified hepatic cirrhosis Ascites presence: with ascites (1) Acute renal failure (ARF) Acute renal failure type: unspecified Qualified Code(s): N17.9 - Acute kidney failure, unspecified (2) Chronic kidney disease Chronic kidney disease stage: stage 3 (moderate) Chronic kidney disease stage 3 subtype: unspecified whether 3a or 3b Qualified Code(s): N18.30 - Chronic k idney disease, stage 3 unspecified (3) Cirrhosis Hepatic cirrhosis type: unspecified hepatic cirrhosis Ascites presence: with ascites Qualified Code(s): K74.60 - Unspecified cirrhosis of liver; R18.8 - Other ascites
--- NOTE | 2020-04-12 14:07 | Hospitalist Progress Note ---
Date of Service April 12, 2020 Assessment & Plan (1) Acute metabolic encephalopathy: resolved. Combination of both uremic, metabolic and mild hepatic encephalopathy s/p Lactulose and rifaximin BID. Continue HD for symptomatic uremia/ARF. Discontinued lyrica. Can likely resume next couple of days. Continue abx for foot infection. (2) Acute renal failure (ARF): Baseline Cr about 2 (in 02/2020). Was >6 with markedly elevated BUN at admission. Patient admitted w/ volume overload and uremic symptoms. R IJ temporary HD catheter removed 04/09. Permanent HD catheter placed by Dr Larson 04/09 as well. POD #3. Received HD 04/10. Appreciate nephrology assistance. HD session today, 04/12/20. (3) Acute uremia: confusion/uremic symptoms resolved appreciate nephrology assistance. wise catheter has been removed. (4) Cellulitis of right toe: MRI w/o signs of osteomyelitis or abscess. Continued improvement IV rocephin and daptomycin changed to oral omnicef & doxycycline 04/10. (5) Mechanical heart valve present: Inserted in 1988, prosthetic aortic valve. INR goal 2.5 to 3.5. INR 4.5 today, 04/12. Coumadin placed on hold Daily INR. (6) Hyperlipidemia: Cont Lopid 600 mg QAM (7) Hypertension: Controlled. Metoprolol therapy. (8) Anemia: stool heme+. Stable Hb. Serial labs. Poor candidate for endoscopic eval given clinical status. 04/03 ferritin 120. (9) Cirrhosis: Thought 2nd to CHANG No prior etoh use HepB, C negative No significant ascites on recent ultrasound (10) Hyponatremia: 2nd to ARF Cortisol wnl. Resolved with HD sessions. (11) Diabetes: Since 2019 his a1c's have all been <7%. Hypoglycemia earlier this admission resolved - was likely due to glipizide. Cont Lantus/novolog (12) Gout: Continue allopurinol prophylaxis no flares noted (13) GERD (gastroesophageal reflux disease): Continue Protonix daily (14) Morbid obesity with BMI of 40.0-44.9, adult: BMI 45 (15) Wound of foot: RIGHT great toe/2nd toe webspace along with trauma to right great toe - local wound care stable. MRI negative for underlying osteomyelitis. Now on oral antibiotics (16) Chronic kidney disease: Previously stage 3 with baseline CrCl 30s/40s. Now with superimposed ARF/LINO requiring HD for symptomatic uremia & volume overload. Appreciate Dr Hernandez's consultation. Appreciate critical care and vascular assistance for access. (17) Hx of AKA (above knee amputation): LEFT (18) Hypoglycemia: see discussion above resolved (19) Tinea pedis: right foot ketoconazole cream BID (20) DVT prophylaxis: Coumadin therapy DNR [facility]position: [facility]. Admission and Anticipated Discharge Date Admission Date: April 03, 2020 Subjective The patient was seen after his return from hemodialysis. No new problems. Hemoglobin stable at 8.3. [facility]. INR elevated at 4.5 today. Coumadin has been placed on hold . Review of Systems Review of Systems: Constitutional-no fever or chills ENT-no blurred vision, no double vision, no epistaxis, no sore throat Respiratory-no cough, no wheezing, no shortness of breath Cardiac-no palpitations, no chest pain, no syncope GI-no nausea, vomiting, diarrhea, melena, hematochezia -no urinary retention, no urinary incontinence, no dysuria, no hematuria Musculoskeletal-no joint pain, no muscle tenderness Skin-no bruising, no rashes, no pruritus Neuro-no isolated weakness, no paresthesia, no weakness Psych-no depression, no anxiety Physical Exam Physical Exam: General-alert and oriented x3, no fevers, no chills HEENT-head atraumatic and normocephalic, TMs intact bilaterally, pupils equal and reactive to light, extraocular muscles intact Neck-no lymphadenopathy or thyromegaly, trachea midline Chest-clear to auscultation percussion. No rales wheezing or rhonchi Cardiac-regular rate and rhythm, normal S1 and S2, no murmurs Abdomen-normal bowel sounds, nontender, no hepatosplenomegaly Extremities-left AKA status. Right lower extremity is edematous with chronic venous stasis changes Neuro-cranial nerves II through XII intact, no focal deficits Psych-normal affect, normal mood Results & Data Results & Data ([facility]) Vital Signs (Past 12 Hours) Vital Signs Temp Pulse Pulse Pulse Resp BP BP 04/12/20 13:19 36.4 C L 93 H 04/12/20 12:40 104 H 118/65 04/12/20 12:20 99 H 117/72 04/12/20 12:00 89 125/93 04/12/20 11:40 95 H 118/63 04/12/20 11:20 82 104/61 04/12/20 11:00 89 108/54 L 04/12/20 10:40 100 H 102/61 04/12/20 10:20 99 H 110/69 04/12/20 10:00 92 H 116/67 04/12/20 09:40 98 H 121/71 04/12/20 09:26 36.5 C 94 H 97 H 126/75 04/12/20 08:52 35.5 C L 88 20 134/77 04/12/20 03:36 36.4 C L 90 18 114/75 BP Pulse Ox 04/12/20 13:19 121/68 04/12/20 12:40 04/12/20 12:20 04/12/20 12:00 04/12/20 11:40 04/12/20 11:20 04/12/20 11:00 04/12/20 10:40 04/12/20 10:20 04/12/20 10:00 04/12/20 09:40 04/12/20 09:26 04/12/20 08:52 04/12/20 03:36 95 Laboratory Results 04/12/20 05:26 04/12/20 05:26 PG Care Time/CCT Total # of Minutes Spent Total Time Spent with Patient: Total time spent is greater than 50% in coordination of care (as documented) at patient's floor/unit and/or counseling patient: Coding Level of Care Code 97413 Subseq Hosp Care Lvl 3 Diagnoses Acute metabolic encephalopathy G93.41 Acute renal failure (ARF) N17.9 Acute renal failure type: unspecified Acute uremia N19 Cellulitis of right toe L03.031 Mechanical heart valve present Z95.2 Hyperlipidemia E78.5 Hyperlipidemia type: unspecified Hypertension I10 Hypertension type: essential hypertension Anemia D64.9 Anemia type: unspecified type Cirrhosis K74.60; R18.8 Hepatic cirrhosis type: unspecified hepatic cirrhosis Ascites presence: with ascites Hyponatremia E87.1 Diabetes E11.42; Z79.4 Diabetes mellitus type: type 2 Diabetes mellitus detention insulin use: with detention use Diabetes mellitus complication status: with neurologic complications Diabetes mellitus complication detail: with polyneuropathy Gout M10.9 Gout site: unspecified site Gout etiology: unspecified cause Chronicity: unspecified GERD (gastroesophageal reflux disease) K21.9 Esophagitis presence: esophagitis presence not specified Morbid obesity with BMI of 40.0-44.9, adult E66.01; Z68.41 Wound of foot S91.309A Chronic kidney disease N18.30 Chronic kidney disease stage: stage 3 (moderate) Chronic kidney disease stage 3 subtype: unspecified whether 3a or 3b Hx of AKA (above knee amputation) Z89.619 Hypoglycemia E16.2 Tinea pedis B35.3 DVT prophylaxis Z29.9 (1) Acute renal failure (ARF) Acute renal failure type: unspecified Qualified Code(s): N17.9 - Acute kidney failure, unspecified (2) Hyperlipidemia Hyperlipidemia type: unspecified Qualified Code(s): E78.5 - Hyperlipidemia, unspecified (3) Hypertension Hypertension type: essential hypertension Qualified Code(s): I10 - Essential (primary) hypertension (4) Anemia Anemia type: unspecified type Qualified Code(s): D64.9 - Anemia, unspecified (5) Cirrhosis Hepatic cirrhosis type: unspecified hepatic cirrhosis Ascites presence: with ascites Qualified Code(s): K74.60 - Unspecified cirrhosis of liver; R18.8 - Other ascites (6) Diabetes Diabetes mellitus type: type 2 Diabetes mellitus medical terminologist insulin use: with medical terminologist use Diabetes mellitus complication status: with neurologic complications Diabetes mellitus complication detail: with polyneuropathy Qualified Code(s): E11.42 - Type 2 diabetes mellitus with diabetic polyneuropathy; Z79.4 - medical terminologist (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 insulin (7) Gout Gout site: unspecified site Gout etiology: unspecified cause Chronicity: unspecified Qualified Code(s): M10.9 - Gout, unspecified (8) GERD (gastroesophageal reflux disease) Esophagitis presence: esophagitis presence not specified Qualified Code(s): K21.9 - Gastro-esophageal reflux disease without esophagitis (9) Chronic kidney disease Chronic kidney disease stage: stage 3 (moderate) Chronic kidney disease stage 3 subtype: unspecified whether 3a or 3b Qualified Code(s): N18.30 - Chronic kidney disease, stage 3 unspecified
[2020-04-12] MEDS: ACETAMINOPHEN 325 MG TAB PO PRN (20:36)
[2020-04-13] MEDS: LEVOTHYROXINE SODIUM 50 MCG TABLET PO SCH (05:57)
[2020-04-13 06:30] LABS: Basophils # (auto) 0.01 K/uL (0-0.2); Basophils % (auto) 0.1 %; Eosinophils # (auto) 0.09 K/uL (0-0.5); Eosinophils % (auto) 0.9 %; Hematocrit (blood only) 28.1 % (42-52); Hemoglobin 8.7 g/dL (14.0-18.0); Immature Granulocytes # (auto) 0.28 K/uL (0.00-0.02); Immature Granulocytes % (auto) 2.8 %; Lymphocytes # (auto) 1.48 K/uL (1.2-3.4); Lymphocytes % (auto) 14.7 %; Mean Corpuscular Hemoglobin 32.3 pg (25-34); Mean Corpuscular Volume 104.5 fL (80-100); Mean Platelet Volume 11.1 fL (7.4-10.4); Monocytes # (auto) 0.84 K/uL (0.11-0.59); Monocytes % (auto) 8.3 %; Neutrophils # (auto) 7.37 K/uL (1.4-6.5); Neutrophils % (auto) 73.2 %; Platelet Count 442 K/uL (130-400); RDW Coefficient of Variation 21.3 % (11.5-14.5); RDW Standard Deviation 81.2 fL (36.4-46.3); Red Blood Count 2.69 M/uL (4.7-6.1); White Blood Count 10.07 K/uL (4.8-10.8)
[2020-04-13 06:54] LABS: Anisocytosis Present; Basophilic Stippling 1+
[2020-04-13 07:04] LABS: INR 5.5 (0.9-1.1); Prothrombin Time 52.5 Seconds (9.0-12.0)
[2020-04-13 07:17] LABS: BUN Creatinine Ratio 7.2 (10-20); Calcium 9.1 mg/dl (8.5-10.1); Creatinine Clr Calc Pharmacy 20.6 ml/min; Est GFR (African American) 14.2; Est GFR (Non-African American) 12.2; Potassium 4.1 mmol/L (3.5-5.1)
[2020-04-13] MEDS: METOPROLOL TARTRATE 25 MG TAB PO SCH ×2 (09:07→20:46)
[2020-04-13] MEDS: CEFDINIR 300 MG CAP PO SCH (09:07)
[2020-04-13] MEDS: gemfibroziL 600 MG TAB PO SCH (09:07)
[2020-04-13] MEDS: ASPIRIN 81 MG ECTAB PO SCH (09:07)
[2020-04-13] MEDS: PANTOprazole 40 MG TAB PO SCH (09:08)
[2020-04-13] MEDS: ADVANCED PROBIOTIC 1250 MG CAPSULE PO SCH (09:08)
[2020-04-13] MEDS: allopurinoL 300 MG TAB PO SCH (09:08)
[2020-04-13] MEDS: INSULIN ASPART 100 UNITS/ML 3 ML PEN SC SCH ×4 (09:08→21:12)
[2020-04-13] MEDS: DOXYCYCLINE HYCLATE 100 MG CAP PO SCH ×2 (09:08→20:46)
[2020-04-13] MEDS: rifAXIMin 550 MG TABLET PO SCH ×2 (09:08→20:47)
[2020-04-13] MEDS: LACTULOSE SYRUP 20 GM/30 ML UDC PO SCH (09:10)
[2020-04-13] MEDS: KETOCONAZOLE 2% CR 15 GM TUBE EXT SCH ×2 (09:14→20:46)
--- NOTE | 2020-04-13 09:43 | Nephrology Progress Note ---
Date of Service April 13, 2020 Assessment & Plan (1) Acute renal failure (ARF): * LINO - c/w ATN related to RLE cellulitis/myositis * No evidence of renal recovery * 1st HD treatment 04/05/2019 * Temporary catheter removed and permcath placed 04/10/[address] Larson * Volume status and electrolyte balance are acceptable. No acute indication for HD today. Will reassess in am (2) Chronic kidney disease: * Baseline Cr 2.0 (3) Wound of foot: * Partial avulsion of R great toe nail * 04/04/20 MRI R foot revealed cellulitis/myositis (4) Cirrhosis: * Improved HE Admission and Anticipated Discharge Date Admission Date: April 03, 2020 Subjective Mr. Merchant was seen & examined in his hospital room this morning. He currently denies fever, angina or dyspnea. He notes that his RLE swelling has improved. Mr. Merchant was dialyzed yesterday for 2.5 L UF. R IJ THC functioned well. There were no complications recorded. Review of Systems Constitutional: + weakness; no fever Eyes: no problem reported Ear, Nose, Mouth, Throat: no problem reported Respiratory: no cough and no dyspnea Cardiovascular: + edema; no chest pain and no palpitations Gastrointestinal: no abdominal pain, no vomiting and no diarrhea/loose stools Neurologic: no dizziness and no confusion Physical Exam Constitutional: + obese (chronically ill appearing) Eyes: PERRL, conjunctivae normal, anicteric sclerae ENMT: external ear and nose normal, oropharynx normal Neck: trachea midline, no thyromegaly Respiratory: normal respiratory effort, lungs clear to auscultation Cardiovascular: Rate/Rhythm: regular rate and regular rhythm Extremities: + edema (RLE 1+ pretibial pitting edema, L AKA) Gastrointestinal (Abdomen): normal bowel sounds, soft, nontender, no hepato splenomegaly Musculoskeletal: Extremities: no cyanosis (R foot bandaged) Results & Data ([facility]) Vital Signs (Past 12 Hours) Vital Signs Temp Pulse Pulse Resp BP BP Pulse Ox 04/13/20 07:43 36.4 C L 97 H 20 101/64 95 04/13/20 07:24 106 H 04/13/20 03:44 36.7 C 102 H 18 109/71 95 04/12/20 23:59 96 H 04/12/20 23:21 36.3 C L 107 H 18 123/76 92 Laboratory Tests 04/13/20 04/13/20 06:01 06:02 WBC 10.07 Hgb 8.7 L Hct 28.1 L Plt Count 442 H Sodium 136 Potassium 4.1 Chloride 102 Carbon Dioxide 25 BUN 32 H Creatinine 4.40 H D Glucose 90 Calcium 9.1 PG Care Time/CCT Total # of Minutes Spent Total Time Spent with Patient: Total time spent is greater than 50% in coordination of care (as documented) at patient's floor/unit and/or counseling patient: Coding Level of Care Code 90557 Subseq Hosp Care Lvl 3 Diagnoses Acute renal failure (ARF) N17.9 Acute renal failure type: unspecified Chronic kidney disease N18.30 Chronic kidney disease stage: stage 3 (moderate) Chronic kidney disease stage 3 subtype: unspecified whether 3a or 3b Wound of foot S91.309A Cirrhosis K74.60; R18.8 Hepatic cirrhosis type: unspecified hepatic cirrhosis Ascites presence: with ascites (1) Acute renal failure (ARF) Acute renal failure type: unspecified Qualified Code(s): N17.9 - Acute kidney failure, unspecified (2) Chronic kidney disease Chronic kidney disease stage: stage 3 (moderate) Chronic kidney disease stage 3 subtype: unspecified whether 3a or 3b Qualified Code(s): N18.30 - Chronic kidney disease, stage 3 unspecified (3) Cirrhosis Hepatic cirrhosis type: unspecified hepatic cirrhosis Ascites presence: with ascites Qualified Code(s): K74.60 - Unspecified cirrhosis of liver; R18.8 - Other ascites
--- NOTE | 2020-04-13 22:56 | Hospitalist Progress Note ---
Date of Service April 13, 2020 Assessment & Plan (1) Acute metabolic encephalopathy: resolved. Combination of both uremic, metabolic and mild hepatic encephalopathy s/p Lactulose and rifaximin BID. Continue HD for symptomatic uremia/ARF. Discontinued lyrica. Can likely resume next couple of days. Continue abx for foot infection. Awaiting bed placement (2) Acute renal failure (ARF): Baseline Cr about 2 (in 02/2020). Was >6 with markedly elevated BUN at admission. Patient admitted w/ volume overload and uremic symptoms. R IJ temporary HD catheter removed 04/09. Permanent HD catheter placed by Dr Larson 04/09 as well. POD #3. Received HD 04/10, 04/12 Appreciate nephrology assistance. (3) Acute uremia: confusion/uremic symptoms resolved appreciate nephrology assistance. wise catheter has been removed. (4) Cellulitis of right toe: MRI w/o signs of osteomyelitis or abscess. Continued improvement IV rocephin and daptomycin changed to oral omnicef & doxycycline 04/10. (5) Mechanical heart valve present: Inserted in 1988, prosthetic aortic valve. INR goal 2.5 to 3.5. INR supratherapuetic. Coumadin placed on hold Daily INR. (6) Hyperlipidemia: Cont Lopid 600 mg QAM (7) Hypertension: Controlled. Metoprolol therapy. (8) Anemia: stool heme+. Stable Hb. Serial labs. Poor candidate for endoscopic eval given clinical status. 04/03 ferritin 120. (9) Cirrhosis: Thought 2nd to CHANG No prior etoh use HepB, C negative No significant ascites on recent ultrasound (10) Hyponatremia: 2nd to ARF Cortisol wnl. Resolved with HD sessions. (11) Diabetes: Since 2019 his a1c's have all been <7%. Hypoglycemia earlier this admission resolved - was likely due to glipizide. Cont Lantus/novolog (12) Gout: Continue allopurinol prophylaxis no flares noted (13) GERD (gastroesophageal reflux disease): Continue Protonix daily (14) Morbid obesity with BMI of 40.0-44.9, adult: BMI 45 (15) Wound of foot: RIGHT great toe/2nd toe webspace along with trauma to right great toe - local wound care stable. MRI negative for underlying osteomyelitis. Now on oral antibiotics (16) Chronic kidney disease: Previously stage 3 with baseline CrCl 30s/40s. Now with superimposed ARF/LINO requiring HD for symptomatic uremia & volume overload. Appreciate Dr Hernandez's consultation. Appreciate critical care and vascular assistance for access. (17) Hx of AKA (above knee amputation): LEFT (18) Hypoglycemia: see discussion above resolved (19) Tinea pedis: right foot ketoconazole cream BID (20) DVT prophylaxis: Coumadin therapy DNR [facility] Admission and Anticipated Discharge Date Admission Date: April 03, 2020 Subjective Patient reports feeling well and has no new complaints at this time. Review of Systems Review of Systems: All systems reviewed & are unremarkable except as noted in HPI & below Physical Exam Physical Exam: General-alert and oriented x3, no fevers, no chills HEENT-head atraumatic and normocephalic, TMs intact bilaterally, pupils equal and reactive to light, extraocular muscles intact Neck-no lymphadenopathy or thyromegaly, trachea midline Chest-clear to auscultation percussion. No rales wheezing or rhonchi Cardiac-regular rate and rhythm, normal S1 and S2, no murmurs Abdomen-normal bowel sounds, nontender, no hepatosplenomegaly Extremities-left AKA status. Right lower extremity is edematous with chronic venous stasis changes Neuro-cranial nerves II through XII intact, no focal deficits Psych-normal affect, normal mood Results & Data Results & Data ([facility]) Vital Signs (Past 12 Hours) Vital Signs Temp Pulse Pulse Resp BP BP Pulse Ox 04/13/20 19:19 36.6 C 101 H 18 115/76 96 04/13/20 16:04 99 H 04/13/20 16:00 36.4 C L 100 H 16 117/75 95 04/13/20 11:55 36.7 C 87 18 161/64 H 97 PG Care Time/CCT Total # of Minutes Spent Total Time Spent with Patient: Total time spent is greater than 50% in coordination of care (as documented) at patient's floor/unit and/or counseling patient: Coding Level of Care Code 43249 Subseq Hosp Care Lvl 3 Diagnoses Acute metabolic encephalopathy G93.41 Acute renal failure (ARF) N17.9 Acute renal failure type: unspecified Acute uremia N19 Cellulitis of right toe L03.031 Mechanical heart valve present Z95.2 Hyperlipidemia E78.5 Hyperlipidemia type: unspecified Hypertension I10 Hypertension type: essential hypertension Anemia D64.9 Anemia type: unspecified type Cirrhosis K74.60; R18.8 Ascites presence: with ascites Hepatic cirrhosis type: unspecified hepatic cirrhosis Hyponatremia E87.1 Diabetes E11.42; Z79.4 Diabetes mellitus complication detail: with polyneuropathy Diabetes mellitus complication status: with neurologic complications Diabetes mellitus long term care pharmacist insulin use: with intermediate use Diabetes mellitus type: type 2 Gout M10.9 Chronicity: unspecified Gout etiology: unspecified cause Gout site: unspecified site GERD (gastroesophageal reflux disease) K21.9 Esophagitis presence: esophagitis presence not specified Morbid obesity with BMI of 40.0-44.9, adult E66.01; Z68.41 Wound of foot S91.309A Chronic kidney disease N18.30 Chronic kidney disease stage: stage 3 (moderate) Chronic kidney disease stage 3 subtype: unspecified whether 3a or 3b Hx of AKA (above knee amputation) Z89.619 Hypoglycemia E16.2 Tinea pedis B35.3 DVT prophylaxis Z29.9 Time Spent (min) 35 (1) Diabetes Diabetes mellitus complication detail: with polyneuropathy Diabetes mellitus complication status: with neurologic complications Diabetes mellitus intermediate insulin use: with long term care pharmacist use Diabetes mellitus type: type 2 Qualified Code(s): E11.42 - Type 2 diabetes mellitus with diabetic polyneuropathy; Z79.4 - prison (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 insulin (2) Gout Chronicity: unspecified Gout etiology: unspecified cause Gout site: unspecified site Qualified Code(s): M10.9 - Gout, unspecified (3) Acute renal failure (ARF) Acute renal failure type: unspecified Qualified Code(s): N17.9 - Acute kidney failure, unspecified (4) Anemia Anemia type: unspecified type Qualified Code(s): D64.9 - Anemia, unspecified (5) Hyperlipidemia Hyperlipidemia type: unspecified Qualified Code(s): E78.5 - Hyperlipidemia, unspecified (6) Cirrhosis Ascites presence: with ascites Hepatic cirrhosis type: unspecified hepatic cirrhosis Qualified Code(s): K74.60 - Unspecified cirrhosis of liver; R18.8 - Other ascites (7) Chronic kidney disease Chronic kidney disease stage: stage 3 (moderate) Chronic kidney disease stage 3 subtype: unspecified whether 3a or 3b Qualified Code(s): N18.30 - Chronic kidney disease, stage 3 unspecified (8) GERD (gastroesophageal reflux disease) Esophagitis presence: esophagitis presence not specified Qualified Code(s): K21.9 - Gastro-esophageal reflux disease without esophagitis (9) Hypertension Hypertension type: essential hypertension Qualified Code(s): I10 - Essential (primary) hypertension
[2020-04-14] MEDS: LEVOTHYROXINE SODIUM 50 MCG TABLET PO SCH (05:56)
[2020-04-14 07:02] LABS: Hematocrit (blood only) 28.9 % (42-52); Hemoglobin 8.5 g/dL (14.0-18.0); Mean Corpuscular Hemoglobin 30.9 pg (25-34); Mean Corpuscular Hgb Conc 29.4 g/dL (32-36); Mean Corpuscular Volume 105.1 fL (80-100); Mean Platelet Volume 11.1 fL (7.4-10.4); Platelet Count 497 K/uL (130-400); RDW Coefficient of Variation 21.2 % (11.5-14.5); RDW Standard Deviation 81.6 fL (36.4-46.3); Red Blood Count 2.75 M/uL (4.7-6.1); White Blood Count 11.17 K/uL (4.8-10.8)
[2020-04-14 07:14] LABS: INR 4.4 (0.9-1.1); Prothrombin Time 42.4 Seconds (9.0-12.0)
[2020-04-14 07:22] LABS: Anisocytosis Present; Basophilic Stippling Occasional; Basophils # (auto) 0.02 K/uL (0-0.2); Basophils % (auto) 0.2 %; Eosinophils # (auto) 0.11 K/uL (0-0.5); Immature Granulocytes # (auto) 0.23 K/uL (0.00-0.02); Immature Granulocytes % (auto) 2.1 %; Lymphocytes # (auto) 1.84 K/uL (1.2-3.4); Lymphocytes % (auto) 16.5 %; Monocytes # (auto) 0.99 K/uL (0.11-0.59); Monocytes % (auto) 8.9 %; Neutrophils # (auto) 7.98 K/uL (1.4-6.5); Neutrophils % (auto) 71.3 %
[2020-04-14 07:47] LABS: BUN Creatinine Ratio 7.4 (10-20); Creatinine Clr Calc Pharmacy 17.4 ml/min; Est GFR (African American) 11.5; Est GFR (Non-African American) 9.9; Potassium 4.3 mmol/L (3.5-5.1)
[2020-04-14] MEDS: INSULIN ASPART 100 UNITS/ML 3 ML PEN SC SCH (08:25)
[2020-04-14] MEDS: ASPIRIN 81 MG ECTAB PO SCH (08:26)
[2020-04-14] MEDS: gemfibroziL 600 MG TAB PO SCH (08:26)
[2020-04-14] MEDS: METOPROLOL TARTRATE 25 MG TAB PO SCH (08:27)
[2020-04-14] MEDS: KETOCONAZOLE 2% CR 15 GM TUBE EXT SCH (08:27)
[2020-04-14] MEDS: ADVANCED PROBIOTIC 1250 MG CAPSULE PO SCH (08:28)
[2020-04-14] MEDS: CEFDINIR 300 MG CAP PO SCH (08:28)
[2020-04-14] MEDS: DOXYCYCLINE HYCLATE 100 MG CAP PO SCH (08:29)
[2020-04-14] MEDS: rifAXIMin 550 MG TABLET PO SCH (08:29)
[2020-04-14] MEDS: allopurinoL 300 MG TAB PO SCH (08:29)
[2020-04-14] MEDS: PANTOprazole 40 MG TAB PO SCH (08:29)
[2020-04-14] MEDS: LACTULOSE SYRUP 20 GM/30 ML UDC PO SCH (09:13)
--- NOTE | 2020-04-14 10:31 | Nephrology Progress Note ---
Date of Service April 14, 2020 Assessment & Plan (1) Acute renal failure (ARF): * LINO - c/w ATN related to RLE cellulitis/myositis * No evidence of renal recovery. Creatinine continues to trend up in between HD treatments * 1st HD treatment 04/05/2019 * Temporary catheter removed and permcath placed 04/10/[address] Larson * Volume status and electrolyte balance are acceptable. No acute indication for HD today. Will reassess in am * Orders for HD at [facility] provided to the director fundraising in anticipation of transfer later today (2) Chronic kidney disease: * Baseline Cr 2.0 (3) Wound of foot: * Partial avulsion of R great toe nail * 04/04/20 MRI R foot revealed cellulitis/myositis (4) Cirrhosis: * Improved HE Admission and Anticipated Discharge Date Admission Date: April 03, 2020 Subjective Mr. Merchant was seen & examined in his hospital room this morning. He currently denies fever, angina or dyspnea. He notes that his RLE swelling has improved. Mr. Merchant is hopeful to transfer to [facility] and begin physical therapy Review of Systems Constitutional: + weakness; no fever Eyes: no problem reported Ear, Nose, Mouth, Throat: no problem reported Respiratory: no cough and no dyspnea Cardiovascular: + edema; no chest pain and no palpitations Gastrointestinal: no abdominal pain, no vomiting and no diarrhea/loose stools Musculoskeletal: no back pain Integumentary: no rash Neurologic: no dizziness Physical Exam Constitutional: + obese (chronically ill appearing) Eyes: PERRL, conjunctivae normal, anicteric sclerae ENMT: external ear and nose normal, oropharynx normal Neck: trachea midline, no thyromegaly Respiratory: normal respiratory effort, lungs clear to auscultation Cardiovascular: Rate/Rhythm: regular rate and regular rhythm Extremities: + edema (RLE 1+ pretibial pitting edema, L AKA) Gastrointestinal (Abdomen): normal bowel sounds, soft, nontender, no hepatosplenomegaly Musculoskeletal: Extremities: no cyanosis (R foot bandaged) Results & Data ([facility]) Vital Signs (Past 12 Hours) Vital Signs Temp Pulse Pulse Resp BP BP Pulse Ox 04/14/20 07:38 36.8 C 90 20 115/72 96 04/14/20 03:38 36.3 C L 96 H 18 103/57 L 96 01/10/21 00:40 96 H 04/13/20 23:20 36.5 C 101 H 20 114/73 96 Laboratory Tests 04/14/20 04/14/20 06:04 06:04 WBC 11.17 H Hgb 8.5 L Hct 28.9 L Plt Count 497 H Sodium 136 Potassium 4.3 Chloride 102 Carbon Dioxide 24 BUN 39 H Creatinine 5.22 H* D Glucose 92 PG Care Time/CCT Total # of Minutes Spent Total Time Spent with Patient: Total time spent is greater than 50% in coordination of care (as documented) at patient's floor/unit and/or counseling patient: Coding Level of Care Code 21971 Subseq Hosp Care Lvl 3 Diagnoses Acute renal failure (ARF) N17.9 Acute renal failure type: unspecified Chronic kidney disease N18.30 Chronic kidney disease stage: stage 3 (moderate) Chronic kidney disease stage 3 subtype: unspecified whether 3a or 3b Wound of foot S91.309A Cirrhosis K74.60; R18.8 Hepatic cirrhosis type: unspecified hepatic cirrhosis Ascites presence: with ascites (1) Acute renal failure (ARF) Acute renal failure type: unspecified Qualified Code(s): N17.9 - Acute kidney failure, unspecified (2) Chronic kidney disease Chronic kidney disease stage: stage 3 (moderate) Chronic kidney disease stage 3 subtype: unspecified whether 3a or 3b Qualified Code(s): N18.30 - Chronic kidney disease, stage 3 unspecified (3) Cirrhosis Hepatic cirrhosis type: unspecified hepatic cirrhosis Ascites presence: with ascites Qualified Code(s): K74.60 - Unspecified cirrhosis of liver; R18.8 - Other ascites
--- NOTE | 2020-04-21 13:26 | Discharge Summary ---
Date of Service April 14, 2020 Admission HPI Per Admitting Provider This is a 74-year-old male with PMHx of chronic diastolic CHF, mechanical valve on Coumadin, HTN, HLD, COPD, DM type II, morbid obesity, cirrhosis, hepatic encephalopathy, hyperammonemia, CKD stage III, AKA of left leg, Gout, GERD, who presents to the ER after being sent by PCP. The patient's took the patient to his PCP this morning to discuss Xifaxin medication for cirrhosis, however once there was send to the ER for feeling unwell, decreased urine output. Pt notes that he voided 200 mL at midnight last night, and then 100 mL this morning after waking up. He did not eat or drink anything today, and was more swollen in his R leg, left thigh, and pt reports feeling "dopey" for the past 2 weeks. He was just discharged home from [facility] yesterday. PT noted to have elevated Cr of 5.94 with hyponatremia 130, Hgb is decreased to 8.7, HCT 28.3, alk phos 183, BNP 49026. He has not yet provided a urine sample, will plan to have straight cath obtained now. Pt is complaining of pain on his butt, report he does not walk at baseline, uses motorized scooter Principal Diagnosis Acute metabolic encephalopathy Discharge Exam General-alert and oriented x3, no fevers, no chills HEENT-head atraumatic and normocephalic, TMs intact bilaterally, pupils equal and reactive to light, extraocular muscles intact Neck-no lymphadenopathy or thyromegaly, trachea midline Chest-clear to auscultation percussion. No rales wheezing or rhonchi Cardiac-regular rate and rhythm, normal S1 and S2, no murmurs Abdomen-normal bowel sounds, nontender, no hepatosplenomegaly Extremities-left AKA status. Right lower extremity is edematous with chronic venous stasis changes Neuro-cranial nerves II through XII intact, no focal deficits Psych-normal affect, normal mood Discharge Data Allergies Allergy/AdvReac Type Severity Reaction Status Date / Time enoxaparin Allergy Unknown Illness Verified 04/03/20 17:25 morphine Allergy Unknown Unknown Verified 04/03/20 17:26 adhesive AdvReac Unknown SORES WITH Verified 04/03/20 17:26 "SOME TAPE" oxycodone AdvReac Unknown HALLUCINATI Verified 04/03/20 17:26 ONS Consultations 04/03/20 15:38 ED Decision to Admit Stat 04/03/20 19:35 Consult Case Management - Discharge Planning Routine Consult Gastroenterology Routine Consult Nephrology Routine 04/05/20 08:30 Consult Assistant Professor Surgical Technology Routine 04/05/20 10:08 Consult Case Management - Discharge Planning Routine 04/09/20 08:46 Consult Vascular Surgery Routine 04/09/20 09:31 Consult Psychiatry Routine Procedures Performed Operation Date: 04/10/20 07:00 Actual Procedures p Insertion Of Perm Catheter, Right Internal Jugular Approach, Ultrasound Localization Of Right Internal Jugular Vein, Fluoroscopy For Positioning, Removal Of Temporary Catheter(Right) - Juan Larson MD Ordered Studies 04/04/20 13:30 US abdomen ltd ascites Routine 04/04/20 14:00 US renal/blad retro comp Routine 04/04/20 17:57 MR foot RT w/o con Routine 04/05/20 12:51 US point of care ultrasound Urgent 04/10/20 07:15 EV cvc insrt tunnel wo prt/manager change Routine US EV guide vascular access Routine Hospital Course (1) Acute metabolic encephalopathy: resolved. Combination of both uremic, metabolic and mild hepatic encephalopathy s/p Lactulose and rifaximin BID. Continue HD for symptomatic uremia/ARF. Continue abx for foot infection. will discharge patient on cefdinir and doxycycline to complete course. (2) Acute renal failure (ARF): Baseline Cr about 2 (in 02/2020). Was >6 with markedly elevated BUN at admission. Patient admitted w/ volume overload and uremic symptoms. R IJ temporary HD catheter removed 04/09. Permanent HD catheter placed by Dr Larson 04/09 as well. POD #3. Received HD 04/10, 04/12 Appreciate nephrology assistance. will continue HD as an outpatient as per Nephro. (3) Acute uremia: confusion/uremic symptoms resolved appreciate nephrology assistance. wise catheter has been removed. (4) Cellulitis of right toe: MRI w/o signs of osteomyelitis or abscess. Continued improvement IV rocephin and daptomycin changed to oral omnicef & doxycycline 04/10. (5) Mechanical heart valve present: Inserted in 1988, prosthetic aortic valve. INR goal 2.5 to 3.5. INR supratherapuetic. coumadin order was placed, and will recheck as outpatient. (6) Hyperlipidemia: Cont Lopid 600 mg QAM (7) Hypertension: Controlled. Metoprolol therapy. (8) Anemia: stool heme+. Stable Hb. Serial labs. Poor candidate for endoscopic eval given clinical status. 04/03 ferritin 120. (9) Cirrhosis: Thought 2nd to CHANG No prior etoh use HepB, C negative No significant ascites on recent ultrasound (10) Hyponatremia: 2nd to ARF Cortisol wnl. Resolved with HD sessions. (11) Diabetes: Since 2019 his a1c's have all been <7%. Hypoglycemia earlier this admission resolved - was likely due to glipizide. Cont Lantus/novolog (12) Gout: Continue allopurinol prophylaxis no flares noted (13) GERD (gastroesophageal reflux disease): Continue Protonix daily (14) Morbid obesity with BMI of 40.0-44.9, adult: BMI 45 (15) Wound of foot: RIGHT great toe/2nd toe webspace along with trauma to right great toe - local wound care stable. MRI negative for underlying osteomyelitis. Now on oral antibiotics (16) Chronic kidney disease: Previously stage 3 with baseline CrCl 30s/40s. Now with superimposed ARF/LINO requiring HD for symptomatic uremia & volume overload. Appreciate Dr Hernandez's consultation. Appreciate critical care and vascular assistance for access. (17) Hx of AKA (above knee amputation): LEFT (18) Hypoglycemia: see discussion above resolved (19) Tinea pedis: right foot ketoconazole cream BID (20) DVT prophylaxis: Coumadin therapy DNR Total Time Total Time Spent Total Time Spent (In Minutes): 32 Total Time Includes: Examination of the Patient, Discharge Planning and Medication Reconciliation Discharge Plan Discharge Items Patient Disposition: Transfer Inpatient Rehab Fac Reason For Visit: RENAL FAILURE,CIRRHOSIS Discharge Diagnosis: cirrhosis Activity: Resume your previous activity Non-emergency contact: Primary Care Provider Call non-emergency contact if: you have any medication questions Follow-up/Referrals: Leonel Manriquez MD [Primary Care Provider] - Mic Barton [Physician] - (See Dr Barton or Sofía within 2 weeks of Discharge ) Diet: Carb Consistent or DM2 Fluids: 1500ml (6 cups) Diet Comment: minced and moist Addtl Attending Provider Instructions: recommend followup with PCP in 1-2 weeks Check INR in 3 days Pending Studies at Discharge: No Stand-Alone Forms: My [facility] Skilled Items Patient informed of condition?: No DNR: Yes Discharge Level of Care: Skilled Communicable Disease: No Discharge Prognosis: Stable Lines: PICC Urinary Catheter: No Medications and DC Order Prescriptions: New cefdinir 300 mg Capsule 300 mg PO DAILY Qty: 5 RF: 0 metoprolol tartrate 25 mg Tablet 25 mg PO BID Qty: 60 RF: 0 lactulose 20 gram/30 mL Solution 20 g PO DAILY PRN (Reason: 2 BM daily for 3 months) Qty: 3000 RF: 0 doxycycline hyclate 100 mg Capsule 100 mg PO BID Qty: 10 RF: 0 Continued furosemide [Lasix] 40 mg tablet 80 mg PO BID RF: 0 Lantus Solostar U-100 Insulin 100 unit/mL (3 mL) insulin pen 15 unit subcut DAILY@2100 RF: 0 glipizide [Glucotrol] 10 mg tablet 10 mg PO BID RF: 0 gemfibrozil [Lopid] 600 mg tablet 600 mg PO QAM RF: 0 pantoprazole [Protonix] 40 mg tablet,delayed release (DR/EC) 40 mg PO QAM RF: 0 allopurinol [Zyloprim] 300 mg tablet 300 mg PO QAM RF: 0 aspirin [Ecotrin Low Strength] 81 mg Tablet,Delayed Release (Dr/Ec) 81 mg PO QAM Qty: 30 RF: 0 pregabalin 50 mg capsule 50 mg PO BID RF: 0 levothyroxine 50 mcg tablet 50 mcg PO QAM RF: 0 Changed warfarin 5 mg tablet 2.5 mg PO 4XWK Qty: 0 RF: 0 warfarin 5 mg tablet 5 mg PO 3XWK Qty: 0 RF: 0 Discontinued metoprolol tartrate 100 mg tablet 100 mg PO BID RF: 0 Discharge Orders: Discharge Order (Routine); Ordered 04/14/20 Ordered By: Italo Barton/Other Patient Handouts: High Blood Sugar (Hyperglycemia), Hypoglycemia (Low Blood Sugar), Managing Type 2 Diabetes Admission Data Admit Date/Time: 04/03/20 16:56 Attending Provider: Italo Hogan Admit Provider: Mejia Antoine Primary Care Provider: Leonel Manriquez Other Providers: Mejia Antoine ; Hernandez Bain ; Lauro Gore ; [facility] ; Alfei Bass ; Juan Larson ; Alina Che Other Interventions: Discharge Summary Assessment (RN) Last Done: 04/14/20 11:25 Coding Level of Care Code D/C Day Management >30 mins Diagnoses Acute metabolic encephalopathy G93.41 Acute renal failure (ARF) N17.9 Acute renal failure type: unspecified Acute uremia N19 Cellulitis of right toe L03.031 Mechanical heart valve present Z95.2 Hyperlipidemia E78.5 Hyperlipidemia type: unspecified Hypertension I10 Hypertension type: essential hypertension Anemia D64.9 Anemia type: unspecified type Cirrhosis K74.60; R18.8 Hepatic cirrhosis type: unspecified hepatic cirrhosis Ascites presence: with ascites Hyponatremia E87.1 Diabetes E11.42; Z79.4 Diabetes mellitus type: type 2 Diabetes mellitus mcfp insulin use: with middle or intermediate school principal use Diabetes mellitus complication status: with neurologic complications Diabetes mellitus complication detail: with polyneuropathy Gout M10.9 Gout site: unspecified site Gout etiology: unspecified cause Chronicity: unspecified GERD (gastroesophageal reflux disease) K21.9 Esophagitis presence: esophagitis presence not specified Morbid obesity with BMI of 40.0-44.9, adult E66.01; Z68.41 Wound of foot S91.309A Chronic kidney disease N18.30 Chronic kidney disease stage: stage 3 (moderate) Chronic kidney disease stage 3 subtype: unspecified whether 3a or 3b Hx of AKA (above knee amputation) Z89.619 Hypoglycemia E16.2 Tinea pedis B35.3 DVT prophylaxis Z29.9 Time Spent (min) 32
== END 2020-04-14 12:20 | DRG 682 ==
LOC: ED 13:33 → SUATTDRO 16:56 → 2N 16:56

== ENCOUNTER 2020-07-18 02:06 | Inpatient (IN) ==
[2020-07-18] MEDS ORDERED: fentaNYL citrate 100 MCG/2 ML VIAL IV STA ×2 (02:51→05:31)
[2020-07-18] MEDS ORDERED: SODIUM CHLORIDE 0.9% 500 ML IV ONE (02:51)
[2020-07-18 03:40] LABS: Mean Corpuscular Hgb Conc 30.3 g/dL (32-36); Mean Platelet Volume 10.7 fL (7.4-10.4); Nucleated RBC # (auto) 0.06 K/uL (0-0); Nucleated RBC % (auto) 0.5 %; Platelet Count 526 K/uL (130-400)
[2020-07-18 03:44] LABS: INR 1.7 (0.9-1.1); Prothrombin Time 16.4 Seconds (9.0-12.0)
[2020-07-18 03:59] LABS: Albumin Level 2.7 gm/dl (3.4-5.0); BUN Creatinine Ratio 4.7 (10-20); Creatinine Clr Calc Pharmacy 21.9 ml/min; Est GFR (African American) 18.2; Est GFR (Non-African American) 15.7; Potassium 4.3 mmol/L (3.5-5.1)
[2020-07-18 04:02] LABS: Albumin Globulin Ratio 0.5 (0.9-2); Bilirubin,Total 1.3 mg/dl (0.2-1); Globulin 5.2 gm/dl (2.5-4.0); Total Protein 7.9 gm/dl (6.4-8.2)
[2020-07-18 04:17] LABS: Influenza A virus by PCR Negative (Neg); Influenza B virus by PCR Negative (Neg); RSV by PCR Negative (Neg); SARS CoV2 RNA(COVID-19) InHosp NEGATIVE (Negative)
[2020-07-18 04:56] LABS: Hematocrit (blood only) 34.3 % (42-52); Hemoglobin 10.4 g/dL (14.0-18.0); Mean Corpuscular Hemoglobin 31.7 pg (25-34); Mean Corpuscular Volume 104.6 fL (80-100); RDW Coefficient of Variation 18.5 % (11.5-14.5); RDW Standard Deviation 69.9 fL (36.4-46.3); Red Blood Count 3.28 M/uL (4.7-6.1); White Blood Count 11.81 K/uL (4.8-10.8)
[2020-07-18 04:59] LABS: Giant Platelets 1+; Polychromasia 1+
[2020-07-18 05:02] LABS: ALC (manual) 3.86 K/uL (1.2-3.4); ANC (manual) 4.79 K/uL (1.4-6.5); Basophils # (manual) 0.21 K/uL (0-0.2); Basophils % (manual) 1.8 %; Blast # (manual) 0.21 K/uL (0-0); Blast Cells % (manual) 1.8 %; Eosinophils # (manual) 0.11 K/uL (0-0.5); Eosinophils % (manual) 0.9 %; Large Granular Lymph % (manual) 21.2 %; Lymphocytes # (manual) 1.36 K/uL (1.2-3.4); Lymphocytes % (manual) 11.5 %; Metamyelocytes # (manual) 0.32 K/uL (0-0); Metamyelocytes % (manual) 2.7 %; Monocytes # (manual) 1.57 K/uL (0.11-0.59); Monocytes % (manual) 13.3 %; Myelocytes # (manual) 0.73 K/uL (0-0); Myelocytes % (manual) 6.2 %; Neutrophils # (manual) 4.79 K/uL (1.4-6.5); Neutrophils % (manual) 40.6 %
--- NOTE | 2020-07-18 06:48 | Emergency Department Note ---
Impression & Plan Femur fracture, right, Fall ED Provider Note NAME: JUAN SIU III AGE: 75 SEX: M ARRIVES VIA: Ambulance INFORMANT: Patient, and his ED PROVIDER(S): Tabby Campos DO CHIEF COMPLAINT: Fall PLAN: Disposition: Admitted to the [facility] hospitalist service with [facility] orthopedics consulted-Dr. Ryan Condition: Stable MEDICAL DECISION MAKING: This is a 75-year-old male patient with extensive past medical history who presents to the emergency department after falling off the side of his bed. Patient fell asleep while sitting on the side of his bed and fell forward striking his head on the floor and suffering a significant injury to the right lower extremity. It appears that he has a distal femur fracture just proximal to the prosthetic. I discussed the case with Dr. Ryan and they are willing to be consulted for orthopedic care to this patient. I discussed the case with the [facility] hospitalist and they will evaluate for inpatient care. Triage Nursing notes reviewed and agree them. Additional history obtained from the patient's who is at the bedside Prior medical records reviewed Vital Signs: reviewed and remarkable for hypotension Differential diagnosis: Femur fracture, tib-fib fracture, head injury, C-spine injury, dehydration, electrolyte abnormality ER treatment provided: IV normal saline hydration IV fentanyl x2 Diagnostics interpreted by me: ECG: Atrial fibrillation at a rate of [address] segment depression in the inferior and lateral leads which is more pronounced compared to an EKG from Joshua hernandez. There is no ectopy. Cardiac Monitoring: A. fib at a rate of 97 Laboratory studies: See below Imaging studies: As per stat rad CT head: No acute ICH, mass-effect or edema. No evidence of acute cortical stroke. Periventricular small vessel ischemic change. Mild generalized brain atrophy. Visualized sinuses and mastoid air cells are clear. CT C-spine: Diffuse osteopenia along with multilevel disc degenerative disease. No evidence of fracture or malalignment. CT T-spine: Degenerative changes without evidence of acute fracture. Scattered lucent foci most prominent at the level of T1 vertebral body. Please see CT chest report for additional findings. CT chest without contrast: Right-sided central line with the tip in the distal SVC/right atrial junction. Bilateral lower lobe and lingular atelectasis otherwise clear lung hernandez. Cardiomegaly. No pleural effusions or pneumothorax. Midline sternotomy wires. Degenerative disease of the spine with osteopenia. Upper abdominal structures reveals status post cholecystectomy with ascites. Otherwise unremarkable Right tib-fib x-ray: No acute fracture identified as per my interpretation Right femur x-ray: Distal femur fracture just above the hardware as per my interpretation Right knee x-ray: Distal femur fracture just above the hardware as per my in terpretation Chest x-ray: No acute pulmonary infiltrates or cardiomegaly as per my interpretation Consultation(s): Dr. Perry-orthopedics Dr. Ryan-orthopedic HPI: 75/M arrives for evaluation of fall. The patient was sitting on the edge of his bed when unfortunately he fell asleep and fell forward to the ground striking his head. He did not lose consciousness. He complains of pain in the right knee. The patient currently takes Coumadin and aspirin. He takes dialysis 3 times a week and recently stopped taking meds for C. difficile. ROS: See above HPI for pertinent positives & negatives. A total of 10 systems r eviewed and were otherwise negative. PAST MEDICAL HISTORY:See Below PAST SURGICAL HISTORY:See Below FAMILY HISTORY:See Below SOCIAL HISTORY:See Below HOME MEDICATIONS:See Below ALLERGIES:See Below VITALS:See Below PHYSICAL EXAMINATION: HEENT: Head - normocephalic and atraumatic. Pupils are equal, round, and reactive to light. Extraocular eye muscles are intact and sclera are anicteric. Ears - bilaterally patent canals with no evidence of hemotympanum. Nose - moist nasal mucosa without evidence of trauma or discharge. Mouth - moist buccal mucosa with no trauma to the teeth or signs of malocclusion. Neck: The neck is supple and there is no pain to palpation over the posterior cervical spine and no obvious step-offs or deformities. There is no JVD or tracheal deviation. Chest: There is a contusion to the right anterior chest wall. There is no obvious crepitus or paradoxical chest rise. Heart: Irregularly irregular rhythm with a controlled rate. There is a normal S1 and S2 with no murmurs, clicks, or gallops appreciated. Lungs: Clear to auscultation bilaterally with no wheezes, rales, or rhonchi. Abdomen: Soft, completely nontender, nondistended, with good bowel sounds. There is no sign of trauma such as contusions, abrasions or penetrations. There are no palpable pulsatile masses or hepatosplenomegaly. There is no guarding, rigidity, or rebound noted. Pelvis: Stable to rock and compression. Extremities: Left AKA with no obvious trauma to the stump. Right lower extremity: Significant edema surrounding the knee with pain to palpation just proximal to the knee most significantly on the lateral aspect. There is also discomfort on the medial aspect of the proximal tib-fib region. Neuro: The patient is awake and alert and easily able to follow commands. Muscle strength is 5 out of 5 in all 4 extremities. Otherwise, neuro exam is unremarkable. ED COURSE: Times/Reassessments: 0230: Patient was evaluated in room C10. A complete history and physical was performed. An order was placed for continuous cardiac monitoring. The patient was in A. fib at a rate of 97. A twelve-lead EKG was obtained. The patient had significant pain to the right knee. He was given 50 mcg of IV fentanyl. Patient went for plain x-rays of the right knee, right femur, and right tib-fib region. He also went for CT of the brain and cervical spine. The patient was bolused with IV normal saline solution as he was hypotensive. 0515: I reevaluated the patient at this time and reviewed the results of the x- rays, CAT scans and labs with the patient and his . I contacted Dr. Perry as he was on-call for orthopedics and he tried to contact Dr. Ryan. I finally spoke with Dr. Ryan and he was agreeable to keep the patient here at [facility] for orthopedic care if internal medicine was willing to admit the patient. I discussed the case with Dr. Carlson from the [facility] hospitalist group and they will evaluate for further management. I was notified by the lab that the patient had moderate blasts within his laboratory studies which was concerning and that they recommended additional hematology consultation. Tabby Campos DO Past Med/Surg History Medical History Acute renal failure (ARF) Afib Amputation of left lower extremity below knee Anemia Bronchitis CHF (congestive heart failure) Diabetes GERD (gastroesophageal reflux disease) Gout Hyperlipidemia Hypertension Renal insufficiency Thrombocytosis Uremia Surgical History History of appendectomy History of cholecystectomy History of prosthetic aortic valve Mechanical heart valve present 1997 S/P AKA (above knee amputation) unilateral Family History Other Family history of diabetes mellitus Social History Smoking Status: Never smoker Second Hand Exposure: No; Hx Alcohol Use: No Hx Substance Use: No Preferred Language: Greenlandic Communication Ability: Effective Visual Impairment: No Limitations Medical Field Representative Required: No Beliefs That Will Affect Care: None marital status: Current Living Situation: Spouse and Family Other Information That Helps Us Care for You: No Feels Safe at Home: Yes Safety Concerns: Feels Safe At This Time Assistive Devices: Glasses Assistive Devices Comment: rea lift used at home Allergies Allergies Allergy/AdvReac Type Severity Reaction Status Date / Time enoxaparin Allergy Intermediate Illness Verified 07/18/20 02:29 morphine Allergy Unknown Unknown Verified 07/18/20 02:29 adhesive AdvReac Intermediate SORES WITH Verified 07/18/20 02:29 "SOME TAPE" oxycodone AdvReac Intermediate HALLUCINATI Verified 07/18/20 02:29 ONS Home Meds Home Medications Medication Instructions Recorded Confirmed gemfibrozil [Lopid] 600 mg PO QAM 01/09/18 07/18/20 pantoprazole [Protonix] 40 mg PO QAM 01/09/18 07/18/20 levothyroxine 50 mcg PO QAM 02/22/20 07/18/20 Bifidobacterium infantis [Align] 4 mg PO DAILY 07/18/20 07/18/20 acetaminophen [Tylenol] 650 mg PO DIRECTED PRN 07/18/20 07/18/20 allopurinol 200 mg PO QAM 07/18/20 07/18/20 metoprolol tartrate 75 mg PO QAM 07/18/20 07/18/20 vancomycin 125 mg PO QID 07/18/20 07/18/20 warfarin 4 mg PO QPM 07/18/20 07/18/20 Previous Rx's Medication Instructions Recorded aspirin [Ecotrin Low Strength] 81 mg PO QAM #30 tab 01/14/18 Results & Data (ED) Vital Signs Vital Signs - 24 hr 07/18/20 02:11 07/18/20 02:27 07/18/20 02:28 Temperature 36.4 C L Temperature Source Oral Pulse Rate 96 H 85 85 Pulse Rate from SpO2 Sensor 87 85 Respiratory Rate 16 28 H 26 H Respiratory Effort / Characteristics Non-Labored Respiratory Depth Normal Blood Pressure 99/58 L Blood Pressure Mean 71 Pulse Oximetry 97 98 98 Oxygen Delivery Method Room Air Sepsis Recent Fever Within 48 Hours No Sepsis New/Unexplained Change in Mental Status No Sepsis Action Taken by Nursing No Action Required 07/18/20 02:30 07/18/20 02:31 07/18/20 03:00 Temperature Temperature Source Pulse Rate 95 H 81 90 Pulse Rate from SpO2 Sensor 96 H 83 94 H Respiratory Rate 18 24 13 Respiratory Effort / Characteristics Respiratory Depth Blood Pressure 93/60 L 99/61 L Blood Pressure Mean 71 73 Pulse Oximetry 98 98 99 Oxygen Delivery Method Sepsis Recent Fever Within 48 Hours Sepsis New/Unexplained Change in Mental Status Sepsis Action Taken by Nursing 07/18/20 03:01 07/18/20 03:30 07/18/20 03:31 Temperature Temperature Source Pulse Rate 88 94 H 84 Pulse Rate from SpO2 Sensor 90 Respiratory Rate 13 20 25 H Respiratory Effort / Characteristics Respiratory Depth Blood Pressure 107/65 Blood Pressure Mean 79 Pulse Oximetry 99 Oxygen Delivery Method Sepsis Recent Fever Within 48 Hours Sepsis New/Unexplained Change in Mental Status Sepsis Action Taken by Nursing 07/18/20 03:34 07/18/20 04:10 07/18/20 04:12 Temperature Temperature Source Pulse Rate 87 91 H Pulse Rate from SpO2 Sensor 91 H Respiratory Rate 24 20 Respiratory Effort / Characteristics Respiratory Depth Blood Pressure 94/69 L Blood Pressure Mean 77 Pulse Oximetry 99 96 Oxygen Delivery Method Room Air Sepsis Recent Fever Within 48 Hours Sepsis New/Unexplained Change in Mental Status Sepsis Action Taken by Nursing 07/18/20 04:15 07/18/20 04:30 07/18/20 04:31 Temperature Temperature Source Pulse Rate 89 97 H 97 H Pulse Rate from SpO2 Sensor 88 94 H 100 H Respiratory Rate 24 21 20 Respiratory Effort / Characteristics Respiratory Depth Blood Pressure 104/59 L 98/65 L Blood Pressure Mean 74 76 Pulse Oximetry 97 90 91 Oxygen Delivery Method Sepsis Recent Fever Within 48 Hours Sepsis New/Unexplained Change in Mental Status Sepsis Action Taken by Nursing 07/18/20 05:00 07/18/20 05:01 07/18/20 05:30 Temperature Temperature Source Pulse Rate 95 H 86 93 H Pulse Rate from SpO2 Sensor 97 H 84 93 H Respiratory Rate 19 20 23 Respiratory Effort / Characteristics Respiratory Depth Blood Pressure 106/69 113/74 Blood Pressure Mean 81 87 Pulse Oximetry 95 95 96 Oxygen Delivery Method Sepsis Recent Fever Within 48 Hours Sepsis New/Unexplained Change in Mental Status Sepsis Action Taken by Nursing 07/18/20 06:00 07/18/20 06:01 07/18/20 06:30 Temperature Temperature Source Pulse Rate 95 H 101 H 97 H Pulse Rate from SpO2 Sensor 99 H 96 H 94 H Respiratory Rate 26 H 21 13 Respiratory Effort / Characteristics Respiratory Depth Blood Pressure 108/72 97/71 L Blood Pressure Mean 84 79 Pulse Oximetry 95 94 93 Oxygen Delivery Method Sepsis Recent Fever Within 48 Hours Sepsis New/Unexplained Change in Mental Status Sepsis Action Taken by Nursing 07/18/20 06:31 Temperature Temperature Source Pulse Rate 97 H Pulse Rate from SpO2 Sensor 94 H Respiratory Rate 14 Respiratory Effort / Characteristics Respiratory Depth Blood Pressure Blood Pressure Mean Pulse Oximetry 94 Oxygen Delivery Method Sepsis Recent Fever Within 48 Hours Sepsis New/Unexplained Change in Mental Status Sepsis Action Taken by Nursing Laboratory Data Result diagrams: 07/19/20 05:20 07/19/20 05:20 Lab Results 07/18/20 07/18/20 07/18/20 Range/Units 03:22 03:22 03:22 WBC 11.81 H (4.8-10.8) K/uL RBC 3.28 L (4.7-6.1) M/uL Hgb 10.4 L (14.0-18.0) g/dL Hct 34.3 L (42-52) % MCV 104.6 H (80-100) fL MCH 31.7 (25-34) pg MCHC 30.3 L (32-36) g/dL RDW Std Deviation 69.9 H (36.4-46.3) fL RDW Coeff of Jose 18.5 H (11.5-14.5) % Plt Count 526 H (130-400) K/uL MPV 10.7 H (7.4-10.4) fL Absolute Nucleated RBC 0.06 H (0-0) K/uL Nucleated RBC % (auto) 0.5 % Neutrophils % (Manual) 40.6 % Lymphocytes % (Manual) 11.5 % Monocytes % (Manual) 13.3 % Eosinophils % (Manual) 0.9 % Basophils % (Manual) 1.8 % Metamyelocytes % (Man) 2.7 % Myelocytes % (Man) 6.2 % Blast Cells % (Manual) 1.8 % Neutrophils # (Manual) 4.79 (1.4-6.5) K/uL Total Absolute Neuts 4.79 (1.4-6.5) K/uL Lymphocytes # (Manual) 1.36 (1.2-3.4) K/uL Total Abs Lymphocytes 3.86 H (1.2-3.4) K/uL Monocytes # (Manual) 1.57 H (0.11-0.59) K/uL Eosinophils # (Manual) 0.11 (0-0.5) K/uL Basophils # (Manual) 0.21 H (0-0.2) K/uL Metamyelocytes # (Man) 0.32 H (0-0) K/uL Myelocytes # (Manual) 0.73 H (0-0) K/uL Blast Cells # (Man) 0.21 H (0-0) K/uL Large Granular Lymphs 21.2 % # Lrg Granular Lymphs 2.50 K/uL Blood Smear Review Giant Platelets 1+ Polychromasia 1+ PT 16.4 H (9.0-12.0) Seconds INR 1.7 H (0.9-1.1) Sodium 138 (136-145) mmol/L Potassium 4.3 (3.5-5.1) mmol/L Chloride 102 (98-107) mmol/L Carbon Dioxide 30 (21-32) mmol/L Anion Gap 6.0 (3-11) BUN 17 (7-18) mg/dl Creatinine 3.56 H (0.6-1.4) mg/dl Est Cr Clr Drug Dosing 21.9 ml/min Est GFR ( Amer) 18.2 Est GFR (Non-Af Amer) 15.7 BUN/Creatinine Ratio 4.7 L (10-20) Glucose 130 H (70-99) mg/dl Calcium 9.0 (8.5-10.1) mg/dl Total Bilirubin 1.3 H (0.2-1) mg/dl AST 28 (15-37) U/L ALT 14 (12-78) U/L Alkaline Phosphatase 203 H (45-117) U/L Total Protein 7.9 (6.4-8.2) gm/dl Albumin 2.7 L (3.4-5.0) gm/dl Globulin 5.2 H (2.5-4.0) gm/dl Albumin/Globulin Ratio 0.5 L (0.9-2) COVID-19 Eval Order SARS-CoV-2 (PCR) (Negative) Influenza Type A (PCR) (Neg) Influenza Type B (PCR) (Neg) RSV (RT-PCR) (Neg) 07/18/20 07/18/20 Range/Units 03:23 03:23 WBC (4.8-10.8) K/uL RBC (4.7-6.1) M/uL Hgb (14.0-18.0) g/dL Hct (42-52) % MCV (80-100) fL MCH (25-34) pg MCHC (32-36) g/dL RDW Std Deviation (36.4-46.3) fL RDW Coeff of Jose (11.5-14.5) % Plt Count (130-400) K/uL MPV (7.4-10.4) fL Absolute Nucleated RBC (0-0) K/uL Nucleated RBC % (auto) % Neutrophils % (Manual) % Lymphocytes % (Manual) % Monocytes % (Manual) % Eosinophils % (Manual) % Basophils % (Manual) % Metamyelocytes % (Man) % Myelocytes % (Man) % Blast Cells % (Manual) % Neutrophils # (Manual) (1.4-6.5) K/uL Total Absolute Neuts (1.4-6.5) K/uL Lymphocytes # (Manual) (1.2-3.4) K/uL Total Abs Lymphocytes (1.2-3.4) K/uL Monocytes # (Manual) (0.11-0.59) K/uL Eosinophils # (Manual) (0-0.5) K/uL Basophils # (Manual) (0-0.2) K/uL Metamyelocytes # (Man) (0-0) K/uL Myelocytes # (Manual) (0-0) K/uL Blast Cells # (Man) (0-0) K/uL Large Granular Lymphs % # Lrg Granular Lymphs K/uL Blood Smear Review Giant Platelets Polychromasia PT (9.0-12.0) Seconds INR (0.9-1.1) Sodium (136-145) mmol/L Potassium (3.5-5.1) mmol/L Chloride (98-107) mmol/L Carbon Dioxide (21-32) mmol/L Anion Gap (3-11) BUN (7-18) mg/dl Creatinine (0.6-1.4) mg/dl Est Cr Clr Drug Dosing ml/min Est GFR ( Amer) Est GFR (Non-Af Amer) BUN/Creatinine Ratio (10-20) Glucose (70-99) mg/dl Calcium (8.5-10.1) mg/dl Total Bilirubin (0.2-1) mg/dl AST (15-37) U/L ALT (12-78) U/L Alkaline Phosphatase (45-117) U/L Total Protein (6.4-8.2) gm/dl Albumin (3.4-5.0) gm/dl Globulin (2.5-4.0) gm/dl Albumin/Globulin Ratio (0.9-2) COVID-19 Eval Order CovFluRsv at [facility] SARS-CoV-2 (PCR) NEGATIVE (Negative) Influenza Type A (PCR) Negative (Neg) Influenza Type B (PCR) Negative (Neg) RSV (RT-PCR) Negative (Neg) Administered Medications Allopurinol (Allopurinol 100 Mg Tab) 200 mg PO [facility] Stop: 08/17/20 10:16 Last Admin: 07/18/20 12:31 Dose: Not Given Documented by: [id number] Aspirin (Aspirin 81 Mg Ectab) 81 mg PO [facility] Stop: 08/17/20 10:16 Last Admin: 07/18/20 12:29 Dose: Not Given Documented by: [id number] Hydromorphone HCl (Hydromorphone Inj 0.5 Mg/0.5 Ml Syr) 0.5 mg IV Q4 PRN PRN Reason: Severe Pain Stop: 08/01/20 10:16 Last Admin: 07/19/20 05:27 Dose: 0.5 mg Documented by: [id number] Admin: 07/19/20 01:28 Dose: 0.5 mg Documented by: [id number] Admin: 07/18/20 20:49 Dose: 0.5 mg Documented by: [id number] Admin: 07/18/20 17:06 Dose: 0.5 mg Documented by: [id number] Admin: 07/18/20 12:23 Dose: 0.5 mg Documented by: [id number] Levothyroxine Sodium (Levothyroxine Sodium 50 Mcg Tablet) 50 mcg PO DAILYBB [facility] Stop: 08/17/20 10:44 Last Admin: 07/19/20 06:19 Dose: Not Given Documented by: [id number] Admin: 07/18/20 12:31 Dose: Not Given Documented by: [id number] Metoprolol Tartrate (Metoprolol Tartrate 25 Mg Tab) 75 mg PO [facility] Stop: 08/17/20 10:16 Last Admin: 07/18/20 12:30 Dose: Not Given Documented by: [id number] Pantoprazole Sodium (Pantoprazole 40 Mg Tab) 40 mg PO [facility] Stop: 08/17/20 10:16 Last Admin: 07/18/20 12:30 Dose: Not Given Documented by: [id number] Raspberry (Raspberry Syrup 5 Ml Udp) 5 ml PO QID [facility] Stop: 08/01/20 12:59 Last Admin: 07/18/20 20:08 Dose: 5 ml Documented by: [id number] Admin: 07/18/20 16:59 Dose: 5 ml Documented by: [id number] Admin: 07/18/20 12:32 Dose: 5 ml Documented by: [id number] Vancomycin HCl (Vancomycin Hcl 125 Mg/2.5ml Soln) 125 mg PO QID [facility] Stop: 08/17/20 12:59 Last Admin: 07/18/20 20:08 Dose: 125 mg Documented by: [id number] Admin: 07/18/20 16:59 Dose: 125 mg Documented by: [id number] Admin: 07/18/20 12:32 Dose: 125 mg Documented by: [id number] Discontinued Medications Fentanyl Citrate (Fentanyl Citrate 100 Mcg/2 Ml Vial) 50 mcg IV NOW STA Stop: 07/18/20 02:52 Last Admin: 07/18/20 04:14 Dose: 50 mcg Documented by: [id number] Fentanyl Citrate (Fentanyl Citrate 100 Mcg/2 Ml Vial) 50 mcg IV NOW STA Stop: 07/18/20 05:32 Last Admin: 07/18/20 05:42 Dose: 50 mcg Documented by: [id number] Hydromorphone HCl (Hydromorphone Inj 0.5 Mg/0.5 Ml Syr) Confirm Administered Dose 0.5 [address] .[address] [facility] Stop: 07/18/20 08:54 Last Admin: 07/18/20 08:55 Dose: 0.5 mg Documented by: [id number] Hydromorphone HCl (Hydromorphone Inj 0.5 Mg/0.5 Ml Syr) 0.5 mg IV NOW STA Stop: 07/18/20 10:18 Last Admin: 07/18/20 10:46 Dose: Not Given Documented by: [id number] Sodium Chloride (Nss) 500 mls @ 999 mls/hr IV .Q31M ONE Stop: 07/18/20 03:21 Last Infusion: 07/18/20 04:51 Dose: 0 mls/hr Documented by: [id number] Admin: 07/18/20 04:13 Dose: 999 mls/hr Documented by: [id number] Phytonadione 2.5 mg/ Sodium (Chloride) 50.25 mls @ 100.5 mls/hr IV ONE ONE; Protocol Stop: 07/18/20 11:29 Last Infusion: 07/18/20 12:54 Dose: 0 mls/hr Documented by: [id number] Admin: 07/18/20 12:24 Dose: 100.5 mls/hr Documented by: [id number] Phytonadione 2.5 mg/ Sodium (Chloride) 50.25 mls @ 100.5 mls/hr IV 1845 ONE Stop: 07/18/20 19:14 Last Infusion: 07/18/20 20:09 Dose: 0 mls/hr Documented by: [id number] Admin: 07/18/20 19:20 Dose: 100.5 mls/hr Documented by: [id number] Vancomycin HCl (Vancomycin Hcl) 1,000 mg in 270 mls @ 200 mls/hr IV ONE ONE; Protocol Stop: 07/19/20 07:20 Last Admin: 07/19/20 06:30 Dose: 200 mls/hr Documented by: [id number] Discharge Plan Visit Data Chief Complaint: Fall Stated Complaint: FALL/LACERATION/KNEE PAIN ED Provider: Tabby Campos Discharge Problem: Femur fracture, right, Fall Patient Disposition: Admitted As Inpatient Discharge Instructions Interventions: ED Discharge Assessment Last Done: 07/18/20 09:41 Discharge Problem: Femur fracture, right Qualifiers: Encounter type: initial encounter Femur location: distal, unspecified portion Fracture type: closed Fracture morphology: other fracture Qualified Code(s): S72.491A - Other fracture of lower end of right femur, initial encounter for closed fracture Fall Qualifiers: Encounter type: initial encounter Qualified Code(s): W19.XXXA - Unspecified fall, initial encounter
--- NOTE | 2020-07-18 07:14 | CT Scan Report ---
CERVICAL SPINE CT CT DOSE: HISTORY: fall TECHNIQUE: Multiaxial CT images of the cervical spine were performed and reformatted in the sagittal and coronal plane without the use of contrast. A dose lowering technique was utilized adhering to th e principles of ALARA. COMPARISON: None. FINDINGS: No fractures. No subluxation. Prevertebral soft tissues and the C1-C2 interval are intact. No pneumothorax.0 there is a 1 cm stone within the atrophic left submandibular gland. A right jugular central venous catheter is partially visualized. Moderate to severe degenerative changes seen throug hout the cervical spine. IMPRESSION: No fractures within the cervical spine. ACT 112: Negative or not required by law. Electronically signed by: Leopoldo Del Real M.D. 07/18/2020 7:12 AM
--- NOTE | 2020-07-18 07:36 | CT Scan Report ---
CT SCAN OF THE BRAIN WITHOUT IV CONTRAST CLINICAL HISTORY: Fall. COMPARISON STUDY: CT of the brain dated 02/22/2020. TECHNIQUE: Unenhanced axial CT scan of the brain is performed from the vertex to the skull base. A do se lowering technique was utilized adhering to the principles of ALARA. FINDINGS: Brain parenchyma: There are age-related involutional changes noting mild subcortical and periventric ular microangiopathic change. There is no hemorrhage, mass effect, or evidence of acute territorial i schemia by CT criteria. Humphries-white matter differentiation is preserved. No extra-axial fluid collecti on is seen. Ventricles, sulci, cisterns: Prominent secondary to involutional change. Intracranial vasculature: There is atherosclerotic calcification of the cavernous carotid and vertebr al arteries. Calvarium: The skeletal structures are osteopenic. No depressed calvarial fracture is identified. Soft tissues: There is a small left frontal scalp contusion. Sinuses and mastoids: There is trace mucosal thickening in the left maxillary antrum. The remaining p aranasal sinuses are clear. The mastoid air cells are well pneumatized. Orbits: The bony orbits are grossly intact. IMPRESSION: There is no hemorrhage, mass effect, or evidence of acute territorial ischemia by CT crit lore. ACT 112: Negative or not required by law. Electronically signed by: Ho Denny M.D. 07/18/2020 7:35 AM
--- NOTE | 2020-07-18 07:49 | CT Scan Report ---
CT SCAN OF THE CHEST WITHOUT IV CONTRAST; CT SCAN OF THE THORACIC SPINE WITHOUT IV CONTRAST CLINICAL HISTORY: Fall. Right-sided chest wall pain. COMPARISON STUDY: Chest CT scans dated 02/28/2020 and 05/28/2006. TECHNIQUE: CT scan of the thorax was performed from the thoracic inlet to the upper abdomen. Additio sameera, CT scan of the thoracic spine is performed from the lower cervical spine to the upper lumbar s pine. Images for both examinations are reviewed in the axial, sagittal, and coronal planes. IV contra st was not administered for this examination as per the referring clinician. Note that the examinatio n is suboptimal without IV contrast. A dose lowering technique was utilized adhering to the principle s of ALARA. The examination is degraded by motion artifact, and by streak artifact from the arms whic h could not be elevated above the chest. CT DOSE: 2259.71 mGy.cm FINDINGS: Thyroid: Imaged portions of the thyroid gland are normal in size and attenuation. Thoracic aorta: There is atherosclerotic calcification of the thoracic aorta, which is normal in ayaka dewey and demonstrates standard 3-vessel arch anatomy. Heart: A right internal jugular central venous catheter is in place. The patient is status post midli ne sternotomy. The heart is enlarged and without pericardial effusion. The coronary arteries and aort ic valve leaflets are densely calcified. Lungs and pleural spaces: Evaluation of the lung parenchyma is degraded by motion artifact. There is no airspace consolidation typical for pneumonia, pleural effusion, or pneumothorax. Foci of scarring/ atelectasis are present at both lung bases. The trachea and central airways are clear. Mediastinum: There is no mediastinal hematoma or lymphadenopathy. Charu: Not well assessed without IV contrast. Axillae: There is no axillary lymphadenopathy. Upper abdomen: Cholecystectomy clips are noted. There is a small hiatal hernia. The liver and spleen are enlarged. Ascites is noted inferior to the liver. There is also trace perisplenic ascites. A 2.7 cm cyst is seen in the upper pole of the left kidney. Skeletal structures: The skeletal structures are osteopenic. See below for dedicated assessment of th e thoracic spine. Arthritic change is seen in the shoulders. No lytic or blastic bony lesions are see n. THORACIC SPINE: There is no evidence of fracture or malalignment. Vertebral body height and alignment are maintained throughout the thoracic spine. The transverse and spinous processes are intact. Anter ior osteophytes are seen throughout. There is mild hyperkyphosis. There is mild multilevel degenerati ve disc space narrowing. There is no CT evidence of large disc herniation or high-grade central canal stenosis The paraspinous soft tissues are normal in appearance. IMPRESSION: 1. There is no acute posttraumatic intrathoracic abnormality. 2. There is no airspace consolidation, pleural effusion, or pneumothorax. 3. Marked cardiomegaly. 4. There is no evidence of fracture or malalignment involving the thoracic spine. 5. Hepatosplenomegaly. 6. Abdominal ascites is partially visualized. 7. Additional findings as above. ACT 112: Negative or not required by law. Electronically signed by: Ho Denny M.D. 07/18/2020 7:48 AM
--- NOTE | 2020-07-18 07:58 | XRay Report ---
RIGHT KNEE 2 VIEWS; RIGHT TIBIA AND FIBULA 2 VIEWS CLINICAL HISTORY: Fall. FINDINGS: Crosstable AP and lateral views of the right knee with crosstable AP and lateral views of t he right tibia and fibula are obtained. No prior studies are available for comparison at the time of dictation. The skeletal structures are osteopenic. A hinged right knee arthroplasty with long tibial and femoral stems is in near anatomic alignment. No periprosthetic lucency is identified. There has b een undersurface remodeling of the patella. There is an acute and mildly displaced periprosthetic fra cture of the distal femoral shaft. There is mild angulation of the fracture fragments, and offset of the fragments by up to 8 mm. There is chronic appearing posttraumatic deformity of the proximal tibia . No acute tibial or fibular fracture is identified. The ankle joint is grossly maintained. There are large dorsal and plantar calcaneal enthesophytes. Diffuse soft tissue edema is present throughout th e imaged right lower extremity. There is advanced atherosclerotic calcification of the regional arter ies. IMPRESSION: 1. There is an acute and mildly displaced periprosthetic fracture of the distal femoral diaphysis. 2. There is no radiographic evidence of acute tibial or fibular fracture. 3. Diffuse soft tissue edema. Electronically signed by: Ho Denny M.D. 07/18/2020 7:56 AM
--- NOTE | 2020-07-18 08:24 | XRay Report ---
SINGLE VIEW CHEST CLINICAL HISTORY: Preoperative examination. Fall. Femoral fracture. Cardiomegaly. FINDINGS: An AP, portable, supine chest radiograph is compared to study dated 04/05/2020 and correlated with chest CT performed the same day 07/18/2020. The patient is status post midline sternotomy. A rig ht internal jugular central venous catheter is in place. The heart is enlarged noting atherosclerotic calcification of the thoracic aorta. The pulmonary vasculature is noncongested. There is chronic delta vation of the right hemidiaphragm with bibasilar scarring/atelectasis. Chronic interstitial thickenin g is similar to previous. No airspace consolidation or large pleural effusion is identified. No pneum othorax is seen. The skeletal structures are osteopenic. The bony thorax is grossly intact. IMPRESSION: Cardiomegaly with no acute cardiopulmonary abnormality. ACT 112: Negative or not required by law. Electronically signed by: Ho Denny M.D. 07/18/2020 8:23 AM
--- NOTE | 2020-07-18 08:27 | XRay Report ---
RIGHT FEMUR 3 VIEWS CLINICAL HISTORY: Fall. FINDINGS: AP, frog-leg, and crosstable lateral views of the right femur are correlated with CT of the right femur dated 03/13/2020. The skeletal structures are osteopenic. A hinged right knee arthroplast y is in place with long tibial and femoral stems. There is an acute periprosthetic spiral fracture of the distal femoral shaft with mild angulation. There is displacement of the fragments by up to 8 mm. The proximal femur and the visualized right hemipelvis appear intact. Degenerative joint space narro wing is noted in the right hip. Soft tissue edema is present in the distal thigh. Advanced atheroscle rotic calcification is observed in the regional arteries. IMPRESSION: Mildly displaced periprosthetic spiral fracture of the distal femoral shaft. Electronically signed by: Ho Denny M.D. 07/18/2020 8:25 AM
[2020-07-18] MEDS ORDERED: HYDROmorphone INJ 0.5 MG/0.5 ML SYR ONE (08:53)
[2020-07-18] MEDS ORDERED: ACETAMINOPHEN 325 MG TAB PO PRN (10:17)
[2020-07-18] MEDS ORDERED: HYDROmorphone INJ 0.5 MG/0.5 ML SYR IV STA (10:17)
[2020-07-18] MEDS ORDERED: oxyCODONE HCL IR 5 MG TAB (IMMEDIATE RELEASE) PO PRN (10:17)
[2020-07-18] MEDS ORDERED: PHYTONADIONE 2.5 MG in SODIUM CHLORIDE 0.9% 50 ML IV ONE ×2 (11:00→18:45)
--- NOTE | 2020-07-18 11:24 | Anesthesiology Consultation ---
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 History Surgery Operation Date: 07/19/20 07:00 Proposed Procedures p Right ORIF Periprosthetic Femur Fracture - Myles Ryan MD Height/Weight Height: 5 ft 10 in Weight: 110.4 kg Allergies Allergy/AdvReac Type Severity Reaction Status Date / Time enoxaparin Allergy Intermediate Illness Verified 07/18/20 02:29 morphine Allergy Unknown Unknown Verified 07/18/20 02:29 adhesive AdvReac Intermediate SORES WITH Verified 07/18/20 02:29 "SOME TAPE" oxycodone AdvReac Intermediate HALLUCINATI Verified 07/18/20 02:29 ONS Medications Home Medications Medication Instructions Recorded Confirmed Last Taken gemfibrozil [Lopid] 600 mg PO QAM 01/09/18 07/18/20 07/17/20 pantoprazole [Protonix] 40 mg PO QAM 01/09/18 07/18/20 07/17/20 aspirin [Ecotrin Low Strength] 81 mg PO QAM #30 tab 01/14/18 07/18/20 07/17/20 levothyroxine 50 mcg PO QAM 02/22/20 07/18/20 07/17/20 Bifidobacterium infantis [Align] 4 mg PO DAILY 07/18/20 07/18/20 07/17/20 acetaminophen [Tylenol] 650 mg PO DIRECTED PRN 07/18/20 07/18/20 Unknown allopurinol 200 mg PO QAM 07/18/20 07/18/20 07/17/20 metoprolol tartrate 75 mg PO QAM 07/18/20 07/18/20 Unknown vancomycin 125 mg PO QID 07/18/20 07/18/20 07/17/20 warfarin 4 mg PO QPM 07/18/20 07/18/20 07/17/20 Past Medical History Medical History Acute renal failure (ARF) Afib Amputation of left lower extremity below knee Anemia Bronchitis CHF (congestive heart failure) Diabetes GERD (gastroesophageal reflux disease) Gout Hyperlipidemia Hypertension Renal insufficiency Thrombocytosis Uremia Past Family History Family History Other Family history of diabetes mellitus Past Surgical History Surgical History History of appendectomy History of cholecystectomy History of prosthetic aortic valve Mechanical heart valve present 1997 S/P AKA (above knee amputation) unilateral Social History Smoking Status: Never smoker Hx Alcohol Use: No Hx Substance Use: No substance use type: does not use Physical Exam Vital Signs Last Vital Signs Temp 98.1 F 07/18/20 10:18 Pulse 105 H 07/18/20 10:18 Resp 20 07/18/20 10:18 BP 121/81 07/18/20 10:18 Pulse Ox 92 07/18/20 10:18 Testing Laboratory Results 07/18/20 03:22 07/18/20 03:22 PT 16.4 Seconds (9.0-12.0) H 07/18/20 03:22 INR 1.7 (0.9-1.1) H 07/18/20 03:22 Electrocardiogram Date: 07/18/20 Poor data quality, interpretation may be adversely affected Atrial fibrillation, rate [address] & T wave abnormality, consider inferior ischemia ST & T wave abnormality, consider anterolateral ischemia Abnormal ECG When compared with ECG of 03-APR-2020 14:44, Previous ECG has undetermined rhythm, needs review Chest X-Ray Date: 07/18/20 IMPRESSION: Cardiomegaly with no acute cardiopulmonary abnormality. Echocardiogram Date: 02/23/20 LV systolic function is normal No regional wall abnormalities noted Mild concentric LVH EF 50-55% Prosthetic AV is well seated The gradient is normal for this prosthetic AV Compared with study dated 01/23/2019, no significant change
[2020-07-18] MEDS: HYDROmorphone INJ 0.5 MG/0.5 ML SYR IV PRN ×3 (12:23→20:49)
[2020-07-18] MEDS: ASPIRIN 81 MG ECTAB PO SCH (12:29)
[2020-07-18] MEDS: PANTOprazole 40 MG TAB PO SCH (12:30)
[2020-07-18] MEDS: METOPROLOL TARTRATE 25 MG TAB PO SCH (12:30)
[2020-07-18] MEDS: LEVOTHYROXINE SODIUM 50 MCG TABLET PO SCH (12:31)
[2020-07-18] MEDS: allopurinoL 100 MG TAB PO SCH (12:31)
[2020-07-18] MEDS: VANCOMYCIN HCL 125 MG/2.5ML SOLN PO SCH ×3 (12:32→20:08)
[2020-07-18] MEDS: RASPBERRY SYRUP 5 ML UDP PO SCH ×3 (12:32→20:08)
--- NOTE | 2020-07-18 13:30 | History & Physical Report ---
Date of Service July 18, 2020 Assessment & Plan (1) Poornima-prosthetic femoral shaft fracture: NPO after midnight pain control with Dilaudid IV, Oxycodone, avoid Morphine due to ESRD consult Dr. Ryan, orthopedics consult anesthesiology bedrest this was mechanical fall, he cannot sleep at night so he will sit up with right leg hanging off bed for comfort last night he fell asleep while sitting up and fell off the bed, right leg hit and twisted on impact and he had immediate pain (2) Afib: INR 1.7 on admission, gave Vitamin K 2.5mg IV, hold Coumadin repeat INR is 1.6, should continue to go down, repeat in the morning continue Toprol 75mg daily, give with a sip of water tomorrow (3) Acute electrocardiogram changes: ST depressions notes in anterior leads no chest pain or pressure, troponin 0.02 for three sets check echo today for completeness prior to OR tomorrow (4) ESRD (end stage renal disease): consult Dr. Raymond electrolytes normal and appears euvolemic he had a full HD session on 07/17, will ask if he needs short session today with plans for OR tomorrow 1800mL fluid restriction, he admits that he drinks too much water at home check BMP daily had right tunneled HD catheter, appears clean he says he recently had vein mapping of left arm, plan for fistula next month with Dr Larson (5) C. difficile diarrhea: recovering from ongoing infection down to Vancomycin once a day stools are starting to be more formed and he has control contact precautions (6) Morbid obesity with BMI of 40.0-44.9, adult: (7) Hyperlipidemia: (8) Hypertension: (9) Anemia: (10) GERD (gastroesophageal reflux disease): Admission and Anticipated Discharge Date Admission Date: July 18, 2020 History of Present Illness Chief Complaint: My right leg is in severe pain Primary Care Provider: Leonel Manriquez MD 75 yo male with history of ESRD on HD, atrial fibrillation, left BKA, DM type II, HTN, recent history of C diff infections. He presented to the ED early this morning after he fell out of his bed and landed on his head and right leg. He says he has a habit of staying up at night because he cannot sleep. He says that dialysis has messed up his normal sleep wake cycle. He typically sits up and watches TV at night. He has a habit of sitting in bed with his right leg handing off the side of the bed, he feels more comfortable like this. At baseline he is completely dependent on Reji lift for transitioning out of bed and into a chair. His takes complete care of him. Early in the morning he must have fallen asleep while sitting up because he suddenly fell off the bed, struck his head on the floor and struck his right knee and his right leg twisted underneath him. He had immediate severe pain in right leg. No pain in other joints and no headache. He was rushed to the ED by EMS. Found to have right distal femur fracture that is periprosthetic around prior right TKA. Case was discussed with Dr. Ryan by Dr. Campos in the ED, he can be managed here. Hospitalists were asked to admit patient. Allergies Allergy/AdvReac Type Severity Reaction Status Date / Time enoxaparin Allergy Intermediate Illness Verified 07/18/20 02:29 morphine Allergy Unknown Unknown Verified 07/18/20 02:29 adhesive AdvReac Intermediate SORES WITH Verified 07/18/20 02:29 "SOME TAPE" oxycodone AdvReac Intermediate HALLUCINATI Verified 07/18/20 02:29 ONS Home Medications Medication Instructions Recorded Confirmed Type gemfibrozil [Lopid] 600 mg PO QAM 01/09/18 07/18/20 History pantoprazole [Protonix] 40 mg PO QAM 01/09/18 07/18/20 History aspirin [Ecotrin Low Strength] 81 mg PO QAM #30 tab 01/14/18 07/18/20 Rx levothyroxine 50 mcg PO QAM 02/22/20 07/18/20 History Bifidobacterium infantis [Align] 4 mg PO DAILY 07/18/20 07/18/20 History acetaminophen [Tylenol] 650 mg PO DIRECTED PRN 07/18/20 07/18/20 History allopurinol 200 mg PO QAM 07/18/20 07/18/20 History metoprolol tartrate 75 mg PO QAM 07/18/20 07/18/20 History vancomycin 125 mg PO QID 07/18/20 07/18/20 History warfarin 4 mg PO QPM 07/18/20 07/18/20 History Past Med/Surg History Medical History Acute renal failure (ARF) Afib Amputation of left lower extremity below knee Anemia Bronchitis CHF (congestive heart failure) Diabetes GERD (gastroesophageal reflux disease) Gout Hyperlipidemia Hypertension Renal insufficiency Thrombocytosis Uremia Surgical History History of appendectomy History of cholecystectomy History of prosthetic aortic valve Mechanical heart valve present 1997 S/P AKA (above knee amputation) unilateral Family History Other Family history of diabetes mellitus Social History Smoking Status: Never smoker Second Hand Exposure: No; Hx Alcohol Use: No Hx Substance Use: No Preferred Language: Icelandic Communication Ability: Effective Visual Impairment: No Limitations Pre School Manager Required: No Beliefs That Will Affect Care: None marital status: Current Living Situation: Spouse and Family Other Information That Helps Us Care for You: No Feels Safe at Home: Yes Safety Concerns: Feels Safe At This Time Assistive Devices: Glasses Assistive Devices Comment: reji lift used at home Review of Systems Review of Systems: All systems reviewed & are unremarkable except as noted in HPI & below Musculoskeletal: + joint pain (severe pain in right distal femur, knee) Physical Exam Constitutional: well developed and + morbidly obese; no acute distress Eyes: PERRL, conjunctivae normal, anicteric sclerae ENMT: external ear and nose normal, oropharynx normal Neck: trachea midline, no thyromegaly Respiratory: normal respiratory effort, lungs clear to auscultation Cardiovascular: RRR, no murmur, no edema Chest (Breasts): Chest: + vascular access device or port (right tunneled HD catheter) Gastrointestinal (Abdomen): normal bowel sounds, soft, nontender, no hepatosplenomegaly Musculoskeletal: Head/Neck/Chest: normocephalic, head atraumatic and neck supple Extremities: + limited ROM of extremities, + abnormal strength (very weak, cannot transfer) and + amputation noted (left BKA); no cyanosis, no clubbing and no petechiae Skin: no rashes, warm and dry Neurologic: patellar DTR's 2+ bilat, sensation intact and PERRL, EOMI, accommodation nl, no face palsy, no dysarthria Psychiatric: A+Ox3, euthymic affect Lymphatic: no cervical or axillary lymphadenopathy Results & Data Results & Data ([facility]) Vital Signs (Past 12 Hours) Vital Signs Temp Pulse Pulse Resp BP BP Pulse Ox 07/18/20 10:18 36.7 C 105 H 20 121/81 92 07/18/20 10:10 36.7 C 105 H 18 121/81 92 07/18/20 09:41 103 H 18 93/59 L 95 07/18/20 09:00 98 H 18 95/60 L 94 07/18/20 08:30 99 H 20 96/69 L 96 07/18/20 08:00 106 H 14 95/65 L 95 07/18/20 07:30 99 H 20 98/72 L 95 07/18/20 07:00 109 H 18 122/68 95 07/18/20 06:31 97 H 14 94 07/18/20 06:30 97 H 13 97/71 L 93 07/18/20 06:01 101 H 21 94 07/18/20 06:00 95 H 26 H 108/72 95 07/18/20 05:30 93 H 23 113/74 96 07/18/20 05:01 86 20 95 07/18/20 05:00 95 H 19 106/69 95 07/18/20 04:31 97 H 20 91 07/18/20 04:30 97 H 21 98/65 L 90 07/18/20 04:15 89 24 104/59 L 97 07/18/20 04:12 91 H 20 94/69 L 96 07/18/20 04:10 87 24 07/18/20 03:34 99 07/18/20 03:31 84 25 H 07/18/20 03:30 94 H 20 107/65 07/18/20 03:01 88 13 99 07/18/20 03:00 90 13 99/61 L 99 07/18/20 02:31 81 24 98 07/18/20 02:30 95 H 18 93/60 L 98 07/18/20 02:28 85 26 H 98 07/18/20 02:27 85 28 H 99/58 L 98 07/18/20 02:11 36.4 C L 96 H 16 97 Laboratory Results Laboratory Results - last 24 hr 07/18/20 07/18/20 07/18/20 03:22 03:22 03:22 WBC 11.81 H RBC 3.28 L Hgb 10.4 L Hct 34.3 L MCV 104.6 H MCH 31.7 MCHC 30.3 L RDW Std Deviation 69.9 H RDW Coeff of Jose 18.5 H Plt Count 526 H MPV 10.7 H Absolute Nucleated RBC 0.06 H Nucleated RBC % (auto) 0.5 Neutrophils % (Manual) 40.6 Lymphocytes % (Manual) 11.5 Monocytes % (Manual) 13.3 Eosinophils % (Manual) 0.9 Basophils % (Manual) 1.8 Metamyelocytes % (Man) 2.7 Myelocytes % (Man) 6.2 Blast Cells % (Manual) 1.8 Neutrophils # (Manual) 4.79 Total Absolute Neuts 4.79 Lymphocytes # (Manual) 1.36 Total Abs Lymphocytes 3.86 H Monocytes # (Manual) 1.57 H Eosinophils # (Manual) 0.11 Basophils # (Manual) 0.21 H Metamyelocytes # (Man) 0.32 H Myelocytes # (Manual) 0.73 H Blast Cells # (Man) 0.21 H Large Granular Lymphs 21.2 # Lrg Granular Lymphs 2.50 Blood Smear Review Giant Platelets 1+ Polychromasia 1+ PT 16.4 H INR 1.7 H Sodium 138 Potassium 4.3 Chloride 102 Carbon Dioxide 30 Anion Gap 6.0 BUN 17 Creatinine 3.56 H Est Cr Clr Drug Dosing 21.9 Est GFR ( Amer) 18.2 Est GFR (Non-Af Amer) 15.7 BUN/Creatinine Ratio 4.7 L Glucose 130 H Calcium 9.0 Total Bilirubin 1.3 H AST 28 ALT 14 Alkaline Phosphatase 203 H Troponin I Total Protein 7.9 Albumin 2.7 L Globulin 5.2 H Albumin/Globulin Ratio 0.5 L Nasal Screen MRSA (PCR) COVID-19 Eval Order SARS-CoV-2 (PCR) Influenza Type A (PCR) Influenza Type B (PCR) RSV (RT-PCR) [facility] [employer] BCR/abl t(9;22) (FISH) Flow Cytometry Comment Blood Type Antibody Screen 07/18/20 07/18/20 07/18/20 03:23 03:23 03:31 WBC RBC Hgb Hct MCV MCH MCHC RDW Std Deviation RDW Coeff of Jose Plt Count MPV Absolute Nucleated RBC Nucleated RBC % (auto) Neutrophils % (Manual) Lymphocytes % (Manual) Monocytes % (Manual) Eosinophils % (Manual) Basophils % (Manual) Metamyelocytes % (Man) Myelocytes % (Man) Blast Cells % (Manual) Neutrophils # (Manual) Total Absolute Neuts Lymphocytes # (Manual) Total Abs Lymphocytes Monocytes # (Manual) Eosinophils # (Manual) Basophils # (Manual) Metamyelocytes # (Man) Myelocytes # (Manual) Blast Cells # (Man) Large Granular Lymphs # Lrg Granular Lymphs Blood Smear Review Giant Platelets Polychromasia PT INR Sodium Potassium Chloride Carbon Dioxide Anion Gap BUN Creatinine Est Cr Clr Drug Dosing Est GFR ( Amer) Est GFR (Non-Af Amer) BUN/Creatinine Ratio Glucose Calcium Total Bilirubin AST ALT Alkaline Phosphatase Troponin I Total Protein Albumin Globulin Albumin/Globulin Ratio Nasal Screen MRSA (PCR) COVID-19 Eval Order [facility]sv at [facility] SARS-CoV-2 (PCR) NEGATIVE Influenza Type A (PCR) Negative Influenza Type B (PCR) Negative RSV (RT-PCR) Negative [facility] [employer] Pending BCR/abl t(9;22) (FISH) Pending Flow Cytometry Comment Pending Blood Type Antibody Screen 07/18/20 07/18/20 07/18/20 11:37 11:37 Unknown WBC RBC Hgb Hct MCV MCH MCHC RDW Std Deviation RDW Coeff of Jose Plt Count MPV Absolute Nucleated RBC Nucleated RBC % (auto) Neutrophils % (Manual) Lymphocytes % (Manual) Monocytes % (Manual) Eosinophils % (Manual) Basophils % (Manual) Metamyelocytes % (Man) Myelocytes % (Man) Blast Cells % (Manual) Neutrophils # (Manual) Total Absolute Neuts Lymphocytes # (Manual) Total Abs Lymphocytes Monocytes # (Manual) Eosinophils # (Manual) Basophils # (Manual) Metamyelocytes # (Man) Myelocytes # (Manual) Blast Cells # (Man) Large Granular Lymphs # Lrg Granular Lymphs Blood Smear Review Giant Platelets Polychromasia PT INR Sodium Potassium Chloride Carbon Dioxide Anion Gap BUN Creatinine Est Cr Clr Drug Dosing Est GFR ( Amer) Est GFR (Non-Af Amer) BUN/Creatinine Ratio Glucose Calcium Total Bilirubin AST ALT Alkaline Phosphatase Troponin I 0.029 0.020 Total Protein Albumin Globulin Albumin/Globulin Ratio Nasal Screen MRSA (PCR) COVID-19 Eval Order SARS-CoV-2 (PCR) Influenza Type A (PCR) Influenza Type B (PCR) RSV (RT-PCR) [facility] [employer] BCR/abl t(9;22) (FISH) Flow Cytometry Comment Blood Type Pending Antibody Screen Pending 07/18/20 Unknown WBC RBC Hgb Hct MCV MCH MCHC RDW Std Deviation RDW Coeff of Jose Plt Count MPV Absolute Nucleated RBC Nucleated RBC % (auto) Neutrophils % (Manual) Lymphocytes % (Manual) Monocytes % (Manual) Eosinophils % (Manual) Basophils % (Manual) Metamyelocytes % (Man) Myelocytes % (Man) Blast Cells % (Manual) Neutrophils # (Manual) Total Absolute Neuts Lymphocytes # (Manual) Total Abs Lymphocytes Monocytes # (Manual) Eosinophils # (Manual) Basophils # (Manual) Metamyelocytes # (Man) Myelocytes # (Manual) Blast Cells # (Man) Large Granular Lymphs # Lrg Granular Lymphs Blood Smear Review Giant Platelets Polychromasia PT INR Sodium Potassium Chloride Carbon Dioxide Anion Gap BUN Creatinine Est Cr Clr Drug Dosing Est GFR ( Amer) Est GFR (Non-Af Amer) BUN/Creatinine Ratio Glucose Calcium Total Bilirubin AST ALT Alkaline Phosphatase Troponin I Total Protein Albumin Globulin Albumin/Globulin Ratio Nasal Screen MRSA (PCR) Pending COVID-19 Eval Order SARS-CoV-2 (PCR) Influenza Type A (PCR) Influenza Type B (PCR) RSV (RT-PCR) [facility] [employer] BCR/abl t(9;22) (FISH) Flow Cytometry Comment Blood Type Antibody Screen Diagnostic Findings Femur x-ray: IMPRESSION: Mildly displaced periprosthetic spiral fracture of the distal femoral shaft. Medications Administered Current Inpatient Medications Acetaminophen (Acetaminophen 325 Mg Tab) 650 mg PO Q4H PRN PRN Reason: Pain or Fever Stop: 08/17/20 10:16 Allopurinol ([facility]ol 100 Mg Tab) [facility] Stop: 08/17/20 10:16 Last Admin: 07/18/20 12:31 Dose: Not Given Documented by: Aspirin (Aspirin 81 Mg Ectab) 81 mg PO QAM REPLACED BY [facility] Stop: 08/17/20 10:16 Last Admin: 07/18/20 12:29 Dose: Not Given Documented by: Hydromorphone HCl (Hydromorphone Inj 0.5 Mg/0.5 Ml Syr) 0.5 mg IV Q4 PRN PRN Reason: Severe Pain Stop: 08/01/20 10:16 Last Admin: 07/18/20 12:23 Dose: 0.5 mg Documented by: Levothyroxine Sodium (Levothyroxine Sodium 50 Mcg Tablet) 50 mcg PO DAILYBB REPLACED BY [facility] Stop: 08/17/20 10:44 Last Admin: 07/18/20 12:31 Dose: Not Given Documented by: Metoprolol Tartrate (Metoprolol Tartrate 25 Mg Tab) 75 mg PO QAM REPLACED BY [facility] Stop: 08/17/20 10:16 Last Admin: 07/18/20 12:30 Dose: Not Given Documented by: Oxycodone HCl (Oxycodone Hcl Ir 5 Mg Tab (Immediate Release)) 5 mg PO Q6 PRN PRN Reason: Pain Stop: 08/01/20 10:16 Pantoprazole Sodium (Pantoprazole 40 Mg Tab) [facility] [place] Stop: 08/17/20 10:16 Last Admin: 07/18/20 12:30 Dose: Not Given Documented by: Raspberry (Raspberry Syrup 5 Ml Udp) 5 ml PO QID REPLACED BY [facility] Stop: 08/01/20 12:59 Last Admin: 07/18/20 12:32 Dose: 5 ml Documented by: Vancomycin HCl (Vancomycin Hcl 125 Mg/2.5ml Soln) 125 mg PO QID REPLACED BY [facility] Stop: 08/17/20 12:59 Last Admin: 07/18/20 12:32 Dose: 125 mg Documented by: Code Status & VTE Plan VTE Prophylaxis Plan VTE Prophylaxis will be ordered: No PG Care Time/CCT Total # of Minutes Spent Total Time Spent with Patient: Total time spent is greater than 50% in coordination of care (as documented) at patient's floor/unit and/or counseling patient: Coding Level of Care Code 21714 Initial Inpt Care Lvl 3 Diagnoses Poornima-prosthetic femoral shaft fracture M97.8XXA; Z96.649 Afib I48.91 Acute electrocardiogram changes R94.31 ESRD (end stage renal disease) N18.6 C. difficile diarrhea A04.72 Morbid obesity with BMI of 40.0-44.9, adult E66.01; Z68.41 Hyperlipidemia E78.5 Hyperlipidemia type: unspecified Hypertension I10 Hypertension type: essential hypertension Anemia D64.9 Anemia type: unspecified type GERD (gastroesophageal reflux disease) K21.9 Esophagitis presence: esophagitis presence not specified (1) Anemia Anemia type: unspecified type Qualified Code(s): D64.9 - Anemia, unspecified (2) Hyperlipidemia Hyperlipidemia type: unspecified Qualified Code(s): E78.5 - Hyperlipidemia, unspecified (3) GERD (gastroesophageal reflux disease) Esophagitis presence: esophagitis presence not specified Qualified Code(s): K21.9 - Gastro-esophageal reflux disease without esophagitis (4) Hypertension Hypertension type: essential hypertension Qualified Code(s): I10 - Essential (primary) hypertension
--- NOTE | 2020-07-18 13:43 | Nephrology Consultation ---
Date of Consultation July 18, 2020 Assessment & Plan (1) ESRD (end stage renal disease): ESRD on hemodialysis Wednesday, Wednesday, Wednesday. Admitted to the hospital with right periprosthetic femur fracture after a mechanical fall at home. He has been otherwise well, blood pressure, volume status, electrolyte acceptable. --no indication for dialysis today, avoid IV fluid, plan for dialysis tomorrow afternoon as OR is scheduled for morning. --epogen 4000 units x 1 dose now --dose medications for GFR less than 10, left arm nephrology precaution. --continue on renal vitamin and phosphate binders Will follow Thank you for allowing me to participate in your patient's care. It was a plea sure to see Tyson (2) Poornima-prosthetic femoral shaft fracture: (3) Anemia: (4) Hypertension: History of Present Illness Reason for Consultation: ESRD on hemodialysis. Attending Physician: Rajiv Carlson DO History of Present Illness Mr. Merchant is a 74 year old white male who is seen at the request of Dr. Hogan for evaluation of LINO/CKD. Tyson presented to the hospital after a mechanical fall at home while he was sleeping without the bedrail last night and found to have right femur fracture. He was seen by Orthopedics and plan for OR tomorrow morning. Currently his pain is managed with analgesic but worsens with any movement of rt LE.. Has ESRD on hemodialysis Wednesday, Wednesday, Wednesday at [facility] [place]. He had his regular dialysis treatment yesterday, completed full treatment. Currently blood pressure, electrolyte, volume status acceptable. 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 Overall otherwise asymptomatic. Allergies Allergy/AdvReac Type Severity Reaction Status Date / Time enoxaparin Allergy Intermediate Illness Verified 07/18/20 02:29 morphine Allergy Unknown Unknown Verified 07/18/20 02:29 adhesive AdvReac Intermediate SORES WITH Verified 07/18/20 02:29 "SOME TAPE" oxycodone AdvReac Intermediate HALLUCINATI Verified 07/18/20 02:29 ONS Home Medications Medication Instructions Recorded Confirmed Type gemfibrozil [Lopid] 600 mg PO QAM 01/09/18 07/18/20 History pantoprazole [Protonix] 40 mg PO QAM 01/09/18 07/18/20 History aspirin [Ecotrin Low Strength] 81 mg PO QAM #30 tab 01/14/18 07/18/20 Rx levothyroxine 50 mcg PO QAM 02/22/20 07/18/20 History Bifidobacterium infantis [Align] 4 mg PO DAILY 07/18/20 07/18/20 History acetaminophen [Tylenol] 650 mg PO DIRECTED PRN 07/18/20 07/18/20 History allopurinol 200 mg PO QAM 07/18/20 07/18/20 History metoprolol tartrate 75 mg PO QAM 07/18/20 07/18/20 History vancomycin 125 mg PO QID 07/18/20 07/18/20 History warfarin 4 mg PO QPM 07/18/20 07/18/20 History Patient History Medical History Acute renal failure (ARF) Afib Amputation of left lower extremity below knee Anemia Bronchitis CHF (congestive heart failure) Diabetes GERD (gastroesophageal reflux disease) Gout Hyperlipidemia Hypertension Renal insufficiency Thrombocytosis Uremia Surgical History History of appendectomy History of cholecystectomy History of prosthetic aortic valve Mechanical heart valve present 1997 S/P AKA (above knee amputation) unilateral Family History Other Family history of diabetes mellitus Social History Smoking Status: Never smoker Second Hand Exposure: No; Hx Alcohol Use: No Hx Substance Use: No Preferred Language: Telugu Communication Ability: Effective Visual Impairment: No Limitations Acid Pump Operator Required: No Beliefs That Will Affect Care: None marital status: Current Living Situation: Spouse and Family Other Information That Helps Us Care for You: No Feels Safe at Home: Yes Safety Concerns: Feels Safe At This Time Assistive Devices: Glasses Assistive Devices Comment: rea lift used at home Review of Systems Review of Systems: All systems reviewed & are unremarkable except as noted in Subjective Physical Exam Constitutional: WD/WN, vitals as above no acute distress Eyes: PERRL, conjunctivae normal, anicteric sclerae ENMT: external ear and nose normal, oropharynx normal Ears: no hearing impairment Neck: trachea midline Respiratory: normal respiratory effort, lungs clear to auscultation no cough Auscultation: no crackles, no rales and no wheezes Cardiovascular: RRR, no murmur, no edema Gastrointestinal (Abdomen): normal bowel sounds, soft, nontender, no hepatosplenomegaly Percussion/Palpation: abdomen nontender, no guarding and abdomen not rigid Musculoskeletal: Extremities: + limited ROM of extremities (Rt LE due to pain.) Gait: normal gait Skin: no rashes, warm and dry Neurologic: moves all extremities and awake Psychiatric: A+Ox3, euthymic affect Results & Data ([facility]) Vital Signs (Past 12 Hours) Vital Signs Temp Pulse Pulse Resp BP BP Pulse Ox 07/18/20 10:18 36.7 C 105 H 20 121/81 92 07/18/20 10:10 36.7 C 105 H 18 121/81 92 07/18/20 09:41 103 H 18 93/59 L 95 07/18/20 09:00 98 H 18 95/60 L 94 07/18/20 08:30 99 H 20 96/69 L 96 07/18/20 08:00 106 H 14 95/65 L 95 07/18/20 07:30 99 H 20 98/72 L 95 07/18/20 07:00 109 H 18 122/68 95 07/18/20 06:31 97 H 14 94 07/18/20 06:30 97 H 13 97/71 L 93 07/18/20 06:01 101 H 21 94 07/18/20 06:00 95 H 26 H 108/72 95 07/18/20 05:30 93 H 23 113/74 96 07/18/20 05:01 86 20 95 07/18/20 05:00 95 H 19 106/69 95 07/18/20 04:31 97 H 20 91 07/18/20 04:30 97 H 21 98/65 L 90 07/18/20 04:15 89 24 104/59 L 97 07/18/20 04:12 91 H 20 94/69 L 96 07/18/20 04:10 87 24 07/18/20 03:34 99 07/18/20 03:31 84 25 H 07/18/20 03:30 94 H 20 107/65 04//21 03:01 88 13 99 07/18/20 03:00 90 13 99/61 L 99 07/18/20 02:31 81 24 98 07/18/20 02:30 95 H 18 93/60 L 98 07/18/20 02:28 85 26 H 98 07/18/20 02:27 85 28 H 99/58 L 98 07/18/20 02:11 36.4 C L 96 H 16 97 PG Care Time/CCT Total # of Minutes Spent Total Time Spent with Patient: Total time spent is greater than 50% in coordination of care (as documented) at patient's floor/unit and/or counseling patient: Coding Level of Care Code 19168 Initial Inpt Care Lvl 3 Diagnoses ESRD (end stage renal disease) N18.6 Poornima-prosthetic femoral shaft fracture M97.8XXA; Z96.649 Anemia D64.9 Anemia type: unspecified type Hypertension I10 Hypertension type: essential hypertension (1) Anemia Anemia type: unspecified type Qualified Code(s): D64.9 - Anemia, unspecified (2) Hypertension Hypertension type: essential hypertension Qualified Code(s): I10 - Essential (primary) hypertension
[2020-07-18] MEDS ORDERED: ONDANSETRON INJ 2 MG/ML 2 ML VIAL IV PRN (13:53)
--- NOTE | 2020-07-18 15:17 | Orthopedic Consultation ---
Date of Service July 18, 2020 Assessment & Plan (1) Poornima-prosthetic femoral shaft fracture: 75-year-old male with a left above-knee amputation now right distal femur periprosthetic fracture above a constrained/hinged in an stemmed femoral component of a total knee arthroplasty. He has multiple medical problems that complicate surgical intervention. He has a strong desire to preserve that leg if possible. He wants to try open reduction internal fixation so he can use that leg for transfers. He understands will be at least 6 to 8 weeks of healing time after surgery before he can use it. We also discussed nonoperative management with a knee immobilizer, but he has quite a bit of pain with any positioning in bed. ORIF will provide some comfort for transfers as well. We did discuss that above-knee amputation is an option as well. He wishes this to be the salvage option if his fixation surgery does not work. He is aware that a nonunion or malunion would prompt a recommendation for above-knee amputation. Discussed risk surgery include not limited to infection, neurovascular injury, need for amputation, blood clots, symptomatic hardware, nonunion/malunion, pain syndromes and complications related to anesthesia. His INR is 1.7, and he will need to have his warfarin reversed with vitamin K. -Please reverse his warfarin therapy for surgery tomorrow. -Appreciate nephrology input on dialysis after surgery -N.p.o. after midnight for surgery tomorrow with Dr. Ryan who will obtain consent -Bedrest -Mechanical DVT prophylaxis in addition to his ongoing warfarin therapy -Continue C. difficile coverage History of Present Illness Reason for Consultation: Right periprosthetic distal femur fracture Requesting Physician: . Attending Physician: Rajiv Carlson DO 75-year-old male with a past medical history complicated for cirrhosis, end- stage renal disease, congestive heart failure, diabetes, C. difficile infection, and a left above-knee amputation as a sequela of a prior elective total knee complicated by infection. Original surgery was greater than [address] Aceves. He also had a right total knee arthroplasty by Dr. Aceves prior to the left knee that was complicated by infection. He reports that he had used to be ambulatory on his above-knee amputation with a prosthetic but he has not done so for a long time. Reports he is lost a significant a muscle mass and strength and is mostly wheelchair and motorized scooter bound. He has several accommodations at his house for getting around and mostly nonweightbearing status. He does use that right lower leg for transitions and transfers. He states that he would love to keep the leg if possible, but he realizes that this fracture may be complicated after move forward with amputation. He states that he fell out of bed this morning resulting in a twisting motion onto that leg resulting in immediate pain. He denies any previous fractures above that total knee arthroplasty. Has not had any significant knee pain. He denies any numbness or tingling. He also had 2 lacerations on his foot and tibia as a result of the fall. He states that he bleeds quite easily. Allergies Allergy/AdvReac Type Severity Reaction Status Date / Time enoxaparin Allergy Intermediate Illness Verified 07/18/20 02:29 morphine Allergy Unknown Unknown Verified 07/18/20 02:29 adhesive AdvReac Intermediate SORES WITH Verified 07/18/20 02:29 "SOME TAPE" oxycodone AdvReac Intermediate HALLUCINATI Verified 07/18/20 02:29 ONS Home Medications Medication Instructions Recorded Confirmed Type gemfibrozil [Lopid] 600 mg PO QAM 01/09/18 07/18/20 History pantoprazole [Protonix] 40 mg PO QAM 01/09/18 07/18/20 History aspirin [Ecotrin Low Strength] 81 mg PO QAM #30 tab 01/14/18 07/18/20 Rx levothyroxine 50 mcg PO QAM 02/22/20 07/18/20 History Bifidobacterium infantis [Align] 4 mg PO DAILY 07/18/20 07/18/20 History acetaminophen [Tylenol] 650 mg PO DIRECTED PRN 07/18/20 07/18/20 History allopurinol 200 mg PO QAM 07/18/20 07/18/20 History metoprolol tartrate 75 mg PO QAM 07/18/20 07/18/20 History vancomycin 125 mg PO QID 07/18/20 07/18/20 History warfarin 4 mg PO QPM 07/18/20 07/18/20 History Past Med/Surg History Medical History Acute renal failure (ARF) Afib Amputation of left lower extremity below knee Anemia Bronchitis CHF (congestive heart failure) Diabetes GERD (gastroesophageal reflux disease) Gout Hyperlipidemia Hypertension Renal insufficiency Thrombocytosis Uremia Surgical History History of appendectomy History of cholecystectomy History of prosthetic aortic valve Mechanical heart valve present 1997 S/P AKA (above knee amputation) unilateral Family History Other Family history of diabetes mellitus Social History Smoking Status: Never smoker Second Hand Exposure: No; Hx Alcohol Use: No Hx Substance Use: No Preferred Language: Ghanaian Communication Ability: Effective Visual Impairment: No Limitations Stamp Pad Maker Required: No Beliefs That Will Affect Care: None marital status: Current Living Situation: Spouse and Family Other Information That Helps Us Care for You: No Feels Safe at Home: Yes Safety Concerns: Feels Safe At This Time Assistive Devices: Glasses Assistive Devices Comment: rea lift used at home Review of Systems All systems reviewed & are unremarkable except as noted in HPI & below. Physical Exam Right lower extremity: The right lower extremity was held with the leg rotated at the fracture site. Is able to pull traction put him in a more comfortable position. There is obvious swelling about the distal femur and knee effusion. He has positive dorsiflexion/plantarflexion/EHL activity. Sensation is grossly intact to light touch throughout. There is a weakly palpable dorsalis pedis pulse. The tibia has a well dressed punctate wound along the tibial crest. There was no active bleeding. The small toe had a small laceration to the lateral side that was well approximated and with no active bleeding. The sites were redressed by me. Constitutional well developed; no acute distress and not intoxicated appearing ENMT external ear and nose normal, oropharynx normal Respiratory normal respiratory effort; no respiratory distress Skin no rashes, warm and dry Psychiatric A+Ox3, euthymic affect Results & Data Results & Data Laboratory Results . H & H 07/18/20 Range/Units 03:22 Hgb 10.4 L (14.0-18.0) g/dL Hct 34.3 L (42-52) % Coagulation 07/18/20 Range/Units 03:22 INR 1.7 H (0.9-1.1) Diagnostic Findings Radiographs of the femur and knee demonstrate that hinged and stemmed total knee arthroplasty. There is a obliquely oriented fracture that starts just proximal to the most proximal extent of the femoral stem. There appears to be sufficient metaphyseal bone for internal fixation. The stem and hinged component prevents any attempted intramedullary fixation. PG Care Time/CCT Total # of Minutes Spent Total Time Spent with Patient: Total time spent is greater than 50% in coordination of care (as documented) at patient's floor/unit and/or counseling patient: Coding Level of Care Code 51321 Inpt Consult Level 4 Diagnoses Poornima-prosthetic femoral shaft fracture M97.8XXA; Z96.649
[2020-07-18 17:21] LABS: INR 1.6 (0.9-1.1); Prothrombin Time 15.3 Seconds (9.0-12.0)
--- NOTE | 2020-07-18 17:40 | XCELERA ---
[id number] \\[id number]
[2020-07-18] MEDS ORDERED: VANCOMYCIN CONSULT ACTIVE PRN (22:01)
[2020-07-19] MEDS ORDERED: MELATONIN 3 MG TAB PO PRN (00:05)
[2020-07-19] MEDS: HYDROmorphone INJ 0.5 MG/0.5 ML SYR IV PRN ×2 (01:28→05:27)
[2020-07-19 05:41] LABS: Hematocrit (blood only) 34.2 % (42-52); Hemoglobin 10.6 g/dL (14.0-18.0); Mean Corpuscular Hemoglobin 32.2 pg (25-34); Mean Platelet Volume 10.6 fL (7.4-10.4); Nucleated RBC # (auto) 0.27 K/uL (0-0); Platelet Count 624 K/uL (130-400); RDW Coefficient of Variation 18.2 % (11.5-14.5); RDW Standard Deviation 68.1 fL (36.4-46.3); Red Blood Count 3.29 M/uL (4.7-6.1); White Blood Count 13.21 K/uL (4.8-10.8)
[2020-07-19 05:55] LABS: INR 1.3 (0.9-1.1); Prothrombin Time 13.3 Seconds (9.0-12.0)
[2020-07-19] MEDS ORDERED: VANCOMYCIN HCL 1,000 MG/270 ML BAG IV ONE (06:00)
[2020-07-19] MEDS: LEVOTHYROXINE SODIUM 50 MCG TABLET PO SCH (06:19)
--- NOTE | 2020-07-19 06:19 | Electrocardiogram Report ---
Test Reason : Blood Pressure : / mmHG Vent. Rate : 092 BPM Atrial Rate : 093 BPM P-R Int : 000 ms QRS Dur : 088 ms QT Int : 366 ms P-R-T Axes : 000 -13 217 degrees QTc Int : 452 ms Poor data quality, interpretation may be adversely affected Atrial fibrillation Abnormal ECG When compared with ECG of 03-APR-2020 14:44, No significant change Confirmed by Urbano Morales ([id number]) on 07/19/2020 6:19:04 AM Referred By: REFERRED SELF Confirmed By:Urbano Morales
[2020-07-19] MEDS ORDERED: fentaNYL citrate 100 MCG/2 ML VIAL ONE (06:22)
[2020-07-19] MEDS ORDERED: BUPIVACAINE 0.25% 30 ML VIAL ONE (06:30)
[2020-07-19] MEDS ORDERED: BUPIVACAINE 0.5 % 5 MG/1 ML PF 10ML VIAL ONE (06:30)
[2020-07-19] MEDS ORDERED: ALBUMIN HUMAN 5% 12.5 GM/250 ML VIAL IV ONE (06:42)
[2020-07-19] MEDS ORDERED: CISATRACURIUM BESYLATE IV SOLN 2 MG/ML 10 ML VIAL IV ONE ×2 (06:42→12:25)
[2020-07-19 06:44] LABS: Albumin Globulin Ratio 0.5 (0.9-2); Albumin Level 2.7 gm/dl (3.4-5.0); BUN Creatinine Ratio 5.5 (10-20); Bilirubin,Total 1.9 mg/dl (0.2-1); Creatinine Clr Calc Pharmacy 15.3 ml/min; Est GFR (African American) 12.1; Est GFR (Non-African American) 10.4; Globulin 5.3 gm/dl (2.5-4.0); Potassium 4.6 mmol/L (3.5-5.1)
[2020-07-19] MEDS ORDERED: SODIUM CHLORIDE 0.9% 250 ML IV PRN ×2 (06:44→08:50)
[2020-07-19] MEDS ORDERED: ONDANSETRON INJ 2 MG/ML 2 ML VIAL IV PRN ×2 (06:45→12:10)
[2020-07-19] MEDS ORDERED: ATROPINE SULFATE 0.1 MG/ML 10ML SYR IV PRN (06:45)
[2020-07-19] MEDS ORDERED: fentaNYL citrate 100 MCG/2 ML VIAL IV PRN (06:45)
[2020-07-19] MEDS ORDERED: ePHEDrine sulfate 50 MG/ML AMP IV PRN (06:45)
[2020-07-19] MEDS ORDERED: BUPIVACAINE/EPINEPHRINE 0.5% MPF 1:200,000 30 ML VIAL ONE (06:48)
[2020-07-19] MEDS ORDERED: BACITRACIN INJ 50,000 UNIT VIAL ONE (06:48)
--- NOTE | 2020-07-19 06:55 | History & Physical Bridge Note ---
Date of Service July 19, 2020 History & Physical Bridge Note I have examined the patient, reviewed the History & Physical and in the interval since the performance of the History & Physical I have noted the following changes of clinical significance: no changes noted
[2020-07-19] MEDS ORDERED: VANCOMYCIN HCL 1000MG/20ML VIAL ONE (07:18)
[2020-07-19] MEDS ORDERED: EPOETIN ALFA 4,000 UNIT/ML VIAL IV SCH (08:00)
[2020-07-19] MEDS ORDERED: CALCIUM CHLORIDE 10% 10 ML SYR IV ONE (10:07)
[2020-07-19] MEDS ORDERED: AMIODARONE HCL INJ 50 MG/ML 3 ML VIAL IV ONE ×2 (10:20→12:25)
[2020-07-19] MEDS ORDERED: TRANEXAMIC ACID / 0.7% NACL 1,000 MG/100 ML BAG IV ONE (10:26)
[2020-07-19] MEDS ORDERED: TRANEXAMIC ACID / 0.7% NACL 1000MG/100ML BAG IV ONE (10:27)
[2020-07-19] MEDS ORDERED: ESMOLOL HCL INJ 10 MG/ML 10ML VIAL IV ONE ×2 (10:35→12:25)
[2020-07-19] MEDS ORDERED: AMIODARONE / D5W 360 MG/200 ML BAG IV ONE (10:35)
[2020-07-19] MEDS ORDERED: 0.2 MICRON FILTER SET 1 EA IV ONE (10:35)
[2020-07-19] MEDS ORDERED: MIDAZOLAM HCL 1 MG/ML 2ML VIAL ONE (10:49)
--- NOTE | 2020-07-19 10:50 | Fluoroscopy Report ---
FL femur RT 2V CLINICAL HISTORY: RT ORIF PERIPROSTHETIC FEMUR FX COMPARISON STUDY: Right femur radiographs July 18, 2020. FLUOROSCOPY TIME: 74.6 seconds. FLUOROSCOPIC IMAGES: 10 FINDINGS: Fluoroscopy was provided during internal fixation of the right femoral periprosthetic fract ure with plate and screws as well as several cerclage wires. Right knee arthroplasty is noted. Alignm ent of the fracture has improved. IMPRESSION: Fluoroscopy provided during internal fixation of the right femoral periprosthetic fractu re. ACT 112: Negative or not required by law. Electronically signed by: Yao Clement M.D. 07/19/2020 10:48 AM
--- NOTE | 2020-07-19 10:54 | Nephrology Progress Note ---
Date of Service July 19, 2020 Assessment & Plan (1) ESRD (end stage renal disease): ESRD on hemodialysis Wednesday, Wednesday, Wednesday. Admitted to the hospital with right periprosthetic femur fracture after a mechanical fall at home. He has been otherwise well, blood pressure, volume status, electrolyte acceptable. Electrolyte was acceptable this morning. --dialysis this afternoon as his regular schedule --epogen 4000 units x 1 dose during dialysis --dose medications for GFR less than 10, left arm nephrology precaution. --continue on renal vitamin and phosphate binders Will follow. (2) Poornima-prosthetic femoral shaft fracture: (3) Anemia: (4) Hypertension: Admission and Anticipated Discharge Date Admission Date: July 18, 2020 Subjective Mr. Merchant was off floor for surgery for right femur fracture this morning. Records are reviewed, blood pressure is slightly low. Electrolyte acceptable. Results & Data ([facility]) Vital Signs (Past 12 Hours) Vital Signs Temp Pulse Pulse Pulse Resp BP Pulse Ox 07/19/20 04:00 36.9 C 118 H 20 95/60 L 95 07/19/20 01:39 110 H 07/18/20 23:42 106 H 25 H 98 07/18/20 23:38 126 H 30 H 90 07/18/20 23:25 36.7 C 94 H 20 106/66 93 PG Care Time/CCT Total # of Minutes Spent Total Time Spent with Patient: Total time spent is greater than 50% in coordination of care (as documented) at patient's floor/unit and/or counseling patient: Coding Level of Care Code 54022 Subseq Hosp Care Lvl 2 Diagnoses ESRD (end stage renal disease) N18.6 Poornima-prosthetic femoral shaft fracture M97.8XXA; Z96.649 Anemia D64.9 Anemia type: unspecified type Hypertension I10 Hypertension type: essential hypertension (1) Anemia Anemia type: unspecified type Qualified Code(s): D64.9 - Anemia, unspecified (2) Hypertension Hypertension type: essential hypertension Qualified Code(s): I10 - Essential (primary) hypertension
--- NOTE | 2020-07-19 11:17 | Post Operative Brief Note ---
PG Immediate Post Op with CF Date of Surgery July 19, 2020 Pre & Post Diagnosis Operation Date: 07/19/20 07:00 Pre-Op Diagnosis: Right Distal Femur Fracture Post-Op Diagnosis: Right Distal Femur Fracture I identified the patient and participated in the time-out.: Yes Procedure Operation Date: 07/19/20 07:00 Actual Procedures p Right Open Reduction Internal Fixation Periprosthetic Femur Fracture(Right) - Myles Ryan MD Surgeon Myles Ryan MD Pressure Washer Miguel, PAC Estimated Blood Loss 1,100 Findings Consistent with Post-Op Diagnosis Specimens Specimen Description: Culture: 1. Right Thigh Tissue Culture 2. Right Thigh Culture Drains Fox Catheter Anesthesia Type General Complications none Disposition Accompanied Patient To Recovery: No Disposition: Surgical ICU
[2020-07-19] MEDS ORDERED: STAT IV Infusion **Titration per Protocol STA ×4 (11:39→17:13)
[2020-07-19 11:44] LABS: iSTAT Arterial Blood Gas HCO3 23 meg/L (19-24); iSTAT Arterial Blood Gas pCO2 44 mmHg (35-46); iSTAT Arterial Blood Gas pH 7.33 (7.35-7.45); iSTAT Arterial Blood Gas pO2 192 mmHg (80-95); iSTAT Carbon Dioxide 24 mmol/L (24-31); iSTAT Hematocrit 30 % (42-52); iSTAT Hemoglobin 10.2 g/dl (14.0-18.0); iSTAT Potassium 5.2 mmol/L (3.3-5.0); iSTAT Sodium 135 mmol/L (135-144)
[2020-07-19] MEDS: PHENYLEPHRINE HCL 20 MG in DEXTROSE 5% 500 ML IV SCH ×3 (11:51→14:45)
[2020-07-19] MEDS ORDERED: MIDAZOLAM HCL 1 MG/ML 2ML VIAL IV PRN (12:00)
[2020-07-19] MEDS ORDERED: bisacodyL 10 MG SUPP PR PRN (12:10)
[2020-07-19] MEDS ORDERED: VANCOMYCIN CONSULT ACTIVE PRN (12:10)
[2020-07-19] MEDS ORDERED: ALUMINUM/MAGNESIUM SUSP 30 ML UDC PO PRN (12:10)
[2020-07-19] MEDS ORDERED: oxyCODONE HCL IR 5 MG TAB (IMMEDIATE RELEASE) PO PRN (12:10)
[2020-07-19] MEDS ORDERED: NALOXONE HCL 0.4 MG/1 ML VIAL/CARP IV PRN (12:10)
[2020-07-19] MEDS ORDERED: HYDROmorphone INJ 0.5 MG/0.5 ML SYR IV PRN (12:10)
[2020-07-19] MEDS ORDERED: MAGNESIUM HYDROXIDE SUSP 30 ML UDC PO PRN (12:10)
[2020-07-19] MEDS ORDERED: SODIUM CHLORIDE 0.9% 1000ML 1,000 ML IV SCH (12:10)
[2020-07-19] MEDS ORDERED: METOCLOPRAMIDE HCL INJ 5 MG/ML 2 ML VIAL IV PRN (12:10)
[2020-07-19] MEDS: VASOPRESSIN 20 UNITS in 0.9 % SODIUM CHLORIDE 100 ML IV SCH ×2 (12:15→18:46)
[2020-07-19] MEDS ORDERED: PHARMACY GLYCEMIC MGMT CONSULT SCH (12:17)
[2020-07-19] MEDS: ASPIRIN 81 MG ECTAB PO SCH (12:18)
[2020-07-19] MEDS: allopurinoL 100 MG TAB PO SCH (12:18)
[2020-07-19] MEDS: METOPROLOL TARTRATE 25 MG TAB PO SCH (12:18)
[2020-07-19] MEDS: RASPBERRY SYRUP 5 ML UDP PO SCH ×4 (12:18→20:40)
[2020-07-19] MEDS: PANTOprazole 40 MG TAB PO SCH (12:18)
[2020-07-19] MEDS: VANCOMYCIN HCL 125 MG/2.5ML SOLN PO SCH ×4 (12:18→21:58)
[2020-07-19] MEDS ORDERED: PROPOFOL IV EMULSION 10 MG/ML 20 ML VIAL IV ONE (12:24)
[2020-07-19] MEDS ORDERED: LIDOCAINE HCL 2% 2 ML VIAL/AMP(20MG/ML) INFIL ONE (12:25)
[2020-07-19] MEDS ORDERED: MIDAZOLAM BOLUS FROM BAG IV PRN (12:25)
[2020-07-19] MEDS ORDERED: VASOPRESSIN 20 UNIT/ML VIAL ONE (12:26)
[2020-07-19] MEDS ORDERED: PHENYLEPHRINE 100MCG/ML 5ML SYR ONE (12:26)
[2020-07-19] MEDS ORDERED: PHENYLEPHRINE HCL 10 MG/ML VIAL ONE (12:26)
[2020-07-19] MEDS ORDERED: MIDAZOLAM HCL 125 MG/250 ML BAG IV SCH (12:30)
[2020-07-19 12:35] LABS: INR 1.4 (0.9-1.1); Partial Thromboplastin Ratio 1.2; Partial Thromboplastin Time 30.7 Seconds (21.0-31.0)
--- NOTE | 2020-07-19 12:36 | Anesthesiology Progress Note ---
Date of Service July 19, 2020 Assessment & Plan (1) Encounter for pre-operative examination: Arterial Line Note. Performed intraop 07/19/20. Date and time of procedure: Consent: Obtained prior to surgery. Time Out: A time-out was performed verifying correct patient with two identifiers, procedure, site, positioning, and special equipment (if needed). Monitors Attached: EKG BP Pulse Oximetry CO2 Side: Right Location: Radial Prep: Chloraprep x2 sterile drape sterile procedures used Ultrasound Guidance: Yes N Procedure Summary: 20 gauge angiocath advanced until return of bright red blood. Catheter threaded using seldinger technique with return of pulsatile, bright red blood. Catheter secured with tape and covered with occlusive dressing. Waveform consistent with correct arterial placement. After placement, normal perfusion was observed distal to the site of catheter placement. Of note, procedure was successful after fourth attempt. Ultrasound guidance used for all attempts. Patient had very calcified arteries and was difficult to obtain blood return. Dr. Garcia was ultimately successful in patients right radial artery. No issues with arterial line during procedure. Post-procedure: Patient tolerated the procedure well without apparent c omplications Present on Admission?: No Admission and Anticipated Discharge Date Admission Date: July 18, 2020 Subjective A line procedure note. Physical Exam Vital Signs: Last Vital Signs Temp 37.7 C H 07/19/20 12:10 Pulse 136 H 07/19/20 12:10 Resp 24 07/19/20 12:10 BP 84/59 L 07/19/20 12:10 Pulse Ox 92 07/19/20 12:10
[2020-07-19] MEDS: ACETAMINOPHEN 500 MG TAB PO SCH ×2 (12:40→21:58)
[2020-07-19 12:41] LABS: Mean Corpuscular Hgb Conc 32.7 g/dL (32-36); Mean Platelet Volume 10.9 fL (7.4-10.4); Platelet Count 495 K/uL (130-400)
--- NOTE | 2020-07-19 12:44 | Anesthesiology Progress Note ---
Date of Service July 19, 2020 Anesthesia Post Procedure Vital Signs Vital Signs: Temp Pulse Pulse Pulse Resp BP Pulse Ox 07/19/20 12:10 37.7 C H 136 H 24 84/59 L 92 07/19/20 11:54 37.6 C H 143 H 24 89/69 L 95 07/19/20 11:44 37.6 C H 147 H 18 112/72 96 07/19/20 11:37 133 H 19 99 07/19/20 11:34 128 H 18 84/68 L 100 07/19/20 11:24 37.1 C 123 H 18 111/85 100 07/19/20 04:00 36.9 C 118 H 20 95/60 L 95 07/19/20 01:39 110 H 07/18/20 23:42 106 H 25 H 98 07/18/20 23:38 126 H 30 H 90 07/18/20 23:25 36.7 C 94 H 20 106/66 93 07/18/20 20:01 101 H 18 101/65 96 07/18/20 19:33 102 H 16 108/64 94 07/18/20 19:28 36.5 C 117 H 24 104/59 L 92 07/18/20 19:20 36.4 C L 111 H 16 102/65 94 07/18/20 15:42 36.5 C 103 H 18 107/63 90 Pain Intensity Right Leg: Pain Intensity: 0 Transfer of Care Handoff Completed per policy Notes Patient Amnestic to Procedure: Yes Nausea / Vomiting: adequately controlled Pain: adequately controlled Airway Patency, RR, SpO2: see Notes below BP & HR: see Notes below Hydration State: stable & adequate Notes: Patient was aware he was a high risk for cardiovascular complications for this procedure given his comorbid conditions and the nature of the procedure. During the procedure, patient became more hypotensive and tachycardic with significant amount of blood loss during case. He was transfused aggressively with a total of 6units pRBCs, 2 units FFP, 1 gram calcium IV, albumin and minimal crystalloid. Given continued blood loss, decided to also administer 1 gram TXA. Fully aware patient has mechanical heart valve and had been anticoagulated but acute hemorrhage was felt to be a more pressing issue. Given that patient was in A fib with RVR, also gave 150mg IV amiodarone over 10 min IV. HR responded nicely to low 100's. BP was maintained with blood product replacement along with vasoactive medications. Given the large resuscitation, it was felt best to keep patient intubated and sedated and take him to the ICU. Full report was given to the ICU team. Of note, patient's arterial line failed to work upon transfer to his ICU bed and I attempted an additional radial artery without success. ICU team plans to possibly do a femoral arterial line and will attempt a left sided central line given that he has a right hemodialysis catheter. Patient was sedated for the transfer to the ICU but after he did open his eyes and was nodding his head yes and no appropriately to questions. Patient was left under the care of the ICU team and appreciate their care with him.
[2020-07-19] MEDS: fentaNYL DRIP 1,250 MCG/250 ML BAG IV SCH (12:49)
[2020-07-19 12:57] LABS: Albumin Globulin Ratio 0.7 (0.9-2); Albumin Level 2.5 gm/dl (3.4-5.0); BUN Creatinine Ratio 5.7 (10-20); Calcium 8.6 mg/dl (8.5-10.1); Creatinine Clr Calc Pharmacy 15.5 ml/min; Est GFR (African American) 12.2; Est GFR (Non-African American) 10.5; Globulin 3.8 gm/dl (2.5-4.0); Potassium 5.1 mmol/L (3.5-5.1); Total Protein 6.3 gm/dl (6.4-8.2); Troponin I 0.043 ng/ml (0-0.045)
[2020-07-19 13:06] LABS: ANC (manual) 8.51 K/uL (1.4-6.5); Basophils # (manual) 0.18 K/uL (0-0.2); Basophils % (manual) 0.9 %; Blast # (manual) 0.55 K/uL (0-0); Blast Cells % (manual) 2.8 %; Giant Platelets 2+; Hematocrit (blood only) 31.8 % (42-52); Hemoglobin 10.4 g/dL (14.0-18.0); Lymphocytes % (manual) 28.7 %; Mean Corpuscular Hemoglobin 31.2 pg (25-34); Mean Corpuscular Volume 95.5 fL (80-100); Metamyelocytes % (manual) 4.6 %; Monocytes # (manual) 1.62 K/uL (0.11-0.59); Monocytes % (manual) 8.3 %; Myelocytes # (manual) 1.99 K/uL (0-0); Myelocytes % (manual) 10.2 %; Neutrophils # (manual) 8.51 K/uL (1.4-6.5); Neutrophils % (manual) 43.6 %; Nucleated RBC # (auto) 1.78 K/uL (0-0); Nucleated RBC % (auto) 9.1 %; Other Cell Type % 0.9 %; Other Cells # (manual) 0.18 K/uL (0-0); RDW Coefficient of Variation 17.8 % (11.5-14.5); RDW Standard Deviation 60.9 fL (36.4-46.3); Red Blood Count 3.33 M/uL (4.7-6.1); White Blood Count 19.52 K/uL (4.8-10.8)
--- NOTE | 2020-07-19 13:10 | Procedure Note ---
Procedure Note Date of Service July 19, 2020 Note Left FEMORAL CENTRAL LINE PROCEDURE NOTE: Procedure: Femoral Central Line Placement Indication: Central Drug Administration, Poor Venous Access, Multiple Lab Draws Necessary, etc. Anesthesia: Continuous Versed and fentanyl were infusing/8 mL lidocaine 1% Procedure was done emergently due to patient's profound hypotension and hemorrhagic shock. A time-out was completed verifying correct patient, procedure, site, positioning, and implants(s) or special equipment if applicable. Patients left groin was cleansed and draped in the typical sterile fashion using Chloraprep. The Femoral Vein and Femoral Artery were identified using ultrasound. The superficial tissue was anesthetized using 8 mL of 1% lidocaine without epinephrine under direct visualization with the ultrasound. After adequate anesthetization was achieved, the Femoral Vein was cannulated under direct ultrasound guidance using an introducer needle on a syringe. Good venous blood return was maintained prior to removal of syringe from introducer needle. Using Seldinger Technique, a guide wire was advanced through the introducer needle without resistance. The introducer needle was removed and ultrasound images were obtained of the guide wire within the Femoral Vein and saved to the patients medical record. A small incision was made in penetrating fashion at the guide wire insertion site utilizing an 11 blade scalpel. The dilator was advanced to the vessel without resistance. The dilator was exchanged for the triple lumen catheter which was advanced into the vessel without resistance. The guide wire was removed intact from the catheter without issue. Claves were placed on each catheter tip with confirmation of good blood flow from each lumen. Each port was easily flushed with sterile saline. The catheter was placed at the hub and sutured in place. BioPatch was applied to the catheter and a sterile Tegaderm dressing was applied over the catheter with careful attention to sterility. Patient tolerated procedure well. No immediate complications were met. Images obtained are saved for permanent record Procedural Ultrasound Guidance utilized Coding CPT Codes Tubes, Drains, and Vasc Access - Tubes, Drains, and Vasc Access: [id number] Place catheter in vein superior or inferior vena cava ([id number]) Tubes, Drains, and Vasc Access - Tubes, Drains, and Vasc Access: [id number] Ultrasonic Guide For Needle Placement ([id number]) [facility] [place] Codes (Charges) Tubes, Drains, and Vasc Access Procedure 3: Tubes, Drains, and Vasc Access: [id number] Place catheter in vein superior or inferior vena cava Procedure 4: Tubes, Drains, and Vasc Access: [id number] Ultrasonic Guide For Needle Placement
--- NOTE | 2020-07-19 13:10 | Operative Report ---
Post Operative Report Pre & Post Diagnosis Operation Date: 07/19/20 07:00 Pre-Op Diagnosis: Right periprosthetic distal Femur Fracture Post-Op Diagnosis: Right periprosthetic distal Femur Fracture I identified the patient and participated in the time-out.: Yes Procedure Operation Date: 07/19/20 07:00 Actual Procedures p Right Open Reduction Internal Fixation Periprosthetic Femur Fracture(Right) - Myles Ryan MD Surgeon Myles Ryan MD Anesthesiologist And Critical Care Miguel, PAC Estimated Blood Loss 1,100 Findings Consistent with Post-Op Diagnosis Fluids 6 units of packed red blood cells, 2 units FFP, 800 cc of normal saline, 500 cc of albumin. Specimens None. Drains None Anesthesia Type General Complications none Disposition Accompanied Patient To Recovery: No Disposition: Surgical ICU Indications Patient is a 75-year-old gentleman with multiple medical comorbidities who is status post a right knee replacement and subsequently revision of a knee replacement [place] aseptic [place] [address] Aceves. He is status post a left above-knee amputation for chronic infection a previous left knee replacement. He sustained a fall out of his bed and injured his right femur yesterday morning. Was brought to emergency room where x-rays revealed displaced periprosthetic femur fracture. Patient is admitted by the medicine service, medically optimized, and strongly desired fixation of his femur to improve pain control and mobilization. Description of Procedure Operative implants consist of: 1. Synthes right 14 hole curved distal femoral periarticular locking plate. 2. 4.5 fully threaded cortical screws x2. 3. 5.0 cortical locking screws x17. Patient was taken to the operating room, identified, placed on the operating table supine position but all contractors were properly padded. IV antibiotics were provided by the anesthesia team. A general anesthetic was implemented. The right lower extremity was then scrubbed with Hibiclens, prepped with ChloraPrep and then draped in the usual sterile fashion. X-ray was first brought in to evaluate the fracture. Under x-ray evaluation the fracture was clearly much more comminuted and severe than the preoperative films. The medial fragment had a butterflied and broken off. There is more extensive distal comminution as well. Knowing the patient's strong desire to preserve this leg and the function we elected proceed with open reduction internal fixation as per the designated plan. A direct lateral approach of the femur was then performed through longitudinal incision over the lateral aspect the femur and extending towards the tibial tubercle laterally. Sharp dissection was got through subcutaneous tissue down to the IT band. The IT band was incised longitudinally. The underlying vastus lateralis muscle was then retracted anteriorly. We did enter a chronic appearing hematoma the anterior quad with what appeared to be significant muscle necrosis. This was curetted out we did send some of this tissue for a culture as it was quite old and quite necrotic. This seemed to be separate from the fracture site. There was quite a bit of scarring distally around the knee replacement we had cauterized this and skeletonized the very distal femur in order to immobilize the quad in order to adequately reduce the fracture. With quite a bit of hemorrhage initially and we spent quite a bit of time of coagulating all while large bleeders. I did inject locally with about a total of 50 cc of half percent Marcaine with epinephrine to assist with hemostasis. The fracture was exposed. We applied some longitudinal traction. I spent quite a bit of time using multiple reduction clamps to reduce the fracture and hold it in a reduced position. I then placed for Synthes cables around the fracture throughout its length in order to stabilize it temporarily. These were crimped and tightened. I then selected a 14 hole right curved distal femoral locking plate. I initially fixed this distally with a two 4.5 cortical screws to snug the plate to the bone and proximally with a single 4.5 cortical screw. X-rays brought in and the hardware is appropriately positioned. I then placed multiple locking screws distally as well as proximally. I did remove the distal cortical screws and replace them with two 5.0 locking screws. Do the unlimited fixation distally I placed 2 additional cables around the distal aspect of the fracture and around the distal plate as our fixation was limited by the large nature of the intramedullary component of this femoral implant. Once this was complete some final x-rays were obtained. I irrigated extensively. I did use 1 g of vancomycin powder in placed some in the fracture site and then there was a large area of chronic hematoma and muscle necrosis anteriorly which I evacuated and curetted out and I placed some antibiotic in that as well. The IT band was then closed with a #1 Vicryl suture in running fashion for subcutaneous tissue was then closed with 2-0 Vicryl suture in a buried interrupted fashion skin was closed with skin gigi. Leg was then cleaned and dried a sterile dressing composed of a Prevena wound VAC was placed followed by a sterile cast padding and an Janak bandage. Knee immobilizer was applied. The patient was then taken off the OR table and put on the transport table. He was transferred to the ICU for postoperative care and left intubated. Patient tolerated procedure fairly well. He did receive quite a bit of fluid and required some blood pressure support by the anesthesia team. He was transferred to the ICU in guarded condition. I attest to the content of the Intraoperative Record and any orders documented therein. Any exceptions are noted below.
--- NOTE | 2020-07-19 13:12 | Procedure Note ---
Procedure Note Date of Service July 19, 2020 Note Left femoral artery line insertion Procedure was done emergently as patient was in hemorrhagic shock and intubated. A time out was performed. My hands were washed immediately prior to the procedure. I wore a surgical cap, mask with protective eyewear, sterile gown and sterile gloves throughout the procedure. The left inguinal region was prepped using chlorhexidine scrub and draped in sterile fashion using a three quarter sheet drape and sterile towels. The femoral pulse was identified with the ultrasound. Anesthesia was achieved using 1% lidocaine. Palpating the femoral pulse throughout the procedure, the introducer needle was inserted into the femoral artery. Arterial blood was withdrawn. The syringe was removed and a guidewire was advanced through the needle into the femoral artery. The needle wa s exchanged over the wire for an arterial catheter. The wire was removed and the catheter was secured to the skin using a suture. The patient tolerated the procedure without any hemodynamic compromise. At time of procedure completion, the catheter was connected to the cardiac cath technician and calibrated. Appropriate waveform and blood pressure tracing was observed. Estimated blood loss is 2 mL. Coding CPT Codes Tubes, Drains, and Vasc Access - Tubes, Drains, and Vasc Access: [id number] Place Catheter In Artery ([id number]) Tubes, Drains, and Vasc Access - Tubes, Drains, and Vasc Access: [id number] Ultrasound Guidance For Vascular ([id number]) [facility] Procedure Codes (Charges) Tubes, Drains, and Vasc Access Procedure 1: Tubes, Drains, and Vasc Access: [id number] Place Catheter In Artery Procedure 2: Tubes, Drains, and Vasc Access: [id number] Ultrasound Guidance For Vascular
--- NOTE | 2020-07-19 13:35 | Hospitalist Progress Note ---
Date of Service July 19, 2020 Assessment & Plan (1) Poornima-prosthetic femoral shaft fracture: this was mechanical fall, he cannot sleep at night so he will sit up with right leg hanging off bed for comfort he fell asleep while sitting up and fell off the bed, right leg hit and twisted on impact and he had immediate pain Surgical correction by Dr. Ryan on 07/19 EBL was about 1 liter typed and crossed, will discuss with ICU about transfusion (2) Afib: INR 1.7 on admission, gave Vitamin K 2.5mg IV, hold Coumadin repeat INR is 1.3 this morning, needs heparin drip once okay with orthopedic surgery went into RVR during surgery, treated with amiodarone bolus/drip now in ICU BP is low, lost a lot of blood, likely volume resuscitation will help bring HR down (3) History of mechanical aortic valve replacement: 1997, takes Coumadin, INR was only 1.7 on admission reversed INR, will need to start heparin drip once okay with orthopedics (4) Acute electrocardiogram changes: ST depressions notes in anterior leads no chest pain or pressure, troponin 0.02 for three sets echo with preserved left ventricle EF, RV is dilated, AV in good position (5) ESRD (end stage renal disease): consult Dr. Raymond electrolytes normal and appears euvolemic he had a full HD session on 07/17 will see if he can get HD today given his low blood pressure after surgery 1800mL fluid restriction, he admits that he drinks too much water at home check BMP daily had right tunneled HD catheter, appears clean he says he recently had vein mapping of left arm, plan for fistula next month with Dr Larson (6) C. difficile diarrhea: recovering from ongoing infection down to Vancomycin once a day stools are starting to be more formed and he has control contact precautions (7) Morbid obesity with BMI of 40.0-44.9, adult: (8) Hyperlipidemia: (9) Hypertension: (10) Anemia: Hb 10.4 this morning lost about 1L of blood with surgery will type/cross and discuss transfusion with ICU (11) GERD (gastroesophageal reflux disease): Admission and Anticipated Discharge Date Admission Date: July 18, 2020 Subjective patient intubated and sedated in ICU EBL was 1L, d/w Dr. Ryan, more complicated surgery than anticipated, lots of bone fragments overall he said surgery was successful in ICU he is hypotensive, AFib RVR with rates in 120-130s on amiodarone drip Dr. Bass is now consulted, he will place left femoral line for access since we cannot use the left UE with plans for fistula Review of Systems Review of Systems: Unobtainable due to endotracheal tube and Unobtainable due to reduced consciousness Physical Exam Constitutional: well developed and + morbidly obese; no acute distress Neck: trachea midline, no thyromegaly Respiratory: normal respiratory effort, lungs clear to auscultation Cardiovascular: RRR, no murmur, no edema Chest (Breasts): Chest: + vascular access device or port (right tunneled HD catheter) Gastrointestinal (Abdomen): normal bowel sounds, soft, nontender, no hepatosplenomegaly Musculoskeletal: Head/Neck/Chest: normocephalic, head atraumatic and neck supple Extremities: + limited ROM of extremities, + abnormal strength (very weak, cannot transfer) and + amputation noted (left BKA); no cyanosis, no clubbing and no petechiae Skin: no rashes, warm and dry Neurologic: patellar DTR's 2+ bilat, sensation intact and PERRL, EOMI, accommodation nl, no face palsy, no dysarthria Psychiatric: A+Ox3, euthymic affect Lymphatic: no cervical or axillary lymphadenopathy Results & Data Results & Data ([facility]) Vital Signs (Past 12 Hours) Vital Signs Temp Pulse Pulse Pulse Resp BP Pulse Ox 07/19/20 12:10 37.7 C H 136 H 24 84/59 L 92 07/19/20 11:54 37.6 C H 143 H 24 89/69 L 95 07/19/20 11:44 37.6 C H 147 H 18 112/72 96 07/19/20 11:37 133 H 19 99 07/19/20 11:34 128 H 18 84/68 L 100 07/19/20 11:24 37.1 C 123 H 18 111/85 100 07/19/20 04:00 36.9 C 118 H 20 95/60 L 95 07/19/20 01:39 110 H Laboratory Results Laboratory Results - last 24 hr 07/18/20 07/18/20 07/18/20 11:37 16:47 16:54 WBC RBC Hgb POC Hgb Hct POC Hct MCV MCH MCHC RDW Std Deviation RDW Coeff of Jose Plt Count MPV Absolute Nucleated RBC Nucleated RBC % (auto) Neutrophils % (Manual) Lymphocytes % (Manual) Monocytes % (Manual) Basophils % (Manual) Metamyelocytes % (Man) Myelocytes % (Man) Blast Cells % (Manual) Other Cells % Neutrophils # (Manual) Total Absolute Neuts Lymphocytes # (Manual) Total Abs Lymphocytes Monocytes # (Manual) Basophils # (Manual) Metamyelocytes # (Man) Myelocytes # (Manual) Blast Cells # (Man) Other Cells # Giant Platelets PT 15.3 H INR 1.6 H APTT PTT Ratio POC pH POC pCO2 POC pO2 POC HCO3 POC Total CO2 POC Base Excess POC ABG O2 Sat POC Sodium Sodium POC Potassium Potassium Chloride Carbon Dioxide Anion Gap BUN Creatinine Est Cr Clr Drug Dosing Est GFR ( Amer) Est GFR (Non-Af Amer) BUN/Creatinine Ratio Glucose POC Glucose Calcium Total Bilirubin AST ALT Alkaline Phosphatase Troponin I 0.027 Total Protein Albumin Globulin Albumin/Globulin Ratio Nasal Screen MRSA (PCR) Blood Type O Positive Blood Type Recheck Antibody Screen NEGATIVE Crossmatch See Detail 07/18/20 07/19/20 07/19/20 Unknown 05:20 05:20 WBC 13.21 H RBC 3.29 L Hgb 10.6 L POC Hgb Hct 34.2 L POC Hct MCV 104.0 H MCH 32.2 MCHC 31.0 L RDW Std Deviation 68.1 H RDW Coeff of Jose 18.2 H Plt Count 624 H MPV 10.6 H Absolute Nucleated RBC 0.27 H Nucleated RBC % (auto) 2.0 Neutrophils % (Manual) Lymphocytes % (Manual) Monocytes % (Manual) Basophils % (Manual) Metamyelocytes % (Man) Myelocytes % (Man) Blast Cells % (Manual) Other Cells % Neutrophils # (Manual) Total Absolute Neuts Lymphocytes # (Manual) Total Abs Lymphocytes Monocytes # (Manual) Basophils # (Manual) Metamyelocytes # (Man) Myelocytes # (Manual) Blast Cells # (Man) Other Cells # Giant Platelets PT 13.3 H INR 1.3 H APTT PTT Ratio POC pH POC pCO2 POC pO2 POC HCO3 POC Total CO2 POC Base Excess POC ABG O2 Sat POC Sodium Sodium POC Potassium Potassium Chloride Carbon Dioxide Anion Gap BUN Creatinine Est Cr Clr Drug Dosing Est GFR ( Amer) Est GFR (Non-Af Amer) BUN/Creatinine Ratio Glucose POC Glucose Calcium Total Bilirubin AST ALT Alkaline Phosphatase Troponin I Total Protein Albumin Globulin Albumin/Globulin Ratio Nasal Screen MRSA (PCR) Negative Blood Type Blood Type Recheck Antibody Screen Crossmatch 07/19/20 07/19/20 07/19/20 05:20 05:20 06:38 WBC RBC Hgb POC Hgb Hct POC Hct MCV MCH MCHC RDW Std Deviation RDW Coeff of Jose Plt Count MPV Absolute Nucleated RBC Nucleated RBC % (auto) Neutrophils % (Manual) Lymphocytes % (Manual) Monocytes % (Manual) Basophils % (Manual) Metamyelocytes % (Man) Myelocytes % (Man) Blast Cells % (Manual) Other Cells % Neutrophils # (Manual) Total Absolute Neuts Lymphocytes # (Manual) Total Abs Lymphocytes Monocytes # (Manual) Basophils # (Manual) Metamyelocytes # (Man) Myelocytes # (Manual) Blast Cells # (Man) Other Cells # Giant Platelets PT INR APTT PTT Ratio POC pH POC pCO2 POC pO2 POC HCO3 POC Total CO2 POC Base Excess POC ABG O2 Sat POC Sodium Sodium 136 POC Potassium Potassium 4.6 Chloride 100 Carbon Dioxide 30 Anion Gap 6.0 BUN 27 H D Creatinine 5.00 H* D Est Cr Clr Drug Dosing 15.3 Est GFR ( Amer) 12.1 Est GFR (Non-Af Amer) 10.4 BUN/Creatinine Ratio 5.5 L Glucose 104 H POC Glucose 109 H Calcium 9.0 Total Bilirubin 1.9 H AST 29 ALT 11 L Alkaline Phosphatase 207 H Troponin I Total Protein 8.0 Albumin 2.7 L Globulin 5.3 H Albumin/Globulin Ratio 0.5 L Nasal Screen MRSA (PCR) Blood Type Blood Type Recheck O Positive Antibody Screen Crossmatch 07/19/20 07/19/20 07/19/20 10:17 11:53 11:53 WBC 19.52 H RBC 3.33 L Hgb 10.4 L POC Hgb 10.2 L Hct 31.8 L POC Hct 30 L MCV 95.5 D MCH 31.2 MCHC 32.7 RDW Std Deviation 60.9 H RDW Coeff of Jose 17.8 H Plt Count 495 H MPV 10.9 H Absolute Nucleated RBC 1.78 H Nucleated RBC % (auto) 9.1 Neutrophils % (Manual) 43.6 Lymphocytes % (Manual) 28.7 Monocytes % (Manual) 8.3 Basophils % (Manual) 0.9 Metamyelocytes % (Man) 4.6 Myelocytes % (Man) 10.2 Blast Cells % (Manual) 2.8 Other Cells % 0.9 Neutrophils # (Manual) 8.51 H Total Absolute Neuts 8.51 H Lymphocytes # (Manual) 5.60 H Total Abs Lymphocytes 5.60 H Monocytes # (Manual) 1.62 H Basophils # (Manual) 0.18 Metamyelocytes # (Man) 0.90 H Myelocytes # (Manual) 1.99 H Blast Cells # (Man) 0.55 H Other Cells # 0.18 H Giant Platelets 2+ PT INR APTT PTT Ratio POC pH 7.33 L POC pCO2 44 POC pO2 192 H POC HCO3 23 POC Total CO2 24 POC Base Excess -3.0 POC ABG O2 Sat 100.0 H POC Sodium 135 Sodium 139 POC Potassium 5.2 H Potassium 5.1 Chloride 105 Carbon Dioxide 22 Anion Gap 12.0 H BUN 28 H Creatinine 4.95 H* Est Cr Clr Drug Dosing 15.5 Est GFR ( Amer) 12.2 Est GFR (Non-Af Amer) 10.5 BUN/Creatinine Ratio 5.7 L Glucose 169 H POC Glucose Calcium 8.6 Total Bilirubin 3.0 H D AST 30 ALT 11 L Alkaline Phosphatase 149 H Troponin I 0.043 Total Protein 6.3 L D Albumin 2.5 L Globulin 3.8 Albumin/Globulin Ratio 0.7 L Nasal Screen MRSA (PCR) Blood Type Blood Type Recheck Antibody Screen Crossmatch 07/19/20 07/19/20 11:53 13:27 WBC RBC Hgb POC Hgb Hct POC Hct MCV MCH MCHC RDW Std Deviation RDW Coeff of Jose Plt Count MPV Absolute Nucleated RBC Nucleated RBC % (auto) Neutrophils % (Manual) Lymphocytes % (Manual) Monocytes % (Manual) Basophils % (Manual) Metamyelocytes % (Man) Myelocytes % (Man) Blast Cells % (Manual) Other Cells % Neutrophils # (Manual) Total Absolute Neuts Lymphocytes # (Manual) Total Abs Lymphocytes Monocytes # (Manual) Basophils # (Manual) Metamyelocytes # (Man) Myelocytes # (Manual) Blast Cells # (Man) Other Cells # Giant Platelets PT 14.0 H INR 1.4 H APTT 30.7 PTT Ratio 1.2 POC pH 7.31 L POC pCO2 43 POC pO2 114 H POC HCO3 22 POC Total CO2 23 L POC Base Excess -5.0 POC ABG O2 Sat 98.0 H POC Sodium Sodium POC Potassium Potassium Chloride Carbon Dioxide Anion Gap BUN Creatinine Est Cr Clr Drug Dosing Est GFR ( Amer) Est GFR (Non-Af Amer) BUN/Creatinine Ratio Glucose POC Glucose Calcium Total Bilirubin AST ALT Alkaline Phosphatase Troponin I Total Protein Albumin Globulin Albumin/Globulin Ratio Nasal Screen MRSA (PCR) Blood Type Blood Type Recheck Antibody Screen Crossmatch Medications Administered Current Inpatient Medications Acetaminophen (Acetaminophen 325 Mg Tab) 650 mg PO Q4H PRN PRN Reason: Pain or Fever Stop: 08/17/20 10:16 Acetaminophen (Acetaminophen 500 Mg Tab) 1,000 mg PO Q8 [facility] Stop: 08/18/20 13:59 Last Admin: 07/19/20 12:40 Dose: Not Given Documented by: Al Hydrox/Mg Hydrox/Simethicone (Aluminum/Magnesium Susp 30 Ml Udc) 15 ml PO Q4H PRN PRN Reason: Heartburn Stop: 08/18/20 12:09 Allopurinol (Allopurinol 100 Mg Tab) 200 mg PO QAM [facility] Stop: 08/17/20 10:16 Last Admin: 07/19/20 12:18 Dose: Not Given Documented by: Aspirin (Aspirin 81 Mg Ectab) 81 mg PO QAM [facility] Stop: 08/17/20 10:16 Last Admin: 07/19/20 12:18 Dose: Not Given Documented by: Atropine Sulfate (Atropine Sulfate 0.1 Mg/Ml 10ml Syr) 0.5 mg IV Q1M PRN PRN Reason: PACU Use-HR<40 &/or Bradycardi Stop: 07/19/20 14:45 Bisacodyl (Bisacodyl 10 Mg Supp) 10 mg [place] DAILY PRN PRN Reason: Constipation Stop: 08/18/20 12:09 Docusate Sodium (Docusate Sodium 100 Mg Cap) 100 mg PO BID [facility] Stop: 08/18/20 20:59 Ephedrine Sulfate (Ephedrine Sulfate 50 Mg/Ml Amp) 5 mg IV Q5M PRN PRN Reason: PACU Use Only-SBP<90 mmHg Stop: 07/19/20 14:45 Epoetin Moises (Epoetin Moises 4,000 Unit/Ml Vial) 4,000 units IV TODAY@0800 [facility] Stop: 07/19/20 18:00 Fentanyl Citrate (Fentanyl Citrate 100 Mcg/2 Ml Vial) 25 mcg IV Q5M PRN PRN Reason: PACU Use Only-Pain Stop: 07/19/20 14:45 Last Admin: 07/19/20 12:14 Dose: 25 mcg Documented by: Fentanyl Citrate (Fentanyl Bolus From Bag) 50 mcg IV Q60M PRN PRN Reason: Pain or Agitation Stop: 08/02/20 12:24 Hydromorphone HCl (Hydromorphone Inj 0.5 Mg/0.5 Ml Syr) 0.5 mg IV Q4 PRN PRN Reason: Severe Pain Stop: 08/01/20 10:16 Last Admin: 07/19/20 05:27 Dose: 0.5 mg Documented by: Hydromorphone HCl (Hydromorphone Inj 0.5 Mg/0.5 Ml Syr) 0.5 mg IV Q4H PRN PRN Reason: Pain or Pre PT Stop: 08/02/20 12:09 Sodium Chloride (Nss) 250 mls @ 15 mls/hr IV .[id number] PRN PRN Reason: For Transfusion Stop: 07/19/20 16:44 Sodium Chloride (Nss) 250 mls @ 15 mls/hr IV .[id number] PRN PRN Reason: For Transfusion Stop: 07/19/20 18:51 Tranexamic Acid (Tranexamic Acid / 0.7% Nacl) 1,000 mg in 100 mls @ 10.59 mls/hr IV .INTRAOP ONE Stop: 07/19/20 19:52 Last Admin: 07/19/20 12:18 Dose: Not Given Documented by: Amiodarone HCl/Dextrose (Nexterone / D5w) 360 mg in 200 mls @ 33.333 mls/hr IV ONE ONE; Protocol Stop: 07/19/20 16:34 Last Admin: 07/19/20 11:52 Dose: 1 mg/min, 33.3 mls/hr Documented by: Phenylephrine HCl 20 mg/ (Dextrose) 502 mls @ 398.714 mls/hr IV .Q1H16M [facility]; Protocol Stop: 08/18/20 11:44 Last Admin: 07/19/20 12:36 Dose: 2.5 mcg/kg/min, 398.7 mls/hr Documented by: Vasopressin 20 units/ Sodium (Chloride) 101 mls @ 12.12 mls/hr IV .Q8H20M [facility] Stop: 08/18/20 12:14 Last Admin: 07/19/20 12:15 Dose: 0.04 unit/min, 12.1 mls/hr Documented by: Sodium Chloride (Nss 1000ml) 1,000 mls @ 100 mls/hr IV .Q10H [facility] Stop: 07/20/20 06:00 Last Admin: 07/19/20 12:37 Dose: Not Given Documented by: Vancomycin HCl 1,500 mg/ (Sodium Chloride) 530 mls @ 200 mls/hr IV Q12H [facility] Stop: 07/19/20 21:08 Tranexamic Acid (Tranexamic Acid / 0.7% Nacl) 1,000 mg in 100 mls @ 600 mls/hr IV Q6H [facility] Stop: 07/19/20 17:39 Midazolam HCl (Versed) 125 mg in 250 mls @ 2 mls/hr IV .Q96H [facility]; Protocol Stop: 08/18/20 12:29 Last Admin: 07/19/20 12:50 Dose: 2 mg/hr, 4 mls/hr Documented by: Fentanyl Citrate (Fentanyl Drip) 1,250 mcg in 250 mls @ 5 mls/hr IV .Q50H [facility]; Protocol Stop: 08/02/20 12:29 Last Admin: 07/19/20 12:49 Dose: 25 mcg/hr, 5 mls/hr Documented by: Levothyroxine Sodium (Levothyroxine Sodium 50 Mcg Tablet) [facility]: 08/17/20 10:44 Last Admin: 07/19/20 06:19 Dose: Not Given Documented by: Magnesium Hydroxide (Magnesium Hydroxide Susp 30 Ml Udc) 30 ml PO Q6H PRN PRN Reason: Constipation Stop: 08/18/20 12:09 Melatonin (Melatonin 3 Mg Tab) 3 mg PO HS PRN PRN Reason: Sleep Stop: 08/18/20 00:04 Metoclopramide HCl (Metoclopramide Hcl Inj 5 Mg/Ml 2 Ml Vial) 10 mg IV Q6H PRN PRN Reason: Nausea And Vomiting Stop: 08/18/20 12:09 Metoprolol Tartrate (Metoprolol Tartrate 25 Mg Tab) 75 mg PO QAM [facility] Stop: 08/17/20 10:16 Last Admin: 07/19/20 12:18 Dose: Not Given Documented by: Midazolam HCl (Midazolam Hcl 1 Mg/Ml 2ml Vial) 1 mg IV Q2H PRN PRN Reason: RASS goal -1 Stop: 08/18/20 11:59 Last Admin: 07/19/20 12:14 Dose: 1 mg Documented by: Midazolam HCl (Midazolam Bolus From Bag) 2 mg IV Q60M PRN PRN Reason: Sedation Stop: 08/18/20 12:24 Miscellaneous Information (Pharmacy Glycemic Mgmt Consult) 1 ea N/A UD [facility] Multivitamins (Multivitamin Tab) 1 tab PO QAM [facility] Stop: 08/19/20 08:59 Naloxone HCl (Naloxone Hcl 0.4 Mg/1 Ml Vial/Carp) 0.1 mg IV Q5M PRN PRN Reason: Oversedation/Resp Depression Stop: 08/18/20 12:09 Ondansetron HCl (Ondansetron Inj 2 Mg/Ml 2 Ml Vial) 4 mg IV Q4H PRN PRN Reason: Nausea Stop: 08/17/20 13:52 Ondansetron HCl (Ondansetron Inj 2 Mg/Ml 2 Ml Vial) 4 mg IV ONCE PRN PRN Reason: PACU Use Only-Nausea/Vomiting Stop: 07/19/20 14:45 Oxycodone HCl (Oxycodone Hcl Ir 5 Mg Tab (Immediate Release)) 5 mg PO Q6 PRN PRN Reason: Pain Stop: 08/01/20 10:16 Oxycodone HCl (Oxycodone Hcl Ir 5 Mg Tab (Immediate Release)) 5 - 10 mg PO Q4H PRN PRN Reason: Pain or Pre PT Stop: 08/02/20 12:09 Pantoprazole Sodium (Pantoprazole 40 Mg Tab) 40 mg PO QAM [facility] Stop: 08/17/20 10:16 Last Admin: 07/19/20 12:18 Dose: Not Given Documented by: Raspberry (Raspberry Syrup 5 Ml Udp) 5 ml PO QID [facility] Stop: 08/01/20 12:59 Last Admin: 07/19/20 12:39 Dose: Not Given Documented by: Sennosides (Senna 8.6 Mg Tab) 17.2 mg PO HS [facility] Stop: 08/18/20 20:59 Vancomycin HCl (Vancomycin Hcl 125 Mg/2.5ml Soln) 125 mg PO QID [facility] Stop: 08/17/20 12:59 Last Admin: 07/19/20 12:40 Dose: Not Given Documented by: PG Care Time/CCT Total # of Minutes Spent Total Time Spent with Patient: Total time spent is greater than 50% in coordination of care (as documented) at patient's floor/unit and/or counseling patient: Coding Level of Care Code 72594 Subseq Hosp Care Lvl 3 Diagnoses Poornima-prosthetic femoral shaft fracture M97.8XXA; Z96.649 Afib I48.91 History of mechanical aortic valve replacement Z95.2 Acute electrocardiogram changes R94.31 ESRD (end stage renal disease) N18.6 C. difficile diarrhea A04.72 Morbid obesity with BMI of 40.0-44.9, adult E66.01; Z68.41 Hyperlipidemia E78.5 Hyperlipidemia type: unspecified Hypertension I10 Hypertension type: essential hypertension Anemia D64.9 Anemia type: unspecified type GERD (gastroesophageal reflux disease) K21.9 Esophagitis presence: esophagitis presence not specified (1) Hyperlipidemia Hyperlipidemia type: unspecified Qualified Code(s): E78.5 - Hyperlipidemia, unspecified (2) Hypertension Hypertension type: essential hypertension Qualified Code(s): I10 - Essential (primary) hypertension (3) Anemia Anemia type: unspecified type Qualified Code(s): D64.9 - Anemia, unspecified (4) GERD (gastroesophageal reflux disease) Esophagitis presence: esophagitis presence not specified Qualified Code(s): K21.9 - Gastro-esophageal reflux disease without esophagitis
[2020-07-19 13:41] LABS: iSTAT Arterial Blood Gas HCO3 22 meg/L (19-24); iSTAT Arterial Blood Gas pCO2 43 mmHg (35-46); iSTAT Arterial Blood Gas pH 7.31 (7.35-7.45); iSTAT Arterial Blood Gas pO2 114 mmHg (80-95); iSTAT Carbon Dioxide 23 mmol/L (24-31)
[2020-07-19] MEDS: PHENYLEPHRINE HCL IV SCH ×3 (14:19→23:37)
[2020-07-19] MEDS: DEXTROSE 5% IV SCH ×3 (14:19→23:37)
--- NOTE | 2020-07-19 14:38 | Critical Care Consultation ---
Date of Consultation July 19, 2020 Assessment & Plan (1) Hemorrhagic shock: 75-year-old male with past medical history of A. fib, mechanical aortic valve, ESRD who presented to the hospital with a periprosthetic femoral shaft fracture and underwent open reduction today. He had hemorrhagic shock during the surgery and lost 1.1 L of blood. Neurologic: Currently sedated with Versed and fentanyl. Appears to be following commands. Pulmonary: Requiring minimal vent settings at this time. High likelihood of developing fluid overload and CHF. Cardiovascular: Hemorrhagic shock. Appears to be euvolemic at present. Hemoglobin is currently 10. Continue phenylephrine and wean to maintain mean arterial pressure greater than 65. Continue vasopressin. We will hold on heparin drip at this time given the hemorrhagic shock. We will need to start as soon as possible given his mechanical aortic valve and history of atrial fibrillation. Received amiodarone intraoperatively. Gastrointestinal: N.p.o. for the time being OG tube in place. Renal: We will hold on dialysis today given his hemorrhagic shock state. Infectious disease: No obvious infectious etiology. OR cultures pending. Hematologic: Hemorrhagic shock as above. Transfuse hemoglobin to maintain above 7. Received TXA and vitamin K. Endocrine: No issues at present Lines and tubes: Peripheral IVs, ETT, left femoral arterial line left femoral central line in place. VTE prophylaxis: Holding CODE STATUS: Full Family at bedside: None available at bedside due to the COVID-19 pandemic Disposition: Remain in ICU I have personally spent 62 minutes of critical care time in the direct management of this patient. This is a life/limb threatening event. This includes time spent evaluating patient, direct bedside care, chart review, placing orders, interpretation of diagnostic studies, discussion with consultants, patient, and family members, as well as other required patient management activities. This time is exclusive of all separately billable procedures, and teaching time and separate from and in addition to any other critical care service time. Thank you for allowing us to participate in the care of this patient. (2) History of mechanical aortic valve replacement: (3) Femur fracture, right: (4) ESRD (end stage renal disease): (5) Hx of mechanical aortic valve replacement: History of Present Illness Attending Physician: Myles Ryan MD History of Present Illness 75-year-old male with a past medical history of ESRD, atrial fibrillation, left BKA, diabetes mellitus type 2, hypertension, morbid obesity and history of MVR with mechanical aortic valve who presented to the hospital due to a fall and sustained a periprosthetic femoral shaft fracture. He underwent right open reduction internal fixation of the prosthetic femur fracture today. He lost approximately 1.1 L of bloody and received 6 units of packed RBCs, 2 units of adenopathy, 800 mL of normal saline and 500 mL of albumin in the OR. He is currently on phenylephrine and vasopressin. He also received a bolus of amiodarone in the OR due to atrial fibrillation with rapid ventricular response. Patient was unable to participate in the exam as he was currently intubated and sedated. No review of systems patient's altered mental status and intubation. I did discuss the case with the hospitalist and the anesthesiologist. Hemoglobin as of 11:53 AM is 10.4. Platelet count is 495,000. INR is 1.4. BG 1:27 PM and 7.31/43/114. Potassium is 5.1. Serum creatinine of 4.95. Total bilirubin 3.0. I emergently placed a left femoral central line and a left femoral arterial line. Allergies Allergy/AdvReac Type Severity Reaction Status Date / Time enoxaparin Allergy Intermediate Illness Verified 07/18/20 02:29 morphine Allergy Unknown Unknown Verified 07/18/20 02:29 adhesive AdvReac Intermediate SORES WITH Verified 07/18/20 02:29 "SOME TAPE" oxycodone AdvReac Intermediate HALLUCINATI Verified 07/18/20 02:29 ONS Home Medications Medication Instructions Recorded Confirmed Type gemfibrozil [Lopid] 600 mg PO QAM 01/09/18 07/18/20 History pantoprazole [Protonix] 40 mg PO QAM 01/09/18 07/18/20 History aspirin [Ecotrin Low Strength] 81 mg PO QAM #30 tab 01/14/18 07/18/20 Rx levothyroxine 50 mcg PO QAM 02/22/20 07/18/20 History Bifidobacterium infantis [Align] 4 mg PO DAILY 07/18/20 07/18/20 History acetaminophen [Tylenol] 650 mg PO DIRECTED PRN 07/18/20 07/18/20 History allopurinol 200 mg PO QAM 07/18/20 07/18/20 History metoprolol tartrate 75 mg PO QAM 07/18/20 07/18/20 History vancomycin 125 mg PO QID 07/18/20 07/18/20 History warfarin 4 mg PO QPM 07/18/20 07/18/20 History Patient History Medical History Acute renal failure (ARF) Afib Amputation of left lower extremity below knee Anemia Bronchitis CHF (congestive heart failure) Diabetes GERD (gastroesophageal reflux disease) Gout Hyperlipidemia Hypertension Renal insufficiency Thrombocytosis Uremia Surgical History History of appendectomy History of cholecystectomy History of prosthetic aortic valve Mechanical heart valve present 1997 S/P AKA (above knee amputation) unilateral Family History Other Family history of diabetes mellitus Social History Smoking Status: Never smoker Second Hand Exposure: No; Hx Alcohol Use: No Hx Substance Use: No Preferred Language: Wolof Communication Ability: Effective Visual Impairment: No 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 Follows commands intermittently. Appears morbidly obese and in moderate distress. Eyes: PERRL, conjunctivae normal, anicteric sclerae ENMT: external ear and nose normal, oropharynx normal Neck: normal visual inspection Respiratory: normal respiratory effort, lungs clear to auscultation Cardiovascular: Rate/Rhythm: + tachycardic and + irregularly irregular Heart Sounds: + murmur Gastrointestinal (Abdomen): normal bowel sounds, soft, nontender, no hepatosplenomegaly Musculoskeletal: Previous left AKA. Right leg is in an immobilizer. Skin: no rashes, warm and dry Neurologic: Moves all limbs spontaneously. Psychiatric: Unable to assess due to intubation status Results & Data Results & Data ([place]) Vital Signs (Past 12 Hours) Vital Signs Temp Pulse Pulse Pulse Resp BP Pulse Ox 07/19/20 13:32 20 07/19/20 12:10 99.9 F H 136 H 24 84/59 L 92 07/19/20 11:54 99.7 F H 143 H 24 89/69 L 95 07/19/20 11:44 99.7 F H 147 H 18 112/72 96 07/19/20 11:37 133 H 19 99 07/19/20 11:34 128 H 18 84/68 L 100 07/19/20 11:24 98.8 F 123 H 18 111/85 100 07/19/20 04:00 98.4 F 118 H 20 95/60 L 95 I reviewed the vital signs, labs and imaging Coding Level of Care Code Critical Care 1st 30-74 mins Diagnoses Hemorrhagic shock R57.8 History of mechanical aortic valve replacement Z95.2 Femur fracture, right S72.491A Encounter type: initial encounter Femur location: distal, unspecified portion Fracture morphology: other fracture Fracture type: closed ESRD (end stage renal disease) N18.6 Hx of mechanical aortic valve replacement Z95.2 Time Spent (min) 62 (1) Femur fracture, right Encounter type: initial encounter Femur location: distal, unspecified portion Fracture morphology: other fracture Fracture type: closed Qualified Code(s): S72.491A - Other fracture of lower end of right femur, initial encounter for closed fracture
--- NOTE | 2020-07-19 15:06 | Pharmacy Report ---
Pharmacy Glycemic Short Note 2 - Date of Service July 19, 2020 - Glycemic Short BSG Results (Last 24 hours): 07/19/20 07/19/20 07/19/20 05:20 06:38 11:53 Glucose 104 H 169 H POC Glucose 109 H OUTPATIENT ANTIDIABETIC REGIMEN: * N/A * A1c = 5.1%, however interpret with caution in the setting of ESRD HD ASSESSMENT: * Admitted to ICU from OR following ABLA, hemorrhagic shock * He does carry a h/o DM however not receiving any pharmacotherapy * Currently he is requiring 2 pressors (phenylephrine and vasopressor) * Will concentrate phenylephrine now that central line placed, this will lessen dextrose load * Given A1c and no home DM meds, will provide Novolog SQ Q 4 hrs alone. Should glycemic control worsen despite this regimen pt should be transitioned to an IV insulin infusion PLAN FOR INPATIENT GLYCEMIC CONTROL: * Hold outpatient oral diabetes medications * Basal insulin * none at this time * Bolus insulin * NovoLog per scale Q 4 hrs * Goal Range: Low 110 mg/dL - High 14 mg/dL * Correction Factor: 20 mg/dL/unit * Nutritional / Prandial insulin per carb ratio of 1 unit per 15 grams CHO consumed * If BSG climbs > 220, would recommend initiation of IV insulin drip per severe stress protocol, goal range 120 - 180mg/dL PLAN FOR DISCHARGE: * pt is experiencing stress induced hyperglycemia, no need to initiate anti-diabetic therapy on discharge
--- NOTE | 2020-07-19 15:35 | XRay Report ---
XR chest 1V portable CLINICAL HISTORY: Intubation, nasogastric tube. COMPARISON STUDY: Chest CT and chest radiograph July 18, 2020. FINDINGS: Tip of the endotracheal tube is 3.2 cm above the sebastian. Tip of nasogastric tube is below t he lower aspect of this image but at least within the body of the stomach. Right internal jugular raine l lumen catheter remains in place. There are median sternotomy wires. Linear left basilar opacity ref lects atelectasis. Right basilar opacity could reflect atelectasis or consolidation. There is cardiom egaly without evidence for pulmonary edema. There is no pneumothorax or pleural effusion. IMPRESSION: 1. Satisfactory positioning of lines and tubes. 2. Right basilar opacity which could reflect consolidation or atelectasis. 3. Cardiomegaly without evidence for pulmonary edema. ACT 112: Negative or not required by law. Electronically signed by: Yao Clement M.D. 07/19/2020 3:34 PM
[2020-07-19 16:13] LABS: Hepatitis B Surface Ab Quant < 3.10 mIU/mL (>or=10mIU/mL Immune); Hepatitis B Surface Antibody Non-Immune
[2020-07-19 16:24] LABS: Hepatitis B Surf Ag Rflx Conf Neg (Neg)
--- NOTE | 2020-07-19 16:34 | Cardiology Consultation ---
Date of Consultation July 19, 2020 Assessment & Plan (1) Atrial fibrillation with RVR: (2) Hx of mechanical aortic valve replacement: (3) Hemorrhagic shock: (4) Tricuspid regurgitation: (5) Right heart failure: ASSESSMENT/PLAN: 1. Atrial fibrillation with rapid ventricular response: Atrial fibrillation appears to be paroxysmal. In March of 2020 he was in sinus but prior to that in ECG reported AFib as well. Could have persistent AFib at this point. Recommend a rate control strategy as he is currently no longer anticoagulated given surgery today and hemorrhagic shock. Would recommend resuming anticoagulation therapy as soon as safely possible, in the form of a heparin d rip. Amiodarone has been started by the critical care team given his hemorrhagic shock with hypotension. Once stabilized, would recommend replacing amiodarone with rate controlling medications such as beta-ortega or diltiazem drip. Could also use renally dosed digoxin however this may offer limited rate control in current situation. Try to avoid cardioversion due to stroke risk. 2. Mechanical aortic valve: Appeared to be appropriately functioning on echo on 07/18/2020. Resume anticoagulation therapy when safe from a bleeding standpoint. 3. Right heart failure: Severely dilated RV with severely reduced systolic function. He will be preload dependent given his RV pathology. He has received fluids including blood products in the setting of his hemorrhagic shock, which should help improve his blood pressure. 4. Tricuspid regurgitation: Appeared to be significant on echo with hepatic systolic venous flow reversal. Can continue to monitor in the future. 5. Hemorrhagic shock: As per critical care team and primary service. Has received 6 units of packed red blood cells thus far per nursing staff. On pressor support. 6. Disposition: Cardiology will continue to follow. I will be away from the hospital. Dr. Fernandez will be available to help assist in his care as he will be covering. Please call with any questions or concerns. Patient care discussed with critical care team as noted above. 43 min of critical care time spent for today's visit including reviewing records, chart, studies, evaluating patient at the bedside, and coordinating care with critical care team. Thank you for allowing me to participate in the care of your patient. Please call for any other questions or concerns. Sincerely, James Morales M.D. History of Present Illness Reason for Consultation: Afib, hypotension Requesting Physician: Shawn Block Attending Physician: Myles Ryan MD History of Present Illness Mr. Merchant is a 75-year-old gentleman with a history significant for mechanical aortic valve replacement in 1997, diastolic CHF, hypertension, dyslipidemia, type 2 diabetes, left above the knee amputation, ESRD on dialysis (MWF via right sided tunneled HD cath), and COPD. 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 Canales. He was admitted on 07/18/2020 with a right-sided periprosthetic femoral shaft fracture due to a mechanical fall. He underwent surgical correction on 07/19/[address] Ryan and apparently lost approximately 1 L of blood. He has since received 6 units of packed red blood cells and remains intubated in the ICU where he is being treated for hemorrhagic shock. He remains on sedation and on 2 pressors, vasopressin and phenylephrine. on presentation on 07/18/2020, he was noted to be in atrial fibrillation where his last ECG prior to that was on 04/03/2020 when the rhythm was sinus. Following surgery, his heart rate became much more elevated with documented heart rates into the 140s and he was hypotensive with blood pressures as low as 84 systolic. The critical care team had started amiodarone IV in an attempt to regains some form of rate control given his hemorrhagic shock. His heart rate has improved on amiodarone thus far. He was unable to provide any history as he is currently sedated on mechanical ventilation. Today's history was obtained by reviewing chart, discussing with nursing staff, and also discussing with the critical care team, Dr. Bass and Dr. Block. Review of systems: Unobtainable due to patient's sedated, intubated state. Family history: Unobtainable from the patient as he is sedated. Social history: Obtained from the admitting [facility] and P. Reportedly not a smoker and lives with family. No alcohol abuse reported. Allergies Allergy/AdvReac Type Severity Reaction Status Date / Time enoxaparin Allergy Intermediate Illness Verified 07/18/20 02:29 morphine Allergy Unknown Unknown Verified 07/18/20 02:29 adhesive AdvReac Intermediate SORES WITH Verified 07/18/20 02:29 "SOME TAPE" oxycodone AdvReac Intermediate HALLUCINATI Verified 07/18/20 02:29 ONS Home Medications Medication Instructions Recorded Confirmed Type gemfibrozil [Lopid] 600 mg PO QAM 01/09/18 07/18/20 History pantoprazole [Protonix] 40 mg PO QAM 01/09/18 07/18/20 History aspirin [Ecotrin Low Strength] 81 mg PO QAM #30 tab 01/14/18 07/18/20 Rx levothyroxine 50 mcg PO QAM 02/22/20 07/18/20 History Bifidobacterium infantis [Align] 4 mg PO DAILY 07/18/20 07/18/20 History acetaminophen [Tylenol] 650 mg PO DIRECTED PRN 07/18/20 07/18/20 History allopurinol 200 mg PO QAM 07/18/20 07/18/20 History metoprolol tartrate 75 mg PO QAM 07/18/20 07/18/20 History vancomycin 125 mg PO QID 07/18/20 07/18/20 History warfarin 4 mg PO QPM 07/18/20 07/18/20 History Patient History Medical History Acute renal failure (ARF) Afib Amputation of left lower extremity below knee Anemia Bronchitis CHF (congestive heart failure) Diabetes GERD (gastroesophageal reflux disease) Gout Hemorrhagic shock Hyperlipidemia Hypertension Renal insufficiency Thrombocytosis Uremia Surgical History (Updated 07/19/20 @ 16:30 by Urbano Morales MD) History of appendectomy History of cholecystectomy Hx of mechanical aortic valve replacement Mechanical heart valve present 1997 S/P AKA (above knee amputation) unilateral Family History Other Family history of diabetes mellitus Social History Smoking Status: Never smoker Second Hand Exposure: No; Hx Alcohol Use: No Hx Substance Use: No Preferred Language: Ukrainian Communication Ability: Effective Visual Impairment: No Limitations Data Security Analyst Required: No Beliefs That Will Affect Care: None marital status: Current Living Situation: Spouse and Family Other Information That Helps Us Care for You: No Feels Safe at Home: Yes Safety Concerns: Feels Safe At This Time Assistive Devices: Oxygen - Continuous Assistive Devices Comment: rea lift used at home Physical Exam Physical Exam: Gen.: No acute distress. Sedated on mechanical ventilator. HEENT: Anicteric sclera. Pupils are equal and round. Neck: No JVD, but thick neck. No bruits. Normal carotid upstrokes bilaterally. Cardiac: PMI was nonpalpable. No ventricular heave. Irregularly irregular. Normal S1, crisp S2. 2/6 systolic ejection murmur. No rubs, or gallops. Pulmonary: Clear to auscultation bilaterally without wheezes, rales, or rhonchi. Abdomen: Soft, nontender, nondistended, with hypoactive bowel sounds. No bruits noted. Extremities: Bilateral radial pulses were not palpable. Right lower extremity the surgically dressed with protective covering. Left AKA. No edema or cyanosis. Results & Data ([facility]) Vital Signs (Past 12 Hours) Vital Signs Temp Pulse Pulse Resp BP BP Pulse Ox 07/19/20 15:30 37.5 C 82 100 07/19/20 15:06 37.4 C 85 100 07/19/20 15:00 37.4 C 80 100 07/19/20 14:48 81 20 100 07/19/20 14:39 86 100 07/19/20 14:38 37.4 C 86 103/58 L 100 07/19/20 14:06 37.2 C 88 99 07/19/20 13:32 20 07/19/20 13:01 36.8 C 98 H 89/63 L 100 07/19/20 12:51 102 H 100/63 100 07/19/20 12:46 99 H 103/65 100 07/19/20 12:41 97 H 96/60 L 100 07/19/20 12:36 105 H 95/66 L 100 07/19/20 12:31 107 H 97/58 L 100 07/19/20 12:10 37.7 C H 136 H 24 84/59 L 92 07/19/20 11:54 37.6 C H 143 H 24 89/69 L 95 07/19/20 11:44 37.6 C H 147 H 18 112/72 96 07/19/20 11:37 133 H 19 99 07/19/20 11:34 128 H 18 84/68 L 100 07/19/20 11:24 37.1 C 123 H 18 111/85 100 Intake & Output 07/17/20 07/18/20 07/19/20 07/20/20 06:59 06:59 06:59 06:59 Intake Total 500 / 500 100.50 / 100.50 922.158 / 922.158 Output Total 50 / 50 Balance 500 / 500 100.50 / 100.50 872.158 / 872.158 Weight 241 lb 6.499 oz 233 lb 7.512 oz Laboratory Results Laboratory Results - last 24 hr 07/18/20 07/18/20 07/18/20 11:37 16:47 16:54 WBC RBC Hgb POC Hgb Hct POC Hct MCV MCH MCHC RDW Std Deviation RDW Coeff of Jose Plt Count MPV Absolute Nucleated RBC Nucleated RBC % (auto) Neutrophils % (Manual) Lymphocytes % (Manual) Monocytes % (Manual) Basophils % (Manual) Metamyelocytes % (Man) Myelocytes % (Man) Blast Cells % (Manual) Other Cells % Neutrophils # (Manual) Total Absolute Neuts Lymphocytes # (Manual) Total Abs Lymphocytes Monocytes # (Manual) Basophils # (Manual) Metamyelocytes # (Man) Myelocytes # (Manual) Blast Cells # (Man) Other Cells # Giant Platelets PT 15.3 H INR 1.6 H APTT PTT Ratio POC pH POC pCO2 POC pO2 POC HCO3 POC Total CO2 POC Base Excess POC ABG O2 Sat POC Sodium Sodium POC Potassium Potassium Chloride Carbon Dioxide Anion Gap BUN Creatinine Est Cr Clr Drug Dosing Est GFR ( Amer) Est GFR (Non-Af Amer) BUN/Creatinine Ratio Glucose POC Glucose Lactate Calcium Total Bilirubin AST ALT Alkaline Phosphatase Troponin I 0.027 Total Protein Albumin Globulin Albumin/Globulin Ratio Hep Bs Antigen Hep Bs Antibody Hep Bs Antibody, Quant Blood Type O Positive Blood Type Recheck Antibody Screen NEGATIVE Crossmatch See Detail 07/19/20 07/19/20 07/19/20 05:20 05:20 05:20 WBC 13.21 H RBC 3.29 L Hgb 10.6 L POC Hgb Hct 34.2 L POC Hct MCV 104.0 H MCH 32.2 MCHC 31.0 L RDW Std Deviation 68.1 H RDW Coeff of Jose 18.2 H Plt Count 624 H MPV 10.6 H Absolute Nucleated RBC 0.27 H Nucleated RBC % (auto) 2.0 Neutrophils % (Manual) Lymphocytes % (Manual) Monocytes % (Manual) Basophils % (Manual) Metamyelocytes % (Man) Myelocytes % (Man) Blast Cells % (Manual) Other Cells % Neutrophils # (Manual) Total Absolute Neuts Lymphocytes # (Manual) Total Abs Lymphocytes Monocytes # (Manual) Basophils # (Manual) Metamyelocytes # (Man) Myelocytes # (Manual) Blast Cells # (Man) Other Cells # Giant Platelets PT 13.3 H INR 1.3 H APTT PTT Ratio POC pH POC pCO2 POC pO2 POC HCO3 POC Total CO2 POC Base Excess POC ABG O2 Sat POC Sodium Sodium 136 POC Potassium Potassium 4.6 Chloride 100 Carbon Dioxide 30 Anion Gap 6.0 BUN 27 H D Creatinine 5.00 H* D Est Cr Clr Drug Dosing 15.3 Est GFR ( Amer) 12.1 Est GFR (Non-Af Amer) 10.4 BUN/Creatinine Ratio 5.5 L Glucose 104 H POC Glucose Lactate Calcium 9.0 Total Bilirubin 1.9 H AST 29 ALT 11 L Alkaline Phosphatase 207 H Troponin I Total Protein 8.0 Albumin 2.7 L Globulin 5.3 H Albumin/Globulin Ratio 0.5 L Hep Bs Antigen Hep Bs Antibody Hep Bs Antibody, Quant Blood Type Blood Type Recheck Antibody Screen Crossmatch 07/19/20 07/19/20 07/19/20 05:20 06:38 10:17 WBC RBC Hgb POC Hgb 10.2 L Hct POC Hct 30 L MCV MCH MCHC RDW Std Deviation RDW Coeff of Jose Plt Count MPV Absolute Nucleated RBC Nucleated RBC % (auto) Neutrophils % (Manual) Lymphocytes % (Manual) Monocytes % (Manual) Basophils % (Manual) Metamyelocytes % (Man) Myelocytes % (Man) Blast Cells % (Manual) Other Cells % Neutrophils # (Manual) Total Absolute Neuts Lymphocytes # (Manual) Total Abs Lymphocytes Monocytes # (Manual) Basophils # (Manual) Metamyelocytes # (Man) Myelocytes # (Manual) Blast Cells # (Man) Other Cells # Giant Platelets PT INR APTT PTT Ratio POC pH 7.33 L POC pCO2 44 POC pO2 192 H POC HCO3 23 POC Total CO2 24 POC Base Excess -3.0 POC ABG O2 Sat 100.0 H POC Sodium 135 Sodium POC Potassium 5.2 H Potassium Chloride Carbon Dioxide Anion Gap BUN Creatinine Est Cr Clr Drug Dosing Est GFR ( Amer) Est GFR (Non-Af Amer) BUN/Creatinine Ratio Glucose POC Glucose 109 H Lactate Calcium Total Bilirubin AST ALT Alkaline Phosphatase Troponin I Total Protein Albumin Globulin Albumin/Globulin Ratio Hep Bs Antigen Hep Bs Antibody Hep Bs Antibody, Quant Blood Type Blood Type Recheck O Positive Antibody Screen Crossmatch 07/19/20 07/19/20 07/19/20 11:53 11:53 11:53 WBC 19.52 H RBC 3.33 L Hgb 10.4 L POC Hgb Hct 31.8 L POC Hct MCV 95.5 D MCH 31.2 MCHC 32.7 RDW Std Deviation 60.9 H RDW Coeff of Jose 17.8 H Plt Count 495 H MPV 10.9 H Absolute Nucleated RBC 1.78 H Nucleated RBC % (auto) 9.1 Neutrophils % (Manual) 43.6 Lymphocytes % (Manual) 28.7 Monocytes % (Manual) 8.3 Basophils % (Manual) 0.9 Metamyelocytes % (Man) 4.6 Myelocytes % (Man) 10.2 Blast Cells % (Manual) 2.8 Other Cells % 0.9 Neutrophils # (Manual) 8.51 H Total Absolute Neuts 8.51 H Lymphocytes # (Manual) 5.60 H Total Abs Lymphocytes 5.60 H Monocytes # (Manual) 1.62 H Basophils # (Manual) 0.18 Metamyelocytes # (Man) 0.90 H Myelocytes # (Manual) 1.99 H Blast Cells # (Man) 0.55 H Other Cells # 0.18 H Giant Platelets 2+ PT 14.0 H INR 1.4 H APTT 30.7 PTT Ratio 1.2 POC pH POC pCO2 POC pO2 POC HCO3 POC Total CO2 POC Base Excess POC ABG O2 Sat POC Sodium Sodium 139 POC Potassium Potassium 5.1 Chloride 105 Carbon Dioxide 22 Anion Gap 12.0 H BUN 28 H Creatinine 4.95 H* Est Cr Clr Drug Dosing 15.5 Est GFR ( Amer) 12.2 Est GFR (Non-Af Amer) 10.5 BUN/Creatinine Ratio 5.7 L Glucose 169 H POC Glucose Lactate Calcium 8.6 Total Bilirubin 3.0 H D AST 30 ALT 11 L Alkaline Phosphatase 149 H Troponin I 0.043 Total Protein 6.3 L D Albumin 2.5 L Globulin 3.8 Albumin/Globulin Ratio 0.7 L Hep Bs Antigen Hep Bs Antibody Hep Bs Antibody, Quant Blood Type Blood Type Recheck Antibody Screen Crossmatch 07/19/20 07/19/20 07/19/20 13:27 15:30 15:30 WBC RBC Hgb POC Hgb Hct POC Hct MCV MCH MCHC RDW Std Deviation RDW Coeff of Jose Plt Count MPV Absolute Nucleated RBC Nucleated RBC % (auto) Neutrophils % (Manual) Lymphocytes % (Manual) Monocytes % (Manual) Basophils % (Manual) Metamyelocytes % (Man) Myelocytes % (Man) Blast Cells % (Manual) Other Cells % Neutrophils # (Manual) Total Absolute Neuts Lymphocytes # (Manual) Total Abs Lymphocytes Monocytes # (Manual) Basophils # (Manual) Metamyelocytes # (Man) Myelocytes # (Manual) Blast Cells # (Man) Other Cells # Giant Platelets PT INR APTT PTT Ratio POC pH 7.31 L POC pCO2 43 POC pO2 114 H POC HCO3 22 POC Total CO2 23 L POC Base Excess -5.0 POC ABG O2 Sat 98.0 H POC Sodium Sodium POC Potassium Potassium Chloride Carbon Dioxide Anion Gap BUN Creatinine Est Cr Clr Drug Dosing Est GFR ( Amer) Est GFR (Non-Af Amer) BUN/Creatinine Ratio Glucose POC Glucose Lactate 5.7 H* Calcium Total Bilirubin AST ALT Alkaline Phosphatase Troponin I Total Protein Albumin Globulin Albumin/Globulin Ratio Hep Bs Antigen Neg Hep Bs Antibody Non-Immune Hep Bs Antibody, Quant < 3.10 L Blood Type Blood Type Recheck Antibody Screen Crossmatch Diagnostic Findings Telemetry personally reviewed: Atrial fibrillation with intermittent rapid ventricular response. No significant pauses. ECGs personally reviewed: ECG 07/18/2020: AFib 92 beats per minute. Inferolateral ST/T-wave abnormality. ECG 04/03/2020 also personally reviewed: Sinus rhythm 77 beats per minute. Inferolateral ST/T-wave abnormality. ECG 02/22/2020: AFib 70 beats per minute with PVC. Echo 07/18/2020: Normal LV size. EF 50-55%. Septal flattening during diastole suggests possible RV volume overload. Severely dilated RV with severely reduced systolic function. Mild left atrial dilation. Severe right atrial dilation. Mechanical aortic valve prosthesis with acceptable transvalvular gradient/velocity. Mild MR. Moderate to severe TR. RVSP 54. Chart reviewed including surgical note, critical care note, history and physical on admission. Chest x-ray 07/19/2020: Right basilar opacity could reflect consolidation versus atelectasis per Radiology. No pulmonary edema. CT chest 07/18/2020: Cardiomegaly. Abdominal ascites. Medications Administered Current Inpatient Medications Acetaminophen (Acetaminophen 325 Mg Tab) 650 mg PO Q4H PRN PRN Reason: Pain or Fever Stop: 08/17/20 10:16 Acetaminophen (Acetaminophen 500 Mg Tab) 1,000 mg PO Q8 [facility] Stop: 08/18/20 13:59 Last Admin: 07/19/20 12:40 Dose: Not Given Documented by: Al Hydrox/Mg Hydrox/Simethicone (Aluminum/Magnesium Susp 30 Ml Udc) 15 ml PO Q4H PRN PRN Reason: Heartburn Stop: 08/18/20 12:09 Allopurinol (Allopurinol 100 Mg Tab) 200 mg PO QAM [facility] Stop: 08/17/20 10:16 Last Admin: 07/19/20 12:18 Dose: Not Given Documented by: Aspirin (Aspirin 81 Mg Ectab) 81 mg PO QAM [facility] Stop: 08/17/20 10:16 Last Admin: 07/19/20 12:18 Dose: Not Given Documented by: Bisacodyl (Bisacodyl 10 Mg Supp) 10 mg LA DAILY PRN PRN Reason: Constipation Stop: 08/18/20 12:09 Docusate Sodium (Docusate Sodium Syrup 100 Mg/10 Ml Udc) 100 mg PO BID [facility] Stop: 08/18/20 20:59 Epoetin Moises (Epoetin Moises 4,000 Unit/Ml Vial) 4,000 units IV TODAY@0800 [facility] Stop: 07/19/20 18:00 Last Admin: 07/19/20 14:16 Dose: Not Given Documented by: Fentanyl Citrate (Fentanyl Bolus From Bag) 50 mcg IV Q60M PRN PRN Reason: Pain or Agitation Stop: 08/02/20 12:24 Sodium Chloride (Nss) 250 mls @ 15 mls/hr IV .[id number] PRN PRN Reason: For Transfusion Stop: 07/19/20 16:44 Sodium Chloride (Nss) 250 mls @ 15 mls/hr IV .[id number] PRN PRN Reason: For Transfusion Stop: 07/19/20 18:51 Tranexamic Acid (Tranexamic Acid / 0.7% Nacl) 1,000 mg in 100 mls @ 10.59 mls/hr IV .INTRAOP ONE Stop: 07/19/20 19:52 Last Admin: 07/19/20 12:18 Dose: Not Given Documented by: Vasopressin 20 units/ Sodium (Chloride) 101 mls @ 12.12 mls/hr IV .Q8H20M [facility] Stop: 08/18/20 12:14 Last Admin: 07/19/20 12:15 Dose: 0.04 unit/min, 12.1 mls/hr Documented by: Vancomycin HCl 1,500 mg/ (Sodium Chloride) 530 mls @ 200 mls/hr IV Q12H [facility] Stop: 07/19/20 21:08 Tranexamic Acid (Tranexamic Acid / 0.7% Nacl) 1,000 mg in 100 mls @ 600 mls/hr IV Q6H [facility] Stop: 07/19/20 17:39 Midazolam HCl (Versed) 125 mg in 250 mls @ 2 mls/hr IV .Q96H [facility]; Protocol Stop: 08/18/20 12:29 Last Admin: 07/19/20 12:50 Dose: 2 mg/hr, 4 mls/hr Documented by: Fentanyl Citrate (Fentanyl Drip) 1,250 mcg in 250 mls @ 5 mls/hr IV .Q50H [facility]; Protocol Stop: 08/02/20 12:29 Last Admin: 07/19/20 12:49 Dose: 25 mcg/hr, 5 mls/hr Documented by: Phenylephrine HCl 180 mg/ (Dextrose) 500 mls @ 44.125 mls/hr IV .Q7H34M [facility]; Protocol Stop: 08/18/20 13:59 Last Admin: 07/19/20 14:19 Dose: 2 mcg/kg/min, 35.3 mls/hr Documented by: Pantoprazole Sodium 40 mg/ (Syringe) 10 mls @ 5 mls/min IV Q24H [facility] Stop: 08/18/20 20:59 Amiodarone HCl/Dextrose (Nexterone / D5w) 360 mg in 200 mls @ 16.667 mls/hr IV .Q12H [facility] Stop: 08/18/20 16:34 Insulin Aspart (Insulin Aspart 100 Units/Ml 3 Ml Pen) 0 units SC Q4 [facility] Stop: 08/18/20 15:59 Levothyroxine Sodium (Levothyroxine Sodium 50 Mcg Tablet) 50 mcg PO DAILYBB [facility] Stop: 08/17/20 10:44 Last Admin: 07/19/20 06:19 Dose: Not Given Documented by: Magnesium Hydroxide (Magnesium Hydroxide Susp 30 Ml Udc) 30 ml PO Q6H PRN PRN Reason: Constipation Stop: 08/18/20 12:09 Melatonin (Melatonin 3 Mg Tab) 3 mg PO HS PRN PRN Reason: Sleep Stop: 08/18/20 00:04 Metoprolol Tartrate (Metoprolol Tartrate 25 Mg Tab) 75 mg PO QAM [facility] Stop: 08/17/20 10:16 Last Admin: 07/19/20 12:18 Dose: Not Given Documented by: Midazolam HCl (Midazolam Bolus From Bag) 2 mg IV Q60M PRN PRN Reason: Sedation Stop: 08/18/20 12:24 Miscellaneous Information (Pharmacy Glycemic Mgmt Consult) 1 ea N/[place] [facility] Multivit[place] (Multivitamin Tab) 1 tab PO QAM [facility] Stop: 08/19/20 08:59 Naloxone HCl (Naloxone Hcl 0.4 Mg/1 Ml Vial/Carp) 0.1 mg IV Q5M PRN PRN Reason: Oversedation/Resp Depression Stop: 08/18/20 12:09 Ondansetron HCl (Ondansetron Inj 2 Mg/Ml 2 Ml Vial) 4 mg IV Q4H PRN PRN Reason: Nausea Stop: 08/17/20 13:52 Pantoprazole Sodium (Pantoprazole 40 Mg Tab) 40 mg PO QAM [facility] Stop: 08/17/20 10:16 Last Admin: 07/19/20 12:18 Dose: Not Given Documented by: Raspberry (Raspberry Syrup 5 Ml Udp) 5 ml PO QID [facility] Stop: 08/01/20 12:59 Last Admin: 07/19/20 14:17 Dose: Not Given Documented by: Sennosides (Senna 8.6 Mg Tab) 17.2 mg PO HS [facility] Stop: 08/18/20 20:59 Vancomycin HCl (Vancomycin Hcl 125 Mg/2.5ml Soln) 125 mg PO QID [facility] Stop: 08/17/20 12:59 Last Admin: 07/19/20 14:17 Dose: Not Given Documented by: PG Care Time/CCT Total # of Minutes Spent Total Time Spent with Patient: Total time spent is greater than 50% in coordination of care (as documented) at patient's floor/unit and/or counseling patient: Critical Care Time: Yes Total Critical Care Time: 43 Coding Level of Care Code None Diagnoses Atrial fibrillation with RVR I48.91 Hx of mechanical aortic valve replacement Z95.2 Hemorrhagic shock R57.8 Tricuspid regurgitation I07.1 Right heart failure I50.810 Additional Codes Critical Care Time - Critical Care Time: Yes ([id number]) Comment Critical Care Time [id number]
[2020-07-19] MEDS ORDERED: AMIODARONE / D5W 360 MG/200 ML BAG IV SCH (16:35)
[2020-07-19] MEDS: AMIODARONE / D5W 360 MG/200 ML BAG IV SCH (16:53)
[2020-07-19] MEDS: INSULIN ASPART 100 UNITS/ML 3 ML PEN SC SCH ×3 (16:53→23:26)
[2020-07-19] MEDS ORDERED: TRANEXAMIC ACID / 0.7% NACL 1,000 MG/100 ML BAG IV SCH (17:30)
[2020-07-19] MEDS ORDERED: VANCOMYCIN HCL 1,500 MG in SODIUM CHLORIDE 0.9% 500 ML IV SCH (18:30)
[2020-07-19] MEDS: DOCUSATE SODIUM SYRUP 100 MG/10 ML UDC PO SCH (20:39)
[2020-07-19 20:51] LABS: Mean Corpuscular Hgb Conc 32.7 g/dL (32-36); Mean Platelet Volume 10.6 fL (7.4-10.4); Platelet Count 503 K/uL (130-400)
[2020-07-19] MEDS ORDERED: DOCUSATE SODIUM 100 MG CAP PO SCH (21:00)
[2020-07-19] MEDS ORDERED: PANTOprazole 40 MG in SYRINGE 0 ML IV SCH (21:00)
[2020-07-19] MEDS ORDERED: SENNA 8.6 MG TAB PO SCH (21:00)
[2020-07-19 22:56] LABS: Anisocytosis Present; Polychromasia 1+; Smudge Cells Present
[2020-07-19 22:59] LABS: ALC (manual) 6.03 K/uL (1.2-3.4); ANC (manual) 8.86 K/uL (1.4-6.5); Blast # (manual) 0.85 K/uL (0-0); Blast Cells % (manual) 4.5 %; Eosinophils # (manual) 0.51 K/uL (0-0.5); Eosinophils % (manual) 2.7 %; Hemoglobin 8.5 g/dL (14.0-18.0); Lymphocytes # (manual) 6.03 K/uL (1.2-3.4); Lymphocytes % (manual) 32.1 %; Mean Corpuscular Hemoglobin 30.6 pg (25-34); Mean Corpuscular Volume 93.5 fL (80-100); Metamyelocytes # (manual) 0.51 K/uL (0-0); Metamyelocytes % (manual) 2.7 %; Monocytes # (manual) 1.18 K/uL (0.11-0.59); Monocytes % (manual) 6.3 %; Myelocytes # (manual) 0.34 K/uL (0-0); Myelocytes % (manual) 1.8 %; Neutrophils # (manual) 8.86 K/uL (1.4-6.5); Neutrophils % (manual) 47.2 %; Nucleated RBC # (auto) 1.94 K/uL (0-0); Nucleated RBC % (auto) 10.3 %; Promyelocytes # (manual) 0.51 K/uL (0-0); Promyelocytes % (manual) 2.7 %; RDW Standard Deviation 60.5 fL (36.4-46.3); Red Blood Count 2.78 M/uL (4.7-6.1); White Blood Count 18.78 K/uL (4.8-10.8)
[2020-07-20 00:36] LABS: Hematocrit (blood only) 24.4 % (42-52); Hemoglobin 8.2 g/dL (14.0-18.0)
[2020-07-20] MEDS: fentaNYL DRIP 1,250 MCG/250 ML BAG IV SCH (01:03)
[2020-07-20] MEDS: VASOPRESSIN 20 UNITS in 0.9 % SODIUM CHLORIDE 100 ML IV SCH ×2 (02:54→10:48)
[2020-07-20] MEDS: AMIODARONE / D5W 360 MG/200 ML BAG IV SCH (03:13)
[2020-07-20] MEDS: INSULIN ASPART 100 UNITS/ML 3 ML PEN SC SCH ×3 (04:16→10:47)
[2020-07-20] MEDS: DEXTROSE 5% IV SCH ×3 (04:21→09:55)
[2020-07-20] MEDS: PHENYLEPHRINE HCL IV SCH ×3 (04:21→09:55)
[2020-07-20 04:42] LABS: Mean Corpuscular Hgb Conc 33.6 g/dL (32-36); Mean Platelet Volume 10.6 fL (7.4-10.4); Nucleated RBC # (auto) 1.35 K/uL (0-0); Nucleated RBC % (auto) 8.3 %; Platelet Count 451 K/uL (130-400)
[2020-07-20 04:46] LABS: iSTAT Arterial Blood Gas HCO3 23 meg/L (19-24); iSTAT Arterial Blood Gas pCO2 38 mmHg (35-46); iSTAT Arterial Blood Gas pH 7.38 (7.35-7.45); iSTAT Arterial Blood Gas pO2 93 mmHg (80-95); iSTAT Carbon Dioxide 24 mmol/L (24-31); iSTAT Hematocrit 22 % (42-52); iSTAT Hemoglobin 7.5 g/dl (14.0-18.0); iSTAT Sodium 132 mmol/L (135-144)
[2020-07-20 04:56] LABS: INR 1.5 (0.9-1.1); Prothrombin Time 14.6 Seconds (9.0-12.0)
[2020-07-20 05:14] LABS: Albumin Level 1.9 gm/dl (3.4-5.0); BUN Creatinine Ratio 6.2 (10-20); Bilirubin Direct 0.9 mg/dl (0-0.2); Bilirubin,Total 1.5 mg/dl (0.2-1); Creatinine Clr Calc Pharmacy 16.2 ml/min; Est GFR (African American) 12.3; Est GFR (Non-African American) 10.6; Magnesium 1.7 mg/dl (1.8-2.4); Phosphorus 4.7 mg/dl (2.5-4.9); Potassium 4.6 mmol/L (3.5-5.1); Total Protein 4.8 gm/dl (6.4-8.2)
[2020-07-20 05:46] LABS: ALC (manual) 5.09 K/uL (1.2-3.4); ANC (manual) 7.07 K/uL (1.4-6.5); Basophils # (manual) 0.42 K/uL (0-0.2); Basophils % (manual) 2.6 %; Blast # (manual) 1.56 K/uL (0-0); Blast Cells % (manual) 9.6 %; Eosinophils # (manual) 0.28 K/uL (0-0.5); Eosinophils % (manual) 1.7 %; Lymphocytes # (manual) 5.09 K/uL (1.2-3.4); Lymphocytes % (manual) 31.3 %; Monocytes % (manual) 4.3 %; Myelocytes # (manual) 1.14 K/uL (0-0); Neutrophils # (manual) 7.07 K/uL (1.4-6.5); Neutrophils % (manual) 43.5 %
[2020-07-20 06:03] LABS: Hemoglobin 7.4 g/dL (14.0-18.0); Mean Corpuscular Hemoglobin 31.6 pg (25-34); RDW Coefficient of Variation 18.3 % (11.5-14.5); RDW Standard Deviation 61.6 fL (36.4-46.3); Red Blood Count 2.34 M/uL (4.7-6.1); White Blood Count 16.25 K/uL (4.8-10.8)
[2020-07-20] MEDS ORDERED: SODIUM CHLORIDE 0.9% 250 ML IV PRN (06:09)
[2020-07-20] MEDS: LEVOTHYROXINE SODIUM 50 MCG TABLET PO SCH (06:17)
[2020-07-20] MEDS: ACETAMINOPHEN 500 MG TAB PO SCH ×2 (06:17→12:29)
[2020-07-20] MEDS: METOPROLOL TARTRATE 25 MG TAB PO SCH (07:31)
[2020-07-20] MEDS: DOCUSATE SODIUM SYRUP 100 MG/10 ML UDC PO SCH (07:31)
[2020-07-20] MEDS: RASPBERRY SYRUP 5 ML UDP PO SCH ×2 (07:34→10:48)
[2020-07-20] MEDS: VANCOMYCIN HCL 125 MG/2.5ML SOLN PO SCH ×2 (08:01→10:48)
[2020-07-20] MEDS: allopurinoL 100 MG TAB PO SCH (08:01)
[2020-07-20] MEDS ORDERED: MULTIVITAMIN TAB PO SCH (09:00)
--- NOTE | 2020-07-20 09:12 | XRay Report ---
XR chest 1V portable CLINICAL HISTORY: Respiratory failure COMPARISON STUDY: 07/19/2020 FINDINGS: The heart is mildly enlarged. There are postsurgical changes of midline sternotomy. There i s an endotracheal tube additional 4 cm above the sebastian. There is a right-sided dual-lumen central ve nous catheter. There is an enteric tube which passes into the stomach. There is mild elevation of int erstitium. There are bibasilar opacities, atelectatic versus infectious/inflammatory[ IMPRESSION: 1. Satisfactory positioning of the lines and tubes 2. Persistent cardiomegaly and interstitial thickening 3. Bibasilar opacities, atelectatic versus infectious/inflammatory ACT 112: Negative or not required by law. Electronically signed by: Gary Gilliam M.D. 07/20/2020 9:10 AM
--- NOTE | 2020-07-20 09:22 | Critical Care Progress Note ---
Date of Service July 20, 2020 Assessment & Plan (1) Hemorrhagic shock: 75-year-old male with past medical history of A. fib, mechanical aortic valve, ESRD who presented to the hospital with a periprosthetic femoral shaft fracture and underwent open reduction today. He had hemorrhagic shock during the surgery and lost 1.1 L of blood. Neurologic: Currently sedated with Versed and fentanyl. Will wean as able. Pulmonary: Requiring minimal vent settings at this time. High likelihood of developing fluid overload and CHF. Cardiovascular: Hemorrhagic shock. Appears to be euvolemic at present. Receiving 1 unit of blood today. Goal hemoglobin for this patient will be 8. Continue phenylephrine and wean to maintain mean arterial pressure greater than 65. Continue vasopressin. Continue low-dose dobutamine to support his right ventricular failure. We will hold on heparin drip at this time given the hemorrhagic shock. We will need to start as soon as possible given his mechanical aortic valve and history of atrial fibrillation. Continue with amiodarone. Hold metoprolol at this time. Gastrointestinal: N.p.o. for the time being OG tube in place. Renal: Given his ongoing shock state, he will likely need CRRT which we cannot offer in this facility. Prognosis is very poor and a renal standpoint. This was discussed with the patient's . Infectious disease: No obvious infectious etiology. OR cultures pending. Hematologic: Hemorrhagic shock as above. Transfuse hemoglobin to maintain above 8. Hematology/oncology was consulted due to abnormality seen on the differential on the CBC. There is concern for possible AML. Hematology is recommending possibl e transfer to tertiary care center for further work-up and treatment. This was discussed with the patient's and she is going to get back to us regarding what she would like done. Endocrine: No issues at present Lines and tubes: Peripheral IVs, ETT, left femoral arterial line left femoral central line in place. VTE prophylaxis: Holding CODE STATUS: Full Family: Updated the patient's . She is aware that he is critically ill and his prognosis is very poor at this time. Disposition: Remain in ICU I have personally spent 61 minutes of critical care time in the direct management of this patient. This is a life/limb threatening event. This includes time spent evaluating patient, direct bedside care, chart review, placing orders, interpretation of diagnostic studies, discussion with consultants, patient, and family members, as well as other required patient management activities. This time is exclusive of all separately billable procedures, and teaching time and separate from and in addition to any other critical care service time. Thank you for allowing us to participate in the care of this patient. (2) History of mechanical aortic valve replacement: (3) Femur fracture, right: (4) ESRD (end stage renal disease): Admission and Anticipated Discharge Date Admission Date: July 18, 2020 Subjective Patient seen and examined currently on Versed and fentanyl. Intubated. Unable to respond to commands. Review of systems limited. Receiving 1 unit of packed RBCs this morning. No significant overnight events. Requiring escalating doses of phenylephrine. Review of Systems Review of Systems: Unobtainable due to cognitive status and Unobtainable due to endotracheal tube Physical Exam Constitutional: Patient is currently intubated and sedated. Eyes: PERRL, conjunctivae normal, anicteric sclerae ENMT: external ear and nose normal, oropharynx normal Neck: normal visual inspection Respiratory: normal respiratory effort, lungs clear to auscultation Cardiovascular: Rate/Rhythm: + tachycardic and + irregularly irregular Heart Sounds: + murmur Gastrointestinal (Abdomen): normal bowel sounds, soft, nontender, no hepatosplenomegaly Musculoskeletal: Previous left AKA. Right leg is in an immobilizer. Skin: no rashes, warm and dry Neurologic: Moves all limbs spontaneously. Psychiatric: Unable to assess due to intubation status Results & Data Results & Data ([facility]) Vital Signs (Past 12 Hours) Vital Signs Temp Pulse Resp BP Pulse Ox 07/20/20 08:20 110 H 23 100 07/20/20 08:08 99.7 F H 100 H 20 121/44 L 100 07/20/20 07:38 99.7 F H 104 H 20 128/43 L 100 07/20/20 07:23 99.7 F H 102 H 20 136/49 L 100 07/20/20 07:05 99.7 F H 99 H 20 132/44 L 100 07/20/20 06:43 99.9 F H 103 H 87/42 L 100 07/20/20 06:06 99.9 F H 104 H 88/51 L 100 07/20/20 06:00 99.9 F H 98 H 100 07/20/20 05:06 100.0 F H 101 H 92/57 L 100 04/17/21 04:15 101 H 20 100 07/20/20 04:11 100.4 F H 100 H 89/48 L 100 07/20/20 04:06 100.4 F H 103 H 85/57 L 100 07/20/20 04:00 100.4 F H 101 H 98 07/20/20 03:06 100.8 F H 108 H 93/54 L 99 07/20/20 02:06 101.1 F H 102 H 91/58 L 99 07/20/20 01:06 101.1 F H 104 H 89/50 L 98 07/20/20 00:55 110 H 20 98 07/20/20 00:06 101.3 F H 114 H 93/50 L 98 07/20/20 00:00 101.1 F H 109 H 99 07/19/20 23:06 101.3 F H 105 H 92/53 L 100 07/19/20 22:06 101.3 F H 107 H 90/54 L 99 07/19/20 22:00 101.3 F H 106 H 100 Coding Level of Care Code Critical Care 1st 30-74 mins Diagnoses Hemorrhagic shock R57.8 History of mechanical aortic valve replacement Z95.2 Femur fracture, right S72.491A Encounter type: initial encounter Femur location: distal, unspecified portion Fracture morphology: other fracture Fracture type: closed ESRD (end stage renal disease) N18.6 Time Spent (min) 61 (1) Femur fracture, right Encounter type: initial encounter Femur location: distal, unspecified portion Fracture morphology: other fracture Fracture type: closed Qualified Code(s): S72.491A - Other fracture of lower end of right femur, initial encounter for cl osed fracture
[2020-07-20] MEDS ORDERED: CEFEPIME 2,000 MG in SYRINGE 0 ML IV SCH (10:00)
[2020-07-20] MEDS ORDERED: metroNIDAZOLE 500 MG/100 ML BAG IV SCH (10:00)
--- NOTE | 2020-07-20 10:24 | Progress Notes ---
DATE: 07/20/2020 SUBJECTIVE: A 75-year-old gentleman with multiple medical comorbidities postop day 1 from ORIF of a right periprosthetic femur fracture. He is currently in the ICU, intubated on blood pressure support. By report, he does respond, but currently sedated. OBJECTIVE: VITAL SIGNS: Temperature 36.6, pulse 110. Blood pressure 121/44. GENERAL: The patient is lying in bed, intubated and sedated. EXTREMITIES: Examination of the right leg reveals the knee immobilizer in place. Leg is well aligned. He has got brisk refill in his toes. He is sedated, so neurological exam is limited. LABORATORY DATA: Hemoglobin 7.5. Hematocrit 22.0. ASSESSMENT: A 75-year-old gentleman with multiple medical comorbidities postop day 1 from ORIF of a right hip periprosthetic femur fracture. His situation is still very guarded. A lot of medical issues and still needing blood pressure support. Orthopedically, his leg looks fine. PLAN: At this point, most of his plan and treatments and medical in nature. He is typically on anticoagulation and we need to hold on that until his hemoglobin and hematocrit are fairly stable. From the orthopedic standpoint, he could probably start back on anticoagulation 48 hours after surgery as long as his hemoglobin and hematocrit are stable. He can be mobilized as tolerated. He is nonweightbearing on this right leg for the next 6 weeks. Knee immobilizer for now. We do need to be careful and avoid pressure ulcers, so heel and decubiti precautions are appropriate. No need for any wound care at this point as he has got a Prevena VAC in place. Any orthopedic questions can be directed to me at [phone].
--- NOTE | 2020-07-20 11:09 | Nephrology Progress Note ---
Date of Service July 20, 2020 Assessment & Plan (1) ESRD (end stage renal disease): ESRD, started HD during admission to [facility] complicated by LINO/CKD in April. Maintained on MWF HD at [facility] as outpatient. Unfortunately, Ross remains hemodynamically unstable complicating IHD. He continues to require notable vasopressor support as well as blood products. In his current condition, a continuous renal replacement therapy modality would be most appropriate. IHD deferred at this time. ICU team is in the process of discussing transfer to a tertiary care facility. Electrolyte was acceptable this morning. Potassium slightly high which should be monitored at least twice daily. Volume status acceptable. Medications appropriately dosed for kidney dysfunction. Vanco dosing to be coordinated with dialysis. Outpatient Rx: MWF, 180 optiflux, 4 hr, 400 Qb via catheter, EDW 109.5 kg. (2) Poornima-prosthetic femoral shaft fracture: POD #1. Concern for possible pathologic fracture. Hematology consulted for blasts on peripheral smear. (3) Anemia: 7th unit of PRBC support being provided this AM. (4) Cirrhosis: (5) History of mechanical aortic valve replacement: (6) Atrial fibrillation with RVR: (7) Admitted to intensive care unit: 28 minutes of critical care time provided today. Admission and Anticipated Discharge Date Admission Date: July 18, 2020 Subjective Ross remains hemodynamically unstable and critically ill. He was seen and evaluated in the ICU this morning. Plan of care was discussed with Dr. Bass, Dr. Block, and Dr. Nicholas. Ross remains on infusions of dobutamine, phenylephrine, and norepinephrine. Amiodarone gtt continued. Additional 1 u PRBC support is being provided. Oxygenating acceptably on FIO2 30%. Rate controlled Afib on monitor. Oligoanuric. Ross remains sedated. Review of Systems Review of Systems: Unobtainable due to endotracheal tube Physical Exam Constitutional: well developed, + morbidly obese and + mechanically ventilated Eyes: + anicteric sclerae; pupils not irregular ENMT: ETT Neck: normal visual inspection and trachea midline Respiratory: symmetric chest movement Auscultation: lungs clear to auscultation bilaterally Cardiovascular: Rate/Rhythm: + irregularly irregular Heart Sounds: normal S1, normal S2, + click and + murmur Extremities: no edema TDC Musculoskeletal: Extremities: no cyanosis L AKA Skin: normal turgor; no jaundice Neurologic: sedated Results & Data ([facility]) Vital Signs (Past 12 Hours) Vital Signs Temp Pulse Resp BP Pulse Ox 07/20/20 10:05 37.5 C 98 H 20 126/46 L 99 07/20/20 09:08 37.6 C H 99 H 20 116/42 L 100 07/20/20 08:20 110 H 23 100 07/20/20 08:08 37.6 C H 100 H 20 121/44 L 100 07/20/20 07:38 37.6 C H 104 H 20 128/43 L 100 07/20/20 07:23 37.6 C H 102 H 20 136/49 L 100 07/20/20 07:05 37.6 C H 99 H 20 132/44 L 100 07/20/20 06:43 37.7 C H 103 H 87/42 L 100 07/20/20 06:06 37.7 C H 104 H 88/51 L 100 07/20/20 06:00 37.7 C H 98 H 100 07/20/20 05:06 37.8 C H 101 H 92/57 L 100 07/20/20 04:15 101 H 20 100 07/20/20 04:11 38.0 C H 100 H 89/48 L 100 07/20/20 04:06 38.0 C H 103 H 85/57 L 100 07/20/20 04:00 38.0 C H 101 H 98 07/20/20 03:06 38.2 C H 108 H 93/54 L 99 07/20/20 02:06 38.4 C H 102 H 91/58 L 99 07/20/20 01:06 38.4 C H 104 H 89/50 L 98 07/20/20 00:55 110 H 20 98 07/20/20 00:06 38.5 C H 114 H 93/50 L 98 07/20/20 00:00 38.4 C H 109 H 99 07/19/20 23:06 38.5 C H 105 H 92/53 L 100 Laboratory Results Laboratory Results - last 24 hr 07/18/20 07/19/20 07/19/20 11:37 10:17 11:53 WBC 19.52 H RBC 3.33 L Hgb 10.4 L POC Hgb 10.2 L Hct 31.8 L POC Hct 30 L MCV 95.5 D MCH 31.2 MCHC 32.7 RDW Std Deviation 60.9 H RDW Coeff of Jose 17.8 H Plt Count 495 H MPV 10.9 H Absolute Nucleated RBC 1.78 H Nucleated RBC % (auto) 9.1 Neutrophils % (Manual) 43.6 Lymphocytes % (Manual) 28.7 Monocytes % (Manual) 8.3 Eosinophils % (Manual) Basophils % (Manual) 0.9 Metamyelocytes % (Man) 4.6 Myelocytes % (Man) 10.2 Promyelocytes % (Man) Blast Cells % (Manual) 2.8 Other Cells % 0.9 Neutrophils # (Manual) 8.51 H Total Absolute Neuts 8.51 H Lymphocytes # (Manual) 5.60 H Total Abs Lymphocytes 5.60 H Monocytes # (Manual) 1.62 H Eosinophils # (Manual) Basophils # (Manual) 0.18 Metamyelocytes # (Man) 0.90 H Myelocytes # (Manual) 1.99 H Promyelocytes # (Man) Blast Cells # (Man) 0.55 H Other Cells # 0.18 H Smudge Cells Giant Platelets 2+ Polychromasia Anisocytosis PT INR APTT PTT Ratio POC pH 7.33 L POC pCO2 44 POC pO2 192 H POC HCO3 23 POC Total CO2 24 POC Base Excess -3.0 POC ABG O2 Sat 100.0 H POC Sodium 135 Sodium POC Potassium 5.2 H Potassium Chloride Carbon Dioxide Anion Gap BUN Creatinine Est Cr Clr Drug Dosing Est GFR ( Amer) Est GFR (Non-Af Amer) BUN/Creatinine Ratio Glucose POC Glucose (other) Lactate Calcium Phosphorus Magnesium Total Bilirubin Direct Bilirubin AST ALT Alkaline Phosphatase Troponin I Total Protein Albumin Globulin Albumin/Globulin Ratio Hep Bs Antigen Hep Bs Antibody Hep Bs Antibody, Quant Blood Type O Positive Antibody Screen NEGATIVE Crossmatch See Detail 07/19/20 07/19/20 07/19/20 11:53 11:53 13:27 WBC RBC Hgb POC Hgb Hct POC Hct MCV MCH MCHC RDW Std Deviation RDW Coeff of Jose Plt Count MPV Absolute Nucleated RBC Nucleated RBC % (auto) Neutrophils % (Manual) Lymphocytes % (Manual) Monocytes % (Manual) Eosinophils % (Manual) Basophils % (Manual) Metamyelocytes % (Man) Myelocytes % (Man) Promyelocytes % (Man) Blast Cells % (Manual) Other Cells % Neutrophils # (Manual) Total Absolute Neuts Lymphocytes # (Manual) Total Abs Lymphocytes Monocytes # (Manual) Eosinophils # (Manual) Basophils # (Manual) Metamyelocytes # (Man) Myelocytes # (Manual) Promyelocytes # (Man) Blast Cells # (Man) Other Cells # Smudge Cells Giant Platelets Polychromasia Anisocytosis PT 14.0 H INR 1.4 H APTT 30.7 PTT Ratio 1.2 POC pH 7.31 L POC pCO2 43 POC pO2 114 H POC HCO3 22 POC Total CO2 23 L POC Base Excess -5.0 POC ABG O2 Sat 98.0 H POC Sodium Sodium 139 POC Potassium Potassium 5.1 Chloride 105 Carbon Dioxide 22 Anion Gap 12.0 H BUN 28 H Creatinine 4.95 H* Est Cr Clr Drug Dosing 15.5 Est GFR ( Amer) 12.2 Est GFR (Non-Af Amer) 10.5 BUN/Creatinine Ratio 5.7 L Glucose 169 H POC Glucose (other) Lactate Calcium 8.6 Phosphorus Magnesium Total Bilirubin 3.0 H D Direct Bilirubin AST 30 ALT 11 L Alkaline Phosphatase 149 H Troponin I 0.043 Total Protein 6.3 L D Albumin 2.5 L Globulin 3.8 Albumin/Globulin Ratio 0.7 L Hep Bs Antigen Hep Bs Antibody Hep Bs Antibody, Quant Blood Type Antibody Screen Crossmatch 07/19/20 07/19/20 07/19/20 15:30 15:30 16:42 WBC RBC Hgb POC Hgb Hct POC Hct MCV MCH MCHC RDW Std Deviation RDW Coeff of Jose Plt Count MPV Absolute Nucleated RBC Nucleated RBC % (auto) Neutrophils % (Manual) Lymphocytes % (Manual) Monocytes % (Manual) Eosinophils % (Manual) Basophils % (Manual) Metamyelocytes % (Man) Myelocytes % (Man) Promyelocytes % (Man) Blast Cells % (Manual) Other Cells % Neutrophils # (Manual) Total Absolute Neuts Lymphocytes # (Manual) Total Abs Lymphocytes Monocytes # (Manual) Eosinophils # (Manual) Basophils # (Manual) Metamyelocytes # (Man) Myelocytes # (Manual) Promyelocytes # (Man) Blast Cells # (Man) Other Cells # Smudge Cells Giant Platelets Polychromasia Anisocytosis PT INR APTT PTT Ratio POC pH POC pCO2 POC pO2 POC HCO3 POC Total CO2 POC Base Excess POC ABG O2 Sat POC Sodium Sodium POC Potassium Potassium Chloride Carbon Dioxide Anion Gap BUN Creatinine Est Cr Clr Drug Dosing Est GFR ( Amer) Est GFR (Non-Af Amer) BUN/Creatinine Ratio Glucose POC Glucose (other) 160 H Lactate 5.7 H* Calcium Phosphorus Magnesium Total Bilirubin Direct Bilirubin AST ALT Alkaline Phosphatase Troponin I Total Protein Albumin Globulin Albumin/Globulin Ratio Hep Bs Antigen Neg Hep Bs Antibody Non-Immune Hep Bs Antibody, Quant < 3.10 L Blood Type Antibody Screen Crossmatch 07/19/20 07/19/20 07/19/20 17:19 19:58 20:20 WBC 18.78 H RBC 2.78 L Hgb 8.5 L POC Hgb Hct 26.0 L POC Hct MCV 93.5 MCH 30.6 MCHC 32.7 RDW Std Deviation 60.5 H RDW Coeff of Jose 18.0 H Plt Count 503 H MPV 10.6 H Absolute Nucleated RBC 1.94 H Nucleated RBC % (auto) 10.3 Neutrophils % (Manual) 47.2 Lymphocytes % (Manual) 32.1 Monocytes % (Manual) 6.3 Eosinophils % (Manual) 2.7 Basophils % (Manual) Metamyelocytes % (Man) 2.7 Myelocytes % (Man) 1.8 Promyelocytes % (Man) 2.7 Blast Cells % (Manual) 4.5 Other Cells % Neutrophils # (Manual) 8.86 H Total Absolute Neuts 8.86 H Lymphocytes # (Manual) 6.03 H Total Abs Lymphocytes 6.03 H Monocytes # (Manual) 1.18 H Eosinophils # (Manual) 0.51 H Basophils # (Manual) Metamyelocytes # (Man) 0.51 H Myelocytes # (Manual) 0.34 H Promyelocytes # (Man) 0.51 H Blast Cells # (Man) 0.85 H Other Cells # Smudge Cells Present Giant Platelets Polychromasia 1+ Anisocytosis Present PT INR APTT PTT Ratio POC pH POC pCO2 POC pO2 POC HCO3 POC Total CO2 POC Base Excess POC ABG O2 Sat POC Sodium Sodium POC Potassium Potassium Chloride Carbon Dioxide Anion Gap BUN Creatinine Est Cr Clr Drug Dosing Est GFR ( Amer) Est GFR (Non-Af Amer) BUN/Creatinine Ratio Glucose POC Glucose (other) 146 H Lactate 4.6 H* Calcium Phosphorus Magnesium Total Bilirubin Direct Bilirubin AST ALT Alkaline Phosphatase Troponin I Total Protein Albumin Globulin Albumin/Globulin Ratio Hep Bs Antigen Hep Bs Antibody Hep Bs Antibody, Quant Blood Type Antibody Screen Crossmatch 07/19/20 07/20/20 07/20/20 23:20 00:23 03:48 WBC RBC Hgb 8.2 L POC Hgb Hct 24.4 L POC Hct MCV MCH MCHC RDW Std Deviation RDW Coeff of Jose Plt Count MPV Absolute Nucleated RBC Nucleated RBC % (auto) Neutrophils % (Manual) Lymphocytes % (Manual) Monocytes % (Manual) Eosinophils % (Manual) Basophils % (Manual) Metamyelocytes % (Man) Myelocytes % (Man) Promyelocytes % (Man) Blast Cells % (Manual) Other Cells % Neutrophils # (Manual) Total Absolute Neuts Lymphocytes # (Manual) Total Abs Lymphocytes Monocytes # (Manual) Eosinophils # (Manual) Basophils # (Manual) Metamyelocytes # (Man) Myelocytes # (Manual) Promyelocytes # (Man) Blast Cells # (Man) Other Cells # Smudge Cells Giant Platelets Polychromasia Anisocytosis PT INR APTT PTT Ratio POC pH POC pCO2 POC pO2 POC HCO3 POC Total CO2 POC Base Excess POC ABG O2 Sat POC Sodium Sodium POC Potassium Potassium Chloride Carbon Dioxide Anion Gap BUN Creatinine Est Cr Clr Drug Dosing Est GFR ( Amer) Est GFR (Non-Af Amer) BUN/Creatinine Ratio Glucose POC Glucose (other) 154 H 156 H Lactate Calcium Phosphorus Magnesium Total Bilirubin Direct Bilirubin AST ALT Alkaline Phosphatase Troponin I Total Protein Albumin Globulin Albumin/Globulin Ratio Hep Bs Antigen Hep Bs Antibody Hep Bs Antibody, Quant Blood Type Antibody Screen Crossmatch 07/20/20 07/20/20 07/20/20 04:25 04:25 04:25 WBC 16.25 H RBC 2.34 L Hgb 7.4 L POC Hgb Hct 22.0 L POC Hct MCV 94.0 MCH 31.6 MCHC 33.6 RDW Std Deviation 61.6 H RDW Coeff of Jose 18.3 H Plt Count 451 H MPV 10.6 H Absolute Nucleated RBC 1.35 H Nucleated RBC % (auto) 8.3 Neutrophils % (Manual) 43.5 Lymphocytes % (Manual) 31.3 Monocytes % (Manual) 4.3 Eosinophils % (Manual) 1.7 Basophils % (Manual) 2.6 Metamyelocytes % (Man) Myelocytes % (Man) 7.0 Promyelocytes % (Man) Blast Cells % (Manual) 9.6 Other Cells % Neutrophils # (Manual) 7.07 H Total Absolute Neuts 7.07 H Lymphocytes # (Manual) 5.09 H Total Abs Lymphocytes 5.09 H Monocytes # (Manual) 0.70 H Eosinophils # (Manual) 0.28 Basophils # (Manual) 0.42 H Metamyelocytes # (Man) Myelocytes # (Manual) 1.14 H Promyelocytes # (Man) Blast Cells # (Man) 1.56 H Other Cells # Smudge Cells Giant Platelets Polychromasia Anisocytosis PT 14.6 H INR 1.5 H APTT PTT Ratio POC pH POC pCO2 POC pO2 POC HCO3 POC Total CO2 POC Base Excess POC ABG O2 Sat POC Sodium Sodium 137 POC Potassium Potassium 4.6 Chloride 107 Carbon Dioxide 21 Anion Gap 9.0 BUN 30 H Creatinine 4.91 H* Est Cr Clr Drug Dosing 16.2 Est GFR ( Amer) 12.3 Est GFR (Non-Af Amer) 10.6 BUN/Creatinine Ratio 6.2 L Glucose 142 H POC Glucose (other) Lactate Calcium 7.0 L D Phosphorus 4.7 Magnesium 1.7 L Total Bilirubin 1.5 H Direct Bilirubin 0.9 H AST 43 H ALT 11 L Alkaline Phosphatase 130 H Troponin I Total Protein 4.8 L D Albumin 1.9 L Globulin Albumin/Globulin Ratio Hep Bs Antigen Hep Bs Antibody Hep Bs Antibody, Quant Blood Type Antibody Screen Crossmatch 07/20/20 07/20/20 04:30 08:03 WBC RBC Hgb POC Hgb 7.5 L Hct POC Hct 22 L MCV MCH MCHC RDW Std Deviation RDW Coeff of Jose Plt Count MPV Absolute Nucleated RBC Nucleated RBC % (auto) Neutrophils % (Manual) Lymphocytes % (Manual) Monocytes % (Manual) Eosinophils % (Manual) Basophils % (Manual) Metamyelocytes % (Man) Myelocytes % (Man) Promyelocytes % (Man) Blast Cells % (Manual) Other Cells % Neutrophils # (Manual) Total Absolute Neuts Lymphocytes # (Manual) Total Abs Lymphocytes Monocytes # (Manual) Eosinophils # (Manual) Basophils # (Manual) Metamyelocytes # (Man) Myelocytes # (Manual) Promyelocytes # (Man) Blast Cells # (Man) Other Cells # Smudge Cells Giant Platelets Polychromasia Anisocytosis PT INR APTT PTT Ratio POC pH 7.38 POC pCO2 38 POC pO2 93 POC HCO3 23 POC Total CO2 24 POC Base Excess -2.0 POC ABG O2 Sat 97.0 H POC Sodium 132 L Sodium POC Potassium 5.0 Potassium Chloride Carbon Dioxide Anion Gap BUN Creatinine Est Cr Clr Drug Dosing Est GFR ( Amer) Est GFR (Non-Af Amer) BUN/Creatinine Ratio Glucose POC Glucose (other) 170 H Lactate Calcium Phosphorus Magnesium Total Bilirubin Direct Bilirubin AST ALT Alkaline Phosphatase Troponin I Total Protein Albumin Globulin Albumin/Globulin Ratio Hep Bs Antigen Hep Bs Antibody Hep Bs Antibody, Quant Blood Type Antibody Screen Crossmatch PG Care Time/CCT Total # of Minutes Spent Total Time Spent with Patient: Total time spent is greater than 50% in coordination of care (as documented) at patient's floor/unit and/or counseling patient: Coding Level of Care Code 11203 Subseq Hosp Care Lvl 3 Diagnoses ESRD (end stage renal disease) N18.6 Poornima-prosthetic femoral shaft fracture M97.8XXA; Z96.649 Anemia D64.9 Anemia type: unspecified type Cirrhosis K74.60; R18.8 Hepatic cirrhosis type: unspecified hepatic cirrhosis Ascites presence: with ascites History of mechanical aortic valve replacement Z95.2 Atrial fibrillation with RVR I48.91 Admitted to intensive care unit Z78.9 (1) Anemia Anemia type: unspecified type Qualified Code(s): D64.9 - Anemia, unspecified (2) Cirrhosis Hepatic cirrhosis type: unspecified hepatic cirrhosis Ascites presence: with ascites Qualified Code(s): K74.60 - Unspecified cirrhosis of liver; R18.8 - Other ascites
--- NOTE | 2020-07-20 11:38 | Consultation Report ---
DATE OF CONSULTATION: 07/20/2020 HEMATOLOGY CONSULTATION REASON FOR CONSULTATION: Probable acute leukemia. HISTORY OF PRESENT ILLNESS: Mr. Merchant is a 75-year-old male who was admitted to [facility] this past Wednesday after suffering a periprosthetic femoral shaft fracture. Apparently according to medical staff, the patient was getting out of bed and turned resulting in a fracture and falling to the floor. He was brought to the Emergency Room and was found to be profoundly anemic. He received approximately 2 units of FFP and 6 units of packed RBCs thus far. Ross is receiving blood during my encounter today. I was alerted by the hospitalist service as this gentleman is sedated and intubated of his current hematologic issues. His most recent peripheral blood reveals the presence of immature forms, blasts, metamyelocytes, myelocytes and nucleated RBCs. The MCV is mildly elevated and his platelets are currently above normal. This gentleman unfortunately has multiple comorbid issues as well including metallic heart valve, morbid obesity, hypertension, type 2 diabetes mellitus, left BKA, atrial fibrillation, and end-stage renal disease. I am being asked for opinion regarding his current hematologic status. PAST MEDICAL HISTORY: As per HPI. Again, end-stage renal failure, atrial fibrillation, status post amputation of left lower extremity below knee, anemia, bronchitis, diabetes mellitus, CHF, gout, hyperlipidemia, hypertension. PAST SURGICAL HISTORY: Includes appendectomy, cholecystectomy, mechanical heart valve placed in 1997 and operative fixation of the fractured distal right femur. MEDICATIONS: Prior to admission, warfarin 4 mg p.o. daily, vancomycin 125 mg p.o. q.i.d., metoprolol tartrate 75 mg p.o. daily, allopurinol 200 mg p.o. daily, Tylenol 650 mg p.o. as directed p.r.n., levothyroxine 50 mcg p.o. daily, Protonix 40 mg p.o. daily, gemfibrozil 600 mg p.o. daily, aspirin 81 mg p.o. daily. ALLERGIES: ENOXAPARIN, MORPHINE, ADHESIVE AND OXYCODONE. SOCIAL HISTORY: The patient lives with his spouse. He is retired. He is a nonsmoker, nondrinker, non-illicit drug user. FAMILY HISTORY: Positive for diabetes mellitus. REVIEW OF SYSTEMS: Unobtainable as the patient is sedated and intubated. PHYSICAL EXAMINATION: GENERAL: A 75-year-old sedated and ventilated gentleman appears in no acute distress. VITAL SIGNS: Temperature 37.6, pulse 110, respiratory rate 23, blood pressure 121/44. SKIN: Without rash or lesion. Turgor is fair. HEENT: Again, patient is intubated. HEART: Tachy, but regular. LUNGS: Clear to auscultation. ABDOMEN: Obese, soft, nontender, nondistended. No palpable hepatosplenomegaly. EXTREMITIES: Below knee left amputation, right lower extremity immobilized at present. NEUROLOGIC: Again, formal neurologic exam is not performed. LABORATORY DATA: WBC count 16,250, hemoglobin 7.4, platelet count 451,000, absolute neutrophil count 7000, lymphocyte count is 5000. There are basophils, metamyelocytes, myelocytes and promyelocytes as well as leukemic blasts seen peripherally. Peripheral smear was formally examined by myself and concur with these counts. Coags: PT 14.6 seconds, INR 1.5. Sodium 137, potassium 4.6, carbon dioxide 21, creatinine 4.91. Lactate 4.6, magnesium 1.7, albumin 1.9. IMPRESSION: 1. Probable acute leukemia. 2. Status post open reduction and internal fixation of right distal femoral fracture. 3. Hypoalbuminemia. 4. Thrombocytosis. 5. End-stage renal disease. 6. Severe anemia. 7. Hemorrhagic shock. 8. Protected airway, mechanical ventilatory support. PLAN: I saw and examined Ross at bedside this morning. Again, reviewed the peripheral smear, which is consistent with an acute leukemic process. His peripheral counts are interesting in other ways. First and foremost, MCV has been mildly elevated, which would suggest perhaps some underlying myelodysplasia. Equally there are basophils present and his platelet count is elevated, which would suggest possibly a myeloproliferative origin such as CML. Nonetheless, [facility] is not equipped with flow cytometrics, cytogenetics and the expertise to offer this gentleman induction therapy. With his comorbid issues, first and foremost, we should discuss with family their wishes and desires considering this gentleman's medical history. He has received a significant transfusional support and certainly at high risk for TRALI. Therefore, if the family desires aggressive care, I strongly recommend Mr. Merchant be transferred to a tertiary facility such as [facility] or [facility]. I agree with current medical management and would not make any further formal recommendations at this time. If there are any questions or concerns, I can be contacted by phone. This gentleman is indeed critically ill and decision should be made within the next 24 hours. THOM
[2020-07-20] MEDS ORDERED: ONDANSETRON 4 MG OD TAB SL PRN (12:04)
[2020-07-20] MEDS ORDERED: LORazepam 0.5 MG/1 ML VIAL IV PRN (12:04)
[2020-07-20] MEDS ORDERED: ATROPINE SULFATE 1% OP SOLN 5 ML BTL SL PRN (12:04)
[2020-07-20] MEDS ORDERED: ONDANSETRON INJ 2 MG/ML 2 ML VIAL IV PRN (12:04)
[2020-07-20] MEDS ORDERED: LORazepam 0.5 MG TAB PO PRN (12:04)
[2020-07-20] MEDS: HYDROmorphone INJ 0.5 MG/0.5 ML SYR IV PRN (15:51)
--- NOTE | 2020-07-20 21:16 | Hospitalist Progress Note ---
Date of Service July 20, 2020 Assessment & Plan (1) Hemorrhagic shock: lost at least 1L of blood intraoperatively, may have lost more blood prior to surgery received 6 units of PRBC intra-operatively post op he required pressor support, could not be turned off, BP would drop 20 points systolic transitioned to comfort measures today, pressors stopped Hb is 7.4 today, no plans for further transfusions (2) AML (acute myeloblastic leukemia): suspected AML over 1% blasts in peripheral differential cannot treat AML here, only option would be referral to tertiary care, would need bone marrow biopsy Dr. Bass discussed with his at baseline he has numerous medical issues such as ESRD, bed bound, Afib, mechanical AVR currently he is recovering from significant surgery to his femur, will be NWB for at least 6 weeks patient's did not want to transfer, elected to transition to comfort care extubated, transferred to floor (3) Poornima-prosthetic femoral shaft fracture: this was mechanical fall, he cannot sleep at night so he will sit up with right leg hanging off bed for comfort he fell asleep while sitting up and fell off the bed, right leg hit and twisted on impact and he had immediate pain Surgical correction by Dr. Ryan on 07/19 EBL was about 1 liter, received 6 units in the OR Hb is 7.4 this morning would need to be NWB on leg for 6 weeks (4) Afib: INR 1.7 on admission, gave Vitamin K 2.5mg IV, hold Coumadin went into RVR during surgery, treated with amiodarone bolus/drip now in ICU BP is low, lost a lot of blood all medications stopped, comfort measures (5) History of mechanical aortic valve replacement: 1997, takes Coumadin, INR was only 1.7 on admission reversed INR for surgery no plans for hep drip now that he is comfort care (6) Acute electrocardiogram changes: ST depressions notes in anterior leads no chest pain or pressure, troponin 0.02 for three sets echo with preserved left ventricle EF, RV is dilated, AV in good position (7) ESRD (end stage renal disease): consult Dr. Raymond electrolytes normal and appears euvolemic he had a full HD session on 07/17 no plans for further HD, comfort care (8) C. difficile diarrhea: recovering from ongoing infection down to Vancomycin once a day prior to admission (9) Morbid obesity with BMI of 40.0-44.9, adult: (10) Hyperlipidemia: (11) Hypertension: (12) Anemia: Hb down to 7.4 lost at least one liter of blood intraop received 6 units PRBC (13) GERD (gastroesophageal reflux disease): Admission and Anticipated Discharge Date Admission Date: July 18, 2020 Subjective patient still on two pressors this morning reviewed labs, WBC 16 with blasts, consulted Dr. Nicholas he feels the patient is developing AML, Hb and platelets stable he would recommend transfer to [facility] Dr. Bass discussed with his , she would not want transfer given his frail state with ESRD, bed bound, AVR, afib would not be able to tolerate intense chemotherapy she requested the patient be made comfortable he was extubated and pressors stopped, transferred to medical floor Review of Systems Review of Systems: Unobtainable due to endotracheal tube Physical Exam Constitutional: well developed, + morbidly obese and + mechanically ventilated; no acute distress Neck: trachea midline, no thyromegaly Respiratory: normal respiratory effort, lungs clear to auscultation Cardiovascular: RRR, no murmur, no edema Chest (Breasts): Chest: + vascular access device or port (right tunneled HD catheter) Gastrointestinal (Abdomen): normal bowel sounds, soft, nontender, no hepatosplenomegaly Musculoskeletal: Head/Neck/Chest: normocephalic, head atraumatic and neck supple Extremities: + limited ROM of extremities, + abnormal strength (very weak, cannot transfer) and + amputation noted (left BKA); no cyanosis, no clubbing and no petechiae Skin: no rashes, warm and dry Neurologic: + obtunded; no focal motor deficits Lymphatic: no cervical or axillary lymphadenopathy Results & Data Results & Data ([facility]) Vital Signs (Past 12 Hours) Vital Signs Temp Pulse Resp BP Pulse Ox 07/20/20 12:00 37.6 C H 101 H 99 07/20/20 11:07 37.5 C 97 H 94/53 L 100 07/20/20 10:06 37.5 C 100 H 106/61 99 07/20/20 10:05 37.5 C 98 H 20 126/46 L 99 07/20/20 09:08 37.6 C H 99 H 20 116/42 L 100 Laboratory Results Laboratory Results - last 24 hr 07/18/20 07/19/20 07/19/20 11:37 19:58 23:20 WBC 18.78 H RBC 2.78 L Hgb 8.5 L POC Hgb Hct 26.0 L POC Hct MCV 93.5 MCH 30.6 MCHC RDW Std Deviation 60.5 H RDW Coeff of Jose 18.0 H Plt Count MPV Absolute Nucleated RBC 1.94 H Nucleated RBC % (auto) 10.3 Neutrophils % (Manual) 47.2 Lymphocytes % (Manual) 32.1 Monocytes % (Manual) 6.3 Eosinophils % (Manual) 2.7 Basophils % (Manual) Metamyelocytes % (Man) 2.7 Myelocytes % (Man) 1.8 Promyelocytes % (Man) 2.7 Blast Cells % (Manual) 4.5 Neutrophils # (Manual) 8.86 H Total Absolute Neuts 8.86 H Lymphocytes # (Manual) 6.03 H Total Abs Lymphocytes 6.03 H Monocytes # (Manual) 1.18 H Eosinophils # (Manual) 0.51 H Basophils # (Manual) Metamyelocytes # (Man) 0.51 H Myelocytes # (Manual) 0.34 H Promyelocytes # (Man) 0.51 H Blast Cells # (Man) 0.85 H Smudge Cells Present Polychromasia 1+ Anisocytosis Present PT INR POC pH POC pCO2 POC pO2 POC HCO3 POC Total CO2 POC Base Excess POC ABG O2 Sat POC Sodium Sodium POC Potassium Potassium Chloride Carbon Dioxide Anion Gap BUN Creatinine Est Cr Clr Drug Dosing Est GFR ( Amer) Est GFR (Non-Af Amer) BUN/Creatinine Ratio Glucose POC Glucose (other) 154 H Calcium Phosphorus Magnesium Total Bilirubin Direct Bilirubin AST ALT Alkaline Phosphatase Total Protein Albumin Blood Type O Positive Antibody Screen NEGATIVE Crossmatch See Detail 07/20/20 07/20/20 07/20/20 00:23 03:48 04:25 WBC 16.25 H RBC 2.34 L Hgb 8.2 L 7.4 L POC Hgb Hct 24.4 L 22.0 L POC Hct MCV 94.0 MCH 31.6 MCHC 33.6 RDW Std Deviation 61.6 H RDW Coeff of Jose 18.3 H Plt Count 451 H MPV 10.6 H Absolute Nucleated RBC 1.35 H Nucleated RBC % (auto) 8.3 Neutrophils % (Manual) 43.5 Lymphocytes % (Manual) 31.3 Monocytes % (Manual) 4.3 Eosinophils % (Manual) 1.7 Basophils % (Manual) 2.6 Metamyelocytes % (Man) Myelocytes % (Man) 7.0 Promyelocytes % (Man) Blast Cells % (Manual) 9.6 Neutrophils # (Manual) 7.07 H Total Absolute Neuts 7.07 H Lymphocytes # (Manual) 5.09 H Total Abs Lymphocytes 5.09 H Monocytes # (Manual) 0.70 H Eosinophils # (Manual) 0.28 Basophils # (Manual) 0.42 H Metamyelocytes # (Man) Myelocytes # (Manual) 1.14 H Promyelocytes # (Man) Blast Cells # (Man) 1.56 H Smudge Cells Polychromasia Anisocytosis PT INR POC pH POC pCO2 POC pO2 POC HCO3 POC Total CO2 POC Base Excess POC ABG O2 Sat POC Sodium Sodium POC Potassium Potassium Chloride Carbon Dioxide Anion Gap BUN Creatinine Est Cr Clr Drug Dosing Est GFR ( Amer) Est GFR (Non-Af Amer) BUN/Creatinine Ratio Glucose POC Glucose (other) 156 H Calcium Phosphorus Magnesium Total Bilirubin Direct Bilirubin AST ALT Alkaline Phosphatase Total Protein Albumin Blood Type Antibody Screen Crossmatch 07/20/20 07/20/20 07/20/20 04:25 04:25 04:30 WBC RBC Hgb POC Hgb 7.5 L Hct POC Hct 22 L MCV MCH MCHC RDW Std Deviation RDW Coeff of Jose Plt Count MPV Absolute Nucleated RBC Nucleated RBC % (auto) Neutrophils % (Manual) Lymphocytes % (Manual) Monocytes % (Manual) Eosinophils % (Manual) Basophils % (Manual) Metamyelocytes % (Man) Myelocytes % (Man) Promyelocytes % (Man) Blast Cells % (Manual) Neutrophils # (Manual) Total Absolute Neuts Lymphocytes # (Manual) Total Abs Lymphocytes Monocytes # (Manual) Eosinophils # (Manual) Basophils # (Manual) Metamyelocytes # (Man) Myelocytes # (Manual) Promyelocytes # (Man) Blast Cells # (Man) Smudge Cells Polychromasia Anisocytosis PT 14.6 H INR 1.5 H POC pH 7.38 POC pCO2 38 POC pO2 93 POC HCO3 23 POC Total CO2 24 POC Base Excess -2.0 POC ABG O2 Sat 97.0 H POC Sodium 132 L Sodium 137 POC Potassium 5.0 Potassium 4.6 Chloride 107 Carbon Dioxide 21 Anion Gap 9.0 BUN 30 H Creatinine 4.91 H* Est Cr Clr Drug Dosing 16.2 Est GFR ( Amer) 12.3 Est GFR (Non-Af Amer) 10.6 BUN/Creatinine Ratio 6.2 L Glucose 142 H POC Glucose (other) Calcium 7.0 L D Phosphorus 4.7 Magnesium 1.7 L Total Bilirubin 1.5 H Direct Bilirubin 0.9 H AST 43 H ALT 11 L Alkaline Phosphatase 130 H Total Protein 4.8 L D Albumin 1.9 L Blood Type Antibody Screen Crossmatch 07/20/20 08:03 WBC RBC Hgb POC Hgb Hct POC Hct MCV MCH MCHC RDW Std Deviation RDW Coeff of Jose Plt Count MPV Absolute Nucleated RBC Nucleated RBC % (auto) Neutrophils % (Manual) Lymphocytes % (Manual) Monocytes % (Manual) Eosinophils % (Manual) Basophils % (Manual) Metamyelocytes % (Man) Myelocytes % (Man) Promyelocytes % (Man) Blast Cells % (Manual) Neutrophils # (Manual) Total Absolute Neuts Lymphocytes # (Manual) Total Abs Lymphocytes Monocytes # (Manual) Eosinophils # (Manual) Basophils # (Manual) Metamyelocytes # (Man) Myelocytes # (Manual) Promyelocytes # (Man) Blast Cells # (Man) Smudge Cells Polychromasia Anisocytosis PT INR POC pH POC pCO2 POC pO2 POC HCO3 POC Total CO2 POC Base Excess POC ABG O2 Sat POC Sodium Sodium POC Potassium Potassium Chloride Carbon Dioxide Anion Gap BUN Creatinine Est Cr Clr Drug Dosing Est GFR ( Amer) Est GFR (Non-Af Amer) BUN/Creatinine Ratio Glucose POC Glucose (other) 170 H Calcium Phosphorus Magnesium Total Bilirubin Direct Bilirubin AST ALT Alkaline Phosphatase Total Protein Albumin Blood Type Antibody Screen Crossmatch Medications Administered Current Inpatient Medications Atropine Sulfate (Atropine Sulfate 1% Op Soln 5 Ml Btl) 4 drops SL Q1H PRN PRN Reason: Secretions or pulm congestion Stop: 08/19/20 12:03 Last Admin: 07/20/20 18:20 Dose: 4 drops Documented by: Hydromorphone HCl (Hydromorphone Inj 0.5 Mg/0.5 Ml Syr) 0.5 mg IV Q4H PRN PRN Reason: Pain or Respiratory Distress Stop: 08/03/20 12:03 Last Admin: 07/20/20 15:51 Dose: 0.5 mg Documented by: Lorazepam (Ativan) 0.5 mg in 1 mls @ 1 mls/min IV Q4H PRN PRN Reason: Anxiety/Agitation Stop: 08/19/20 12:03 Ondansetron HCl (Ondansetron Inj 2 Mg/Ml 2 Ml Vial) 4 mg IV Q4H PRN PRN Reason: Nausea And Vomiting Stop: 08/19/20 12:03 PG Care Time/CCT Total # of Minutes Spent Total Time Spent with Patient: Total time spent is greater than 50% in coordination of care (as documented) at patient's floor/unit and/or counseling patient: Coding Level of Care Code 30346 Subseq Hosp Care Lvl 3 Diagnoses Hemorrhagic shock R57.8 AML (acute myeloblastic leukemia) C92.00 Poornima-prosthetic femoral shaft fracture M97.8XXA; Z96.649 Afib I48.91 History of mechanical aortic valve replacement Z95.2 Acute electrocardiogram changes R94.31 ESRD (end stage renal disease) N18.6 C. difficile diarrhea A04.72 Morbid obesity with BMI of 40.0-44.9, adult E66.01; Z68.41 Hyperlipidemia E78.5 Hyperlipidemia type: unspecified Hypertension I10 Hypertension type: essential hypertension Anemia D64.9 Anemia type: unspecified type GERD (gastroesophageal reflux disease) K21.9 Esophagitis presence: esophagitis presence not specified (1) Hyperlipidemia Hyperlipidemia type: unspecified Qualified Code(s): E78.5 - Hyperlipidemia, unspecified (2) Hypertension Hypertension type: essential hypertension Qualified Code(s): I10 - Essential (primary) hypertension (3) Anemia Anemia type: unspecified type Qualified Code(s): D64.9 - Anemia, unspecified (4) GERD (gastroesophageal reflux disease) Esophagitis presence: esophagitis presence not specified Qualified Code(s): K21.9 - Gastro-esophageal reflux disease without esophagitis
[2020-07-21] MEDS: HYDROmorphone INJ 0.5 MG/0.5 ML SYR IV PRN ×2 (00:37→04:29)
--- NOTE | 2020-07-21 06:20 | Death Pronouncement Note ---
Date of Service July 21, 2020 Pronouncement Note Admission Date Admission Date: July 18, 2020 Patient examined and no breath sounds, no pulse, checked for 1 minute no chest rise, pupils fixed and dilated did not respond to corneal abrasion time of called at 6:02 AM Contributing Factors (1) Hemorrhagic shock: (2) AML (acute myeloblastic leukemia): (3) Poornima-prosthetic femoral shaft fracture: (4) Afib: (5) History of mechanical aortic valve replacement: (6) Acute electrocardiogram changes: (7) ESRD (end stage renal disease): (8) C. difficile diarrhea: (9) Morbid obesity with BMI of 40.0-44.9, adult: (10) Hyperlipidemia: (11) Hypertension: (12) Anemia: (13) GERD (gastroesophageal reflux disease): Additional Data Attending physician: Myles Ryan MD
--- NOTE | 2020-07-21 08:15 | Discharge Summary ---
Date of Service July 21, 2020 Admission HPI Per Admitting Provider 75 yo male with history of ESRD on HD, atrial fibrillation, left BKA, DM type II, HTN, recent history of C diff infections. He presented to the ED early this morning after he fell out of his bed and landed on his head and right leg. He says he has a habit of staying up at night because he cannot sleep. He says that dialysis has messed up his normal sleep wake cycle. He typically sits up and watches TV at night. He has a habit of sitting in bed with his right leg handing off the side of the bed, he feels more comfortable like this. At baseline he is completely dependent on Reji lift for transitioning out of bed and into a chair. His takes complete care of him. Early in the morning he must have fallen asleep while sitting up because he suddenly fell off the bed, struck his head on the floor and struck his right knee and his right leg twisted underneath him. He had immediate severe pain in right leg. No pain in other joints and no headache. He was rushed to the ED by EMS. Found to have right distal femur fracture that is periprosthetic around prior right TKA. Case was discussed with Dr. Ryan by Dr. Campos in the ED, he can be managed here. Hospitalists were asked to admit patient. Principal Diagnosis Right distal femur periprosthetic fracture Discharge Exam no pulse, not breathing, no heart tones, no breath sounds, pupils fixed, unresponsive Discharge Data Allergies Allergy/AdvReac Type Severity Reaction Status Date / Time enoxaparin Allergy Intermediate Illness Verified 07/18/20 02:29 morphine Allergy Unknown Unknown Verified 07/18/20 02:29 adhesive AdvReac Intermediate SORES WITH Verified 07/18/20 02:29 "SOME TAPE" oxycodone AdvReac Intermediate HALLUCINATI Verified 07/18/20 02:29 ONS Consultations 07/18/20 05:35 ED Decision to Admit Stat 07/18/20 10:17 Consult Anesthesiology Routine 07/18/20 13:25 Consult Nephrology Routine 07/18/20 13:30 Consult Orthopedic Surgery Routine 07/19/20 12:03 Consult Cardiology Routine 07/19/20 12:49 Consult Bell Staff Stat 07/20/20 07:13 Consult Hematology Routine 07/20/20 12:05 Consult Palliative Care Routine Procedures Performed Operation Date: 07/19/20 07:00 Actual Procedures p Right Open Reduction Internal Fixation Periprosthetic Femur Fracture(Right) - Myles Ryan MD Ordered Studies 07/18/20 02:51 CT cervical spine wo con Urgent CT chest diagnostic wo con Urgent CT head/brain wo con Urgent CT thoracic spine wo con Urgent 07/19/20 07:00 FL femur RT 2V Routine 07/19/20 12:27 US point of care ultrasound Stat Hospital Course (1) Hemorrhagic shock: lost at least 1L of blood intraoperatively, may have lost more blood prior to surgery received 6 units of PRBC intra-operatively post op he required pressor support, could not be turned off, BP would drop 20 points systolic transitioned to comfort measures 07/20, pressors stopped Hb is 7.4 on 07/20, no plans for further transfusions patient transferred to medical floor, in the morning on 07/21 (2) AML (acute myeloblastic leukemia): suspected AML over 1% blasts in peripheral differential cannot treat AML here, only option would be referral to tertiary care, would need bone marrow biopsy Dr. Bass discussed with his at baseline he has numerous medical issues such as ESRD, bed bound, Afib, mechanical AVR currently he is recovering from significant surgery to his femur, will be NWB for at least 6 weeks patient's did not want to transfer, elected to transition to comfort care extubated, transferred to floor in morning on 07/21 (3) Poornima-prosthetic femoral shaft fracture: this was mechanical fall, he cannot sleep at night so he will sit up with right leg hanging off bed for comfort he fell asleep while sitting up and fell off the bed, right leg hit and twisted on impact and he had immediate pain Surgical correction by Dr. yRan on 07/19 EBL was about 1 liter, received 6 units in the OR Hb is 7.4 day after surgery would need to be NWB on leg for [address] Ryan that the patient had (4) Afib: INR 1.7 on admission, gave Vitamin K 2.5mg IV, hold Coumadin went into RVR during surgery, treated with amiodarone bolus/drip now in ICU BP is low, lost a lot of blood all medications stopped, comfort measures (5) History of mechanical aortic valve replacement: 1997, takes Coumadin, INR was only 1.7 on admission reversed INR for surgery no plans for hep drip now that he is comfort care (6) Acute electrocardiogram changes: ST depressions notes in anterior leads no chest pain or pressure, troponin 0.02 for three sets echo with preserved left ventricle EF, RV is dilated, AV in good position (7) ESRD (end stage renal disease): consult Dr. Raymond electrolytes normal and appears euvolemic he had a full HD session on 07/17 no plans for further HD, comfort care (8) C. difficile diarrhea: recovering from ongoing infection down to Vancomycin once a day prior to admission (9) Morbid obesity with BMI of 40.0-44.9, adult: (10) Hyperlipidemia: (11) Hypertension: (12) Anemia: Hb down to 7.4 lost at least one liter of blood intraop received 6 units PRBC (13) GERD (gastroesophageal reflux disease): Total Time Total Time Spent Total Time Spent (In Minutes): 10 Total Time Includes: Other (documentation) Discharge Plan Discharge Items Patient Disposition: Discharge Diagnosis: hemorrhagic shock Addtl Attending Provider Instructions: none Coding Level of Care Code D/C Day Management <30 mins Diagnoses Hemorrhagic shock R57.8 AML (acute myeloblastic leukemia) C92.00 Poornima-prosthetic femoral shaft fracture M97.8XXA; Z96.649 Afib I48.91 History of mechanical aortic valve replacement Z95.2 Acute electrocardiogram changes R94.31 ESRD (end stage renal disease) N18.6 C. difficile diarrhea A04.72 Morbid obesity with BMI of 40.0-44.9, adult E66.01; Z68.41 Hyperlipidemia E78.5 Hyperlipidemia type: unspecified Hypertension I10 Hypertension type: essential hypertension Anemia D64.9 Anemia type: unspecified type GERD (gastroesophageal reflux disease) K21.9 Esophagitis presence: esophagitis presence not specified
== END 2020-07-21 09:21 | disposition expired | DRG 480 ==
LOC: ED 02:06 → 2W 07:57 → 1E 07-19 11:11 → 3E 07-20 15:36